=== PATIENT | female | born 1965 | race Caucasian/White ===

== ENCOUNTER 2025-05-01 23:33 | Inpatient (IN) | payer OTHER, SELFPAY ==
--- OUTSIDE RECORDS SUMMARY | 2025-04-30 14:27 | XMS_ITS | Encounter Summary ---
[facility] Organization [facility] Address [address] [place] [address] Care Team Providers Care Malthouse Laborer Name Role Phone Polo Kay NP Primary Care Provider [phone] Reason for Visit * Reason Comments Shortness of Breath X2 d. Hx asthma. Use d inhaler yest w/ no relief. Equal and symmetrical chest rise and fall. NAD. RR appropriate on arrival. Speaking in full sentences Encounter Details Date Type Department Care Team (Late st Contact Info) Description 04/30/2025 2:27 PM EST - 04/30/2025 6:46 PM EST Emergency [facility] Emergency [address] [place] [id number] Iggy Tse MD [address] [place] [address] Pneumonia of left lung due to infectious organism, unspecified part of lung (Primary Dx); Mild intermittent asthma with exacerbation Discharge Disposition: Home or Self Care Social History Tobacco Use Types Packs/Day Years Used Date Smoking Tobacco: Every Day Cigarettes Smokeless Tobacco: Never Comments:Reports cessation o ccurring 2023 after diagnosis of stroke Alcohol Use Standard Drinks/Week Comments Not Currently 0 (1 standard drink = 0.6 oz pur e alcohol) Housing Instability Answer Date Recorde d Are you worried that in the next 2 months you may not have stable housing? Patient declined 08/19/2024 Food Access & Nutrition Answer Date Rec orded Do you have access to a vari ety of food including fruits and vegetables? Patient declined 08/19/2024 Access to Healthcare Answer Date Record ed Within the last 3 months, ho w many times did you visit the emergency department for your medical care? 4 08/19/2024 Health Literacy Answer Date Recorded How often do you need to hav e someone help you when you read instructions, pamphlets, or other written material from your doctor or pharmacy? Patient declined 08/19/2024 Caregiver: How often do you need to have someone help you when you read instructions, pamphlets, or other written material from your doctor or pharmacy? Not on file 025 Financial Risk Answer Date Recorded How hard is it for you to pa y for the very basics like food, housing, medical care, and air conditioning / heating? Patient declined 08/19/2024 Transportation Answer Date Recorded Has the lack of transportati on kept you from meetings, work, or from getting things needed for daily living? Patient declined 08/19/2024 Has the lack of transportati on kept you from medical appointments or from getting medications? Patient declined 08/19/2024 Social Isolation Answer Date Recorded How often do you feel lonely or isolated from those around you? Patient declined 08/19/2024 Food Risk Answer Date Recorded Within the past 12 months we worried whether our food would run out before we got money to buy more. Patient declined 025 Within the past 12 months th e food we bought just didn't last and we didn't have money to get more. Patient declined 07/2024 Dependent Care Answer Date Recorded Do you need help finding or paying for care for your loved ones. For example, child care team lead or elderly care for an older adult? Patient declined 08/19/2024 Education Answer Date Recorded Do you think completing more education or training, like finishing a GED, going to college, or learning a trade, would be helpful for you? Patient declined 08/19/2024 Employment and Income Answer Date Recor ded During the last four weeks, have you been actively looking for work? Patient declined 08/19/2024 Living Situation Answer Date Recorded What is your living situation? Unrecognized valu e 08/19/2024 Interpersonal Safety Answer Date Record ed Physical Abuse Unrecognized value 01/29/2025 Verbal Abuse Unrecognized value 01/29/2025 Comments No Sex and Gender Information Value Date Recorded Sex Assigned at Female 09/02/2024 12:34 PM EDT Legal Sex Female 5:29 AM EST Gender Identity Female 09/02/2024 12:34 PM EDT Sexual Orientation Straight 09/02/2024 12 :34 PM EDT documented as of this encounter Last Filed Vital Signs Vital Sign Reading Time Taken Comments Blood Pressure 143/63 04/30/2025 4:50 PM EST Pulse 76 04/30/2025 4:50 PM EST Temperature 37.1 C (98.8 F) 04/30/2025 4:50 PM EST Respiratory Rate 16 04/30/2025 4:50 PM EST Oxygen Saturation 94% 04/30/2025 4:50 PM EST Inhaled Oxygen Concentration - - Weight - - Height - - Body Mass Index - - documented in this encounter Functional Status * Are you deaf or do you have serious difficulty hearing? Answer Date of Assessment Author No 02/21/2025 6:12 PM EDT Murphy RN * Are you blind or do you have serious difficulty seeing, even when wearing glasses? Answer Date of Assessment Author No 02/21/2025 6:12 PM EDT Murphy RN * Do you have serious difficulty walking or climbing stairs? Answer Date of Assessment Author Yes 02/21/2025 6:12 PM EDT Murphy RN * Do you have serious difficulty dressing or bathing? Answer Date of Assessment Author Yes 02/21/2025 6:12 PM EDT Murphy RN * Because of a physical, mental, or emotional condition, do you have serious difficulty doing errandsalone such as visiting the doctor? Answer Date of Assessment Author No 01/11/2025 8:01 PM EDT Allyson Chester RN * Calculated C-SSRS Risk Score (Lifetime/Recent) Answer Date of Assessment Author No Risk Indicated 04/30/2025 3:10 PM EST Bola Mccloud RN * [place] Suicide Severity Rating Scale (Screener/Recent Self-Report) Question Answer Date of Assessment Author 1. Wish to be (Past 1 Month) No 025 3:10 PM EST Evelyn Mccloud RN 2. Non-Specific Active Suici nolberto Thoughts (Past 1 Month) No 04/30/2025 3:10 PM EST Evelyn Mccloud RN 6. Suicidal Behavior (Lifetime) No 3:10 PM EST Evelyn Mccloud RN documented as of this encounter Mental Status * Because of a physical, mental, or emotional condition, do you have serious difficulty concentrating, remembering, or making decisions? (5 years old or older) Answer Entry Date Author No 02/21/2025 6:12 PM EDT Murphy RN documented in this encounter Discharge Instructions * Discharge Instructions* Iggy Tse MD - 04/30/2025 5:09 PM EST DIAGNOSIS / RESULTS / PROCEDURES (what was done): You came to the ED for cough and shortness of breath. You have pneumonia. INSTRUCTIONS (what you need to do): Call your primary care doctor tomorrow to discuss when you should be seen next. Your doctor may want to arrange follow up for your visit today, or may ask to see you at your next scheduled visit. If you have difficulty breathing which does not respond to your home medications, return to the ED immediately. MEDICATIONS (what you need to take): Budesonide/formoterol inhaler (brand name Symbicort 80-4.5),1 to 2 puffs twice daily for maintenance, 1 to 2 puffs every 2-4 hours as needed for asthma symptoms. Doxycycline twice daily for 5 days documented in this encounter Medications at Time of Discharge aspirin 81 mg chewable tablet Chew 1 tablet (81 mg total) 1 (one) time each day. 12/03/2023 atorvastatin (LIPITOR) 80 mg tablet Take 1 tablet (80 mg total) by mouth at bedtime. budesonide-formo teroL (SYMBICORT) 160-4.5 mcg/actuation inhaler Inhale 2 puffs by mouth 2 (two) times a day. Rinse mouth with water after use to reduce aftertaste and incidence of candidiasis. Do not swallow. budesonide-formo teroL (SYMBICORT) 80-4.5 mcg/actuation inhaler Inhale 2 puffs by mouth 2 (two) times a day. May take additional 1 to 2 puffs as needed every 4 hours for wheeze. Rinse mouth with water after use to reduce aftertaste and incidence of candidiasis. Do not swallow. 1 each 04/30/2025 doxycycline (MONODOX) 100 mg capsule Take 1 capsule (100 mg total) by mouth 2 (two) times a day for 7 days. Take with at least 8 ounces (large glass) of water, do not lie down for 30 minutes after 14 each 04/30/2025 5 insulin glargine (LANTUS) 100 unit/mL injection Inject 12 Units under the skin at bedtime. insulin lispro (HumaLOG KwikPen) 100 unit/mL injection pen Inject 2-14 Units under the skin 3 (three) times a day before meals. NIFEdipine XL (PROCARDIA XL) 60 mg 24 hr tablet Take 1 tablet (60 mg total) by mouth 1 (one) time each day before breakfast. Do not crush, chew, or split. 30 each 02/03/2025 6 documented as of this encounter Ordered Prescriptions Prescription Sig Dispense Quantity Refills Last Filled Start Date End Date budesonide-formote roL (SYMBICORT) 80-4.5 mcg/actuation inhaler Inhale 2 puffs by mouth 2 (two) times a day. May take additional 1 to 2 puffs as needed every 4 hours for wheeze. Rinse mouth with water after use to reduce aftertaste and incidence of candidiasis. Do not swallow. 1 each 04/30/2025 doxycycline (MONODOX) 100 mg capsule Take 1 capsule (100 mg total) by mouth 2 (two) times a day for 7 days. Take with at least 8 ounces (large glass) of water, do not lie down for 30 minutes after 14 each 04/30/2025 5 documented in this encounter Discharge Disposition Disposition Code Departure Means Destination Comment s Home or Self Care Report to ems. Pt out of ed with ems with all belongings documented in this encounter Progress Notes * Evelyn Mccloud RN - 04/30/2025 2:27 PM EST Pt presents to ed [facility] from home lives w/ daughter. W/ c/o of Cough sob. X2 days. Denies fevers Ems gave albuterol neb x1 en route Pt is a/ox 4 speech clear Airway clear and patent, free and equal respirations Baseline O2 : ra Baseline ambulation status : bed bound. On first lock plater Notable swelling to L arm and leg , pt states this is baseline and now worsening. Notable dry healing wounds to L ankle pt states she hit her leg against a leg rest a few wks ago. No redness, streaking or warmth noted. Pt does report they are tender to palpation. Pt reports hx of Cva x2 w/ L sided hemiplegia. Ashtma , dm, hypertn, seizures. Is med complaint VS obtained and charted. Pt changed into hospital gown, Bed locked and in lowest position call ziegler within reach. Bilat side rails up for safety. * Iggy Tse MD - 04/30/2025 2:20 PM EST Emergency Medicine Note Patient Name: Kisha Vickers Initial Evaluation: 04/30/2025 : 1965 Patient's PCP: Polo Kay NP Emergency Physician: Iggy Tse MD History of Present Illness Chief Complaint: Chief Complaint Patient presents with Shortness of Breath X2 d. Hx asthma. Used inhaler yest w/ no relief. Equal and symmetrical chest rise and fall. NAD. RR appropriate on arrival. Speaking in full sentences HPI: 60-year-old female presents for cough and shortness of breath since yesterday. Patient does have a history of asthma, states she feels like she is having an asthma flareup. No fevers chills abdominal pain nausea vomiting or myalgias. States she took albuterol MDI 3 pumps x 2 at home without significant effect. Previous History Medical History[1] Surgical History[2] Social History[3] Family History[4] has no known allergies. Medications Ordered Prior to Encounter[5] Physical Exam ED Triage Vitals [04/30/25 1438] Temp Heart Rate Resp BP 36.7 ??C (98.1 ??F) 77 16 (!) 148/66 SpO2 Temp Source Heart Rate Source Patient Position 98 % Oral Monitor Lying BP Location FiO2 (%) Right arm -- GENERAL: Well-Appearing SKIN: Warm, dry, normal for ethnicity. No rashes. HEENT: Normal sclera, noninjected nonicteric CHEST: Normal peripheral perfusion, no edema PULMONARY: Mild accessory muscle use, 3-5 word dyspnea ABDOMINAL: Nondistended NEURO: Alert and oriented, moving all extremities equally PSYCHIATRIC: Normal affect, fluid speech, good eye contact and appropriate demeanor. Results Labs Reviewed [id number], RSV, FLU A AND B QUALITATIVE RT-PCR, INTERNAL LAB - Normal Result Value Influenza A PCR Not Detected Influenza B PCR Not Detected RSV PCR Not Detected SARS COV-2 Not Detected Abnormal Labs Reviewed - No abnormal labs to display XR Chest 2 Views Final Result Marked interval worsening. Near complete opacification left hemithorax at least some of which is due to fluid. There is aeration of the trachea and left mainstem bronchus. There is no definite bronchogram within the left lower lobe bronchus. -------- FINAL REPORT -------- Dictated By: Shaq Luna Dictated Date: 04/30/2025 16:57 ET Assigned Physician: Shaq Luna Reviewed and Electronically Signed By: Shaq Luna Signed Date: 04/30/2025 17:01 ET Workstation ID: [id number] Transcribed By: Self Edit Transcribed Date: 04/30/2025 16:57 ET I have discussed the incidental/abnormal imaging and/or lab abnormalities with the patient and haveinstructed them the need for further evaluation and workup with their primary care doctor. Medical Decision Making Differential Diagnosis: Asthma exacerbation, viral syndrome, pneumonia MDM: 60-year-old female history of asthma presents on day 2 of cough shortness of breath. Likely asthma exacerbation, updraft steroids and fluids ordered. Possible viral syndrome, evaluate short viral panel. Possible pneumonia, evaluate chest x-ray. Clinical Impression: Asthma exacerbation SEPSIS Exemption: [ x ] It is unlikely this patient has sepsis at the time of my evaluation. Medications cefTRIAXone (ROCEPHIN) 2 g in sterile water 20 mL IV syringe (has no administration in time range) azithromycin (ZITHROMAX) 500 mg in sodium chloride 0.9 % 250 mL IVPB (has no administration in timerange) methylPREDNISolone sodium succ (SOLU-Medrol) injection 125 mg (125 mg intravenous Given 04/30/25 1519) ipratropium-albuteroL (DUONEB) 0.5-2.5 mg/3 mL nebulizer solution 3 mL (3 mL nebulization Given 04/30/25 1519) albuterol 2.5 mg /3 mL (0.083 %) nebulizer solution 5 mg (5 mg nebulization Given 04/30/25 1518) lactated Ringer's bolus 1,000 mL (1,000 mL intravenous New Bag 04/30/25 1529) ED Course as of 04/30/25 1711 Sat Apr 30, 2025 1553 Short viral panel is negative, chest x-ray pending. [MG] 1707 XR Chest 2 Views My independent review and interpretation of chest x-ray: Left-sided pneumonia [MG] 1707 Patient appears to have left-sided pneumonia leading to the patient's respiratory symptoms. Patient's symptoms have markedly improved after updraft. She continues to have no O2 requirement. Willdischarge with Symbicort and antibiotics. [MG] ED Course User Index [MG] Iggy Tse MD Clinical Impressions as of 04/30/25 171 Mild intermittent asthma with exacerbation Pneumonia of left lung due to infectious organism, unspecified part of lung Procedures Procedures Diagnosis 1. Pneumonia of left lung due to infectious organism, unspecified part of lung 2. Mild intermittent asthma with exacerbation Disposition Discharge ED Prescriptions Medication Sig Dispense Start Date End Date Auth. Provider doxycycline (MONODOX) 100 mg capsule Take 1 capsule (100 mg total) by mouth 2 (two) times a day for7 days. Take with at least 8 ounces (large glass) of water, do not lie down for 30 minutes after 14each 04/30/2025 05/07/2025 Iggy Tse MD budesonide-formoteroL (SYMBICORT) 80-4.5 mcg/actuation inhaler Inhale 2 puffs by mouth 2 (two) times a day. May take additional 1 to 2 puffs as needed every 4 hours for wheeze. Rinse mouth with waterafter use to reduce aftertaste and incidence of candidiasis. Do not swallow. 1 each 04/30/2025 -- MD Iggy Tovar MD 04/30/25 1503 [1] Past Medical History: Diagnosis Date Anemia in chronic renal disease Symptomatic of CKD (chronic kidney disease) CKD (chronic kidney disease), stage III ([facility] V24, [facility] V28) CVA (cerebral vascular accident) ([facility] V24, [facility] V28) L sided hemiparesis Depression Depression with anxiety Diabetes mellitus ([facility] V24, [facility] V28) Meade catheter in place HLD (hyperlipidemia) HTN (hypertension) Hyperlipidemia Hypertension Smoker Urinary retention [2] Past Surgical History: Procedure Laterality Date CHOLECYSTECTOMY [3] Social History Tobacco Use Smoking status: Every Day Types: Cigarettes Smokeless tobacco: Never Tobacco comments: Reports cessation occurring 2023 after diagnosis of stroke Substance Use Topics Alcohol use: Not Currently Drug use: Never [4] Family History Problem Relation Name Age of Onset Hypertension Other Hyperlipidemia Other Diabetes Other [5] No current facility-administered medications on file prior to encounter. Current Outpatient Medications on File Prior to Encounter Medication Sig Dispense Refill aspirin 81 mg chewable tablet Chew 1 tablet (81 mg total) 1 (one) time each day. atorvastatin (LIPITOR) 80 mg tablet Take 1 tablet (80 mg total) by mouth at bedtime. budesonide-formoteroL (SYMBICORT) 160-4.5 mcg/actuation inhaler Inhale 2 puffs by mouth 2 (two) times a day. Rinse mouth with water after use to reduce aftertaste and incidence of candidiasis. Do notswallow. bumetanide (BUMEX) 1 mg tablet Take 1 tablet (1 mg total) by mouth 2 (two) times a day. 60 each 0 cloNIDine (JUNPZPUS-MVR-1) 0.2 mg/[address] 1 patch on the skin 1 (one) time per week. 4 each 0 furosemide (LASIX) 20 mg tablet Take 1 tablet (20 mg total) by mouth 1 (one) time each day for 10 days. 10 each 0 hydrALAZINE (APRESOLINE) 100 mg tablet Take 1 tablet (100 mg total) by mouth 3 (three) times a day.90 each 0 insulin glargine (LANTUS) 100 unit/mL injection Inject 12 Units under the skin at bedtime. insulin lispro (HumaLOG KwikPen) 100 unit/mL injection pen Inject 2-14 Units under the skin 3 (three) times a day before meals. labetaloL (NORMODYNE) 200 mg tablet Take 1 tablet (200 mg total) by mouth 3 (three) times a day. 90each 0 lamoTRIgine (LaMICtal) 25 mg tablet Take 1 tablet (25 mg total) by mouth 1 (one) time each day for 2 days, THEN 1 tablet (25 mg total) 2 (two) times a day. 62 each 0 nicotine (NICODERM CQ) 14 mg/[address] 1 patch on the skin 1 (one) time each day at the same time. 30 each 0 NIFEdipine XL (PROCARDIA XL) 60 mg 24 hr tablet Take 1 tablet (60 mg total) by mouth 1 (one) time each day before breakfast. Do not crush, chew, or split. 30 each 0 Iggy Tse MD 04/30/25 1711 documented in this encounter Plan of Treatment Not on file documented as of this encounter Goals Goal Patient Goal Type Associated Problems Recent Progress Patient-Stated? Author family goal General No Elena Wick, OT Note: Help pt get better as much as possible ltg (8 visits) General On track( 025 2:03 PM EST) No Elena Wick, OT Note: PROM L shldr elevation at least 90' for ease bathing axilla, donning tshirt 05/28/24 MET Partic in neuromuscular re-ed/HEP instruction, to minimize pain in LUE 05/28/24 MET Pt will initiate LUE as dependent stablizer (FUEL level 2; , currently Fuel Level1/Non fcnl) at least 50% of ADL tasks 05/28/24 Not Met, remains primarily Level 1 d/t flaccidity/tone/neglect Demo ability to don/doff short sleeve tshirt w/ set-up and vc's 05/28/24: partial met; able to doff short sleeve indep STG _ PT General No Johana To, PT Note: Pt will be I with HEP to demonstrate compliance with POC Pt will demonstrate mod assist from SL to sitting Pt will demonstrate mod assist fro STS LTG - PT General No Johana To, PT Note: Pt will demonstrate gait with platform walker Pt will be min assist transfer SL to sitting Pt will demonstrate min assist STS ST LTG General No Ene Moffett, IN PROCESS INSPECTOR Note: Pt will improve cognitive linguistic function to participate and communicate in basic ADLs supervision ST STGs General No Ene Moffett, IN PROCESS INSPECTOR Note: Pt will participate with development of personalized HEP to perform 4-5xs/wk with min assist for modifications Pt will participate in ongoing training of internal/external memory strategies and ID pertinent techniques to use in daily life with cg assist Pt will complete auditory and visual working memory/mental flexibility tasks of 2-3 components with min cues to be 80%ac Pt will complete verbal and written concrete convergent and divergent organization tasks with min semantic cues documented as of this encounter Procedures Procedure Name Priority Date/Time Associated Diagnosis Comments XR CHEST 2 VIEWS STAT 04/30/2025 4:45 PM EST [id number], RSV, FLU A AND B QUALITATIVE RT-PCR, INTERNAL LAB STAT 04/30/2025 2:59 PM EST documented in this encounter Results * XR Chest 2 Views (04/30/2025 4:45 PM EST) Anatomical Region Laterality Modality Body Radiographic Susan ging 04/30/2025 4:57 PM EST Impressions 04/30/2025 5:01 PM EST Marked interval worsening. Near complete opacification left hemithorax at least some of which is due to fluid. There is aeration of the trachea and left mainstem bronchus. There is no definite bronchogram within the left lower lobe bronchus. -------- FINAL REPORT -------- Dictated By: Shaq Luna Dictated Date: 04/30/2025 16:57 ET Assigned Physician: Shaq Luna Reviewed and Electronically Signed By: Shaq Luna Signed Date: 04/30/2025 17:01 ET Workstation ID: [id number] Transcribed By: Self Edit Transcribed Date: 04/30/2025 16:57 ET Narrative 04/30/2025 5:01 PM EST EXAMINATION: CHEST CLINICAL INFORMATION: Cough. Shortness of breath COMPARISON: Frontal view 04/04/25 TECHNIQUE: 2 views of the chest FINDINGS: There is kyphosis and rotation. The lateral view is significantly limited. There is calcification of the aortic arch. The cardiac size daisha and vasculature to the left side are obscured. There is opacification of the lower three quarters of the left hemithorax tracking along the lateral chest wall. Some vascular prominence in the right lung. No pneumothorax. No definite focal bony lesion. The humeral head is inferiorly positioned relative to the glenoid on the left. Chronic subluxation or laxity are present. Procedure Note Shaq Luna MD - 04/30/2025 EXAMINATION: CHEST CLINICAL INFORMATION: Cough. Shortness of breath COMPARISON: Frontal view 04/04/25 TECHNIQUE: 2 views of the chest FINDINGS: There is kyphosis and rotation. The lateral view is significantlylimited. There is calcification of the aortic arch. The cardiac size daisha andvasculature to the left side are obscured. There is opacification of thelower three quarters of the left hemithorax tracking along the lateralchest wall. Some vascular prominence in the right lung. No pneumothorax. No definite focal bony lesion. The humeral head is inferiorly positioned relative to the glenoid on theleft. Chronic subluxation or laxity are present. IMPRESSION: Marked interval worsening. Near complete opacification left hemithorax atleast some of which is due to fluid. There is aeration of the trachea andleft mainstem bronchus. There is no definite bronchogram within the leftlower lobe bronchus. -------- FINAL REPORT -------- Dictated By: Shaq Luna Dictated Date: 04/30/2025 16:57 ET Assigned Physician: Shaq Luna Reviewed and Electronically Signed By: Shaq Luna Signed Date: 04/30/2025 17:01 ET Workstation ID: [id number] Transcribed By: Self Edit Transcribed Date: 04/30/2025 16:57 ET Iggy Tse MD IMG XR PROCEDURES Final Result * [id number], RSV, Influenza A and B qualitative RT-PCR (04/30/2025 2:59 PM EST) Influenza A PCR Not Detected Not Detected LAB MICROBIOLOGY METHOD 04/30/2025 3:53 PM EST [facility] Influenza B PCR Not Detected Not Detected LAB MICROBIOLOGY METHOD 04/30/2025 3:53 PM EST [facility] RSV PCR Not Detected Not Detected LAB MICROBIOLOGY METHOD 04/30/2025 3:53 PM EST [facility] SARS COV-2 Not Detected Not Detected LAB MICROBIOLOGY METHOD 04/30/2025 3:53 PM EST [facility] Swab Both anterior nares / Unknown Non-blood Collection / Unknown 04/30/2025 2:59 PM EST 04/30/2025 3:08 PM EST Iggy Tse MD LAB MICROBIOLOGY - [facility]AL [facility] Final Result [facility] [address] [place] [address], [place] [phone] documented in this encounter Visit Diagnoses Diagnosis Pneumonia of left lung due to infectious organism, unspecified part of lung- Primary Mild intermittent asthma with exacerbation Unspecified asthma, with exacerbation documented in this encounter Administered Medications Inactive Administered Medications - up to 3 most recent administrations Medication Order MAR Action Action Date Dose Rate Site albuterol 2.5 mg /3 mL (0.083 %) nebulizer solution 5 mg 5 mg, nebulization, Once, On 04/30/25 at 1455, For 1 dose Given 04/30/2025 3:18 PM EST 5 mg azithromycin (ZITHROMAX) 500 mg in sodium chloride 0.9 % 250 mL IVPB 500 mg, intravenous, at 250 mL/hr, Administer over 60 Minutes, Once, On 04/30/25 at 1709, For 1 dose, Indication: Sepsis, Pneumonia, Community Acquired, Suspected source: . New Bag 04/30/2025 5:41 PM EST 500 mg 250 mL/hr cefTRIAXone (ROCEPHIN) 2 g in sterile water 20 mL IV syringe 2 g, intravenous, Administer over 3 Minutes, Once, On 04/30/25 at 1709, For 1 dose, Do not administer simultaneously with any calcium containing solutions via a Y-site in any patient., Indication: Sepsis, Pneumonia, Community Acquired, Suspected source: . Given 04/30/2025 5:42 PM EST 2 g ipratropium-albuteroL (DUONEB) 0.5-2.5 mg/3 mL nebulizer solution 3 mL 3 mL, nebulization, Once, On 04/30/25 at 1455, For 1 dose Given 04/30/2025 3:19 PM EST 3 mL lactated Ringer's bolus 1,000 mL 1,000 mL, intravenous, Once, On 04/30/25 at 1455, For 1 dose New Bag 04/30/2025 3:29 PM EST 1,000 mL methylPREDNISolone sodium succ (SOLU-Medrol) injection 125 mg 125 mg, intravenous, Once, On 04/30/25 at 1455, For 1 dose, Reconstitute each 125 mg vial with 2 mL sterile water for injection to a concentration of 62.5 mg/mL. Given 04/30/2025 3:19 PM EST 125 mg documented in this encounter Active and Recently Administered Medications Times are shown in EST. Scheduled Medication Order 04/28/2025 04/29/2025 04/30/2025 albuterol 2.5 mg /3 mL (0.083 %) nebulizer solution 5 mg (COMPLETED) 5 mg, nebulization, Once, On 04/30/25 at 1455, For 1 dose 1518 (Given - Provid er: Evelyn Mccloud RN) azithromycin (ZITHROMAX) 500 mg in sodium chloride 0.9 % 250 mL IVPB (COMPLETED) 500 mg, intravenous, at 250 mL/hr, Administer over 60 Minutes, Once, On 04/30/25 at 1709, For 1 dose, Indication: Sepsis, Pneumonia, Community Acquired, Suspected source: . 1741 (New Bag - Prov ider: Evelyn Mccloud RN)1845 (Stopped - Provider: Evelyn Mccloud RN) cefTRIAXone (ROCEPHIN) 2 g in sterile water 20 mL IV syringe (COMPLETED) 2 g, intravenous, Administer over 3 Minutes, Once, On 04/30/25 at 1709, For 1 dose, Do not administer simultaneously with any calcium containing solutions via a Y-site in any patient., Indication: Sepsis, Pneumonia, Community Acquired, Suspected source: . 1742 (Given - Provid er: Evelyn Mccloud RN) ipratropium-albuteroL (DUONEB) 0.5-2.5 mg/3 mL nebulizer solution 3 mL (COMPLETED) 3 mL, nebulization, Once, On 04/30/25 at 1455, For 1 dose 1519 (Given - Provid er: Evelyn Mccloud RN) lactated Ringer's bolus 1,000 mL (COMPLETED) 1,000 mL, intravenous, Once, On 04/30/25 at 1455, For 1 dose 1529 (New Bag - Prov ider: Evelyn Mccloud RN)1845 (Stopped - Provider: Evelyn Mccloud RN) methylPREDNISolone sodium succ (SOLU-Medrol) injection 125 mg (COMPLETED) 125 mg, intravenous, Once, On 04/30/25 at 1455, For 1 dose, Reconstitute each 125 mg vial with 2 mL sterile water for injection to a concentration of 62.5 mg/mL. 1519 (Given - Provid er: Evelyn Mccloud RN) documented in this encounter Orders Medications Ordered That Ray ht Not Have Been Administered Count Last Ordered Date First Ordered Date sodium chloride 0.9 % infusi on - ADS Override Pull 1 04/30/2025 documented in this encounter Additional Health Concerns Infection Onset Date Last Indicated Resolved Time ESBL Comment:Escherichia coli (+)ESBL urine 12/29/2024 01/31/2025 Respiratory Rule-Out 04/30/2025 04/30/2025 025 3:53 PM EST COVID-19 Rule-Out 04/30/2025 04/30/2025 04/30/2025 3:53 PM EST documented as of this encounter Care Teams [employer] Relationship Specialty Start Date End Date Polo Kay NP [address] [place] [address] PCP - General Nurse Practitioner 12/28/24 documented as of this encounter
--- NOTE | ~2025-05-01 | XR_ITS ---
EXAMINATION: XR CHEST CLINICAL INFORMATION: s/p thoracentesis L side COMPARISON: Previous chest x-ray May 02, [address] May 02, 2025 TECHNIQUE: Frontal view of the chest was obtained. FINDINGS: The right lung is clear. There is atelectasis/consolidation at the left lung base. There is increased density projecting over the left upper lobe. It is uncertain whether this is related to superimposition of bone and vascular structures, could represent pneumonia or nodule. There is a small left pleural effusion postthoracentesis. No pneumothorax. No right pleural effusion. Cardiac silhouette is enlarged. Calcified aortic knob. Degenerative changes of the spine. The inferior dislocation or subluxation of the left humeral head with respect to the glenoid unchanged. XR/XR chest 1V IMPRESSION: No pneumothorax post left thoracentesis. Small residual left pleural effusion. Left lower lobe atelectasis/consolidation. Increased density over the left upper lobe, question representing superimposition of the left ribs and vessels versus nodule or infiltrate. Chest x-ray follow-up with apical lordotic view recommended. Electronically signed by: Lynette Kevin MD 05/02/2025 02:33 PM EST
--- NOTE | ~2025-05-01 | US_ITS ---
EXAMINATION: ULTRASOUND-GUIDED THORACENTESIS CLINICAL INFORMATION: Left pleural effusion COMPARISON: Previous chest x-ray and chest CT from earlier the same day TECHNIQUE: Procedure risks and benefits including bleeding, infection and pneumothorax were discussed with the patient and informed consent was obtained. The patient was positioned in the right decubitus position. The left posterior lateral chest was prepped and draped in usual fashion. Using guidance for Mongolian Yueh needle, access to the left pleural effusion was obtained. 900 mL of cloudy yellow fluid was removed. Diagnostic studies. Follow-up chest x-ray revealed no pneumothorax. FINDINGS: There is a large left pleural effusion. US/US thoracentesis IMPRESSION: Ultrasound-guided left thoracentesis. Electronically signed by: Lynette Kevin MD 05/02/2025 04:20 PM [facility]
--- NOTE | ~2025-05-01 | US_ITS ---
EXAMINATION: US TRIPLEX LOWER EXTREMITY, BILATERAL CLINICAL INFORMATION: Bilateral lower extremity edema COMPARISON: None available. TECHNIQUE: Color-flow triplex imaging with spectral analysis and compression Doppler were performed on the bilateral lower extremities. FINDINGS: Left small saphenous vein is partially imaged. Examination was limited due to patient's ability to change positions. The proximal vessel contains low level echogenic material and no flow on color Doppler and spectral interrogation. Respiratory variation, normal compression and augmented flow are noted throughout the bilateral lower extremities. The visualized common femoral vein, superficial femoral vein, profunda femoral vein, popliteal vein and midcalf peroneal and posterior tibial venous segments show no evidence of deep venous thrombosis bilaterally. US/US venous duplex LE BI IMPRESSION: Superficial venous thrombosis involving the small saphenous vein in the left lower extremity. The extent of thrombosis is not fully imaged due to patient immobility. No evidence of deep venous thrombosis involving the bilateral lower extremities. Electronically signed by: Ralph Anderson MD 05/03/2025 11:08 AM [facility]
--- NOTE | ~2025-05-01 | IR_ITS ---
PROCEDURE: IR INSERTION OF TUNNEL CATHETER CLINICAL INFORMATION: Renal failure COMPARISON: None available. TECHNIQUE: Procedure risks and benefits including bleeding, infection and pneumothorax were discussed with the patient and informed consent was obtained. The right neck and chest was prepped and draped in the usual sterile fashion. All elements of maximal sterile barrier technique followed including use of cap, mask, sterile gown, sterile gloves, a sterile full body drape and hand hygiene. Also followed skin preparation with 2% chlorhexidine for cutaneous antisepsis, and sterile ultrasound preparation with sterile gel and probe cover when applicable. The skin and soft tissues of the right lower neck were anesthetized with 1% lidocaine plain. A small incision was made. Using a 5 Taiwanese micropuncture system, right internal jugular vein access was obtained. Over an 018 wire, a 5 Taiwanese dilator was positioned in the SVC. The skin and soft tissues of the right upper anterior chest were anesthetized with 1% lidocaine plain. A small incision was made. A subcutaneous tunnel from the chest to the neck incision was anesthetized with 1% lidocaine plain. Using a tunneler, a 14.5 Taiwanese 23 cm in length glide catheter permacath was tunneled from the chest the neck incision. An 035 guidewire was advanced through the dilator into the IVC. Following serial dilatation through the peel-away sheath, permacath was advanced centrally. The neck incision was closed using a 3 0 absorbable subcuticular suture. The chest incision was closed using a 4 0 absorbable mattress suture. Both ports flushed well and good blood return and were instilled with appropriate volume of heparin 1000 units per mL solution, 1.8 mL in each port. Patient received Ancef 2 g IV during the procedure. Real-time ultrasound guidance was used to document vein patency and for needle entry. A formal ultrasound pressure was recorded. Fluoroscopy time 0.2 minutes. Patient dose 0.033 mg/sq m FINDINGS: There is a right internal jugular permacath with tip projecting over the cavoatrial junction. IR/IR cvc insert central tunnel IMPRESSION: Right internal jugular permacath placement. Electronically signed by: Lynette Kevin MD 05/05/2025 11:50 AM [facility]
--- NOTE | ~2025-05-01 | CT_ITS ---
CLINICAL HISTORY: large effusion on the left side CT chest without contrast Comparison: None provided Findings: Cardiomegaly. The visualized thyroid and mediastinum are unremarkable. Large left pleural effusion. Associated partial atelectasis left lung with relative sparing of the left upper lobe. There are patchy ground-glass opacities scattered through the aerated lungs bilaterally. Portions of the right and left chest wall have been excluded from view. Body wall edema. No acute fractures. IMPRESSION: 1. Large left pleural effusion with associated left lung atelectasis. 2. Scattered ground-glass opacities in both lungs are indeterminate. This could be superimposed infectious etiology. 3. Generalized body wall edema. Consider volume overload. This document has been electronically signed by: Lawrence Ulrich MD on 05/02/2025 04:15:09
--- NOTE | ~2025-05-01 | US_ITS ---
EXAMINATION: US RETROPERITONEAL LIMITED (RENAL ONLY) CLINICAL INFORMATION: Acute kidney insufficiency. Rule out hydronephrosis and PVR. COMPARISON: None available. TECHNIQUE: Real-time imaging of the kidneys. FINDINGS: RIGHT KIDNEY: 12.5 x 4.7 x 5.2 cm (SAG x AP x TRV). The kidney is normal in size, contour, and echogenicity. Renal cortical thickness is normal. No calculi or focal parenchymal lesions. No hydronephrosis. LEFT KIDNEY: 10.7 x 4.9 x 3.9 cm (SAG x AP x TRV). The kidney is normal in size, contour, and echogenicity. Renal cortical thickness is normal. No calculi or focal parenchymal lesions. No hydronephrosis. Bladder not imaged. US/US renal BI IMPRESSION: Normal renal ultrasound. Electronically signed by: Lynette Kevin MD 05/04/2025 04:23 PM [facility]
--- NOTE | ~2025-05-01 | XR_ITS ---
CLINICAL HISTORY: sob 1 view chest x-ray Comparison: None provided Findings: Large left pleural effusion. The right lung is clear. Cardiomegaly. Osteopenia. No acute fracture. IMPRESSION: 1. Inferior dislocation of the left humeral head. 2. Large left pleural effusion. This document has been electronically signed by: Lawrence Ulrich MD on 05/02/2025 02:01:21
--- NOTE | ~2025-05-01 | IR_ITS ---
PROCEDURE: IR INSERTION OF TUNNEL CATHETER CLINICAL INFORMATION: Renal failure COMPARISON: None available. TECHNIQUE: Procedure risks and benefits including bleeding, infection and pneumothorax were discussed with the patient and informed consent was obtained. The right neck and chest was prepped and draped in the usual sterile fashion. All elements of maximal sterile barrier technique followed including use of cap, mask, sterile gown, sterile gloves, a sterile full body drape and hand hygiene. Also followed skin preparation with 2% chlorhexidine for cutaneous antisepsis, and sterile ultrasound preparation with sterile gel and probe cover when applicable. The skin and soft tissues of the right lower neck were anesthetized with 1% lidocaine plain. A small incision was made. Using a 5 Niuean micropuncture system, right internal jugular vein access was obtained. Over an 018 wire, a 5 Niuean dilator was positioned in the SVC. The skin and soft tissues of the right upper anterior chest were anesthetized with 1% lidocaine plain. A small incision was made. A subcutaneous tunnel from the chest to the neck incision was anesthetized with 1% lidocaine plain. Using a tunneler, a 14.5 Niuean 23 cm in length glide catheter permacath was tunneled from the chest the neck incision. An 035 guidewire was advanced through the dilator into the IVC. Following serial dilatation through the peel-away sheath, permacath was advanced centrally. The neck incision was closed using a 3 0 absorbable subcuticular suture. The chest incision was closed using a 4 0 absorbable mattress suture. Both ports flushed well and good blood return and were instilled with appropriate volume of heparin 1000 units per mL solution, 1.8 mL in each port. Patient received Ancef 2 g IV during the procedure. Real-time ultrasound guidance was used to document vein patency and for needle entry. A formal ultrasound pressure was recorded. Fluoroscopy time 0.2 minutes. Patient dose 0.033 mg/sq m FINDINGS: There is a right internal jugular permacath with tip projecting over the cavoatrial junction. IR/IR us guide venous access IMPRESSION: Right internal jugular permacath placement. Electronically signed by: Lynette Kevin MD 05/05/2025 11:50 AM [facility]
--- NOTE | ~2025-05-01 | US_ITS ---
CLINICAL HISTORY: Swelling Venous duplex ultrasound left upper extremity Comparison: None provided Findings: Limited exam due to patient edema and inability to move arm. The left axillary and basilic veins are not visualized. Accessible deep venous segments are fully compressible with normal Doppler color flow and spectral tracings. Subcutaneous edema. IMPRESSION: Negative for left upper extremity deep vein thrombosis in the visualized veins. Limited exam. The left axillary and basilic veins are not visualized. This document has been electronically signed by: Bennie Poe MD on 05/03/2025 22:06:28
[2025-05-01 23:46] VITALS: BP 154/82; PULSE 70; O2SAT 100; BMI 24.2
[2025-05-01 23:54] VITALS: BP 157/75; PULSE 80; RESP 17; TEMP 36.9; O2SAT 94
--- NOTE | 2025-05-01 23:56 | ECG_ITS ---
Test Reason : SOB Blood Pressure : */* mmHG Vent. Rate : 81 BPM Atrial Rate : 81 BPM P-R Int : 142 ms QRS Dur : 82 ms QT Int : 392 ms P-R-T Axes : 62 19 59 degrees QTcB Int : 455 ms Sinus rhythm with marked sinus arrhythmia Anterior infarct , age undetermined Abnormal ECG When compared with ECG of 04-Dec-2011 09:16, No significant changes seen Referred By: Estela Rowe Electronically Signed By: Lenny Flores
[2025-05-02] VITALS (17 sets, daily range): BP systolic 135–179; BP diastolic 52–86; PULSE 71–91; RESP 16–24; TEMP 36.6–37.2; O2SAT 92–97; BMI 24.2
--- NOTE | 2025-05-02 | ED_ITS ---
HPI - SOB/Dyspnea General Chief Complaint: Dyspnea Stated Complaint: sob with cough Time Seen by Provider: 05/01/25 23:38 History of Present Illness HPI Narrative: patient is a 60-year-old female presents today with having increasing shortness of breath with the cough. There is no fever. Has a history of smoking for many years. Tried to use an asthma inhaler to no avail. Patient has a long history of diabetes. Long history of smoking. History of wheezing. History of coughing upper respiratory symptoms that is been ongoing but seems to be worse the last 2 days. No leg swelling. Previous history of stroke. No known history of congestive heart failure. No diaphoresis. No leg swelling. No travel history. Not on blood thinners. No fever at home. Related Data Allergies Allergy/AdvReac Type Severity Reaction Status Date / Time No Known Allergies Allergy Unverified 02/03/20 16:13 amy inhibitors Allergy Unknown cough Uncoded 05/01/25 23:51 Review of Systems 2 Review of Systems: Positive coughing positive shortness of breath Yes all other systems are reviewed and are negative PMFSH Past Medical History Attestation statement: The following information was validated with the patient. Social History Social History Smoked in Last 30 Days: Yes Use of substances other than those prescribed or required for medical reasons: No Advance Directives: No Advance Directives Information Provided: No Patient : No Physical Exam 2 Exam: Exam: Appearance: Alert. Oriented X3. No acute distress. Eyes: Pupils equal, round and reactive to light. ENT: Pharynx normal. Neck: Normal inspection. Neck supple. No lymph nodes noted. No crepitus CVS: Normal heart rate and rhythm. Pulses normal. Normal S1 and S2 Respiratory: diminished breath sounds bilaterally minimal wheezing noted at the bases. Abdomen: Soft and nontender. No rigidity. No distention. good BS x4 Skin: Skin warm and dry. Normal skin color. Normal skin turgor. Extremities: No lower extremity edema. Neurovascular intact to all extremities. No Lacerations. No Rash Neuro: Oriented X 3. No motor deficit. No sensory deficit. Moving all extermities. No slurred speech Vital Signs: Vital Signs: Last Vital Signs Temp 98.4 F 05/01/25 23:54 Pulse 78 05/02/25 00:26 Resp 24 H 12/15/25 00:26 BP 157/75 H 05/01/25 23:54 Pulse Ox 94 05/01/25 23:54 O2 Del Method Room Air 05/01/25 23:54 BMI result Body Mass Index 24.2 Medications Administered Discontinued Medications Generic Name Dose Route Start Last Admin Trade Name Rosa PRN Reason Stop Dose Admin Albuterol Sulfate 2.5 mg/ 0 mg 05/01/25 23:59 05/02/25 00:26 Albuterol/Ipratropium 3 ml INHALE 05/02/25 00:00 1 dose ONCE ONE Administration Methylprednisolone Sodium Succinate 125 mg 05/01/25 23:58 05/02/25 00:14 Methylprednisolone Sod Succ 125 Mg/2 Ml Vial IVPUSH 05/01/25 23:59 125 mg ONCE ONE Administration Medical Decision Making Medical Decision Making MDM Narrative: patient's O2 sat was approximately 93% on room air. Had increased shortness of breath was seen at [facility] yesterday. Patient is on Bumex. Patient has a history of pleural effusion. Had Pleurocentesis twice in the past. my interpretation patient's chest x-ray showed a large pleural effusion on the left side. Likely contributing to the shortness of breath. radiology's also read a inferiorly dislocated shoulder patient claims this is chronic not new. She had a stroke on that side and since then she has been having a dislocated shoulder her troponin is negative. VBG showed a normal pH. No significant CO2 retention. COVID flu RSV were all negative. My interpretation patient's EKG showed a sinus rhythm heart rate is 80 LA QRS QTC normal no acute ST segment elevation noted. Differential Diagnosis Differential Diagnoses: The differential diagnosis associated with the presentation includes Pleural effusion, COPD, pneumonia, electrolyte disturbance Admission/Observation Consideration of admission/observation: Escalation of care including admission/observation considered will require admission Lab Data [facility] Lab Attestation statement: I reviewed the patient's lab results. 05/02/25 00:34 05/02/25 00:34 Labs: Lab Results 05/02/25 05/02/25 05/02/25 Range/Units 00:16 00:34 00:53 WBC 14.0 H (4.8-10.8) X10*3/uL RBC 2.68 L (4.20-5.50) X10*6/uL Hgb 8.0 L (12.0-16.0) g/dl Hct 24.1 L (37.0-47.0) % MCV 89.9 (80.0-98.0) fL MCH 29.9 (27.0-33.0) pg MCHC 33.2 (31.0-35.0) g/dl RDW 14.6 (11.0-16.0) % Plt Count 255 (160-400) X10*3/uL MPV 9.5 (9.4-12.3) fL Immature Gran % (Auto) 0.5 H (0.0-0.4) % Neut % (Auto) 82.0 H (45-73) % Lymph % (Auto) 10.9 L (20-40) % Scott % (Auto) 6.3 (2-11) % Eos % (Auto) 0.1 (0-4) % Baso % (Auto) 0.2 (0-2) % Lymph # (Auto) 1.5 (1.2-4.9) X10*3/uL Scott # (Auto) 0.9 (0.1-1.2) X10*3/uL Eos # (Auto) 0.0 (0.0-0.4) X10*3/uL Baso # (Auto) 0.0 (0.0-0.2) X10*3/uL Abs Immat Gran (auto) 0.07 H (0.00-0.03) X10*3/uL Absolute Neuts (auto) 11.4 H (2.0-8.3) x10*3/uL Absolute Nucleated RBC 0.000 (0.0-0.012) X10*3/uL Nucleated RBC % (auto) 0.0 (0.0-0.2) /100WBC VBG pH 7.36 (7.32-7.43) VBG pCO2 29 mmHg VBG pO2 68 mmHg VBG HCO3 16 L (22-26) mmol/L VBG O2 Saturation 93.0 % VBG Base Excess -7.4 mmol/L Sodium 139 (135-145) mmol/L Potassium 4.8 (3.3-5.1) mmol/L Chloride 112 H (96-108) mmol/L Carbon Dioxide 16 L (22-29) mmol/L Anion Gap 16 (12-20) BUN 50 H (9-16) mg/dL Creatinine 3.92 H (0.5-1.4) mg/dL Estim Creat Clear Calc 15.7 Estimated GFR 12 Random Glucose 123 H (60-115) mg/dL Lactic Acid 1.5 (0.5-2.0) mmol/L Calcium 8.2 L D (8.4-10.2) mg/dL Troponin I High Sens 7.4 (<3.5-17.0) ng/L NT-Pro-B Natriuret Pep 94524.3 H (<300) pg/mL Influenza Type A (PCR) NEGATIVE (Negative) Influenza Type B (PCR) NEGATIVE (Negative) RSV RNA Qual (PCR) NEGATIVE (Negative) SARS-CoV-2 RNA (RT-PCR) NEGATIVE (Negative) Independent Interpretation I performed an independent interpretation of an: EKG ( sinus heart rate is 80 LA QRS QTC normal no acute ST segment elevation) and Plain X-Ray ( large pleural effusion on the left side) Radiology Impression Discussion of test interpretation with radiology: I have reviewed the radiologist's reading. Independent Historian additional history obtained through patient's family Social Determinants Patient?s care significantly limited by Social Determinants of Health including: Inadequate housing, Low income, Problems related to primary support group and Problems related to employment Critical Care Time Critical Care Time Critical Care Time: Yes Total Critical Care Time: 40 Attestation: I have personally provided 40 minutes of critical care time exclusive of time spent on separately billable procedures. Time includes review of lab data, radiology results, discussion with consultants, and monitoring for potential decompensation. Interventions were performed as documented above Discharge Plan Discharge Clinical Impression: Congestive heart failure, Pleural effusion, Renal failure Patient Disposition: Admitted As Inpatient Print Language: Malawian
[2025-05-02] MEDS: Albuterol Sulfate 2.5 MG, Albuterol/Iprat 2.5/0.5MG 3 ML 3 ML INHALE (00:26)
[2025-05-02 00:54] LABS: MANUAL DIFF FLAG NO
[2025-05-02 00:55] LABS: Venous Blood Gas Refer to POC result
[2025-05-02 00:55] LABS: Hematocrit 24.1 % (37.0-47.0); Hemoglobin 8.0 g/dl (12.0-16.0); Imm Gran Abs Auto 0.07 X10*3/uL (0.00-0.03); Imm Gran Pct Auto 0.5 % (0.0-0.4); Lymphocytes Absolute Auto 1.5 X10*3/uL (1.2-4.9); Mean Corpuscular HGB Conc 33.2 g/dl (31.0-35.0); Mean Corpuscular Hemoglobin 29.9 pg (27.0-33.0); Mean Corpuscular Volume 89.9 fL (80.0-98.0); NRBC Abs Auto 0.000 X10*3/uL (0.0-0.012); NRBC Pct Auto 0.0 /100WBC (0.0-0.2); Platelet Count 255 X10*3/uL (160-400); Red Blood Count 2.68 X10*6/uL (4.20-5.50); White Blood Count 14.0 X10*3/uL (4.8-10.8)
[2025-05-02 00:57] LABS: VBG HCO3 16 mmol/L (22-26); VBG O2 % Saturation 93.0 %
[2025-05-02 01:00] LABS: Resp Syncy Virus RNA Qual PCR NEGATIVE (Negative); SARS COV2 PCR INHOUSE NEGATIVE (Negative)
--- OUTSIDE RECORDS SUMMARY | 2025-05-02 01:07 | XMS_ITS | Encounter Summary ---
Author Organization [facility] Address [address] [place] [address] Care Team Providers Care It Teacher Name Role Phone Eliza Polo NIX Primary Care Provider +1- [phone] Encounter Details Date Type Department Care Team (Late st Contact Info) Description 08/09/2024 Lab Requisition [facility] - Main Lab 299 [facility] [place] [phone] Lazaro Santoyo MD [address] [place] [address] Essential (primary) hypertension Social History Tobacco Use Types Packs/Day Years Used Date Smoking Tobacco: Every Day Cigarettes 2 31 Started: 1994 Smokeless Tobacco: Never Alcohol Use Standard Drinks/Week Comments Never 0 (1 standard drink = 0.6 oz pur e alcohol) Comments Unknown Sex and Gender Information Value Date Recorded Sex Assigned at Female 09/02/2024 12:34 PM EDT Legal Sex Female 5:29 AM EST Gender Identity Female 09/02/2024 12:34 PM EDT Sexual Orientation Straight 09/02/2024 12 :34 PM EDT documented as of this encounter Plan of Treatment Not on [...] STS ST LTG General No Ene Moffett, BIOPHYSICS SCIENTIST Note: Pt will improve cognitive linguistic function to participate and communicate in basic ADLs supervision ST STGs General No Ene Moffett, BIOPHYSICS SCIENTIST Note: Pt will participate with development of [...] Procedure Name Priority Date/Time Associated Diagnosis Comments COMPLETE BLOOD COUNT Routine 08/09/2024 6:52 AM EDT Essential (primary) hypertension BASIC METABOLIC PANEL Routine 08/09/2024 6:52 AM EDT Essential (primary) hypertension documented in this encounter Results * (ABNORMAL) Basic metabolic panel (08/09/2024 6:52 AM EDT) Sodium 134 133 - 145 mmol/L LAB CHEMISTRY METHOD 08/09/2024 12:10 PM [facility] Potassium 3.4(L) 3.5 - 5.5 mmol/L LAB CHEMISTRY METHOD 08/09/2024 12:10 PM [facility] Chloride 103 96 - 110 mmol/L LAB CHEMISTRY METHOD 08/09/2024 12:10 PM [facility] CO2 23 21 - 32 mmol/L LAB CHEMISTRY METHOD 08/09/2024 12:10 PM [facility] Anion Gap 8 3 - 11 LAB CHEMISTRY METHOD 08/09/2024 12:10 PM [facility] Glucose 74 70 - 100 mg/dL LAB CHEMISTRY METHOD 08/09/2024 12:10 PM [facility] BUN 23 5 - 25 mg/dL LAB CHEMISTRY METHOD 08/09/2024 12:10 PM [facility] Creatinine 1.93(H) 0.50 - 1.10 mg/dL LAB CHEMISTRY METHOD 08/09/2024 12:10 PM [facility] eGFR 29(L) >=60 mL/min/1. 73m2 LAB CHEMISTRY METHOD 08/09/2024 12:10 PM [facility] Comment:Calculation based on the Chronic Kidney Disease Epidemiology Collaboration (CKD-EPI) equation refit without adjustment for race. BUN/Creatinine Ratio 11.9 LAB CHEMISTRY METHOD 08/09/2024 12:10 PM EDT [facility] Calcium 8.1(L) 8.5 - 10.5 mg/dL LAB CHEMISTRY METHOD 08/09/2024 12:10 PM EDT [facility] Blood Venous blood specimen / Unknown Venipuncture / Unknown 08/09/2024 6:52 AM EDT 08/09/2024 11:25 AM EDT us Lazaro Santoyo MD LAB BLOOD ORDERABLES Final Resul t [facility] [address] [place] [address], * (ABNORMAL) Complete blood count (08/09/2024 6:52 AM EDT) WBC 6.6 4.8 - 10.8 K/mcL LAB HEMETOLOGY METHOD 08/09/2024 12:20 PM EDT [facility] RBC 2.80(L) 3.80 - 4.80 M/mcL LAB HEMETOLOGY METHOD 08/09/2024 12:20 PM EDT [facility] Hemoglobin 7.8(L) 11.5 - 16.0 g/dL LAB HEMETOLOGY METHOD 08/09/2024 12:20 PM [facility] Hematocrit 23.6(L) 35.0 - 47.0 % LAB HEMETOLOGY METHOD 08/09/2024 12:20 PM EDT [facility] MCV 84.6 79.0 - 98.0 FL LAB HEMETOLOGY METHOD 08/09/2024 12:20 PM EDT [facility] MCH 28.0 27.0 - 32.0 pcg LAB HEMETOLOGY METHOD 08/09/2024 12:20 PM [facility] MCHC 33.1 32.0 - 37.0 g/dL LAB HEMETOLOGY METHOD 08/09/2024 12:20 PM EDT [facility] RDW 13.5 11.0 - 15.0 % LAB HEMETOLOGY METHOD 08/09/2024 12:20 PM EDT [facility] Platelets 277 130 - 400 K/mcL LAB HEMETOLOGY METHOD 08/09/2024 12:20 PM EDT [facility] MPV 9.9 7.0 - 11.0 FL LAB HEMETOLOGY METHOD 08/09/2024 12:20 PM EDT [facility] NRBC 0.0 <1.0 % LAB HEMETOLOGY METHOD 08/09/2024 12:20 PM EDT [facility] NRBC Absolute 0.00 <0.10 K/mcL LAB HEMETOLOGY METHOD 08/09/2024 12:20 PM EDT [facility] Blood Venous blood specimen / Unknown Venipuncture / Unknown 08/09/2024 6:52 AM EDT 08/09/2024 11:25 AM EDT us Lazaro Santoyo MD LAB BLOOD ORDERABLES Final Resul t [facility] [address] [place] [address], documented in this encounter Visit Diagnoses Diagnosis Essential (primary) hypertension Unspecified essential hypertension documented in this encounter Additional Health Concerns Infection Onset Date Last Indicated Resolved Time ESBL Comment:Escherichia coli (+)ESBL urine 12/29/2024 01/31/2025 Respiratory Rule-Out 01/28/2025 01/28/2025 025 12:32 AM EDT COVID-19 Rule-Out 01/28/2025 01/28/2025 01/29/2025 12:32 AM EDT Respiratory Rule-Out 01/29/2025 01/29/20252 025 1:50 PM EDT COVID-19 Rule-Out 01/29/2025 01/29/2025 01/29/2025 1:50 PM EDT Enterovirus 01/29/2025 01/29/2025 02/22/2025 7:04 PM EDT Rhinovirus 01/29/2025 01/29/2025 02/22/2025 7:04 PM EDT Respiratory Rule-Out 04/30/2025 04/30/2025 025 3:53 PM EST COVID-19 Rule-Out 04/30/2025 04/30/2025 04/30/2025 3:53 PM EST documented as of this encounter Care Teams It Teacher Relationship Specialty Start Date End Date Polo Kay NP [address] [place] [address] PCP - General Nurse Practitioner 12/28/24 documented as of this encounter
--- OUTSIDE RECORDS SUMMARY | 2025-05-02 01:07 | XMS_ITS | Encounter Summary ---
Author Organization [facility] Address [address] [place] [address] Care Team Providers Care Construction Trades Contractor Name Role Phone Polo Kay NP Primary Care Provider [phone]- [phone] Encounter Details Date Type Department Care Team (Late st Contact Info) Description 09/02/2024 Lab Requisition [facility] - Main Lab 299 [facility] [place] [phone] Lazaro Santoyo MD [address] [place] [address] Chronic kidney disease, unspecified Social History Tobacco Use Types Packs/Day Years Used Date Smoking Tobacco: Every Day Cigarettes Started: 1994 Smokeless Tobacco: Never Alcohol Use [...] for your loved ones. For example, child daycare worker or elderly care for an older adult? [...] Date Record ed Physical Abuse Unrecognized value 09/02/2024 Verbal Abuse Unrecognized value 09/02/2024 Comments Unknown Sex and Gender Information Value Date Recorded Sex Assigned at Female 09/02/2024 12:34 PM EDT Legal Sex Female 5:29 AM EST Gender Identity Female 09/02/2024 12:34 PM EDT Sexual Orientation Straight 09/02/2024 12 :34 PM EDT documented as of this encounter Functional Status * Are you deaf or do you have serious difficulty hearing? Answer Date of Assessment Author No 08/18/2024 9:12 PM EDT Allyson Chester RN * Are you blind or do you have serious difficulty seeing, even when wearing glasses? Answer Date of Assessment Author No 08/18/2024 9:12 PM EDT Allyson Chester RN * Do you have serious difficulty walking or climbing stairs? Answer Date of Assessment Author Yes 08/18/2024 9:12 PM NICHOT Allyson Chester RN * Do you have serious difficulty dressing or bathing? Answer Date of Assessment Author No 08/18/2024 9:12 PM NICHOT Allyson Chester RN * Because of a physical, mental, or emotional condition, do you have serious difficulty doing errandsalone such as visiting the doctor? Answer Date of Assessment Author No 08/18/2024 9:12 PM EDT Allyson Chester RN * Calculated C-SSRS Risk Score (Lifetime/Recent) Answer Date of Assessment Author No Risk Indicated 09/02/2024 6:26 PM EDT Carina Mohr RN * Norman Suicide Severity Rating Scale (Screener/Recent Self-Report) Question Answer Date of Assessment Author 1. Wish to be (Past 1 Month) No 025 6:26 PM NICHOT Carina Mohr RN 2. Non-Specific Active Suici nolberto Thoughts (Past 1 Month) No 09/02/2024 6:26 PM EDT Carina Mohr RN 6. Suicidal Behavior (Lifetime) No 6:26 PM NICHOT Carina Mohr RN documented as of this encounter Mental Status * Because of a physical, mental, or emotional condition, do you have serious difficulty concentrating, remembering, or making decisions? (5 years old or older) Answer Entry Date Author No 08/18/2024 9:12 PM Allyson Morales RN documented in this encounter Plan of Treatment [...] STS ST LTG General No Ene Moffett, QUALITY AND RELIABILITY ENGINEER Note: Pt will improve cognitive linguistic function to participate and communicate in basic ADLs supervision ST STGs General No Ene Moffett, QUALITY AND RELIABILITY ENGINEER Note: Pt will participate with development of [...] semantic cues documented as of this encounter Visit Diagnoses Diagnosis Chronic kidney disease, unspecified documented in this encounter Additional Health Concerns Infection Onset Date Last Indicated Resolved Time ESBL Comment:Escherichia coli (+)ESBL urine 12/29/2024 01/31/2025 Respiratory Rule-Out 01/28/2025 01/28/20252 025 12:32 AM EDT COVID-19 Rule-Out 01/28/2025 01/28/2025 01/29/2025 12:32 AM EDT Respiratory Rule-Out 01/29/2025 01/29/20252 025 1:50 PM EDT COVID-19 Rule-Out 01/29/2025 01/29/2025 01/29/2025 1:50 PM EDT Enterovirus 01/29/2025 01/29/2025 02/22/2025 7:04 PM EDT Rhinovirus 01/29/2025 01/29/2025 02/22/2025 7:04 PM EDT Respiratory Rule-Out 04/30/2025 04/30/20252 025 3:53 PM EST COVID-19 Rule-Out 04/30/2025 04/30/2025 04/30/2025 3:53 PM EST documented as of this encounter Care Teams Construction Trades Contractor Relationship Specialty Start Date End Date Polo Kay NP [address] [place] [address] PCP - General Nurse Practitioner 12/28/24 documented as of this encounter
--- OUTSIDE RECORDS SUMMARY | 2025-05-02 01:07 | XMS_ITS | Encounter Summary ---
Author Organization [facility] Address [address] [place] [address] Care Team Providers Care Flower Cutter Name Role Phone Polo Kay NP Primary Care Provider +1- [phone] Encounter Details Date Type Department Care Team (Late st Contact Info) Description 08/15/2024 Lab Requisition [facility] - Main Lab 299 [facility] [place] [phone] Lazaro Santoyo MD [address] [place] [address] Essential (primary) hypertension Social History Tobacco Use [...] for your loved ones. For example, child and family counselor or elderly care for an older adult? [...] your living situation? Unrecognized valu e 08/19/2024 Comments Unknown Sex and Gender Information Value [...] STS ST LTG General No Ene Moffett, DIANETIC COUNSELOR Note: Pt will improve cognitive linguistic function to participate and communicate in basic ADLs supervision ST STGs General No Ene Moffett, DIANETIC COUNSELOR Note: Pt will participate with development of [...] Associated Diagnosis Comments COMPLETE BLOOD COUNT Routine 08/16/2024 7:02 AM EDT Essential (primary) hypertension BASIC METABOLIC PANEL Routine 08/16/2024 7:02 AM EDT Essential (primary) hypertension documented in this encounter Results * (ABNORMAL) Basic metabolic panel (08/16/2024 7:02 AM EDT) Sodium 136 133 - 145 mmol/L LAB CHEMISTRY METHOD 08/16/2024 10:32 AM [facility] Potassium 4.8 3.5 - 5.5 mmol/L LAB CHEMISTRY METHOD 08/16/2024 10:32 AM [facility] Chloride 105 96 - 110 mmol/L LAB CHEMISTRY METHOD 08/16/2024 10:32 AM [facility] CO2 22 21 - 32 mmol/L LAB CHEMISTRY METHOD 08/16/2024 10:32 AM [facility] Anion Gap 9 3 - 11 LAB CHEMISTRY METHOD 08/16/2024 10:32 AM [facility] Glucose 169(H) 70 - 100 mg/dL LAB CHEMISTRY METHOD 08/16/2024 10:32 AM [facility] BUN 28(H) 5 - 25 mg/dL LAB CHEMISTRY METHOD 08/16/2024 10:32 AM [facility] Creatinine 2.05(H) 0.50 - 1.10 mg/dL LAB CHEMISTRY METHOD 08/16/2024 10:32 AM [facility] eGFR 27(L) >=60 mL/min/1. 73m2 LAB CHEMISTRY METHOD 08/16/2024 10:32 AM [facility] Comment:Calculation based on the Chronic Kidney Disease Epidemiology Collaboration (CKD-EPI) equation refit without adjustment for race. BUN/Creatinine Ratio 13.7 LAB CHEMISTRY METHOD 08/16/2024 10:[address] [facility] Calcium 8.3(L) 8.5 - 10.5 mg/dL LAB CHEMISTRY METHOD 08/16/2024 10:32 AM [facility] Blood Venous blood specimen / Unknown Venipuncture / Unknown 08/16/2024 7:02 AM EDT 08/16/2024 9:39 AM EDT us Lazaro Santoyo MD LAB BLOOD ORDERABLES Final Resul t [facility] [address] [place] [address], [place] [phone] * (ABNORMAL) Complete blood count (08/16/2024 7:02 AM EDT) WBC 6.4 4.8 - 10.8 K/mcL LAB HEMETOLOGY METHOD 08/16/2024 10:28 AM [facility] RBC 2.60(L) 3.80 - 4.80 M/mcL LAB HEMETOLOGY METHOD 08/16/2024 10:28 AM [facility] Hemoglobin 7.3(L) 11.5 - 16.0 g/dL LAB HEMETOLOGY METHOD 08/16/2024 10:28 AM [facility] Hematocrit 23.1(L) 35.0 - 47.0 % LAB HEMETOLOGY METHOD 08/16/2024 10:28 AM [facility] MCV 87.5 79.0 - 98.0 FL LAB HEMETOLOGY METHOD 08/16/2024 10:28 AM [facility] MCH 27.7 27.0 - 32.0 pcg LAB HEMETOLOGY METHOD 08/16/2024 10:28 AM [facility] MCHC 31.6(L) 32.0 - 37.0 g/dL LAB HEMETOLOGY METHOD 08/16/2024 10:[address] [facility] RDW 14.3 11.0 - 15.0 % LAB HEMETOLOGY METHOD 08/16/2024 10:[address] [facility] Platelets 301 130 - 400 K/mcL LAB HEMETOLOGY METHOD 08/16/2024 10:[address] [facility] MPV 9.9 7.0 - 11.0 FL LAB HEMETOLOGY METHOD 08/16/2024 10:[address] [facility] NRBC 0.0 <1.0 % LAB HEMETOLOGY METHOD 08/16/2024 10:[address] [facility] NRBC Absolute 0.00 <0.10 K/mcL LAB HEMETOLOGY METHOD 08/16/2024 10:[address] [facility] Blood Venous blood specimen / Unknown Venipuncture / Unknown 08/16/2024 7:02 AM EDT 08/16/2024 9:30 AM EDT us Lazaro Santoyo MD LAB BLOOD ORDERABLES Final Resul t [facility] [address] [place] [address], documented in this encounter Visit Diagnoses Diagnosis Essential (primary) hypertension Unspecified essential hypertension documented in this encounter Additional Health Concerns Infection Onset Date Last Indicated Resolved Time ESBL Comment:Escherichia coli (+)ESBL urine 12/29/2024 01/31/2025 Respiratory Rule-Out 01/28/2025 01/28/2025 025 12:32 AM EDT COVID-19 Rule-Out 01/28/2025 01/28/2025 01/29/2025 12:32 AM EDT Respiratory Rule-Out 01/29/2025 01/29/2025 025 1:50 PM EDT COVID-19 Rule-Out 01/29/2025 01/29/2025 01/29/2025 1:50 PM EDT Enterovirus 01/29/2025 01/29/2025 02/22/2025 7:04 PM EDT Rhinovirus 01/29/2025 01/29/2025 02/22/2025 7:04 PM EDT Respiratory Rule-Out 04/30/2025 04/30/2025 025 3:53 PM EST COVID-19 Rule-Out 04/30/2025 04/30/2025 04/30/2025 3:53 PM EST documented as of this encounter Care Teams Flower Cutter Relationship Specialty Start Date End Date Polo Kay NP [facility] [place] [address] PCP - General Nurse Practitioner 12/28/24 documented as of this encounter
--- OUTSIDE RECORDS SUMMARY | 2025-05-02 01:07 | XMS_ITS | Encounter Summary ---
Author Organization [facility] Address [address] [place] [address] Care Team Providers Care Medical Psychotherapist Name Role Phone Polo Kay NP Primary Care Provider +1- [phone] Encounter Details Date Type Department Care Team (Late st Contact Info) Description 09/08/2024 Lab Requisition [facility] - Main Lab 299 [facility] [place] [phone] Lazaro Santoyo MD [address] [place] [address] Anemia, unspecified Social History Tobacco Use Types Packs/Day [...] your loved ones. For example, child care assistant or elderly care for an older adult? [...] of Assessment Author Yes 08/18/2024 9:12 PM EDT Allyson Chester RN * Do you have serious difficulty dressing or bathing? Answer Date of Assessment Author No 08/18/2024 9:12 PM EDT Allyson Chester RN * Because of a physical, mental, or emotional condition, do you have serious difficulty doing errandsalone such as visiting the doctor? Answer Date of Assessment Author No 08/18/2024 9:12 PM EDT Allyson Chester RN documented as of this encounter Mental [...] STS ST LTG General No Ene Moffett, OCCUPATIONAL HEALTH NURSE Note: Pt will improve cognitive linguistic function to participate and communicate in basic ADLs supervision ST STGs General No Ene Moffett, OCCUPATIONAL HEALTH NURSE Note: Pt will participate with development of [...] Procedure Name Priority Date/Time Associated Diagnosis Comments CBC WITH AUTO DIFFERENTIAL Routine 09/08/2024 7:53 AM EDT Anemia, unspecified CBC AND DIFFERENTIAL Routine 09/08/2024 7:53 AM EDT Anemia, unspecified VALPROIC ACID LEVEL, TOTAL Routine 09/08/2024 7:53 AM EDT Anemia, unspecified COMPREHENSIVE METABOLIC PANEL Routine 09/08/2024 7:53 AM EDT Anemia, unspecified documented in this encounter Results * (ABNORMAL) CBC auto differential (09/08/2024 7:53 AM EDT) [facility] WBC 7.3 4.8 - 10.8 K/mcL LAB HEMETOLOGY METHOD 09/08/2024 10:54 AM [facility] RBC 2.90(L) 3.80 - 4.80 M/mcL LAB HEMETOLOGY METHOD 09/08/2024 10:54 AM [facility] Hemoglobin 8.3(L) 11.5 - 16.0 g/dL LAB HEMETOLOGY METHOD 09/08/2024 10:54 AM [facility] Hematocrit 26.2(L) 35.0 - 47.0 % LAB HEMETOLOGY METHOD 09/08/2024 10:54 AM [facility] MCV 90.3 79.0 - 98.0 FL LAB HEMETOLOGY METHOD 09/08/2024 10:54 AM [facility] MCH 28.6 27.0 - 32.0 pcg LAB HEMETOLOGY METHOD 09/08/2024 10:54 AM [facility] MCHC 31.7(L) 32.0 - 37.0 g/dL LAB HEMETOLOGY METHOD 09/08/2024 10:54 AM [facility] RDW 14.9 11.0 - 15.0 % LAB HEMETOLOGY METHOD 09/08/2024 10:54 AM [facility] Platelets 185 130 - 400 K/mcL LAB HEMETOLOGY METHOD 09/08/2024 10:54 AM [facility] MPV 9.9 7.0 - 11.0 FL LAB HEMETOLOGY METHOD 09/08/2024 10:54 AM [facility] NRBC 0.0 <1.0 % LAB HEMETOLOGY METHOD 09/08/2024 10:54 AM [facility] NRBC Absolute 0.00 <0.10 K/mcL LAB HEMETOLOGY METHOD 09/08/2024 10:54 AM [facility] Neutrophils Relative 61.3 % LAB HEMETOLOGY METHOD 09/08/2024 10:54 AM [facility] Lymphocytes Relative 20.9 % LAB HEMETOLOGY METHOD 09/08/2024 10:54 AM [facility] Monocytes Relative 11.2 % LAB HEMETOLOGY METHOD 09/08/2024 10:54 AM [facility] Eosinophils Relative 5.0 % LAB HEMETOLOGY METHOD 09/08/2024 10:54 AM [facility] Basophils Relative 0.4 % LAB HEMETOLOGY METHOD 09/08/2024 10:54 AM [facility] Immature Granulocytes Relative 1.2 % LAB HEMETOLOGY METHOD 09/08/2024 10:54 AM [facility] Neutrophils Absolute 4.49 1.50 - 7.00 K/mcL LAB HEMETOLOGY METHOD 09/08/2024 10:54 AM [facility] Lymphocytes Absolute 1.53 1.00 - 5.00 K/mcL LAB HEMETOLOGY METHOD 09/08/2024 10:54 AM [facility] Monocytes Absolute 0.82 0.20 - 1.00 K/mcL LAB HEMETOLOGY METHOD 09/08/2024 10:54 AM [facility] Eosinophils Absolute 0.37 0.00 - 0.50 K/mcL LAB HEMETOLOGY METHOD 09/08/2024 10:54 AM [facility] Basophils Absolute 0.03 0.00 - 0.20 K/mcL LAB HEMETOLOGY METHOD 09/08/2024 10:54 AM [facility] Immature Granulocytes Absolute 0.09(H) 0.00 - 0.03 K/mcL LAB HEMETOLOGY METHOD 09/08/2024 10:54 AM [facility] Blood Venous blood specimen / Unknown Venipuncture / Unknown 09/08/2024 7:53 AM EDT 09/08/2024 10:07 AM EDT us Lazaro Santoyo MD LAB BLOOD ORDERABLES Final Resul t Performing Organization Address [facility]/ZIP Co de Phone Number [facility] [address] [place] [address], [place] [phone] * Valproic acid level, total (09/08/2024 7:53 AM EDT) Pathologist [facility] Valproic Acid, Total 66 50 - 100 mcg/mL LAB CHEMISTRY METHOD 09/08/2024 12:[address] [facility] Blood Venous blood specimen / Unknown Venipuncture / Unknown 09/08/2024 7:53 AM EDT 09/08/2024 10:07 AM EDT us Lazaro Santoyo MD LAB BLOOD ORDERABLES Final Resul t Performing Organization Address [facility]/ZIP Co de Phone Number [facility] [address] [place] [address], [place] [phone] * (ABNORMAL) Comprehensive metabolic panel (09/08/2024 7:53 AM EDT) Sodium 133 133 - 145 mmol/L LAB CHEMISTRY METHOD 09/08/2024 12:[address] [facility] Potassium 5.0 3.5 - 5.5 mmol/L LAB CHEMISTRY METHOD 09/08/2024 12:[address] [facility] Chloride 105 96 - 110 mmol/L LAB CHEMISTRY METHOD 09/08/2024 12:[address] [facility] CO2 21 21 - 32 mmol/L LAB CHEMISTRY METHOD 09/08/2024 12:[address] [facility] Anion Gap 7 3 - 11 LAB CHEMISTRY METHOD 09/08/2024 12:00 PM [facility] Glucose 97 70 - 100 mg/dL LAB CHEMISTRY METHOD 09/08/2024 12:00 PM [facility] BUN 56(H) 5 - 25 mg/dL LAB CHEMISTRY METHOD 09/08/2024 12:00 PM [facility] Creatinine 3.27(H) 0.50 - 1.10 mg/dL LAB CHEMISTRY METHOD 09/08/2024 12:00 PM [facility] eGFR 16(L) >=60 mL/min/1. 73m2 LAB CHEMISTRY METHOD 09/08/2024 12:00 PM [facility] Comment:Calculation based on the Chronic Kidney Disease Epidemiology Collaboration (CKD-EPI) equation refit without adjustment for race. BUN/Creatinine Ratio 17.1 LAB CHEMISTRY METHOD 09/08/2024 12:00 PM [facility] Calcium 8.4(L) 8.5 - 10.5 mg/dL LAB CHEMISTRY METHOD 09/08/2024 12:00 PM [facility] AST (SGOT) 12 10 - 42 unit/L LAB CHEMISTRY METHOD 09/08/2024 12:00 [facility] ALT (SGPT) 14 10 - 60 unit/L LAB CHEMISTRY METHOD 09/08/2024 12:00 PM [facility] Alkaline Phosphatase 86 42 - 121 unit/L LAB CHEMISTRY METHOD 09/08/2024 12:00 PM [facility] Total Protein 5.3(L) 6.0 - 8.0 g/dL LAB CHEMISTRY METHOD 09/08/2024 12:00 PM [facility] Albumin 2.4(L) 3.2 - 5.0 g/dL LAB CHEMISTRY METHOD 09/08/2024 12:00 PM [facility] Total Bilirubin 0.3 0.0 - 1.4 mg/dL LAB CHEMISTRY METHOD 09/08/2024 12:[address] [facility] Blood Venous blood specimen / Unknown Venipuncture / Unknown 09/08/2024 7:53 AM EDT 09/08/2024 10:07 AM EDT us Lazaro Santoyo MD LAB BLOOD ORDERABLES Final Resul t [facility] [address] [place] [address], documented in this encounter Visit Diagnoses Diagnosis Anemia, unspecified documented in this encounter Additional Health [...] 02/22/2025 7:04 PM EDT Respiratory Rule-Out 04/30/2025 04/30/202504/30/2 025 3:53 PM EST COVID-19 Rule-Out 04/30/2025 04/30/2025 04/30/2025 3:53 PM EST documented as of this encounter Care Teams Medical Psychotherapist Relationship Specialty Start Date End Date Polo Kay NP [address] [place] [address] PCP - General Nurse Practitioner 12/28/24 documented as of this encounter
--- OUTSIDE RECORDS SUMMARY | 2025-05-02 01:07 | XMS_ITS | Encounter Summary ---
Author Organization [facility] Address [address] [place] [address] Care Team Providers Care Bottom Scrubber Name Role Phone Eliza Polo NIX Primary Care Provider +1- [phone] Encounter Details Date Type Department Care Team (Late st Contact Info) Description 09/01/2024 Lab Requisition [facility] - Main Lab [address] [place] [phone] Lazaro Santoyo MD [address] [place] [address] Chronic kidney disease, unspecified; Essential (primary) hypertension; Type 2 diabetes mellitus without complications (CMS/HCC V24, CMS/HCC V28) Social History Tobacco Use Types Packs/Day Years [...] care for your loved ones. For example, childcare center director or elderly care for an older adult? [...] of Assessment Author Yes 08/18/2024 9:12 PM Allyson Morales RN * Do you have serious difficulty dressing or bathing? Answer Date of Assessment Author No 08/18/2024 9:12 PM Allyson Morales RN * Because of a physical, mental, or emotional condition, do you have serious difficulty doing errandsalone such as visiting the doctor? Answer Date of Assessment Author No 08/18/2024 9:12 PM Allyson Morales RN * Calculated C-SSRS Risk Score (Lifetime/Recent) Answer Date of Assessment Author No Risk Indicated 09/02/2024 6:26 PM EDT Carina Mohr RN * [place] Suicide Severity Rating Scale (Screener/Recent Self-Report) Question Answer Date of Assessment Author 1. Wish to be (Past 1 Month) No 025 6:26 PM EDT Carina Mohr RN 2. Non-Specific Active Suici nolberto Thoughts (Past 1 Month) No 09/02/2024 6:26 PM NICHOT Carina Mohr RN 6. Suicidal Behavior (Lifetime) No 6:26 PM EDT Carina Mohr RN documented as of this [...] STS ST LTG General No Ene Moffett, DIESEL TECHNOLOGY INSTRUCTOR Note: Pt will improve cognitive linguistic function to participate and communicate in basic ADLs supervision ST STGs General No Ene Moffett, DIESEL TECHNOLOGY INSTRUCTOR Note: Pt will participate with development of [...] Associated Diagnosis Comments COMPLETE BLOOD COUNT Routine 09/02/2024 5:41 AM EDT Chronic kidney disease, unspecified Essential (primary) hypertension Type 2 diabetes mellitus without complications ([facility]/HCC V24, [facility]/HCC V28) HEPATIC FUNCTION PANEL Routine 09/02/2024 5:41 AM EDT Chronic kidney disease, unspecified Essential (primary) hypertension Type 2 diabetes mellitus without complications ([facility]/HCC V24, [facility]/HCC V28) BASIC METABOLIC PANEL Routine 09/02/2024 5:41 AM EDT Chronic kidney disease, unspecified Essential (primary) hypertension Type 2 diabetes mellitus without complications ([facility]/HCC V24, [facility] V28) documented in this encounter Results * (ABNORMAL) Hepatic function panel (09/02/2024 5:41 AM EDT) Total Protein 5.0(L) 6.0 - 8.0 g/dL LAB CHEMISTRY METHOD 09/02/2024 9:08 AM [facility] Albumin 2.3(L) 3.2 - 5.0 g/dL LAB CHEMISTRY METHOD 09/02/2024 9:08 AM [facility] Total Bilirubin 0.3 0.0 - 1.4 mg/dL LAB CHEMISTRY METHOD 09/02/2024 9:08 AM [facility] Bilirubin, Direct <0.1 0.0 - 0.3 mg/dL LAB CHEMISTRY METHOD 09/02/2024 9:08 AM [facility] Bilirubin, Indirect LAB CHEMISTRY METHOD 09/02/2024 9:08 AM [facility] Comment:Unable to calculate Indirect Bilirubin. ALT (SGPT) 9(L) 10 - 60 unit/L LAB CHEMISTRY METHOD 09/02/2024 9:08 AM [facility] AST (SGOT) 8(L) 10 - 42 unit/L LAB CHEMISTRY METHOD 09/02/2024 9:08 AM [facility] Alkaline Phosphatase 76 42 - 121 unit/L LAB CHEMISTRY METHOD 09/02/2024 9:08 AM [facility] Blood Venous blood specimen / Unknown Venipuncture / Unknown 09/02/2024 5:41 AM EDT 09/02/2024 8:15 AM EDT us Lazaro Santoyo MD LAB BLOOD ORDERABLES Final Resul t [facility] [address] [place] [address], [place] [phone] * (ABNORMAL) Basic metabolic panel (09/02/2024 5:41 AM EDT) Sodium 134 133 - 145 mmol/L LAB CHEMISTRY METHOD 09/02/2024 9:08 AM [facility] Potassium 5.4 3.5 - 5.5 mmol/L LAB CHEMISTRY METHOD 09/02/2024 9:08 AM [facility] Chloride 105 96 - 110 mmol/L LAB CHEMISTRY METHOD 09/02/2024 9:08 AM [facility] CO2 20(L) 21 - 32 mmol/L LAB CHEMISTRY METHOD 09/02/2024 9:08 AM [facility] Anion Gap 9 3 - 11 LAB CHEMISTRY METHOD 09/02/2024 9:08 AM [facility] Glucose 144(H) 70 - 100 mg/dL LAB CHEMISTRY METHOD 09/02/2024 9:08 AM [facility] BUN 55(H) 5 - 25 mg/dL LAB CHEMISTRY METHOD 09/02/2024 9:08 AM [facility] Creatinine 3.44(H) 0.50 - 1.10 mg/dL LAB CHEMISTRY METHOD [facility]/02[facility] eGFR 15(L) >=60 mL/min/1. 73m2 LAB CHEMISTRY METHOD 09/02/2024 9:08 AM T [facility] Comment:Calculation based on the Chronic Kidney Disease Epidemiology Collaboration (CKD-EPI) equation refit without adjustment for race. BUN/Creatinine Ratio 16.0 LAB CHEMISTRY METHOD 09/02/2024 9:08 AM [facility] Calcium 7.8(L) 8.5 - 10.5 mg/dL LAB CHEMISTRY METHOD 09/02/2024 9:08 AM [facility] Blood Venous blood specimen / Unknown Venipuncture / Unknown 09/02/2024 5:41 AM EDT 09/02/2024 8:15 AM EDT us Lazaro Santoyo MD LAB BLOOD ORDERABLES Final Resul t [facility] [address] [place] [address], [place] [phone] * (ABNORMAL) Complete blood count (09/02/2024 5:41 AM EDT) WBC 5.5 4.8 - 10.8 K/mcL LAB HEMETOLOGY METHOD 09/02/2024 8:41 AM [facility] RBC 2.30(L) 3.80 - 4.80 M/mcL LAB HEMETOLOGY METHOD 09/02/2024 8:41 AM [facility] Hemoglobin 6.6(L) 11.5 - 16.0 g/dL LAB HEMETOLOGY METHOD 09/02/2024 8:41 AM [facility] Hematocrit 20.9(L) 35.0 - 47.0 % LAB HEMETOLOGY METHOD 09/02/2024 8:41 AM [facility] MCV 89.3 79.0 - 98.0 FL LAB HEMETOLOGY METHOD 09/02/2024 8:41 AM EDT [facility] MCH 28.2 27.0 - 32.0 pcg LAB HEMETOLOGY METHOD 09/02/2024 8:41 AM EDT [facility] MCHC 31.6(L) 32.0 - 37.0 g/dL LAB HEMETOLOGY METHOD 09/02/2024 8:41 AM EDT [facility] RDW 15.6(H) 11.0 - 15.0 % LAB HEMETOLOGY METHOD 09/02/2024 8:41 AM EDT [facility] Platelets 192 130 - 400 K/mcL LAB HEMETOLOGY METHOD 09/02/2024 8:41 AM EDT [facility] MPV 10.5 7.0 - 11.0 FL LAB HEMETOLOGY METHOD 09/02/2024 8:41 AM EDT [facility] NRBC 0.0 <1.0 % LAB HEMETOLOGY METHOD 09/02/2024 8:41 AM EDT [facility] NRBC Absolute 0.00 <0.10 K/mcL LAB HEMETOLOGY METHOD 09/02/2024 8:41 AM T [facility] Blood Venous blood specimen / Unknown Venipuncture / Unknown 09/02/2024 5:41 AM EDT 09/02/2024 8:13 AM EDT us Lazaro Santoyo MD LAB BLOOD ORDERABLES Final Resul t [facility] [address] [place] [address], documented in this encounter Visit Diagnoses Diagnosis Chronic kidney disease, unspecified Essential (primary) hypertension Unspecified essential hypertension Type 2 diabetes mellitus without complications (CMS/HCC V24, CMS/HCC V28) documented in this encounter Additional Health Concerns [...] documented as of this encounter Care Teams Bottom Scrubber Relationship Specialty Start Date End Date Polo Kay NP [address] [place] [id number] PCP - General Nurse Practitioner 12/28/24 documented as of this encounter
--- OUTSIDE RECORDS SUMMARY | 2025-05-02 01:07 | XMS_ITS | Encounter Summary ---
Author Organization [facility] Address [address] [place] [address] Care Team Providers Care Bolt Cutter Name Role Phone Polo Kay NP Primary Care Provider +1- [phone] Encounter Details Date Type Department Care Team (Late st Contact Info) Description 08/27/2024 Lab Requisition [facility] - Main Lab [address] [place] [phone] Lazaro Santoyo MD [address] [place] [address] Essential (primary) hypertension; Weakness Social History Tobacco Use Types Packs/Day Years [...] care for your loved ones. For example, children's attendant or elderly care for an older adult? [...] 08/18/2024 9:12 PM Allyson Morales RN documented as of this encounter Mental [...] Recent Progress Patient-Stated? Author family goal General Elena Ward OT Note: Help pt get better as [...] STS ST LTG General No Ene Moffett, MANAGER BENCH Note: Pt will improve cognitive linguistic function to participate and communicate in basic ADLs supervision ST STGs General No Ene Moffett, MANAGER BENCH Note: Pt will participate with development of [...] Associated Diagnosis Comments COMPLETE BLOOD COUNT Routine 08/30/2024 7:03 AM EDT Essential (primary) hypertension Weakness BASIC METABOLIC PANEL Routine 08/30/2024 7:03 AM EDT Essential (primary) hypertension Weakness documented in this encounter Results * (ABNORMAL) Complete blood count (08/30/2024 7:03 AM EDT) WBC 6.7 4.8 - 10.8 K/[facility] LAB HEMETOLOGY METHOD 08/30/2024 11:08 AM EDT [facility] RBC 2.40(L) 3.80 - 4.80 M/[facility] LAB HEMETOLOGY METHOD 08/30/2024 11:08 AM [facility] Hemoglobin 6.8(L) 11.5 - 16.0 g/dL LAB HEMETOLOGY METHOD 08/30/2024 11:08 AM [facility] Hematocrit 21.7(L) 35.0 - 47.0 % LAB HEMETOLOGY METHOD 08/30/2024 11:08 AM [facility] MCV 90.0 79.0 - 98.0 FL LAB HEMETOLOGY METHOD 08/30/2024 11:08 AM [facility] MCH 28.2 27.0 - 32.0 pcg LAB HEMETOLOGY METHOD 08/30/2024 11:08 AM [facility] MCHC 31.3(L) 32.0 - 37.0 g/dL LAB HEMETOLOGY METHOD 08/30/2024 11:08 AM [facility] RDW 15.5(H) 11.0 - 15.0 % LAB HEMETOLOGY METHOD 08/30/2024 11:08 AM [facility] Platelets 198 130 - 400 K/mcL LAB HEMETOLOGY METHOD 08/30/2024 11:08 AM [facility] MPV 10.4 7.0 - 11.0 FL LAB HEMETOLOGY METHOD 08/30/2024 11:08 AM [facility] NRBC 0.0 <1.0 % LAB HEMETOLOGY METHOD 08/30/2024 11:08 AM [facility] NRBC Absolute 0.00 <0.10 K/mcL LAB HEMETOLOGY METHOD 08/30/2024 11:08 AM [facility] Blood Venous blood specimen / Unknown Venipuncture / Unknown 08/30/2024 7:03 AM EDT 08/30/2024 9:42 AM EDT us Fahim A Yarelis MD LAB BLOOD ORDERABLES Final Resul t [facility] [address] [place] [address], * (ABNORMAL) Basic metabolic panel (08/30/2024 7:03 AM EDT) Sodium 136 133 - 145 mmol/L LAB CHEMISTRY METHOD 08/30/2024 11:26 AM [facility] Potassium 5.2 3.5 - 5.5 mmol/L LAB CHEMISTRY METHOD 08/30/2024 11:26 AM [facility] Chloride 107 96 - 110 mmol/L LAB CHEMISTRY METHOD 08/30/2024 11:26 AM [facility] CO2 21 21 - 32 mmol/L LAB CHEMISTRY METHOD 08/30/2024 11:26 AM [facility] Anion Gap 8 3 - 11 LAB CHEMISTRY METHOD 08/30/2024 11:26 AM [facility] Glucose 83 70 - 100 mg/dL LAB CHEMISTRY METHOD 08/30/2024 11:26 AM [facility] BUN 41(H) 5 - 25 mg/dL LAB CHEMISTRY METHOD 08/30/2024 11:26 AM [facility] Creatinine 2.93(H) 0.50 - 1.10 mg/dL LAB CHEMISTRY METHOD 08/30/2024 11:26 AM [facility] eGFR 18(L) >=60 mL/min/1. 73m2 LAB CHEMISTRY METHOD 08/30/2024 11:26 AM [facility] Comment:Calculation based on the Chronic Kidney Disease Epidemiology Collaboration (CKD-EPI) equation refit without adjustment for race. BUN/Creatinine Ratio 14.0 LAB CHEMISTRY METHOD 08/30/2024 11:26 AM [facility] Calcium 7.8(L) 8.5 - 10.5 mg/dL LAB CHEMISTRY METHOD 08/30/2024 11:26 AM EDT [facility] Blood Venous blood specimen / Unknown Venipuncture / Unknown 08/30/2024 7:03 AM EDT 08/30/2024 9:44 AM EDT us Lazaro Santoyo MD LAB BLOOD ORDERABLES Final Resul t [facility] [address] [place] [address], documented in this encounter Visit Diagnoses Diagnosis Essential (primary) hypertension Unspecified essential hypertension Weakness Other malaise and fatigue documented in this encounter Additional Health Concerns Infection Onset Date Last Indicated Resolved Time ESBL Comment:Escherichia coli (+)ESBL urine 12/29/2024 01/31/2025 Respiratory Rule-Out 01/28/2025 01/28/20252 025 12:32 AM EDT COVID-19 Rule-Out 01/28/2025 01/28/2025 01/29/2025 12:32 AM EDT Respiratory Rule-Out 01/29/2025 01/29/202501/29/2 025 1:50 PM EDT COVID-19 Rule-Out 01/29/2025 01/29/2025 01/29/2025 1:50 PM EDT Enterovirus 01/29/2025 01/29/2025 02/22/2025 7:04 PM EDT Rhinovirus 01/29/2025 01/29/2025 02/22/2025 7:04 PM EDT Respiratory Rule-Out 04/30/2025 04/30/202504/30/2 025 3:53 PM EST COVID-19 Rule-Out 04/30/2025 04/30/2025 04/30/2025 3:53 PM EST documented as of this encounter Care Teams Bolt Cutter Relationship Specialty Start Date End Date Polo Kay NP [address] [place] [address] PCP - General Nurse Practitioner 12/28/24 documented as of this encounter
--- OUTSIDE RECORDS SUMMARY | 2025-05-02 01:07 | XMS_ITS | Encounter Summary ---
Author Organization [facility] Address [address] [place] [address] Care Team Providers Care Promotor Group Ticket Sales Name Role Phone Polo Kay NP Primary Care Provider +1- [phone] Encounter Details Date Type Department Care Team (Late st Contact Info) Description 09/20/2024 Lab Requisition [facility] - Main Lab [address] [place] [phone] Lazaro Santoyo MD [address] [place] [address] Chronic kidney disease, stage 3 unspecified (CMS/HCC V24, CMS/HCC V28) Social History Tobacco Use Types Packs/Day Years Used Date Smoking Tobacco: Former Cigarettes Smokeless Tobacco: Never Comments:Reports cessation o [...] care for your loved ones. For example, summer child caregiver or elderly care for an older adult? [...] 09/02/2024 Verbal Abuse Unrecognized value 09/02/2024 Comments No Sex and Gender Information Value [...] 08/18/2024 9:12 PM NICHOT Allyson Chester RN documented as of this [...] STS ST LTG General No Ene Moffett, RENEWABLE ENERGY PROJECT MANAGER Note: Pt will improve cognitive linguistic function to participate and communicate in basic ADLs supervision ST STGs General No Ene Moffett, RENEWABLE ENERGY PROJECT MANAGER Note: Pt will participate with development of [...] Associated Diagnosis Comments COMPLETE BLOOD COUNT Routine 09/20/2024 7:21 AM EDT Chronic kidney disease, stage 3 unspecified (CMS/HCC V24, CMS/HCC V28) BASIC METABOLIC PANEL Routine 09/20/2024 7:21 AM EDT Chronic kidney disease, stage 3 unspecified (CMS/HCC V24, CMS/HCC V28) documented in this encounter Results * (ABNORMAL) Basic metabolic panel (09/20/2024 7:21 AM EDT) Sodium 138 133 - 145 mmol/L LAB CHEMISTRY METHOD 09/20/2024 12:42 PM [facility] Potassium 4.6 3.5 - 5.5 mmol/L LAB CHEMISTRY METHOD 09/20/2024 12:42 PM [facility] Chloride 108 96 - 110 mmol/L LAB CHEMISTRY METHOD 09/20/2024 12:42 PM [facility] CO2 20(L) 21 - 32 mmol/L LAB CHEMISTRY METHOD 09/20/2024 12:42 PM [facility] Anion Gap 10 3 - 11 LAB CHEMISTRY METHOD 09/20/2024 12:42 PM [facility] Glucose 93 70 - 100 mg/dL LAB CHEMISTRY METHOD 09/20/2024 12:42 PM [facility] BUN 63(H) 5 - 25 mg/dL LAB CHEMISTRY METHOD 09/20/2024 12:42 PM [facility] Creatinine 3.19(H) 0.50 - 1.10 mg/dL LAB CHEMISTRY METHOD 09/20/2024 12:42 PM [facility] eGFR 16(L) >=60 mL/min/1. 73m2 LAB CHEMISTRY METHOD 09/20/2024 12:42 PM [facility] Comment:Calculation based on the Chronic Kidney Disease Epidemiology Collaboration (CKD-EPI) equation refit without adjustment for race. BUN/Creatinine Ratio 19.7 LAB CHEMISTRY METHOD 09/20/2024 12:42 PM [facility] Calcium 8.4(L) 8.5 - 10.5 mg/dL LAB CHEMISTRY METHOD 09/20/2024 12:42 PM [facility] Blood Venous blood specimen / Unknown Venipuncture / Unknown 09/20/2024 7:21 AM EDT 09/20/2024 11:00 AM EDT Lazaro Santoyo MD LAB BLOOD ORDERABLES Final Resul t [facility] [address] [place] [address], * (ABNORMAL) Complete blood count (09/20/2024 7:21 AM EDT) WBC 10.0 4.8 - 10.8 K/mcL LAB HEMETOLOGY METHOD 09/20/2024 11:29 AM EDT [facility] RBC 2.60(L) 3.80 - 4.80 M/mcL LAB HEMETOLOGY METHOD 09/20/2024 11:29 AM EDT [facility] Hemoglobin 7.5(L) 11.5 - 16.0 g/dL LAB HEMETOLOGY METHOD 09/20/2024 11:29 AM [facility] Hematocrit 23.8(L) 35.0 - 47.0 % LAB HEMETOLOGY METHOD 09/20/2024 11[facility] MCV 91.5 79.0 - 98.0 FL LAB HEMETOLOGY METHOD 09/20/2024 11:29 [facility] MCH 28.8 27.0 - 32.0 pcg LAB HEMETOLOGY METHOD 09/20/2024 11:29 AM [facility] MCHC 31.5(L) 32.0 - 37.0 g/dL LAB HEMETOLOGY METHOD 09/20/2024 11:29 AM [facility] RDW 15.9(H) 11.0 - 15.0 % LAB HEMETOLOGY METHOD 09/20/2024 11:29 [facility] Platelets 167 130 - 400 K/mcL LAB HEMETOLOGY METHOD 09/20/2024 11:29 AM [facility] MPV 10.1 7.0 - 11.0 FL LAB HEMETOLOGY METHOD 09/20/2024 11:29 AM EDT [facility] NRBC 0.0 <1.0 % LAB HEMETOLOGY METHOD 09/20/2024 11:29 AM EDT [facility] NRBC Absolute 0.00 <0.10 K/mcL LAB HEMETOLOGY METHOD 09/20/2024 11:29 AM EDT [facility] Blood Venous blood specimen / Unknown Venipuncture / Unknown 09/20/2024 7:21 AM EDT 09/20/2024 11:00 AM EDT us Lazaro Santoyo MD LAB BLOOD ORDERABLES Final Resul t [facility] [address] [place] [address], documented in this encounter Visit Diagnoses Diagnosis Chronic kidney disease, stage 3 unspecified (CMS/[facility] V24, CMS/[facility] V28) documented in this encounter Additional Health [...] documented as of this encounter Care Teams [employer] Ticket Sales Relationship Specialty Start Date End Date Polo Kay NP [address] [place] [address] PCP - General Nurse Practitioner 12/28/24 documented as of this encounter
--- OUTSIDE RECORDS SUMMARY | 2025-05-02 01:07 | XMS_ITS | Encounter Summary ---
Author Organization [facility] Address [address] [place] [address] Care Team Providers Care Manager Planning Name Role Phone Polo Kay NP Primary Care Provider [phone]- [phone] Encounter Details Date Type Department Care Team (Late st Contact Info) Description 09/13/2024 Lab Requisition [facility] - Main Lab [address] [facility] [place] [phone] Lazaro Santoyo MD [address] [place] [address] Other malaise Social History Tobacco Use Types Packs/Day Years [...] care for your loved ones. For example, maternal child nurse or elderly care for an older adult? [...] STS [facility] General No Ene Moffett, GEARCASE ASSEMBLER Note: Pt will improve cognitive linguistic function to participate and communicate in basic ADLs supervision ST STGs General No Ene Moffett, GEARCASE ASSEMBLER Note: Pt will participate with development of [...] Diagnosis Comments CBC WITH AUTO DIFFERENTIAL Routine 09/13/2024 7:13 AM EDT Other malaise CBC AND DIFFERENTIAL Routine 09/13/2024 7:13 AM EDT Other malaise BASIC METABOLIC PANEL Routine 09/13/2024 7:13 AM EDT Other malaise documented in this encounter Results * (ABNORMAL) CBC auto differential (09/13/2024 7:13 AM EDT) WBC 6.0 4.8 - 10.8 K/[facility] 09/13/2024 11:07 AM [facility] RBC 3.10(L) 3.80 - 4.80 M/mcL LAB HEMETOLOGY METHOD 09/13/2024 11:07 AM [facility] LAB Hemoglobin 9.0(L) 11.5 - 16.0 g/dL LAB HEMETOLOGY METHOD 09/13/2024 11:07 AM [facility] LAB Hematocrit 28.2(L) 35.0 - 47.0 % LAB HEMETOLOGY METHOD 09/13/2024 11:07 AM [facility] LAB MCV 91.0 79.0 - 98.0 FL LAB HEMETOLOGY METHOD 09/13/2024 11:07 AM [facility] LAB MCH 29.0 27.0 - 32.0 pcg LAB HEMETOLOGY METHOD 09/13/2024 11:07 AM [facility] LAB MCHC 31.9(L) 32.0 - 37.0 g/dL LAB HEMETOLOGY METHOD 09/13/2024 11:07 AM [facility] LAB RDW 15.7(H) 11.0 - 15.0 % LAB HEMETOLOGY METHOD 09/13/2024 11:07 AM [facility] LAB Platelets 192 130 - 400 K/mcL LAB HEMETOLOGY METHOD 09/13/2024 11:07 AM [facility] LAB MPV 9.6 7.0 - 11.0 FL LAB HEMETOLOGY METHOD 09/13/2024 11:07 AM [facility] LAB NRBC 0.0 <1.0 % LAB HEMETOLOGY METHOD 09/13/2024 11:07 AM [facility] LAB NRBC Absolute 0.00 <0.10 K/mcL LAB HEMETOLOGY METHOD 09/13/2024 11:07 AM [facility] LAB Neutrophils Relative 64.4 % LAB HEMETOLOGY METHOD 09/13/2024 11:07 AM [facility] LAB Lymphocytes Relative 19.0 % LAB HEMETOLOGY METHOD 09/13/2024 11:07 AM [facility] LAB Monocytes Relative 11.8 % LAB HEMETOLOGY METHOD 09/13/2024 11:07 AM [facility] LAB Eosinophils Relative 3.3 % LAB HEMETOLOGY METHOD 09/13/2024 11:07 AM [facility] LAB Basophils Relative 0.7 % LAB HEMETOLOGY METHOD 09/13/2024 11:07 AM [facility] LAB Immature Granulocytes Relative 0.8 % LAB HEMETOLOGY METHOD 09/13/2024 11:07 AM [facility] LAB Neutrophils Absolute 3.87 1.50 - 7.00 K/mcL LAB HEMETOLOGY METHOD 09/13/2024 11:07 AM [facility] LAB Lymphocytes Absolute 1.14 1.00 - 5.00 K/mcL LAB HEMETOLOGY METHOD 09/13/2024 11:07 AM [facility] Monocytes Absolute 0.71 0.20 - 1.00 K/mcL LAB HEMETOLOGY METHOD 09/13/2024 11:07 AM [facility] LAB Eosinophils Absolute 0.20 0.00 - 0.50 K/mcL LAB HEMETOLOGY METHOD 09/13/2024 11:07 AM [facility] LAB Basophils Absolute 0.04 0.00 - 0.20 K/mcL LAB HEMETOLOGY METHOD 09/13/2024 11:07 AM [facility] LAB Immature Granulocytes Absolute 0.05(H) 0.00 - 0.03 K/mcL LAB HEMETOLOGY METHOD 09/13/2024 11:07 AM [facility] Blood Venous blood specimen / Unknown Venipuncture / Unknown 09/13/2024 7:13 AM EDT 09/13/2024 10:18 AM EDT us Lazaro Santoyo MD LAB BLOOD ORDERABLES Final Resul t [facility] [address] [place] [address], [place] [phone] * (ABNORMAL) Basic metabolic panel (09/13/2024 7:13 AM EDT) Sodium 140 133 - 145 mmol/L LAB CHEMISTRY METHOD 09/13/2024 2:31 PM EDT [facility] LAB Potassium 4.5 3.5 - 5.5 mmol/L LAB CHEMISTRY METHOD 09/13/2024 2:31 PM [facility] Chloride 107 96 - 110 mmol/L LAB CHEMISTRY METHOD 09/13/2024 2:31 PM [facility] CO2 24 21 - 32 mmol/L LAB CHEMISTRY METHOD 09/13/2024 2:31 PM [facility] Anion Gap 9 3 - 11 LAB CHEMISTRY METHOD 09/13/2024 2:31 PM [facility] Glucose 147(H) 70 - 100 mg/dL LAB CHEMISTRY METHOD 09/13/2024 2:31 PM [facility] BUN 53(H) 5 - 25 mg/dL LAB CHEMISTRY METHOD 09/13/2024 2:31 PM [facility] Creatinine 3.62(H) 0.50 - 1.10 mg/dL LAB CHEMISTRY METHOD 09/13/2024 2:31 PM [facility] LAB eGFR 14(L) >=60 mL/min/1. 73m2 LAB CHEMISTRY METHOD 09/13/2024 2:31 PM [facility] LAB Comment:Calculation based on the Chronic Kidney Disease Epidemiology Collaboration (CKD-EPI) equation refit without adjustment for race. BUN/Creatinine Ratio 14.6 LAB CHEMISTRY METHOD 09/13/2024 2:31 PM EDT [facility] LAB Calcium 8.1(L) 8.5 - 10.5 mg/dL LAB CHEMISTRY METHOD 09/13/2024 2:31 PM EDT [facility] LAB Blood Venous blood specimen / Unknown Venipuncture / Unknown 09/13/2024 7:13 AM EDT 09/13/2024 10:18 AM EDT us Lazaro Santoyo MD LAB BLOOD ORDERABLES Final Resul t [facility] [address] [place] [address], documented in this encounter Visit Diagnoses Diagnosis Other malaise documented in this encounter Additional Health Concerns [...] documented as of this encounter Care Teams Manager Planning Relationship Specialty Start Date End Date Polo Kay NP [address] [place] [address] PCP - General Nurse Practitioner 12/28/24 documented as of this encounter
--- OUTSIDE RECORDS SUMMARY | 2025-05-02 01:07 | XMS_ITS | Encounter Summary ---
Author Organization [facility] Address [address] [place] [address] Care Team Providers Care Cattle Shipper Name Role Phone Polo Kay NP Primary Care Provider [phone]- [phone] Encounter Details Date Type Department Care Team (Late st Contact Info) Description 08/21/2024 Lab Requisition [facility] - Main Lab [address] [facility] [place] [phone] Lazaro Santoyo MD [address] [place] [address] Essential (primary) hypertension Social History Tobacco Use [...] care for your loved ones. For example, attendant child activity or elderly care for an older adult? [...] Progress Patient-Stated? Author family goal General Elena Ward, OT Note: Help pt get better as [...] STS ST [facility] General No Ene Moffett, RESOURCE PROTECTION SPECIALIST Note: Pt will improve cognitive linguistic function to participate and communicate in basic ADLs supervision ST STGs General No Ene Moffett, RESOURCE PROTECTION SPECIALIST Note: Pt will participate with development of [...] as of this encounter Visit Diagnoses Diagnosis Essential (primary) [...] documented as of this encounter Care Teams Cattle Shipper Relationship Specialty Start Date End Date Polo Kay NP [address] [place] [address] PCP - General Nurse Practitioner 12/28/24 documented as of this encounter
--- OUTSIDE RECORDS SUMMARY | 2025-05-02 01:07 | XMS_ITS | Data Portability ---
Author Organization [facility], [facility] Address [address] [place] [address] Care Team Providers Care Digital Strategist Senior Manager Name Role Phone RIZWANA BARRERA Primary Care Provider Assessment Encounter Date Assessment Date Assessment LastModified by Organization Details LastModified Time 10/16/2023 10/16/2023 Patient seen under general supervision of Dr. Aceves who was available but who did not see the patient. Preoperative diagnosis: Right thumb flexor tenosynovitis Surgery: Right thumb flexor tenosynovectomy Surgeon: Dr. Dante Aceves HPI: 58-year-old diabetic female with history of trigger thumb on the right. Patient had received an injection in the past which was helpful, but blood sugar went up to 600 therefore unable to receive any further injections. Has had recurrence of trigger thumb on the right knee is currently locked in extension. This is bothering her over the past 3 weeks. Denies any falls or trauma. Patient is right-hand dominant. Patient this time offered possibility of surgical intervention for correction of her difficulty which she would like to proceed with. Past medical history: Diabetes, hyperlipidemia lipidemia, chronic kidney disease, hypertension, anxiety, history of CVA. Past surgical history: Cholecystectomy, no difficulty with anesthesia reported Medications: Buspirone, Calcitrol, duloxetine, vitamin D,farxiga, Lasix, insulin, labetalol, losartan, nifedipine, Seroquel, Symbicort Allergies: No known drug allergies Social history: 58-year-old female with children denies use of alcohol tobacco or drugs Review of systems: Negative for loss of consciousness, shortness of breath Physical examination: 58-year-old female no acute distress alert and oriented. Temperature 97.8 pulse 72 respirations 18 blood pressure 136/84 HEENT: Atraumatic normocephalic, pupils equal round reactive to light, extraocular movements intact, throat has no exudate or erythema, neck is supple with no lymphadenopathy Cardiac: Regular rate and rhythm Pulmonary: Clear to auscultation bilaterally Abdomen: Soft nontender, nondistended with normal active bowel sounds Examination the right hand reveals no ecchymosis or erythema or warmth. Tenderness at the A1 vladimir region appreciated. Patient is in full extension she is unable to flex such. Tenderness about course the flexor tendon appreciated. No erythema or warmth noted. Full motion remainder of digits. Patient sensate to light touch with good capillary refill. X-ray: No evidence of acute fracture or dislocation noted. No significant arthritic change about the thumb appreciated. Impression: Recurrent flexor tenosynovitis right thumb Plan: Treatment options are reviewed, role of surgical intervention reviewed. Patient wishes to proceed with such, risk, benefits and alternatives discussed; including but not limited to risk of infection, injuries to nerves or vascular structures, incomplete relief of symptoms. They wish to proceed, consent will be signed at the surgery center. Preoperative instructions provided. Follow-up scheduled after surgery. Patient wished to have the procedure performed under straight local. [facility] speech recognition gel coat sprayer software was used to create portions of this document. An attempt at proofreading has been made to minimize errors. Please call for corrections. [email or web address] Not available 10/16/2023 10:02:30 12/16/2024 12/16/2024 Nature of diagnosis discussed with patient today. At this time I do believe her biggest complaint is coming from underlying contractures of the muscle. Does have slight joint effusion and may get some benefit from an aspiration injection but in slightly guarded results. Patient accepts these risks and wishes to go forward with the injection. Did say that patient would likely benefit from a course of physical therapy. Prescription provided. Discussed role of as needed injections every 3 to 6 months call for for such at her convenience. Not available 12/16/2024 16:10:18 Plan of Treatment Reminders Order Date Submit Date Provider Last Modified By Organization Details Last Modified Time Details Appointments RECHECK 15 2024 01:00P Cyndi morejon PA-C Not available Not available Not available Lab None recorded . Referral physical therapis t referral - Left knee contract ure non-weri ght bearing ROM stretchi ng s/p stroke november 20232024 025 Not available 12/23/2024 11:20:54 physical therapis t referral - S/P Left sided CVA, LUE weakness Stretch shoulder , elbow, wrist, hand, HEP, modaliti es as appropri ate 2-3 per week, 4-6 week 2024 025 [email or web address] Not available 12/15/2024 15:58:44 Procedures None recorded . Surgeries None recorded . Imaging XR, knee, 4 or more view - room 317, L knee 4v (non-wb --left side paralyze d) 2024 025 [email or web address] [facility] Office, [address], [place], [address], 12/23/2024 11:20:54 XR, shoulder , 2 or more view - new left shoulder , room [email or web address] [facility] Office, [address], [address], [place], [address], 10/29/2024 13:04:11 XR, hand, 3 or more view - rm 119 3V of R hand [email or web address] [facility] Office, [address], [address], [place], [address], 11/03/2023 10:20:44 Medication Orders None recorded . Patient TargetsNo targets recorded. Patient InstructionsNo instructions recorded. Reason for Referral Physical Therapist Referral for Shoulder girdle weakness S/P Left sided CVA, LUE weaknessStretch shoulder, elbow, wrist, hand, HEP, modalities as appropriate2-3 per week, 4-6 week Referring Physician: Kimberly Sidhu, Orthopedic Surgery, Encounter Date: 12/15/2024 Physical Therapist Referral for Contracture of left knee joint Left knee contracturenon-weright bearing ROMstretchings/p stroke november 2023 Referring Physician: Mati Laguerre, Orthopedic Surgery, Encounter Date: 12/16/2024 Results Created Date Observation Date Name Description Value Unit Range Abnormal Flag Note LastModifiedBy Organization Detail LastModifiedTime 10/28/19 25 10/27/2024 XR, shoul jason, 2 or more view http:/ [email or web address] ?Encry pted=s hAaTro YD8dLq bEUv6g %2BXZw aYqtaq 0bqfl% 2Fg9IQ a4ajBk vP9nXo QUaueC m3YtLR Fv[address] Streettai[address] [address] AC0Kla H6EV6C kKiQtr MwF INTERFACE [facility] [address] [facility] [address], [place], [address], 10/27/2024 15:37:49 10/28/19 25 10/27/2024 XR, shoul jason, 2 or more view [email or web address] ?Encry pted=s hAaTro YD8dLq bEUv6g %2BXZw aYqtaq 0bqfl% 2Fg9IQ a4ajBk vP9nXo QUaueC m3YtLR [address]ta[address] [address] AC0Kla H6EV6C kKiQtr MwF INTERFACE [facility] [address] [facility] [facility] [address], [place], [address], 10/27/2024 15:37:51 10/28/19 25 10/27/2024 XR, shoul jason, 2 or more view [email or web address] ?Encry pted=s hAaTro YD8dLq bEUv6g %2BXZw aYqtaq 0bqfl% 2Fg9IQ a4ajBk vP9nXo QUaueC m3YtLR [address] [address] AC0Kla H6EV6C kKiQtr MwF INTERFACE [facility] [address] [facility] [address], [place], [address], 10/27/2024 15:59:26 10/28/19 25 10/27/2024 XR, shoul jason, 2 or more view [email or web address] ?Encry pted=s hAaTro YD8dLq bEUv6g %2BXZw aYqtaq 0bqfl% 2Fg9IQ a4ajBk vP9nXo QUaueC m3YtLR FvZl [facility] HZ[facility] 4m6624 AC0Kla H6EV6C kKiQtr MwF INTERFACE [facility] [address] [facility] [address], [place], [address], 10/27/2024 15:59:28 12/17/19 25 12/16/2024 XR, knee, 4 or more view [email or web address] ?Encry pted=s hAaTro YD8dLq bEUv6g %2BXZw aYqtaq 0bqfl% 2Fg9IQ a4ajBk vP9nXo QUaueC m3YtLR FvZl [facility] HZtai[facility] 0g2417 AC0Klb nmNUKq vKiQtr MwF INTERFACE [facility] [address] [place] [address], [place], [address], 12/16/2024 15:38:38 12/17/19 25 12/16/2024 XR, knee, 4 or more view http:/ [email or web address] ?Encry pted=s hAaTro YD8dLq bEUv6g %2BXZw aYqtaq 0bqfl% 2Fg9IQ a4ajBk vP9nXo QUaueC m3YtLR FvZlgJ JJ8mAn HZtai3 5r8996 AC0Klb nmNUKq vKiQtr MwF INTERFACE [facility] [address] [place] [address], [place], [address], 12/16/2024 15:38:40 Result Notes Documentation Provider Name and Address Organization Details Recorded Time Xr, Shoulder, 2 Or More View : [email or web address] Encrypted=ibBhYpcMW8pHdmC Uv6g%7YYUbmLtqxn6wbbg%2Fg 8HVx5raIbdV6kWaCLcozBh2Cq VHXhQblXDM4aCzAGemq54i186 9GM4VoaK8PE7NiZyMbrJhA Not Available [facility] 10/27/2024 15:37: 50 Xr, Shoulder, 2 Or More View : [email or web address]? Encrypted=ceBbOzyJB5pVqmD Uv6g%8DEHluIxszr6vjor%2Fg 7BCf2kyEdrM5gEkYCaknKx4Ss JREdAdxOUI9uFmRQqnm10k424 8YC0EzdQ1PE9HvXdWqrFnR Not Available [facility] 10/27/2024 15:37: 51 Xr, Shoulder, 2 Or More View : [email or web address]? Encrypted=gsPwBktBN8cKlcX Uv6g%3VNFilDpfjq0kxoa%2Fg 0LEk5pgClfC5eIzLRduzSw7Kj VTWdJhnBMC2xYtJVwqe16t838 2YZ8KpxP2YV6UdMcZhlUpJ Not Available [facility] 10/27/2024 15:59: 27 Xr, Shoulder, 2 Or More View : [email or web address]? Encrypted=ifXyOjfRL3aBrfW Uv6g%6LKWawKdcaq6vdjo%2Fg 0UYb3xnBskP6jMtMVihvVo0Qj BMMyUkvVBK5bHgCPhsy10k860 0JU0RlsC2AK3YeDcZgjEcF Not Available [facility] 10/27/2024 15:59: 28 Xr, Knee, 4 Or More View : [email or web address] Encrypted=kkXqWyrPC6bWwrR Uv6g%6UROqbNcjfy5yjcz%2Fg 9BMj2vcFotL3rDtCLomqJm2Nr VGYvYiaABH2oTrNBjzp98f880 4VR8MbfvqLVPjrEqVjhFqL Not Available [facility] 12/16/2024 15:38: 39 Xr, Knee, 4 Or More View : [email or web address] Encrypted=ulTjHcpYK3eVxlB Uv6g%1ZSKiuAscvs2upnd%2Fg 4POe4nbMtqK2iHgVZcseZe1Ra SNUdZewJBJ2rKdHNqce58i059 3BU9WoteeGDOqsXwLdaIfN Not Available [facility] 12/16/2024 15:38: 40 Problems Name Problem SNOMED Code Status Onset Date Resolution Date Notes Provider Name and Address Organization Details Recorded Time No complaints 262615527 Active Status : 'A'; Not Available [facility] 4 09:20:21 Pain of left shoulder joint 6214563486499 9109 Active 2024 MILLICENT freed [facility] 5 15:21:27 Muscle weakness of upper limb 188317908 Active 2024 MILLICENT freed [place] [facility] 5 16:17:57 Shoulder girdle weakness 026735591 Active 2024 MILLICENT freed [facility] 5 13:58:04 Problem Notes None recorded. Procedures Surgical History Date Name Laterality Status Provider Name and Address Organization Details Recorded Time 5 Sports Knee Asp & Inj completed Mati Laguerre PA-C [address] [facility] [address], [place], [address], [facility] 12/16/2024 16:09:05 5 Sports Shoulder 4&1 completed Kimberly Sidhu PA-C [address], [place], [address], [facility] 12/20/2024 15:19:19 Imaging Results None recorded. Procedure Notes None recorded. Medical Equipment None Reported. Allergies Allergen ID Allergen Name Allergen Category Reaction Reaction Severity Criticality Documentation Date Start Date Code Code System Note Provider Name and Address Organization Details Recorded Time 533531 latex environme nt,medica tion Not available Not available Not available 10/27/2024 18562 91 RxNorm MILLICENT freed, [facility] 14:47:00 Medications Name Sig Start Date Stop Date Status Note LastModified by Organization Details LastModified Time nifedipine ER 30 mg tablet,exte nded release 24 hr TAKE ONE TABLET BY MOUTH one time EACH DAY BEFORE BREAKFAST , DO not CRUSHED CHEW OR SPLIT active Not Available Not Available No t Available quetiapine 25 mg tablet TAKE ONE-HALF TABLET - ONE tablet daily NEEDED FOR ANXIETY active Not Available Not Available No t Available atorvastati n 80 mg tablet TAKE ONE TABLET BY MOUTH NIGHTLY AT BEDTIME FOR CHOLESTER OL active Not Available Not Available No t Available clonidine HCl 0.1 mg tablet TAKE ONE TABLET BY MOUTH IN THE MORNING AND ONE TABLET IN THE EVENING active Not Available Not Available No t Available nicotine 14 mg/[address] ONE PATCH ON THE SKIN ONE TIME DAILY AT THE SAME TIME active Not Available Not Available No t Available labetalol 200 mg tablet TAKE ONE TABLET BY MOUTH THREE TIMES DAILY active Not Available Not Available No t Available tizanidine 2 mg tablet TAKE ONE TABLET BY MOUTH EVERY 8 HOURS 10/27 completed Not Available Not Available Not Available clonidine 0.2 mg/[address] patch [address] ONE PATCH onto THE SKIN ONCE a WEEK FOR FOR BLOOD PRESSURE active Not Available Not Available No t Available fluconazole 150 mg tablet TAKE ONE TABLET BY MOUTH ONCE active Not Available Not Available No t Available metoprolol succinate ER 50 mg tablet,exte nded release 24 hr 10/15 completed Not Available Not Available Not Available hydralazine 25 mg tablet TAKE ONE TABLET BY MOUTH THREE TIMES DAILY FOR BLOOD PRESSURE 10/27 completed Not Available Not Available Not Available metronidazo le 500 mg tablet TAKE ONE TABLET BY MOUTH TWICE DAILY 10/27 completed Not Available Not Available Not Available amlodipine 5 mg tablet TAKE ONE TABLET BY MOUTH ONCE daily 10/27 completed Not Available Not Available Not Available acetaminoph en 500 mg tablet TAKE ONE TABLET BY MOUTH EVERY 6 HOURS NEEDED FOR PAIN active Not Available Not Available No t Available spironolact one 25 mg tablet TAKE ONE TABLET BY MOUTH ONE TIME EACH DAY active Not Available Not Available No t Available lamotrigine 25 mg tablet TAKE ONE TABLET BY MOUTH TWICE DAILY active Not Available Not Available No t Available nifedipine ER 60 mg tablet,exte nded release 24 hr TAKE ONE TABLET BY MOUTH EVERY MORNING FOR FOR BLOOD PRESSURE active Not Available Not Available No t Available linezolid 600 mg tablet TAKE ONE TABLET BY MOUTH TWICE DAILY FOR TWO DAYS active Not Available Not Available No t Available ropinirole 0.25 mg tablet TAKE ONE TABLET BY MOUTH EVERY NIGHT AT BEDTIME 10/27 completed Not Available Not Available Not Available sodium bicarbonate 650 mg tablet TAKE TWO TABLETS BY MOUTH TWICE DAILY active Not Available Not Available No t Available baclofen 10 mg tablet TAKE 0.5 TABLET BY MOUTH THREE TIMES DAILY active Not Available Not Available No t Available amlodipine 10 mg tablet TAKE ONE TABLET BY MOUTH ONE time each DAY active Not Available Not Available No t Available cephalexin 500 mg capsule TAKE ONE CAPSULE BY MOUTH FOUR TIMES DAILY FOR SEVEN DAYS 10/27 completed Not Available Not Available Not Available hydralazine 100 mg tablet TAKE ONE TABLET BY MOUTH THREE TIMES DAILY active Not Available Not Available No t Available pantoprazol e 40 mg tablet,ryan yed release TAKE ONE TABLET BY MOUTH ONCE daily active Not Available Not Available No t Available oxycodone 5 mg capsule TAKE 1 CAPSULE BY MOUTH EVERY 6 HOURS IF NEEDED FOR SEVERE PAIN. MAX DAILY AMOUNT: 20 MG active Not Available Not Available No t Available nicotine 21 mg/24 hr daily transdermal patch APPLY ONE PATCH TO UPPER TO THE ARM. USE FOR SIX WEEKS THEN START 14 MG PATCHES active Not Available Not Available No t Available gabapentin 300 mg capsule TAKE ONE CAPSULE BY MOUTH THREE TIMES DAILY 10/27 completed Not Available Not Available Not Available bumetanide 1 mg tablet TAKE ONE TABLET BY MOUTH TWICE DAILY active Not Available Not Available No t Available hydralazine 50 mg tablet TAKE ONE TABLET BY MOUTH EVERY MORNING AND ONE TABLET EVERY EVENING AND ONE TABLET AT BEDTIME active Not Available Not Available No t Available furosemide 20 mg tablet TAKE ONE TABLET BY MOUTH EVERY DAY active Not Available Not Available No t Available ergocalcife rol (vitamin D2) 1,250 mcg (50,000 unit) capsule 10/27 completed Not Available Not Available Not Available insulin lispro (U-100) 100 unit/mL subcutaneou s solution active Not Available Not Available N ot Available cefuroxime axetil 500 mg tablet TAKE ONE TABLET BY MOUTH TWICE DAILY FOR 10 DAYS 12/12 completed Not Available Not Available Not Available levofloxaci n 500 mg tablet TAKE ONE TABLET BY MOUTH ONCE DAILY FOR SIX DAYS active Not Available Not Available No t Available labetalol 100 mg tablet TAKE ONE TABLET BY MOUTH THREE TIMES DAILY FOR BLOOD PRESSURE active Not Available Not Available No t Available sodium polystyrene sulfonate 15 gram oral powder 10/15 completed Not Available Not Available Not Available losartan 100 mg tablet TAKE ONE TABLET BY MOUTH EVERY MORNING FOR blood pressure active Not Available Not Available No t Available doxycycline hyclate 100 mg tablet 10/15 completed Not Available Not Available Not Available calcitriol 0.25 mcg capsule Take 1 capsule (0.25 mcg total) by mouth 1 (one) time each day active Not Available Not Available No t Available amoxicillin 500 mg-potassiu m clavulanate 125 mg tablet TAKE ONE TABLET BY MOUTH EVERY TWELVE HOURS FOR 10 DAYS 04/25 completed Not Available Not Available Not Available nicotine 7 mg/24 hr daily transdermal patch 10/15 completed Not Available Not Available Not Available buspirone 15 mg tablet TAKE ONE TABLET BY MOUTH THREE TIMES DAILY 10/27 completed Not Available Not Available Not Available insulin lispro (U-100) 100 unit/mL subcutaneou s pen INJECT 2-14 UNITS INTO THE SKIN THREE TIMES DAILY BEFORE MEALS according TO sliding scale (max 42u/day) active Not Available Not Available No t Available nicotine (polacrilex ) 4 mg buccal lozenge DISSOLVE ONE LOZENGE BY MOUTH EVERY 1-2 HOURS NEEDED FOR TOBACCO CESSATION (MAX 12 PIECES/DA Y) active Not Available Not Available No t Available nicotine (polacrilex ) 2 mg buccal lozenge 10/15 completed Not Available Not Available Not Available nitrofurant oin monohydrate /macrocryst als 100 mg capsule take ONE CAPSULES BY MOUTH TWICE DAILY FOR SEVEN DAYS active Not Available Not Available No t Available duloxetine 30 mg capsule,del ayed release 10/15 completed Not Available Not Available Not Available duloxetine 60 mg capsule,del ayed release TAKE ONE CAPSULE BY MOUTH ONCE daily 10/27 completed Not Available Not Available Not Available BD Ultra-Fine Short Pen Needle 31 gauge x 10/01 USE TO INJECT FOUR TIMES DAILY active Not Available Not Available No t Available quetiapine 50 mg tablet TAKE ONE TABLET BY MOUTH nightly AT BEDTIME 10/27 completed Not Available Not Available Not Available Symbicort 160 mcg-4.5 mcg/actuati on HFA aerosol inhaler INHALE 1-2 PUFFS EVERY 4-6 HOURS NEEDED SHORTNESS OF BREATH active Not Available Not Available No t Available FeroSul 325 mg (65 mg iron) tablet 10/27 completed Not Available Not Available Not Available Lantus Solostar U-100 Insulin 100 unit/mL (3 mL) subcutaneou s pen INJECT 34-40 UNITS into THE SKIN NIGHTLY AT BEDTIME active Not Available Not Available No t Available OneTouch Verio test strips USE TO test BLOOD GLUCOSE FOUR TIMES DAILY active Not Available Not Available No t Available Easy Touch Alcohol Prep Pads USE TO test BLOOD GLUCOSE FOUR TIMES DAILY active Not Available Not Available No t Available Linzess 145 mcg capsule 10/15 completed Not Available Not Available Not Available Sure Comfort Pen Needle 32 gauge x 5/32 10/15 completed Not Available Not Available Not Available Farxiga 10 mg tablet TAKE ONE TABLET BY MOUTH EVERY MORNING 10/27 completed Not Available Not Available Not Available OneTouch Verio Flex Meter USE TO test blood glucose EVERY DAY active Not Available Not Available No t Available Dexcom G6 Brewery Worker 10/15 completed Not Available Not Available Not Available Dexcom G6 Transmitter device APPLY with sensor TO abdomen OR FOR BACK of TO THE ARM replace EVERY THREE MONTHS active Not Available Not Available No t Available Lokelma 10 gram oral powder packet 10/27 completed Not Available Not Available Not Available Omnipod Dash Pods (Gen 4) subcutaneou s cartridge 10/15 completed Not Available Not Available Not Available OneTouch Delica Plus Lancet 33 gauge USE TO test blood glucose EVERY DAY active Not Available Not Available No t Available Baqsimi 3 mg/actuatio n nasal spray SPRAY ONE device into one nostril NEEDED FOR SEVERE hypoglyce petra active Not Available Not Available No t Available Omnipod 5 G6 Pods (Gen 5) subcutaneou s cartridge active Not Available Not Available Not Available Omnipod 5 G6-G7 Pods (Gen 5) subcutaneou s cartridge USE TO administe r insulin continuou sly CHANGE pod EVERY TWO DAYS active Not Available Not Available No t Available Omnipod 5 (G6/Aime 2 Plus) subcutaneou s cartridge USE kit TO inject insulin into THE SKIN continuou sly, CHANGE pod EVERY THREE DAYS active Not Available Not Available No t Available FreeStyle Aime [address] ONE sensor ON BACK OF UPPER ARM EVERY 15 DAYS active Not Available Not Available No t Available Vitals Date Recorded Body height Body mass index (BMI) Body weight Heart rate Body temperature Systolic And Diastolic Provider Name and Address Organization Details Last Updated DateTime 4 175.26 cm 24.1 kg/m2 51556.5 6 g 72 /min 97.8 [degF] 136/84 mm[Hg] DONALD TAPIA [facility] 4 09:35:00 Date Recorded Body height Body mass index (BMI) Body weight Provider Name and Address Organization Details Last Updated DateTime 10/27/2024 175.26 cm 23.6 kg/m2 56003.78 g MILLICENT CALVILLO [facility] 10/27/2024 14:46:37 Date Recorded Body height Body mass index (BMI) Body weight Provider Name and Address Organization Details Last Updated DateTime 12/15/2024 175.26 cm 23.6 kg/m2 81752.78 g MILLICENT CALVILLO [facility] 12/15/2024 13:17:22 Date Recorded Body height Body mass index (BMI) Body weight Provider Name and Address Organization Details Last Updated DateTime 12/16/2024 175.26 cm 23.6 kg/m2 17611.78 g Gema Williamson [facility] 12/16/2024 15:08:30 Social History None recorded. Functional Status None recorded. Mental Status None recorded. Family History Nothing Reported. Medical History Condition Response Diabetes Y Inflammatory Joint disease Y Anemia Y Kidney/Bladder Problems Y Arthritis Y Nerve Disorders Y Headaches Y Stroke Y Hypertension Y Cholesterol Y Gynecological HistoryNo gynecological history recorded. Obstetrics History GPAL:G 0 P 0 0 0 0 Past Encounters Encounter ID Performer Location Encounter Start Date Encounter Closed Date Diagnosis/Indication Diagnosis SNOMED-CT Code Diagnosis ICD10 Code Diagnosis IMO Codes Diagnosis Note [id number] M[facility] [address] [place] [address] 10/16/2023 09:01:26 11/03/2023 10:20:44 Pain of right hand 7192873020 96462 M79.641 Trigger th umb of right hand 2773289281 80226 M65.931 [id number] Kimberly Sidhu PA-C [facility] [address] [place] [address] 10/27/2024 14:06:24 11/03/2024 11:59:49 Pain of left shoulder joint 3737649465 5170783 M25.512 653960 Muscle wea kness of upper limb 156427818 M62.81 884874 [id number] [facility] [address] [place] [address] 12/15/2024 13:10:10 12/23/2024 14:52:41 Pain of left shoulder joint 2386371662 9496919 M25.512 916427 Shoulder g irdle weakness 822354065 R29.898 [id number] Mati Laguerre PA-C [facility] [address] [place] [address] 12/16/2024 14:43:29 12/28/2024 13:43:48 Pain of left knee joint 6461551821 90620 M25.562 030819 Contractur e of left knee joint 3708944142 11014 M24.328 [id number] Health Concerns Section Related Observation LastModified by Organization Detai ls LastModified Time None Recorded Concern Status LastModified by Organization Details LastModified Time None Recorded Advance Directives Directive None Recorded Payers Insurance Date Sequence Insurance Name Policy Number Policy Ceja Covered Member ID Ceja Member ID Guarantor Name 04/28/2025 1 [facility] - DOS ON OR AFTER 2022 - MEDICARE [place]VANTAGE [place] (MEDICARE REPLACEMENT/AD VANTAGE - PPO) Kisha Alvarez [id number] Kisha Alvarez 12/16/2024 2 [place]: [facility] Kisha Alvarez [id number] Kisha Alvarez Notes Date Note Type Note Provider Name and Address Organization Details Recorded Time 10/27/2024 text/html I am seeing the patient today under the supervision of Dr. Crockett who was available but who did not see the patient. History is taken from the patient HPI: Patient here today 59-year-old female concerning left shoulder pain. She had a stroke November 2019. This left her with no use of her left upper extremity. She has had severe swelling off-and-on of her left upper extremity. Has had 2 negative ultrasounds of her left upper extremity the last being about 6 weeks ago. Seen in the ER at [facility] July 27 found to have a subluxed shoulder which is chronic on CAT scan. Presents today to our office with her family for further evaluation. Patient had numerous repetitive falls in the past year injuring herself. She is also injured her shoulder several times during that time as well. She is a diabetic. Patient has a history of a left anterior shoulder dislocation June 07 and was seen in the [facility] ED where it was reportedly reduced. Past family, medical, social history and review of systems has been reviewed, updated and is located in the patient s chart. EXAMINATION: On physical exam today she appears to have a subluxed shoulder still. She has some subtle's fullness palpable anteriorly. She has absolutely no use of her left upper extremity. Passively I can flex and extend her elbow wrist and hand. She has 2+ edema throughout her left upper extremity. Her family tells me this is her baseline. She did not tolerate forward elevation of her shoulder. She is alert oriented and otherwise appropriate. X-RAYS: Were ordered, obtained and independently reviewed today in our office. There were 4 views of the left shoulderperformed in the findings are as follows: Shows her shoulder to remain in a subluxed position however the head still does remain within the glenoid. This is best seen on axillary view. DIAGNOSIS: Chronically subluxed left shoulder #2.left stroke shoulder MEDICAL DECISION MAKING: Family inquires regarding surgical intervention today this is not shingles. We discussed also that she will remain chronically subluxed. They requested a sling for when she is being transferred and out in public places which I agreed to however she should not have the sling on at home and she needs to work chronically on her elbow wrist and hand range of motion. Many questions were answered on their behalf. She may follow-up with us as needed. Today's visit involved examining the patient, reviewing the history, reviewing the radiographic studies, counseling the patient regarding treatment options, and the administrative tasks including placing orders, preparing patient information and home handouts and preparing the visit note. This note was generated with [facility] speech recognition gel coat sprayer dictation software. Please excuse any errors that may have been overlooked during review of this note. Sometimes, these errors may affect the content or meaning of a given sentence. Please call for corrections. Kimberly Sidhu PA-C [address], [place], [address], [facility] 10/27/2024 16:22:22 12/15/2024 text/html I am seeing the patient today under the supervision of Dr. Rodriguez patient here today concerning left shoulder who was available but who did not see the patient. History is taken from the patient HPI: Pain. Complains of swelling in the region. She tells me it started 2 months ago. Patient lives with her daughter now. Hurts to elevate her arm. Patient has a history of a stroke November 26, 2023. She has a no use of her left upper extremity. She complains of increasing stiffness and pain. She is attended physical therapy but currently does not have any active therapy. She is really hoping to have her shoulder injected. Past family, medical, social history and review of systems has been reviewed, updated and is located in the patient s chart. EXAMINATION:. Patient has no use of her left upper extremity. She cannot use her hand her wrist her elbow She cannot elevate her shoulder. She cannot perform any resistive maneuvers. She has a soft brace on for her hand and wrist. She is seated comfortably in a wheelchair is alert and oriented. I can assist her shoulder to about 90 degrees of forward elevation then she starts to have substantial stiffness. 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 These x-rays were previously taken in our office at last visit. DIAGNOSIS: Stroke shoulder MEDICAL DECISION MAKING: Protracted discussion with the patient and family today regarding stroke shoulder its pathology and problem. She is adamant about having an injection and as described to her I do not think this is going to do much for her symptoms however if she really wants to try it once. Risks and benefits of this were discussed with her at length. Today's visit involved examining the patient, reviewing the history, reviewing the radiographic studies, counseling the patient regarding treatment options, and the administrative tasks including placing orders, preparing patient information and home handouts and preparing the visit note. This note was generated with [facility] speech recognition gel coat sprayer dictation software. Please excuse any errors that may have been overlooked during review of this note. Sometimes, these errors may affect the content or meaning of a given sentence. Please call for corrections. Kimberly Sidhu PA-C [address], [place], [address], [facility] 12/20/2024 15:19:23 12/16/2024 text/html I am seeing the patient today under the supervision of who was available but who did not see the patient. Patient comes in for evaluation of her left knee. Patient states that she suffered a stroke back in October and since that time has had progressing stiffness pain discomfort about the knee. The stroke did affect the entire left upper and lower extremity. Has lost a significant mount of range of motion pain diffusely about the knee. No previous injury or surgery to the knee. Mati Laguerre PA-C [address], [place], [address], [facility] 12/16/2024 16:10:22 OBGyn Episode No OBEpisode recorded.
--- OUTSIDE RECORDS SUMMARY | 2025-05-02 01:07 | XMS_ITS | Encounter Summary ---
Author Organization [facility] Address [address] [place] [address] Care Team Providers Care Yarn Rewinder Name Role Phone Polo Kay NP Primary Care Provider +1- [phone] Encounter Details Date Type Department Care Team (Late st Contact Info) Description 09/01/2024 Lab Requisition [facility] - Main Lab [address] [facility] [place] [phone] Lazaro Santoyo MD [address] [place] [address] Chronic kidney disease, unspecified Social History Tobacco [...] for your loved ones. For example, child development associate teacher or elderly care for an older adult? [...] 6:26 PM EDT Carina Mohr RN * [place] Suicide Severity Rating Scale (Screener/Recent Self-Report) Question [...] STS ST LTG General No Ene Moffett, MAIN LINE ASSEMBLER Note: Pt will improve cognitive linguistic function to participate and communicate in basic ADLs supervision ST STGs General No Ene Moffett, MAIN LINE ASSEMBLER Note: Pt will participate with development [...] Procedure Name Priority Date/Time Associated Diagnosis Comments BASIC METABOLIC PANEL Routine 09/01/2024 8:16 AM EDT Chronic kidney disease, unspecified documented in this encounter Results * (ABNORMAL) Basic metabolic panel (09/01/2024 8:16 AM EDT) Sodium 134 133 - 145 mmol/L LAB CHEMISTRY METHOD 09/01/2024 11:49 AM [facility] Potassium 5.0 3.5 - 5.5 mmol/L LAB CHEMISTRY METHOD 09/01/2024 11:49 AM [facility] Chloride 105 96 - 110 mmol/L LAB CHEMISTRY METHOD 09/01/2024 11:49 AM [facility] CO2 20(L) 21 - 32 mmol/L LAB CHEMISTRY METHOD 09/01/2024 11:49 AM [facility] Anion Gap 9 3 - 11 LAB CHEMISTRY METHOD 09/01/2024 11:49 AM [facility] Glucose 45(L) 70 - 100 mg/dL LAB CHEMISTRY METHOD 09/01/2024 11:49 AM [facility] BUN 49(H) 5 - 25 mg/dL LAB CHEMISTRY METHOD 09/01/2024 11:49 AM [facility] Creatinine 3.12(H) 0.50 - 1.10 mg/dL LAB CHEMISTRY METHOD 09/01/2024 11:49 AM [facility] eGFR 16(L) >=60 mL/min/1. 73m2 LAB CHEMISTRY METHOD 09/01/2024 11:49 AM [facility] Comment:Calculation based on the Chronic Kidney Disease Epidemiology Collaboration (CKD-EPI) equation refit without adjustment for race. BUN/Creatinine Ratio 15.7 LAB CHEMISTRY METHOD 09/01/2024 11:49 AM [facility] Calcium 8.1(L) 8.5 - 10.5 mg/dL LAB CHEMISTRY METHOD 09/01/2024 11:49 AM EDT [facility] Blood Venous blood specimen / Unknown Venipuncture / Unknown 09/01/2024 8:16 AM EDT 09/01/2024 10:38 AM EDT us Lazaro Santoyo MD LAB BLOOD ORDERABLES Final Resul t [facility] [address] [place] [address], documented in this encounter Visit Diagnoses Diagnosis [...] documented as of this encounter Care Teams Yarn Rewinder Relationship Specialty Start Date End Date Polo aKy NP [address] [place] [address] PCP - General Nurse Practitioner 12/28/24 documented as of this encounter
--- OUTSIDE RECORDS SUMMARY | 2025-05-02 01:07 | XMS_ITS | Encounter Summary ---
Author Organization [facility] Address [address] [place] [address] Care Team Providers Care Inspector Insulation Name Role Phone Polo Kay NP Primary Care Provider +1- [phone] Encounter Details Date Type Department Care Team (Late st Contact Info) Description 09/14/2024 Lab Requisition [facility] - Main Lab [address] [facility] [place] [phone] Lazaro Santoyo MD [address] [place] [address] Other malaise Social History Tobacco Use Types [...] for your loved ones. For example, children's tutor nursery or elderly care for an older adult? [...] STS ST LTG General No Ene Moffett, UI ARCHITECT Note: Pt will improve cognitive linguistic function to participate and communicate in basic ADLs supervision ST STGs General No Ene Moffett, UI ARCHITECT Note: Pt will participate with development of [...] Diagnosis Comments CBC WITH AUTO DIFFERENTIAL Routine 09/15/2024 6:34 AM EDT Other malaise CBC AND DIFFERENTIAL Routine 09/15/2024 6:34 AM EDT Other malaise BASIC METABOLIC PANEL Routine 09/15/2024 6:34 AM EDT Other malaise documented in this encounter Results * (ABNORMAL) CBC auto differential (09/15/2024 6:34 AM EDT) WBC 10.0 4.8 - 10.8 K/[facility] 09/15/2024 10:09 AM [facility] RBC 2.60(L) 3.80 - 4.80 M/mcL LAB HEMETOLOGY METHOD 09/15/2024 10:09 AM [facility] Hemoglobin 7.4(L) 11.5 - 16.0 g/dL LAB HEMETOLOGY METHOD 09/15/2024 10:09 AM [facility] Hematocrit 23.3(L) 35.0 - 47.0 % LAB HEMETOLOGY METHOD 09/15/2024 10:09 AM [facility] MCV 90.0 79.0 - 98.0 FL LAB HEMETOLOGY METHOD 09/15/2024 10:09 AM [facility] MCH 28.6 27.0 - 32.0 pcg LAB HEMETOLOGY METHOD 09/15/2024 10:09 AM [facility] MCHC 31.8(L) 32.0 - 37.0 g/dL LAB HEMETOLOGY METHOD 09/15/2024 10:09 AM [facility] RDW 15.7(H) 11.0 - 15.0 % LAB HEMETOLOGY METHOD 09/15/2024 10:09 AM [facility] Platelets 164 130 - 400 K/mcL LAB HEMETOLOGY METHOD 09/15/2024 10:09 AM [facility] MPV 9.5 7.0 - 11.0 FL LAB HEMETOLOGY METHOD 09/15/2024 10:09 AM [facility] NRBC 0.0 <1.0 % LAB HEMETOLOGY METHOD 09/15/2024 10:09 AM [facility] NRBC Absolute 0.00 <0.10 K/mcL LAB HEMETOLOGY METHOD 09/15/2024 10:09 AM [facility] Neutrophils Relative 70.2 % LAB HEMETOLOGY METHOD 09/15/2024 10:09 AM [facility] Lymphocytes Relative 15.6 % LAB HEMETOLOGY METHOD 09/15/2024 10:09 AM [facility] Monocytes Relative 10.5 % LAB HEMETOLOGY METHOD 09/15/2024 10:09 AM [facility] Eosinophils Relative 2.4 % LAB HEMETOLOGY METHOD 09/15/2024 10:09 AM [facility] Basophils Relative 0.4 % LAB HEMETOLOGY METHOD 09/15/2024 10:09 AM [facility] Immature Granulocytes Relative 0.9 % LAB HEMETOLOGY METHOD 09/15/2024 10:09 AM [facility] Neutrophils Absolute 7.01(H) 1.50 - 7.00 K/mcL LAB HEMETOLOGY METHOD 09/15/2024 10:09 AM [facility] Lymphocytes Absolute 1.56 1.00 - 5.00 K/mcL LAB HEMETOLOGY METHOD 09/15/2024 10:09 AM [facility] Monocytes Absolute 1.05(H) 0.20 - 1.00 K/mcL LAB HEMETOLOGY METHOD 09/15/2024 10:09 AM [facility] Eosinophils Absolute 0.24 0.00 - 0.50 K/mcL LAB HEMETOLOGY METHOD 09/15/2024 10:09 AM [facility] Basophils Absolute 0.04 0.00 - 0.20 K/mcL LAB HEMETOLOGY METHOD 09/15/2024 10:09 AM [facility] Immature Granulocytes Absolute 0.09(H) 0.00 - 0.03 K/mcL LAB HEMETOLOGY METHOD 09/15/2024 10:09 AM [facility] Blood Venous blood specimen / Unknown Venipuncture / Unknown 09/15/2024 6:34 AM EDT 09/15/2024 9:31 AM EDT us Lazaro Santoyo MD LAB BLOOD ORDERABLES Final Resul t [facility] [address] [place] [address], * (ABNORMAL) Basic metabolic panel (09/15/2024 6:34 AM EDT) [facility] Sodium 139 133 - 145 mmol/L LAB CHEMISTRY METHOD 09/15/2024 10:36 AM [facility] Potassium 4.3 3.5 - 5.5 mmol/L LAB CHEMISTRY METHOD 09/15/2024 10:36 AM [facility] Chloride 107 96 - 110 mmol/L LAB CHEMISTRY METHOD 09/15/2024 10:36 AM [facility] CO2 20(L) 21 - 32 mmol/L LAB CHEMISTRY METHOD 09/15/2024 10:36 AM [facility] Anion Gap 12(H) 3 - 11 LAB CHEMISTRY METHOD 09/15/2024 10:36 AM [facility] Glucose 161(H) 70 - 100 mg/dL LAB CHEMISTRY METHOD 09/15/2024 10:36 AM [facility] BUN 51(H) 5 - 25 mg/dL LAB CHEMISTRY METHOD 09/15/2024 10:36 AM [facility] Creatinine 3.34(H) 0.50 - 1.10 mg/dL LAB CHEMISTRY METHOD 09/15/2024 10:36 AM [facility] eGFR 15(L) >=60 mL/min/1. 73m2 LAB CHEMISTRY METHOD 09/15/2024 10:36 AM [facility] Comment:Calculation based on the Chronic Kidney Disease Epidemiology Collaboration (CKD-EPI) equation refit without adjustment for race. BUN/Creatinine Ratio 15.3 LAB CHEMISTRY METHOD 09/15/2024 10:36 AM EDT [facility] Calcium 8.1(L) 8.5 - 10.5 mg/dL LAB CHEMISTRY METHOD 09/15/2024 10:36 AM EDT [facility] Blood Venous blood specimen / Unknown Venipuncture / Unknown 09/15/2024 6:34 AM EDT 09/15/2024 9:31 AM EDT us Lazaro Santoyo MD LAB BLOOD ORDERABLES Final Resul t [facility] [address] [place] [address], documented in this encounter Visit Diagnoses Diagnosis [...] documented as of this encounter Care Teams Inspector Insulation Relationship Specialty Start Date End Date Polo Kay NP [address] [place] [address] PCP - General Nurse Practitioner 12/28/24 documented as of this encounter
--- OUTSIDE RECORDS SUMMARY | 2025-05-02 01:07 | XMS_ITS | Encounter Summary ---
Author Organization [facility] Address [address] [place] [address] Care Team Providers Care Supervisor Channel Process Name Role Phone Polo Kay NP Primary Care Provider +1- [phone] Encounter Details Date Type Department Care Team (Late st Contact Info) Description 09/17/[address] [facility] - Main Lab [address] [facility] [place] [phone] Lazaro Santoyo MD [address] [place] [address] Chronic kidney disease, unspecified Social History Tobacco [...] for your loved ones. For example, child protective services social worker or elderly care for an older [...] ST LTG General No Ene Moffett, MANAGER TERMINAL Note: Pt will improve cognitive linguistic function to participate and communicate in basic ADLs supervision ST STGs General No Ene Moffett, MANAGER TERMINAL Note: Pt will participate with development of [...] Associated Diagnosis Comments COMPLETE BLOOD COUNT Routine 09/17/2024 6:10 AM EDT Chronic kidney disease, unspecified BASIC METABOLIC PANEL Routine 09/17/2024 6:10 AM EDT Chronic kidney disease, unspecified documented in this encounter Results * (ABNORMAL) Basic metabolic panel (09/17/2024 6:10 AM EDT) Sodium 136 133 - 145 mmol/L LAB CHEMISTRY METHOD 09/17/2024 10:09 AM EDT [facility] Potassium 5.1 3.5 - 5.5 mmol/L LAB CHEMISTRY METHOD 09/17/2024 10:09 AM [facility] Chloride 104 96 - 110 mmol/L LAB CHEMISTRY METHOD 09/17/2024 10:09 AM [facility] CO2 23 21 - 32 mmol/L LAB CHEMISTRY METHOD 09/17/2024 10:09 AM [facility] Anion Gap 9 3 - 11 LAB CHEMISTRY METHOD 09/17/2024 10:09 AM [facility] Glucose 124(H) 70 - 100 mg/dL LAB CHEMISTRY METHOD 09/17/2024 10:09 AM [facility] BUN 57(H) 5 - 25 mg/dL LAB CHEMISTRY METHOD 09/17/2024 10:09 AM [facility] Creatinine 3.47(H) 0.50 - 1.10 mg/dL LAB CHEMISTRY METHOD 09/17/2024 10:09 AM [facility] eGFR 15(L) >=60 mL/min/1. 73m2 LAB CHEMISTRY METHOD 09/17/2024 10:09 AM [facility] Comment:Calculation based on the Chronic Kidney Disease Epidemiology Collaboration (CKD-EPI) equation refit without adjustment for race. BUN/Creatinine Ratio 16.4 LAB CHEMISTRY METHOD 09/17/2024 10:09 AM [facility] Calcium 8.1(L) 8.5 - 10.5 mg/dL LAB CHEMISTRY METHOD 09/17/2024 10:09 AM [facility] Blood Venous blood specimen / Unknown Venipuncture / Unknown 09/17/2024 6:10 AM EDT 09/17/2024 8:40 AM EDT us Lazaro Santoyo MD LAB BLOOD ORDERABLES Final Resul t [facility] [address] [place] [address], [place] [phone] * (ABNORMAL) Complete blood count (09/17/2024 6:10 AM EDT) [facility] Signature WBC 7.5 4.8 - 10.8 K/mcL LAB HEMETOLOGY METHOD 09/17/2024 9:00 AM [facility] RBC 2.80(L) 3.80 - 4.80 M/mcL LAB HEMETOLOGY METHOD 09/17/2024 9:00 AM [facility] Hemoglobin 8.0(L) 11.5 - 16.0 g/dL LAB HEMETOLOGY METHOD 09/17/2024 9:00 AM [facility] Hematocrit 25.1(L) 35.0 - 47.0 % LAB HEMETOLOGY METHOD 09/17/2024 9:00 AM [facility] MCV 90.3 79.0 - 98.0 FL LAB HEMETOLOGY METHOD 09/17/2024 9:00 AM [facility] MCH 28.8 27.0 - 32.0 pcg LAB HEMETOLOGY METHOD 09/17/2024 9:00 AM [facility] MCHC 31.9(L) 32.0 - 37.0 g/dL LAB HEMETOLOGY METHOD 09/17/2024 9:00 AM [facility] RDW 15.9(H) 11.0 - 15.0 % LAB HEMETOLOGY METHOD 09/17/2024 9:00 AM [facility] Platelets 167 130 - 400 K/mcL LAB HEMETOLOGY METHOD 09/17/2024 9:00 AM [facility] MPV 9.8 7.0 - 11.0 FL LAB HEMETOLOGY METHOD 09/17/2024 9:00 AM [facility] NRBC 0.0 <1.0 % LAB HEMETOLOGY METHOD 09/17/2024 9:00 AM EDT [facility] NRBC Absolute 0.00 <0.10 K/mcL LAB HEMETOLOGY METHOD 09/17/2024 9:00 AM EDT [facility] Blood Venous blood specimen / Unknown Venipuncture / Unknown 09/17/2024 6:10 AM EDT 09/17/2024 8:40 AM EDT us Lazaro Santoyo MD LAB BLOOD ORDERABLES Final Resul t [facility] [address] [place] [address], documented in this encounter Visit Diagnoses Diagnosis [...] documented as of this encounter Care Teams Supervisor Channel Process Relationship Specialty Start Date End Date Polo Kay NP [address] [place] [address] PCP - General Nurse Practitioner 12/28/24 documented as of this encounter
--- OUTSIDE RECORDS SUMMARY | 2025-05-02 01:07 | XMS_ITS | Encounter Summary ---
Author Organization [facility] Address [address] [place] [address] Care Team Providers Care Senior Account Manager Name Role Phone Polo Kay NP Primary Care Provider +1- [phone] Encounter Details Date Type Department Care Team (Late st Contact Info) Description 09/21/[address] [facility] - Main Lab [address] [facility] [place] [phone] Lazaro Santoyo MD [address] [place] [address] Chronic kidney disease, unspecified Social History Tobacco [...] your loved ones. For example, child care associate teacher or elderly care for an [...] STS ST LTG General No Ene Moffett, POULTRY DRESSER Note: Pt will improve cognitive linguistic function to participate and communicate in basic ADLs supervision ST STGs General No Ene Moffett, POULTRY DRESSER Note: Pt will participate with development of [...] Associated Diagnosis Comments BASIC METABOLIC PANEL Routine 09/21/2024 8:38 AM EDT Chronic kidney disease, unspecified documented in this encounter Results * (ABNORMAL) Basic metabolic panel (09/21/2024 8:38 AM EDT) Sodium 136 133 - 145 mmol/L LAB CHEMISTRY METHOD 09/21/2024 11:[address] [facility] Potassium 4.9 3.5 - 5.5 mmol/L LAB CHEMISTRY METHOD 09/21/2024 11:[address] [facility] Chloride 107 96 - 110 mmol/L LAB CHEMISTRY METHOD 09/21/2024 11:23 AM [facility] CO2 21 21 - 32 mmol/L LAB CHEMISTRY METHOD 09/21/2024 11:23 AM [facility] Anion Gap 8 3 - 11 LAB CHEMISTRY METHOD 09/21/2024 11:23 AM [facility] Glucose 122(H) 70 - 100 mg/dL LAB CHEMISTRY METHOD 09/21/2024 11:23 AM [facility] BUN 60(H) 5 - 25 mg/dL LAB CHEMISTRY METHOD 09/21/2024 11:23 AM [facility] Creatinine 3.26(H) 0.50 - 1.10 mg/dL LAB CHEMISTRY METHOD 09/21/2024 11:23 AM [facility] eGFR 16(L) >=60 mL/min/1. 73m2 LAB CHEMISTRY METHOD 09/21/2024 11:23 AM [facility] Comment:Calculation based on the Chronic Kidney Disease Epidemiology Collaboration (CKD-EPI) equation refit without adjustment for race. BUN/Creatinine Ratio 18.4 LAB CHEMISTRY METHOD 09/21/2024 11:23 AM [facility] Calcium 8.2(L) 8.5 - 10.5 mg/dL LAB CHEMISTRY METHOD 09/21/2024 11:23 AM [facility] Blood Venous blood specimen / Unknown Venipuncture / Unknown 09/21/2024 8:38 AM EDT 09/21/2024 10:10 AM EDT us Lazaro Santoyo MD LAB BLOOD ORDERABLES Final Resul t [facility] [address] [place] [address], documented in this encounter Visit Diagnoses Diagnosis [...] documented as of this encounter Care Teams Senior Account Manager Relationship Specialty Start Date End Date Polo Kay NP [facility] [place] [address] PCP - General Nurse Practitioner 12/28/24 documented as of this encounter
--- OUTSIDE RECORDS SUMMARY | 2025-05-02 01:07 | XMS_ITS | Encounter Summary ---
Author Organization [facility] Address [address] [place] [address] Care Team Providers Care Workforce Development Specialist Name Role Phone Polo Kay NP Primary Care Provider +1- [phone] Encounter Details Date Type Department Care Team (Late st Contact Info) Description 09/05/2024 Lab Requisition [facility] - Main Lab [address] [place] [phone] Lazaro Santoyo MD [address] [place] [address] Essential (primary) hypertension; Weakness Social History Tobacco [...] for your loved ones. For example, child support specialist or elderly care for an older adult? [...] [facility] General No Ene Moffett, DIRECTOR OF PHOTOGRAPHY Note: Pt will improve cognitive linguistic function to participate and communicate in basic ADLs supervision ST [facility] General No Ene Moffett, DIRECTOR OF PHOTOGRAPHY Note: Pt will participate with development of [...] documented as of this encounter Care Teams Workforce Development Specialist Relationship Specialty Start Date End Date Polo Kay NP [address] [place] [address] PCP - General Nurse Practitioner 12/28/24 documented as of this encounter
--- OUTSIDE RECORDS SUMMARY | 2025-05-02 01:08 | XMS_ITS | Encounter Summary ---
Author Organization [facility] Address [address] [place] [address] Care Team Providers Care Aerographer Name Role Phone Polo Kay NP Primary Care Provider +1- [phone] Encounter Details Date Type Department Care Team (Late st Contact Info) Description 06/24/2024 Lab Requisition [facility] - Main Lab [address] [place] [phone] Lazaro Santoyo MD [address] [place] [address] Dehydration Social History Tobacco Use Types Packs/Day Years [...] track( 025 2:03 PM EST) No Elena Wcik, OT Note: PROM L shldr elevation at [...] min assist [facility] General No Een Moffett, BOND CLERK Note: Pt will improve cognitive linguistic function to participate and communicate in basic ADLs supervision ST ST[facility] General No Ene Moffett, BOND CLERK Note: Pt will participate with development of [...] Associated Diagnosis Comments BASIC METABOLIC PANEL Routine 06/25/2024 7:50 AM EST Dehydration documented in this encounter Results * (ABNORMAL) Basic metabolic panel (06/25/2024 7:50 AM EST) Sodium 135 133 - 145 mmol/L LAB CHEMISTRY METHOD 06/25/2024 9:[address] [facility] Potassium 4.5 3.5 - 5.5 mmol/L LAB CHEMISTRY METHOD 06/25/2024 9:[address] [facility] Chloride 104 96 - 110 mmol/L LAB CHEMISTRY METHOD 06/25/2024 9:[address] [facility] CO2 24 21 - 32 mmol/L LAB CHEMISTRY METHOD 06/25/2024 9:[address] [facility] Anion Gap 7 3 - 11 LAB CHEMISTRY METHOD 06/25/2024 9:[address] [facility] Glucose 96 70 - 100 mg/dL LAB CHEMISTRY METHOD 06/25/2024 9:[address] [facility] BUN 53(H) 5 - 25 mg/dL LAB CHEMISTRY METHOD 06/25/2024 9:[address] [facility] Creatinine 2.00(H) 0.50 - 1.10 mg/dL LAB CHEMISTRY METHOD 06/25/2024 9:[address] [facility] eGFR 28(L) >=60 mL/min/1. 73m2 LAB CHEMISTRY METHOD 06/25/2024 9:[address] [facility] Comment:Calculation based on the Chronic Kidney Disease Epidemiology Collaboration (CKD-EPI) equation refit without adjustment for race. BUN/Creatinine Ratio 26.5 LAB CHEMISTRY METHOD 06/25/2024 9:[address] [facility] Calcium 8.5 8.5 - 10.5 mg/dL LAB CHEMISTRY METHOD 06/25/2024 9:[address] [facility] Blood Venous blood specimen / Unknown Venipuncture / Unknown 06/25/2024 7:50 AM EST 06/25/2024 9:05 AM EST Lazaro Santoyo MD LAB BLOOD ORDERABLES Final Resul t [facility] [address] [place] [address], documented in this encounter Visit Diagnoses Diagnosis Dehydration documented in this encounter Additional Health Concerns [...] documented as of this encounter Care Teams Aerographer Relationship Specialty Start Date End Date Polo Kay NP [address] [place] [address] PCP - General Nurse Practitioner 12/28/24 documented as of this encounter
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
--- OUTSIDE RECORDS SUMMARY | 2025-05-02 01:08 | XMS_ITS | Data Portability ---
Author Organization [facility] Address [address] [place] [address] Care Team Providers Care Field Assistant Name Role Phone HIM CCA OTHER Assessment Encounter Date Assessment Date Assessment LastModified by Organization Details LastModified Time 04/20/2024 04/20/2024 I provided real -time medical direction via phone for this encounter and was available for additional phone-based assistance as needed. I have reviewed and agree with the Assessment and Plan as documented by the Chief Of Internal Medicine. Patient given the opportunity to ask questions. Our service contacted for an assessment of: chronic left should pain As per above, patient with chronic left shoulder pain. Fell at rehab approx 6 months ago and states that her pain is worse since then. Denies loss of function but does have some debility associated with the pain. Per ripsawyer on the scene, VSS, NAD. No obvious trauma or deformity Impression: Left shoulder pain Plan: Continue conservative care. Take Tylenol for pain. F/u with PCP. Allergies: Reviewed PCP f/u: maybenefit from an ortho consult We discussed the diagnostic uncertainty of home visits and the risk associated with this. In this case, the patient and I felt this to be an acceptable and reasonable amount of risk given the benefit of avoiding an ED visit. We discussed the need to seek care urgently/emergent ly in the setting of any new or worsening serious symptoms, particularly fever chills [email or web address] Not available 04/20/2024 12:22:08 04/17/2025 04/17/2025 Evaluation in [facility] field was performed by my ripsawyer colleague, as noted above, I provided real-time [...] Orders cephalexin 500 mg capsule 2024 [facility]25 [facility], [address], [place], [id number], 17:32:43 cefuroxime axetil 500 mg tablet 2024 025 [id number], [address], [place], [address], 05:00:59 Patient TargetsNo targets recorded. Patient InstructionsNo instructions recorded. Reason for Referral None Reported. Medical Equipment None Reported. Allergies Allergen ID Allergen Name Allergen Category Reaction Reaction Severity Criticality Documentation Date Start Date Code Code System Note Provider Name and Address Organization Details Recorded Time amlodipin e medicatio n Not available Not available Not available 04/17/2025 18777 RxNorm Not Available [employer] - prod 17:28:34 83138 amlodipin e / olmesarta n medicatio n Not available Not available Not available 04/17/20252021 65936 15 RxNorm Not Available [employer] - iCAD 17:28:38 43526 latex environme nt,medica tion Not available Not available Not available 04/17/2025 63359 91 RxNorm Not Available [employer] - iCAD 17:28:39 Medications Name Sig Start Date Stop [...] Not Available [facility] - production 5 17:28:05 Date Recorded Respiratory rate Oxygen saturation Heart rate Body temperature Systolic And Diastolic Provider Name and Address Organization Details Last Updated DateTime 4 16 /min 98 % 69 /min 96.9 [degF] 163/74 mm[Hg] Not Available [facility] - production 4 11:35:49 Social History None recorded. Functional Status None recorded. Mental Status None recorded. Family History Nothing Reported. Medical History No medical history recorded. Gynecological HistoryNo gynecological history recorded. Obstetrics History GPAL:G 0 P 0 0 0 0 Past Encounters Encounter ID Performer Location Encounter Start Date Encounter Closed Date Diagnosis/Indication Diagnosis SNOMED-CT Code Diagnosis ICD10 Code Diagnosis IMO Codes Diagnosis Note [id number] Jeanei Paige MD Main - [facility] [address] [place] [phone] 04/20/2024 11:35:47 04/20/2024 20:50:45 Pain of left shoulder joint 1220212837 [id number] M25.512 [id number] Elena Pabon MD Main[facility] [address] [id number] 04/17/2025 17:27:57 04/17/2025 18:46:50 Cellulitis of lower leg 350145030 L03.116 [id number] Open wound of left lower leg [id number] 3006450 S81.802A [id number] Health Concerns Section Related Observation LastModified by Organization Detai ls LastModified Time None Recorded Concern Status LastModified by Organization Details LastModified Time None Recorded Advance Directives Directive None Recorded Payers Insurance Date Sequence Insurance Name Policy Number Policy Ceja Covered Member ID Ceja Member ID Guarantor Name 04/30/2025 1 [facility] - DOS ON OR AFTER 2022 - DUAL ELIGIBLE - LONGTERM OPTIONS AND ONE CARE (MEDICARE REPLACEMENT/ADV ANTAGE - HMO) Kisha Saez [id number] Kisha Alvarez Notes Date Note Type Note Provider Name and Address Organization Details Recorded Time 04/20/2024 text/html [facility] Nurse Triage Notes (Ofelia Faye): Reason For Request: Daughter called Josee called mom is having pain in left shoulder Chief Complaints: Joint pain/swelling PMH: Diabetes Mellitus Type 2, Hypertension, Stroke, Transient Ischemic Attack (TIA), Chronic Kidney Disease, Hyperlipidemia Pain Assessment: Level 7 out of 10 Comments: Pt woke up with left shoulder pain. 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 No deformity, swelling, or discoloration noted. Difficult ROM. Took Motrin last night. rates pain 7/10 now. No falls or acute injuries. ..................... ..................... ..................... ..................... ..................... ..................... ............... Chief Of Internal Medicine Note From Cassius Rg: This 59-year-old female with a history including but not limited to DM type II, HTN, stroke, TIA, CKD, HLD requested a visit to address ongoing pain in her left shoulder. Patient states she fell at rehab approximately six months ago injuring her left shoulder and has since been told she has osteoarthritis. Patient has been taking ibuprofen with moderate relief. Patient also using heat, ice, lidocaine patch, OTC creams. Patient is scheduled to begin physical therapy on 04/27/24. Patient has not tried using Tylenol. Patient denies any new injuries or severe pain.Patient presents awake and alert, and no acute distress. Her vital signs are reasonably stable and she is afebrile. She has full range of motion of her left arm and normal distal pulses and sensation.I recommend that she doesn't take anymore ibuprofen until she speaks with her primary care physician and/or nephrology regarding her kidney function. I recommend she continue using ice, heat, OTC creams and lidocaine patches. I also recommend she begin taking Tylenol 1 g every eight hours. The patient and her family were given the opportunity to ask questions and are agreeable to this plan. ..................... ..................... ..................... ..................... ..................... ..................... ............... [facility] Consulted: Jeanie Paige ..................... ..................... ..................... ..................... ..................... ..................... ............... Disposition: Indu Paige MD [address] [facility],[address], [place], [address], [place] [facility] 04/20/2024 12:22:32 04/17/2025 text/html ROS as noted in the HPI [facility] Nurse Triage Notes (Celso Solorio - FABIOLA): Reason For Request: wound care Denies: Delaney [...] 14:32 (ET) Allergies Reviewed at 04/17/2025 - :32 (ET) Comments: 60 y.o female complains of [...] ..................... ..................... ..................... ..................... ..................... ..................... ............... Chief Of Internal Medicine Note From Macho Logan: Encountered patient seated upright and conscious, [...] to the touch. Peripheral pulses present throughout. [facility] contacted: wound care performed, patients wound was cleansed with sterile water, then fortified with non-adhesive dressing and wrapped with gauze. 500mg of PO Keflex administered after medication r ights were reconciled with patient and family. [facility] states they will send a prescription [...] states she is comfortable remaining home today. [facility] Medication Orders: cephalexin 500 mg capsule: Administered ..................... ..................... ..................... ..................... ..................... ..................... ............... [facility] Consulted: Elena Pabon ..................... ..................... ..................... ..................... ..................... ..................... ............... Disposition: Fulfilled Elena Pbaon MD [address] [place] [address],[address], [place], [address], [email or web address] [facility] 04/17/2025 18:18:04 OBGyn Episode No OBEpisode recorded.
--- OUTSIDE RECORDS SUMMARY | 2025-05-02 01:08 | XMS_ITS | Encounter Summary ---
Author Organization [facility] Address [address] [place] [address] Care Team Providers Care Auditor Supervisor Name Role Phone Polo Kay NP Primary Care Provider +1- [phone] Encounter Details Date Type Department Care Team (Late st Contact Info) Description 06/16/2024 Lab Requisition [facility] - Main Lab [address] [facility] [place] [phone] Lazaro Santoyo MD [address] [place] [address] Essential (primary) hypertension; Hypertensive crisis, unspecified Social History Tobacco Use Types Packs/Day [...] STS ST LTG General No Ene Moffett, FLAVORER Note: Pt will improve cognitive linguistic function to participate and communicate in basic ADLs supervision ST STGs General No Ene Moffett, FLAVORER Note: Pt will participate with development of [...] Associated Diagnosis Comments BASIC METABOLIC PANEL Routine 06/17/2024 5:19 AM EST Essential (primary) hypertension Hypertensive crisis, unspecified documented in this encounter Results * (ABNORMAL) Basic metabolic panel (06/17/2024 5:19 AM EST) Sodium 134 133 - 145 mmol/L LAB CHEMISTRY METHOD 06/17/2024 11:20 AM [facility] Potassium 4.7 3.5 - 5.5 mmol/L LAB CHEMISTRY METHOD 06/17/2024 11:20 AM [facility] Chloride 103 96 - 110 mmol/L LAB CHEMISTRY METHOD 06/17/2024 11:20 AM [facility] CO2 22 21 - 32 mmol/L LAB CHEMISTRY METHOD 06/17/2024 11:20 AM [facility] Anion Gap 9 3 - 11 LAB CHEMISTRY METHOD 06/17/2024 11:20 AM [facility] Glucose 172(H) 70 - 100 mg/dL LAB CHEMISTRY METHOD 06/17/2024 11:20 AM [facility] BUN 37(H) 5 - 25 mg/dL LAB CHEMISTRY METHOD 06/17/2024 11:20 AM [facility] Creatinine 1.79(H) 0.50 - 1.10 mg/dL LAB CHEMISTRY METHOD 06/17/2024 11:20 AM [facility] eGFR 32(L) >=60 mL/min/1. 73m2 LAB CHEMISTRY METHOD 06/17/2024 11:20 AM [facility] Comment:Calculation based on the Chronic Kidney Disease Epidemiology Collaboration (CKD-EPI) equation refit without adjustment for race. BUN/Creatinine Ratio 20.7 LAB CHEMISTRY METHOD 06/17/2024 11:20 AM [facility] Calcium 8.2(L) 8.5 - 10.5 mg/dL LAB CHEMISTRY METHOD 06/17/2024 11:20 AM EST [facility] Blood Venous blood specimen / Unknown Venipuncture / Unknown 06/17/2024 5:19 AM EST 06/17/2024 10:17 AM EST us Lazaro Santoyo MD LAB BLOOD ORDERABLES Final Resul t [facility] [address] [place] [address], documented in this encounter Visit Diagnoses Diagnosis Essential (primary) hypertension Unspecified essential hypertension Hypertensive crisis, unspecified documented in this encounter Additional Health [...] documented as of this encounter Care Teams Auditor Supervisor Relationship Specialty Start Date End Date Polo Kay NP [address] [place] [address] PCP - General Nurse Practitioner 12/28/24 documented as of this encounter
--- OUTSIDE RECORDS SUMMARY | 2025-05-02 01:08 | XMS_ITS | Encounter Summary ---
Author Organization [facility] Address [address] [place] [address] Care Team Providers Care Superintendent Of Schools Name Role Phone Eliza Polo NIX Primary Care Provider +1- [phone] Encounter Details Date Type Department Care Team (Late st Contact Info) Description 07/15/2024 Lab Requisition [facility] - Main Lab [address] [facility] [place] [phone] Lazaro Santoyo MD [address] [place] [address] Essential (primary) hypertension Social History Tobacco Use [...] STS ST LTG General No Ene Moffett, LOCKS TENDER Note: Pt will improve cognitive linguistic function to participate and communicate in basic ADLs supervision ST STGs General No Ene Moffett, LOCKS TENDER Note: Pt will participate with development of [...] Associated Diagnosis Comments COMPLETE BLOOD COUNT Routine 07/15/2024 8:05 AM EST Essential (primary) hypertension documented in this encounter Results * (ABNORMAL) Complete blood count (07/15/2024 8:05 AM EST) WBC 8.1 4.8 - 10.8 K/mcL LAB HEMETOLOGY METHOD 07/15/2024 12:[address] [facility] RBC 2.40(L) 3.80 - 4.80 M/mcL LAB HEMETOLOGY METHOD 07/15/2024 12:[address] [facility] Hemoglobin 6.9(L) 11.5 - 16.0 g/dL LAB HEMETOLOGY METHOD 07/15/2024 12:[address] [facility] Hematocrit 21.6(L) 35.0 - 47.0 % LAB HEMETOLOGY METHOD 07/15/2024 12:[address] [facility] MCV 90.0 79.0 - 98.0 FL LAB HEMETOLOGY METHOD 07/15/2024 12:[address] [facility] MCH 28.8 27.0 - 32.0 pcg LAB HEMETOLOGY METHOD 07/15/2024 12:[address] [facility] MCHC 31.9(L) 32.0 - 37.0 g/dL LAB HEMETOLOGY METHOD 07/15/2024 12:[address] [facility] RDW 13.1 11.0 - 15.0 % LAB HEMETOLOGY METHOD 07/15/2024 12:[address] [facility] Platelets 396 130 - 400 K/mcL LAB HEMETOLOGY METHOD 07/15/2024 12:[address] [facility] MPV 9.9 7.0 - 11.0 FL LAB HEMETOLOGY METHOD 07/15/2024 12:[address] [facility] NRBC 0.0 <1.0 % LAB HEMETOLOGY METHOD 07/15/2024 12:[address] [facility] NRBC Absolute 0.00 <0.10 K/mcL LAB HEMETOLOGY METHOD 07/15/2024 12:[address] [facility] Blood Venous blood specimen / Unknown Venipuncture / Unknown 07/15/2024 8:05 AM EST 07/15/2024 11:36 AM EST us Lazaro Santoyo MD LAB BLOOD ORDERABLES Final Resul t [facility] [address] [place] [address], [place] [phone] documented in this encounter Visit Diagnoses Diagnosis [...] documented as of this encounter Care Teams Superintendent Of Schools Relationship Specialty Start Date End Date Polo Kay NP [address] [place] [address] PCP - General Nurse Practitioner 12/28/24 documented as of this encounter
--- OUTSIDE RECORDS SUMMARY | 2025-05-02 01:08 | XMS_ITS | Encounter Summary ---
Author Organization [facility] Address [address] [place] [address] Care Team Providers Care Projects Manager Name Role Phone Polo Kay NP Primary Care Provider +1- [phone] Encounter Details Date Type Department Care Team (Late st Contact Info) Description 07/05/2024 Lab Requisition [facility] - Main Lab [address] [facility] [place] [phone] Lazaro Santoyo MD [address] [place] [address] Chronic kidney disease, unspecified; Anemia, unspecified Social History Tobacco Use Types [...] as of this encounter Functional Status * Calculated C-SSRS Risk Score (Lifetime/Recent) Answer Date of Assessment Author No Risk Indicated 07/08/2024 6:00 PM EST Chitra Connell RN * [place] Suicide Severity Rating Scale (Screener/Recent Self-Report) Question Answer Date of Assessment Author 1. Wish to be (Past 1 Month) No 07/08/2024 6:00 PM EST Wilmar Brothers RN 2. Non-Specific Active Suici nolberto Thoughts (Past 1 Month) No 07/08/2024 6:00 PM EST Malika Brothers RN 6. Suicidal Behavior (Lifetime) No 6:00 PM EST Chitra Brothers RN documented as of this encounter Plan of [...] STS ST LTG General No Ene Moffett, ENGAGEMENT SPECIALIST Note: Pt will improve cognitive linguistic function to participate and communicate in basic ADLs supervision ST STGs General No Ene Moffett, ENGAGEMENT SPECIALIST Note: Pt will participate with development [...] Procedure Name Priority Date/Time Associated Diagnosis Comments VITAMIN B12 AND FOLATE Routine 07/05/2024 9:24 AM EST Chronic kidney disease, unspecified Anemia, unspecified IRON AND TIBC Routine 07/05/2024 9:24 AM EST Chronic kidney disease, unspecified Anemia, unspecified COMPLETE BLOOD COUNT Routine 07/05/2024 9:24 AM EST Chronic kidney disease, unspecified Anemia, unspecified FERRITIN Routine 07/05/2024 9:24 AM EST Chronic kidney disease, unspecified Anemia, unspecified BASIC METABOLIC PANEL Routine 07/05/2024 9:24 AM EST Chronic kidney disease, unspecified Anemia, unspecified documented in this encounter Results * Vitamin B12 and folate (07/05/2024 9:24 AM EST) Vitamin B-12 414 250 - 900 pcg/mL LAB CHEMISTRY METHOD 07/05/2024 2:27 PM EST [facility] Folate 10.7 2.8 - 17.0 ng/ml LAB CHEMISTRY METHOD 07/05/2024 2:27 PM EST [facility] Blood Venous blood specimen / Unknown Venipuncture / Unknown 07/05/2024 9:24 AM EST 07/05/2024 1:18 PM EST us Lazaro Santoyo MD LAB BLOOD ORDERABLES Final Resul t Performing Organization Address [facility]/ZIP Co de Phone Number [facility] [address] [place] [address], [place] [phone] * Ferritin (07/05/2024 9:24 AM EST) Ferritin 99 8 - 252 ng/mL LAB CHEMISTRY METHOD 07/05/2024 2:27 PM EST [facility] Blood Venous blood specimen / Unknown Venipuncture / Unknown 07/05/2024 9:24 AM EST 07/05/2024 1:18 PM EST us Lazaro Santoyo MD LAB BLOOD ORDERABLES Final Resul t Performing Organization Address [facility] de Phone Number [facility] [address] [place] [address], [place] [phone] * (ABNORMAL) Iron and TIBC (07/05/2024 9:24 AM EST) Iron 15(L) 40 - 150 mcg/dL LAB CHEMISTRY METHOD 07/05/2024 2:04 PM EST [facility] TIBC 216(L) 250 - 450 mcg/dL LAB CHEMISTRY METHOD 07/05/2024 2:04 PM EST [facility] Iron Saturation 7(L) 15 - 50 % LAB CHEMISTRY METHOD 07/05/2024 2:04 PM EST [facility] Blood Venous blood specimen / Unknown Venipuncture / Unknown 07/05/2024 9:24 AM EST 07/05/2024 1:18 PM EST us Lazaro Santoyo MD LAB BLOOD ORDERABLES Final Resul t [facility] [address] [place] [address], * (ABNORMAL) Basic metabolic panel (07/05/2024 9:24 AM EST) Sodium 135 133 - 145 mmol/L LAB CHEMISTRY METHOD 07/05/2024 2:27 PM [facility] Potassium 4.8 3.5 - 5.5 mmol/L LAB CHEMISTRY METHOD 07/05/2024 2:27 PM [facility] Chloride 105 96 - 110 mmol/L LAB CHEMISTRY METHOD 07/05/2024 2:27 PM [facility] CO2 19(L) 21 - 32 mmol/L LAB CHEMISTRY METHOD 07/05/2024 2:27 PM [facility] Anion Gap 11 3 - 11 LAB CHEMISTRY METHOD 07/05/2024 2:27 PM [facility] Glucose 187(H) 70 - 100 mg/dL LAB CHEMISTRY METHOD 07/05/2024 2:27 PM [facility] BUN 47(H) 5 - 25 mg/dL LAB CHEMISTRY METHOD 07/05/2024 2:27 PM [facility] Creatinine 2.21(H) 0.50 - 1.10 mg/dL LAB CHEMISTRY METHOD 07/05/2024 2:27 PM [facility] eGFR 25(L) >=60 mL/min/1. 73m2 LAB CHEMISTRY METHOD 07/05/2024 2:27 PM [facility] Comment:Calculation based on the Chronic Kidney Disease Epidemiology Collaboration (CKD-EPI) equation refit without adjustment for race. BUN/Creatinine Ratio 21.3 LAB CHEMISTRY METHOD 07/05/2024 2:27 PM [facility] Calcium 8.6 8.5 - 10.5 mg/dL LAB CHEMISTRY METHOD 07/05/2024 2:27 PM EST [facility] Blood Venous blood specimen / Unknown Venipuncture / Unknown 07/05/2024 9:24 AM EST 07/05/2024 1:18 PM EST us Lazaro Santoyo MD LAB BLOOD ORDERABLES Final Resul t [facility] [address] [place] [address], * (ABNORMAL) Complete blood count (07/05/2024 9:24 AM EST) WBC 8.1 4.8 - 10.8 K/mcL LAB HEMETOLOGY METHOD 07/05/2024 2:00 PM [facility] RBC 2.60(L) 3.80 - 4.80 M/mcL LAB HEMETOLOGY METHOD 07/05/2024 2:00 PM [facility] Hemoglobin 7.5(L) 11.5 - 16.0 g/dL LAB HEMETOLOGY METHOD 07/05/2024 2:00 PM [facility] Hematocrit 23.0(L) 35.0 - 47.0 % LAB HEMETOLOGY METHOD 07/05/2024 2:00 PM [facility] MCV 89.5 79.0 - 98.0 FL LAB HEMETOLOGY METHOD 07/05/2024 2:00 PM [facility] MCH 29.2 27.0 - 32.0 pcg LAB HEMETOLOGY METHOD 07/05/2024 2:00 PM [facility] MCHC 32.6 32.0 - 37.0 g/dL LAB HEMETOLOGY METHOD 07/05/2024 2:00 PM [facility] RDW 13.3 11.0 - 15.0 % LAB HEMETOLOGY METHOD 07/05/2024 2:00 PM [facility] Platelets 241 130 - 400 K/mcL LAB HEMETOLOGY METHOD 07/05/2024 2:00 PM EST [facility] MPV 10.5 7.0 - 11.0 FL LAB HEMETOLOGY METHOD 07/05/2024 2:00 PM EST [facility] NRBC 0.0 <1.0 % LAB HEMETOLOGY METHOD 07/05/2024 2:00 PM EST [facility] NRBC Absolute 0.00 <0.10 K/mcL LAB HEMETOLOGY METHOD 07/05/2024 2:00 PM EST [facility] Blood Venous blood specimen / Unknown Venipuncture / Unknown 07/05/2024 9:24 AM EST 07/05/2024 1:18 PM EST us Lazaro Santoyo MD LAB BLOOD ORDERABLES Final Resul t [facility] [address] [place] [address], documented in this encounter Visit Diagnoses Diagnosis Chronic kidney disease, unspecified Anemia, unspecified documented in this encounter Additional [...] documented as of this encounter Care Teams Projects Manager Relationship Specialty Start Date End Date Polo Kay NP [address] [place] [address] PCP - General Nurse Practitioner 12/28/24 documented as of this encounter
--- OUTSIDE RECORDS SUMMARY | 2025-05-02 01:08 | XMS_ITS | Continuity of Care Document ---
Author Name Seth Tavera Address [address] [place] [id number] Organization Unknown Address [address] [place] [address] Medications No known medications Problems No known problems
--- OUTSIDE RECORDS SUMMARY | 2025-05-02 01:08 | XMS_ITS | Encounter Summary ---
Author Organization [facility] Address [address] [place] [address] Care Team Providers Care Tube Carrier Name Role Phone Eliza, Tylor DINAH Primary Care Provider [phone]- [phone] Encounter Details Date Type Department Care Team (Latest Contact Info) Description 08/02/2024 Lab Requisition [facility] - Main Lab [address] [facility] [place] [phone] Rayo Stoner MD [address], [place] [id number] Essential (primary) hypertension; Type 2 diabetes mellitus without complications (CMS/HCC V24, CMS/HCC V28); Acute kidney failure, unspecified (CMS/HCC V24) Social History Tobacco Use Types Packs/Day Years Used Date Smoking Tobacco: Every Day Cigarettes 2 Started: 1994 Smokeless Tobacco: Never Alcohol Use [...] STS ST LTG General No Ene Moffett, LYMPHEDEMA THERAPIST Note: Pt will improve cognitive linguistic function to participate and communicate in basic ADLs supervision ST STGs General No Ene Moffett, LYMPHEDEMA THERAPIST Note: Pt will participate with development of [...] Associated Diagnosis Comments COMPLETE BLOOD COUNT Routine 08/02/2024 10:39 AM EDT Essential (primary) hypertension Type 2 diabetes mellitus without complications (CMS/HCC) Acute kidney failure, unspecified (CMS/HCC) HEMOGLOBIN A1C Routine 08/02/2024 10:39 AM EDT Essential (primary) hypertension Type 2 diabetes mellitus without complications (CMS/HCC) Acute kidney failure, unspecified (CMS/HCC) COMPREHENSIVE METABOLIC PANEL Routine 08/02/2024 10:39 AM EDT Essential (primary) hypertension Type 2 diabetes mellitus without complications (CMS/HCC) Acute kidney failure, unspecified (CMS/HCC) documented in this encounter Results * (ABNORMAL) Hemoglobin A1c (08/02/2024 10:39 AM EDT) Hemoglobin A1C 8.0(H) <6.5 % LAB CHEMISTRY METHOD 08/02/2024 6:56 PM EDT [facility] Mean Bld Glu Estim. 183 mg/dL LAB CHEMISTRY METHOD 08/02/2024 6:56 PM EDT [facility] Blood Venous blood specimen / Unknown Venipuncture / Unknown 08/02/2024 10:39 AM EDT 08/02/2024 12:19 PM EDT us Rayo Stoner MD LAB BLOOD ORDERABLES Final R esult [facility]) [facility] [address] [place] [address], * (ABNORMAL) Comprehensive metabolic panel (08/02/2024 10:39 AM EDT) Sodium 139 133 - 145 mmol/L LAB CHEMISTRY METHOD 08/02/2024 2:08 PM [facility] Potassium 4.4 3.5 - 5.5 mmol/L LAB CHEMISTRY METHOD 08/02/2024 2:08 PM [facility] Chloride 106 96 - 110 mmol/L LAB CHEMISTRY METHOD 08/02/2024 2:08 PM [facility] CO2 22 21 - 32 mmol/L LAB CHEMISTRY METHOD 08/02/2024 2:08 PM [facility] Anion Gap 11 3 - 11 LAB CHEMISTRY METHOD 08/02/2024 2:08 PM [facility] Glucose 147(H) 70 - 100 mg/dL LAB CHEMISTRY METHOD 08/02/2024 2:08 PM [facility] BUN 21 5 - 25 mg/dL LAB CHEMISTRY METHOD 08/02/2024 2:08 PM [facility] Creatinine 1.82(H) 0.50 - 1.10 mg/dL LAB CHEMISTRY METHOD 08/02/2024 2:08 PM [facility] eGFR 32(L) >=60 mL/min/1. 73m2 LAB CHEMISTRY METHOD 08/02/2024 2:08 PM [facility] Comment:Calculation based on the Chronic Kidney Disease Epidemiology Collaboration (CKD-EPI) equation refit without adjustment for race. BUN/Creatinine Ratio 11.5 LAB CHEMISTRY METHOD 08/02/2024 2:08 PM [facility] Calcium 8.4(L) 8.5 - 10.5 mg/dL LAB CHEMISTRY METHOD 08/02/2024 2:08 PM [facility] AST (SGOT) 12 10 - 42 unit/L LAB CHEMISTRY METHOD 08/02/2024 2:08 PM [facility] ALT (SGPT) 16 10 - 60 unit/L LAB CHEMISTRY METHOD 08/02/2024 2:08 PM [facility] Alkaline Phosphatase 120 42 - 121 unit/L LAB CHEMISTRY METHOD 08/02/2024 2:08 PM EDT [facility] Total Protein 5.7(L) 6.0 - 8.0 g/dL LAB CHEMISTRY METHOD 08/02/2024 2:08 PM EDT [facility] Albumin 2.5(L) 3.2 - 5.0 g/dL LAB CHEMISTRY METHOD 08/02/2024 2:08 PM EDT [facility] Total Bilirubin 0.4 0.0 - 1.4 mg/dL LAB CHEMISTRY METHOD 08/02/2024 2:08 PM EDT [facility] Blood Venous blood specimen / Unknown Venipuncture / Unknown 08/02/2024 10:39 AM EDT 08/02/2024 12:19 PM EDT us Rayo Stoner MD LAB BLOOD ORDERABLES Final R esult [facility] [address] [place] [address], * (ABNORMAL) Complete blood count (08/02/2024 10:39 AM EDT) WBC 8.4 4.8 - 10.8 K/mcL LAB HEMETOLOGY METHOD 08/02/2024 1:26 PM EDT [facility] RBC 3.00(L) 3.80 - 4.80 M/mcL LAB HEMETOLOGY METHOD 08/02/2024 1:26 PM EDT [facility] Hemoglobin 8.2(L) 11.5 - 16.0 g/dL LAB HEMETOLOGY METHOD 08/02/2024 1:26 PM EDT [facility] Hematocrit 25.7(L) 35.0 - 47.0 % LAB HEMETOLOGY METHOD 08/02/2024 1:26 PM EDT [facility] MCV 87.1 79.0 - 98.0 FL LAB HEMETOLOGY METHOD 08/02/2024 1:26 PM EDT [facility] MCH 27.8 27.0 - 32.0 pcg LAB HEMETOLOGY METHOD 08/02/2024 1:26 PM EDT [facility] MCHC 31.9(L) 32.0 - 37.0 g/dL LAB HEMETOLOGY METHOD 08/02/2024 1:26 PM EDT [facility] RDW 13.3 11.0 - 15.0 % LAB HEMETOLOGY METHOD 08/02/2024 1:26 PM EDT [facility] Platelets 241 130 - 400 K/mcL LAB HEMETOLOGY METHOD 08/02/2024 1:26 PM EDT [facility] MPV 10.1 7.0 - 11.0 FL LAB HEMETOLOGY METHOD 08/02/2024 1:26 PM EDT [facility] NRBC 0.0 <1.0 % LAB HEMETOLOGY METHOD 08/02/2024 1:26 PM EDT [facility] NRBC Absolute 0.00 <0.10 K/mcL LAB HEMETOLOGY METHOD 08/02/2024 1:26 PM EDT [facility] Blood Venous blood specimen / Unknown Venipuncture / Unknown 08/02/2024 10:39 AM EDT 08/02/2024 12:19 PM EDT us Rayo Stoner MD LAB BLOOD ORDERABLES Final R esult [facility] [address] [place] [address], documented in this encounter Visit Diagnoses Diagnosis Essential (primary) hypertension Unspecified essential hypertension Type 2 diabetes mellitus without complications (CMS/HCC V24, CMS/HCC V28) Acute kidney failure, unspecified ([facility] V24) Acute kidney failure, unspecified documented in this encounter Additional Health [...] documented as of this encounter Care Teams Tube Carrier Relationship Specialty Start Date End Date Polo Kay NP [address] [place] [id number] PCP - General Nurse Practitioner 12/28/24 documented as of this encounter
--- OUTSIDE RECORDS SUMMARY | 2025-05-02 01:08 | XMS_ITS | Encounter Summary ---
Author Organization [facility] Address [address] [place] [address] Care Team Providers Care Sand Wheeler Name Role Phone Polo Kay NP Primary Care Provider [phone]- [phone] Encounter Details Date Type Department Care Team (Late st Contact Info) Description 06/18/2024 Lab Requisition [facility] - Main Lab [address] [place] [phone] Lazaro Santoyo MD [address] [place] [address] Hemiplegia and hemiparesis following cerebral infarction affecting left dominant side (CMS/HCC V24, CMS/HCC V28); Type 2 diabetes mellitus without complications (CMS/HCC V24, CMS/HCC V28); Hypertensive crisis, unspecified Social History Tobacco Use [...] STS ST LTG General No Ene Moffett, KINDERGARTEN ASSISTANT Note: Pt will improve cognitive linguistic function to participate and communicate in basic ADLs supervision ST STGs General No Ene Moffett, KINDERGARTEN ASSISTANT Note: Pt will participate with development of [...] Associated Diagnosis Comments COMPLETE BLOOD COUNT Routine 06/21/2024 6:17 AM EST Hemiplegia and hemiparesis following cerebral infarction affecting left dominant side (CMS/HCC) Type 2 diabetes mellitus without complications (CMS/HCC) Hypertensive crisis, unspecified BASIC METABOLIC PANEL Routine 06/21/2024 6:17 AM EST Hemiplegia and hemiparesis following cerebral infarction affecting left dominant side (CMS/HCC) Type 2 diabetes mellitus without complications (CMS/HCC) Hypertensive crisis, unspecified documented in this encounter Results * (ABNORMAL) Basic metabolic panel (06/21/2024 6:17 AM EST) Sodium 135 133 - 145 mmol/L LAB CHEMISTRY METHOD 06/21/2024 1:00 PM [facility] Potassium 4.6 3.5 - 5.5 mmol/L LAB CHEMISTRY METHOD 06/21/2024 1:00 PM [facility] Chloride 103 96 - 110 mmol/L LAB CHEMISTRY METHOD 06/21/2024 1:00 PM [facility] CO2 23 21 - 32 mmol/L LAB CHEMISTRY METHOD 06/21/2024 1:00 PM [facility] Anion Gap 9 3 - 11 LAB CHEMISTRY METHOD 06/21/2024 1:00 PM [facility] Glucose 126(H) 70 - 100 mg/dL LAB CHEMISTRY METHOD 06/21/2024 1:00 PM [facility] BUN 44(H) 5 - 25 mg/dL LAB CHEMISTRY METHOD 06/21/2024 1:00 PM [facility] Creatinine 2.40(H) 0.50 - 1.10 mg/dL LAB CHEMISTRY METHOD 06/21/2024 1:00 PM EST [facility] eGFR 23(L) >=60 mL/min/1. 73m2 LAB CHEMISTRY METHOD 06/21/2024 1:00 PM [facility] Comment:Calculation based on the Chronic Kidney Disease Epidemiology Collaboration (CKD-EPI) equation refit without adjustment for race. BUN/Creatinine Ratio 18.3 LAB CHEMISTRY METHOD 06/21/2024 1:00 PM [facility] Calcium 8.2(L) 8.5 - 10.5 mg/dL LAB CHEMISTRY METHOD 06/21/2024 1:00 PM [facility] Blood Venous blood specimen / Unknown Venipuncture / Unknown 06/21/2024 6:17 AM EST 06/21/2024 10:42 AM EST us Lazaro Santoyo MD LAB BLOOD ORDERABLES Final Resul t [facility] [address] [place] [address], [place] [phone] * (ABNORMAL) Complete blood count (06/21/2024 6:17 AM EST) WBC 8.8 4.8 - 10.8 K/mcL LAB HEMETOLOGY METHOD 06/21/2024 11:08 AM [facility] RBC 2.90(L) 3.80 - 4.80 M/mcL LAB HEMETOLOGY METHOD 06/21/2024 11:08 AM [facility] Hemoglobin 8.3(L) 11.5 - 16.0 g/dL LAB HEMETOLOGY METHOD 06/21/2024 11:08 AM [facility] Hematocrit 25.4(L) 35.0 - 47.0 % LAB HEMETOLOGY METHOD 06/21/2024 11:08 AM [facility] MCV 87.3 79.0 - 98.0 FL LAB HEMETOLOGY METHOD 06/21/2024 11:08 AM [facility] MCH 28.5 27.0 - 32.0 pcg LAB HEMETOLOGY METHOD 06/21/2024 11:08 AM [facility] MCHC 32.7 32.0 - 37.0 g/dL LAB HEMETOLOGY METHOD 06/21/2024 11:08 AM [facility] RDW 13.3 11.0 - 15.0 % LAB HEMETOLOGY METHOD 06/21/2024 11:08 AM [facility] Platelets 310 130 - 400 K/mcL LAB HEMETOLOGY METHOD 06/21/2024 11:08 AM [facility] MPV 10.6 7.0 - 11.0 FL LAB HEMETOLOGY METHOD 06/21/2024 11:08 AM [facility] NRBC 0.0 <1.0 % LAB HEMETOLOGY METHOD 06/21/2024 11:08 AM [facility] NRBC Absolute 0.00 <0.10 K/mcL LAB HEMETOLOGY METHOD 06/21/2024 11:08 AM [facility] Blood Venous blood specimen / Unknown Venipuncture / Unknown 06/21/2024 6:17 AM EST 06/21/2024 10:44 AM EST us Lazaro Santoyo MD LAB BLOOD ORDERABLES Final Resul t [facility] [address] [place] [address], documented in this encounter Visit Diagnoses Diagnosis Hemiplegia and hemiparesis following cerebral infarction affecting left dominant side (CMS/HCC V24, CMS/HCC V28) Type 2 diabetes mellitus without complications (CMS/HCC V24, CMS/HCC V28) Hypertensive crisis, unspecified documented in this encounter [...] documented as of this encounter Care Teams Sand Wheeler Relationship Specialty Start Date End Date Polo Kay NP [address] [place] [address] PCP - General Nurse Practitioner 12/28/24 documented as of this encounter
--- OUTSIDE RECORDS SUMMARY | 2025-05-02 01:08 | XMS_ITS | Clinical Summary ---
Author Organization [facility][1] Address [address] [place] [address] Phone Care Team Providers Care Assistant Women'S Basketball Coach Name Role Phone Polo Kay DAVINA Primary Care Provider +1 -[phone] Allergies Active Allergy Reactions Criticality Noted Date Comments Amlodipine-Olmesartan 04/23/2022 Medications albuterol HFA (PROVENTIL HFA;VENTOLIN HFA) 108 (90 Base) MCG/ACT inhaler Inhale 2 puffs 020 Active busPIRone (BUSPAR) 15 MG tablet Take 15 mg by mouth 021 Active acetaminophen (TYLENOL) 500 MG tablet Take 500 mg by mouth 021 Active nitroglycerin (NITROSTAT) 0.[address] under the tongue 011 Active insulin lispro (HumaLOG) 100 UNIT/ML patient supplied pumpIndications:Type 2 Diabetes Mellitus Inject under the skin continuously Active aspirin 81 MG chewable tablet Chew 81 mg 1 (one) time each day 024 Active atorvastatin (LIPITOR) 80 MG tablet Take 1 tablet by mouth every night 024 Active labetalol (NORMODYNE) 200 MG tabletIndications:Acut e nontraumatic kidney injury, not otherwise specified (HCC),Stage 3b chronic kidney disease (HCC),Anemia in chronic kidney disease,Microalbuminur ia,Hypertension,Second hector hyperparathyroidism of renal origin (HCC),Cloudy urine,Vitamin D deficiency, not otherwise specified Take 200 mg by mouth in the morning and 200 mg at noon and 200 mg in the evening. Active cloNIDine (CATAPRES) 0.2 MG tabletIndications:Acut e nontraumatic kidney injury, not otherwise specified (HCC),Stage 3b chronic kidney disease (HCC),Anemia in chronic kidney disease,Microalbuminur ia,Hypertension,Second hector hyperparathyroidism of renal origin (HCC),Cloudy urine,Vitamin D deficiency, not otherwise specified Take 0.2 mg by mouth in the morning and 0.2 mg in the evening. Active divalproex (DEPAKOTE) 500 MG 24 hr tabletIndications:Acut e nontraumatic kidney injury, not otherwise specified (HCC),Stage 3b chronic kidney disease (HCC),Anemia in chronic kidney disease,Microalbuminur ia,Hypertension,Second hector hyperparathyroidism of renal origin (HCC),Cloudy urine,Vitamin D deficiency, not otherwise specified Take 500 mg by mouth in the morning and 500 mg in the evening. Do not crush, chew, or split. Active amLODIPine (NORVASC) 10 MG tabletIndications:Stag e 3b chronic kidney disease (HCC),Microalbuminuria ,Hypertension TAKE ONE TABLET BY MOUTH ONE time each DAY 30 tablet 025 Active calcitriol (ROCALTROL) 0.25 MCG capsule Take 1 capsule (0.25 mcg total) by mouth 1 (one) time each day 30 capsule 025 Active hydrALAZINE 50 MG tabletIndications:Acut e nontraumatic kidney injury, not otherwise specified (HCC),Stage 3b chronic kidney disease (HCC),Anemia in chronic kidney disease,Microalbuminur ia,Hypertension,Second hector hyperparathyroidism of renal origin (HCC),Cloudy urine,Vitamin D deficiency, not otherwise specified TAKE ONE TABLET BY MOUTH EVERY MORNING AND ONE TABLET EVERY EVENING AND ONE TABLET AT BEDTIME 90 tablet 2 025 Active baclofen (LIORESAL) 10 MG tablet Take 10 mg by mouth 024 Active carvedilol (COREG) 6.25 MG tablet Activ e Active Problems Problem Noted Date Diagnosed Date Other acute kidney failure 11/01/2024 Chronic kidney disease, stage 4 (severe) 025 Hypertensive chronic kidney disease 11/01/2024 Retention of urine 11/01/2024 Other iron deficiency anemia 09/27/2024 Acute nontraumatic kidney injury, not otherwise specified 09/27/2024 Cloudy urine 09/27/2024 Dysuria 07/26/2024 Secondary hyperparathyroidism of renal origin Anemia in chronic kidney disease 02/03/2024 Vitamin D deficiency due to chronic kidney disea se 02/03/2024 Mixed anxiety and depressive disorder 05/21/2021 Type 2 diabetes mellitus wit h diabetic chronic kidney disease 12/06/2020 Persistent proteinuria 12/06/2020 Chronic kidney disease, stage 2 (mild) Mass of parotid gland 10/25/2020 Overview (12/05/2020): Negative biopsy August 2020 [facility] ([facility] on [address]) 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 06/01/2019 Overview (12/05/2020): Followed by Neurologist Dr Bossman Rivas Neuropathy due to diabetes mellitus 01/12/2019 Disorder of eye due to type 2 diabetes mellitus 01/12/2019 Microalbuminuria 01/12/2019 Type 2 diabetes mellitus 01/12/2019 Venous varices 08/16/2018 Bilateral myopia 02/01/2016 Overview (12/05/2020): As per Dr.Britt Muse - [facility] visit date 01/10/16 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 10/26/2014 Overview (12/05/2020): per Nelia Ruiz OD - at [facility] 10/04/14 Other visual distortions and entoptic phenomena 10/26/2014 Overview (12/05/2020): per Nelia Ruiz OD - at [facility] 10/04/14 Presbyopia 10/26/2014 Overview (12/05/2020): per Nelia Ruiz OD - at [facility] 10/04/14 Type 2 diabetes mellitus 10/26/2014 Overview (12/05/2020): per Nelia Ruiz OD - at [facility] 10/04/[address]Britt Muse - [facility] visit date 01/10/16 Type 2 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 edema 10/26/2014 Overview (12/05/2020): per Nelia Ruiz OD - at [facility] 10/04/14 Hypertension 10/16/2014 H/O: menorrhagia 10/16/2014 Overview (12/05/2020): As per past Medical Records History of cardiac catheterization 10/16/2014 Overview (12/05/2020): As per past Medical Records- done 09/2010 [facility] Hyperlipidemia 10/16/2014 Resolved Problems Problem Noted Date Diagnosed Date Resolved Date Stage 3b chronic kidney disease 02/03/2024 11/01/2024 Encounters Date Type Department Care Team Description 04/07/2025 1:00 PM EST Office Visit [facility] [address] [place] [address] Claude Martinez MD Stage 5 chronic kidney disease (HCC) (Primary Dx) 03/15/2025 Refill [facility] [address] [place] [address] Cherie Jaime ARNP Acute nontraumatic kidney injury, not otherwise specified (HCC); Stage 3b chronic kidney disease (HCC); Anemia in chronic kidney disease; Microalbuminuria; Hypertension; Secondary hyperparathyroidism of renal origin (HCC); Cloudy urine; Vitamin D deficiency, not otherwise specified from Last 3 Months Immunizations Immunization Administration Dates Next Due Hepatitis B 10/17/2011,07/31/2010 Influenza Split 05/29/2012 Influenza TIV (IM) 04/29/2011 Pfizer SARS-COV-2 06/13/2020,05/23/2020 Pneumococcal Polysaccharide 12/22/2015, 1 Shingrix 08/24/2020,06/24/2019 Tdap 12/22/2015,05/15/2011 Family History Medical History Relation Comments Hypertension Father Hypertension Mother Relation Status Comments Father Mother Social History Tobacco Use Types Packs/Day Years Used Date Smoking Tobacco: Every Day Smokeless Tobacco: Current Tobacco Cessation:Ready to Q uit: Not Asked; Counseling Given: Not Answered Alcohol Use Standard Drinks/Week Comments Never 0 (1 standard drink = 0.6 oz pur e alcohol) Comments Unknown Sex and Gender Information Value Date Recorded Sex Assigned at Not on file Legal Sex Female 1:48 PM EDT Gender Identity Not on file Sexual Orientation Not on file Last Filed Vital Signs Vital Sign Reading Time Taken Comments Blood Pressure 140/82 04/07/2025 1:04 PM EST Pulse 80 04/07/2025 1:04 PM EST Temperature - - Respiratory Rate - - Oxygen Saturation 97% 04/07/2025 1:04 PM EST Inhaled Oxygen Concentration - - Weight 72.6 kg (160 lb) 11/01/2024 3:40 PM EDT Height 170.2 cm (5' 7 ) 04/23/2022 2:36 PM EST Body Mass Index 25.06 04/23/2022 2:36 PM EST Plan of Treatment Upcoming Encounters Date Type Department Care Team (Late st Contact Info) Description 06/09/2025 1:00 PM EST Office Visit [facility] [address] [place] [address] Claude Martinez MD [address] [place] [address] Health Maintenance Due Date Last Done Comments Breast Cancer Screening 1965 Colorectal Cancer Screening: Annual FOBT 01/22/2013 Colorectal Cancer Screening: Colonoscopy 01/22/2013 Colorectal Cancer Screening: Sigmoidoscopy 01/22/2013 Pneumococcal Vaccine: 50+ Years (3 of 3 - PCV) 12/21/2016 12/22/2015, 04/29/2011 Diabetes: Ophthalmology Exam 11/16/2020 Diabetes: Pedal Pulse Checked 11/16/2020 Diabetes: Sensory Foot Exam 11/16/2020 Diabetes: Visual Foot Exam 11/16/2020 Influenza Vaccine (#1) 2025 05/29/2012, 2010 Diabetes: Hemoglobin A1C 04/02/2025 025, 12/31/2024, 12/30/2024, Additional history exists Hepatitis B Vaccine Aged Out 10/17/2011, 10/17/2011, 07/31/2010, Additional history exists No longer eligible based on patient's age to complete this topic Pneumococcal Vaccine: Peds (0 to 5 Years) and At-Risk Patients (6 to 49 Years) Discontinued 12/22/2015, 04/29/2011 Procedures Procedure Name Priority Date/Time Associated Diagnosis Comments US GUIDED RENAL BIOPSY Routine 02/11/2025 10:47 AM EDT Other proteinuria Other acute kidney failure (HCC) HEMOGLOBIN A1C Routine 01/29/2023 9:25 AM EDT Type 2 diabetes mellitus with diabetic chronic kidney disease (HCC) Chronic kidney disease, stage 2 (mild) from Last 3 Months or Most Recently Relevant to Health Maintenance Results * US Guided Renal Biopsy (02/11/2025 10:47 AM EDT) Anatomical Region Laterality Modality Ultrasound us Claude Martinez MD IMG US PROCEDURES Fin al Result * (ABNORMAL) Hemoglobin A1c (01/29/2023 9:25 AM EDT) Hemoglobin A1C 8.0(H) (4.0-5.6) % [facility] Comment: MONITORING: In known diabetic patients, hemoglobin A1c targets should be discussed with health care provider. DIAGNOSTIC USE: The [place] Diabetes Association (ADA) and the World Health Organization (WHO) recommend the use of HbA1c to diagnose diabetes using a threshold of 6.5%. Patients who have an HbA1c between 5.7% and 6.4% are considered at increased risk for developing diabetes in the future. CAUTION: Falsely low HbA1c results may be observed in patients with hemolytic anemia, homozygous forms of abnormal hemoglobin (e.g. SS, CC, SC), , recent blood loss or hemoglobin F greater than 7%. Fructosamine may be used as an alternate test in these cases. REFERENCE: ADA: Standards of Medical Care in Diabetes 2020, The Journal of Clinical and Applied Research and Education Volume 43, Supplement 1 Testing performed or reported by [facility] Reference [employer], a Service of [facility], [address] [place] [address] Servando Shipley MD, Regulator Assembler [facility]# [id number] Blood specimen (specimen) Venous blood / Unknown 01/29/2023 9:25 AM EDT 01/29/2023 9:27 AM EDT Zeke Villatoro MD LAB BLOOD ORDERABLES Final Re sult [facility] from Last 3 Months or Most Recently Relevant to Health Maintenance Insurance [facility] Care Teams Assistant Women'S Basketball Coach Relationship Specialty Start Date End Date Polo Kay FNP [address] [place] [address] PCP - General Nurse Practitioner 11/07/20
--- OUTSIDE RECORDS SUMMARY | 2025-05-02 01:08 | XMS_ITS | Encounter Summary ---
Author Organization [facility] Address [address] [place] [address] Encounters * CPT with Medical [facility] at [facility] on 2025-04-17 { reasonForRequest : wound care , patientReports : , denies :[ Delaney Flash, circumferential delaney , Delaney reported with black tissue to the area , Open skin area after a fall with uncontrolled bleeding , Absces s/infection with streaking noted, presence of fever or without ], chiefComplaints :"Wound Care , pmh : Diabetes Mellitus Type 2, Hypertension, Stroke, Transient Ischemic Attack (TIA), Chronic Kidney Disease, Hyperlipidemia , allergies : NoKnown Drug Allergies , otherAllergies : , painAssessment : , visitOutcome : , additionalComments : 60 y.o female complains of Wound Care\nPatient's daughter calling requesting a visit to assess [...] to seek emergency care -Sathya Solorio RN } Encountered patient seated upright and conscious, seated in wheelchair, with family present. 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 Patient reports she has baseline left sided deficits secondary to a stroke suffered two years ago, but still experiences pain. Patientdenies chest pain, shortness of breath and fevers. Skin warm dry and of appropriate color for ethnicity. Head and neck, free of trauma and edema. -JVD. Breath sounds present, clear and equal bilaterally. Abdomen is soft, non-tender and non-distended.Right upper and lower extremities are free of trauma and edema, patient suffers from baseline edemain both left upper and lower extremities following the stroke, family expresses the lower left extremity is more swollen than patient???s baseline. Lower left extremity is also tender and warm to thetouch, posterior calf is non-tender, non-swollen and not hot to the touch. Peripheral pulses present throughout. [facility] [place]: wound care performed, patients wound was cleansed with sterile water, then fortifiedwith non-adhesive dressing and wrapped with gauze. 500mg of PO Keflex administered after medication???rights?? were reconciled with patient and family. [facility] [place] they will send a prescription for further treatment to a pharmacy of patient???s choice. Patient was encouraged to monitor herself for worsening swelling or pain of the lower left extremity, chest pain, shortness of breath or fevers and was encouraged to seek further medical attention, including 911 if said symptoms were to develop.Patient verbalizes understanding of the plan and states she is comfortable remaining home today. ORAL_MEDICATION, WOUND_CARE Written by Medical [facility] on 2025-04-17
--- OUTSIDE RECORDS SUMMARY | 2025-05-02 01:08 | XMS_ITS | Encounter Summary ---
Author Organization [facility] Address [address] [place] [address] Care Team Providers Care Gis Analyst Developer Name Role Phone Eliza Polo NIX Primary Care Provider +1- [phone] Encounter Details Date Type Department Care Team (Late st Contact Info) Description 07/08/[address] [facility] - Main Lab [address] [facility] [place] [phone] Lazaro Santoyo MD [address] [place] [address] Essential (primary) hypertension Social History Tobacco Use [...] 6:00 PM EST Chitra Connell RN * [place] Suicide Severity Rating Scale (Screener/Recent Self-Report) Question [...] STS ST LTG General No Ene Moffett, COUNSELOR MANAGER Note: Pt will improve cognitive linguistic function to participate and communicate in basic ADLs supervision ST STGs General No Ene Moffett, COUNSELOR MANAGER Note: Pt will participate with development [...] Associated Diagnosis Comments COMPLETE BLOOD COUNT Routine 07/08/2024 9:01 AM EST Essential (primary) hypertension documented in this encounter Results * (ABNORMAL) Complete blood count (07/08/2024 9:01 AM EST) WBC 7.2 4.8 - 10.8 K/mcL LAB HEMETOLOGY METHOD 07/08/2024 1:16 PM [facility] RBC 2.60(L) 3.80 - 4.80 M/mcL LAB HEMETOLOGY METHOD 07/08/2024 1:16 PM [facility] Hemoglobin 7.2(L) 11.5 - 16.0 g/dL LAB HEMETOLOGY METHOD 07/08/2024 1:16 PM [facility] Hematocrit 22.7(L) 35.0 - 47.0 % LAB HEMETOLOGY METHOD 07/08/2024 1:16 PM [facility] MCV 88.0 79.0 - 98.0 FL LAB HEMETOLOGY METHOD 07/08/2024 1:16 PM [facility] MCH 27.9 27.0 - 32.0 pcg LAB HEMETOLOGY METHOD 07/08/2024 1:16 PM EST [facility] MCHC 31.7(L) 32.0 - 37.0 g/dL LAB HEMETOLOGY METHOD 07/08/2024 1:16 PM [facility] RDW 13.2 11.0 - 15.0 % LAB HEMETOLOGY METHOD 07/08/2024 1:16 PM [facility] Platelets 304 130 - 400 K/mcL LAB HEMETOLOGY METHOD 07/08/2024 1:16 PM EST [facility] MPV 10.0 7.0 - 11.0 FL LAB HEMETOLOGY METHOD 07/08/2024 1:16 PM [facility] NRBC 0.0 <1.0 % LAB HEMETOLOGY METHOD 07/08/2024 1:16 PM [facility] NRBC Absolute 0.00 <0.10 K/mcL LAB HEMETOLOGY METHOD 07/08/2024 1:16 PM [facility] Blood Venous blood specimen / Unknown Venipuncture / Unknown 07/08/2024 9:01 AM EST 07/08/2024 12:12 PM EST us Lazaro Santoyo MD LAB BLOOD ORDERABLES Final Resul t [facility] [address] [place] [address], documented in this encounter Visit Diagnoses Diagnosis [...] documented as of this encounter Care Teams Gis Analyst Developer Relationship Specialty Start Date End Date Polo Kay NP [address] [place] [address] PCP - General Nurse Practitioner 12/28/24 documented as of this encounter
--- OUTSIDE RECORDS SUMMARY | 2025-05-02 01:08 | XMS_ITS | Encounter Summary ---
Author Organization [facility] Address [address] [place] [address] Care Team Providers Care Pillowcase Cutter Name Role Phone Polo Kay NP Primary Care Provider +1- [phone] Encounter Details Date Type Department Care Team (Late st Contact Info) Description 06/14/2024 Lab Requisition [facility] - Main Lab [address] [place] [phone] Lazaro Santoyo MD [address] [place] [address] Hemiplegia and hemiparesis following cerebral infarction affecting [...] STS ST LTG General No Ene Moffett, GROUNDMAN/LINEMAN Note: Pt will improve cognitive linguistic function to participate and communicate in basic ADLs supervision ST STGs General No Ene Moffett, GROUNDMAN/LINEMAN Note: Pt will participate with development of [...] Associated Diagnosis Comments COMPLETE BLOOD COUNT Routine 06/14/2024 5:47 AM EST Hemiplegia and hemiparesis following cerebral infarction affecting left dominant side (CMS/HCC) Type 2 diabetes mellitus without complications (CMS/HCC) Hypertensive crisis, unspecified BASIC METABOLIC PANEL Routine 06/14/2024 5:47 AM EST Hemiplegia and hemiparesis following cerebral infarction affecting left dominant side (CMS/HCC) Type 2 diabetes mellitus without complications (CMS/HCC) Hypertensive crisis, unspecified documented in this encounter Results * (ABNORMAL) Basic metabolic panel (06/14/2024 5:47 AM EST) Sodium 135 133 - 145 mmol/L LAB CHEMISTRY METHOD 06/14/2024 3:48 PM [facility] Potassium 4.4 3.5 - 5.5 mmol/L LAB CHEMISTRY METHOD 06/14/2024 3:48 PM [facility] Chloride 102 96 - 110 mmol/L LAB CHEMISTRY METHOD 06/14/2024 3:48 PM [facility] CO2 25 21 - 32 mmol/L LAB CHEMISTRY METHOD 06/14/2024 3:48 PM [facility] Anion Gap 8 3 - 11 LAB CHEMISTRY METHOD 06/14/2024 3:48 PM [facility] Glucose 333(H) 70 - 100 mg/dL LAB CHEMISTRY METHOD 06/14/2024 3:48 PM [facility] BUN 42(H) 5 - 25 mg/dL LAB CHEMISTRY METHOD 06/14/2024 3:48 PM [facility] Creatinine 2.31(H) 0.50 - 1.10 mg/dL LAB CHEMISTRY METHOD 06/14/2024 3:48 PM EST [facility] eGFR 24(L) >=60 mL/min/1. 73m2 LAB CHEMISTRY METHOD 06/14/2024 3:48 PM EST [facility] Comment:Calculation based on the Chronic Kidney Disease Epidemiology Collaboration (CKD-EPI) equation refit without adjustment for race. BUN/Creatinine Ratio 18.2 LAB CHEMISTRY METHOD 06/14/2024 3:48 PM [facility] Calcium 8.3(L) 8.5 - 10.5 mg/dL LAB CHEMISTRY METHOD 06/14/2024 3:48 PM [facility] Blood Venous blood specimen / Unknown Venipuncture / Unknown 06/14/2024 5:47 AM EST 06/14/2024 12:27 PM EST us Lazaro Santoyo MD LAB BLOOD ORDERABLES Final Resul t [facility] [address] [place] [address], [place] [phone] * (ABNORMAL) Complete blood count (06/14/2024 5:47 AM EST) WBC 11.9(H) 4.8 - 10.8 K/mcL LAB HEMETOLOGY METHOD 06/14/2024 2:46 PM [facility] RBC 3.20(L) 3.80 - 4.80 M/mcL LAB HEMETOLOGY METHOD 06/14/2024 2:46 PM [facility] Hemoglobin 9.2(L) 11.5 - 16.0 g/dL LAB HEMETOLOGY METHOD 06/14/2024 2:46 PM [facility] Hematocrit 28.3(L) 35.0 - 47.0 % LAB HEMETOLOGY METHOD 06/14/2024 2:46 PM [facility] MCV 89.3 79.0 - 98.0 FL LAB HEMETOLOGY METHOD 06/14/2024 2:46 PM EST [facility] MCH 29.0 27.0 - 32.0 pcg LAB HEMETOLOGY METHOD 06/14/2024 2:46 PM EST [facility] MCHC 32.5 32.0 - 37.0 g/dL LAB HEMETOLOGY METHOD 06/14/2024 2:46 PM EST [facility] RDW 13.4 11.0 - 15.0 % LAB HEMETOLOGY METHOD 06/14/2024 2:46 PM EST [facility] Platelets 274 130 - 400 K/mcL LAB HEMETOLOGY METHOD 06/14/2024 2:46 PM EST [facility] MPV 11.1(H) 7.0 - 11.0 FL LAB HEMETOLOGY METHOD 06/14/2024 2:46 PM EST [facility] NRBC 0.0 <1.0 % LAB HEMETOLOGY METHOD 06/14/2024 2:46 PM EST [facility] NRBC Absolute 0.00 <0.10 K/mcL LAB HEMETOLOGY METHOD 06/14/2024 2:46 PM [facility] Blood Venous blood specimen / Unknown Venipuncture / Unknown 06/14/2024 5:47 AM EST 06/14/2024 12:27 PM EST us Lazaro Santoyo MD LAB BLOOD ORDERABLES Final Resul t [facility] [address] [place] [address], documented in this encounter Visit Diagnoses Diagnosis [...] documented as of this encounter Care Teams Pillowcase Cutter Relationship Specialty Start Date End Date Polo Kay NP [facility] [place] [address] PCP - General Nurse Practitioner 12/28/24 documented as of this encounter
--- OUTSIDE RECORDS SUMMARY | 2025-05-02 01:08 | XMS_ITS | Encounter Summary ---
Author Organization [facility] Address [address] [place] [address] Care Team Providers Care Labor Crew Supervisor Name Role Phone Polo Kay NP Primary Care Provider +1- [phone] Encounter Details Date Type Department Care Team (Late st Contact Info) Description 06/25/2024 Lab Requisition [facility] - Main Lab [address] [place] [phone] Lazaro Santoyo MD [address] [place] [address] Hemiplegia and hemiparesis following cerebral infarction affecting [...] STS ST LTG General No Ene Moffett, COLOR SHOP HELPER Note: Pt will improve cognitive linguistic function to participate and communicate in basic ADLs supervision ST STGs General No Ene Moffett, COLOR SHOP HELPER Note: Pt will participate with development of [...] Associated Diagnosis Comments COMPLETE BLOOD COUNT Routine 06/28/2024 5:44 AM EST Hemiplegia and hemiparesis following cerebral infarction affecting left dominant side (CMS/HCC) Type 2 diabetes mellitus without complications (CMS/HCC) Hypertensive crisis, unspecified BASIC METABOLIC PANEL Routine 06/28/2024 5:44 AM EST Hemiplegia and hemiparesis following cerebral infarction affecting left dominant side (CMS/HCC) Type 2 diabetes mellitus without complications (CMS/HCC) Hypertensive crisis, unspecified documented in this encounter Results * (ABNORMAL) Basic metabolic panel (06/28/2024 5:44 AM EST) Sodium 137 133 - 145 mmol/L LAB CHEMISTRY METHOD 06/28/2024 12:23 PM [facility] Potassium 4.0 3.5 - 5.5 mmol/L LAB CHEMISTRY METHOD 06/28/2024 12:23 PM [facility] Chloride 108 96 - 110 mmol/L LAB CHEMISTRY METHOD 06/28/2024 12:23 PM [facility] CO2 19(L) 21 - 32 mmol/L LAB CHEMISTRY METHOD 06/28/2024 12:23 PM [facility] Anion Gap 10 3 - 11 LAB CHEMISTRY METHOD 06/28/2024 12:23 PM [facility] Glucose 152(H) 70 - 100 mg/dL LAB CHEMISTRY METHOD 06/28/2024 12:23 PM [facility] BUN 45(H) 5 - 25 mg/dL LAB CHEMISTRY METHOD 06/28/2024 12:23 PM [facility] Creatinine 2.21(H) 0.50 - 1.10 mg/dL LAB CHEMISTRY METHOD 06/28/2024 12:23 PM [facility] eGFR 25(L) >=60 mL/min/1. 73m2 LAB CHEMISTRY METHOD 06/28/2024 12:23 PM [facility] Comment:Calculation based on the Chronic Kidney Disease Epidemiology Collaboration (CKD-EPI) equation refit without adjustment for race. BUN/Creatinine Ratio 20.4 LAB CHEMISTRY METHOD 06/28/2024 12:23 PM [facility] Calcium 8.6 8.5 - 10.5 mg/dL LAB CHEMISTRY METHOD 06/28/2024 12:23 PM [facility] Blood Venous blood specimen / Unknown Venipuncture / Unknown 06/28/2024 5:44 AM EST 06/28/2024 11:23 AM EST us Lazaro Santoyo MD LAB BLOOD ORDERABLES Final Resul t [facility] [address] [place] [address], [place] [phone] * (ABNORMAL) Complete blood count (06/28/2024 5:44 AM EST) WBC 8.4 4.8 - 10.8 K/mcL LAB HEMETOLOGY METHOD 06/28/2024 11:40 AM [facility] RBC 2.80(L) 3.80 - 4.80 M/mcL LAB HEMETOLOGY METHOD 06/28/2024 11:40 AM [facility] Hemoglobin 8.0(L) 11.5 - 16.0 g/dL LAB HEMETOLOGY METHOD 06/28/2024 11:40 AM [facility] Hematocrit 25.1(L) 35.0 - 47.0 % LAB HEMETOLOGY METHOD 06/28/2024 11:40 AM [facility] MCV 90.9 79.0 - 98.0 FL LAB HEMETOLOGY METHOD 06/28/2024 11:40 AM EST [facility] MCH 29.0 27.0 - 32.0 pcg LAB HEMETOLOGY METHOD 06/28/2024 11:40 AM [facility] MCHC 31.9(L) 32.0 - 37.0 g/dL LAB HEMETOLOGY METHOD 06/28/2024 11:40 AM [facility] RDW 13.5 11.0 - 15.0 % LAB HEMETOLOGY METHOD 06/28/2024 11:40 AM [facility] Platelets 284 130 - 400 K/mcL LAB HEMETOLOGY METHOD 06/28/2024 11:40 AM [facility] MPV 10.1 7.0 - 11.0 FL LAB HEMETOLOGY METHOD 06/28/2024 11:40 AM [facility] NRBC 0.0 <1.0 % LAB HEMETOLOGY METHOD 06/28/2024 11:40 AM [facility] NRBC Absolute 0.00 <0.10 K/mcL LAB HEMETOLOGY METHOD 06/28/2024 11:40 AM [facility] Blood Venous blood specimen / Unknown Venipuncture / Unknown 06/28/2024 5:44 AM EST 06/28/2024 11:23 AM EST us Lazaro Santoyo MD LAB BLOOD ORDERABLES Final Resul t [facility] [address] [place] [address], documented in this encounter Visit Diagnoses Diagnosis [...] documented as of this encounter Care Teams Labor Crew Supervisor Relationship Specialty Start Date End Date Polo Kay NP [address] [place] [address] PCP - General Nurse Practitioner 12/28/24 documented as of this encounter
--- OUTSIDE RECORDS SUMMARY | 2025-05-02 01:08 | XMS_ITS | Encounter Summary ---
Author Organization [facility] Address [address] [place] [address] Care Team Providers Care Psychiatric Lpn Name Role Phone Eliza Polo DINAH Primary Care Provider +1- [phone] Encounter Details Date Type Department Care Team (Late st Contact Info) Description 06/11/2024 Lab Requisition [facility] - Main Lab [address] [place] [phone] Lazaro Santoyo MD [address] [place] [address] Type 2 diabetes mellitus without complications (CMS/HCC V24, CMS/HCC V28); Essential (primary) hypertension; Weakness Social History Tobacco [...] STS ST LTG General No Ene Moffett, BRIM ROUNDER Note: Pt will improve cognitive linguistic function to participate and communicate in basic ADLs supervision ST STGs General No Ene Moffett, BRIM ROUNDER Note: Pt will participate with development of [...] Diagnosis Comments CBC WITH AUTO DIFFERENTIAL Routine 06/11/2024 8:25 AM EST Type 2 diabetes mellitus without complications (CMS/HCC) Essential (primary) hypertension Weakness CBC AND DIFFERENTIAL Routine 06/11/2024 8:25 AM EST Type 2 diabetes mellitus without complications (CMS/HCC) Essential (primary) hypertension Weakness HEMOGLOBIN A1C Routine 06/11/2024 8:25 AM EST Type 2 diabetes mellitus without complications (CMS/HCC) Essential (primary) hypertension Weakness COMPREHENSIVE METABOLIC PANEL Routine 06/11/2024 8:25 AM EST Type 2 diabetes mellitus without complications (CMS/HCC) Essential (primary) hypertension Weakness documented in this encounter Results * (ABNORMAL) CBC auto differential (06/11/2024 8:25 AM EST) WBC 8.9 4.8 - 10.8 K/mcL LAB HEMETOLOGY METHOD 06/11/2024 12:31 PM [facility] RBC 3.60(L) 3.80 - 4.80 M/mcL LAB HEMETOLOGY METHOD 06/11/2024 12:31 PM [facility] Hemoglobin 10.2(L) 11.5 - 16.0 g/dL LAB HEMETOLOGY METHOD 06/11/2024 12:31 PM [facility] Hematocrit 31.0(L) 35.0 - 47.0 % LAB HEMETOLOGY METHOD 06/11/2024 12:31 PM [facility] MCV 87.3 79.0 - 98.0 FL LAB HEMETOLOGY METHOD 06/11/2024 12:31 PM [facility] MCH 28.7 27.0 - 32.0 pcg LAB HEMETOLOGY METHOD 06/11/2024 12:31 PM [facility] MCHC 32.9 32.0 - 37.0 g/dL LAB HEMETOLOGY METHOD 06/11/2024 12:31 PM [facility] RDW 13.2 11.0 - 15.0 % LAB HEMETOLOGY METHOD 06/11/2024 12:31 PM [facility] Platelets 269 130 - 400 K/mcL LAB HEMETOLOGY METHOD 06/11/2024 12:31 PM [facility] MPV 10.7 7.0 - 11.0 FL LAB HEMETOLOGY METHOD 06/11/2024 12:31 PM [facility] NRBC 0.0 <1.0 % LAB HEMETOLOGY METHOD 06/11/2024 12:31 PM [facility] NRBC Absolute 0.00 <0.10 K/mcL LAB HEMETOLOGY METHOD 06/11/2024 12:31 PM [facility] Neutrophils Relative 75.9 % LAB HEMETOLOGY METHOD 06/11/2024 12:31 PM [facility] Lymphocytes Relative 14.9 % LAB HEMETOLOGY METHOD 06/11/2024 12:31 PM [facility] Monocytes Relative 5.8 % LAB HEMETOLOGY METHOD 06/11/2024 12:31 PM [facility] Eosinophils Relative 2.9 % LAB HEMETOLOGY METHOD 06/11/2024 12:31 PM [facility] Basophils Relative 0.2 % LAB HEMETOLOGY METHOD 06/11/2024 12:31 PM [facility] Immature Granulocytes Relative 0.3 % LAB HEMETOLOGY METHOD 06/11/2024 12:31 PM [facility] Neutrophils Absolute 6.74 1.50 - 7.00 K/mcL LAB HEMETOLOGY METHOD 06/11/2024 12:31 PM [facility] Lymphocytes Absolute 1.33 1.00 - 5.00 K/[facility] LAB HEMETOLOGY METHOD 06/11/2024 12:31 PM EST [facility] Monocytes Absolute 0.52 0.20 - 1.00 K/[facility] LAB HEMETOLOGY METHOD 06/11/2024 12:31 PM EST [facility] Eosinophils Absolute 0.26 0.00 - 0.50 K/[facility] LAB HEMETOLOGY METHOD 06/11/2024 12:31 PM EST [facility] Basophils Absolute 0.02 0.00 - 0.20 K/[facility] LAB HEMETOLOGY METHOD 06/11/2024 12:31 PM EST [facility] Immature Granulocytes Absolute 0.03 0.00 - 0.03 K/[facility] LAB HEMETOLOGY METHOD 06/11/2024 12:31 PM EST [facility] Blood Venous blood specimen / Unknown Venipuncture / Unknown 06/11/2024 8:25 AM EST 06/11/2024 11:45 AM EST us Lazaro Santoyo MD LAB BLOOD ORDERABLES Final Resul t [facility] [address] [place] [address], * (ABNORMAL) Hemoglobin A1c (06/11/2024 8:25 AM EST) Hemoglobin A1C 10.0(H) <6.5 % LAB CHEMISTRY METHOD 06/11/2024 9:43 PM EST [facility] Mean Bld Glu Estim. 240 mg/dL LAB CHEMISTRY METHOD 06/11/2024 9:43 PM EST [facility] Blood Venous blood specimen / Unknown Venipuncture / Unknown 06/11/2024 8:25 AM EST 06/11/2024 11:45 AM EST us Lazaro Santoyo MD LAB BLOOD ORDERABLES Final Resul t [facility] [address] [place] [address], * (ABNORMAL) Comprehensive metabolic panel (06/11/2024 8:25 AM EST) Sodium 135 133 - 145 mmol/L LAB CHEMISTRY METHOD 06/11/2024 3:49 PM EST [facility] Potassium 3.9 3.5 - 5.5 mmol/L LAB CHEMISTRY METHOD 06/11/2024 3:49 PM [facility] Chloride 101 96 - 110 mmol/L LAB CHEMISTRY METHOD 06/11/2024 3:49 PM [facility] CO2 26 21 - 32 mmol/L LAB CHEMISTRY METHOD 06/11/2024 3:49 PM [facility] Anion Gap 8 3 - 11 LAB CHEMISTRY METHOD 06/11/2024 3:49 PM [facility] Glucose 90 70 - 100 mg/dL LAB CHEMISTRY METHOD 06/11/2024 3:49 PM [facility] BUN 32(H) 5 - 25 mg/dL LAB CHEMISTRY METHOD 06/11/2024 3:49 PM [facility] Creatinine 1.79(H) 0.50 - 1.10 mg/dL LAB CHEMISTRY METHOD 06/11/2024 3:49 PM [facility] eGFR 32(L) >=60 mL/min/1. 73m2 LAB CHEMISTRY METHOD 06/11/2024 3:49 PM [facility] Comment:Calculation based on the Chronic Kidney Disease Epidemiology Collaboration (CKD-EPI) equation refit without adjustment for race. BUN/Creatinine Ratio 17.9 LAB CHEMISTRY METHOD 06/11/2024 3:49 PM [facility] Calcium 8.5 8.5 - 10.5 mg/dL LAB CHEMISTRY METHOD 06/11/2024 3:49 PM [facility] AST (SGOT) 23 10 - 42 unit/L LAB CHEMISTRY METHOD 06/11/2024 3:49 PM [facility] ALT (SGPT) 22 10 - 60 unit/L LAB CHEMISTRY METHOD 06/11/2024 3:49 PM [facility] Alkaline Phosphatase 93 42 - 121 unit/L LAB CHEMISTRY METHOD 06/11/2024 3:49 PM [facility] Total Protein 5.8(L) 6.0 - 8.0 g/dL LAB CHEMISTRY METHOD 06/11/2024 3:49 PM [facility] Albumin 2.8(L) 3.2 - 5.0 g/dL LAB CHEMISTRY METHOD 06/11/2024 3:49 PM [facility] Total Bilirubin 0.3 0.0 - 1.4 mg/dL LAB CHEMISTRY METHOD 06/11/2024 3:49 PM [facility] Blood Venous blood specimen / Unknown Venipuncture / Unknown 06/11/2024 8:25 AM EST 06/11/2024 11:45 AM EST us Lazaro Santoyo MD LAB BLOOD ORDERABLES Final Resul t [facility] [address] [place] [address], documented in this encounter Visit Diagnoses Diagnosis Type 2 diabetes mellitus without complications (CMS/HCC V24, CMS/HCC V28) Essential (primary) hypertension Unspecified essential hypertension Weakness [...] documented as of this encounter Care Teams Psychiatric Lpn Relationship Specialty Start Date End Date Polo Kya NP [address] [place] [address] PCP - General Nurse Practitioner 12/28/24 documented as of this encounter
--- OUTSIDE RECORDS SUMMARY | 2025-05-02 01:08 | XMS_ITS | Data Portability ---
Author Organization [place] - [facility], Allergy Address [address] [place] [phone] Care Team Providers Care Speech Correction Consultant Name Role Phone [facility] Primary Care Provider Assessment Encounter Date Assessment Date Assessment LastModified by Organization Details LastModified Time 2024 2024 Patient has a right neck mass that I recommend we obtain tissue sampling. Given its location I would like to have ultrasound-guid ed needle aspiration biopsy performed at a nearby radiology center. My office will assist in arranging for this procedure. We reviewed the potential risks not limited to bleeding, numbness, swelling and facial weakness. We discussed the potential diagnoses including malignancy, benign process, insufficient specimen or non-diagnostic. Typically pathology results will become available within the next week. We may review results and develop a treatment plan with an in person visit. [email or web address] Not available 2024 13:56:48 Plan of Treatment Reminders Order Date Submit Date Provider Last Modified By Organization Details Last Modified Time Details Appointments None recorded. Lab None recorded. Referral None recorded. Procedures fine needle aspiration ; with imaging guidance (PROC) - US Guided FNA, r/o malignancy , Radiology center 2023 024 [facility], [address] [facility], [place], [address], 16:48:47 Surgeries None recorded. Imaging None recorded. Medication Orders None recorded. Patient TargetsNo targets recorded. Patient InstructionsNo instructions recorded. Reason for Referral None Reported. Results Created Date Observation Date Name Description Value Unit Range Abnormal Flag Note LastModifiedBy Organization Detail LastModifiedTime 01/07/20 24 07/09/2020 imagi ng/di agnos tic resul t No observ ation record ed. [email or web address] Available 01:04:41 01/07/2007/12/2019 imagi ng/di agnos tic resul t No observ ation record ed. [email or web address] Available 01:04:43 01/07/2008/28/2020 imagi ng/di agnos tic resul t No observ ation record ed. [email or web address] Available 01:05:38 01/07/2004/21/2019 imagi ng/di agnos tic resul t No observ ation record ed. [email or web address] Available 01:05:42 01/07/2004/21/2019 imagi ng/di agnos tic resul t No observ ation record ed. [email or web address] Available 01:05:45 Result Notes None recorded. 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 Medical Equipment None Reported. Allergies No known drug allergies Medications Name Sig Start Date Stop Date Status Note LastModified by Organization Details LastModified Time nifedipine ER 30 mg tablet,exte nded release 24 hr active Not Available Not Available Not Available quetiapine 25 mg tablet TAKE ONE-HALF - ONE tablet daily NEEDED FOR ANXIETY active Not Available Not Available No t Available atorvastati n 80 mg tablet TAKE ONE TABLET BY MOUTH nightly AT BEDTIME active Not Available Not Available No t Available carvedilol 6.25 mg tablet active Not Available Not Available Not Available tizanidine 2 mg tablet active Not Available Not Available Not Available hydralazine 25 mg tablet active Not Available Not Available Not Available metronidazo le 500 mg tablet active Not Available Not Available Not Available amlodipine 5 mg tablet TAKE ONE TABLET BY MOUTH ONCE daily active Not Available Not Available No t Available ciprofloxac in 500 mg tablet active Not Available Not Available Not Available ropinirole 0.25 mg tablet active Not Available Not Available Not Available baclofen 10 mg tablet TAKE 0.5 TABLET BY MOUTH THREE TIMES DAILY active Not Available Not Available No t Available pantoprazol e 40 mg tablet,ryan yed release TAKE ONE TABLET BY MOUTH ONCE daily active Not Available Not Available No t Available dexamethaso ne 4 mg tablet 01/22 completed Not Available Not Available Not Available gabapentin 300 mg capsule TAKE ONE CAPSULE BY MOUTH THREE TIMES DAILY active Not Available Not Available No t Available furosemide 20 mg tablet active Not Available Not Available Not Available ergocalcife rol (vitamin D2) 1,250 mcg (50,000 unit) capsule 01/22 completed Not Available Not Available Not Available insulin lispro (U-100) 100 unit/mL subcutaneou s solution active Not Available Not Available N ot Available labetalol 100 mg tablet TAKE ONE TABLET BY MOUTH TWICE DAILY active Not Available Not Available No t Available losartan 100 mg tablet TAKE ONE TABLET BY MOUTH EVERY MORNING FOR blood pressure active Not Available Not Available No t Available doxycycline hyclate 100 mg tablet 01/22 completed Not Available Not Available Not Available calcitriol 0.25 mcg capsule 01/22 completed Not Available Not Available Not Available buspirone 15 mg tablet TAKE ONE TABLET BY MOUTH THREE TIMES DAILY active Not Available Not Available No t Available duloxetine 30 mg capsule,del ayed release 01/22 completed Not Available Not Available Not Available [...] Easy Touch Alcohol Prep Pads USE TO clean INTO THE SKIN UP TO FOUR TIMES DAILY active Not Available Not Available No t Available dapaglifloz in propanediol 10 mg tablet TAKE ONE TABLET BY MOUTH daily active Not Available Not Available No t Available Accu-Chek Guide test strips 01/22 completed Not Available Not Available Not Available Dexcom G6 Sensor device active Not Available Not Available Not Available Dexcom G6 Transmitter device active Not Available Not Available Not Available Lokelma 10 gram oral powder packet active Not Available Not Available Not Available Baqsimi 3 mg/actuatio n nasal spray SPRAY ONE device into one nostril NEEDED FOR SEVERE hypoglyce petra active Not Available Not Available No t Available Omnipod 5 G6 Pods (Gen 5) subcutaneou s cartridge 01/22 completed Not Available Not Available Not Available Vitals None Recorded Social History None recorded. Functional Status None recorded. Mental Status None recorded. Family History Nothing Reported. Medical History Condition Response Diabetes Y Hyperlipidemia Y Stroke Y Hypertension Y Anxiety Y Depression Y Kidney Disease Y Gynecological HistoryNo gynecological history recorded. Obstetrics History GPAL:G 0 P 0 0 0 0 Past Encounters Encounter ID Performer Location Encounter Start Date Encounter Closed Date Diagnosis/Indication Diagnosis SNOMED-CT Code Diagnosis ICD10 Code Diagnosis IMO Codes Diagnosis Note [id number] LAN WEST MD [facility] [address] [phone] 2024 13:24:37 2024 13:57:25 Neoplasm of parotid gland 382821754 D49.0 R59.0 Right parotid tail. Health Concerns Section Related Observation LastModified by Organization Detai ls LastModified Time None Recorded Concern Status LastModified by Organization Details LastModified Time None Recorded Advance Directives Directive None Recorded Payers Insurance Date Sequence Insurance Name Policy Number Policy Ceja Covered Member ID Ceja Member ID Guarantor Name 02/16/2024 2 [place] [facility] Kisha Alvarez [id number] Kisha Vickers 02/16/2024 1 MEDICARE B[place] [employer] Kisha Vickers [id number] KCecy Vickers Notes Date Note Type Note Provider Name and Address Organization Details Recorded Time 2024 text/html ROS as noted in the HPI Right parotid mass04/21/[address] [facility] - incidental finding of right parotid tail with 2cm mass, changes of a CVA 08/25/20 right parotid FNA non diagnostic - advised US FNA09/19/2020 Pt no showed her U/S fna at [facility] 11/21/2023 CT neck noncontrast at [facility] shows right parotid gland mass measuring 21 x 15 x 24 mm. 12/01/23 CVA, just got out of rehab earlier today with home PT LAN WEST MD [address] [place] [address], [place], [phone], [place] [facility] 2024 13:57:27 OBGyn Episode No OBEpisode recorded.
--- OUTSIDE RECORDS SUMMARY | 2025-05-02 01:08 | XMS_ITS | Encounter Summary ---
Author Organization [facility] Address [address] [place] [address] Care Team Providers Care Rolloff Truck Driver Name Role Phone Polo Kay NP Primary Care Provider [phone]- [phone] Encounter Details Date Type Department Care Team (Late st Contact Info) Description 09/14/2024 Lab Requisition [facility] - Main Lab [address] [facility] [place] [phone] Lazaro Santoyo MD [address] [place] [address] Chronic kidney disease, stage 3 unspecified (CMS/HCC [...] care for your loved ones. For example, early childhood director or elderly care for an older [...] [facility] No Ene Moffett, SOLID WASTE LANDFILL TECHNICIAN Note: Pt will improve cognitive linguistic function to participate and communicate in basic ADLs supervision ST [facility] General No Ene Moffett, SOLID WASTE LANDFILL TECHNICIAN Note: Pt will participate with development of [...] Associated Diagnosis Comments BASIC METABOLIC PANEL Routine 09/14/2024 8:09 AM EDT Chronic kidney disease, stage 3 unspecified (CMS/HCC V24, CMS/HCC V28) documented in this encounter Results * (ABNORMAL) Basic metabolic panel (09/14/2024 8:09 AM EDT) Sodium 140 133 - 145 mmol/L LAB CHEMISTRY METHOD 09/14/2024 12:35 PM EDT [facility] Potassium 4.1 3.5 - 5.5 mmol/L LAB CHEMISTRY METHOD 09/14/2024 12:35 PM [facility] Chloride 106 96 - 110 mmol/L LAB CHEMISTRY METHOD 09/14/2024 12:35 PM [facility] CO2 22 21 - 32 mmol/L LAB CHEMISTRY METHOD 09/14/2024 12:35 PM [facility] Anion Gap 12(H) 3 - 11 LAB CHEMISTRY METHOD 09/14/2024 12:35 PM [facility] Glucose 156(H) 70 - 100 mg/dL LAB CHEMISTRY METHOD 09/14/2024 12:35 PM [facility] BUN 48(H) 5 - 25 mg/dL LAB CHEMISTRY METHOD 09/14/2024 12:35 PM [facility] Creatinine 3.50(H) 0.50 - 1.10 mg/dL LAB CHEMISTRY METHOD 09/14/2024 12:35 PM [facility] eGFR 14(L) >=60 mL/min/1. 73m2 LAB CHEMISTRY METHOD 09/14/2024 12:35 PM [facility] Comment:Calculation based on the Chronic Kidney Disease Epidemiology Collaboration (CKD-EPI) equation refit without adjustment for race. BUN/Creatinine Ratio 13.7 LAB CHEMISTRY METHOD 09/14/2024 12:35 PM [facility] Calcium 8.3(L) 8.5 - 10.5 mg/dL LAB CHEMISTRY METHOD 09/14/2024 12:35 PM [facility] Blood Venous blood specimen / Unknown Venipuncture / Unknown 09/14/2024 8:09 AM EDT 09/14/2024 9:36 AM EDT us Lazaro Santoyo MD LAB BLOOD ORDERABLES Final Resul t [facility] [address] [place], [place] [address] [phone] documented in this encounter Visit Diagnoses Diagnosis Chronic kidney disease, stage 3 unspecified ([facility] V24, [facility] V28) documented in this encounter Additional Health [...] documented as of this encounter Care Teams Rolloff Truck Driver Relationship Specialty Start Date End Date oPlo Kay NP [address] [place] [address] PCP - General Nurse Practitioner 12/28/24 documented as of this encounter
--- OUTSIDE RECORDS SUMMARY | 2025-05-02 01:08 | XMS_ITS | Encounter Summary ---
Author Organization [facility] Address [address] [place] [address] Care Team Providers Care Opera Singer Name Role Phone Eliza Polo DINAH Primary Care Provider +1- [phone] Encounter Details Date Type Department Care Team (Late st Contact Info) Description 07/14/2024 Lab Requisition [facility] - Main Lab [address] [facility] [place] [phone] Lazaro Santoyo MD [address] [place] [address] Pemphigoid, unspecified (CMS/HCC V28) Social History Tobacco Use Types Packs/Day [...] [facility] General No Ene Moffett, PHY THERAPIST Note: Pt will improve cognitive linguistic function to participate and communicate in basic ADLs supervision ST [facility] General No Ene Moffett, PHY THERAPIST Note: Pt will participate with development [...] Associated Diagnosis Comments COMPLETE BLOOD COUNT Routine 07/14/2024 7:17 AM EST Pemphigoid, unspecified BASIC METABOLIC PANEL Routine 07/14/2024 7:17 AM EST Pemphigoid, unspecified documented in this encounter Results * (ABNORMAL) Basic metabolic panel (07/14/2024 7:17 AM EST) Sodium 137 133 - 145 mmol/L LAB CHEMISTRY METHOD 07/14/2024 11:55 AM [facility] Potassium 4.0 3.5 - 5.5 mmol/L LAB CHEMISTRY METHOD 07/14/2024 11:55 AM [facility] Chloride 106 96 - 110 mmol/L LAB CHEMISTRY METHOD 07/14/2024 11:55 AM [facility] CO2 18(L) 21 - 32 mmol/L LAB CHEMISTRY METHOD 07/14/2024 11:55 AM [facility] Anion Gap 13(H) 3 - 11 LAB CHEMISTRY METHOD 07/14/2024 11:55 AM [facility] Glucose 48(L) 70 - 100 mg/dL LAB CHEMISTRY METHOD 07/14/2024 11:55 AM [facility] Comment:Results verified by repeat testing BUN 48(H) 5 - 25 mg/dL LAB CHEMISTRY METHOD 07/14/2024 11:55 AM [facility] Creatinine 1.98(H) 0.50 - 1.10 mg/dL LAB CHEMISTRY METHOD 07/14/2024 11:55 AM [facility] eGFR 28(L) >=60 mL/min/1. 73m2 LAB CHEMISTRY METHOD 07/14/2024 11:55 AM [facility] Comment:Calculation based on the Chronic Kidney Disease Epidemiology Collaboration (CKD-EPI) equation refit without adjustment for race. BUN/Creatinine Ratio 24.2 LAB CHEMISTRY METHOD 07/14/2024 11:55 AM [facility] Calcium 8.2(L) 8.5 - 10.5 mg/dL LAB CHEMISTRY METHOD 07/14/2024 11:55 AM [facility] Blood Venous blood specimen / Unknown Venipuncture / Unknown 07/14/2024 7:17 AM EST 07/14/2024 9:07 AM EST us Lazaro Santoyo MD LAB BLOOD ORDERABLES Final Resul t [facility] [address] [place] [address], [place] [phone] * (ABNORMAL) Complete blood count (07/14/2024 7:17 AM EST) WBC 10.0 4.8 - 10.8 K/mcL LAB HEMETOLOGY METHOD 07/14/2024 11:09 AM [facility] RBC 2.40(L) 3.80 - 4.80 M/mcL LAB HEMETOLOGY METHOD 07/14/2024 11:09 AM [facility] Hemoglobin 6.7(L) 11.5 - 16.0 g/dL LAB HEMETOLOGY METHOD 07/14/2024 11:09 AM [facility] Hematocrit 21.3(L) 35.0 - 47.0 % LAB HEMETOLOGY METHOD 07/14/2024 11:09 AM [facility] MCV 89.5 79.0 - 98.0 FL LAB HEMETOLOGY METHOD 07/14/2024 11:09 AM [facility] MCH 28.2 27.0 - 32.0 pcg LAB HEMETOLOGY METHOD 07/14/2024 11:09 AM [facility] MCHC 31.5(L) 32.0 - 37.0 g/dL LAB HEMETOLOGY METHOD 07/14/2024 11:09 AM EST [facility] RDW 13.2 11.0 - 15.0 % LAB HEMETOLOGY METHOD 07/14/2024 11:09 AM EST [facility] Platelets 369 130 - 400 K/mcL LAB HEMETOLOGY METHOD 07/14/2024 11:09 AM EST [facility] MPV 10.0 7.0 - 11.0 FL LAB HEMETOLOGY METHOD 07/14/2024 11:09 AM EST [facility] NRBC 0.0 <1.0 % LAB HEMETOLOGY METHOD 07/14/2024 11:09 AM [facility] NRBC Absolute 0.00 <0.10 K/mcL LAB HEMETOLOGY METHOD 07/14/2024 11:09 AM [facility] Blood Venous blood specimen / Unknown Venipuncture / Unknown 07/14/2024 7:17 AM EST 07/14/2024 9:07 AM EST us Lazaro Santoyo MD LAB BLOOD ORDERABLES Final Resul t [facility] [address] [place] [address], documented in this encounter Visit Diagnoses Diagnosis Pemphigoid, unspecified (CMS/[facility] V28) documented in this encounter [...] documented as of this encounter Care Teams Opera Singer Relationship Specialty Start Date End Date Polo Kay NP [facility] [place] [address] PCP - General Nurse Practitioner 12/28/24 documented as of this encounter
--- OUTSIDE RECORDS SUMMARY | 2025-05-02 01:08 | XMS_ITS | Encounter Summary ---
Author Organization [facility] Address [address] [place] [address] Care Team Providers Care Client Engagement Specialist Name Role Phone Polo Kay NP Primary Care Provider +1- [phone] Encounter Details Date Type Department Care Team (Late st Contact Info) Description 07/01/2024 Lab Requisition [facility] - Main Lab [address] [facility] [place] [phone] Lazaro Santoyo MD [address] [place] [address] Dysuria Social History Tobacco Use Types Packs/Day Years [...] [facility] General No Ene Moffett, MODERN DANCER Note: Pt will improve cognitive linguistic function to participate and communicate in basic ADLs supervision ST [facility] General No Ene Moffett, MODERN DANCER Note: Pt will participate with development of [...] Procedure Name Priority Date/Time Associated Diagnosis Comments URINALYSIS WITH REFLEX MICROSCOPIC Routine 07/01/2024 6:00 AM EST Dysuria URINALYSIS WITH REFLEX MICROSCOPIC Routine 07/01/2024 6:00 AM EST Dysuria CULTURE URINE Routine 07/01/2024 6:00 AM EST Dysuria documented in this encounter Results * (ABNORMAL) Urinalysis with reflex microscopic (07/01/2024 6:00 AM EST) Specific [place] Urine 1.010 1.003 - 1.030 LAB URINALYSIS - AUTOMATED METHOD 07/01/2024 11:15 AM [facility] pH, Urine 5.5 5.0 - 8.0 pH LAB URINALYSIS - AUTOMATED METHOD 07/01/2024 11:15 AM [facility] Leukocytes, Urine Moderate(A) Negative LAB URINALYSIS - AUTOMATED METHOD 07/01/2024 11:15 AM [facility] Nitrite, Urine Negative Negative LAB URINALYSIS - AUTOMATED METHOD 07/01/2024 11:15 AM [facility] Protein, Urine 300(A) <=Trace mg/dL LAB URINALYSIS - AUTOMATED METHOD 07/01/2024 11:15 AM [facility] Glucose, Urine Negative Negative mg/dL LAB URINALYSIS - AUTOMATED METHOD 07/01/2024 11:15 AM [facility] Ketones, Urine Negative Negative mg/dL LAB URINALYSIS - AUTOMATED METHOD 07/01/2024 11:15 AM [facility] Urobilinogen , Urine 0.2 0.2 - 1.0 mg/dL LAB URINALYSIS - AUTOMATED METHOD 07/01/2024 11:15 AM [facility] Bilirubin, Urine Negative Negative LAB URINALYSIS - AUTOMATED METHOD 07/01/2024 11:15 AM [facility] Blood, Urine Negative Negative LAB URINALYSIS - AUTOMATED METHOD 07/01/2024 11:15 AM [facility] RBC, Urine 2.6 0 - 4 /HPF LAB URINALYSIS - AUTOMATED METHOD 07/01/2024 11:15 AM [facility] WBC, Urine 73.6(H) 0 - 4 /HPF LAB URINALYSIS - AUTOMATED METHOD 07/01/2024 11:15 AM [facility] Squamous Epithelial, Urine 27 0 - 60 /LPF LAB URINALYSIS - AUTOMATED METHOD 07/01/2024 11:15 AM [facility] Bacteria, Urine Many(A) Negative /HPF LAB URINALYSIS - AUTOMATED METHOD 07/01/2024 11:15 AM [facility] Hyaline Casts, Urine 0.8 0 - 3 /LPF LAB URINALYSIS - AUTOMATED METHOD 07/01/2024 11:15 AM [facility] Urine Urine specimen obtained by clean catch procedure / Unknown 07/01/2024 6:00 AM EST 07/01/2024 10:53 AM EST Lazaro Santoyo MD LAB URINE ORDERABLES Final Resul t [facility] [address] [place] [address], * (ABNORMAL) Culture urine (07/01/2024 6:00 AM EST) Culture, Urine 50,000-100,000 CFU/mL Escherichia coli(A) TOVA 07/03/2024 10:30 AM [facility] Urine Urine specimen obtained by clean catch procedure / Unknown 07/01/2024 6:00 AM EST 07/01/2024 10:53 AM EST Narrative Organism Antibiotic Method Susceptibility Escherichia coli Amoxicillin/Clavulanate TOVA 8 ug/ml: Susceptible Escherichia coli Ampicillin/Sulbactam TOVA 16 ug/ml: Intermediate Escherichia coli Piperacillin/Tazobactam TOVA <=4 ug/ml: Susceptible Escherichia coli Cefazolin (Urine) TOVA 8 ug/ml: Susceptible Escherichia coli Cefoxitin TOVA 8 ug/ml: Susceptible Escherichia coli Ceftazidime TOVA <=0.5 ug/ml: Susceptible Escherichia coli Ceftriaxone TOVA <=0.25 ug/ml: Susceptible Escherichia coli Cefepime TOVA <=0.12 ug/ml: Susceptible Escherichia coli Meropenem TOVA <=0.25 ug/ml: Susceptible Escherichia coli Amikacin TOVA 2 ug/ml: Susceptible Escherichia coli Gentamicin TOVA <=1 ug/ml: Susceptible Escherichia coli Ciprofloxacin TOVA <=0.06 ug/ml: Susceptible Escherichia coli Levofloxacin TOVA <=0.12 ug/ml: Susceptible Escherichia coli Nitrofurantoin TOVA <=16 ug/ml: Susceptible Escherichia coli Trimethoprim/Sulfamethoxazole TOVA <=20 ug/ml: Susceptible us Lazaro Santoyo MD LAB MICROBIOLOGY - GENERAL ORDER CHRISTINE Final Result Performing Organization Address City/State/RUST Co de Phone Number [facility] [address] [place] [address], documented in this encounter Visit Diagnoses Diagnosis Dysuria documented in this encounter Additional Health Concerns [...] documented as of this encounter Care Teams Client Engagement Specialist Relationship Specialty Start Date End Date Polo Kay NP [address] [place] [address] PCP - General Nurse Practitioner 12/28/24 documented as of this encounter
--- OUTSIDE RECORDS SUMMARY | 2025-05-02 01:08 | XMS_ITS | Encounter Summary ---
Author Organization [facility] Address [address] [place] [address] Care Team Providers Care Propagator Name Role Phone Polo Kay NP Primary Care Provider +1- [phone] Encounter Details Date Type Department Care Team (Late st Contact Info) Description 06/23/2024 Lab Requisition [facility] - Main Lab [address] [facility] [place] [phone] Lazaro Santoyo MD [address] [place] [address] Dehydration Social History Tobacco Use Types Packs/Day [...] STS ST LTG General No Ene Moffett, HEAD INSULATION BOARD SAW OPERATOR Note: Pt will improve cognitive linguistic function to participate and communicate in basic ADLs supervision ST STGs General No Ene Moffett, HEAD INSULATION BOARD SAW OPERATOR Note: Pt will participate with development of [...] Associated Diagnosis Comments BASIC METABOLIC PANEL Routine 06/24/2024 5:18 AM EST Dehydration documented in this encounter Results * (ABNORMAL) Basic metabolic panel (06/24/2024 5:18 AM EST) Sodium 133 133 - 145 mmol/L LAB CHEMISTRY METHOD 06/24/2024 9:43 AM [facility] Potassium 4.5 3.5 - 5.5 mmol/L LAB CHEMISTRY METHOD 06/24/2024 9:43 AM [facility] Chloride 104 96 - 110 mmol/L LAB CHEMISTRY METHOD 06/24/2024 9:43 AM [facility] CO2 23 21 - 32 mmol/L LAB CHEMISTRY METHOD 06/24/2024 9:43 AM [facility] Anion Gap 6 3 - 11 LAB CHEMISTRY METHOD 06/24/2024 9:43 AM [facility] Glucose 86 70 - 100 mg/dL LAB CHEMISTRY METHOD 06/24/2024 9:43 AM [facility] BUN 49(H) 5 - 25 mg/dL LAB CHEMISTRY METHOD 06/24/2024 9:43 AM [facility] Creatinine 2.05(H) 0.50 - 1.10 mg/dL LAB CHEMISTRY METHOD 06/24/2024 9:43 AM [facility] eGFR 27(L) >=60 mL/min/1. 73m2 LAB CHEMISTRY METHOD 06/24/2024 9:43 AM [facility] Comment:Calculation based on the Chronic Kidney Disease Epidemiology Collaboration (CKD-EPI) equation refit without adjustment for race. BUN/Creatinine Ratio 23.9 LAB CHEMISTRY METHOD 06/24/2024 9:43 AM [facility] Calcium 8.3(L) 8.5 - 10.5 mg/dL LAB CHEMISTRY METHOD 06/24/2024 9:43 AM [facility] Blood Venous blood specimen / Unknown Venipuncture / Unknown 06/24/2024 5:18 AM EST 06/24/2024 7:57 AM EST Lazaro Santoyo MD LAB BLOOD ORDERABLES Final Resul t [facility] [address] [place] [address], documented in this encounter Visit Diagnoses Diagnosis [...] documented as of this encounter Care Teams Propagator Relationship Specialty Start Date End Date Polo Kay NP [address] [place] [address] PCP - General Nurse Practitioner 12/28/24 documented as of this encounter
--- OUTSIDE RECORDS SUMMARY | 2025-05-02 01:08 | XMS_ITS | Encounter Summary ---
Author Organization [facility] Address [address] [place] [address] Care Team Providers Care Chief Engineer Waterworks Name Role Phone Polo Kay NP Primary Care Provider +1- [phone] Encounter Details Date Type Department Care Team (Late st Contact Info) Description 06/16/2024 Lab Requisition [facility] - Main Lab 299 [facility] [place] [phone] Lazaro Santoyo MD [address] [place] [address] Essential (primary) hypertension; Hypertensive crisis, unspecified Social [...] STS ST LTG General No Ene Moffett, PRACTICING MD ANESTHESIOLOGIST Note: Pt will improve cognitive linguistic function to participate and communicate in basic ADLs supervision ST STGs General No Ene Moffett, PRACTICING MD ANESTHESIOLOGIST Note: Pt will participate with development of [...] Associated Diagnosis Comments BASIC METABOLIC PANEL Routine 06/16/2024 8:25 AM EST Essential (primary) hypertension Hypertensive crisis, unspecified documented in this encounter Results * (ABNORMAL) Basic metabolic panel (06/16/2024 8:25 AM EST) Sodium 133 133 - 145 mmol/L LAB CHEMISTRY METHOD 06/16/2024 11:44 AM [facility] Potassium 4.7 3.5 - 5.5 mmol/L LAB CHEMISTRY METHOD 06/16/2024 11:44 AM [facility] Chloride 102 96 - 110 mmol/L LAB CHEMISTRY METHOD 06/16/2024 11:44 AM [facility] CO2 23 21 - 32 mmol/L LAB CHEMISTRY METHOD 06/16/2024 11:44 AM [facility] Anion Gap 8 3 - 11 LAB CHEMISTRY METHOD 06/16/2024 11:44 AM [facility] Glucose 227(H) 70 - 100 mg/dL LAB CHEMISTRY METHOD 06/16/2024 11:44 AM [facility] BUN 42(H) 5 - 25 mg/dL LAB CHEMISTRY METHOD 06/16/2024 11:44 AM [facility] Creatinine 2.01(H) 0.50 - 1.10 mg/dL LAB CHEMISTRY METHOD 06/16/2024 11:44 AM [facility] eGFR 28(L) >=60 mL/min/1. 73m2 LAB CHEMISTRY METHOD 06/16/2024 11:44 AM [facility] Comment:Calculation based on the Chronic Kidney Disease Epidemiology Collaboration (CKD-EPI) equation refit without adjustment for race. BUN/Creatinine Ratio 20.9 LAB CHEMISTRY METHOD 06/16/2024 11:44 AM [facility] Calcium 8.5 8.5 - 10.5 mg/dL LAB CHEMISTRY METHOD 06/16/2024 11:[address] [facility] Blood Venous blood specimen / Unknown Venipuncture / Unknown 06/16/2024 8:25 AM EST 06/16/2024 10:18 AM EST us Lazaro Santoyo MD LAB BLOOD ORDERABLES Final Resul t [facility] [address] [place] [address], documented in this encounter Visit Diagnoses Diagnosis [...] documented as of this encounter Care Teams Chief Engineer Waterworks Relationship Specialty Start Date End Date Polo Kay NP [address] [place] [address] PCP - General Nurse Practitioner 12/28/24 documented as of this encounter
--- OUTSIDE RECORDS SUMMARY | 2025-05-02 01:08 | XMS_ITS | Encounter Summary ---
Author Organization [facility] Address [address] [place] [address] Care Team Providers Care Day Treatment Clinician/Art Therapist Name Role Phone Eliza Polo DINAH Primary Care Provider +1- [phone] Encounter Details Date Type Department Care Team (Late st Contact Info) Description 06/22/2024 Lab Requisition [facility] - Main Lab 299 [facility] [place] [phone] Lazaro Santoyo MD [address] [place] [address] Type 2 diabetes mellitus without complications (CMS/HCC [...] STS ST LTG General No Ene Moffett, ACCOUNTING PROFESSIONAL Note: Pt will improve cognitive linguistic function to participate and communicate in basic ADLs supervision ST STGs General No Ene Moffett, ACCOUNTING PROFESSIONAL Note: Pt will participate with development of [...] Associated Diagnosis Comments BASIC METABOLIC PANEL Routine 06/22/2024 5:24 AM EST Type 2 diabetes mellitus without complications (CMS/HCC) documented in this encounter Results * (ABNORMAL) Basic metabolic panel (06/22/2024 5:24 AM EST) Sodium 133 133 - 145 mmol/L LAB CHEMISTRY METHOD 06/22/2024 11:24 AM [facility] Potassium 4.7 3.5 - 5.5 mmol/L LAB CHEMISTRY METHOD 06/22/2024 11:24 AM [facility] Chloride 103 96 - 110 mmol/L LAB CHEMISTRY METHOD 06/22/2024 11:24 AM [facility] CO2 20(L) 21 - 32 mmol/L LAB CHEMISTRY METHOD 06/22/2024 11:24 AM [facility] Anion Gap 10 3 - 11 LAB CHEMISTRY METHOD 06/22/2024 11:24 AM [facility] Glucose 97 70 - 100 mg/dL LAB CHEMISTRY METHOD 06/22/2024 11:24 AM [facility] BUN 41(H) 5 - 25 mg/dL LAB CHEMISTRY METHOD 06/22/2024 11:24 AM [facility] Creatinine 2.09(H) 0.50 - 1.10 mg/dL LAB CHEMISTRY METHOD 06/22/2024 11:24 AM [facility] eGFR 27(L) >=60 mL/min/1. 73m2 LAB CHEMISTRY METHOD 06/22/2024 11:24 AM [facility] Comment:Calculation based on the Chronic Kidney Disease Epidemiology Collaboration (CKD-EPI) equation refit without adjustment for race. BUN/Creatinine Ratio 19.6 LAB CHEMISTRY METHOD 06/22/2024 11:24 AM [facility] Calcium 8.6 8.5 - 10.5 mg/dL LAB CHEMISTRY METHOD 06/22/2024 11:24 AM EST [facility] Blood Venous blood specimen / Unknown Venipuncture / Unknown 06/22/2024 5:24 AM EST 06/22/2024 10:05 AM EST us Lazaro Santoyo MD LAB BLOOD ORDERABLES Final Resul t [facility] [address] [place] [address], documented in this encounter Visit Diagnoses Diagnosis [...] documented as of this encounter Care Teams Day Treatment Clinician/Art Therapist Relationship Specialty Start Date End Date Polo Kay NP [address] [place] [address] PCP - General Nurse Practitioner 12/28/24 documented as of this encounter
--- OUTSIDE RECORDS SUMMARY | 2025-05-02 01:08 | XMS_ITS | Encounter Summary ---
Author Organization [facility] Address [address] [place] [address] Care Team Providers Care Recruiting Manager Name Role Phone Polo Kay NP Primary Care Provider +1- [phone] Encounter Details Date Type Department Care Team (Late st Contact Info) Description 06/30/[address] [facility] - Main Lab [address] [facility] [place] [phone] Lazaro Santoyo MD [address] [place] [address] Essential (primary) hypertension; Urinary tract infection, site not specified Social History Tobacco Use Types Packs/Day Years [...] STS ST LTG General No Ene Moffett, CHIEF CARDIOPULMONARY TECHNOLOGIST Note: Pt will improve cognitive linguistic function to participate and communicate in basic ADLs supervision ST STGs General No Ene Moffett, CHIEF CARDIOPULMONARY TECHNOLOGIST Note: Pt will participate with development of [...] Associated Diagnosis Comments COMPLETE BLOOD COUNT Routine 07/01/2024 7:34 AM EST Essential (primary) hypertension Urinary tract infection, site not specified BASIC METABOLIC PANEL Routine 07/01/2024 7:34 AM EST Essential (primary) hypertension Urinary tract infection, site not specified documented in this encounter Results * (ABNORMAL) Complete blood count (07/01/2024 7:34 AM EST) WBC 6.9 4.8 - 10.8 K/mcL LAB HEMETOLOGY METHOD 07/01/2024 10:42 AM [facility] RBC 2.70(L) 3.80 - 4.80 M/mcL LAB HEMETOLOGY METHOD 07/01/2024 10:42 AM [facility] Hemoglobin 7.6(L) 11.5 - 16.0 g/dL LAB HEMETOLOGY METHOD 07/01/2024 10:42 AM [facility] Hematocrit 23.3(L) 35.0 - 47.0 % LAB HEMETOLOGY METHOD 07/01/2024 10:42 AM [facility] MCV 87.9 79.0 - 98.0 FL LAB HEMETOLOGY METHOD 07/01/2024 10:42 AM [facility] MCH 28.7 27.0 - 32.0 pcg LAB HEMETOLOGY METHOD 07/01/2024 10:42 AM [facility] MCHC 32.6 32.0 - 37.0 g/dL LAB HEMETOLOGY METHOD 07/01/2024 10:42 AM [facility] RDW 13.6 11.0 - 15.0 % LAB HEMETOLOGY METHOD 07/01/2024 10:42 AM [facility] Platelets 276 130 - 400 K/mcL LAB HEMETOLOGY METHOD 07/01/2024 10:42 AM EST [facility] MPV 10.0 7.0 - 11.0 FL LAB HEMETOLOGY METHOD 07/01/2024 10:42 AM [facility] NRBC 0.0 <1.0 % LAB HEMETOLOGY METHOD 07/01/2024 10:42 AM EST [facility] NRBC Absolute 0.00 <0.10 K/mcL LAB HEMETOLOGY METHOD 07/01/2024 10:42 AM EST [facility] Blood Venous blood specimen / Unknown 07/01/2024 7:34 AM EST 07/01/2024 9:20 AM EST us Lazaro Santoyo MD LAB BLOOD ORDERABLES Final Resul t [facility] [address] [place] [address], * (ABNORMAL) Basic metabolic panel (07/01/2024 7:34 AM EST) Sodium 137 133 - 145 mmol/L LAB CHEMISTRY METHOD 07/01/2024 11:04 AM [facility] Potassium 4.3 3.5 - 5.5 mmol/L LAB CHEMISTRY METHOD 07/01/2024 11:04 AM [facility] Chloride 107 96 - 110 mmol/L LAB CHEMISTRY METHOD 07/01/2024 11:04 AM [facility] CO2 24 21 - 32 mmol/L LAB CHEMISTRY METHOD 07/01/2024 11:04 AM [facility] Anion Gap 6 3 - 11 LAB CHEMISTRY METHOD 07/01/2024 11:04 AM [facility] Glucose 117(H) 70 - 100 mg/dL LAB CHEMISTRY METHOD 07/01/2024 11:04 AM [facility] BUN 42(H) 5 - 25 mg/dL LAB CHEMISTRY METHOD 07/01/2024 11:04 AM [facility] Creatinine 2.14(H) 0.50 - 1.10 mg/dL LAB CHEMISTRY METHOD 07/01/2024 11:04 AM [facility] eGFR 26(L) >=60 mL/min/1. 73m2 LAB CHEMISTRY METHOD 07/01/2024 11:04 AM [facility] Comment:Calculation based on the Chronic Kidney Disease Epidemiology Collaboration (CKD-EPI) equation refit without adjustment for race. BUN/Creatinine Ratio 19.6 LAB CHEMISTRY METHOD 07/01/2024 11:04 AM [facility] Calcium 8.5 8.5 - 10.5 mg/dL LAB CHEMISTRY METHOD 07/01/2024 11:04 AM [facility] Blood Venous blood specimen / Unknown Venipuncture / Unknown 07/01/2024 7:34 AM EST 07/01/2024 9:18 AM EST us Lazaro Santoyo MD LAB BLOOD ORDERABLES Final Resul t [facility] [address] [place] [address], documented in this encounter Visit Diagnoses Diagnosis Essential (primary) hypertension Unspecified essential hypertension Urinary tract infection, site not specified documented in this encounter Additional Health Concerns [...] documented as of this encounter Care Teams Recruiting Manager Relationship Specialty Start Date End Date Polo Kay NP [address] [place] [address] PCP - General Nurse Practitioner 12/28/24 documented as of this encounter
--- OUTSIDE RECORDS SUMMARY | 2025-05-02 01:08 | XMS_ITS | Encounter Summary ---
Author Organization [facility] Address [address] [place] [address] Care Team Providers Care Public Health Advisor Name Role Phone Eliza Polo DINAH Primary Care Provider +1- [phone] Encounter Details Date Type Department Care Team (Late st Contact Info) Description 06/15/2024 Lab Requisition [facility] - Main Lab [address] [place] [phone] Lazaro Santoyo MD [address] [place] [address] Type 2 diabetes mellitus without complications (CMS/HCC V24, CMS/HCC V28); Essential (primary) hypertension Social History Tobacco Use [...] STS ST LTG General No Ene Moffett, COIL SPRING ASSEMBLER Note: Pt will improve cognitive linguistic function to participate and communicate in basic ADLs supervision ST STGs General No Ene Moffett, COIL SPRING ASSEMBLER Note: Pt will participate with development [...] Diagnosis Comments CBC WITH AUTO DIFFERENTIAL Routine 06/15/2024 5:37 AM EST Type 2 diabetes mellitus without complications (CMS/HCC) Essential (primary) hypertension CBC AND DIFFERENTIAL Routine 06/15/2024 5:37 AM EST Type 2 diabetes mellitus without complications (CMS/HCC) Essential (primary) hypertension BASIC METABOLIC PANEL Routine 06/15/2024 5:37 AM EST Type 2 diabetes mellitus without complications (CMS/HCC) Essential (primary) hypertension documented in this encounter Results * (ABNORMAL) CBC auto differential (06/15/2024 5:37 AM EST) WBC 9.9 4.8 - 10.8 K/mcL LAB HEMETOLOGY METHOD 06/15/2024 9:36 AM [facility] RBC 3.00(L) 3.80 - 4.80 M/mcL LAB HEMETOLOGY METHOD 06/15/2024 9:36 AM [facility] Hemoglobin 8.8(L) 11.5 - 16.0 g/dL LAB HEMETOLOGY METHOD 06/15/2024 9:36 AM [facility] Hematocrit 26.7(L) 35.0 - 47.0 % LAB HEMETOLOGY METHOD 06/15/2024 9:36 AM [facility] MCV 88.7 79.0 - 98.0 FL LAB HEMETOLOGY METHOD 06/15/2024 9:36 AM [facility] MCH 29.2 27.0 - 32.0 pcg LAB HEMETOLOGY METHOD 06/15/2024 9:36 AM [facility] MCHC 33.0 32.0 - 37.0 g/dL LAB HEMETOLOGY METHOD 06/15/2024 9:36 AM [facility] RDW 13.3 11.0 - 15.0 % LAB HEMETOLOGY METHOD 06/15/2024 9:36 AM [facility] Platelets 280 130 - 400 K/mcL LAB HEMETOLOGY METHOD 06/15/2024 9:36 AM [facility] MPV 11.1(H) 7.0 - 11.0 FL LAB HEMETOLOGY METHOD 06/15/2024 9:36 AM [facility] NRBC 0.0 <1.0 % LAB HEMETOLOGY METHOD 06/15/2024 9:36 AM [facility] NRBC Absolute 0.00 <0.10 K/mcL LAB HEMETOLOGY METHOD 06/15/2024 9:36 AM [facility] Neutrophils Relative 75.2 % LAB HEMETOLOGY METHOD 06/15/2024 9:36 AM [facility] Lymphocytes Relative 14.3 % LAB HEMETOLOGY METHOD 06/15/2024 9:36 AM [facility] Monocytes Relative 7.2 % LAB HEMETOLOGY METHOD 06/15/2024 9:36 AM [facility] Eosinophils Relative 2.5 % LAB HEMETOLOGY METHOD 06/15/2024 9:36 AM [facility] Basophils Relative 0.5 % LAB HEMETOLOGY METHOD 06/15/2024 9:36 AM [facility] Immature Granulocytes Relative 0.3 % LAB HEMETOLOGY METHOD 06/15/2024 9:36 AM [facility] Neutrophils Absolute 7.44(H) 1.50 - 7.00 K/mcL LAB HEMETOLOGY METHOD 06/15/2024 9:36 AM [facility] Lymphocytes Absolute 1.41 1.00 - 5.00 K/mcL LAB HEMETOLOGY METHOD 06/15/2024 9:36 AM [facility] Monocytes Absolute 0.71 0.20 - 1.00 K/[facility] LAB HEMETOLOGY METHOD 06/15/2024 9:36 AM EST [facility] Eosinophils Absolute 0.25 0.00 - 0.50 K/[facility] LAB HEMETOLOGY METHOD 06/15/2024 9:36 AM EST [facility] Basophils Absolute 0.05 0.00 - 0.20 K/[facility] LAB HEMETOLOGY METHOD 06/15/2024 9:36 AM EST [facility] Immature Granulocytes Absolute 0.03 0.00 - 0.03 K/[facility] LAB HEMETOLOGY METHOD 06/15/2024 9:36 AM [facility] Blood Venous blood specimen / Unknown Venipuncture / Unknown 06/15/2024 5:37 AM EST 06/15/2024 8:57 AM EST us Lazaro Santoyo MD LAB BLOOD ORDERABLES Final Resul t [facility] [address] [place] [address], * (ABNORMAL) Basic metabolic panel (06/15/2024 5:37 AM EST) Sodium 133 133 - 145 mmol/L LAB CHEMISTRY METHOD 06/15/2024 10:00 AM [facility] Potassium 4.8 3.5 - 5.5 mmol/L LAB CHEMISTRY METHOD 06/15/2024 10:00 AM [facility] Chloride 101 96 - 110 mmol/L LAB CHEMISTRY METHOD 06/15/2024 10:00 AM [facility] CO2 26 21 - 32 mmol/L LAB CHEMISTRY METHOD 06/15/2024 10:00 AM [facility] Anion Gap 6 3 - 11 LAB CHEMISTRY METHOD 06/15/2024 10:00 AM [facility] Glucose 231(H) 70 - 100 mg/dL LAB CHEMISTRY METHOD 06/15/2024 10:00 AM [facility] BUN 48(H) 5 - 25 mg/dL LAB CHEMISTRY METHOD 06/15/2024 10:00 AM [facility] Creatinine 2.43(H) 0.50 - 1.10 mg/dL LAB CHEMISTRY METHOD 06/15/2024 10:00 AM [facility] eGFR 22(L) >=60 mL/min/1. 73m2 LAB CHEMISTRY METHOD 06/15/2024 10:00 AM EST [facility] Comment:Calculation based on the Chronic Kidney Disease Epidemiology Collaboration (CKD-EPI) equation refit without adjustment for race. BUN/Creatinine Ratio 19.8 LAB CHEMISTRY METHOD 06/15/2024 10:00 AM [facility] Calcium 8.4(L) 8.5 - 10.5 mg/dL LAB CHEMISTRY METHOD 06/15/2024 10:00 AM [facility] Blood Venous blood specimen / Unknown Venipuncture / Unknown 06/15/2024 5:37 AM EST 06/15/2024 8:57 AM EST us Lazaro Santoyo MD LAB BLOOD ORDERABLES Final Resul t [facility] [address] [place] [address], documented in this encounter Visit Diagnoses Diagnosis Type 2 diabetes mellitus without complications (CMS/HCC V24, CMS/HCC V28) Essential (primary) hypertension Unspecified essential hypertension documented in this encounter Additional Health Concerns Infection Onset Date Last Indicated Resolved Time ESBL Comment:Escherichia coli (+)ESBL urine 12/29/2024 01/31/2025 Respiratory Rule-Out 01/28/2025 01/28/2025 025 12:32 AM EDT COVID-19 Rule-Out 01/28/2025 01/28/2025 01/29/2025 12:32 AM EDT Respiratory Rule-Out 01/29/2025 01/29/2025/13/2 025 1:50 PM EDT COVID-19 Rule-Out 01/29/2025 01/29/2025 01/29/2025 1:50 PM EDT Enterovirus 01/29/2025 01/29/2025 02/22/2025 7:04 PM EDT Rhinovirus 01/29/2025 01/29/2025 02/22/2025 7:0 4 PM EDT Respiratory Rule-Out 04/30/2025 04/30/2025 025 3:53 PM EST COVID-19 Rule-Out 04/30/2025 04/30/2025 04/30/2025 3:53 PM EST documented as of this encounter Care Teams Public Health Advisor Relationship Specialty Start Date End Date Polo Kay NP [address] [place] [address] PCP - General Nurse Practitioner 12/28/24 documented as of this encounter
--- OUTSIDE RECORDS SUMMARY | 2025-05-02 01:08 | XMS_ITS | Encounter Summary ---
Author Organization [facility] Address [address] [place] [address] Care Team Providers Care Tank Setter Helper Name Role Phone Polo Kay NP Primary Care Provider +1- [phone] Encounter Details Date Type Department Care Team (Late st Contact Info) Description 06/23/[address] [facility] - Main Lab [address] [facility] [place] [phone] Lazaro Santoyo MD [address] [place] [address] Dehydration Social History Tobacco Use Types Packs/Day [...] ST LTG General No Ene Moffett, DIRECTOR AGENCY & STRATEGIC PARTNERSHIPS Note: Pt will improve cognitive linguistic function to participate and communicate in basic ADLs supervision ST STGs General No Ene Moffett, DIRECTOR AGENCY & STRATEGIC PARTNERSHIPS Note: Pt will participate with development of [...] Associated Diagnosis Comments BASIC METABOLIC PANEL Routine 06/23/2024 8:18 AM EST Dehydration documented in this encounter Results * (ABNORMAL) Basic metabolic panel (06/23/2024 8:18 AM EST) Sodium 134 133 - 145 mmol/L LAB CHEMISTRY METHOD 06/23/2024 4:46 PM [facility] Potassium 4.4 3.5 - 5.5 mmol/L LAB CHEMISTRY METHOD 06/23/2024 4:46 PM [facility] Chloride 103 96 - 110 mmol/L LAB CHEMISTRY METHOD 06/23/2024 4:46 PM [facility] CO2 22 21 - 32 mmol/L LAB CHEMISTRY METHOD 06/23/2024 4:46 PM [facility] Anion Gap 9 3 - 11 LAB CHEMISTRY METHOD 06/23/2024 4:46 PM [facility] Glucose 57(L) 70 - 100 mg/dL LAB CHEMISTRY METHOD 06/23/2024 4:46 PM [facility] BUN 43(H) 5 - 25 mg/dL LAB CHEMISTRY METHOD 06/23/2024 4:46 PM [facility] Creatinine 2.02(H) 0.50 - 1.10 mg/dL LAB CHEMISTRY METHOD 06/23/2024 4:46 PM [facility] eGFR 28(L) >=60 mL/min/1. 73m2 LAB CHEMISTRY METHOD 06/23/2024 4:46 PM [facility] Comment:Calculation based on the Chronic Kidney Disease Epidemiology Collaboration (CKD-EPI) equation refit without adjustment for race. BUN/Creatinine Ratio 21.3 LAB CHEMISTRY METHOD 06/23/2024 4:46 PM [facility] Calcium 8.3(L) 8.5 - 10.5 mg/dL LAB CHEMISTRY METHOD 06/23/2024 4:46 PM [facility] Blood Venous blood specimen / Unknown Venipuncture / Unknown 06/23/2024 8:18 AM EST 06/23/2024 11:46 AM EST us Lazaro Santoyo MD LAB BLOOD ORDERABLES [facility] [address] [place] [address], documented in this encounter Visit Diagnoses Diagnosis [...] documented as of this encounter Care Teams Tank Setter Helper Relationship Specialty Start Date End Date Polo Kay NP [address] [place] [address] PCP - General Nurse Practitioner 12/28/24 documented as of this encounter
--- OUTSIDE RECORDS SUMMARY | 2025-05-02 01:08 | XMS_ITS | Encounter Summary ---
Author Organization [facility] Address [address] [place] [address] Care Team Providers Care Histologic Technician Name Role Phone Eliza Polo NIX Primary Care Provider [phone]- [phone] Encounter Details Date Type Department Care Team (Late st Contact Info) Description 06/18/2024 Lab Requisition [facility] - Main Lab [address] [facility] [place] [id number] Lazaro Santoyo MD [address] [place] [address] Essential (primary) hypertension Social History Tobacco Use [...] STS ST LTG General No Ene Moffett, GROUND CONTROL APPROACH TECHNICIAN Note: Pt will improve cognitive linguistic function to participate and communicate in basic ADLs supervision ST STGs General No Ene Moffett, GROUND CONTROL APPROACH TECHNICIAN Note: Pt will participate with development [...] Associated Diagnosis Comments BASIC METABOLIC PANEL Routine 06/18/2024 6:17 AM EST Essential (primary) hypertension documented in this encounter Results * (ABNORMAL) Basic metabolic panel (06/18/2024 6:17 AM EST) Sodium 133 133 - 145 mmol/L LAB CHEMISTRY METHOD 06/18/2024 10:[address] [facility] Potassium 4.4 3.5 - 5.5 mmol/L LAB CHEMISTRY METHOD 06/18/2024 10:[address] [facility] Chloride 102 96 - 110 mmol/L LAB CHEMISTRY METHOD 06/18/2024 10:[address] [facility] CO2 22 21 - 32 mmol/L LAB CHEMISTRY METHOD 06/18/2024 10:[address] [facility] Anion Gap 9 3 - 11 LAB CHEMISTRY METHOD 06/18/2024 10:[address] [facility] Glucose 232(H) 70 - 100 mg/dL LAB CHEMISTRY METHOD 06/18/2024 10:[address] [facility] BUN 35(H) 5 - 25 mg/dL LAB CHEMISTRY METHOD 06/18/2024 10:[address] [facility] Creatinine 1.76(H) 0.50 - 1.10 mg/dL LAB CHEMISTRY METHOD 06/18/2024 10:[address] [facility] eGFR 33(L) >=60 mL/min/1. 73m2 LAB CHEMISTRY METHOD 06/18/2024 10:[address] [facility] Comment:Calculation based on the Chronic Kidney Disease Epidemiology Collaboration (CKD-EPI) equation refit without adjustment for race. BUN/Creatinine Ratio 19.9 LAB CHEMISTRY METHOD 06/18/2024 10:[address] [facility] Calcium 8.4(L) 8.5 - 10.5 mg/dL LAB CHEMISTRY METHOD 06/18/2024 10:02 AM EST [facility] Blood Venous blood specimen / Unknown Venipuncture / Unknown 06/18/2024 6:17 AM EST 06/18/2024 9:15 AM EST us Lazaro Santoyo MD LAB BLOOD ORDERABLES Final Resul t [facility] [address] [place] [address], documented in this encounter Visit Diagnoses Diagnosis [...] documented as of this encounter Care Teams Histologic Technician Relationship Specialty Start Date End Date Polo Kay NP [address] [place] [address] PCP - General Nurse Practitioner 12/28/24 documented as of this encounter
--- OUTSIDE RECORDS SUMMARY | 2025-05-02 01:08 | XMS_ITS | Encounter Summary ---
Author Organization [facility] Address [address] [place] [address] Care Team Providers Care [employer] Teacher Name Role Phone Polo Kya NP Primary Care Provider +1- [phone] Encounter Details Date Type Department Care Team (Late st Contact Info) Description 09/07/2024 Lab Requisition [facility] - Main Lab [address] [facility] [place] [id number] Lazaro Santoyo MD [address] [place] [address] Chronic kidney disease, unspecified Social History Tobacco [...] for your loved ones. For example, child nurse or elderly care for an [...] STS ST LTG General No Ene Moffett, SOCIAL MEDIA MARKETING MANAGER Note: Pt will improve cognitive linguistic function to participate and communicate in basic ADLs supervision ST STGs General No Ene Moffett, SOCIAL MEDIA MARKETING MANAGER Note: Pt will participate with development [...] Associated Diagnosis Comments COMPLETE BLOOD COUNT Routine 09/07/2024 7:08 AM EDT Chronic kidney disease, unspecified COMPREHENSIVE METABOLIC PANEL Routine 09/07/2024 7:08 AM EDT Chronic kidney disease, unspecified documented in this encounter Results * (ABNORMAL) Comprehensive metabolic panel (09/07/2024 7:08 AM EDT) Sodium 136 133 - 145 mmol/L LAB CHEMISTRY METHOD 09/07/2024 10:22 AM EDT [facility] Potassium 4.4 3.5 - 5.5 mmol/L LAB CHEMISTRY METHOD 09/07/2024 10:22 AM [facility] Chloride 107 96 - 110 mmol/L LAB CHEMISTRY METHOD 09/07/2024 10:22 AM [facility] CO2 20(L) 21 - 32 mmol/L LAB CHEMISTRY METHOD 09/07/2024 10:22 AM [facility] Anion Gap 9 3 - 11 LAB CHEMISTRY METHOD 09/07/2024 10:22 AM [facility] Glucose 180(H) 70 - 100 mg/dL LAB CHEMISTRY METHOD 09/07/2024 10:22 AM [facility] BUN 54(H) 5 - 25 mg/dL LAB CHEMISTRY METHOD 09/07/2024 10:22 AM [facility] Creatinine 3.17(H) 0.50 - 1.10 mg/dL LAB CHEMISTRY METHOD 09/07/2024 10:22 AM [facility] eGFR 16(L) >=60 mL/min/1. 73m2 LAB CHEMISTRY METHOD 09/07/2024 10:22 AM [facility] Comment:Calculation based on the Chronic Kidney Disease Epidemiology Collaboration (CKD-EPI) equation refit without adjustment for race. BUN/Creatinine Ratio 17.0 LAB CHEMISTRY METHOD 09/07/2024 10:22 AM [facility] Calcium 7.9(L) 8.5 - 10.5 mg/dL LAB CHEMISTRY METHOD 09/07/2024 10:22 AM [facility] AST (SGOT) 7(L) 10 - 42 unit/L LAB CHEMISTRY METHOD 09/07/2024 10:22 AM [facility] ALT (SGPT) 10 10 - 60 unit/L LAB CHEMISTRY METHOD 09/07/2024 10:22 AM [facility] Alkaline Phosphatase 93 42 - 121 unit/L LAB CHEMISTRY METHOD 09/07/2024 10:22 AM [facility] Total Protein 4.8(L) 6.0 - 8.0 g/dL LAB CHEMISTRY METHOD 09/07/2024 10:22 AM T [facility] Albumin 2.1(L) 3.2 - 5.0 g/dL LAB CHEMISTRY METHOD 09/07/2024 10:22 AM [facility] Total Bilirubin 0.2 0.0 - 1.4 mg/dL LAB CHEMISTRY METHOD 09/07/2024 10:22 AM T [facility] Blood Venous blood specimen / Unknown Venipuncture / Unknown 09/07/2024 7:08 AM EDT 09/07/2024 9:06 AM EDT Lazaro Santoyo MD LAB BLOOD ORDERABLES Final Resul t [facility] [address] [place] [address], * (ABNORMAL) Complete blood count (09/07/2024 7:08 AM EDT) WBC 6.2 4.8 - 10.8 K/mcL LAB HEMETOLOGY METHOD 09/07/2024 10:23 AM [facility] RBC 2.60(L) 3.80 - 4.80 M/mcL LAB HEMETOLOGY METHOD 09/07/2024 10:23 AM [facility] Hemoglobin 7.6(L) 11.5 - 16.0 g/dL LAB HEMETOLOGY METHOD 09/07/2024 10:23 AM [facility] Hematocrit 23.3(L) 35.0 - 47.0 % LAB HEMETOLOGY METHOD 09/07/2024 10:23 AM [facility] MCV 88.3 79.0 - 98.0 FL LAB HEMETOLOGY METHOD 09/07/2024 10:23 AM [facility] MCH 28.8 27.0 - 32.0 pcg LAB HEMETOLOGY METHOD 09/07/2024 10:23 AM EDT [facility] MCHC 32.6 32.0 - 37.0 g/dL LAB HEMETOLOGY METHOD 09/07/2024 10:23 AM EDT [facility] RDW 15.0 11.0 - 15.0 % LAB HEMETOLOGY METHOD 09/07/2024 10:23 AM EDT [facility] Platelets 167 130 - 400 K/mcL LAB HEMETOLOGY METHOD 09/07/2024 10:23 AM EDT [facility] MPV 10.1 7.0 - 11.0 FL LAB HEMETOLOGY METHOD 09/07/2024 10:23 AM EDT [facility] NRBC 0.0 <1.0 % LAB HEMETOLOGY METHOD 09/07/2024 10:23 AM EDT [facility] NRBC Absolute 0.00 <0.10 K/mcL LAB HEMETOLOGY METHOD 09/07/2024 10:23 AM EDT [facility] Blood Venous blood specimen / Unknown Venipuncture / Unknown 09/07/2024 7:08 AM EDT 09/07/2024 9:06 AM EDT us Lazaro Santoyo MD LAB BLOOD ORDERABLES Final Resul t [facility] [address] [place] [address], documented in this encounter Visit Diagnoses Diagnosis Chronic kidney disease, unspecified documented in this encounter Additional Health Concerns Infection Onset Date Last Indicated Resolved Time ESBL Comment:Escherichia coli (+)ESBL urine 12/29/2024 01/31/2025 Respiratory Rule-Out 01/28/2025 01/28/2025 025 12:32 AM EDT COVID-19 Rule-Out 01/28/2025 01/28/202501/29/2025 12:32 AM EDT Respiratory Rule-Out 01/29/2025 01/29/20252 025 1:50 PM EDT COVID-19 Rule-Out 01/29/2025 01/29/2025 01/29/2025 1:50 PM EDT Enterovirus 01/29/2025 01/29/2025 02/22/2025 7:04 PM EDT Rhinovirus 01/29/2025 01/29/2025 02/22/2025 7:04 PM EDT Respiratory Rule-Out 04/30/2025 04/30/2025 025 3:53 PM EST COVID-19 Rule-Out 04/30/2025 04/30/2025 04/30/2025 3:53 PM EST documented as of this encounter Care Teams [employer] Teacher Relationship Specialty Start Date End Date Polo Kay NP [address] [place] [address] PCP - General Nurse Practitioner 12/28/24 documented as of this encounter
--- OUTSIDE RECORDS SUMMARY | 2025-05-02 01:09 | XMS_ITS | Clinical Summary ---
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 Active aspirin 81 mg chewable tablet Chew 1 tablet (81 mg total) 1 (one) time each day. 4 Active budesonide-form oteroL (SYMBICORT) 160-4.5 mcg/actuation inhaler Inhale 2 puffs by mouth 2 (two) times a day. Rinse mouth with water after use to reduce aftertaste and incidence of candidiasis. Do not swallow. Active insulin lispro (HumaLOG KwikPen) 100 unit/mL injection pen Inject 2-14 Units under the skin 3 (three) times a day before meals. Active atorvastatin (LIPITOR) 80 mg tablet Take 1 tablet (80 mg total) by mouth at bedtime. Active hydrALAZINE (APRESOLINE) 100 mg tablet Take 1 tablet (100 mg total) by mouth 3 (three) times a day. 90 each 5 Active labetaloL (NORMODYNE) 200 mg tablet Take 1 tablet (200 mg total) by mouth 3 (three) times a day. 90 each 5 Active cloNIDine (KBYYLEWL-INZ-9 ) 0.2 mg/[address] 1 patch on the skin 1 (one) time per week. 4 each 5 Active nicotine (NICODERM CQ) 14 mg/[address] 1 patch on the skin 1 (one) time each day at the same time. 30 each 5 Active NIFEdipine XL (PROCARDIA XL) 60 mg 24 hr tablet Take 1 tablet (60 mg total) by mouth 1 (one) time each day before breakfast. Do not crush, chew, or split. 30 each 5 02/04/20 26 Active bumetanide (BUMEX) 1 mg tablet Take 1 tablet (1 mg total) by mouth 2 (two) times a day. 60 each 5 Active lamoTRIgine (LaMICtal) 25 mg tablet Take 1 tablet (25 mg total) by mouth 1 (one) time each day for 2 days, THEN 1 tablet (25 mg total) 2 (two) times a day. 62 each 5 Active furosemide (LASIX) 20 mg tablet Take 1 tablet (20 mg total) by mouth 1 (one) time each day for 10 days. 10 each 5 Active doxycycline (MONODOX) 100 mg capsule Take 1 capsule (100 mg total) by mouth 2 (two) times a day for 7 days. Take with at least 8 ounces (large glass) of water, do not lie down for 30 minutes after 14 each 5 05/07/20 25 Active budesonide-form oteroL (SYMBICORT) 80-4.5 mcg/actuation inhaler Inhale 2 puffs by mouth 2 (two) times a day. May take additional 1 to 2 puffs as needed every 4 hours for wheeze. Rinse mouth with water after use to reduce aftertaste and incidence of candidiasis. Do not swallow. 1 each 5 Active Active Problems Problem Noted Date Diagnosed Date Anemia 01/29/2025 Anemia, unspecified type 09/03/2024 Symptomatic anemia 09/02/2024 JOE (acute kidney injury) 08/23/2024 Bacteriuria, asymptomatic 08/23/2024 Seizure 08/19/2024 Acute stroke due to ischemia 08/03/2024 Aphasia 08/03/2024 UTI (urinary tract infection) 08/03/2024 Hemiparesis of left dominant side as late effect of cerebral infarction 03/31/2024 History of stroke with residual effects 03/29/20 Cerebral infarction, unspecified 03/29/2024 Diabetes mellitus type 2 with neurological manif estations 01/12/2019 Diabetic neuropathy 01/12/2019 Diabetic retinopathy 01/12/2019 Overview (05/28/2024): With macular edema DM (diabetes mellitus), type 2 with renal compli cations 01/12/2019 Type 2 diabetes mellitus with eye manifestations 01/12/2019 Microalbuminuria 01/12/2019 Uncontrolled hypertension 01/12/2019 Varicose veins with pain 08/16/2018 Anxiety and depression 10/16/2014 Overview (05/28/2024): Taking Zoloft and Vistaril - As per past Medical Records Hyperlipidemia 10/16/2014 Resolved Problems Problem Noted Date Diagnosed Date Resolved Date Pleural effusion on left 01/11/2025 Hypertensive emergency 06/07/202401/04 Encounters Date Type Department Care Team Description 04/30/2025 2:27 PM EST - 04/30/2025 6:46 PM [facility] Emergency [address] [place] [address] Iggy Tse MD Pneumonia of left lung due to infectious organism, unspecified part of lung (Primary Dx); Mild intermittent asthma with exacerbation Discharge Disposition: Home or Self Care 04/04/2025 8:23 PM EST - 04/05/2025 10:24 AM [facility] Emergency [address] [place] [address] Zoila Steele MD Leg edema, left (Primary Dx) Discharge Disposition: Home or Self Care 03/22/2025 Telephone [facility] [address] [place] [address] [address] [place] [phone] Jesus Quiroz MD 02/21/2025 5:59 PM EDT - 02/22/2025 1:42 AM EDT Emergency [facility] Emergency [address] [place] [address] Josh Huynh MD Seizure ([facility] [place], [facility] [place] (Primary Dx) Discharge Disposition: Home or Self Care 01/28/2025 10:42 PM EDT - 02/02/2025 5:00 PM EDT Hospital Encounter [facility] Intermediate Care Unit [address] [place] [address] Marcelino Guthrie MD Jones, MD Roxanna Miles, MD Natalia [place], MD Alam, MD Thais Pleural effusion on left (Primary Dx); Anemia, unspecified type; Hyperkalemia; JOE (acute kidney injury) ([facility] V24); Symptomatic anemia; History of stroke with residual effects Discharge Disposition: Home-Health Care Svc from Last 3 Months Immunizations Immunization Administration Dates Next Due Pfizer SARS-CoV-2 COVID-19, mRNA, LNP-S, preservative free 06/19/2021,06/13/2020,05/23/2020 Pneumococcal polysaccharide 23 valent (Pneumovax 23) 2yo and older 12/22/2015,04/29/2011 Tdap Tetanus diptheria acell ular pertussis (Boostrix; Adacel) 7yo and older 12/22/2015,05/15/2011 Surgical History Surgery Date Site/Laterality Comments CHOLECYSTECTOMY Medical History Medical History Date Comments HTN (hypertension) HLD (hyperlipidemia) Depression CKD (chronic kidney disease) CVA (cerebral vascular accident) ([facility] V24, [facility] V28) L sided hemiparesis Smoker Hypertension Hyperlipidemia Diabetes mellitus ([facility] V24, [facility] V28) CKD (chronic kidney disease) , stage III ([facility] V24, [facility] V28) Depression with anxiety Meade catheter in place Urinary retention Anemia in chronic renal disease Symptomatic of Family History Medical History Relation Name Comments Diabetes Other Hyperlipidemia Other Hypertension Other Relation Name Status Comments Other Social History Tobacco Use Types Packs/Day Years Used Date Smoking Tobacco: Every Day Cigarettes Smokeless Tobacco: Never Tobacco Cessation:Ready to Q uit: Not Asked; Counseling Given: Not Answered Comments:Reports cessation occurring 2023 after diagnosis of stroke Alcohol Use [...] care for your loved ones. For example, children teacher or elderly care for an older [...] Orientation Straight 09/02/2024 12 :34 PM EDT Last Filed Vital Signs Vital Sign Reading Time Taken Comments Blood Pressure 143/63 04/30/2025 4:50 PM EST Pulse 76 04/30/2025 4:50 PM EST Temperature 37.1 C (98.8 F) 04/30/2025 4:50 PM EST Respiratory Rate 16 04/30/2025 4:50 PM EST Oxygen Saturation 94% 04/30/2025 4:50 PM EST Inhaled Oxygen Concentration - - Weight 74.4 kg (164 lb) 04/05/2025 12:46 AM EST Height 175.3 cm (5' 9 ) 04/05/2025 12:46 AM EST Body Mass Index 24.22 04/05/2025 12:46 AM EST Plan of Treatment Health Maintenance Due Date Last Done Comments Diabetes: Annual Foot Exam 01/22/1974 Diabetes: Annual Retina Eye Exam 01/22/1974 Cervical Cancer Screening: Pap Smear 01/22/1985 Hepatitis B Vaccines (3 of 3 - 19+ 3-dose series) 12/12/2011 10/17/2011, 07/31/2010 RSV Immunization Adult Patients (1 - Risk 50-74 years 1-dose series) 01/22/2014 Breast Cancer Screening 10/24/2022 10/24/2020, 06/29 Depression Screening 05/19/2024 Medicare Annual Wellness Visit 08/20/2024 COVID-19 Vaccine ( season) 2025 06/19/2021, 06/13/2020, 05/23/2020 Influenza Vaccine (#1) 2025 05/29/2012, 2010 Diabetes: Blood Sugar Control Test (HGBA1C) 07/03/2025 12/31/2024, 12/30/2024, 11/18/2024, Additional history exists Social Influencers of Health Screening 08/19/2025 08/19/2024 DTaP,Tdap,and Td Vaccines (3 - Td or Tdap) 12/21/2025 12/22/2015, 05/15/2011 Diabetes: Annual Urine Albumin-Creatinine Ratio (uACR) 01/12/2026 01/12/2025, 09/27/2024, 05/05/2024, Additional history exists Colorectal Cancer Screening: Stool Based Tests (FOBT/FIT) 01/29/2026 01/29/2025, 09/08/2023 Diabetes: Annual GFR (Glomerular Filtration Rate) 04/05/2026 04/05/2025, 04/04/2025, 02/21/2025, Additional history exists Hypertension/CHF/CAD Annual BMP Blood Test 04/05/2026 04/05/2025, 04/04/2025, 02/21/2025, Additional history exists Cholesterol Screening (Lipid Panel) 12/31/2029 12/31/2024, 11/18/2024, 11/18/2024, Additional history exists Zoster Vaccines Completed 08/24/2020, 06/24/2019 Pneumococcal Vaccine: 50+ Years Completed 11/27/2022, 12/22/2015, 04/29/2011 HIV Screening Completed 01/13/2025, 12/22/2018 Hepatitis C Screening Completed 01/13/2025 HIB Vaccines Aged Out No longer eligi ble based on patient's age to complete this topic HPV Vaccines Aged Out No longer eligi ble based on patient's age to complete this topic Hepatitis A Vaccines Aged Out No long er eligible based on patient's age to complete this topic IPV Vaccines Aged Out No longer eligi ble based on patient's age to complete this topic MMR Vaccines Aged Out No longer eligi ble based on patient's age to complete this topic Meningococcal ACWY Vaccine Aged Out N o longer eligible based on patient's age to complete this topic Meningococcal B Vaccine Aged Out No l onger eligible based on patient's age to complete this topic RSV Immunization Patients Under 20 months Aged Out No longer eligible based on patient's age to complete this topic Varicella Vaccines Aged Out No longer eligible based on patient's age to complete this topic Goals Goal Patient Goal Type Associated Problems [...] STS ST [facility] General No Ene Moffett, TAX ASSOCIATE ATTORNEY Note: Pt will improve cognitive linguistic function to participate and communicate in basic ADLs supervision ST STGs General No Ene Moffett, TAX ASSOCIATE ATTORNEY Note: Pt will participate with development of [...] divergent organization tasks with min semantic cues Medical Devices Implanted Type Area Yard Coupler Device Identifier Shelf Expiration Date Model / Serial / Lot Sponge Surgifoam Gel 12 X 7mm - [id number] Implanted:Qty: 1 on 02/01/2025 by Tamica Alvarado PA at [facility] Hemostasis Right: Flank [employer] [id number] 04/13/20281971 / / [id number] Device Clsur Angio-Seal 8f Vip Teru-Intv [id number] Implanted:Qty: 1 on 11/28/2023 by Dilip Fay MD TERUMO - INTERVENTIONAL SYSTEM 07/10/2024 [id number] / / [id number] Procedures Procedure Name Priority Date/Time Associated Diagnosis Comments XR CHEST 2 VIEWS STAT 04/30/2025 4:45 PM EST [id number], RSV, FLU A AND B QUALITATIVE RT-PCR, INTERNAL LAB STAT 04/30/2025 2:59 PM EST ECG ANNOTATED 04/06/2025 BASIC METABOLIC PANEL STAT 04/05/2025 5:59 AM EST ECG 12-LEAD STAT 04/05/2025 12:11 AM EST TROPONIN I HIGH SENSITIVITY Timed 04/05/2025 12:00 AM EST XR CHEST 1 VIEW STAT 04/04/2025 10:40 PM EST CBC WITH AUTO DIFFERENTIAL STAT 04/04/2025 9:50 PM EST B-TYPE NATRIURETIC PEPTIDE STAT 04/04/2025 9:50 PM EST MAGNESIUM STAT 04/04/2025 9:50 PM EST LIPASE STAT 04/04/2025 9:50 PM EST COMPREHENSIVE METABOLIC PANEL STAT 04/04/2025 9:50 PM EST CBC AND DIFFERENTIAL STAT 04/04/2025 9:50 PM EST TROPONIN I HIGH SENSITIVITY Timed 04/04/2025 9:50 PM EST ECG 12-LEAD STAT 04/04/2025 9:03 PM EST CBC WITH AUTO DIFFERENTIAL STAT 02/21/2025 6:53 PM EDT PROLACTIN STAT 02/21/2025 6:53 PM EDT MAGNESIUM STAT 02/21/2025 6:53 PM EDT BASIC METABOLIC PANEL STAT 02/21/2025 6:53 PM EDT CBC AND DIFFERENTIAL STAT 02/21/2025 6:53 PM EDT POCT GLUCOSE BLOOD Routine 02/02/2025 12 :14 PM EDT POCT GLUCOSE BLOOD Routine 02/02/2025 7: 32 AM EDT CBC WITH AUTO DIFFERENTIAL Routine 02/02/2025 6:42 AM EDT CBC AND DIFFERENTIAL Routine 02/02/2025 6:42 AM EDT BASIC METABOLIC PANEL Routine 02/02/2025 6:42 AM EDT MAGNESIUM Timed 02/02/2025 6:42 AM EDT POCT GLUCOSE BLOOD Routine 02/01/2025 7: 33 PM EDT HEMOGLOBIN AND HEMATOCRIT Routine 02/01/2025 5:41 PM EDT POCT GLUCOSE BLOOD Routine 02/01/2025 3: 51 PM EDT IR BX NDL RENAL PERC BILAT Routine 02/01/2025 3:30 PM EDT AP KIDNEY BIOPSY Routine 02/01/2025 3:17 PM EDT Pleural effusion on left Hyperkalemia Anemia, unspecified type TISSUE EXAM Routine 02/01/2025 3:17 PM EDT Pleural effusion on left Hyperkalemia Anemia, unspecified type POCT GLUCOSE BLOOD Routine 02/01/2025 12 :48 PM EDT POCT GLUCOSE BLOOD Routine 02/01/2025 11 :16 AM EDT TRANSFUSE RED BLOOD CELLS Routine 02/01/2025 10:15 AM EDT PREPARE RBC Routine 02/01/2025 9:01 AM EDT POCT GLUCOSE BLOOD Routine 02/01/2025 8: 28 AM EDT POCT GLUCOSE BLOOD Routine 02/01/2025 7: 43 AM EDT CBC WITH AUTO DIFFERENTIAL Routine 02/01/2025 6:18 AM EDT MAGNESIUM Timed 02/01/2025 6:18 AM EDT CBC AND DIFFERENTIAL Routine 02/01/2025 6:18 AM EDT COMPREHENSIVE METABOLIC PANEL Timed 02/01/2025 6:18 AM EDT POCT GLUCOSE BLOOD Routine 01/31/2025 9: 43 PM EDT TRANSFUSE RED BLOOD CELLS Routine 01/31/2025 7:16 PM EDT BURTON URINE CULTURE TUBE Routine 02/01/20 6:45 PM EDT URINALYSIS WITH REFLEX MICROSCOPIC AND CULTURE Routine 01/31/2025 6:45 PM EDT URINALYSIS WITH REFLEX MICROSCOPIC AND CULTURE Routine 01/31/2025 6:45 PM EDT CULTURE URINE Routine 01/31/2025 6:45 PM EDT PREPARE RBC STAT 01/31/2025 4:55 PM EDT POCT GLUCOSE BLOOD Routine 01/31/2025 4: 43 PM EDT POCT GLUCOSE BLOOD Routine 01/31/2025 12 :22 PM EDT US THORACENTESIS W IMAGE GUIDANCE LEFT Routine 01/31/2025 11:53 AM EDT NON-GYNECOLOGIC CYTOLOGY Routine 01/31/2025 11:53 AM EDT PH, BODY FLUID Routine 01/31/2025 11:53 AM EDT PROTEIN, BODY FLUID Routine 01/31/2025 1 1:53 AM EDT GLUCOSE, BODY FLUID Routine 01/31/2025 1 1:53 AM EDT CELL COUNT WITH REFLEX DIFFERENTIAL, BODY FLUID Routine 01/31/2025 11:53 AM EDT CULTURE BODY FLUID WITH GRAM STAIN Routine 01/31/2025 11:53 AM EDT POCT GLUCOSE BLOOD Routine 01/31/2025 11 :03 AM EDT POCT GLUCOSE BLOOD Routine 01/31/2025 7: 21 AM EDT CBC WITH AUTO DIFFERENTIAL Routine 01/31/2025 6:35 AM EDT PHOSPHORUS Routine 01/31/2025 6:35 AM EDT BASIC METABOLIC PANEL Routine 01/31/2025 6:35 AM EDT CBC AND DIFFERENTIAL Routine 01/31/2025 6:35 AM EDT OCCULT BLOOD STOOL, GUAIAC STAT 01/29/2025 4:00 AM EDT TRANSFUSE RED BLOOD CELLS STAT 01/29/2025 2:33 AM EDT HEPATITIS C ANTIBODY Add-On 01/13/2025 5:55 AM EDT HIV 1, 2 ANTIBODY, P24 ANTIGEN WITH REFLEX TO DIFFERENTIATION Add-On 01/13/2025 5:55 AM EDT MICROALBUMIN CREATININE URINE RATIO Routine 01/12/2025 11:26 AM EDT LIPID PANEL WITH REFLEX TO DIRECT LDL Add-On 12/31/2024 6:11 AM EDT HEMOGLOBIN A1C Routine 12/31/2024 6:10 AM EDT GRETA SCREENING DIGITAL Routine 10/24/2020 3:42 PM EDT Encounter for screening mammogram for malignant neoplasm of breast from Last 3 Months or Most Recently Relevant to Health Maintenance Results * XR Chest 2 Views (04/30/2025 [...] Signed Date: 04/30/2025 17:01 ET Workstation ID: [id number] Transcribed By: Self Edit Transcribed Date: 04/30/2025 [...] Signed Date: 04/30/2025 17:01 ET Workstation ID: [id number] Transcribed By: Self Edit Transcribed Date: 04/30/2025 16:57 ET Iggy Tse MD IMG XR PROCEDURES Final Result * [id number], RSV, Influenza A and B qualitative RT-PCR (04/30/2025 2:59 PM EST) [facility] Influenza A PCR Not Detected Not Detected [...] Iggy Tse MD LAB [facility] Final Result [facility] [address] [place] [address], [place] [phone] * ECG-Annotated (04/06/2025) us Provider Onbase MD ECG ORDERABLES Final Result * (ABNORMAL) Basic metabolic panel (04/05/2025 5:59 AM EST) Only the most recent of4 resultswithin the time period is included. [facility] Sodium 127(L) 133 - 145 mmol/L LAB CHEMISTRY METHOD 04/05/2025 6:48 AM EST [facility] Potassium 4.7 3.5 - 5.5 mmol/L LAB CHEMISTRY METHOD 04/05/2025 6:48 AM EST [facility] Comment:Hemolysis present Chloride 97 96 - 110 mmol/L LAB CHEMISTRY METHOD 04/05/2025 6:48 AM [facility] CO2 19(L) 21 - 32 mmol/L LAB CHEMISTRY METHOD 04/05/2025 6:48 AM [facility] Anion Gap 11 3 - 11 LAB CHEMISTRY METHOD 04/05/2025 6:48 AM [facility] Glucose 170(H) 70 - 100 mg/dL LAB CHEMISTRY METHOD 04/05/2025 6:48 AM [facility] BUN 39(H) 5 - 25 mg/dL LAB CHEMISTRY METHOD 04/05/2025 6:48 AM [facility] Creatinine 3.62(H) 0.50 - 1.10 mg/dL LAB CHEMISTRY METHOD 04/05/2025 6:48 AM [facility] eGFR 14(L) >=60 mL/min/1. 73m2 LAB CHEMISTRY METHOD 04/05/2025 6:48 AM [facility] Comment:Calculation based on the Chronic Kidney Disease Epidemiology Collaboration (CKD-EPI) equation refit without adjustment for race. BUN/Creatinine Ratio 10.8 LAB CHEMISTRY METHOD 04/05/2025 6:48 AM [facility] Calcium 8.8 8.5 - 10.5 mg/dL LAB CHEMISTRY METHOD 04/05/2025 6:48 AM [facility] Blood Venous blood specimen / Unknown Venipuncture / Unknown 04/05/2025 5:59 AM EST 04/05/2025 6:06 AM EST us Jd Lugo MD LAB BLOOD ORDERABLES Final Result [facility] [address] [place] [address], * ECG 12 lead (04/05/2025 12:11 AM EST) Only the most recent of2 resultswithin the time period is included. Ventricular Rate ECG 87 BPM GEMUSE Atrial Rate 87 BPM GEMUSE P-R Interval 194 ms GEMUSE QRS Duration 74 ms GEMUSE Q-T Interval 366 ms GEMUSE QTc 440 ms GEMUSE P Wave Turner 64 degrees GEMUSE R Turner 24 degrees GEMUSE T Turner 20 degrees GEMUSE ECG Interpretation Normal sinus rhythm Anterior infarct (cited on or before 29-DEC-2024) Abnormal ECG When compared with ECG of 04-APR-2025 21:03, No significant change was found Confirmed by MD Gill Christopher ([id number]) on 04/05/2025 5:17:36 PM GEMUSE 04/05/2025 12:1 1 AM EST 04/05/2025 5:17 PM EST us Zoila Steele MD ECG ORDERABLES Final Result Performing Organization Address [facility] Co de Phone Number GEMUSE * Troponin I high sensitivity (04/05/2025 12:00 AM EST) Only the most recent of2 resultswithin the time period is included. Pathologist [facility] High Sensitivity Troponin I 9 <=54 ng/L LAB CHEMISTRY METHOD 04/05/2025 1:12 AM EST [facility] Blood Venous blood specimen / Unknown Venipuncture / Unknown 04/05/2025 12:00 AM EST 04/05/2025 12:48 AM EST Narrative [facility] - 04/05/2025 1:12 AM EST High levels of biotin in samples may falsely decrease hsTroponin values. Use caution when interpreting hsTroponin results in patients taking biotin who exhibit renal impairment (eGFR <60) or in patients taking more than 20 mg/day of biotin. us Zoila Steele MD LAB BLOOD ORDERABLES Final Res ult [facility] [address] [place] [address], [place] [phone] * XR Chest 1 View (04/04/2025 10:40 PM EST) Anatomical Region Laterality Modality Body Radiographic Susan ging 04/05/2025 8:14 AM EST Impressions 04/05/2025 8:17 AM EST Impression: Improved pleural parenchymal process at the left base since 01/29/25. Telerad JACEK ([id number]) -------- FINAL REPORT -------- Dictated By: Aleena Souza Dictated Date: 04/05/2025 08:14 ET Assigned Physician: Aleena Souza Reviewed and Electronically Signed By: Aleena Souza Signed Date: 04/05/2025 08:17 ET Workstation ID: [id number] Transcribed By: Self Edit Transcribed Date: 04/05/2025 08:14 ET Narrative 04/05/2025 8:17 AM EST History: Chest pain. Left arm swelling and numbness. Comparison: 01/29/25, thoracic CT 01/29/25 Findings: AP upright chest at 9:34 PM. The cardiac silhouette remains borderline enlarged. There is dense, confluent opacity within the left retrocardiac area, partially silhouetting the diaphragm and descending thoracic aortic contour and blunting the costophrenic angle, consistent with a known pleural effusion and underlying atelectasis, with CT correlation. This has improved since the previous study. Minimal bandlike opacities seen at the right base, consistent with subsegmental atelectasis, unchanged. The pulmonary vascularity is within normal limits. Atherosclerotic calcification of the aortic arch is seen. Chronic inferior subluxation of the left glenohumeral joint is again noted. Procedure Note Aleena Souza MD - 04/05/2025 History: Chest pain. Left arm swelling and numbness. Comparison: 01/29/25, thoracic CT 01/29/25 Findings: AP upright chest at 9:34 PM. The cardiac silhouette remains borderlineenlarged. There is dense, confluent opacity within the left retrocardiacarea, partially silhouetting the diaphragm and descending thoracic aorticcontour and blunting the costophrenic angle, consistent with a knownpleural effusion and underlying atelectasis, with CT correlation. This hasimproved since the previous study. Minimal bandlike opacities seen at theright base, consistent with subsegmental atelectasis, unchanged. The pulmonary vascularity is within normal limits. Atheroscleroticcalcification of the aortic arch is seen. Chronic inferior subluxation of the left glenohumeral joint is againnoted. IMPRESSION: Impression: Improved pleural parenchymal process at the left base since 01/29/25. Telerad JACEK ([id number]) -------- FINAL REPORT -------- Dictated By: Aleena Souza Dictated Date: 04/05/2025 08:14 ET Assigned Physician: Aleena Souza Reviewed and Electronically Signed By: Aleena Souza Signed Date: 04/05/2025 08:17 ET Workstation ID: [id number] Transcribed By: Self Edit Transcribed Date: 04/05/2025 08:14 ET Zoila Steele MD IMG XR PROCEDURES Final Result * (ABNORMAL) CBC auto differential (04/04/2025 9:50 PM EST) Only the most recent of5 resultswithin the time period is included. WBC 8.9 4.8 - 10.8 K/mcL LAB HEMETOLOGY METHOD 04/04/2025 11:06 PM [facility] RBC 3.00(L) 3.80 - 4.80 M/mcL LAB HEMETOLOGY METHOD 04/04/2025 11:06 PM [facility] Hemoglobin 9.0(L) 11.5 - 16.0 g/dL LAB HEMETOLOGY METHOD 04/04/2025 11:06 PM [facility] Hematocrit 27.6(L) 35.0 - 47.0 % LAB HEMETOLOGY METHOD 04/04/2025 11:06 PM [facility] MCV 90.8 79.0 - 98.0 FL LAB HEMETOLOGY METHOD 04/04/2025 11:06 PM [facility] MCH 29.6 27.0 - 32.0 pcg LAB HEMETOLOGY METHOD 04/04/2025 11:06 PM [facility] MCHC 32.6 32.0 - 37.0 g/dL LAB HEMETOLOGY METHOD 04/04/2025 11:06 PM [facility] RDW 14.4 11.0 - 15.0 % LAB HEMETOLOGY METHOD 04/04/2025 11:06 PM [facility] Platelets 276 130 - 400 K/mcL LAB HEMETOLOGY METHOD 04/04/2025 11:06 PM [facility] Comment:reviewed by slide MPV 10.7 7.0 - 11.0 FL LAB HEMETOLOGY METHOD 04/04/2025 11:06 PM [facility] NRBC 0.0 <1.0 % LAB HEMETOLOGY METHOD 04/04/2025 11:06 PM [facility] NRBC Absolute 0.00 <0.10 K/mcL LAB HEMETOLOGY METHOD 04/04/2025 11:06 PM [facility] Neutrophils Relative 76.7 % LAB HEMETOLOGY METHOD 04/04/2025 11:06 PM [facility] Lymphocytes Relative 13.1 % LAB HEMETOLOGY METHOD 04/04/2025 11:06 PM [facility] Monocytes Relative 6.5 % LAB HEMETOLOGY METHOD 04/04/2025 11:06 PM [facility] Eosinophils Relative 2.4 % LAB HEMETOLOGY METHOD 04/04/2025 11:06 PM [facility] Basophils Relative 0.3 % LAB HEMETOLOGY METHOD 04/04/2025 11:06 PM [facility] Immature Granulocytes Relative 1.0 % LAB HEMETOLOGY METHOD 04/04/2025 11:06 PM [facility] Neutrophils Absolute 6.80 1.50 - 7.00 K/mcL LAB HEMETOLOGY METHOD 04/04/2025 11:06 PM [facility] Lymphocytes Absolute 1.16 1.00 - 5.00 K/mcL LAB HEMETOLOGY METHOD 04/04/2025 11:06 PM EST [facility] Monocytes Absolute 0.58 0.20 - 1.00 K/[facility] LAB HEMETOLOGY METHOD 04/04/2025 11:06 PM EST [facility] Eosinophils Absolute 0.21 0.00 - 0.50 [facility] LAB HEMETOLOGY METHOD 04/04/2025 11:06 PM EST [facility] Basophils Absolute 0.03 0.00 - 0.20 [facility] LAB HEMETOLOGY METHOD 04/04/2025 11:06 PM EST [facility] Immature Granulocytes Absolute 0.09(H) 0.00 - 0.03 [facility] LAB HEMETOLOGY METHOD 04/04/2025 11:06 PM EST [facility] Blood Venous blood specimen / Unknown Venipuncture / Unknown 04/04/2025 9:50 PM EST 04/04/2025 10:28 PM EST Zoila Setele MD LAB BLOOD ORDERABLES Final Res ult Performing Organization Address City/[facility]/ZIP Co de Phone Number [facility] [address] [place] [address], * (ABNORMAL) B-type natriuretic peptide (04/04/2025 9:50 PM EST) BNP 526(H) <=100 pcg/mL LAB CHEMISTRY METHOD 04/04/2025 11:07 PM EST [facility] Blood Venous blood specimen / Unknown Venipuncture / Unknown 04/04/2025 9:50 PM EST 04/04/2025 10:28 PM EST us Zoila Steele MD LAB BLOOD ORDERABLES Final Res ult [facility] [address] [place] [address], [place] [phone] * (ABNORMAL) Magnesium (04/04/2025 9:50 PM EST) Only the most recent of4 resultswithin the time period is included. Magnesium 1.8(L) 1.9 - 2.6 mg/dL LAB CHEMISTRY METHOD 04/04/2025 11:03 PM EST [facility] Blood Venous blood specimen / Unknown Venipuncture / Unknown 04/04/2025 9:50 PM EST 04/04/2025 10:28 PM EST us Zoila Steele MD LAB BLOOD ORDERABLES Final Res ult Performing Organization Address City/[facility]/ZIP Co de Phone Number [facility] [address] [place] [address], [place] [phone] * Lipase (04/04/2025 9:50 PM EST) [facility] Lipase 30 13 - 75 unit/L LAB CHEMISTRY METHOD 04/04/2025 11:03 PM EST [facility] Blood Venous blood specimen / Unknown Venipuncture / Unknown 04/04/2025 9:50 PM EST 04/04/2025 10:28 PM EST us Zoila Steele MD LAB BLOOD ORDERABLES Final Res ult [facility] [address] [place] [address], [place] [phone] * (ABNORMAL) Comprehensive metabolic panel (04/04/2025 9:50 PM EST) Only the most recent of2 resultswithin the time period is included. Sodium 135 133 - 145 mmol/L LAB CHEMISTRY METHOD 04/04/2025 11:03 PM EST [facility] Potassium 6.0(H) 3.5 - 5.5 mmol/L LAB CHEMISTRY METHOD 04/04/2025 11:03 PM [facility] Comment:Hemolysis present Chloride 110 96 - 110 mmol/L LAB CHEMISTRY METHOD 04/04/2025 11:03 PM [facility] CO2 20(L) 21 - 32 mmol/L LAB CHEMISTRY METHOD 04/04/2025 11:03 PM [facility] Anion Gap 5 3 - 11 LAB CHEMISTRY METHOD 04/04/2025 11:03 PM [facility] Glucose 217(H) 70 - 100 mg/dL LAB CHEMISTRY METHOD 04/04/2025 11:03 PM [facility] BUN 44(H) 5 - 25 mg/dL LAB CHEMISTRY METHOD 04/04/2025 11:03 PM [facility] Creatinine 3.71(H) 0.50 - 1.10 mg/dL LAB CHEMISTRY METHOD 04/04/2025 11:03 PM [facility] eGFR 13(L) >=60 mL/min/1. 73m2 LAB CHEMISTRY METHOD 04/04/2025 11:03 PM [facility] Comment:Calculation based on the Chronic Kidney Disease Epidemiology Collaboration (CKD-EPI) equation refit without adjustment for race. BUN/Creatinine Ratio 11.9 LAB CHEMISTRY METHOD 04/04/2025 11:03 PM [facility] Calcium 7.8(L) 8.5 - 10.5 mg/dL LAB CHEMISTRY METHOD 04/04/2025 11:03 PM [facility] AST (SGOT) 39 10 - 42 unit/L LAB CHEMISTRY METHOD 04/04/2025 11:03 PM [facility] ALT (SGPT) 33 10 - 60 unit/L LAB CHEMISTRY METHOD 04/04/2025 11:03 PM [facility] Alkaline Phosphatase 146(H) 42 - 121 unit/L LAB CHEMISTRY METHOD 04/04/2025 11:03 PM [facility] Total Protein 5.1(L) 6.0 - 8.0 g/dL LAB CHEMISTRY METHOD 04/04/2025 11:03 PM EST [facility] Albumin 2.1(L) 3.2 - 5.0 g/dL LAB CHEMISTRY METHOD 04/04/2025 11:03 PM EST [facility] Total Bilirubin 0.4 0.0 - 1.4 mg/dL LAB CHEMISTRY METHOD 04/04/2025 11:03 PM EST [facility] Blood Venous blood specimen / Unknown Venipuncture / Unknown 04/04/2025 9:50 PM EST 04/04/2025 10:28 PM EST Zoila Steele MD LAB BLOOD ORDERABLES Final Res ult Performing Organization Address City/[facility]/ZIP Co de Phone Number [facility] [address] [place] [address], * Prolactin (02/21/2025 6:53 PM EDT) Prolactin 62.00 See Comment ng/mL LAB CHEMISTRY METHOD 02/21/2025 7:35 PM EDT [facility] Comment: Prolactin Reference Ranges (ng/mL) Non 2.2 - 30.3 8.1 - 347.6 Postmenopausal 0.7 - 31.5 Blood Venous blood specimen / Unknown Venipuncture / Unknown 02/21/2025 6:53 PM EDT 02/21/2025 6:57 PM EDT Jerry READ LAB BLOOD ORDERABLES Final Result Performing Organization Address City/[facility]/ZIP Co de Phone Number [facility] [address] [place] [address], [place] [phone] * (ABNORMAL) POCT Glucose, blood (02/02/2025 12:14 PM EDT) Only the most recent of13 resultswithin the time period is included. Glucose POCT 204(H) 70 - 100 mg/dL 02/02/2025 12:15 PM EDT [facility] Blood Capillary blood specimen / Unknown 02/02/2025 12:14 PM EDT 02/02/2025 12:16 PM EDT Thais Joya MD LAB POINT OF CARE TE ST DOCKED DEVICE UNSOLICITED RESULTS Final Result [facility] [address] [place] [address], [place] [phone] * Transfuse RBC (02/01/2025 6:08 PM EDT) Only the most recent of2 resultswithin the time period is included. us Jd Lugo MD BLOOD TRANSFUSION ORDERABLE S Final Result * (ABNORMAL) Hemoglobin and hematocrit (02/01/2025 5:41 PM EDT) Hemoglobin 10.4(L) 11.5 - 16.0 g/dL LAB HEMETOLOGY METHOD 02/01/2025 5:54 PM EDT [facility] Hematocrit 31.0(L) 35.0 - 47.0 % LAB HEMETOLOGY METHOD 02/01/2025 5:54 PM EDT [facility] Blood Venous blood specimen / Unknown Venipuncture / Unknown 02/01/2025 5:41 PM EDT 02/01/2025 5:42 PM EDT us Tamica READ LAB BLOOD ORDERABLES Final Resul t [facility] [address] [place] [address], [place] [phone] * IR Bx Ndl Renal Perc bilat (02/01/2025 3:30 PM EDT) Anatomical Region Laterality Modality Kidney Bilateral Interventional R adiology 02/01/2025 3:46 PM EDT Narrative 02/01/2025 5:36 PM EDT INDICATION: Random renal biopsy Technique: Written informed consent was obtained after the risks, benefits and alternatives were discussed. Prior imaging was reviewed. Patient was placed prone on the CT table and multiple images were obtained through the kidneys. The appropriate area of the skin was draped and prepped in the usual sterile fashion. 2% buffered lidocaine was used as a local anesthetic. Moderate intravenous sedation was initiated and maintained for approximately 25 minutes utilizing 1mg Versed and 50mcg Fentanyl while the patient was independently monitored by the radiology nurse under the supervision of the interventional radiologist. Under CT fluoroscopic guidance a 17-gauge coaxial needle was advanced into lower pole of the right kidney. A total of 3 23mm samples were obtained and placed into normal saline. Gel foam was utilized along the tract. Final pathology pending. The patient tolerated the procedure well and left the department in stable condition without immediate complications. A 2 hour and 4 hour hemoglobin/hematocrit ordered in this patient with history low HH needing transfusion. FINDINGS: Images obtained during biopsy demonstrate needle tip within the lower pole of the right kidney. Images obtained after biopsy demonstrate small surrounding right renal hematoma, no acute complication. DLP: 764.51 mGy-cm CONCLUSION: CT-guided core random right renal biopsy as described above. -------- FINAL REPORT -------- Dictated By: Tamica Alvarado Dictated Date: 02/01/2025 15:46 ET Assigned Physician: Keesha Conrad Reviewed and Electronically Signed By: Keesha Conrad Signed Date: 02/01/2025 17:36 ET Workstation ID: [id number] Transcribed By: Self Edit Transcribed Date: 02/01/2025 15:57 ET Resident/PA/APPLICATION PERFORMANCE ENGINEER: Tamica Alvarado Procedure Note Keesha Conrad MD - 02/01/2025 INDICATION: Random renal biopsy Technique: Written informed consent was obtained after the risks, benefitsand alternatives were discussed. Prior imaging was reviewed. Patient was placed prone on the CT table and multiple images were obtainedthrough the kidneys. The appropriate area of the skin was draped andprepped in the usual sterile fashion. 2% buffered lidocaine was used as alocal anesthetic. Moderate intravenous sedation was initiated andmaintained for approximately 25 minutes utilizing 1mg Versed and 50mcgFentanyl while the patient was independently monitored by the radiologynurse under the supervision of the interventional radiologist. Under CT fluoroscopic guidance a 17-gauge coaxial needle was advanced intolower pole of the right kidney. A total of 3 23mm samples were obtainedand placed into normal saline. Gel foam was utilized along the tract.Final pathology pending. The patient tolerated the procedure well and leftthe department in stable condition without immediate complications. A 2hour and 4 hour hemoglobin/hematocrit ordered in this patient with historylow HH needing transfusion. FINDINGS: Images obtained during biopsy demonstrate needle tip within the lower poleof the right kidney. Images obtained after biopsy demonstrate small surrounding right renalhematoma, no acute complication. DLP: 764.51 mGy-cm CONCLUSION: CT-guided core random right renal biopsy as described above. -------- FINAL REPORT -------- Dictated By: Tamica Alvarado Dictated Date: 02/01/2025 15:46 ET Assigned Physician: Keesha Conrad Reviewed and Electronically Signed By: Keesha Conrad Signed Date: 02/01/2025 17:36 ET Workstation ID: [id number] Transcribed By: Self Edit Transcribed Date: 02/01/2025 15:57 ET Resident/PA/APPLICATION PERFORMANCE ENGINEER: Tamica Alvarado Catie READ IMG IR PROCEDURES Final Re sult * AP Kidney biopsy (02/01/2025 3:17 PM EDT) Scan Result See Scanned Result 02/09/2025 9:57 PM EDT EXTERNAL LAB (NON-INTERFAC ED) Tissue Right kidney structure / Unknown 02/01/2025 3:17 PM EDT 02/01/2025 3:47 PM EDT Tamica READ LAB PATHOLOGY ORDERABLES Final R esult EXTERNAL LAB (NON-INTERFACED) * Tissue exam (02/01/2025 3:17 PM EDT) Addendum 2 [facility], Pathology Department issued an addendum to add electron microscopy findings. The diagnosis remains unchanged. (See scanned report for full copy including addendum) 02/24/2025 3:28 PM EDT [facility] Addendum electronically signed by Perry Giles MD on 02/24/2025 at 1528 EDT Addendum This case was sent to [facility], Department of Pathology, [place], [place] (CLIA: [id number]). Their diagnosis is summarized as follows: Pathologic Diagnosis: Kidney Biopsy (Needle) Diffuse and nodular diabetic glomerulosclerosis, advanced with severe vascular disease and advanced focal global and segmental glomerulosclerosis - The changes are most likely adaptive and secondary to hemodynamic changes related to the diabetic process Acute tubular injury with focal tubular necrosis and few pus casts - The possibility of pyelonephritis should be ruled out Scattered mesangial C3 deposits by immunofluorescence raising the possibility of a mild C3 dominant glomerulopathy - Can represent a mild/resolving post-infectious glomerulonephritis by immunofluorescence - No evidence of acute or proliferative glomerulonephritis by immunofluorescence - Electron microscopy is pending and results will be reported in an addendum Advanced chronic changes of the parenchyma, including: - Global glomerulosclerosis (37% of glomeruli) - Tubular atrophy and interstitial fibrosis (50-60% of the cortex) - Severe arterial and arteriolar sclerosis The case was discussed with Dr. Sweeney on 02/02/2025 at 12:00 PM. Final Diagnosis by Mag Ingram MD, Electronically signed on Saturday February 08, 2025 at 05:14:47PM (See scanned report for full kidney biopsy diagnosis from [facility], [place], [place]) 02/24/2025 3:28 PM EDT [facility] Addendum electronically signed by Perry Giles MD on 02/09/2025 at 1512 EDT Final Diagnosis Right kidney biopsies for light, immunofluorescence and electron microscopy: -Submitted in toto to [facility], [facility]. See addendum report 02/24/2025 3:28 PM EDT [facility] ([facility]) [facility] at 1040 EDT Gross Description A. Kidney, Right, : Labeled kidney R . Received fresh in saline are 4 kern-pink soft tissue cores, ranging from 0.6 x 0.1 cm to 1.8 x 0.1 cm, which are transferred to formalin for light microscopy, Manish fixative for Immunofluorescence, and Glutaraldehyde for electron microscopy. The specimen is entirely submitted to [facility] for analysis. MAX 02/24/2025 3:28 PM EDT [facility] Disclaimer Unless otherwise specified, all tissue is 10% NB formalin fixed and paraffin embedded. 02/24/2025 3:28 PM EDT [facility] Tissue Right kidney structure / Unknown 02/01/2025 3:17 PM EDT 02/01/2025 3:45 PM EDT Tamica READ LAB PATHOLOGY ORDERABLES Edited Result - Final [facility] [address] [place] [address], * Prepare RBC: 1 Units (02/01/2025 9:01 AM EDT) Only the most recent of2 resultswithin the time period is included. Product Code [id number] 02/01/2025 10:16 AM EDT [facility] Unit Number [id number] 02/02/20 25 10:16 AM EDT [facility] Crossmatch Compatible 02/01/2025 9:42 AM EDT [facility] Dispense Status Transfused 02/01/2025 10:16 AM [facility] Unit ABO Rh ONEG [facility] Expiration Date Time [id number] 02/01/2025 10:16 AM [facility] Unit Blood Type 9500 02/01/2025 10:16 AM EDT [facility] Blood Venous blood specimen / Unknown 02/01/2025 9:01 AM EDT 01/29/2025 1:01 AM EDT us Catie READ BLOOD BANK PRODUCT ORDERAB LES Final Result [facility] [address] [place] [address], [place] [phone] * (ABNORMAL) Urinalysis with reflex microscopic and culture (01/31/2025 6:45 PM EDT) Specific [place] Urine 1.012 1.003 - 1.030 LAB URINALYSIS - AUTOMATED METHOD 01/31/2025 8:37 PM EDT [facility] pH, Urine 6.0 5.0 - 8.0 pH LAB URINALYSIS - AUTOMATED METHOD 01/31/2025 8:[facility] Leukocytes, Urine Negative Negative LAB URINALYSIS - AUTOMATED METHOD 01/31/2025 8:37 PM [facility] Nitrite, Urine Negative Negative LAB URINALYSIS - AUTOMATED METHOD 01/31/2025 8:37 PM [facility] Protein, Urine >=1000(A) <=Trace mg/dL LAB URINALYSIS - AUTOMATED METHOD 01/31/2025 8:37 PM EDT [facility] Glucose, Urine Negative Negative mg/dL LAB URINALYSIS - AUTOMATED METHOD 01/31/2025 8:37 PM EDT [facility] Ketones, Urine Negative Negative mg/dL LAB URINALYSIS - AUTOMATED METHOD 01/31/2025 8:[facility] Urobilinogen , Urine 0.2 0.2 - 1.0 mg/dL LAB URINALYSIS - AUTOMATED METHOD 01/31/2025 8:37 PM EDT [facility] Bilirubin, Urine Negative Negative LAB URINALYSIS - AUTOMATED METHOD 01/31/2025 8:37 PM EDT [facility] Blood, Urine Negative Negative LAB URINALYSIS - AUTOMATED METHOD 01/31/2025 8:37 PM EDT [facility] RBC, Urine 1.2 0 - 4 /HPF LAB URINALYSIS - AUTOMATED METHOD 01/31/2025 8:37 PM EDT [facility] WBC, Urine 12.4(H) 0 - 4 /HPF LAB URINALYSIS - AUTOMATED METHOD 01/31/2025 8:37 PM EDT [facility] Squamous Epithelial, Urine 39 0 - 60 /LPF LAB URINALYSIS - AUTOMATED METHOD 01/31/2025 8:37 PM [facility] Bacteria, Urine Many(A) Negative /HPF LAB URINALYSIS - AUTOMATED METHOD 01/31/2025 8:37 PM [facility] Hyaline Casts, Urine 0.0 0 - 3 /LPF LAB URINALYSIS - AUTOMATED METHOD 01/31/2025 8:37 PM [facility] Urine Urine specimen obtained by clean catch procedure / Unknown Non-blood Collection / Unknown 01/31/2025 6:45 PM EDT 01/31/2025 8:29 PM EDT Catie READ LAB URINE ORDERABLES Final Result [facility] [address] [place] [address], * Burton urine culture tube (01/31/2025 6:45 PM EDT) Extra Tube Hold for add-ons. 01/31/2025 10:03 PM EDT [facility] Comment:Auto resulted. Urine Urine specimen obtained by clean catch procedure / Unknown Non-blood Collection / Unknown 01/31/2025 6:45 PM EDT 01/31/2025 8:29 PM EDT Catie READ LAB URINE ORDERABLES Final Result [facility] [address] [place] [address], [place] [phone] * (ABNORMAL) Culture urine (01/31/2025 6:45 PM EDT) [facility] Signature Culture, Urine >=100,000 CFU/mL Escherichia coli ESBL(A) TOVA 02/02/2025 10:37 AM EDT [facility] Comment: THIS ORGANISM IS POSITIVE FOR EXTENDED SPECTRUM BETA-LACTAMASE (ESBL). EXTENDED SPECTRUM BETA-LACTAMASE PRODUCING ORGANISMS DEMONSTRATE DECREASED ACTIVITY WITH PENICILLINS, CEPHALOSPORINS AND AZTREONAM. This is an edited result. Previous organism was Gram negative bacilli on 02/01/2025 at 1312 EDT. Urine Urine specimen obtained by clean catch procedure / Unknown Non-blood Collection / Unknown 01/31/2025 6:45 PM EDT 01/31/2025 8:37 PM EDT Narrative Organism Antibiotic Method Susceptibility Escherichia coli ESBL Amoxicillin/Clavulanate TOVA 8 ug/ml: Susceptible Escherichia coli ESBL Ampicillin/Sulbactam TOVA 8 ug/ml: Susceptible Escherichia coli ESBL Piperacillin/Tazobactam TOVA <=4 ug/ml: Susceptible Escherichia coli ESBL Cefazolin (Urine) TOVA >=32 ug/ml: Resistant Escherichia coli ESBL Cefoxitin TOVA <=4 ug/ml: Susceptible Escherichia coli ESBL Ceftazidime TOVA 8 ug/ml: Intermediate Escherichia coli ESBL Ceftriaxone TOVA >=64 ug/ml: Resistant Escherichia coli ESBL Cefepime TOVA 16 ug/ml: Resistant Escherichia coli ESBL Meropenem TOVA <=0.25 ug/ml: Susceptible Escherichia coli ESBL Amikacin TOVA 2 ug/ml: Susceptible Escherichia coli ESBL Gentamicin TOVA <=1 ug/ml: Susceptible Escherichia coli ESBL Ciprofloxacin TOVA >=4 ug/ml: Resistant Escherichia coli ESBL Levofloxacin TOVA >=8 ug/ml: Resistant Escherichia coli ESBL Nitrofurantoin TOVA <=16 ug/ml: Susceptible Escherichia coli ESBL Trimethoprim/Sulfa methoxazol e TOVA >=320 ug/ml: Resistant Catie READ LAB MICROBIOLOGY - GENERAL ORDERABLES Final Result [facility] [address] [place] [address], [place] [phone] * US Thoracentesis w Image Guidance Left (01/31/2025 11:53 AM EDT) Anatomical Region Laterality Modality Body Left Ultrasound 01/31/2025 2:58 PM EDT Impressions 01/31/2025 4:24 PM EDT Ultrasound guided left-sided thoracentesis performed with removal of 650 cc of clear yellow fluid. -------- FINAL REPORT -------- Dictated By: Tamica Alvarado Dictated Date: 01/31/2025 14:58 ET Assigned Physician: Keesha Conrad Reviewed and Electronically Signed By: Keesha Conrad Signed Date: 01/31/2025 16:24 ET Workstation ID: [id number] Transcribed By: Self Edit Transcribed Date: 01/31/2025 15:00 ET Resident/PA/APPLICATION PERFORMANCE ENGINEER: Tamica Alvarado Narrative 01/31/2025 4:24 PM EDT HISTORY: Left-sided pleural effusion, shortness of breath PROCEDURE/FINDINGS: Preliminary ultrasound performed documenting moderate left- sided pleural effusion. Skin at the left lung base marked and prepped and draped sterilely. Buffered lidocaine anesthetic placed superficially and deeply. Effusion accessed with a 5 [place] One Step catheter. Catheter connected to suction tubing and 650 cc of fluid drained. Catheter removed during suspended inspiration and a sterile gauze dressing was applied. Completion ultrasound performed showing small remaining left-sided pleural effusion. Thoracentesis well-tolerated. No immediate complication. Fluid sent for requested studies. Procedure Note Keesha Conrad MD - 01/31/2025 HISTORY: Left-sided pleural effusion, shortness of breath PROCEDURE/FINDINGS: Preliminary ultrasound performed documenting moderateleft- sided pleural effusion. Skin at the left lung base marked and prepped and draped sterilely.Buffered lidocaine anesthetic placed superficially and deeply. Effusionaccessed with a 5 [place] One Step catheter. Catheter connected to suctiontubing and 650 cc of fluid drained. Catheter removed during suspendedinspiration and a sterile gauze dressing was applied. Completionultrasound performed showing small remaining left-sided pleural effusion.Thoracentesis well-tolerated. No immediate complication. Fluid sent forrequested studies. IMPRESSION: Ultrasound guided left-sided thoracentesis performed with removal of 650cc of clear yellow fluid. -------- FINAL REPORT -------- Dictated By: Tamica Alvarado Dictated Date: 01/31/2025 14:58 ET Assigned Physician: Keesha Conrad Reviewed and Electronically Signed By: Keesha Conrad Signed Date: 01/31/2025 16:24 ET Workstation ID: [id number] Transcribed By: Self Edit Transcribed Date: 01/31/2025 15:00 ET Resident/PA/APPLICATION PERFORMANCE ENGINEER: Tamica Alvarado us Catie READ IMG US PROCEDURES Final Re sult * Cell count with reflex differential, body fluid (01/31/2025 11:53 AM EDT) Body Fluid Total Nucleated Cells 7 /mm3 LAB HEMETOLOGY METHOD 01/31/2025 2:25 PM EDT [facility] Body Fluid RBC <1,000 /mm3 LAB HEMETOLOGY METHOD 01/31/2025 2:25 PM EDT [facility] Body Fluid Color Straw 01/31/2025 2:25 PM EDT [facility] Body Fluid Clarity Hazy 01/31/2025 2:25 PM EDT [facility] Body Fluid Source Pleural 01/31/2025 2:25 PM T [facility] Pleural Fluid Non-blood Collection / Unknown 01/31/2025 11:53 AM EDT 01/31/2025 12:03 PM EDT Narrative [facility] - 01/31/2025 2:25 PM EDT No reference ranges have been established for body fluids. Clinical correlation recommended. Large clot was present in fluid, interpret Cell Count results accordingly. us Catie READ LAB BODY FLUIDS AND STOOLS ORDERABLES Final Result Performing Organization Address [facility] de Phone Number [facility] [address] [place] [address], [place] [phone] * Culture body fluid with gram stain (01/31/2025 11:53 AM EDT) Fluid Culture No growth at 3 days LAB MICROBIOLOGY METHOD 02/03/2025 10:46 AM EDT [facility] Gram Stain Result No polymorphonuclear leukocytes, No epithelial cells, and No organisms noted 02/03/2025 10:46 AM EDT [facility] Pleural Fluid Structure of left pleural cavity / Unknown Non-blood Collection / Unknown 01/31/2025 11:53 AM EDT 01/31/2025 12:03 PM EDT us Catie READ LAB MICROBIOLOGY - GENERAL ORDERABLES Final Result Performing Organization Address [facility] de Phone Number [facility] [address] [place] [address], [place] [phone] * Protein, body fluid (01/31/2025 11:53 AM EDT) Protein, Fluid 1.1 See Comment g/dL LAB CHEMISTRY METHOD 01/31/2025 2:03 PM EDT [facility] Pleural Fluid Structure of left pleural cavity / Unknown Non-blood Collection / Unknown 01/31/2025 11:53 AM EDT 01/31/2025 12:03 PM EDT Narrative [facility] - 01/31/2025 2:03 PM EDT No reference ranges have been established for body fluids. Clinical correlation recommended. Consignd [place] LAB BODY FLUIDS AND STOOLS ORDERABLES Final Result Performing Organization Address [facility] Co de Phone Number [facility] [address] [place] [address], [place] [phone] * Glucose, body fluid (01/31/2025 11:53 AM EDT) Glucose, Fluid 82 See Comment mg/dL LAB CHEMISTRY METHOD 01/31/2025 2:03 PM EDT [facility] Pleural Fluid Structure of left pleural cavity / Unknown Non-blood Collection / Unknown 01/31/2025 11:53 AM EDT 01/31/2025 12:03 PM EDT [facility] - 01/31/2025 2:03 PM EDT No reference ranges have been established for body fluids. Clinical correlation recommended. [facility] LAB BODY FLUIDS AND STOOLS ORDERABLES Final Result Performing Organization Address [facility] Co de Phone Number [facility] [address] [place] [address], [place] [phone] * pH, body fluid (01/31/2025 11:53 AM EDT) pH, Fluid 9.0 See Comment pH 01/31/2025 1:33 PM EDT [facility] Pleural Fluid Structure of left pleural cavity / Unknown Non-blood Collection / Unknown 01/31/2025 11:53 AM EDT 01/31/2025 12:03 PM EDT [facility] - 01/31/2025 1:33 PM EDT No reference ranges have been established for body fluids. Clinical correlation recommended. Catie A Nano[employer] PA LAB BODY FLUIDS AND STOOLS ORDERABLES Final Result Performing Organization Address [facility]/ZIP Co de Phone Number [facility] [address] [place] [address], [place] [phone] * Non-gynecologic cytology (01/31/2025 11:53 AM EDT) Final Diagnosis A. Pleural Cavity, Pleural fluid right-thoracente sis (ThinPrep, cell block): Negative for malignant cells. 02/02/2025 8:44 AM EDT [facility] at 0844 EDT Specimen A Adequacy Satisfactory for evaluation 02/02/2025 8:44 AM EDT [facility] Gross Description A. Pleural Cavity, Right, Pleural Cavity, Right: Received is 400 ml of cloudy chunky orange fluid. One ThinPrep and one cell block are made Cell block placed in formalin at 1330, total formalin fixation time is 7.5 hours. rp 02/02/2025 8:44 AM EDT [facility] Disclaimer Unless otherwise specified, all tissue is 10% NB formalin fixed and paraffin embedded. Technical cytopathology services provided by [facility], at [address] [place] [address] (CLIA # [id number]/Nu Giles MD, Pillowcase Sewer.) 02/02/2025 8:44 AM EDT [facility] Pleural Fluid Structure of right pleural cavity / Unknown Non-blood Collection / Unknown 01/31/2025 11:53 AM EDT 02/01/2025 1:02 PM EDT us Catie READ LAB CYTOLOGY ORDERABLES Fi nal Result [facility] [address] [place] [address], * (ABNORMAL) Phosphorus (01/31/2025 6:35 AM EDT) Phosphorus 5.2(H) 2.5 - 4.5 mg/dL LAB CHEMISTRY METHOD 01/31/2025 8:03 AM EDT [facility] Blood Venous blood specimen / Unknown Venipuncture / Unknown 01/31/2025 6:35 AM EDT 01/31/2025 7:26 AM EDT Alisa READ LAB BLOOD ORDERABLES Nancy l Result Performing Organization Address City/[facility]/ZIP Co de Phone Number [facility] [address] [place] [address], [place] [phone] * (ABNORMAL) Occult blood stool, guaiac (01/29/2025 4:00 AM EDT) [facility] Occult Blood, Stool #1 Positive( A) Negative 01/29/2025 8:06 AM EDT [facility] Stool Non-blood Collection / Unknown 01/29/2025 4:00 AM EDT 01/29/2025 4:42 AM EDT Jd Lugo MD LAB BODY FLUIDS AND STOOLS ORDERABLES Final Result Performing Organization Address [facility] Co de Phone Number [facility] [address] [place] [address], [place] [phone] * Hepatitis C antibody (01/13/2025 5:55 AM EDT) [facility] Hepatitis C Antibody Negative Negative LAB CHEMISTRY METHOD 01/14/2025 1:01 AM EDT [facility] Blood Venous blood specimen / Unknown Venipuncture / Unknown 01/13/2025 5:55 AM EDT 01/13/2025 6:11 AM EDT Claude Martinez MD LAB BLOOD ORDERABLES Final Result [facility] [address] [place] [address], [place] [phone] * HIV 1,2 antibody, p24 antigen with reflex to differentiation (01/13/2025 5:55 AM EDT) Pathologist [facility] HIV Combo AB/AG Negative Negative LAB CHEMISTRY METHOD 01/14/2025 2:44 AM EDT [facility] Blood Venous blood specimen / Unknown Venipuncture / Unknown 01/13/2025 5:55 AM EDT 01/13/2025 6:11 AM EDT Narrative [facility] - 01/14/2025 2:44 AM EDT This assay is a 4th generation assay allowing for earlier detection of HIV infection by detecting the presence of the HIV-1 p24 antigen as well as the traditional antibodies to HIV type 1 (including group O) and type 2. Use of a 4th generation assay is the current CDC recommendation for HIV screening. Claude Martinez MD LAB BLOOD ORDERABLES Final Result [facility] [address] [place] [address], [place] [phone] * (ABNORMAL) Microalbumin creatinine urine ratio (01/12/2025 11:26 AM EDT) [facility] Creatinine, Urine 36.0 mg/dL LAB CHEMISTRY METHOD 01/12/2025 2:31 PM EDT [facility] Microalb, Ur 5,170.0(H ) 0.0 - 29.0 mg/L LAB CHEMISTRY METHOD 01/12/2025 2:31 PM EDT [facility] Microalb/Crea t Ratio 14,361(H) <30 mg/g creat LAB CHEMISTRY METHOD 01/12/2025 2:31 PM EDT [facility] Urine Urine specimen obtained by clean catch procedure / Unknown Non-blood Collection / Unknown 01/12/2025 11:26 AM EDT 01/12/2025 1:21 PM EDT Alisa READ LAB URINE ORDERABLES Nancy l Result [facility] [address] [place] [address], [place] [phone] * (ABNORMAL) Lipid panel with reflex to direct LDL (12/31/2024 6:11 AM EDT) Cholesterol 209(H) 0 - 200 mg/dL LAB CHEMISTRY METHOD 12/31/2024 5:16 PM EDT [facility] Triglycerides 191(H) 0 - 150 mg/dL LAB CHEMISTRY METHOD 12/31/2024 5:16 PM EDT [facility] HDL 71 >=40 mg/dL LAB CHEMISTRY METHOD 12/31/2024 5:16 PM EDT [facility] LDL Calculated 100 0 - 100 mg/dL LAB CHEMISTRY METHOD 12/31/2024 5:16 PM EDT [facility] Comment:Estimated LDL Calcul ated using equation: Total cholesterol - HDL cholesterol - (Triglycerides/5) VLDL Cholesterol Silvio 38.2 mg/dL LAB CHEMISTRY METHOD 12/31/2024 5:16 PM EDT [facility] Non HDL Chol. (LDL+VLDL) 138 <145 mg/dL LAB CHEMISTRY METHOD 12/31/2024 5:16 PM EDT [facility] Chol/HDL Ratio 2.9 0.0 - 4.4 LAB CHEMISTRY METHOD 12/31/2024 5:16 PM T [facility] Blood Venous blood specimen / Unknown Venipuncture / Unknown 12/31/2024 6:11 AM EDT 12/31/2024 6:49 AM EDT Luis A Griffin MD LAB BLOOD ORDERABLES Final Resu lt [facility] [address] [place] [address], [place] [phone] * (ABNORMAL) Hemoglobin A1c (12/31/2024 6:10 AM EDT) Hemoglobin A1C 6.8(H) <6.5 % LAB CHEMISTRY METHOD 12/31/2024 10:29 AM EDT [facility] Mean Bld Glu Estim. 148 mg/dL LAB CHEMISTRY METHOD 12/31/2024 10:29 AM EDT [facility] Blood Venous blood specimen / Unknown Venipuncture / Unknown 12/31/2024 6:10 AM EDT 12/31/2024 6:49 AM EDT us Luis A Griffin MD LAB BLOOD ORDERABLES Final Resu lt [facility] [address] [place] [address], * GRETA SCREENING DIGITAL (10/24/2020 3:42 PM EDT) Anatomical Region Laterality Modality Mammography 10/24/2020 2:52 PM EDT Narrative 10/24/2020 3:[address] [facility] Diagnostic Imaging Department [address] [place] [address] Patient: KISHA ALVAREZ D.O.B./Age/Sex: 1965 - 55 - F Unit#: [id number] Location/Status: SPDIMAM/REG CLI Mnemonic/Ordering Site: DIGSC/SPMAM Ordering Physician: POLO KAY APPLICATION PERFORMANCE ENGINEER Greta Screening Digital - 10/24/20 - 1519 INDICATION: SCREENING COMPARISON: [facility] and outside mammograms dating back to 05/01/2011 TECHNIQUE: CC and MLO views of the breasts were obtained, using full field digital mammography with 3D tomosynthesis views in the MLO projection. Computer aided detection with the [employer].2-H was employed. FINDINGS: The breasts contain scattered fibroglandular tissues. No suspicious masses, suspicious microcalcifications, or areas of architectural distortion are identified. There are no secondary signs of breast malignancy. Coarse benign-appearing breast calcifications are present bilaterally. IMPRESSION: No specific mammographic evidence of breast malignancy. Lack of an imaging correlate should not deter or delay biopsy of a clinically significant palpable finding. BI-RADS - Category 2 - Benign finding 3342F, 7025F Annual screening mammography is recommended. Patient entered into a reminder system with a target date for the next mammogram. [id number] / [id number] , [id number] Dictating Physician: PETRONA SAHA MD Electronically Signed by: PETRONA SAHA MD Dic Date/Time: 10/24/20 1536 Sign date/Time: 10/24/20 1542 Procedure Note Petrona Saha MD - 05/07/[address] [facility] Diagnostic Imaging Department [address] [place] [address] [id number] Patient: KISHA ALVAREZ/Age/Sex: 1965 - 55 - F Unit#: [id number] Location/Status: [facility] SSDIMA/REG CLI Mnemonic/Ordering Site: [facility] Ordering Physician: POLO KAY APPLICATION PERFORMANCE ENGINEER Greta Screening Digital - 10/24/20 - 1519 INDICATION: SCREENING COMPARISON: [facility] and outside mammograms dating back to 05/01/2011 TECHNIQUE: CC and MLO views of the breasts were obtained, using full field digital mammography with 3D tomosynthesis views in the MLO projection. Computer aided detection with the [employer].2-H was employed. FINDINGS: The breasts contain scattered fibroglandular tissues. No suspicious masses, suspicious microcalcifications, or areas ofarchitectural distortion are identified. There are no secondary signs of breastmalignancy. Coarse benign-appearing breast calcifications are present bilaterally. IMPRESSION: No specific mammographic evidence of breast malignancy. Lack of an imaging correlate should not deter or delay biopsy of aclinically significant palpable finding. BI-RADS - Category 2 - Benign finding 3342F, 7025F Annual screening mammography is recommended. Patient entered into a reminder system with a target date for the next mammogram. [id number] / [id number]) , [id number] Dictating Physician: PETRONA SAHA MD Electronically Signed by: PETRONA SAHA MD Dic Date/Time: 10/24/20 1536 Sign date/Time: 10/24/20 1542 Polo Kay NP IMG BI PROCEDURES Final Re sult from Last 3 Months or Most Recently Relevant to Health Maintenance Additional Health Concerns Infection Onset Date Last Indicated ESBL Comment:Escherichia coli (+)ESBL urine 12/29/2024 01/31/2025 Insurance [employer] MEDICARE Member Subscriber Plan / Payer (Ef fective 2024-Present) Name:KISHA ALVAREZ Relation to Subscriber:Self Name:Kisha Mo Payer ID:[id number] Group ID:[id number] Type:Not on file Address: [address] [place] [id number] [facility] MEDICARE Member Subscriber Plan / Payer (Ef fective 2024-Present) Name:KISHA ALVAREZ Relation to Subscriber:Self Name:Kisha Mo Payer ID:[id number] Group ID:[id number] Type:Not on file Address: [address] [place] [address] Advance Directives Documents on File Type Date Recorded Patient 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 Expl anation Power of Hamper Maker 10/04/2024 8:26 PM Advance Directives and Living Will 08/24/2024 11:30 AM [facility] Advance Directives and Living Will 08/03/2024 2:52 PM Rosetta Alvarez [place] [facility] Advance Directives and Living Will 08/02/2024 10:37 AM Health Care Proxy Advance Directives and Living Will 06/11/2024 1:23 PM PROXY Advance Directives and Living Will 06/11/2024 11:06 AM Advance Directives and Living Will 06/11/2024 9:42 AM Health Care Proxy Advance Directives and Living Will 06/10/2024 8:23 AM Health Care Decision (hx) 12/09/2023 HEALTH CARE PROXY Health Care Decision (hx) 12/09/2023 HEALTH CARE PROXY Health Care Decision (hx) 12/09/2023 HEALTH CARE PROXY * Full Code - Default (Latest Code Status on File) Date Activated Date Inactivated Comments 01/29/2025 1:19 AM 02/02/2025 7:43 PM This is orde r is used when code status has not been discussed with the patient, or code status is otherwise unknown/unconfirmed To update the patient's code status, place a code status order. Do not modify or discontinue any currently active code status orders. * Full Code - Confirmed Date Activated Date Inactivated Comments 01/11/2025 8:27 PM 01/14/2025 9:[address] atus was ascertained in the following way: Code status discussion: discussion with patient To update the patient's code status, place a code status order. Do not modify or discontinue any currently active code status orders. * Full Code - Default Date Activated Date Inactivated Comments 01/11/2025 7:40 PM 01/11/2025 8:27 PM This is orde r is used when code status has not been discussed with the patient, or code status is otherwise unknown/unconfirmed To update the patient's code status, place a code status order. Do not modify or discontinue any currently active code status orders. * Full Code - Default Date Activated Date Inactivated Comments 12/29/2024 9:35 PM 01/04/2025 5:12 PM This is orde r is used when code status has not been discussed with the patient, or code status is otherwise unknown/unconfirmed To update the patient's code status, place a code status order. Do not modify or discontinue any currently active code status orders. * Full Code - Default Date Activated Date Inactivated Comments 09/02/2024 3:57 PM 09/06/2024 3:12 PM This is orde r is used when code status has not been discussed with the patient, or code status is otherwise unknown/unconfirmed To update the patient's code status, place a code status order. Do not modify or discontinue any currently active code status orders. Healthcare Agents on File Name Relationship Healthcare Agent Relationshi p Communication Rosetta Alvarez [facility] Care Agent Yuridia Kim [facility] Care Agent Care Teams Cash Grain Farmer Relationship Specialty [place] [address] [place] [id number] PCP - General Nurse Practitioner 12/28/24
--- OUTSIDE RECORDS SUMMARY | 2025-05-02 01:09 | XMS_ITS | Data Portability ---
Author Organization [facility], Main Office Address [address] [facility], [address] [place] [address] Care Team Providers Care Dental Technician Instructor Name Role Phone JO SILVERMAN - 2ND FLOOR OTHER [facility] Primary Care Provider [phone] Assessment Encounter Date Assessment Date Assessment LastModified by Organization Details LastModified Time 12/30/2023 12/30/2023 I have seen and examined the patient independently and confirmed the findings above with the COCOA MILLING MACHINE OPERATOR student note. Management plan discussed with the COCOA MILLING MACHINE OPERATOR student personally. [email or web address] Not available 12/30/2023 16:22:11 Plan of Treatment Reminders Order Date Submit Date Provider Last Modified By Organization Details Last Modified Time Details Appointments None record ed. Lab None record ed. Referral None record ed. Procedures None record ed. Surgeries None record ed. Imaging None record ed. Medication Orders None record ed. Patient TargetsNo targets recorded. Patient InstructionsNo instructions recorded. Reason for Referral None Reported. Problems Name Problem SNOMED Code Status Onset Date Resolution Date Notes Provider Name and Address Organization Details Recorded Time Hypertensi ve disorder 73920299 Active 2023 MONIE SEWELL NP [address] [facility], [facility] [address], [place], [address], [facility] 4 11:37:27 Insulin treated type 2 diabetes mellitus 147240858 Active 2023 MONIE SEWELL NP [address] [facility], [address], [place], [address], [facility] 4 11:38:13 Hyperlipid emia 33990648 Active 2023 MONIE SEWELL NP [address] [facility], [address], [place], [address], [facility] 4 11:38:21 History of cerebrovas cular accident 955882867 Active 2023 MONIE SEWELL NP [address], [place], [address], [facility] 4 11:38:32 Tobacco user 051331708 Active 2023 MONIE SEWELL NP [address], [address], [place], [address], [facility] 4 11:38:43 Ischemic stroke 643549683 Active 2023 Right sided distal M1 MCA ischemic stroke 11/28/23, failed thrombecto my at [facility]. MONIE SEWELL NP [address] [facility], [address], [place], [address], [facility] 4 11:52:39 Left hemiparesi s 824639075 Active 2023 spastic post R ischemic CVA 11/28/23 MONIE SEWELL NP [address] [facility], [address], [place], [address], [facility] 4 11:54:16 Dysphagia 83476065 Active 2023 due to R ischemic CVA 11/28/23 MONIE SEWELL NP [address] [facility], [address], [place], [address], [facility] 4 11:54:02 Mass of salivary gland 674459999 Active 2023 right sided, seen by ENT Dr. Carver back in 2020 but did not follow up. Recent CT of neck done in ER on 11/21/23 showed right parotid gland mass, 2.4 cm, sent home with ENT referral. MONIE SEWELL NP [address], [address], [place], [address], [facility] 4 11:57:34 Hyperkalem ia 85153027 Active 2023 MONIE SEWELL NP [address], [place], [address], [facility] 4 12:03:01 Liver function tests outside reference range 456392391 Active 2023 MONIE SEWELL NP [address], [place], [address], [facility] 4 12:03:27 Chronic kidney disease 183379997 Active 2023 MONIE SEWELL NP [address], [place], [address], [facility] 4 12:03:52 Diabetic peripheral neuropathy 417730110 Active 2023 Elena Cazares MD [address], [address], [place], [address], [facility] 4 18:46:24 Restless legs syndrome 85026154 Active 2023 Elena Cazares MD [address], [place], [address], [facility] 4 18:53:16 Anemia 666712562 Active 2023 MONIE SEWELL NP [address] [facility], [address], [place], [address], [facility] 4 14:37:35 Problem Notes None recorded. Medical Equipment None Reported. Allergies No known drug allergies Vitals Date Recorded Body height Heart rate Respiratory rate Body temperature Oxygen saturation Systolic And Diastolic Provider Name and Address Organization Details Last Updated DateTime 4 175.26 cm 66 /min 16 /min 98.2 [degF] 98 % 140/87 mm[Hg] MONIE SEWELL NP [address] [facility], [address], [place], [address], [facility] 4 14:24:13 Date Recorded Body height Heart rate Respiratory rate Body temperature Oxygen saturation Systolic And Diastolic Provider Name and Address Organization Details Last Updated DateTime 4 175.26 cm 88 /min 18 /min 98.2 [degF] 97 % 134/58 mm[Hg] MONIE SEWELL NP [address], [address], [place], [address], [facility] 4 10:51:13 Date Recorded Body height Body weight Heart rate Respiratory rate Body temperature Oxygen saturation Systolic And Diastolic Provider Name and Address Organization Details Last Updated DateTime 4 175.26 cm 97820.3 3 g 91 /min 18 /min 97.1 [degF] 97 % 160/60 mm[Hg] Vicenta Lundberg NP [address] [facility] [address], [place], [address], [facility] 4 15:03:59 Date Recorded Body height Body mass index (BMI) Body weight Heart rate Respiratory rate Body temperature Oxygen saturation Systolic And Diastolic Provider Name and Address Organization Details Last Updated DateTime 4 175.26 cm 24.5 kg/m2 49089.3 3 g 81 /min 18 /min 98.2 [degF] 98 % 154/69 mm[Hg] Charline condon [facility] 4 15:20:00 Date Recorded Body height Heart rate Respiratory rate Body temperature Oxygen saturation Systolic And Diastolic Provider Name and Address Organization Details Last Updated DateTime 4 175.26 cm 72 /min 18 /min 98.2 [degF] 99 % 150/68 mm[Hg] MONIE SEWELL NP [address] [facility] [address], [place], [address], [facility] 4 14:12:19 Social History Question Answer Notes LastModified by Organizat ion Details LastModified Time Tobacco Smoking Status Former Smoker hasn't smoked since 11/28/23 when she had stroke Elena Cazares MD [address] [facility] [address], [place], [address], [facility] 12/22/2023 18:36:46 Do You Have An Advance Directive? Yes Information not available 12/22/2023 What Is Your Code Status? Full Code [email or web address] Information not available 12/18/2023 Where Do You Live? Apartment Lives With , [address] Daughter Lives On 1st Fl. [email or web address] Information not available 12/18/2023 Legal Guardian? No Informati on not available 12/22/2023 Do You Have A Medical Power Of Ciso? Yes Has HCP, Not Invoked Information not available 12/22/2023 What Was The Date Of Your Most Recent Tobacco Screening? 12/22/2023 Information not available 12/22/2023 Do You Have An Out Of Hospital DNR? Yes [email or web address] Information not available 12/18/2023 What Is Your Relationship Status? Information not available 12/22/2023 How Much Tobacco Do You Smoke? 1 PPD [email or web address] Information not available 12/18/2023 Has Tobacco Cessation Counseling Been Provided? Yes Information not available 12/18/2023 On What Date Was Tobacco Cessation Counseling Provided? 12/22/2023 Says She No Longer Smokes, Stroke Was Her Answer From God On The Way To Quit Smoking, Does Need Patch, Because She Is Getting Cravings. Information not available 12/22/2023 How Many Years Have You Smoked Tobacco? 40 [email or web address] Information not available 12/18/2023 Sex: Unknown Functional Status Question Answer Note LastModified by Organizat ion Details LastModified Time Do you use any illicit or recreational drugs? No [email or web address] Information not available 12/18/2023 Do you or have you ever used any other forms of tobacco or nicotine? No [email or web address] Information not available 12/18/2023 What is your level of alcohol consumption? None [email or web address] Information not available 12/18/2023 Mental Status None recorded. Family History Relationship Description Onset Age of this Age Resolved Age Notes LastModified by Organization Details LastModified Time Paternal Grandmother Cerebrovascu lar accident [email or web address] Not available 05/2023 12:43:21 Medical History No medical history recorded. Gynecological HistoryNo gynecological history recorded. Obstetrics History GPAL:G 0 P 0 0 0 0 Immunizations Vaccine Type Date Status Note Provider Nam e and Address Organization Details Recorded Time Hep B, unspecified formulation 1 completed Lacey Peña [facility] 12/25/2023 12:29:35 Hep B, unspecified formulation 2 completed Lacey Peña [facility] 12/25/2023 12:29:46 Tdap 1 sada Peña [facility] 12/25/2023 12:30:00 Tdap 6 completed Lacey Peña [facility] 12/25/2023 12:30:09 Pneumococcal Conjugate, unspecified formulation 3 completed Lacey Peña [facility] 12/25/2023 12:31:07 pneumococcal polysaccharide PPV23 1 completed Lacey Peña [facility] 12/25/2023 12:31:25 pneumococcal polysaccharide PPV23 6 completed Laceyelena Peña [facility] 12/25/2023 12:31:33 SARS-COV-2 (COVID-19) vaccine, UNSPECIFIED 1 completed Lacey Peña [facility] 12/25/2023 12:31:56 SARS-COV-2 (COVID-19) vaccine, UNSPECIFIED 1 completed Lacey Peña [facility] 12/25/2023 12:32:07 SARS-COV-2 (COVID-19) vaccine, UNSPECIFIED 2 completed Lacey Peña [facility] 12/25/2023 12:32:13 zoster, unspecified formulation 0 completed Lacey Peña [facility] 12/25/2023 12:32:29 zoster, unspecified formulation 1 completed Laceyelena Peña [facility] 12/25/2023 12:32:36 Past Encounters Encounter ID Performer Location Encounter Start Date Encounter Closed Date Diagnosis/Indication Diagnosis SNOMED-CT Code Diagnosis ICD10 Code Diagnosis IMO Codes Diagnosis Note [id number] MONIE SEWELL NP [address] [address] 12/18/2023 11:32:44 12/19/2023 15:30:47 Ischemic stroke 533077869 I63.9 Presented to [facility] 11/27 with left sided weakness, CTA head and neck significan t for distal right M1 occlusion. Transferre d to [facility], underwent a thrombecto my, M1 thrombus found to be impenetrab le. Started ASA and statin.Tra nsferred to [place] 12/02 - 12/16 for acute rehab, now here for continued care. Residual left sided weakness, dysphagia, aphasia. Plan -PT, OT [facility] and tx.Modifie d diet, advance as tony. (minced moist with nectar thick liquids)Go al BP <140/90ASA 81 mg qdatorvast atin 80 mg qdbaclofen 5 mg tid for left hemiparesi s/tonehepa rin 5000 u bid for DVTp until more active.Fol low up with Neuro, Dr. Kaufman, 01/13. [address] [place] [address]. [phone] 1130 day Holter rec. as oupt.Monit or VS, labs, pain, CSMRefer to Dr. Schwartz, PMRAdjust tx. as needed Goal is to return home. Addendum - BP high with headache - see HTN for POC Left hemiparesis 3083823 00 G81.90 See above, s/p R ischemic CVA 7/12/24PMR consultCon tinue baclofen for tone, adjust as needed Dysphagia 17577013 R13.1 0 See above, s/p R ischemic CVAContinu e modified diet, [facility] Hypertensive disorder 38 038890 I10 Meds adjusted at [place].Cur rently on:coreg 3.125 mg bidamlodip ine 10 mg qdMonitor VS, labs, adjust tx. prn Addendum - BP staying elevated today, goal < 140/80. Also with H/A. Increase coreg to 6.25 mg bid, start tonight, hydralazin e 25 mg x 1 dose this afternoon, and hydralazin e 25 mg q 8 hr, hold for SBP<140. Monitor closely Hyperlipidemia 80603778 E78.5 Atorvastat in 80 mg qd added post CVA - continue.M onitor LFTs q mond. x 3 (current levels with mild elevation) and lipid panel prn Insulin tr eated type 2 diabetes mellitus 425521845 Z79.4 A1C 8.4% todayCurre ntly on:Glipizi de 5 mg bidlantus 24 U q HSlispro SSI - not on JUL, will re-order Addendum BS currently in 300s, will give 6 units of lispro to coverCar b Control dietMonito r intake, BS, adjust meds as needed. Tobacco user 646681616 Z 72.0 >1 ppdContinu e nicoderm patch 14 mg/d - titrate down with goal of discontinu ing. Mass of sa livary gland 046018754 K11.8 Apparently has had since 2020, did not follow up with ENT at thst time.Refer red to ENT Judith MORALES - to notify us of appt. date and time. Hyperkalemia 15265144 E8 7.5 K 5.8, 5.5 at [facility] ars losartan and hydralazin e stoppedK 4.9 todayMonit or CMP q mon. x 3 Chronic ki dney disease 225528050 N18.9 ??Get old records from PCP to verifyGFR 30 at [facility] stoppedMai ntain fluidsMoni tor output.CMP q mon. x 3Avoid nephrotoxi c meds. Liver func tion tests outside reference range 866258114 R94.5 Mild elevation of SGOT SGPT on labs today.On high dose statin - follow q wk. x 3Avoid other hepatotoxi cs Diabetic p eripheral neuropathy 175439043 E11.40 ??VS. RLSRLEHas used meds in past, but unsure of nameAs above, will get records from PCPIn the mean time, add gabapentin 100 mg q HSMonitor [id number] Elena Cazares MD [address] [address] 12/22/2023 17:11:22 12/23/2023 14:45:01 Ischemic stroke 276107152 I63.311 With some recovery post CVA.Good rehab potential. Needs PT/OT for strengthen ing, balance, gait training, safety and function.N eeds [facility] for swallowing , cognition and speech.Con tinue fall precaution s.Monitor for safety. For spasticity , baclofen helping a little, but not enough, will try tizanidine 2 mg q 8 hrs and increase as tolerated. Continue ASA 81 mg qd, atorvastat in 80 mg qd, and heparin 5000 U BID for DVT prophylaxi s until more active.Fol low up with Neuro, Dr. Kaufman, 01/13. [address] [place] [address]. [phone] [facility] arrange 30 day Holter rec. as outpt.Dr. Schwartz, PMR, to follow.Adj ust tx. as needed Left hemiparesis 6950258 00 G81.14 As above. Dysphagia 46290931 R13.1 0 As above.Cont inue modified diet and [facility] tx.Monitor for aspiration . Hypertensive disorder 38 861653 I10 SBP continues to be borderline most of the time. DBP is good.Goal is <140 SBPContinu e carvedilol 6.25 mg BID (increased on 12/18), amlodipine 10 mg qd and hydralazin e 25 mg q 8 hrs-will change parameters to hold if SBP<135.Mo nitor BP and labs Hyperlipidemia 45187407 E78.49 Continue atorvastat in 80 mg qd.Conside r decrease in dose if LFTs remain elevated.M onitor LFTs q week x 3 (not drawn today, ordered for tomorrow) Insulin tr eated type 2 diabetes mellitus 607023054 E11.65 HgA1C 8.4, sugars since here on the high side. Likely due to food brought in by family.Con tinue glipizide 5 mg BID, lantus 24 U qhs and SSI.Encour age keeping to diet parameters .Consider increasing lantus or adding 3rd agent.Tracie tor fingerstic ks TID and HgA1C q 3 months. Tobacco user 513820097 F 17.210 Committed to quitting.C ontinue nicoderm patch 14 mg/d x 1 month, then down to 7 mg x 1-2 months then d/cContinu e to support her in abstinence . Mass of sa livary gland 196833089 K11.8 Apparently has had since 2020, did not follow up with ENT at thst time.Refer red to ENT W. [place] - to notify us of appt. date and time. Hyperkalemia 28279987 E8 7.5 K+ was WNL last wk.No labs done today.Tracie tor CMP q wk. x 3, ordered for tomorrow. Chronic ki dney disease 399393997 N18.32 Appears at this baseline since 2021.Sergo nue to avoid nephrotoxi c meds as able.Monit or labs.Renal consult prn. Liver func tion tests outside reference range 249887161 R94.5 Mild elevation las twk.Rechec k tomorrow.C onsider lowering dose of statin if remains elevated. Abrasion 587581405 S90.4 15A With superficia l abrasion.W ill use abx ointment qAM with gauze covering and then leave open to air at night.Tracie tor for healing. Restless l egs syndrome 42449889 G25.81 Could be neuropathy , but seems to me to be more like RLS.Contin ue gabapentin 100 mg qhsMonitor sxs [id number] MONIE SEWELL NP [facility] [address] [place] [address] 12/23/2023 10:34:11 12/24/2023 19:11:10 Ischemic stroke 647769468 I63.311 With some recovery post CVA.Good rehab potential. Needs PT/OT for strengthen ing, balance, gait training, safety and function.N eeds [facility] for swallowing , cognition and speech.Con tinue fall precaution s.Monitor for safety. For spasticity , baclofen helping a little, but not enough, so now trialing tizanidine 2 mg q 8 hrs with plans to increase as tolerated. Continue ASA 81 mg qd, atorvastat in 80 mg qd, and heparin 5000 U BID for DVT prophylaxi s until more active.Fol low up with Neuro, Dr. Kaufman, 01/13. [address] [place] [address]. [phone] [facility] arrange 30 day Holter rec. as outpt.Dr. Schwartz, PMR, to follow.Adj ust tx. as neededWatc derrick LFTs closely due to high dose statin use and familys note of Nephrologi st recommendi ng to stop. Left hemiparesis 7724891 00 G81.14 As above. Dysphagia 24008806 R13.1 0 As above.Cont inue modified diet and [facility] tx.Monitor for aspiration . Hypertensive disorder 38 194939 I10 SBP continues to be borderline most of the time. DBP is good.Goal is <140 SBPContinu e carvedilol 6.25 mg BID (increased on 12/18), amlodipine 10 mg qd and hydralazin e 25 mg q 8 hrs-will change parameters to hold if SBP<135.Mo nitor BP and labs, continue to adjust as needed. Hyperlipidemia 87111041 E78.49 Continue atorvastat in 80 mg qd.Conside r decrease in dose if LFTs remain elevated.M onitor LFTs q week x 3 (not drawn today, ordered for tomorrow) Insulin tr eated type 2 diabetes mellitus 361514839 E11.65 HgA1C 8.4, sugars since here on the high side. Likely due to food brought in by family.Con tinue glipizide 5 mg BID, lantus 24 U qhs and SSI.Encour age keeping to diet parameters .Consider increasing lantus or adding 3rd agent.Tracie tor fingerstic ks TID and HgA1C q 3 months. Tobacco user [id number] F 17.210 Committed to quitting.C ontinue nicoderm patch 14 mg/d x 1 month, then down to 7 mg x 1-2 months then d/cContinu e to support her in abstinence . Mass of sa livary gland 388336362 K11.8 Apparently has had since 2020, did not follow up with ENT at thst time.Refer red to JALEEL W. [place] - to notify us of appt. date and time. Hyperkalemia 47567555 E8 7.5 K+ 4.9 Monitor CMP q wk. x 3 Chronic ki dney disease 417940232 N18.32 Appears at this baseline since 2021.Sergo nue to avoid nephrotoxi c meds as able.Will stop gabapentin as requested by family, even though it is a very low dose.Monit or labs.Renal consult prn. Liver func tion tests outside reference range 911932685 R94.5 Mild elevation last twk., a little better this weekRechec k friday.Con training representative lowering dose or stopping statin if remains elevated. Restless l egs syndrome 50364870 G25.81 Could be neuropathy , but seems to me to be more like RLS.gabape ntin 100 mg qhs added, but will stop now at request of family.Mon itor sxs closely, may consider an alternate agent if problemati c. Abrasion 593280640 S90.4 15A With superficia l abrasion.W ill use abx ointment qAM with gauze covering and then leave open to air at night.Tracie tor for healing. Anemia 620951664 D64.9 Hgb. dropping, now 8.9Normocy tic.Alicia tly on heparin - hemetest stools x 3Check Fe profile, B12, folate x 1Repeat CBC 12/28Monito r for s/s acive bleed. [id number] MONIE SEWELL NP [facility] [address] [address] 12/25/2023 10:50:07 12/30/2023 15:42:18 Ischemic stroke 426030319 I63.311 With some recovery post CVA.Good rehab potential. Needs PT/OT for strengthen ing, balance, gait training, safety and function.N eeds [facility] for swallowing , cognition and speech.Con tinue fall precaution s.Monitor for safety. For spasticity , baclofen helping a little, but not enough, so now trialing tizanidine 2 mg q 8 hrsper recs. from PMR with plans to increase as tolerated. Reported as not helpful at [place], but will monitor and increase dose as tolerated. Continue ASA 81 mg qd, atorvastat in 80 mg qd, and heparin 5000 U BID for DVT prophylaxi s until more active.Fol low up with Neuro, Dr. Kaufman, 01/13. [address] [place] [address]. [phone] [facility] arrange 30 day Holter rec. as outpt.Dr. Schwartz, PMR now following. Adjust tx. as neededWatc derrick LFTs closely due to high dose statin use and familys note of Nephrologi st recommendi ng to stop. CMP q friday Left hemiparesis 5754449 00 G81.14 As above. Dysphagia 08146218 R13.1 0 As above.Cont inue modified diet and [facility] tx.Monitor for aspiration . Hypertensive disorder 38 556747 I10 SBP continues to be borderline most of the time. DBP is good.Goal is <140 SBPContinu e carvedilol 6.25 mg BID (increased on 12/18), amlodipine 10 mg qd and hydralazin e 25 mg q 8 hrs-change d parameters to hold if SBP<135.Ti zanidine just added, may bring BP down furtherMon itor BP and labs, continue to adjust as needed. Hyperlipidemia 83905865 E78.49 Continue atorvastat in 80 mg qd.Conside r decrease in dose if LFTs remain elevated.M onitor LFTs q week x 3 (not drawn today, ordered for tomorrow) Insulin tr eated type 2 diabetes mellitus 360213475 E11.65 HgA1C 8.4,BS readings all over.Serog nue glipizide 5 mg BID, lantus 24 U qhs and SSI.Encour age keeping to diet parameters .Consider increasing lantus or adding 3rd agent.Tracie tor fingerstic ks TID and HgA1C q 3 months. Tobacco user [id number] F 17.210 Committed to quitting.C ontinue nicoderm patch 14 mg/d x 1 month, then down to 7 mg x 1-2 months then d/cContinu e to support her in abstinence . Mass of sa livary gland 521009076 K11.8 Apparently has had since 2020, did not follow up with ENT at thst time.Refer red to ENT [facility]. [facility] - to notify us of appt. date and time. Hyperkalemia 49256278 E8 7.5 K+ 5.3 Monitor CMP q wk. x 3 Chronic ki dney disease 431905601 N18.32 Appears at this baseline since 2021.Sergo nue to avoid nephrotoxi c meds as able.Will stop gabapentin as requested by family, even though it is a very low dose.Monit or labs.Renal consult prn. Liver func tion tests outside reference range 191723215 R94.5 Mild elevation last twk., a little better this weekRechec k friday.Con training representative lowering dose or stopping statin if remains elevated. Restless l egs syndrome 33514903 G25.81 Could be neuropathy , but seems to me to be more like RLS.gabape ntin 100 mg qhs added, but stopped per request of family.Pt. reporting sx. todayAdd requip 0.25 mg q HS, titrate up as needed/tony eratedMoni tor sxs closely Abrasion 031776192 S90.4 15A With superficia l abrasion.W ill use abx ointment qAM with gauze covering and then leave open to air at night.Tracie tor for healing. Anemia 606116821 D64.9 Hgb. dropping as low as 8.9, recheck 9.2Normocy tic.Alicia tly on heparin - hemetest stools x 3Check Fe profile, B12, folate x 1 - all NLRepeat CBC 12/28Monito r for s/s active bleed. [id number] Vicenta Lundberg NP [facility] [address] [place] [address] 12/26/2023 15:00:46 12/30/2023 15:52:03 Ischemic stroke 312117464 I63.311 With some recovery post CVA.Good rehab potential. Needs PT/OT for strengthen ing, balance, gait training, safety and function.N eeds [facility] for swallowing , cognition and speech.Con tinue fall precaution s.Monitor for safety. cont-tizan idine 2 mg q 8 hrs per recs. from PMR with plans to increase as tolerated. (baclofen dc'd as not helpful)-A SA 81 mg qdatorvast atin 80 mg qdheparin 5000 U BID for DVT prophylaxi s until more active.Fol low up with Neuro, Dr. Kaufman, 01/13. [address] [place] [address]. [phone] 11[facility] arrange 30 day Holter rec. as outpt.Dr. Schwartz, PMR now following. Adjust tx. as neededcont watching LFTs closely due to high dose statin use and familys note of Nephrologi st recommendi ng to stop. CMP q friday Left hemiparesis 7105045 00 G81.14 As above. Dysphagia 21769876 R13.1 0 As above.Cont inue modified diet and [facility] tx.Monitor for aspiration . Hypertensive disorder 38 462492 I10 SBP continues to be borderline high most of the time. DBP is good.Goal is <140 SBPContinu ecarvedilo l 6.25 mg BID (increased on 12/18)amlodi pine 10 mg qdhydralaz ine 25 mg q 8 hrs-change d parameters to hold if SBP<135.Ti zanidine just added, may bring BP down furtherMon itor BP and labs, continue to adjust as neededlabs on friday. Hyperlipidemia [id number] E78.49 Continueat orvastatin 80 mg qdConsider decrease in dose if LFTs remain elevated.M onitor LFTs q week x 3 (not drawn today, ordered for tomorrow) Insulin tr eated type 2 diabetes mellitus [id number] E11.65 HgA1C 8.4,BS 100-300sCo ntinueglip izide 5 mg BID12/25 increase lantus 24 to 28 U qhs and SSI.Encour age keeping to diet parameters .adjust and titrate as neededMoni tor fingerstic ks TID and HgA1C q 3 months. Tobacco user [id number] F 17.210 Committed to quitting.C ontinuenic oderm patch 14 mg/d x 1 month, then down to 7 mg x 1-2 months then d/cContinu e to support her in abstinence . Mass of sa livary gland 230540859 K11.8 Apparently has had since 2020, did not follow up with ENT at that time.Refer red to ENT [facility]. [place] - to notify us of appt. date and time. Hyperkalemia [id number] E8 7.5 K+ 5.3 on 12/23Monitor CMP q wk. x 3 Chronic ki dney disease 459014736 N18.32 Appears at this baseline since 2021.Sergo nue to avoid nephrotoxi c meds as able.gabap entin stopped as requested by family, even though it is a very low dose.Monit or labs.Renal consult prn. Liver func tion tests outside reference range 925829577 R94.5 Mild elevation last twk., a little better this weekRechec k friday.Con training representative lowering dose or stopping statin if remains elevated. Restless l egs syndrome 36390263 G25.81 ? RLS.12/25 pt/family thought she received a dose overnight and was off in the am. When explained she did not receive today she agreed to trial tonight.ga bapentin 100 mg qhs added, but stopped per request of family.pt reports not wanting to be on meds in general Pt . reporting sx. todaycontr equip 0.25 mg q HS, titrate up as needed/tony eratedMoni tor sxs closely Abrasion [id number] S90.4 15A With superficia l abrasion.W ill use abx ointment qAM with gauze covering and then leave open to air at night.Tracie tor for healing. Anemia 463906713 D64.9 Hgb. dropping as low as 8.9, recheck 9.2 on 12/23Normocy tic.Alicia tly on heparin - hemetest stools x 3Check Fe profile, B12, folate x 1 - all NLRepeat CBC 12/28Monito r for s/s active bleed. [id number] MONIE SEWELL, DINAH [facility] [address] [place] [address] 12/30/2023 12:37:56 12/31/2023 13:33:40 Restless legs syndrome 85930049 G25.81 possible RLS.12/25 initiated Requip 0.25mg at bedtimeRem ains off gabapentin Pt. reporting no sx. todaycontr equip 0.25 mg q HS, titrate up as needed/tony eratedMoni tor sxs closely Ischemic stroke [id number] 2 I63.311 With some recovery post CVA.Contin ues to work with PT/OT- making progressCo ntinues to need PT/OT for strengthen ing, balance, gait training, safety and function.C ontinues to need [employer] for swallowing , cognition and speech.Con tinue fall precaution s.Monitor for safety. continue:t izanidine 2 mg q 8 hrs per recs. from PMR- monitor for need to increaseAS A 81 mg qdatorvast atin 80 mg qdheparin 5000 U BID for DVT prophylaxi s until more active.Fol low up with Neuro, Dr. Kaufman, 01/13. [address] [place] [address]. [phone] [facility] arrange 30 day Holter rec. as outpt.Dr. Schwartz, PMR now following. Adjust tx. as neededcont watching LFTs closely due to high dose statin use and family's note of Nephrologi st recommendi ng to stop.Sergo nue with CMP q friday Insulin tr eated type 2 diabetes mellitus 488978522 E11.65 HgA1C 8.4 (12/23/23),B S 100-300sLa ntus increased on 12/26/23, may need to consider another increase or add another agentConti nue:glipiz jared 5 mg BIDLantus 28 U qhs and SSI.Encour age to follow dietadjust and titrate as neededSeemai tor fingerstic ks TID and HgA1C q 3 months. Left hemiparesis [id number] [id number] G81.14 As above. Dysphagia 68595398 R13.1 0 Continues to work with [employer] for swallowing , cognition and speech.Con anant modified diet and [employer] tx.Monitor for aspiration . Hypertensive disorder 38 745496 I10 SBP continues to be borderline high most of the time. DBP is good.Goal remains <140 SBPContinu ecarvedilo l 6.25 mg BID (increased 12/19/23)aml odipine 10 mg qdhydralaz ine 25 mg q 8 hrs-change d parameters to hold if SBP<135.Ti zanidine added on 12/22/23, may bring BP down further but no changes yet. 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 [facility] - to notify us of appt. date and time.Monit or for sx Hyperkalemia 29157329 E8 7.5 K+ 4.6 on 12/29Monito r CMP q wk. Chronic ki dney disease 329175860 N18.32 Baseline since 2021.Sergo nue to avoid nephrotoxi c meds as able.Remai ns off gabapentin as requested by familySeemai tor labs.Renal consult prn. Liver func tion tests outside reference range 650668973 R94.5 Labs improved.L abs- SGPT 45, SGOT 17.Conside r lowering dose or stopping statin if remains elevated. Abrasion 843651893 S90.4 15A With superficia l abrasion, left 4th and 5th toesContin ue to use abx ointment qAM with gauze covering and then leave open to air at night.Tracie tor for healing. Anemia 552857592 D64.9 Hgb. dropping as low as 8.9, recheck 9.2 on 12/23, recheck today 8.1Normocy tic.Jessen tly on heparin 5000U BIDFe profile, B12, folate x 1 - all NLhemetest stools x 3 - discussed with nsg.CBC 01/05Monito r for s/s active bleed. [id number] MONIE SEWELL NP [facility] [address] [address] 01/01/2024 14:10:57 01/05/2024 16:05:44 Restless legs syndrome 10685772 G25.81 possible RLS.12/25 initiated Requip 0.25mg at bedtimeRem ains off gabapentin Pt. reporting no sx. todaycontr equip 0.25 mg q HS, titrate up as needed/tony eratedMoni tor sxs closely Ischemic stroke 44266116 2 I63.311 With some recovery post CVA.Contin ues to work with PT/OT- making progressCo ntinues to need PT/OT for strengthen ing, balance, gait training, safety and function.C ontinues to need [employer] for swallowing , cognition and speech.Con tinue fall precaution s.Monitor for safety. continue:t izanidine 2 mg q 8 hrs per recs. from PMR- monitor for need to increaseAS A 81 mg qdatorvast atin 80 mg qdheparin 5000 U BID for DVT prophylaxi s until more active.Fol low up with Neuro, Dr. Kaufman, 01/13. [address] [place] [address]. [phone] arrange 30 day Holter rec. as outpt.Dr. Schwartz, PMR now following. Adjust tx. as neededcont watching LFTs closely due to high dose statin use and family's note of Nephrologi st recommendi ng to stop.Sergo nue with CMP q friday Left hemiparesis 9585066 00 G81.14 As above. Anemia 903912545 D64.9 Hgb. dropping as low as 8.9, recheck 9.2 on 12/23, recheck this week 8.1Normocy tic.Alicia tly on heparin 5000U BIDFe profile, B12, folate x 1 - all NLhemetest stools x 3 - discussed with nsg. as not done yet.CBC 01/05Monito r for s/s active bleed. Insulin tr eated type 2 diabetes mellitus 305133855 E11.65 HgA1C 8.4 (12/23/23),B S 100-300sLa ntus increased on 12/26/23, may need to consider another increase or add another agentConti nue:glipiz jared 5 mg BIDLantus 28 U qhs and SSI.Encour age to follow dietadjust and titrate as neededMoni tor fingerstic ks TID and HgA1C q 3 months. Dysphagia 57423724 R13.1 0 Continues to work with [employer] for swallowing , cognition and speech.Con anant modified diet and [employer] tx.Monitor for aspiration . Hypertensive disorder 38 093045 I10 SBP continues to be borderline high most of the time. DBP is good.Goal remains <140 SBPContinu ecarvedilo l 6.25 mg BID (increased 12/19/23)aml odipine 10 mg qdhydralaz ine 25 mg q 8 hrs-change d parameters to hold if SBP<135.Ti zanidine added on 12/22/23, may bring BP down further but no changes yet. Will see if tizanidine dose increases before adjusting BP meds furtherMon itor BP and labs, continue to adjust as needed Hyperlipidemia 14424448 E78.49 Continue atorvastat in 80 mg qd12/30/23 Labs improved- SGPT 45, SGOT 17Monitor labs periodical ly Tobacco user [id number] F 17.210 Remains committed to quitting.C ontinue nicoderm patch 14 mg/d x 1 month, then down to 7 mg x 1-2 months then d/cContinu e to provide supports Mass of sa livary gland 783446116 K11.8 Hx of had since 2020, did not follow up with ENT at that time.Refer red to ENT [facility]. [facility] - to notify us of appt. date and time.Monit or for sx Hyperkalemia 93692081 E8 7.5 K+ 4.6 on 12/29Monito r CMP q wk. Chronic ki dney disease 504104058 N18.32 Baseline since 2021.Sergo nue to avoid nephrotoxi c meds as able.Remai ns off gabapentin as requested by [facility] labs.Renal consult prn. Liver func tion tests outside reference range 842199062 R94.5 Labs improved.L abs- SGPT 45, SGOT 17.Conside r lowering dose or stopping statin if remains elevated. Abrasion 007129960 S90.4 15A With superficia l abrasion, left 4th and 5th toesContin ue to use abx ointment qAM with gauze covering and then leave open to air at night.Tracie tor for healing. Health Concerns Section Related Observation LastModified by Organization Detai ls LastModified Time None Recorded Concern Status LastModified by Organization Details LastModified Time None Recorded Advance Directives Directive Y: Payers Insurance Date Sequence Insurance Name Policy Number Policy Ceja Covered Member ID Ceja Member ID Guarantor Name 12/18/2023 2 [place] [facility] Kisha Vickers [id number] Kisha Vickers (Kim) 12/18/2023 1 [place] B[place] [employer] Kisha Vickers [id number] Kisha Vickers (Kim) Notes Date Note Type Note Provider Name and Address Organization Details Recorded Time 12/23/2023 text/html Kisha is seen today for an acute visit. She is a 58 yo woman who is here for subacute rehab after acute rehab at [place], and previous hospitalization at [place] for a right MCA stroke, s/p thrombectomy. She initially presented to the [facility] ED on 11/27 with c/o left facial droop and left sided numbness.Briefly, per Miguel d/c summary: 58-year-old female with past medical history including hypertension, insulin-dependent type 2 diabetes, hyperlipidemia, prior CVA with no residual deficits, tobacco user. Patient presented to [facility] emergency room on 11/27 for chief complaint of left-sided facial droop and weakness. Patient's last known well time was 9:30 PM the night prior. Upon presentation patient was noted to have persistent left-sided deficits. CT head unremarkable for acute intracranial pathology. CTA head and neck significant for distal right M1 occlusion with patency of distal branches. Patient was transferred to [facility] for nonintervention and evaluation for endovascular thrombectomy. Neurology was consulted. A repeat head CT perfusion showed a small ischemic stone in the right lateral MCA territory with no core infarct. Patient subsequently underwent a thrombectomy. during the thrombectomy 3 thrombectomy passes were trailed however the M1 thrombus was nearly impenetrable with a TICI scale of 0 indicating no reperfusion. Subsequently patient was admitted to the ICU for a right distal M1 MCA ischemic stroke with failed thrombectomy. Patient was initiated on aspirin and statin. Speech evaluated and recommended pur ed diet with moderately thick liquids. Upon discharge it is recommended that patient wear a Holter monitor for 30 days and follow-up with [facility]. She was transferred to [place] on 12/02. She participated with intensive rehab and made good progress.She was started on baclofen for spastic hemiplegia, had oversedation and was changed to cyclobenzaprine, which didn't help and she was changed back to baclofen, but at a lower dose.BP was difficult to manage and she required hydralazine prn, but this improved and hydralazine was not continued on d/c.She had incidental finding of a right salivary gland mass Patient was previously followed by ENT (Dr Carver) for right parotid mass, last seen in office on 09/01/2020 after completing needle aspiration biopsy on 08/25/2020 which was nondiagnostic, it was recommended that patient complete ultrasound-guided needle aspiration biopsy at that time yet patient then no showed her appointment on 09/28/2020 and 10/11/2020 as per report by office-CT Neck 11/21/23 showed 1. Right parotid gland mass measuring up to 2.4 cm. Recommend MR of the neck with contrast for further characterization. 2. Multiple normal-sized jugular chain lymph nodes present bilaterally. -Patient was seen in ER on 11/21/23 and at time of discharge referred to ENT-Patient will need to follow-up with PCP for new referral to ENT after discharge She was transferred here on 12/16.Since here she has been working with rehab. She continues to be mod-max assist for mobility, transfers and ADLs. Still with dense left sided weakness. Her BP was quite elevated right ater admission and carvedilol was increased and hydralazine was restarted. BP since med adjustment better but most still above goal BP < 140/90.Her BS had also been quite high and SSI was restarted on 12/18. Review of BS - most 200s-300s.Labs monitored, sl. drop in H/H, Bun/Cr. stable, LFTs with slight improvement. Note left from family stating gabapentin and statin should be stopped per [facility] due to her kidney function. Gabapentin was added shortly after admission to help with RLS/neuropathy. Upon exam, Kisha is sitting on the side of her bed, working with PT. Family at bedside, supportive. Kisha's main complaint is pain - bilat knees, R>L, and left sided back/flank pain. She states she is eating well, no GI concerns. No SOB, CP, dizziness. 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 MONIE SEWELL, DINAH [address], [address], [place], [address], [facility] - [facility] 12/23/2023 14:48:42 12/25/2023 text/html Kisha is seen today for an acute visit. She is a 58 yo woman who is here for subacute rehab after acute rehab at [place], and previous hospitalization at [facility] [place] for a right MCA stroke, s/p thrombectomy. She initially presented to the [facility] ED on 11/27 with c/o left facial droop and left sided numbness.Briefly, per Miguel d/c summary: 58-year-old female with past medical history including hypertension, insulin-dependent type 2 diabetes, hyperlipidemia, prior CVA with no residual deficits, tobacco user. Patient presented to [facility] emergency room on 11/27 for chief complaint of left-sided facial droop and weakness. Patient's last known well time was 9:30 PM the night prior. Upon presentation patient was noted to have persistent left-sided deficits. CT head unremarkable for acute intracranial pathology. CTA head and neck significant for distal right M1 occlusion with patency of distal branches. Patient was transferred to [facility] for nonintervention and evaluation for endovascular thrombectomy. Neurology was consulted. A repeat head CT perfusion showed a small ischemic stone in the right lateral MCA territory with no core infarct. Patient subsequently underwent a thrombectomy. during the thrombectomy 3 thrombectomy passes were trailed however the M1 thrombus was nearly impenetrable with a TICI scale of 0 indicating no reperfusion. Subsequently patient was admitted to the ICU for a right distal M1 MCA ischemic stroke with failed thrombectomy. Patient was initiated on aspirin and statin. Speech evaluated and recommended pur ed diet with moderately thick liquids. Upon discharge it is recommended that patient wear a Holter monitor for 30 days and follow-up with [facility]. She was transferred to [place] on 12/02. She participated with intensive rehab and made good progress.She was started on baclofen for spastic hemiplegia, had oversedation and was changed to cyclobenzaprine, which didn't help and she was changed back to baclofen, but at a lower dose.BP was difficult to manage and she required hydralazine prn, but this improved and hydralazine was not continued on d/c.She had incidental finding of a right salivary gland mass Patient was previously followed by ENT (Dr Carver) for right parotid mass, last seen in office on 09/01/2020 after completing needle aspiration biopsy on 08/25/2020 which was nondiagnostic, it was recommended that patient complete ultrasound-guided needle aspiration biopsy at that time yet patient then no showed her appointment on 09/28/2020 and 10/11/2020 as per report by office-CT Neck 11/21/23 showed 1. Right parotid gland mass measuring up to 2.4 cm. Recommend MR of the neck with contrast for further characterization. 2. Multiple normal-sized jugular chain lymph nodes present bilaterally. -Patient was seen in ER on 11/21/23 and at time of discharge referred to ENT-Patient will need to follow-up with PCP for new referral to ENT after discharge She was transferred here on 12/16. So far while here she continues to work with rehab, slow progress due to dense left sided weakness. PMR now involved with care, muscle relaxer just changed to tizanidine 2 mg tid. Monitoring VS - BP better but still above goal at times.Monitoring BS - running all over the place, unsure if true fasting and pre meal readings.Monitoring labs - stable. Gabapentin added for RLS, but stopped per family request stating her [facility] doesn't want her taking gabapentin or atorvastatin. Upon exam, Kisha is laying in bed, still with pain, anel. left side. She is also complaining of jumping legs again, not sleeping well because of this. 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 MONIE SEWELL NP [address] [place] [address], [address], [place], [address], [facility] 12/25/2023 11:22:55 12/26/2023 text/html Pt is seen today for an acute visit. Kisha is a 58 yo woman who is here for subacute rehab after acute rehab at [place], and previous hospitalization at [facility] for a right MCA stroke, s/p thrombectomy. She initially presented to the [facility] ED on 11/27 with c/o left facial droop and left sided numbness.She was transferred here on 12/16 for rehab. While here she was started on requip for restless legs on 12/24 with [employer], however states she does not want to have this medication anymore due to having hallucination last night that she was at home when she woke up this am. After review in JUL and conversation with nursing she never received this medication as it was not in from pharmacy. She is made aware of this and she states she still wants to trial this med still. She also states she would like to go home and was prescribed sertraline for depression from outside psych and refuses to take this also. She currently states she does not want to see the psych provider here. NOTE: So far while here she continues to work with rehab, slow progress due to dense left sided weakness. She was started on a muscle relaxer tizanidine 2 mg tid which is a little better. NOTE: Gabapentin added for RLS, but stopped per family request stating her [facility] doesn't want her taking gabapentin or atorvastatin and stopped. On review of her BS, they are labile and will increase lantus today. On exam,she is laying in bed, leans toward her left side.She denies other concerns today and would like to continue current plan. She feels she must have had a weird dream and wants to trial the med. of note; Briefly, per Miguel d/artemio summary: 58-year-old female with past medical history including hypertension, insulin-dependent type 2 diabetes, hyperlipidemia, prior CVA with no residual deficits, tobacco user. Patient presented to [facility] emergency room on 11/27 for chief complaint of left-sided facial droop and weakness. Patient's last known well time was 9:30 PM the night prior. Upon presentation patient was noted to have persistent left-sided deficits. CT head unremarkable for acute intracranial pathology. CTA head and neck significant for distal right M1 occlusion with patency of distal branches. Patient was transferred to [facility] for nonintervention and evaluation for endovascular thrombectomy. Neurology was consulted. A repeat head CT perfusion showed a small ischemic stone in the right lateral MCA territory with no core infarct. Patient subsequently underwent a thrombectomy. during the thrombectomy 3 thrombectomy passes were trailed however the M1 thrombus was nearly impenetrable with a TICI scale of 0 indicating no reperfusion. Subsequently patient was admitted to the ICU for a right distal M1 MCA ischemic stroke with failed thrombectomy. Patient was initiated on aspirin and statin. Speech evaluated and recommended pur ed diet with moderately thick liquids. Upon discharge it is recommended that patient wear a Holter monitor for 30 days and follow-up with [facility]. She was transferred to [place] on 12/02. She participated with intensive rehab and made good progress. She was started on baclofen for spastic hemiplegia, had oversedation and was changed to cyclobenzaprine, which didn't help and she was changed back to baclofen, but at a lower dose. BP was difficult to manage and she required hydralazine prn, but this improved and hydralazine was not continued on d/c. She had incidental finding of a right salivary gland mass Patient was previously followed by ENT (Dr Carver) for right parotid mass, last seen in office on 09/01/2020 after completing needle aspiration biopsy on 08/25/2020 which was nondiagnostic, it was recommended that patient complete ultrasound-guided needle aspiration biopsy at that time yet patient then no showed her appointment on 09/28/2020 and 10/11/2020 as per report by office-CT Neck 11/21/23 showed 1. Right parotid gland mass measuring up to 2.4 cm. Recommend MR of the neck with contrast for further characterization. 2. Multiple normal-sized jugular chain lymph nodes present bilaterally. -Patient was seen in ER on 11/21/23 and at time of discharge referred to ENT-Patient will need to follow-up with PCP for new referral to ENT after discharge Vicenta Lundberg NP [address], [address], [place], [address], [place] - [facility] 12/26/2023 15:31:39 12/30/2023 text/html ROS as noted in the HPI Kisha is seen today for an acute visit. Kisha is a 58 yo female who is here for SNF rehab services after acute rehab at [place], and previous hospitalization at [facility] for a right MCA stroke and s/p thrombectomy. Kisha presented to the [facility] ED on 11/27 with left facial droop and left sided numbness. According to dc summary from [place]: she presented to [facility] ER on 11/27 for CC left-sided facial droop and weakness. Patient's last known well time was 9:30 PM the night prior. Patient was noted to have persistent left-sided deficits. CT head unremarkable for acute intracranial pathology. CTA head and neck significant for distal right M1 occlusion with patency of distal branches. Patient was transferred to [facility] – [place] for nonintervention and evaluation for endovascular thrombectomy. Neurology was consulted. repeat head CT perfusion showed a small ischemic stone in the right lateral MCA territory with no core infarct. Patient underwent a thrombectomy. during the thrombectomy procedure, 3 thrombectomy passes were trailed however the M1 thrombus was nearly impenetrable with a TICI scale of 0 indicating no reperfusion. Subsequently patient was admitted to the ICU for a right distal M1 MCA ischemic stroke with failed thrombectomy. Patient was initiated on aspirin and statin. [facility] consulted and recommended pur ed diet with moderately thick liquids. Upon discharge it is recommended that patient wear a Holter monitor for 30 days and follow-up with [facility]. She was transferred to [place] on 12/02. She participated with intensive rehab and made good progress.She was started on baclofen for spastic hemiplegia, had oversedation and trialed cyclobenzaprine but was not effective and was changed back to baclofen, but at a lower dose. BP was difficult to manage and she required hydralazine prn, but this improved and hydralazine was not continued on d/c. She had incidental finding of a right salivary gland mass Patient was previously followed by ENT (Dr Carver) for right parotid mass, last seen in office on 09/01/2020 after completing needle aspiration biopsy on 08/25/2020 which was nondiagnostic, it was recommended that patient complete ultrasound-guided needle aspiration biopsy at that time yet patient then no showed her appointment on 09/28/2020 and 10/11/2020 as per report by office-CT Neck 11/21/23 showed 1. Right parotid gland mass measuring up to 2.4 cm. Recommend MR of the neck with contrast for further characterization. 2. Multiple normal-sized jugular chain lymph nodes present bilaterally. -Patient was seen in ER on 11/21/23 and at time of discharge referred to ENT-Patient will need to follow-up with PCP for new referral to ENT after discharge She was transferred here on 12/16. Since here she continues to work with rehab with slow progress due to dense left sided weakness. PMR involved with care, meds being adjusted, recently changed baclofen to tizanidine 2 mg tid, seems to be tolerating ok so far.Concern of some hallucinations the end of last week, ? related to requip but did not start the med until the day after this issue. So far, she has been tolerating the med without further reports of hallucinations. Monitoring VS - BP remains 140'-160's, above goal.Monitoring BS - running all over the place, unsure if true fasting and pre meal readings. FBS on JUL range from 100's-300's, she is asymptomatic, Lantus was increased last visit (12/26/23) to 28 Units without significant drop in BS so far.Monitoring labs - stable today except for another drop in Hgb - now 8.1. No s/s active bleed reported. No stools hemetested yet despite order. LFTs now WNR. Upon exam, Kisha is laying in bed, quiet, alert, NAD. States she feels fine no c/o MOSQUERA, no c/o pain/disc, no SOB, No CP or pressure, no c/o GI/ issues. 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 MONIE SEWELL, DINAH [address], [address], [place], [id number], [facility] [employer] [facility] 12/30/2023 20:17:57 01/01/2024 text/html ROS as noted in the HPI Kisha is seen today for discharge. Per pt./family request, she is transferring to [facility] today for continued care. She is a 58 yo female who is here for SNF rehab services after acute rehab at [place], and previous hospitalization at [place] for a right MCA stroke and s/p thrombectomy. Kisha presented to the [facility] ED on 11/27 with left facial droop and left sided numbness. According to dc summary from [place]: she presented to [facility] ER on 11/27 for CC left-sided facial droop and weakness. Patient's last known well time was 9:30 PM the night prior. Patient was noted to have persistent left-sided deficits. CT head unremarkable for acute intracranial pathology. CTA head and neck significant for distal right M1 occlusion with patency of distal branches. Patient was transferred to [facility] [place] for nonintervention and evaluation for endovascular thrombectomy. Neurology was consulted. repeat head CT perfusion showed a small ischemic stone in the right lateral MCA territory with no core infarct. Patient underwent a thrombectomy. during the thrombectomy procedure, 3 thrombectomy passes were trailed however the M1 thrombus was nearly impenetrable with a TICI scale of 0 indicating no reperfusion. Subsequently patient was admitted to the ICU for a right distal M1 MCA ischemic stroke with failed thrombectomy. Patient was initiated on aspirin and statin. [facility] consulted and recommended pur ed diet with moderately thick liquids. Upon discharge it is recommended that patient wear a Holter monitor for 30 days and follow-up with [facility]. She was transferred to [place] on 12/02. She participated with intensive rehab and made good progress.She was started on baclofen for spastic hemiplegia, had oversedation and trialed cyclobenzaprine but was not effective and was changed back to baclofen, but at a lower dose. BP was difficult to manage and she required hydralazine prn, but this improved and hydralazine was not continued on d/c. She had incidental finding of a right salivary gland mass - Patient was previously followed by ENT (Dr Carver) for right parotid mass, last seen in office on 09/01/2020 after completing needle aspiration biopsy on 08/25/2020 which was nondiagnostic, it was recommended that patient complete ultrasound-guided needle aspiration biopsy at that time yet patient then no showed her appointment on 09/28/2020 and 10/11/2020 as per report by office-CT Neck 11/21/23 showed 1. Right parotid gland mass measuring up to 2.4 cm. Recommend MR of the neck with contrast for further characterization. 2. Multiple normal-sized jugular chain lymph nodes present bilaterally. -Patient was seen in ER on 11/21/23 and at time of discharge referred to ENT-Patient will need to follow-up with PCP for new referral to ENT after discharge She was transferred here on 12/16. Since here she continues to work with rehab with slow progress due to dense left sided weakness. PMR (Dr. Schwartz) involved with care, meds being adjusted, recently changed baclofen to tizanidine 2 mg tid, seems to be tolerating ok so far.C/O RLS - added requip 0.25 mg q HS, tolerating and working well so far.Concern of some hallucinations the end of last week, ? related to requip but did not start the med until the day after this issue. So far, she has been tolerating the med without further reports of hallucinations.Monito ring VS - BP remains 140'-160's, above goal.Monitoring BS - running all over the place, unsure if true fasting and pre meal readings. FBS on JUL range from 100's-300's, she is asymptomatic, Lantus was increased last visit (12/26/23) to 28 Units without significant drop in BS so far.Monitoring labs - stable today except for another drop in Hgb - now 8.1. No s/s active bleed reported. No stools hemetested yet despite order. LFTs now WNR. Upon exam, Kisha is up in her w/c, alert, in good spirits. She offers no complaints this afternoon prior to transfer. 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 MONIE SEWELL NP [address], [address], [place], [id number], [facility] 01/01/2024 14:19:57 OBGyn Episode No OBEpisode recorded.
--- OUTSIDE RECORDS SUMMARY | 2025-05-02 01:09 | XMS_ITS | Clinical Summary ---
Author Organization [facility] Address [address] [place] [phone] Phone Care Team Providers Care Marketing Recruiter Name Role Phone Pcp, Not Required Primary Care Provider Unavaila ble Encounters Date Type Department Care Team Description 02/02/2025 10:46 AM EDT - 02/02/2025 11:59 PM EDT Hospital Encounter [facility] Anatomic Pathology [address] [place] [id number] Discharge Disposition: Home or Self Care from Last 3 Months Social History Tobacco Use Types Packs/Day Years Used Date Smoking Tobacco: Never Assessed Education Answer Date Recorded Are you interested in more education? Not on armando e 02/02/2025 Are you concerned about learning? Not on file 02/02/2025 No 02/02/2025 No 02/02/2025 Digital Access Answer Date Recorded No 02/02/2025 No 02/02/2025 Reliable internet access at home? Not on file 02/02/2025 Device with a working camera? Not on file Comments Unknown Sex and Gender Information Value Date Recorded Sex Assigned at Not on file Legal Sex Female 10:42 AM EDT Gender Identity Not on file Sexual Orientation Not on file Plan of Treatment Not on file Medical Devices Not on file Procedures Procedure Name Priority Date/Time Associated Diagnosis Comments ANATOMIC PATHOLOGY Routine 02/01/2025 12 :00 AM EDT from Last 3 Months Results * Anatomic Pathology (02/01/2025 12:00 AM EDT) Disclaimer (Conversion) THIS IS AN ADDENDUM REPORT [facility] PATHOLOGY Final Diagnosis KIDNEY BIOPSY (NEEDLE) DIFFUSE AND NODULAR DIABETIC GLOMERULOSCLEROSIS, ADVANCED WITH SEVERE VASCULAR DISEASE AND ADVANCED FOCAL GLOBAL AND SEGMENTAL GLOMERULOSCLEROSIS - THE CHANGES ARE MOST LIKELY ADAPTIVE AND SECONDARY TO HEMODYNAMIC CHANGES RELATED TO THE DIABETIC PROCESS ACUTE TUBULAR INJURY WITH FOCAL TUBULAR NECROSIS AND FEW PUS CASTS - THE POSSIBILITY OF PYELONEPHRITIS SHOULD BE RULED OUT SCATTERED MESANGIAL C3 DEPOSITS BY IMMUNOFLUORESCENCE RAISING THE POSSIBILITY OF A MILD C3 DOMINANT GLOMERULOPATHY - CAN REPRESENT A MILD/RESOLVING POST-INFECTIOUS GLOMERULONEPHRITIS OR A MILD C3 GLOMERULONEPHRITIS - NO EVIDENCE OF ACUTE OR PROLIFERATIVE GLOMERULONEPHRITIS BY IMMUNOFLUORESCENCE - ELECTRON MICROSCOPY IS PENDING AND RESULTS WILL BE REPORTED IN AN ADDENDUM ADVANCED CHRONIC CHANGES OF THE PARENCHYMA, INCLUDING: - GLOBAL GLOMERULOSCLEROSIS (37% OF GLOMERULI) - TUBULAR ATROPHY AND INTERSTITIAL FIBROSIS (50-60% OF THE CORTEX) - SEVERE ARTERIAL AND ARTERIOLAR SCLEROSIS The case was discussed with Dr. Bassett on 02/02/2025 at 12:00 PM. MICROSCOPIC DESCRIPTION: Sections of formalin-fixed, paraffin embedded tissue were evaluated using H&E, PAS, JMS, and trichrome stains. An H&E-stained frozen section taken from the tissue allocated for immunofluorescence microscopy was also evaluated using light microscopy. The sample consists of cortex and medulla containing 40 glomeruli (LM-14; IF-26), of which 15 are globally sclerosed and some non-sclerotic glomeruli are hypoperfused. The glomeruli are enlarged. No basement membrane spikes and craters are seen, but occasional double contours are identified. Significant endocapillary proliferation or cellular crescents are not seen in the glomeruli. The mesangium is extensively expanded by extracellular matrix. Few PAS+ Kimmelstiel-Vic nodules are seen in the mesangial areas. Occasional capillary loop microaneurysm are filled with hyaline material. Approximately 50-60% of the renal cortex shows tubular atrophy and interstitial fibrosis. Non atrophic tubules show widespeard luminal dilation with loss of the brush border and microvesicular degeneration. Many tubules contain protein reabsorption granules in the epithelial cells. Several tubules contain necrotic cellular debris, granular casts, PAS-positive hyaline casts, and red blood cell casts. Tubular basement membrane is thickened. Calcium phosphate or oxalate crystals are not seen. The interstitium contains moderate interstitial inflammation. The infiltrates are composed of mononuclear cells. Arteries show severe sclerosis. Arterioles show severe sclerosis. Arterioles also show severe hyaline degeneration. There is no arteritis seen. IMMUNOFLUORESCENCE MICROSCOPY: KIDNEY BIOPSY #: [id number] The sections of the sample submitted for immunofluorescence studies were incubated with antibodies specific for the heavy chains of IgG, IgA, and IgM, for kappa and lambda light chains, fibrin, albumin, and complement components C3 and C1q. The sample contains 26 glomeruli. There are 7 globally sclerosed glomeruli. There is fine granular reactivity for IgM (trace), C3 (trace to 1+) both along the capillaries and in the mesangium. There is no significant reactivity for IgG, IgA, C1q, kappa LC, lambda LC and fibrinogen in the glomeruli. Areas of sclerosis shows broad irregular staining for C3 and IgM. There are no crescents identified on fibrin stain. Tubules contain many intraluminal casts reactive for polyclonal IgA. Arterioles reveal diffuse and weak reactivity for C3. There is no difference in reactivity between kappa and lambda light chains in the glomeruli, tubular casts and background of the tissue. The immunofluorescence microscopy tests performed at [facility] were developed and their performance characteristics determined by the [facility] in the Department of Pathology at [facility]. They have not been cleared or approved by the U.S. Food and Drug Administration (FDA). The FDA has determined that such clearance or approval is not necessary. ELECTRON MICROSCOPY: KIDNEY BIOPSY #: [id number] Blocks: Blocks examined: thick sections; thin sections. Electron microscopy is pending and results will be reported in an addendum. [facility] Clinical History 60yo female with anemia, left pleural effusion, and JOE/CKD. [facility] Tissue Submitted A/1. Right kidney core biopsy - formalin B/2. Right kidney core biopsy - IF C/3. Right kidney core biopsy - EM [facility] Gross Description The specimen is received in 3 parts, each labeled with the patient's name and medical record number. Part A received in formalin and consists of 1 kern, cylindrical, soft tissue core(s) (1.9 cm in length x 0.1 cm in diameter). The specimen is submitted in toto for light microscopy. A1: 1 fragment. Part B received in Manish media and consists of 1 kern, cylindrical, soft tissue core(s) (1.0 cm in length x 0.1 cm in diameter). The specimen is submitted in toto for light microscopy. Part C received in glutaraldehyde and consists of multiple kern, cylindrical, soft tissue core(s) (ranging from 0.1-0.3 cm in length x 0.1 cm in diameter). The specimen is submitted in toto for electron microscopy. Dictated by: Coby العلي By his/her signature below, the senior physician certifies that he/she personally conducted a microscopic examination ( gross only exam if so stated) of the described specimen(s) and rendered or confirmed the diagnosis(es) related thereto. [facility] Addendum THERE ARE NO DEFINIT E ELECTRON DENSE DEPOSITS OR SUBEPITHELIAL HUMPS BY ELECTRON MICROSCOPY Addendum issued to report electron microscopy findings. The diagnosis remains unchanged. ELECTRON MICROSCOPY: KIDNEY BIOPSY #: [id number] Blocks: 2 Blocks examined: 1 thick section; 1 thin section. The sample submitted for electron microscopy examination contains 3 glomeruli; 1 glomerulus is examined ultrastructurally. The glomerular visceral epithelial cells reveal moderate effacement of their foot processes. And show focal microvillous degeneration of their apical surface. The glomerular basement membranes are diffusely thickened without definite electron dense deposition or duplication. The endothelial cells show focal swelling and a loss of fenestrations. The mesangium reveals normal cellular elements and a mildly increased amount of matrix, vaguely nodular, with irregular electron dense deposition and cellular debris. Arterioles contain hyalinosis. [facility] Procedure Comments ProcThick plastic section for EM - [facility] Thin plastic section for EM - [facility] Electron microscopy - [facility] (order for accession only, not for recut) H&E Stain - [facility] (order for accession only, not for recut) H&E Stain - [facility] Create a paraffin block - [facility] (order for accession only, not for recut) Lugo silver stain - [facility] (order for accession only, not for recut) Trichrome stain - [facility] PAS (Periodic acid-Radha stain) - [facility] PAS (Periodic acid-Radha stain) - [facility] Alpha heavy chain (immunofluorescence) - [facility] Gamma heavy chain (immunofluorescence) - [facility] Mu heavy chain (immunofluorescence) - [facility] H&E for kidney biopsy at [facility] - [facility] Neoga light chain (immunofluorescence) - [facility] Lambda light chain (immunofluorescence) - [facility] C3 complement factor (immunofluorescence) - [facility] C1q complement fragment (immunofluorescence) - [facility] Albumin (immunofluorescence) - [facility] Fibrin-related (immunofluorescence) - [facility] Unstained slides - [facility] (for accession only, not for recut) No bake, 37 degrees for [facility] (for accession only, not for recut) No bake, 37 degrees for [facility] Make plastic block for - [facility] Report Accession No: [id number] Date: 1965 Sex: Female [facility] Department of Pathology [address] [place], [place] [address]IA License No.: [id number] Life Skills Coach: Dr. Aman Cid M.D., Ph.D. Physician: DOUG BASSETT MD Procedure Date: 02/01/2025 Addended Report Resident: Socrates Joens MD Pathologist: Mag Ingram MD PATHOLOGIC DIAGNOSIS: KIDNEY BIOPSY (NEEDLE) DIFFUSE AND NODULAR DIABETIC GLOMERULOSCLEROSIS, ADVANCED WITH SEVERE VASCULAR DISEASE AND ADVANCED FOCAL GLOBAL AND SEGMENTAL GLOMERULOSCLEROSIS - THE CHANGES ARE MOST LIKELY ADAPTIVE AND SECONDARY TO HEMODYNAMIC CHANGES RELATED TO THE DIABETIC PROCESS ACUTE TUBULAR INJURY WITH FOCAL TUBULAR NECROSIS AND FEW PUS CASTS - THE POSSIBILITY OF PYELONEPHRITIS SHOULD BE RULED OUT SCATTERED MESANGIAL C3 DEPOSITS BY IMMUNOFLUORESCENCE RAISING THE POSSIBILITY OF A MILD C3 DOMINANT GLOMERULOPATHY - CAN REPRESENT A MILD/RESOLVING POST-INFECTIOUS GLOMERULONEPHRITIS OR A MILD C3 GLOMERULONEPHRITIS - NO EVIDENCE OF ACUTE OR PROLIFERATIVE GLOMERULONEPHRITIS BY IMMUNOFLUORESCENCE - ELECTRON MICROSCOPY IS PENDING AND RESULTS WILL BE REPORTED IN AN ADDENDUM ADVANCED CHRONIC CHANGES OF THE PARENCHYMA, INCLUDING: - GLOBAL GLOMERULOSCLEROSIS (37% OF GLOMERULI) - TUBULAR ATROPHY AND INTERSTITIAL FIBROSIS (50-60% OF THE CORTEX) - SEVERE ARTERIAL AND ARTERIOLAR SCLEROSIS The case was discussed with Dr. Bassett on 02/02/2025 at 12:00 PM. MICROSCOPIC DESCRIPTION: Sections of formalin-fixed, paraffin embedded tissue were evaluated using H&E, PAS, JMS, and trichrome stains. An H&E-stained frozen section taken from the tissue allocated for immunofluorescence microscopy was also evaluated using light microscopy. The sample consists of cortex and medulla containing 40 glomeruli (LM-14; IF-26), of which 15 are globally sclerosed and some non-sclerotic glomeruli are hypoperfused. The glomeruli are enlarged. No basement membrane spikes and craters are seen, but occasional double contours are identified. Significant endocapillary proliferation or cellular crescents are not seen in the glomeruli. The mesangium is extensively expanded by extracellular matrix. Few PAS+ Kimmelstiel-Vic nodules are seen in the mesangial areas. Occasional capillary loop microaneurysm are filled with hyaline material. Approximately 50-60% of the renal cortex shows tubular atrophy and interstitial fibrosis. Non atrophic tubules show widespeard luminal dilation with loss of the brush border and microvesicular degeneration. Many tubules contain protein reabsorption granules in the epithelial cells. Several tubules contain necrotic cellular debris, granular casts, PAS-positive hyaline casts, and red blood cell casts. Tubular basement membrane is thickened. Calcium phosphate or oxalate crystals are not seen. The interstitium contains moderate interstitial inflammation. The infiltrates are composed of mononuclear cells. Arteries show severe sclerosis. Arterioles show severe sclerosis. Arterioles also show severe hyaline degeneration. There is no arteritis seen. IMMUNOFLUORESCENCE MICROSCOPY: KIDNEY BIOPSY #: [id number] The sections of the sample submitted for immunofluorescence studies were incubated with antibodies specific for the heavy chains of IgG, IgA, and IgM, for kappa and lambda light chains, fibrin, albumin, and complement components C3 and C1q. The sample contains 26 glomeruli. There are 7 globally sclerosed glomeruli. There is fine granular reactivity for IgM (trace), C3 (trace to 1+) both along the capillaries and in the mesangium. There is no significant reactivity for IgG, IgA, C1q, kappa LC, lambda LC and fibrinogen in the glomeruli. Areas of sclerosis shows broad irregular staining for C3 and IgM. There are no crescents identified on fibrin stain. Tubules contain many intraluminal casts reactive for polyclonal IgA. Arterioles reveal diffuse and weak reactivity for C3. There is no difference in reactivity between kappa and lambda light chains in the glomeruli, tubular casts and background of the tissue. The immunofluorescence microscopy tests performed at [facility] were developed and their performance characteristics determined by the [facility] in the Department of Pathology at [facility]. They have not been cleared or approved by the U.S. Food and Drug Administration (FDA). The FDA has determined that such clearance or approval is not necessary. ELECTRON MICROSCOPY: KIDNEY BIOPSY #: [id number] Blocks: Blocks examined: thick sections; thin sections. Electron microscopy is pending and results will be reported in an addendum. CLINICAL DATA: 60yo female with anemia, left pleural effusion, and JOE/CKD. TISSUE SUBMITTED: A/1. Right kidney core biopsy - formalin B/2. Right kidney core biopsy - IF C/3. Right kidney core biopsy - EM GROSS DESCRIPTION: The specimen is received in 3 parts, each labeled with the patient's name and medical record number. Part A received in formalin and consists of 1 kern, cylindrical, soft tissue core(s) (1.9 cm in length x 0.1 cm in diameter). The specimen is submitted in toto for light microscopy. A1: 1 fragment. Part B received in Manish media and consists of 1 kern, cylindrical, soft tissue core(s) (1.0 cm in length x 0.1 cm in diameter). The specimen is submitted in toto for light microscopy. Part C received in glutaraldehyde and consists of multiple kern, cylindrical, soft tissue core(s) (ranging from 0.1-0.3 cm in length x 0.1 cm in diameter). The specimen is submitted in toto for electron microscopy. Dictated by: Coby العلي By his/her signature below, the senior physician certifies that he/she personally conducted a microscopic examination ( gross only exam if so stated) of the described specimen(s) and rendered or confirmed the diagnosis(es) related thereto. Final Diagnosis by Mag Ingram MD, Electronically signed on Saturday February 08, 2025 at 05:14:47PM ADDENDUM: THERE ARE NO DEFINITE ELECTRON DENSE DEPOSITS OR SUBEPITHELIAL HUMPS BY ELECTRON MICROSCOPY Addendum issued to report electron microscopy findings. The diagnosis remains unchanged. ELECTRON MICROSCOPY: KIDNEY BIOPSY #: [id number] Blocks: 2 Blocks examined: 1 thick section; 1 thin section. The sample submitted for electron microscopy examination contains 3 glomeruli; 1 glomerulus is examined ultrastructurally. The glomerular visceral epithelial cells reveal moderate effacement of their foot processes. And show focal microvillous degeneration of their apical surface. The glomerular basement membranes are diffusely thickened without definite electron dense deposition or duplication. The endothelial cells show focal swelling and a loss of fenestrations. The mesangium reveals normal cellular elements and a mildly increased amount of matrix, vaguely nodular, with irregular electron dense deposition and cellular debris. Arterioles contain hyalinosis. Addendum #1 by Mag Ingram MD, Electronically signed on Sunday February 23, 2025 at 01:49:56PM [facility] Conversion Type (Conversion Source) 02/01/2025 02/02/2025 Conversion Type (Kidney, Unknown) 02/01/2025 02/02/2025 Conversion Type (Conversion Source) 02/01/2025 02/02/2025 Doug Bassett MD LAB PATHOLOGY ORDERA BLES Edited Result - Final [facility] from Last 3 Months Insurance MEDICARE REPLACEMENT MEDICARE REPLACEMENT CARE MEDICARE REPLACEMENT CARE MEDICARE REPLACEMENT CARE MEDICARE REPLACEMENT [facility] ONE CARE MEDICARE REPLACEMENT Care Teams Marketing Recruiter Relationship Specialty Start Date End Date Pcp, Not Required PCP - General 02/02/25 Additional Source Comments The information contained in this document represents components of the legal health record. It is not the complete legal health record.[facility]
--- OUTSIDE RECORDS SUMMARY | 2025-05-02 01:09 | XMS_ITS | Continuity of Care Document ---
Author Name [facility], Medical Address [address] [place] [id number] Organization Unknown Address [address] [place] [id number] Medications No known medications Problems No known problems
[2025-05-02 01:12] LABS: Anion Gap 16 (12-20); Blood Urea Nitrogen 50 mg/dL (9-16); Calcium 8.2 mg/dL (8.4-10.2); Carbon Dioxide 16 mmol/L (22-29); Chloride 112 mmol/L (96-108); Creatinine Clr Calc Pharmacy 15.7; Estimated Glomerular Filt Rate 12; Potassium 4.8 mmol/L (3.3-5.1); Sodium 139 mmol/L (135-145)
[2025-05-02 01:29] LABS: Troponin-I High Sensitivity 7.4 ng/L (<3.5-17.0)
--- NOTE | 2025-05-02 02:45 | PC.NURSE ---
20 g IV in right AC
--- NOTE | 2025-05-02 03:41 | PC.NURSE ---
Attempted to bladder scan pt with structured cabling technician, unable to view bladder. Scanner was not able to find any urine. Pt reports she makes very little urine at baseline.
--- NOTE | 2025-05-02 03:49 | PM.IMHP ---
History of Present Illness Date of Service: 05/02/25 Chief Complaint: Dyspnea, left shoulder pain The patient is a 60-year-old female, new to this facility, with PMH of CVA w Left hemiparesis, Seizure disorder, smoking, CKD4, HTN, HLD, DMII, who presents with worsening shortness of breath and cough. She describes several days of cough and upper respiratory?type symptoms, with a noticeable worsening of dyspnea over the past two days. She denies fever, chills, chest pain, diaphoresis, or hemoptysis. She attempted to use her asthma inhaler without relief. She reports chronic wheezing and a long history of tobacco use, as well as longstanding diabetes mellitus. She denies lower-extremity swelling, recent travel, or use of anticoagulation. She has a prior history of stroke and denies a known history of congestive heart failure. A CXR in ED showed large left sided pleural effusion with almost total collapse or left lung. She reports that most of her prior medical care has been at [facility], and outside records are currently pending. She states that she previously underwent a left side thoracentesis and was told this was related to renal failure, though no official documentation is available at this time. She reports her awarness of deteriorating KFT and discussions about starting Dialysis with her test driller. She is willing to start dialysis if needed as she is not making much of urine in spite of being on Bumex at baseline. In the emergency department, she was found to have acute on chronic renal insufficiency. Given concern for possible volume overload and contributory cardiac physiology, with a markedly elevated pro-BNP (~10,500), no additional intravenous fluids were administered. Further clarification of her baseline renal and cardiopulmonary status is pending receipt of outside records from [facility]. Review of Systems Review of Systems: Yes all other systems are reviewed and are negative COUNTS INCLUDE 234 BEDS AT THE [facility] Medical History (Updated 05/02/25 @ 04:01 by Miles Barbosa MD) Smoking greater than 40 pack years Seizure disorder Social History Smoked in Last 30 Days: Yes Use of substances other than those prescribed or required for medical reasons: No Advance Directives: No Advance Directives Information Provided: No Patient : No Meds Allergies Allergy/AdvReac Type Severity Reaction Status Date / Time No Known Allergies Allergy Unverified 02/03/20 16:13 amy inhibitors Allergy Unknown cough Uncoded 05/01/25 23:51 Active Medications: Current Medications Acetaminophen (Acetaminophen 325 Mg Tablet) 650 mg PO Q6H PRN PRN Reason: Pain, Mild 1-3,fever,headache Calcium Carbonate (Calcium Carbonate 750 Mg Tab.Chew) 750 mg PO Q4H PRN PRN Reason: Heartburn Divalproex Sodium (Divalproex Sodium 500 Mg Tablet.Dr) 500 mg PO BID JAIR Heparin Sodium (Porcine) (Heparin Sodium,Porcine 5,000 Unit/Ml Vial) 5,000 unit SUBCUT Q12H JAIR Lamotrigine (Lamotrigine 25 Mg Tablet) 25 mg PO BID JARI Magnesium Hydroxide (Milk Of Magnesia 30 Ml Oral.Susp) 30 ml PO DAILY PRN PRN Reason: Constipation Melatonin (Melatonin 3 Mg Tablet) 6 mg PO BEDTIME PRN PRN Reason: Insomnia Ondansetron HCl (Ondansetron Hcl 4 Mg/2 Ml Vial) 4 mg IVPUSH Q8H PRN PRN Reason: Nausea and Vomiting Sodium Chloride (0.9 % Sodium Chloride Flush 3 Ml Syringe) 3 ml IVFLUSH QSHIFT JAIR Physical Exam Vital Signs and Narrative: Vital Signs: Last Vital Signs Temp 98.7 F 05/02/25 03:38 Pulse 85 05/02/25 03:38 Resp 18 05/02/25 03:38 BP 141/64 H 05/02/25 03:38 Pulse Ox 92 05/02/25 03:38 O2 Del Method Room Air 05/02/25 03:38 BMI result Body Mass Index 24.2 Const: Other: Constitutional : Awake, interactive, not in distress Neck : Normal inspection, Supple Cardiovascular : RRR, no JVP, no lower extremity edema Respiratory : good air entry right side, decrease air enrty to left lung , no air movement at the base, no crackles, wheezes or rhonchi Gastrointestinal: soft, lax, Normal bowel sounds, Non tender Skin : Warm, Dry Neurological : Alert & oriented x3, Left sided hemiparesis Results Labs 05/02/25 00:34 05/02/25 00:34 Labs: Laboratory Results - last 24 hr 05/02/25 05/02/25 05/02/25 00:16 00:34 00:53 MCV 89.9 MCH 29.9 MCHC 33.2 RDW 14.6 Plt Count 255 MPV 9.5 Immature Gran % (Auto) 0.5 H Neut % (Auto) 82.0 H Lymph % (Auto) 10.9 L [place] % (Auto) 6.3 Eos % (Auto) 0.1 Baso % (Auto) 0.2 Lymph # (Auto) 1.5 [place] # (Auto) 0.9 Eos # (Auto) 0.0 Baso # (Auto) 0.0 Abs Immat Gran (auto) 0.07 H Absolute Neuts (auto) 11.4 H Absolute Nucleated RBC 0.000 Nucleated RBC % (auto) 0.0 VBG pH 7.36 VBG pCO2 29 VBG pO2 68 VBG HCO3 16 L VBG O2 Saturation 93.0 VBG Base Excess -7.4 Anion Gap 16 Estim Creat Clear Calc 15.7 Estimated GFR 12 Random Glucose 123 H Lactic Acid 1.5 Calcium 8.2 L D Troponin I High Sens 7.4 NT-Pro-B Natriuret Pep 59879.3 H Influenza Type A (PCR) NEGATIVE Influenza Type B (PCR) NEGATIVE RSV RNA Qual (PCR) NEGATIVE SARS-CoV-2 RNA (RT-PCR) NEGATIVE Assessment and Plan (1) Seizure disorder: Status: Acute (2) Pleural effusion: Status: Acute (3) Acute kidney injury superimposed on CKD: Status: Acute (4) CKD (chronic kidney disease) stage 5, GFR less than 15 ml/min: Status: Acute (5) Smoking greater than 40 pack years: Status: Acute (6) Metabolic acidosis with normal anion gap and failure of bicarbonate regeneration: Status: Acute Plan The patient is a 60-year-old female, new to this facility, with PMH of CVA w Left hemiparesis, Seizure disorder, smoking, CKD4, HTN, HLD, DMII, who presents with worsening shortness of breath and cough. JOE on CKD4-5 with compensate metabolic acidosis Reported discussions about starting dialysis at [facility] with Cr baseline around 2 (not sure, waiting records from [facility]) Cr 3.9 with metaoblic acidosis (compensated) hold on nephrotoxic meds I\O and Cr get nephrology evaluation Patient agreeable to start dialysis if needed Large left sided pleural effusion Large, no clear signs of loculation check CT scan perform Thoracentsis (order placed) ; pending [facility] records if any pathology was done Consider aggressive Diuresis\Dialysis after discussing with nephro Nicotic dependence NRT while inpatient Seizure disorder restart Depakote and Lamotrigine Type 2 DM Decrease home LAntus dose; will hold and monitor for now SSI Diabetic diet HTN,HLD Continue home medications : Labetalol and Hydralazine at lower doses Hold Statin MED REC PENDING DVT PPx Heparin bid The patient will need 2 overnight hospital stay for treatment of JOE and pleural effusion pending Thoracentesis and Nephrology recommendations Quality Stroke Does the patient have a stroke diagnosis?: No VTE Prior VTE?: No VTE Risk Level:: Medical - moderate - high VTE Device Contraindication: Treatment Not Indicated VTE Drug Contraindication: N/A - Med Ordered
[2025-05-02 04:42] LABS: Hematocrit 23.1 % (37.0-47.0); Hemoglobin 7.4 g/dl (12.0-16.0); Imm Gran Abs Auto 0.06 X10*3/uL (0.00-0.03); Imm Gran Pct Auto 0.5 % (0.0-0.4); Lymphocytes Absolute Auto 0.5 X10*3/uL (1.2-4.9); MANUAL DIFF FLAG SCAN; Mean Corpuscular HGB Conc 32.0 g/dl (31.0-35.0); Mean Corpuscular Hemoglobin 29.4 pg (27.0-33.0); Mean Corpuscular Volume 91.7 fL (80.0-98.0); NRBC Abs Auto 0.000 X10*3/uL (0.0-0.012); NRBC Pct Auto 0.0 /100WBC (0.0-0.2); Platelet Count 228 X10*3/uL (160-400); Red Blood Count 2.52 X10*6/uL (4.20-5.50); SCAN SMEAR FLAG 1; White Blood Count 12.6 X10*3/uL (4.8-10.8)
[2025-05-02 05:09] LABS: Alanine Aminotransferase 18 U/L (0-31); Albumin Level 3.0 g/dL (3.5-5.0); Alkaline Phosphatase 132 U/L (39-117); Anion Gap 16 (12-20); Aspartate Amino Transferase 25 U/L (5-31); Blood Urea Nitrogen 50 mg/dL (9-16); Calcium 7.9 mg/dL (8.4-10.2); Carbon Dioxide 15 mmol/L (22-29); Chloride 112 mmol/L (96-108); Creatinine Clr Calc Pharmacy 15.3; Estimated Glomerular Filt Rate 11; Potassium 5.0 mmol/L (3.3-5.1); Sodium 138 mmol/L (135-145); Total Protein 5.3 g/dL (6.5-8.0)
[2025-05-02 07:12] LABS: Glucose, Whole Blood 204 mg/dL (60-115)
[2025-05-02] MEDS: 0.9 % Sodium Chloride Flush 3 ML SYRINGE IVFLUSH ×2 (07:22→17:11)
--- NOTE | 2025-05-02 07:27 | HO.NURTONUR ---
Addendum entered by Mary Jane Moreno RN 05/02/25 14:45: Pt had Thora completed, 900ml taken off, cloudy pleural fluid, specimens sent. Pt tolerated well. Occasional cough. Oxy this AM for left sided chronic body pain. VSS 95% on room air Pt is alert and oriented. Original Note: Pt is a 60 y.o. female coming in with increased shortness of breath with associated cough. PMH CVA w Left hemiparesis, Seizure disorder, smoking, CKD4, HTN, HLD, DMII. Pt received IV Solumedrol and neb tx in the ED. CXR shows 1. Inferior dislocation of the left humeral head. 2. Large left pleural effusion. Chest CT shows 1. Large left pleural effusion with associated left lung atelectasis. 2. Scattered ground-glass opacities in both lungs are indeterminate. This could be superimposed infectious etiology. 3. Generalized body wall edema. Consider volume overload. Labs remarkable for elevated WBC (IV abx administered), low H&H 7.4/23.1, BUN/creatinine 50/4.02, BNP 93709. Covid/flu/RSV neg. Still awaiting urine sample, pt reports she makes very little urine at baseline. 20 g IV right AC, VSS, a&ox4. Pt reports she is wheelchair bound at baseline. Purewick in place.
[2025-05-02] MEDS: Nicotine 14 MG PATCH.TD24 TRANSDERMA (08:07)
--- NOTE | 2025-05-02 09:59 | PC.NURSE ---
Pt reports left sided body pain 6/10, unable to give Tylenol per pain scale. Dr Sarabia aware
[2025-05-02] MEDS: oxyCODONE HCl Immed Release 5 MG TABLET 10 MG PO ×2 (10:48→20:24)
[2025-05-02 12:26] LABS: Glucose, Whole Blood 187 mg/dL (60-115)
--- NOTE | 2025-05-02 12:38 | MHC.CM.PN ---
IMM was addressed with Patient.Patient lives in an apartment with her Daughter and she uses a w/c. 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 PCP is and Patient will require BLS transport at dc.
[2025-05-02 12:47] LABS: Glucose, Whole Blood 168 mg/dL (60-115)
--- NOTE | 2025-05-02 13:30 | PC.NURSE ---
Pt off unit to Thoracentesis
--- NOTE | 2025-05-02 14:03 | PC.NURSE ---
L thoracentesis performed by Dr Kevin; pt tolerated well; + non-productive cough following procedure; 900ml cloudy, yellow fluid out; samples sent to lab
[2025-05-02] MEDS: Lidocaine HCl 1 % MPF 5 ML VIAL SUBCUT (14:10)
[2025-05-02 14:40] LABS: MN% 85.0 %; PMN% 15.0 %; WBC Pleural Fluid 0.135 X10*3/uL
--- NOTE | 2025-05-02 14:40 | PHA.MEDREC ---
Pharmacy Consult ? Medication Reconciliation Pharmacy has completed the medication reconciliation. Spoke with pt and she had on hand a list from her [employer] she utilized to confirm her med rec with me. Pt confirmed she still taking Baclofen 10mg 1/2 tabs TID PRN; LF 07/2024, Bumetadine 1mg 1 BID; LF 01/2025 for 30 days, Divalproex 500mg 1 BID; no claims in pharmacy claims; Called [facility] and [facility] pharmacy has no claims, [facility] pharmacy confirmed when pt was in a group home care facility they were filling her meds and she last got Divalproex 500mg 1 BID 09/24/2024, pt taking Duloxetine 60mg; LF 01/30/2024 for 90 days from [facility], Hydralazine 50mg 1 TID: 03/18 for 30 days, Pt confirmed her Lantus injecting 24 units at bedtime, Insulin Lispro testing 3 times a day and injecting per a sliding scale; pt suppose to get an insulin pump to use but has gotten that yet, pt has Nictone 14mg patches as needed for nicotine cravings and Quetiapine 50mg tabs 1 tab at bedtime. I spoke with pt daughter (Sade [phone]) and she was not able to confirm any medications names with me at this time and states she is taking HBP meds, Diabetes meds and others but was able to confirm pt Lantus; 24 units at bedtime and Insulin Lispro per a sliding scale TIDAC. I utilized claims and the [employer] packet to confirm pt medications.
--- NOTE | 2025-05-02 14:59 | PHA.MEDREC ---
Addendum entered by Ramakrishna Lopez [facility] 05/02/25 15:27: MED REC REVIEWED BY [facility] Original Note: Pharmacy Consult ? Medication Reconciliation Pharmacy has completed the medication reconciliation. Spoke with pt and she had on hand a list from her [employer] she utilized to confirm her med rec with me. Pt confirmed she still taking Baclofen 10mg 1/2 tabs TID PRN; LF 07/2024, Bumetadine 1mg 1 BID; LF 01/2025 for 30 days, Divalproex 500mg 1 BID; no claims in pharmacy claims; Called [facility] and [facility] pharmacy has no claims, [facility] pharmacy confirmed when pt was in a intermediate card tender care facility they were filling her meds and she last got Divalproex 500mg 1 BID 09/24/2024, pt taking Duloxetine 60mg; LF 01/30/2024 for 90 days from [facility], Hydralazine 50mg 1 TID: 03/18 for 30 days, Pt confirmed her Lantus injecting 24 units at bedtime, Insulin Lispro testing 3 times a day and injecting per a sliding scale; pt suppose to get an insulin pump to use but has gotten that yet, pt has Nictone 14mg patches as needed for nicotine cravings and Quetiapine 50mg tabs 1 tab at bedtime. I spoke with pt daughter (Sade [phone]) and she was not able to confirm any medications names with me at this time and states she is taking HBP meds, Diabetes meds and others but was able to confirm pt Lantus; 24 units at bedtime and Insulin Lispro per a sliding scale TIDAC. I utilized claims and the [employer] packet to confirm pt medications. Pt taking Clonidine 0.2mg patches once a week and confirmed she switched them on Wednesdays and last changed it 04/27.
[2025-05-02 16:00] LABS: Glucose, Whole Blood 160 mg/dL (60-115)
--- NOTE | 2025-05-02 16:15 | PM.EVENT ---
Event Note Date of Service: 05/02/25 Event Note: Chart reviewed patient examined. Agree with H&P and plan as outlined by obdulio. Further changes based on clinical course and forthcoming data Time Spent With Patient Time: Total time managing care of this patient today ____ minutes.
[2025-05-02 16:17] LABS: Lymphocytes Pleural Fluid 8 %; Monocytes Pleural Fluid 57 %; Neutrophils Pleural Fluid 4 %
[2025-05-02 16:18] LABS: BF Shift QC OK YES; Other Cells Plerual Fl 31 %
[2025-05-02 16:35] LABS: Glucose, Whole Blood 157 mg/dL (60-115)
[2025-05-02] MEDS: guaiFEN/Codeine SF 200/20/10ML 10 ML LIQUID PO ×2 (18:47→22:30)
[2025-05-02 20:17] LABS: Glucose, Whole Blood 132 mg/dL (60-115)
[2025-05-02] MEDS: Throat Lozenge, Medicated LOZENGE 1 LOZENGE MUCOUS MEM (22:30)
--- NOTE | 2025-05-02 23:21 | P.PNNP_ITS ---
Subjective Subjective Date of Service: 05/02/25 Interval history: pt seen by me in office, recent BL cr of ~ 3.5, now admitted with JOE, she also has left side CVA with left arm swelling will need lue duplex to rule out dvt. Physical Exam 2 Vital Signs: Vital Signs: Last Vital Signs Temp 98.7 F 05/02/25 19:53 Pulse 82 05/02/25 19:53 Resp 16 05/02/25 19:53 BP 177/79 H 05/02/25 19:53 Pulse Ox 92 05/02/25 19:53 O2 Del Method Room Air 05/02/25 19:53 BMI result Body Mass Index 24.2 Objective Data Labs 05/02/25 04:34 05/02/25 04:34 Labs: Laboratory Results - last 24 hr 05/02/25 05/02/25 05/02/25 00:16 00:34 00:53 WBC 14.0 H RBC 2.68 L Hgb 8.0 L Hct 24.1 L MCV 89.9 MCH 29.9 MCHC 33.2 RDW 14.6 Plt Count 255 MPV 9.5 Immature Gran % (Auto) 0.5 H Neut % (Auto) 82.0 H Lymph % (Auto) 10.9 L [place] % (Auto) 6.3 Eos % (Auto) 0.1 Baso % (Auto) 0.2 Lymph # (Auto) 1.5 [place] # (Auto) 0.9 Eos # (Auto) 0.0 Baso # (Auto) 0.0 Abs Immat Gran (auto) 0.07 H Absolute Neuts (auto) 11.4 H Absolute Nucleated RBC 0.000 Nucleated RBC % (auto) 0.0 Smear Tech's Comments Hold Purple Top VBG pH 7.36 VBG pCO2 29 VBG pO2 68 VBG HCO3 16 L VBG O2 Saturation 93.0 VBG Base Excess -7.4 Sodium 139 Potassium 4.8 Chloride 112 H Carbon Dioxide 16 L Anion Gap 16 BUN 50 H Creatinine 3.92 H Estim Creat Clear Calc 15.7 Estimated GFR 12 POC Glucose Random Glucose 123 H Lactic Acid 1.5 Calcium 8.2 L D Total Bilirubin AST ALT Alkaline Phosphatase Lactate Dehydrogenase Troponin I High Sens 7.4 NT-Pro-B Natriuret Pep 50857.3 H Total Protein Albumin Pleural WBC Pleural RBC Pleural Neutrophils Pleural Lymphocytes Pleural Monocytes Pleural Other Cells Influenza Type A (PCR) NEGATIVE Influenza Type B (PCR) NEGATIVE RSV RNA Qual (PCR) NEGATIVE SARS-CoV-2 RNA (RT-PCR) NEGATIVE 05/02/25 05/02/25 05/02/25 04:34 07:09 07:33 WBC 12.6 H RBC 2.52 L Hgb 7.4 L Hct 23.1 L MCV 91.7 MCH 29.4 MCHC 32.0 RDW 14.6 Plt Count 228 MPV 9.9 Immature Gran % (Auto) 0.5 H Neut % (Auto) 93.8 H Lymph % (Auto) 3.8 L [place] % (Auto) 1.7 L Eos % (Auto) 0.0 Baso % (Auto) 0.2 Lymph # (Auto) 0.5 L [place] # (Auto) 0.2 Eos # (Auto) 0.0 Baso # (Auto) 0.0 Abs Immat Gran (auto) 0.06 H Absolute Neuts (auto) 11.8 H Absolute Nucleated RBC 0.000 Nucleated RBC % (auto) 0.0 Smear Tech's Comments VERIFIED Hold Purple Top VBG pH VBG pCO2 VBG pO2 VBG HCO3 VBG O2 Saturation VBG Base Excess Sodium 138 Potassium 5.0 Chloride 112 H Carbon Dioxide 15 L Anion Gap 16 BUN 50 H Creatinine 4.02 H* Estim Creat Clear Calc 15.3 Estimated GFR 11 POC Glucose 204 H Random Glucose 169 H Lactic Acid Calcium 7.9 L Total Bilirubin 0.1 AST 25 ALT 18 Alkaline Phosphatase 132 H Lactate Dehydrogenase 273 H Troponin I High Sens NT-Pro-B Natriuret Pep Total Protein 5.3 L Albumin 3.0 L Pleural WBC Pleural RBC Pleural Neutrophils Pleural Lymphocytes Pleural Monocytes Pleural Other Cells Influenza Type A (PCR) Influenza Type B (PCR) RSV RNA Qual (PCR) SARS-CoV-2 RNA (RT-PCR) 05/02/25 05/02/25 05/02/25 07:37 11:34 12:43 WBC RBC Hgb Hct MCV MCH MCHC RDW Plt Count MPV Immature Gran % (Auto) Neut % (Auto) Lymph % (Auto) [place] % (Auto) Eos % (Auto) Baso % (Auto) Lymph # (Auto) [place] # (Auto) Eos # (Auto) Baso # (Auto) Abs Immat Gran (auto) Absolute Neuts (auto) Absolute Nucleated RBC Nucleated RBC % (auto) Smear Tech's Comments Hold Purple Top SEE NOTE VBG pH VBG pCO2 VBG pO2 VBG HCO3 VBG O2 Saturation VBG Base Excess Sodium Potassium Chloride Carbon Dioxide Anion Gap BUN Creatinine Estim Creat Clear Calc Estimated GFR POC Glucose 187 H 168 H Random Glucose Lactic Acid Calcium Total Bilirubin AST ALT Alkaline Phosphatase Lactate Dehydrogenase Troponin I High Sens NT-Pro-B Natriuret Pep Total Protein Albumin Pleural WBC Pleural RBC Pleural Neutrophils Pleural Lymphocytes Pleural Monocytes Pleural Other Cells Influenza Type A (PCR) Influenza Type B (PCR) RSV RNA Qual (PCR) SARS-CoV-2 RNA (RT-PCR) 05/02/25 05/02/25 05/02/25 13:41 15:12 16:31 WBC RBC Hgb Hct MCV MCH MCHC RDW Plt Count MPV Immature Gran % (Auto) Neut % (Auto) Lymph % (Auto) [place] % (Auto) Eos % (Auto) Baso % (Auto) Lymph # (Auto) [place] # (Auto) Eos # (Auto) Baso # (Auto) Abs Immat Gran (auto) Absolute Neuts (auto) Absolute Nucleated RBC Nucleated RBC % (auto) Smear Tech's Comments Hold Purple Top VBG pH VBG pCO2 VBG pO2 VBG HCO3 VBG O2 Saturation VBG Base Excess Sodium Potassium Chloride Carbon Dioxide Anion Gap BUN Creatinine Estim Creat Clear Calc Estimated GFR POC Glucose 160 H 157 H Random Glucose Lactic Acid Calcium Total Bilirubin AST ALT Alkaline Phosphatase Lactate Dehydrogenase Troponin I High Sens NT-Pro-B Natriuret Pep Total Protein Albumin Pleural WBC 0.135 Pleural RBC < 0.002 Pleural Neutrophils 4 Pleural Lymphocytes 8 Pleural Monocytes 57 Pleural Other Cells 31 Influenza Type A (PCR) Influenza Type B (PCR) RSV RNA Qual (PCR) SARS-CoV-2 RNA (RT-PCR) 05/02/25 20:05 WBC RBC Hgb Hct MCV MCH MCHC RDW Plt Count MPV Immature Gran % (Auto) Neut % (Auto) Lymph % (Auto) [place] % (Auto) Eos % (Auto) Baso % (Auto) Lymph # (Auto) [place] # (Auto) Eos # (Auto) Baso # (Auto) Abs Immat Gran (auto) Absolute Neuts (auto) Absolute Nucleated RBC Nucleated RBC % (auto) Smear Tech's Comments Hold Purple Top VBG pH VBG pCO2 VBG pO2 VBG HCO3 VBG O2 Saturation VBG Base Excess Sodium Potassium Chloride Carbon Dioxide Anion Gap BUN Creatinine Estim Creat Clear Calc Estimated GFR POC Glucose 132 H Random Glucose Lactic Acid Calcium Total Bilirubin AST ALT Alkaline Phosphatase Lactate Dehydrogenase Troponin I High Sens NT-Pro-B Natriuret Pep Total Protein Albumin Pleural WBC Pleural RBC Pleural Neutrophils Pleural Lymphocytes Pleural Monocytes Pleural Other Cells Influenza Type A (PCR) Influenza Type B (PCR) RSV RNA Qual (PCR) SARS-CoV-2 RNA (RT-PCR) Microbiology Microbiology Results: Microbiology 05/02/25 13:41 Pleura Gram Stain - Final Procedures Date of Service Date of Service: 05/02/25 Assessment & Plan Time Spent With Patient Time: Total time managing care of this patient today ____ minutes. Progress Note: Quality Stroke Does the patient have a stroke diagnosis?: No
[2025-05-03] VITALS (8 sets, daily range): BP systolic 154–179; BP diastolic 62–78; PULSE 68–86; RESP 14–19; TEMP 36.4–37.1; O2SAT 90–96
[2025-05-03] MEDS: 0.9 % Sodium Chloride Flush 3 ML SYRINGE IVFLUSH ×4 (00:31→20:31)
[2025-05-03] MEDS: guaiFEN/Codeine SF 200/20/10ML 10 ML LIQUID PO ×4 (05:54→20:28)
[2025-05-03] MEDS: Throat Lozenge, Medicated LOZENGE 1 LOZENGE MUCOUS MEM ×4 (05:54→20:28)
[2025-05-03 07:06] LABS: Glucose, Whole Blood 117 mg/dL (60-115)
[2025-05-03] MEDS: Nicotine 14 MG PATCH.TD24 TRANSDERMA (07:57)
--- NOTE | 2025-05-03 08:25 | P.PNIM_ITS ---
Subjective Subjective Date of Service: 05/03/25 Interval History: F/u on JOE hydrothorax Physical Exam 2 Vital Signs: Vital Signs: Last Vital Signs Temp 98.1 F 05/03/25 07:28 Pulse 72 05/03/25 07:36 Resp 18 05/03/25 07:36 BP 166/69 H 05/03/25 07:28 Pulse Ox 92 05/03/25 07:28 O2 Del Method Room Air 05/03/25 07:28 BMI result Body Mass Index 24.2 Const: Other: Constitutional : Awake, interactive, not in distress Neck : Normal inspection, Supple Cardiovascular : RRR, no JVP, Respiratory : good air entry right side, decrease air enrty to left lung , no air movement at the base, no crackles, wheezes or rhonchi Gastrointestinal: soft, lax, Normal bowel sounds, Non tender Skin : Warm, Dry Neurological : Alert & oriented x3, Left sided hemiparesis Objective Data Active Medications Acetaminophen (Acetaminophen 325 Mg Tablet) 650 mg PO Q6H PRN PRN Reason: Pain, Mild 1-3,fever,headache Benzocaine (Throat Lozenge, Medicated Lozenge) 1 lozenge MUCOUS MEM Q2H PRN PRN Reason: Sore Throat Last Admin: 05/03/25 05:54 Dose: 1 lozenge Documented By: BRO Budesonide (Budesonide 180 Mcg Aer.Pow.Ba) 2 puff INHALE RBID [facility] Last Admin: 05/03/25 07:35 Dose: 2 puff Documented By: ABELCARSara Calcium Carbonate (Calcium Carbonate 750 Mg Tab.Chew) 750 mg PO Q4H PRN PRN Reason: Heartburn Divalproex Sodium (Divalproex Sodium 500 Mg Tablet.Dr) 500 mg PO BID [facility] Last Admin: 05/03/25 07:59 Dose: 500 mg Documented By: PHANLKAYLA Guaifenesin/Codeine Phosphate (Guaifen/Codeine Sf 200/20/10ml 10 Ml Liquid) 10 ml PO Q4H PRN PRN Reason: Cough Last Admin: 05/03/25 05:54 Dose: 10 ml Documented By: BRO Heparin Sodium (Porcine) (Heparin Sodium,Porcine 5,000 Unit/Ml Vial) 5,000 unit SUBCUT Q12H [facility] Last Admin: 05/03/25 08:01 Dose: 5,000 unit Documented By: CHONG Hydralazine HCl (Hydralazine Hcl 25 Mg Tablet) 25 mg PO TID [facility]; Protocol Last Admin: 05/03/25 07:59 Dose: 25 mg Documented By: CHONG Insulin Human Lispro (Insulin Lispro 100 Unit/Ml 3 Ml Vial) 0 unit SUBCUT QIDACHS [facility]; Protocol Last Admin: 05/03/25 07:34 Dose: Not Given Documented By: CHONG Non-Admin Reason: No Insulin Coverage Labetalol HCl (Labetalol Hcl 100 Mg Tablet) 100 mg PO BID [facility]; Protocol Last Admin: 05/03/25 07:59 Dose: 100 mg Documented By: CHONG Lamotrigine (Lamotrigine 25 Mg Tablet) 25 mg PO BID [facility] Last Admin: 05/03/25 07:59 Dose: 25 mg Documented By: CHONG Magnesium Hydroxide (Milk Of Magnesia 30 Ml Oral.Susp) 30 ml PO DAILY PRN PRN Reason: Constipation Melatonin (Melatonin 3 Mg Tablet) 6 mg PO BEDTIME PRN PRN Reason: Insomnia Nicotine (Nicotine 14 Mg Patch.Td24) 14 mg TRANSDERMA DAILY [facility] Last Admin: 05/03/25 07:57 Dose: 14 mg Documented By: CHONG Ondansetron HCl (Ondansetron Hcl 4 Mg/2 Ml Vial) 4 mg IVPUSH Q8H PRN PRN Reason: Nausea and Vomiting Oxycodone HCl (Oxycodone Hcl Immed Release 5 Mg Tablet) 10 mg PO Q4H PRN PRN Reason: Pain, Moderate(Pain Scale 4-6) Last Admin: 05/02/25 20:24 Dose: 10 mg Documented By: ESTHER Sodium Chloride (0.9 % Sodium Chloride Flush 3 Ml Syringe) 3 ml IVFLUSH QSHIFT [facility] Last Admin: 05/03/25 08:00 Dose: 3 ml Documented By: CHONG Labs 05/02/25 04:34 05/03/25 08:34 Labs: Laboratory Results - last 24 hr 05/02/25 05/02/25 05/02/25 11:34 12:43 13:41 POC Glucose 187 H 168 H Pleural WBC 0.135 Pleural RBC < 0.002 Pleural Neutrophils 4 Pleural Lymphocytes 8 Pleural Monocytes 57 Pleural Other Cells 31 05/02/25 05/02/25 05/02/25 15:12 16:31 20:05 POC Glucose 160 H 157 H 132 H Pleural WBC Pleural RBC Pleural Neutrophils Pleural Lymphocytes Pleural Monocytes Pleural Other Cells 05/03/25 06:59 POC Glucose 117 H Pleural WBC Pleural RBC Pleural Neutrophils Pleural Lymphocytes Pleural Monocytes Pleural Other Cells Microbiology Microbiology Results: Microbiology 05/02/25 13:41 Gram Stain - Final Pleura Routine Culture - Preliminary No growth to date. Anaerobic Culture - Preliminary No growth to date. 05/02/25 00:46 Blood Culture - Preliminary Blood - Venous No growth after 24 hours. 05/02/25 00:36 Blood Culture - Preliminary Blood - Venous No growth after 24 hours. Assessment and Plan (1) CKD (chronic kidney disease) stage 5, GFR less than 15 ml/min: Status: Acute (2) Acute kidney injury superimposed on CKD: Status: Acute (3) Metabolic acidosis with normal anion gap and failure of bicarbonate regeneration: Status: Acute (4) Renal failure: Status: Acute Plan The patient is a 60-year-old female, new to this facility, with PMH of CVA w Left hemiparesis, Seizure disorder, smoking, CKD4, HTN, HLD, DMII, who presents with worsening shortness of breath and cough. JOE on CKD4-5 with metabolic acidosis Reported discussions about starting dialysis at [facility] with Cr baseline around 2 (not sure, waiting records from [facility]) Cr 3.9 with metaoblic acidosis (compensated) hold on nephrotoxic meds I\O and Cr nephrology following, getting close to dialysis Patient agreeable to start dialysis if needed Large left sided pleural effusion Large, no clear signs of loculation check CT scan Thoracentesis, 900 removed 05/02 Consider aggressive Diuresis\Dialysis after discussing with nephro Swelling in left arm and left leg, patient says has been like that for months US Nicotic dependence NRT while inpatient Seizure disorder restart Depakote and Lamotrigine Type 2 DM Decrease home LAntus dose; will hold and monitor for now SSI Diabetic diet HTN,HLD Continue home medications : Labetalol and Hydralazine at lower doses Hold Statin DVT PPx Heparin bid The patient will need 2 overnight hospital stay for treatment of JOE and pleural effusion pending Thoracentesis and Nephrology recommendations Quality Stroke Does the patient have a stroke diagnosis?: No VTE Prior VTE?: No VTE Risk Level:: Medical - moderate - high VTE Device Contraindication: Treatment Not Indicated VTE Drug Contraindication: N/A - Med Ordered
[2025-05-03 08:31] LABS: Creatinine Pleural Fluid 3.9
[2025-05-03 08:57] LABS: Anion Gap 11 (12-20); Blood Urea Nitrogen 58 mg/dL (9-16); Calcium 7.4 mg/dL (8.4-10.2); Carbon Dioxide 17 mmol/L (22-29); Chloride 112 mmol/L (96-108); Creatinine Clr Calc Pharmacy 15.0; Estimated Glomerular Filt Rate 11; Potassium 4.8 mmol/L (3.3-5.1); Sodium 135 mmol/L (135-145)
[2025-05-03 11:06] LABS: Appearance Urine Clear; Glucose Urine UA 250 mg/dL (Negative); PH 6.5 (5.0-9.0); Specific Gravity - Urine 1.015 (1.005-1.025); UMIC TRIGGER UACC YES
[2025-05-03 11:21] LABS: Glucose, Whole Blood 135 mg/dL (60-115)
[2025-05-03] MEDS: Albuterol/Iprat 2.5/0.5MG 3 ML AMPUL.NEB INHALE (12:43)
--- NOTE | 2025-05-03 16:04 | MHC.CM.PN ---
Patient/family are requesting STR; CM explained that the MD will need to order a a PT Eval for their recommendations. CM will follow.
[2025-05-03 16:54] LABS: Glucose, Whole Blood 137 mg/dL (60-115)
[2025-05-03] MEDS: Insulin Glargine,Hum.rec.anlog 100 UNIT/ML 10 ML VIAL 12 UNIT SUBCUT (20:29)
[2025-05-03 20:33] LABS: Glucose, Whole Blood 126 mg/dL (60-115)
[2025-05-04] VITALS (8 sets, daily range): BP systolic 132–180; BP diastolic 62–81; PULSE 71–90; RESP 18–22; TEMP 36.5–37.2; O2SAT 90–95
[2025-05-04] MEDS: guaiFEN/Codeine SF 200/20/10ML 10 ML LIQUID PO ×3 (03:25→17:46)
[2025-05-04 07:17] LABS: Anion Gap 14 (12-20); Blood Urea Nitrogen 55 mg/dL (9-16); Calcium 7.3 mg/dL (8.4-10.2); Carbon Dioxide 17 mmol/L (22-29); Chloride 110 mmol/L (96-108); Creatinine Clr Calc Pharmacy 15.5; Estimated Glomerular Filt Rate 11; Potassium 4.1 mmol/L (3.3-5.1); Sodium 137 mmol/L (135-145)
[2025-05-04] MEDS: Fluticasone/Vilanterol 200/25 BLST.W.DEV 1 PUFF INHALE (08:12)
[2025-05-04] MEDS: NIFEdipine ER 60 MG TAB.ER.24 PO (08:37)
[2025-05-04] MEDS: Ferrous Sulfate 324 MG TABLET.DR PO (08:38)
[2025-05-04] MEDS: Nicotine 14 MG PATCH.TD24 TRANSDERMA (08:38)
[2025-05-04 08:52] LABS: Glucose, Whole Blood 31 mg/dL (60-115)
[2025-05-04 08:52] LABS: Glucose, Whole Blood 112 mg/dL (60-115)
[2025-05-04] MEDS: 0.9 % Sodium Chloride Flush 3 ML SYRINGE IVFLUSH ×3 (09:52→20:15)
--- NOTE | 2025-05-04 10:36 | MHC.CM.PN ---
Patient is not yet medically cleared for dc (Hypoglycemic).
[2025-05-04] MEDS: cloNIDine 0.2 MG PATCH.TDWK TRANSDERMA (10:46)
--- NOTE | 2025-05-04 11:13 | PM.CNNEP ---
History of Present Illness Reason for Consult Consult date: 05/04/25 Reason for consult: JOE on adv CKD Chief Complaint Chief complaint: Dyspnea, Pain History of Present Illness Narrative: [facility] xconsulted for JOE on ADV CKD stage 4/5 adm with uincr SOB and Pleyral Effusssion s/p tap. Followed by Dr Martinez ( [facility]) for adv CKD Records from [facility] notees SCr 3.5 to 4.o going back 6 months and prelim d/w PT and sister katiana starting HD. S/P kidney Bx in past c/w DNeproapthy. PMH signif as noted belw with adv CKD 4/5, T2DM, HTN, H/ O CVA with L hemiparesis and LUE swelling and rec note episode of urinary retention in past req gorman and Urol eval. Today feeling better with improved breathing buut gen fatigued. Review of Systems Review of Systems Positive coughing positive shortness of breath Yes all other systems are reviewed and are negative PMFSH Past Medical History Medical History Smoking greater than 40 pack years Seizure disorder Social History Social History Housing: House Do you presently have visiting nurse or other home services: Yes Patient Tobacco Use Status: Current everyday Tobacco user Tobacco use type: Cigarette service: No Meds Allergies Allergy/AdvReac Type Severity Reaction Status Date / Time No Known Allergies Allergy Unverified 02/03/20 16:13 amy inhibitors Allergy Unknown cough Uncoded 05/01/25 23:51 Active Medications: Current Medications Acetaminophen (Acetaminophen 325 Mg Tablet) 650 mg PO Q6H PRN PRN Reason: Pain, Mild 1-3,fever,headache Albuterol/Ipratropium (Albuterol/Iprat 2.5/0.5mg 3 Ml Ampul.Neb) 3 ml INHALE RQ4H WHILE AWAKE PRN PRN Reason: Shortness of Breath/Wheezing Last Admin: 05/03/25 12:43 Dose: 3 ml Amlodipine Besylate (Amlodipine Besylate 10 Mg Tablet) 10 mg PO DAILY [facility]; Protocol Last Admin: 05/04/25 08:37 Dose: 10 mg Atorvastatin Calcium (Atorvastatin Calcium 80 Mg Tablet) 80 mg PO BEDTIME [facility] Last Admin: 05/03/25 20:28 Dose: 80 mg Baclofen (Baclofen 10 Mg Tablet) 5 mg PO TID PRN PRN Reason: Muscle Spasm Benzocaine (Throat Lozenge, Medicated Lozenge) 1 lozenge MUCOUS MEM Q2H PRN PRN Reason: Sore Throat Last Admin: 05/03/25 20:28 Dose: 1 lozenge Budesonide (Budesonide 180 Mcg Aer.Pow.Ba) 2 puff INHALE RBID [facility] Last Admin: 05/04/25 08:12 Dose: 2 puff Bumetanide (Bumetanide 1 Mg Tablet) 1 mg PO BIDWM [facility]; Protocol Last Admin: 05/04/25 08:37 Dose: 1 mg Calcitriol (Calcitriol 0.25 Mcg Capsule) 0.25 mcg PO DAILY [facility] Last Admin: 05/04/25 08:38 Dose: 0.25 mcg Calcium Carbonate (Calcium Carbonate 750 Mg Tab.Chew) 750 mg PO Q4H PRN PRN Reason: Heartburn Clonidine (Clonidine 0.2 Mg Patch.Tdwk) 0.2 mg TRANSDERMA WE [facility]; Protocol Last Admin: 05/04/25 10:46 Dose: 0.2 mg Dextrose (Dextrose 50 % 25 Gm/50 Ml Syringe) 25 gm IVPUSH Q15M PRN; Protocol PRN Reason: per Hypoglycemia Standing Ord. Divalproex Sodium (Divalproex Sodium 500 Mg Tablet.) 500 mg PO BID [facility] Last Admin: 05/04/25 08:37 Dose: 500 mg Duloxetine HCl (Duloxetine Hcl 60 Mg Capsule.) 60 mg PO DAILY [facility] Last Admin: 05/04/25 08:37 Dose: 60 mg Ferrous Sulfate (Ferrous Sulfate 324 Mg Tablet.) 324 mg PO DAILY [facility] Last Admin: 05/04/25 08:38 Dose: 324 mg Fluticasone/Vilanterol (Fluticasone/Vilanterol 200/25 Blst.W.Dev) 1 puff INHALE RDAILY [facility] Last Admin: 05/04/25 08:12 Dose: 1 puff Glucose (Glucose Gel 15 Gm Gel..Gram.) 15 gm PO Q15M PRN; Protocol PRN Reason: per Hypoglycemia Standing Ord. Guaifenesin/Codeine Phosphate (Guaifen/Codeine Sf 200/20/10ml 10 Ml Liquid) 10 ml PO Q4H PRN PRN Reason: Cough Last Admin: 05/04/25 08:51 Dose: 10 ml Heparin Sodium (Porcine) (Heparin Sodium,Porcine 5,000 Unit/Ml Vial) 5,000 unit SUBCUT Q12H [facility] Last Admin: 05/04/25 08:38 Dose: 5,000 unit Hydralazine HCl (Hydralazine Hcl 25 Mg Tablet) 25 mg PO TID [facility]; Protocol Last Admin: 05/04/25 08:37 Dose: 25 mg Insulin Glargine (Insulin Glargine,Hum.Rec.Anlog 100 Unit/Ml 10 Ml Vial) 12 unit SUBCUT BEDTIME [facility] Last Admin: 05/03/25 20:29 Dose: 12 unit Insulin Human Lispro (Insulin Lispro 100 Unit/Ml 3 Ml Vial) 0 unit SUBCUT QIDACHS [facility]; Protocol Last Admin: 05/04/25 08:47 Dose: Not Given Labetalol HCl (Labetalol Hcl 100 Mg Tablet) 100 mg PO BID [facility]; Protocol Last Admin: 05/04/25 08:37 Dose: 100 mg Lamotrigine (Lamotrigine 25 Mg Tablet) 25 mg PO BID [facility] Last Admin: 05/04/25 08:37 Dose: 25 mg Magnesium Hydroxide (Milk Of Magnesia 30 Ml Oral.Susp) 30 ml PO DAILY PRN PRN Reason: Constipation Melatonin (Melatonin 3 Mg Tablet) 6 mg PO BEDTIME PRN PRN Reason: Insomnia Nicotine (Nicotine 14 Mg Patch.Td24) 14 mg TRANSDERMA DAILY [facility] Last Admin: 05/04/25 08:38 Dose: 14 mg Nicotine (Nicotine 14 Mg Patch.Td24) 14 mg TRANSDERMA DAILY PRN PRN Reason: Nicotine Cravings Nifedipine (Nifedipine Er 60 Mg Tab.Er.24) 60 mg PO DAILY [facility]; Protocol Last Admin: 05/04/25 08:37 Dose: 60 mg Nitroglycerin (Nitroglycerin 0.4 Mg Tab.Subl) 0.4 mg SUBLINGUAL Q5M PRN PRN Reason: Chest Pain Omeprazole (Omeprazole 20 Mg Capsule.Dr) 20 mg PO DAILY@0630 [facility] Last Admin: 05/04/25 05:41 Dose: 20 mg Ondansetron HCl (Ondansetron Hcl 4 Mg/2 Ml Vial) 4 mg IVPUSH Q8H PRN PRN Reason: Nausea and Vomiting Oxycodone HCl (Oxycodone Hcl Immed Release 5 Mg Tablet) 10 mg PO Q4H PRN PRN Reason: Pain, Moderate(Pain Scale 4-6) Last Admin: 05/02/25 20:24 Dose: 10 mg Quetiapine Fumarate (Quetiapine Fumarate 50 Mg Tablet) 50 mg PO BEDTIME [facility] Last Admin: 05/03/25 20:28 Dose: 50 mg Sodium Chloride (0.9 % Sodium Chloride Flush 3 Ml Syringe) 3 ml IVFLUSH QSHIFT [facility] Last Admin: 05/04/25 09:52 Dose: 3 ml Home Medications ?Medication ?Instructions ?Recorded ?Confirmed ?Last Taken ?Type acetaminophen 500 mg tablet 500 mg PO Q6H PRN Pain 05/02/25 05/02/25 Unknown History amlodipine 10 mg tablet 10 mg PO DAILY 05/02/25 05/02/25 Unknown History atorvastatin 80 mg tablet 80 mg PO BEDTIME cholesterol 05/02/25 05/02/25 05/01/25 History baclofen 10 mg tablet 5 mg PO TID PRN Muscle Spasm 05/02/25 05/02/25 Unknown History budesonide-formoterol HFA 160 1 - 2 puff inhalation Q4-6H PRN 05/02/25 05/02/25 Unknown History mcg-4.5 mcg/actuation aerosol dyspnea inhaler (Symbicort) bumetanide 1 mg tablet 1 mg PO BID 05/02/25 05/02/25 05/01/25 History calcitriol 0.25 mcg capsule 0.25 mcg PO DAILY 05/02/25 05/02/25 05/01/25 History clonidine 0.2 mg/24 hr weekly 0.2 mg topical WE 05/02/25 05/02/25 04/27/25 History transdermal patch divalproex 500 mg tablet,delayed 500 mg PO BID 05/02/25 05/02/25 05/01/25 History release duloxetine 60 mg capsule,delayed 60 mg PO DAILY 05/02/25 05/02/25 05/01/25 History release ferrous sulfate 325 mg (65 mg 325 mg PO DAILY 05/02/25 05/02/25 05/01/25 History iron) tablet hydralazine 50 mg tablet 50 mg PO TID 05/02/25 05/02/2505/01/25 History insulin glargine 100 unit/mL (3 24 unit subcut BEDTIME 05/02/25 05/02/25 05/01/25 History mL) subcutaneous pen (Lantus Solostar U-100 Insulin) insulin lispro 100 unit/mL See Protocol subcut TIDAC 05/02/25 05/02/25 05/01/25 History subcutaneous pen labetalol 100 mg tablet 100 mg PO TID blood pressure 05/02/25 05/02/25 05/01/25 History lamotrigine 25 mg tablet 25 mg PO BID 05/02/25 05/02/25 05/01/25 History nicotine 14 mg/24 hr daily 1 patch transdermal DAILY PRN 05/02/25 05/02/25 Unknown History transdermal patch Nicotine Cravings nifedipine 60 mg tablet,extended 60 mg PO DAILY blood pressure 05/02/25 05/02/25 05/01/25 History release 24 hr nitroglycerin 0.3 mg sublingual 0.3 mg sublingual Q5M PRN Chest 05/02/25 05/02/25 Unknown History tablet Pain pantoprazole 40 mg tablet,delayed 40 mg PO DAILY@0630 05/02/25 05/02/25 05/01/25 History release quetiapine 50 mg tablet 50 mg PO BEDTIME 05/02/25 05/02/25 05/01/25 History Physical Exam Vital Signs: Last Vital Signs Temp 98.9 F 05/04/25 08:00 Pulse 81 05/04/25 08:19 Resp 18 05/04/25 08:19 BP 180/81 H 05/04/25 08:00 Pulse Ox 95 05/04/25 08:00 O2 Del Method Room Air 05/04/25 08:00 BMI result Body Mass Index 24.2 Const Other: Constitutional : Awake, interactive, not in distress Neck : Normal inspection, Supple Cardiovascular : RRR, no JVP, Respiratory : good air entry right side, decrease air enrty to left lung , no air movement at the base, no crackles, wheezes or rhonchi Gastrointestinal: soft, lax, Normal bowel sounds, Non tender Skin : Warm, Dry Neurological : Alert & oriented x3, Left sided hemiparesis Results Lab Results 05/02/25 04:34 05/04/25 06:25 Lab results: Chemistry 05/02/25 05/02/25 05/03/25 00:34 04:34 08:34 Sodium 139 138 135 Potassium 4.8 5.0 4.8 Carbon Dioxide 16 L 15 L 17 L BUN 50 H 50 H 58 H Creatinine 3.92 H 4.02 H* 4.12 H* Calcium 8.2 L D 7.9 L 7.4 L D 05/04/25 06:25 Sodium 137 Potassium 4.1 Carbon Dioxide 17 L BUN 55 H Creatinine 3.98 H Calcium 7.3 L Hematology 05/02/25 05/02/25 00:34 04:34 WBC 14.0 H 12.6 H Hgb 8.0 L 7.4 L Plt Count 255 228 Urinalysis 05/03/25 10:55 Urine Color Yellow Urine Appearance Clear Urine pH 6.5 Ur Specific [place] 1.015 Urine Protein >=1000 (4+) H Urine Glucose (UA) 250 H Urine Ketones Negative Urine Blood Negative Urine Nitrite Negative Ur Leukocyte Esterase Negative Urine RBC 0-2 Urine WBC 0-5 Ur Squamous Epith Cells 3-5 Hyaline Casts 0-2 Assessment and Plan (1) CKD (chronic kidney disease) stage 5, GFR less than 15 ml/min: Status: Acute (2) Acute kidney injury superimposed on CKD: Status: Acute (3) Metabolic acidosis with normal anion gap and failure of bicarbonate regeneration: Status: Acute (4) Renal failure: Status: Acute Plan 1. CKD 5 c/w prog DN/HTN renal dis, need to r/o Obs uropathy playing a role given h/o Ur retention 2. Hypervol: needs to incr diuretics 3. HTN: subotimal; incr BP meds and diuresis 4. Nephrogenic anemia: r/o Fe def and look to start EPO 5. MBD of CKD: tray PTH/vit D Will d/w sister and hospitalist about starting HD as she seeems to be failing med Tx, get U/ renal to r/o hydro/urinatry retention WIll follow w team Procedures Date of Service Date of Service: 05/04/25
[2025-05-04 12:14] LABS: Glucose, Whole Blood 79 mg/dL (60-115)
--- NOTE | 2025-05-04 12:42 | P.PNIM_ITS ---
Subjective Subjective Date of Service: 05/04/25 Interval History: F/u on JOE, advancing renal failure, nearing dialysis s/p thoracentesis, breathing is better, pretty anemia chronic swollen left arm and left leg Physical Exam 2 Vital Signs: Vital Signs: Last Vital Signs Temp 98.9 F 05/04/25 08:00 Pulse 79 05/04/25 12:00 Resp 22 H 05/04/25 12:00 BP 140/78 H 05/04/25 12:00 Pulse Ox 90 L 05/04/25 12:00 O2 Del Method Room Air 05/04/25 12:00 BMI result Body Mass Index 24.2 Const: Other: Constitutional : Awake, interactive, not in distress Neck : Normal inspection, Supple Cardiovascular : RRR, no JVP, swelling of both left and right arm Respiratory : good air entry right side, decrease air enrty to left lung , no air movement at the base, no crackles, wheezes or rhonchi Gastrointestinal: soft, lax, Normal bowel sounds, Non tender Skin : Warm, Dry Neurological : Alert & oriented x3, Left sided hemiparesis Objective Data Active Medications Acetaminophen (Acetaminophen 325 Mg Tablet) 650 mg PO Q6H PRN PRN Reason: Pain, Mild 1-3,fever,headache Albuterol/Ipratropium (Albuterol/Iprat 2.5/0.5mg 3 Ml Ampul.Neb) 3 ml INHALE RQ4H WHILE AWAKE PRN PRN Reason: Shortness of Breath/Wheezing Last Admin: 05/03/25 12:43 Dose: 3 ml Documented By: CHONG Amlodipine Besylate (Amlodipine Besylate 10 Mg Tablet) 10 mg PO DAILY [facility]; Protocol Last Admin: 05/04/25 08:37 Dose: 10 mg Documented By: LUCILA Atorvastatin Calcium (Atorvastatin Calcium 80 Mg Tablet) 80 mg PO BEDTIME [facility] Last Admin: 05/03/25 20:28 Dose: 80 mg Documented By: SHASHI Baclofen (Baclofen 10 Mg Tablet) 5 mg PO TID PRN PRN Reason: Muscle Spasm Benzocaine (Throat Lozenge, Medicated Lozenge) 1 lozenge MUCOUS MEM Q2H PRN PRN Reason: Sore Throat Last Admin: 05/03/25 20:28 Dose: 1 lozenge Documented By: SHASHI Budesonide (Budesonide 180 Mcg Aer.Pow.Raul) 2 puff INHALE RBID [facility] Last Admin: 05/04/25 08:12 Dose: 2 puff Documented By: ELAYNE Bumetanide (Bumetanide 1 Mg Tablet) 1 mg PO BIDWM [facility]; Protocol Last Admin: 05/04/25 08:37 Dose: 1 mg Documented By: LUCILA Calcitriol (Calcitriol 0.25 Mcg Capsule) 0.25 mcg PO DAILY [facility] Last Admin: 05/04/25 08:38 Dose: 0.25 mcg Documented By: LUCILA Calcium Carbonate (Calcium Carbonate 750 Mg Tab.Chew) 750 mg PO Q4H PRN PRN Reason: Heartburn Clonidine (Clonidine 0.2 Mg Patch.Tdwk) 0.2 mg TRANSDERMA WE [facility]; Protocol Last Admin: 05/04/25 10:46 Dose: 0.2 mg Documented By: LUCILA Dextrose (Dextrose 50 % 25 Gm/50 Ml Syringe) 25 gm IVPUSH Q15M PRN; Protocol PRN Reason: per Hypoglycemia Standing Ord. Divalproex Sodium (Divalproex Sodium 500 Mg Tablet.) 500 mg PO BID [facility] Last Admin: 05/04/25 08:37 Dose: 500 mg Documented By: LUCILA Duloxetine HCl (Duloxetine Hcl 60 Mg Capsule.) 60 mg PO DAILY [facility] Last Admin: 05/04/25 08:37 Dose: 60 mg Documented By: LUCILA Ferrous Sulfate (Ferrous Sulfate 324 Mg Tablet.) 324 mg PO DAILY [facility] Last Admin: 05/04/25 08:38 Dose: 324 mg Documented By: LUCILA Fluticasone/Vilanterol (Fluticasone/Vilanterol 200/25 Blst.W.Dev) 1 puff INHALE RDAILY [facility] Last Admin: 05/04/25 08:12 Dose: 1 puff Documented By: ELAYNE Glucose (Glucose Gel 15 Gm Gel..Gram.) 15 gm PO Q15M PRN; Protocol PRN Reason: per Hypoglycemia Standing Ord. Guaifenesin/Codeine Phosphate (Guaifen/Codeine Sf 200/20/10ml 10 Ml Liquid) 10 ml PO Q4H PRN PRN Reason: Cough Last Admin: 05/04/25 08:51 Dose: 10 ml Documented By: LUCILA Heparin Sodium (Porcine) (Heparin Sodium,Porcine 5,000 Unit/Ml Vial) 5,000 unit SUBCUT Q12H [facility] Last Admin: 05/04/25 08:38 Dose: 5,000 unit Documented By: LUCILA Hydralazine HCl (Hydralazine Hcl 25 Mg Tablet) 25 mg PO TID [facility]; Protocol Last Admin: 05/04/25 08:37 Dose: 25 mg Documented By: LUCILA Insulin Glargine (Insulin Glargine,Hum.Rec.Anlog 100 Unit/Ml 10 Ml Vial) 12 unit SUBCUT BEDTIME [facility] Last Admin: 05/03/25 20:29 Dose: 12 unit Documented By: SHASHI Insulin Human Lispro (Insulin Lispro 100 Unit/Ml 3 Ml Vial) 0 unit SUBCUT QIDACHS [facility]; Protocol Last Admin: 05/04/25 12:17 Dose: Not Given Documented By: LUCILA Non-Admin Reason: No Insulin Coverage Labetalol HCl (Labetalol Hcl 100 Mg Tablet) 100 mg PO BID [facility]; Protocol Last Admin: 05/04/25 08:37 Dose: 100 mg Documented By: LUCILA Lamotrigine (Lamotrigine 25 Mg Tablet) 25 mg PO BID [facility] Last Admin: 05/04/25 08:37 Dose: 25 mg Documented By: LUCILA Magnesium Hydroxide (Milk Of Magnesia 30 Ml Oral.Susp) 30 ml PO DAILY PRN PRN Reason: Constipation Melatonin (Melatonin 3 Mg Tablet) 6 mg PO BEDTIME PRN PRN Reason: Insomnia Nicotine (Nicotine 14 Mg Patch.Td24) 14 mg TRANSDERMA DAILY [facility] Last Admin: 05/04/25 08:38 Dose: 14 mg Documented By: LUCILA Nicotine (Nicotine 14 Mg Patch.Td24) 14 mg TRANSDERMA DAILY PRN PRN Reason: Nicotine Cravings Nifedipine (Nifedipine Er 60 Mg Tab.Er.24) 60 mg PO DAILY [facility]; Protocol Last Admin: 05/04/25 08:37 Dose: 60 mg Documented By: LUCILA Nitroglycerin (Nitroglycerin 0.4 Mg Tab.Subl) 0.4 mg SUBLINGUAL Q5M PRN PRN Reason: Chest Pain Omeprazole (Omeprazole 20 Mg Capsule.Dr) 20 mg PO DAILY@0630 [facility] Last Admin: 05/04/25 05:41 Dose: 20 mg Documented By: GIOVANI Ondansetron HCl (Ondansetron Hcl 4 Mg/2 Ml Vial) 4 mg IVPUSH Q8H PRN PRN Reason: Nausea and Vomiting Oxycodone HCl (Oxycodone Hcl Immed Release 5 Mg Tablet) 10 mg PO Q4H PRN PRN Reason: Pain, Moderate(Pain Scale 4-6) Last Admin: 05/02/25 20:24 Dose: 10 mg Documented By: ESTHER Quetiapine Fumarate (Quetiapine Fumarate 50 Mg Tablet) 50 mg PO BEDTIME [facility] Last Admin: 05/03/25 20:28 Dose: 50 mg Documented By: SHASHI Sodium Chloride (0.9 % Sodium Chloride Flush 3 Ml Syringe) 3 ml IVFLUSH QSHIFT [facility] Last Admin: 05/04/25 09:52 Dose: 3 ml Documented By: SANTOL Labs 05/02/25 04:34 05/04/25 06:25 Labs: Laboratory Results - last 24 hr 05/03/25 05/03/25 05/04/25 16:50 20:15 06:25 Anion Gap 14 Estim Creat Clear Calc 15.5 Estimated GFR 11 POC Glucose 137 H 126 H Random Glucose 35 L* Calcium 7.3 L 05/04/25 05/04/25 05/04/25 07:24 07:48 11:30 Anion Gap Estim Creat Clear Calc Estimated GFR POC Glucose 31 L* 112 79 Random Glucose Calcium Microbiology Microbiology Results: Microbiology 05/02/25 13:41 Gram Stain - Final Pleura Routine Culture - Final No growth after 2 days Anaerobic Culture - Preliminary No growth to date. 05/02/25 00:46 Blood Culture - Preliminary Blood - Venous No growth after 48 hours. 05/02/25 00:36 Blood Culture - Preliminary Blood - Venous No growth after 48 hours. Assessment and Plan (1) CKD (chronic kidney disease) stage 5, GFR less than 15 ml/min: Status: Acute (2) Acute kidney injury superimposed on CKD: Status: Acute (3) Metabolic acidosis with normal anion gap and failure of bicarbonate regeneration: Status: Acute (4) Renal failure: Status: Acute Plan The patient is a 60-year-old female, new to this facility, with PMH of CVA w Left hemiparesis, Seizure disorder, smoking, CKD4, HTN, HLD, DMII, who presents with worsening shortness of breath and cough. JOE on CKD4-5 with metabolic acidosis Reported discussions about starting dialysis at [facility] with Cr baseline around 2 (not sure, waiting records from [facility]) Cr 3.9 with metaoblic acidosis (compensated) Nephrology thinking about starting dialysis, will discuss with family, some level of confusion and weakness, possible early urremic symptoms I\O and Cr Patient agreeable to start dialysis if needed Anemia of chronic disease will need IV Iron and likely IV iron Large left sided pleural effusion Large, no clear signs of loculation check CT scan Thoracentesis, 900 removed 05/02 Consider aggressive Diuresis\Dialysis after discussing with nephro Swelling in left arm and left leg, patient says has been like that for months US--no dvt Nicotic dependence NRT while inpatient Seizure disorder restart Depakote and Lamotrigine Type 2 DM with hypoglycemia this morning Decrease home Lntus dose; will hold and monitor for now SSI Diabetic diet HTN,HLD Continue home medications : Labetalol and Hydralazine at lower doses Hold Statin DVT PPx Heparin bid The patient will need 2 overnight hospital stay for treatment of JOE and pleural effusion pending Thoracentesis and Nephrology recommendations Quality Stroke Does the patient have a stroke diagnosis?: No VTE Prior VTE?: No VTE Risk Level:: Medical - moderate - high VTE Device Contraindication: Treatment Not Indicated VTE Drug Contraindication: N/A - Med Ordered
[2025-05-04 12:55] LABS: Iron 14 mcg/dL (30-160); Percent Iron Saturation 11 % (15-50); Total Iron Binding Capacity 125 mcg/dL (228-428); Unsaturated Iron Binding 111 ug/dL
[2025-05-04 13:10] LABS: Ferritin 353 ng/mL (10-250)
[2025-05-04 13:16] LABS: HBc Num1 0.13 S/CO (0.00-0.79); ~Hepatitis B Surface Antibody REACTIVE (Nonreactive)
[2025-05-04 17:00] LABS: Glucose, Whole Blood 82 mg/dL (60-115)
--- NOTE | 2025-05-04 17:29 | PM.EVENT ---
Event Note Date of Service: 05/04/25 Event Note: spoke to Sister (HCP) over the phone, agree to dialysis. Temp Cath for dialysis tomorrow Time Spent With Patient Time: Total time managing care of this patient today ____ minutes.
[2025-05-04 20:02] LABS: Glucose, Whole Blood 129 mg/dL (60-115)
[2025-05-05] VITALS (14 sets, daily range): BP systolic 119–162; BP diastolic 57–71; PULSE 68–84; RESP 13–20; TEMP 36.2–37; O2SAT 91–97
[2025-05-05] MEDS: guaiFEN/Codeine SF 200/20/10ML 10 ML LIQUID PO (05:58)
[2025-05-05 07:12] LABS: Glucose, Whole Blood 111 mg/dL (60-115)
[2025-05-05 07:40] LABS: INTERNATIONAL NORM RATIO 1.0 (0.9-1.1); Prothrombin Time 11.8 SEC (11.2-13.5)
[2025-05-05] MEDS: Ferrous Sulfate 324 MG TABLET.DR PO (07:42)
[2025-05-05] MEDS: NIFEdipine ER 60 MG TAB.ER.24 PO (07:42)
[2025-05-05] MEDS: Nicotine 14 MG PATCH.TD24 TRANSDERMA (07:47)
[2025-05-05 07:59] LABS: Anion Gap 11 (12-20); Blood Urea Nitrogen 57 mg/dL (9-16); Calcium 7.2 mg/dL (8.4-10.2); Carbon Dioxide 18 mmol/L (22-29); Chloride 108 mmol/L (96-108); Creatinine Clr Calc Pharmacy 15.0; Estimated Glomerular Filt Rate 11; Potassium 4.4 mmol/L (3.3-5.1); Sodium 133 mmol/L (135-145)
[2025-05-05] MEDS: Fluticasone/Vilanterol 200/25 BLST.W.DEV 1 PUFF INHALE (08:15)
--- NOTE | 2025-05-05 08:51 | PC.RT ---
pt is receiving 2 steroid inhalers. Pulmicort and Breo. Pt needs to only be on 1.
--- NOTE | 2025-05-05 09:30 | PC.NURSE ---
Pt oriented x3, very lethargic; vss; pt has audible upper airway wheezes and scattered rhonchi on auscultation; SAO2 96% 2 ltr NC; Dr Kevin aware; pt too fragile at this time per Dr Kevin for moderate sedation; will keep pt as comfortable as possible and MD will use local anesthetic
[2025-05-05 11:17] LABS: Glucose, Whole Blood 122 mg/dL (60-115)
--- NOTE | 2025-05-05 11:32 | P.PNIM_ITS ---
Subjective Subjective Date of Service: 05/05/25 Interval History: F/u on JOE, advancing renal failure, nearing dialysis s/p thoracentesis, breathing is better, pretty anemia chronic swollen left arm and left leg some sob, no confusion Physical Exam 2 Vital Signs: Vital Signs: Last Vital Signs Temp 97.2 F 05/05/25 11:27 Pulse 68 05/05/25 11:27 Resp 16 05/05/25 11:27 BP 119/57 L 05/05/25 11:27 Pulse Ox 91 L 05/05/25 11:27 O2 Del Method Room Air 05/05/25 11:27 O2 Flow Rate 2 05/05/25 09:50 BMI result Body Mass Index 24.2 Const: Other: Constitutional : Awake, interactive, not in distress Neck : Normal inspection, Supple Cardiovascular : RRR, no JVP, swelling of both left and right arm Respiratory : good air entry right side, decrease air enrty to left lung , no air movement at the base, no crackles, wheezes or rhonchi Gastrointestinal: soft, lax, Normal bowel sounds, Non tender Skin : Warm, Dry Neurological : Alert & oriented x3, Left sided hemiparesis Objective Data Active Medications Acetaminophen (Acetaminophen 325 Mg Tablet) 650 mg PO Q6H PRN PRN Reason: Pain, Mild 1-3,fever,headache Albuterol/Ipratropium (Albuterol/Iprat 2.5/0.5mg 3 Ml Ampul.Neb) 3 ml INHALE RQ4H WHILE AWAKE PRN PRN Reason: Shortness of Breath/Wheezing Last Admin: 05/03/25 12:43 Dose: 3 ml Documented By: CHONG Amlodipine Besylate (Amlodipine Besylate 10 Mg Tablet) 10 mg PO DAILY [facility]; Protocol Last Admin: 05/05/25 07:42 Dose: 10 mg Documented By: CHONG Atorvastatin Calcium (Atorvastatin Calcium 80 Mg Tablet) 80 mg PO BEDTIME [facility] Last Admin: 05/04/25 20:14 Dose: 80 mg Documented By: GILBERTO Baclofen (Baclofen 10 Mg Tablet) 5 mg PO TID PRN PRN Reason: Muscle Spasm Benzocaine (Throat Lozenge, Medicated Lozenge) 1 lozenge MUCOUS MEM Q2H PRN PRN Reason: Sore Throat Last Admin: 05/03/25 20:28 Dose: 1 lozenge Documented By: SHASHI Budesonide (Budesonide 180 Mcg Aer.Pow.Ba) 2 puff INHALE RBID [facility] Last Admin: 05/05/25 08:15 Dose: 2 puff Documented By: JOSEPH Bumetanide (Bumetanide 1 Mg Tablet) 1 mg PO BIDWM [facility]; Protocol Last Admin: 05/05/25 07:42 Dose: 1 mg Documented By: CHONG Calcitriol (Calcitriol 0.25 Mcg Capsule) 0.25 mcg PO DAILY [facility] Last Admin: 05/05/25 07:42 Dose: 0.25 mcg Documented By: CHONG Calcium Carbonate (Calcium Carbonate 750 Mg Tab.Chew) 750 mg PO Q4H PRN PRN Reason: Heartburn Clonidine (Clonidine 0.2 Mg Patch.Tdwk) 0.2 mg TRANSDERMA WE [facility]; Protocol Last Admin: 05/04/25 10:46 Dose: 0.2 mg Documented By: LUCILA Dextrose (Dextrose 50 % 25 Gm/50 Ml Syringe) 25 gm IVPUSH Q15M PRN; Protocol PRN Reason: per Hypoglycemia Standing Ord. Divalproex Sodium (Divalproex Sodium 500 Mg Tablet.) 500 mg PO BID [facility] Last Admin: 05/05/25 07:42 Dose: 500 mg Documented By: CHONG Duloxetine HCl (Duloxetine Hcl 60 Mg Capsule.) 60 mg PO DAILY [facility] Last Admin: 05/05/25 07:46 Dose: 60 mg Documented By: CHONG Ferrous Sulfate (Ferrous Sulfate 324 Mg Tablet.) 324 mg PO DAILY [facility] Last Admin: 05/05/25 07:42 Dose: 324 mg Documented By: CHONG Fluticasone/Vilanterol (Fluticasone/Vilanterol 200/25 Blst.W.Dev) 1 puff INHALE RDAILY [facility] Last Admin: 05/05/25 08:15 Dose: 1 puff Documented By: JOSEPH Glucose (Glucose Gel 15 Gm Gel..Gram.) 15 gm PO Q15M PRN; Protocol PRN Reason: per Hypoglycemia Standing Ord. Guaifenesin/Codeine Phosphate (Guaifen/Codeine Sf 200/20/10ml 10 Ml Liquid) 10 ml PO Q4H PRN PRN Reason: Cough Last Admin: 05/05/25 05:58 Dose: 10 ml Documented By: GILBERTO Heparin Sodium (Porcine) (Heparin Sodium,Porcine 5,000 Unit/Ml Vial) 5,000 unit SUBCUT Q12H [facility] Last Admin: 05/05/25 09:01 Dose: Not Given Documented By: CHONG Non-Admin Reason: Physician Held Med Hydralazine HCl (Hydralazine Hcl 25 Mg Tablet) 25 mg PO TID [facility]; Protocol Last Admin: 05/05/25 07:42 Dose: 25 mg Documented By: CHONG Insulin Human Lispro (Insulin Lispro 100 Unit/Ml 3 Ml Vial) 0 unit SUBCUT QIDACHS [facility]; Protocol Last Admin: 05/05/25 07:51 Dose: Not Given Documented By: CHONG Non-Admin Reason: No Insulin Coverage Labetalol HCl (Labetalol Hcl 100 Mg Tablet) 100 mg PO BID [facility]; Protocol Last Admin: 05/05/25 07:41 Dose: 100 mg Documented By: CHONG Lamotrigine (Lamotrigine 25 Mg Tablet) 25 mg PO BID [facility] Last Admin: 05/05/25 07:41 Dose: 25 mg Documented By: CHONG Magnesium Hydroxide (Milk Of Magnesia 30 Ml Oral.Susp) 30 ml PO DAILY PRN PRN Reason: Constipation Melatonin (Melatonin 3 Mg Tablet) 6 mg PO BEDTIME PRN PRN Reason: Insomnia Nicotine (Nicotine 14 Mg Patch.Td24) 14 mg TRANSDERMA DAILY [facility] Last Admin: 05/05/25 07:47 Dose: 14 mg Documented By: CHONG Nicotine (Nicotine 14 Mg Patch.Td24) 14 mg TRANSDERMA DAILY PRN PRN Reason: Nicotine Cravings Nifedipine (Nifedipine Er 60 Mg Tab.Er.24) 60 mg PO DAILY [facility]; Protocol Last Admin: 05/05/25 07:42 Dose: 60 mg Documented By: CHONG Nitroglycerin (Nitroglycerin 0.4 Mg Tab.Subl) 0.4 mg SUBLINGUAL Q5M PRN PRN Reason: Chest Pain Omeprazole (Omeprazole 20 Mg Capsule.Dr) 20 mg PO DAILY@0630 [facility] Last Admin: 05/05/25 05:58 Dose: 20 mg Documented By: GILBERTO Ondansetron HCl (Ondansetron Hcl 4 Mg/2 Ml Vial) 4 mg IVPUSH Q8H PRN PRN Reason: Nausea and Vomiting Last Admin: 05/04/25 17:46 Dose: 4 mg Documented By: LUCILA Oxycodone HCl (Oxycodone Hcl Immed Release 5 Mg Tablet) 10 mg PO Q4H PRN PRN Reason: Pain, Moderate(Pain Scale 4-6) Last Admin: 05/02/25 20:24 Dose: 10 mg Documented By: ESTHER Quetiapine Fumarate (Quetiapine Fumarate 50 Mg Tablet) 50 mg PO BEDTIME [facility] Last Admin: 05/04/25 20:14 Dose: 50 mg Documented By: GILBERTO Sodium Chloride (0.9 % Sodium Chloride Flush 3 Ml Syringe) 3 ml IVFLUSH QSHIFT [facility] Last Admin: 05/05/25 07:54 Dose: Not Given Documented By: CHONG Non-Admin Reason: Previously Administered Labs 05/02/25 04:34 05/05/25 07:02 Labs: Laboratory Results - last 24 hr 05/04/25 05/04/25 05/04/25 11:30 12:15 16:55 Hold Purple Top PT INR Anion Gap Estim Creat Clear Calc Estimated GFR POC Glucose 79 82 Random Glucose Calcium Iron 14 L TIBC 125 L % Saturation 11 L Unsat Iron Binding 111 Ferritin 353 H Hep Bs Antibody REACTIVE Hep B Core Total Ab Nonreactive 05/04/25 05/05/25 05/05/25 19:57 07:02 07:08 Hold Purple Top SEE NOTE PT 11.8 INR 1.0 Anion Gap 11 L Estim Creat Clear Calc 15.0 Estimated GFR 11 POC Glucose 129 H 111 Random Glucose 110 Calcium 7.2 L Iron TIBC % Saturation Unsat Iron Binding Ferritin Hep Bs Antibody Hep B Core Total Ab 05/05/25 11:08 Hold Purple Top PT INR Anion Gap Estim Creat Clear Calc Estimated GFR POC Glucose 122 H Random Glucose Calcium Iron TIBC % Saturation Unsat Iron Binding Ferritin Hep Bs Antibody Hep B Core Total Ab Microbiology Microbiology Results: Microbiology 05/02/25 13:41 Gram Stain - Final Pleura Routine Culture - Final No growth after 2 days Anaerobic Culture - Preliminary No growth to date. Assessment and Plan (1) CKD (chronic kidney disease) stage 5, GFR less than 15 ml/min: Status: Acute (2) Acute kidney injury superimposed on CKD: Status: Acute (3) Metabolic acidosis with normal anion gap and failure of bicarbonate regeneration: Status: Acute (4) Renal failure: Status: Acute Plan The patient is a 60-year-old female, new to this facility, with PMH of CVA w Left hemiparesis, Seizure disorder, smoking, CKD4, HTN, HLD, DMII, who presents with worsening shortness of breath and cough. JOE on CKD4-5 with metabolic acidosis, some confusion, concern for early uremic syndrome Reported discussions about starting dialysis at [facility] with Cr baseline around 2 (not sure, waiting records from [facility]) Cr 3.9 with metaoblic acidosis (compensated) Nephrology recommending starting dialysis permcath today 05/05 Will start dialysis sofia Anemia of chronic disease will need IV Iron and likely IV iron Large left sided pleural effusion Large, no clear signs of loculation check CT scan Thoracentesis, 900 removed 05/02 Consider aggressive Diuresis\Dialysis after discussing with nephro Swelling in left arm and left leg, patient says has been like that for months US--no dvt Nicotine dependence NRT while inpatient Seizure disorder restart Depakote and Lamotrigine Type 2 DM with hypoglycemia, hold lanatus SSI Diabetic diet HTN,HLD Continue home medications : Labetalol and Hydralazine at lower doses Hold Statin DVT PPx Heparin bid The patient will need 2 overnight hospital stay for treatment of JOE and pleural effusion pending Thoracentesis and Nephrology recommendations Quality Stroke Does the patient have a stroke diagnosis?: No VTE Prior VTE?: No VTE Risk Level:: Medical - moderate - high VTE Device Contraindication: Treatment Not Indicated VTE Drug Contraindication: N/A - Med Ordered
[2025-05-05 12:10] LABS: MANUAL DIFF FLAG NO
[2025-05-05 12:15] LABS: Hematocrit 21.4 % (37.0-47.0); Imm Gran Abs Auto 0.03 X10*3/uL (0.00-0.03); Imm Gran Pct Auto 0.5 % (0.0-0.4); Lymphocytes Absolute Auto 0.9 X10*3/uL (1.2-4.9); Mean Corpuscular HGB Conc 32.7 g/dl (31.0-35.0); Mean Corpuscular Hemoglobin 30.3 pg (27.0-33.0); Mean Corpuscular Volume 92.6 fL (80.0-98.0); NRBC Abs Auto 0.000 X10*3/uL (0.0-0.012); NRBC Pct Auto 0.0 /100WBC (0.0-0.2); Platelet Count 157 X10*3/uL (160-400); Red Blood Count 2.31 X10*6/uL (4.20-5.50); White Blood Count 5.6 X10*3/uL (4.8-10.8)
[2025-05-05 12:25] LABS: Hemoglobin 7.0 g/dl (12.0-16.0)
--- NOTE | 2025-05-05 12:59 | PM.PNNEP ---
Subjective Subjective Date of Service: 05/05/25 Interval history: Seen and examied, events noted s/p permcath this am [facility] procedure Physical Exam Vital Signs: Vital Signs: Last Vital Signs Temp 97.2 F 05/05/25 11:27 Pulse 68 05/05/25 11:27 Resp 16 05/05/25 11:27 BP 119/57 L 05/05/25 11:27 Pulse Ox 91 L 05/05/25 11:27 O2 Del Method Room Air 05/05/25 11:27 O2 Flow Rate 2 05/05/25 09:50 BMI result Body Mass Index 24.2 Const: Other: Constitutional : Awake, interactive, not in distress Neck : Normal inspection, Supple Cardiovascular : RRR, no JVP, Respiratory : good air entry right side, decrease air enrty to left lung , no air movement at the base, no crackles, wheezes or rhonchi Gastrointestinal: soft, lax, Normal bowel sounds, Non tender Skin : Warm, Dry Neurological : Alert & oriented x3, Left sided hemiparesis Objective Data Labs 05/05/25 07:02 05/05/25 07:02 Labs: Laboratory Results - last 24 hr 05/04/25 05/04/25 05/04/25 12:15 16:55 19:57 WBC RBC Hgb Hct MCV MCH MCHC RDW Plt Count MPV Immature Gran % (Auto) Neut % (Auto) Lymph % (Auto) [place] % (Auto) Eos % (Auto) Baso % (Auto) Lymph # (Auto) [place] # (Auto) Eos # (Auto) Baso # (Auto) Abs Immat Gran (auto) Absolute Neuts (auto) Absolute Nucleated RBC Nucleated RBC % (auto) Hold Purple Top PT INR Sodium Potassium Chloride Carbon Dioxide Anion Gap BUN Creatinine Estim Creat Clear Calc Estimated GFR POC Glucose 82 129 H Random Glucose Calcium Ferritin 353 H Hep Bs Antibody REACTIVE Hep B Core Total Ab Nonreactive 05/05/25 05/05/25 05/05/25 07:02 07:08 11:08 WBC 5.6 RBC 2.31 L Hgb 7.0 L* Hct 21.4 L MCV 92.6 MCH 30.3 MCHC 32.7 RDW 14.5 Plt Count 157 L D MPV 10.6 Immature Gran % (Auto) 0.5 H Neut % (Auto) 76.1 H Lymph % (Auto) 15.6 L [place] % (Auto) 7.2 Eos % (Auto) 0.2 Baso % (Auto) 0.4 Lymph # (Auto) 0.9 L [place] # (Auto) 0.4 Eos # (Auto) 0.0 Baso # (Auto) 0.0 Abs Immat Gran (auto) 0.03 Absolute Neuts (auto) 4.3 Absolute Nucleated RBC 0.000 Nucleated RBC % (auto) 0.0 Hold Purple Top SEE NOTE PT 11.8 INR 1.0 Sodium 133 L Potassium 4.4 Chloride 108 Carbon Dioxide 18 L Anion Gap 11 L BUN 57 H Creatinine 4.10 H* Estim Creat Clear Calc 15.0 Estimated GFR 11 POC Glucose 111 122 H Random Glucose 110 Calcium 7.2 L Ferritin Hep Bs Antibody Hep B Core Total Ab Microbiology Microbiology Results: Microbiology 05/02/25 13:41 Pleura Gram Stain - Final 05/02/25 13:41 Pleura Routine Culture - Final No growth after 2 days 05/02/25 13:41 Pleura Anaerobic Culture - Preliminary No growth to date. 05/02/25 00:46 Blood - Venous Blood Culture - Preliminary No growth after 48 hours. 05/02/25 00:36 Blood - Venous Blood Culture - Preliminary No growth after 48 hours. Procedures Date of Service Date of Service: 05/05/25 Assessment & Plan Assessment and plan (1) CKD (chronic kidney disease) stage 5, GFR less than 15 ml/min: Status: Acute (2) Acute kidney injury superimposed on CKD: Status: Acute (3) Metabolic acidosis with normal anion gap and failure of bicarbonate regeneration: Status: Acute (4) Renal failure: Status: Acute Plan 1. CKD 5 c/w prog DN/HTN renal dis 2. Hypervol: needs to incr diuretics, and now will pull fluid w HD today 3. HTN: subotimal; incr BP meds and diuresis 4. Nephrogenic anemia: r/o Fe def and look to start EPO 5. MBD of CKD: tray PTH/vit D PLNA: starti HD today as she seeems to be failing med Tx: epo as ordered getting oupt HD spot ( [facility] [id number]) and will ask CM to help coordiante WIll follow w team Time Spent With Patient Time: Total time managing care of this patient today ____ minutes. Progress Note: Quality Stroke Does the patient have a stroke diagnosis?: No
[2025-05-05 13:28] LABS: HBsAGNum1 0.24 S/CO (0.00-0.99); Hepatitis B Surface Antigen Negative (Negative)
[2025-05-05] MEDS: 0.9 % Sodium Chloride Flush 3 ML SYRINGE IVFLUSH ×2 (16:04→19:53)
[2025-05-05 16:30] LABS: Glucose, Whole Blood 127 mg/dL (60-115)
[2025-05-05] MEDS: Milk of Magnesia 30 ML ORAL.SUSP PO (17:11)
--- NOTE | 2025-05-05 18:02 | PC.NURSE ---
pt arrived from [facility] , pt alert , drowsy , sister at bedside , no complaints of pain . pt aware of plan of care
[2025-05-05 20:37] LABS: Glucose, Whole Blood 129 mg/dL (60-115)
[2025-05-06] VITALS (10 sets, daily range): BP systolic 130–165; BP diastolic 60–71; PULSE 70–80; RESP 16–18; TEMP 36.1–36.6; O2SAT 93–96
[2025-05-06 06:45] LABS: Hematocrit 21.7 % (37.0-47.0); Hemoglobin 7.2 g/dl (12.0-16.0); Mean Corpuscular HGB Conc 33.2 g/dl (31.0-35.0); Mean Corpuscular Hemoglobin 30.1 pg (27.0-33.0); Mean Corpuscular Volume 90.8 fL (80.0-98.0); NRBC Abs Auto 0.000 X10*3/uL (0.0-0.012); NRBC Pct Auto 0.0 /100WBC (0.0-0.2); Platelet Count 154 X10*3/uL (160-400); Red Blood Count 2.39 X10*6/uL (4.20-5.50); White Blood Count 5.0 X10*3/uL (4.8-10.8)
[2025-05-06] MEDS: oxyCODONE HCl Immed Release 5 MG TABLET 10 MG PO ×3 (07:04→14:53)
[2025-05-06] MEDS: 0.9 % Sodium Chloride Flush 3 ML SYRINGE IVFLUSH ×3 (07:06→20:31)
[2025-05-06 07:12] LABS: Anion Gap 14 (12-20); Blood Urea Nitrogen 43 mg/dL (9-16); Calcium 7.3 mg/dL (8.4-10.2); Carbon Dioxide 20 mmol/L (22-29); Chloride 105 mmol/L (96-108); Creatinine Clr Calc Pharmacy 17.7; Estimated Glomerular Filt Rate 13; Potassium 4.3 mmol/L (3.3-5.1); Sodium 135 mmol/L (135-145)
[2025-05-06 07:27] LABS: Glucose, Whole Blood 112 mg/dL (60-115)
[2025-05-06] MEDS: Fluticasone/Vilanterol 200/25 BLST.W.DEV 1 PUFF INHALE (08:27)
--- NOTE | 2025-05-06 11:03 | HO.PM.IMPN ---
Subjective Subjective Date of Service: 05/06/25 Interval History: Now ESRD, started dialysis yestederday for 2 hours and having 3 hours today, tolerating well Physical Exam Vital Signs: Vital Signs: Last Vital Signs Temp 97.2 F 05/06/25 03:03 Pulse 78 05/06/25 08:28 Resp 16 05/06/25 08:28 BP 140/64 H 05/06/25 03:03 Pulse Ox 94 05/06/25 03:03 O2 Del Method Room Air 05/06/25 03:03 O2 Flow Rate 2 05/05/25 23:33 BMI result Body Mass Index 24.2 Const: Other: General: AO X 3, no acute distress Resp: CTA bilateral CVS: S1,S2,RRR GI: +BS, NT, no distention Skin: No rash Neuro: motor grossly intact Psych: appropriate affect Objective Data Active Medications Acetaminophen (Acetaminophen 325 Mg Tablet) 650 mg PO Q6H PRN PRN Reason: Pain, Mild 1-3,fever,headache Last Admin: 05/05/25 21:00 Dose: 650 mg Documented By: ROSY Albuterol/Ipratropium (Albuterol/Iprat 2.5/0.5mg 3 Ml Ampul.Neb) 3 ml INHALE RQ4H WHILE AWAKE PRN PRN Reason: Shortness of Breath/Wheezing Last Admin: 05/03/25 12:43 Dose: 3 ml Documented By: HCONG Amlodipine Besylate (Amlodipine Besylate 10 Mg Tablet) 10 mg PO DAILY REPLACED BY [facility]; Protocol Last Admin: 05/05/25 07:42 Dose: 10 mg Documented By: CHONG Atorvastatin Calcium (Atorvastatin Calcium 80 Mg Tablet) 80 mg PO BEDTIME REPLACED BY [facility] Last Admin: 05/05/25 19:51 Dose: 80 mg Documented By: ROSY Baclofen (Baclofen 10 Mg Tablet) 5 mg PO TID PRN PRN Reason: Muscle Spasm Benzocaine (Throat Lozenge, Medicated Lozenge) 1 lozenge MUCOUS MEM Q2H PRN PRN Reason: Sore Throat Last Admin: 05/03/25 20:28 Dose: 1 lozenge Documented By: SHASHI Budesonide (Budesonide 180 Mcg Aer.Pow.Ba) 2 puff INHALE RBID REPLACED BY [facility] Last Admin: 05/06/25 08:27 Dose: 2 puff Documented By: JOSEPH Bumetanide (Bumetanide 1 Mg Tablet) 1 mg PO BIDWM REPLACED BY [facility]; Protocol Last Admin: 05/05/25 16:03 Dose: 1 mg Documented By: CHONG Calcitriol (Calcitriol 0.25 Mcg Capsule) 0.25 mcg PO DAILY REPLACED BY [facility] Last Admin: 05/06/25 07:34 Dose: Not Given Documented By: KYLER Non-Admin Reason: Off unit: Dialysis Calcium Carbonate (Calcium Carbonate 750 Mg Tab.Chew) 750 mg PO Q4H PRN PRN Reason: Heartburn Clonidine (Clonidine 0.2 Mg Patch.Tdwk) 0.2 mg TRANSDERMA WE REPLACED BY [facility]; Protocol Last Admin: 05/04/25 10:46 Dose: 0.2 mg Documented By: LUCILA Dextrose (Dextrose 50 % 25 Gm/50 Ml Syringe) 25 gm IVPUSH Q15M PRN; Protocol PRN Reason: per Hypoglycemia Standing Ord. Divalproex Sodium (Divalproex Sodium 500 Mg Tablet.) 500 mg PO BID REPLACED BY [facility] Last Admin: 05/06/25 07:04 Dose: 500 mg Documented By: KYLER Duloxetine HCl (Duloxetine Hcl 60 Mg Capsule.) 60 mg PO DAILY REPLACED BY [facility] Last Admin: 05/06/25 07:04 Dose: 60 mg Documented By: KYLER Ferrous Sulfate (Ferrous Sulfate 324 Mg Tablet.) 324 mg PO DAILY REPLACED BY [facility] Last Admin: 05/05/25 07:42 Dose: 324 mg Documented By: CHONG Fluticasone/Vilanterol (Fluticasone/Vilanterol 200/25 Blst.W.Dev) 1 puff INHALE RDAILY REPLACED BY [facility] Last Admin: 05/06/25 08:27 Dose: 1 puff Documented By: JOSEPH Glucose (Glucose Gel 15 Gm Gel..Gram.) 15 gm PO Q15M PRN; Protocol PRN Reason: per Hypoglycemia Standing Ord. Guaifenesin/Codeine Phosphate (Guaifen/Codeine Sf 200/20/10ml 10 Ml Liquid) 10 ml PO Q4H PRN PRN Reason: Cough Last Admin: 05/05/25 05:58 Dose: 10 ml Documented By: GILBERTO Heparin Sodium (Porcine) (Heparin Sodium,Porcine 5,000 Unit/Ml Vial) 5,000 unit SUBCUT Q12H REPLACED BY [facility] Last Admin: 05/06/25 07:34 Dose: Not Given Documented By: KYLER Non-Admin Reason: Off unit: Dialysis Hydralazine HCl (Hydralazine Hcl 25 Mg Tablet) 25 mg PO TID REPLACED BY [facility]; Protocol Last Admin: 05/05/25 19:51 Dose: 25 mg Documented By: ROSY Insulin Human Lispro (Insulin Lispro 100 Unit/Ml 3 Ml Vial) 0 unit SUBCUT QIDACHS REPLACED BY [facility]; Protocol Last Admin: 05/06/25 07:23 Dose: Not Given Documented By: KYLER Non-Admin Reason: No Insulin Coverage Labetalol HCl (Labetalol Hcl 100 Mg Tablet) 100 mg PO BID REPLACED BY [facility]; Protocol Last Admin: 05/05/25 19:52 Dose: 100 mg Documented By: ROSY Lamotrigine (Lamotrigine 25 Mg Tablet) 25 mg PO BID REPLACED BY [facility] Last Admin: 05/05/25 19:52 Dose: 25 mg Documented By: ROSY Magnesium Hydroxide (Milk Of Magnesia 30 Ml Oral.Susp) 30 ml PO DAILY PRN PRN Reason: Constipation Last Admin: 05/05/25 17:11 Dose: 30 ml Documented By: CHONG Melatonin (Melatonin 3 Mg Tablet) 6 mg PO BEDTIME PRN PRN Reason: Insomnia Nicotine (Nicotine 14 Mg Patch.Td24) 14 mg TRANSDERMA DAILY REPLACED BY [facility] Last Admin: 05/06/25 07:35 Dose: Not Given Documented By: KYLER Non-Admin Reason: Off unit: Dialysis Nicotine (Nicotine 14 Mg Patch.Td24) 14 mg TRANSDERMA DAILY PRN PRN Reason: Nicotine Cravings Nifedipine (Nifedipine Er 60 Mg Tab.Er.24) 60 mg PO DAILY REPLACED BY [facility]; Protocol Last Admin: 05/05/25 07:42 Dose: 60 mg Documented By: CHONG Nitroglycerin (Nitroglycerin 0.4 Mg Tab.Subl) 0.4 mg SUBLINGUAL Q5M PRN PRN Reason: Chest Pain Omeprazole (Omeprazole 20 Mg Capsule.Dr) 20 mg PO DAILY@0630 REPLACED BY [facility] Last Admin: 05/06/25 05:49 Dose: Not Given Documented By: ROSY Non-Admin Reason: NPO Ondansetron HCl (Ondansetron Hcl 4 Mg/2 Ml Vial) 4 mg IVPUSH Q8H PRN PRN Reason: Nausea and Vomiting Last Admin: 05/04/25 17:46 Dose: 4 mg Documented By: LUCILA Oxycodone HCl (Oxycodone Hcl Immed Release 5 Mg Tablet) 10 mg PO Q4H PRN PRN Reason: Pain, Moderate(Pain Scale 4-6) Last Admin: 05/06/25 07:04 Dose: 10 mg Documented By: KYLER Quetiapine Fumarate (Quetiapine Fumarate 50 Mg Tablet) 50 mg PO BEDTIME REPLACED BY [facility] Last Admin: 05/05/25 19:52 Dose: 50 mg Documented By: ROSY Sodium Chloride (0.9 % Sodium Chloride Flush 3 Ml Syringe) 3 ml IVFLUSH QSHIFT REPLACED BY [facility] Last Admin: 05/06/25 07:06 Dose: 3 ml Documented By: KYLER Labs 05/06/25 06:19 05/06/25 06:19 Labs: Laboratory Results - last 24 hr 05/04/25 05/05/25 05/05/25 12:15 07:02 11:08 MCV 92.6 MCH 30.3 MCHC 32.7 RDW 14.5 Plt Count 157 L D MPV 10.6 Immature Gran % (Auto) 0.5 H Neut % (Auto) 76.1 H Lymph % (Auto) 15.6 L Hart % (Auto) 7.2 Eos % (Auto) 0.2 Baso % (Auto) 0.4 Lymph # (Auto) 0.9 L Hart # (Auto) 0.4 Eos # (Auto) 0.0 Baso # (Auto) 0.0 Abs Immat Gran (auto) 0.03 Absolute Neuts (auto) 4.3 Absolute Nucleated RBC 0.000 Nucleated RBC % (auto) 0.0 Smear Path Review SEE NOTE Anion Gap Estim Creat Clear Calc Estimated GFR POC Glucose 122 H Random Glucose Calcium Hep Bs Antigen Negative Blood Type Antibody Screen 05/05/25 05/05/25 05/06/25 16:24 20:29 06:19 MCV 90.8 MCH 30.1 MCHC 33.2 RDW 14.2 Plt Count 154 L MPV 10.0 Immature Gran % (Auto) Neut % (Auto) Lymph % (Auto) Hart % (Auto) Eos % (Auto) Baso % (Auto) Lymph # (Auto) Hart # (Auto) Eos # (Auto) Baso # (Auto) Abs Immat Gran (auto) Absolute Neuts (auto) Absolute Nucleated RBC 0.000 Nucleated RBC % (auto) 0.0 Smear Path Review Anion Gap 14 Estim Creat Clear Calc Estimated GFR POC Glucose 127 H 129 H Random Glucose Calcium Hep Bs Antigen Blood Type Antibody Screen 05/06/25 05/06/25 05/06/25 06:19 06:19 06:19 MCV MCH MCHC RDW Plt Count MPV Immature Gran % (Auto) Neut % (Auto) Lymph % (Auto) Hart % (Auto) Eos % (Auto) Baso % (Auto) Lymph # (Auto) Hart # (Auto) Eos # (Auto) Baso # (Auto) Abs Immat Gran (auto) Absolute Neuts (auto) Absolute Nucleated RBC Nucleated RBC % (auto) Smear Path Review Anion Gap Cancelled Estim Creat Clear Calc 17.7 Cancelled Estimated GFR 13 Cancelled POC Glucose Random Glucose 102 Calcium Hep Bs Antigen Blood Type Antibody Screen 05/06/25 05/06/25 05/06/25 06:19 06:19 07:22 MCV MCH MCHC RDW Plt Count MPV Immature Gran % (Auto) Neut % (Auto) Lymph % (Auto) Hart % (Auto) Eos % (Auto) Baso % (Auto) Lymph # (Auto) Hart # (Auto) Eos # (Auto) Baso # (Auto) Abs Immat Gran (auto) Absolute Neuts (auto) Absolute Nucleated RBC Nucleated RBC % (auto) Smear Path Review Anion Gap Estim Creat Clear Calc Estimated GFR POC Glucose 112 Random Glucose Cancelled Calcium 7.3 L Cancelled Hep Bs Antigen Blood Type O Negative Antibody Screen NEGATIVE Microbiology Microbiology Results: Microbiology 05/02/25 13:41 Gram Stain - Final Pleura Routine Culture - Final No growth after 2 days Anaerobic Culture - Preliminary No growth to date. Assessment and Plan (1) CKD (chronic kidney disease) stage 5, GFR less than 15 ml/min: Status: Acute (2) Acute kidney injury superimposed on CKD: Status: Acute (3) Metabolic acidosis with normal anion gap and failure of bicarbonate regeneration: Status: Acute (4) Renal failure: Status: Acute Plan The patient is a 60-year-old female, new to this facility, with PMH of CVA w Left hemiparesis, Seizure disorder, smoking, CKD4, HTN, HLD, DMII, who presents with worsening shortness of breath and cough. JOE on CKD4-5 with metabolic acidosis, some confusion, concern for early uremic syndrome Reported discussions about starting dialysis at [facility] with Cr baseline around 2 (not sure, waiting records from [facility]) Cr 3.9 with metaoblic acidosis (compensated) Nephrology recommending starting dialysis permcath today 05/05, started dialysis, second time 05/06 Anemia of chronic disease will need IV Iron and likely IV iron transfuse for hgb < 7 Large left sided pleural effusion Large, no clear signs of loculation Thoracentesis, 900 removed 05/02 Swelling in left arm and left leg, patient says has been like that for months US--no dvt Nicotine dependence NRT while inpatient Seizure disorder restart Depakote and Lamotrigine Type 2 DM with hypoglycemia, hold lanatus SSI Diabetic diet HTN,HLD Continue home medications : Labetalol and Hydralazine at lower doses Hold Statin DVT PPx Heparin bid The patient will need 2 overnight hospital stay for treatment of JOE and pleural effusion pending Thoracentesis and Nephrology recommendations Quality Stroke Does the patient have a stroke diagnosis?: No VTE Prior VTE?: No VTE Risk Level:: Medical - moderate - high VTE Device Contraindication: Treatment Not Indicated VTE Drug Contraindication: N/A - Med Ordered
[2025-05-06] MEDS: Ferrous Sulfate 324 MG TABLET.DR PO (11:21)
[2025-05-06] MEDS: NIFEdipine ER 60 MG TAB.ER.24 PO (11:21)
[2025-05-06 11:52] LABS: Glucose, Whole Blood 104 mg/dL (60-115)
[2025-05-06 16:02] LABS: Glucose, Whole Blood 112 mg/dL (60-115)
--- NOTE | 2025-05-06 16:19 | MHC.CM.PN ---
PT NOT YET MEDICALLY CLEARED MAY NEED SNF PER FAMILY PT EVAL REQUESTED
[2025-05-06 19:57] LABS: Glucose, Whole Blood 127 mg/dL (60-115)
[2025-05-07 03:37] VITALS: BP 143/65; PULSE 77; RESP 16; TEMP 36.6; O2SAT 95
[2025-05-07 07:53] VITALS: PULSE 76; RESP 16; O2SAT 93
[2025-05-07] MEDS: Fluticasone/Vilanterol 200/25 BLST.W.DEV 1 PUFF INHALE (07:53)
[2025-05-07 09:54] LABS: Glucose, Whole Blood 103 mg/dL (60-115)
[2025-05-07] MEDS: NIFEdipine ER 60 MG TAB.ER.24 PO (10:14)
[2025-05-07] MEDS: Ferrous Sulfate 324 MG TABLET.DR PO (10:14)
[2025-05-07] MEDS: 0.9 % Sodium Chloride Flush 3 ML SYRINGE IVFLUSH ×3 (10:23→20:25)
[2025-05-07 10:51] VITALS: BP 170/82; PULSE 88; RESP 18; TEMP 36.2; O2SAT 99
[2025-05-07 11:23] LABS: Hematocrit 23.1 % (37.0-47.0); Hemoglobin 7.6 g/dl (12.0-16.0); Mean Corpuscular HGB Conc 32.9 g/dl (31.0-35.0); Mean Corpuscular Hemoglobin 29.3 pg (27.0-33.0); Mean Corpuscular Volume 89.2 fL (80.0-98.0); NRBC Abs Auto 0.000 X10*3/uL (0.0-0.012); NRBC Pct Auto 0.0 /100WBC (0.0-0.2); Platelet Count 155 X10*3/uL (160-400); Red Blood Count 2.59 X10*6/uL (4.20-5.50); White Blood Count 7.0 X10*3/uL (4.8-10.8)
[2025-05-07 11:28] LABS: Glucose, Whole Blood 115 mg/dL (60-115)
--- NOTE | 2025-05-07 11:55 | P.PNIM_ITS ---
Subjective Subjective Date of Service: 05/07/25 Interval History: Tolerating dialysis thus far, this is her 3rd session Physical Exam 2 Vital Signs: Vital Signs: Last Vital Signs Temp 97.2 F 05/07/25 10:51 Pulse 88 05/07/25 10:51 Resp 18 05/07/25 10:51 BP 170/82 H 05/07/25 10:51 Pulse Ox 99 05/07/25 10:51 O2 Del Method Nasal Cannula 05/07/25 10:51 O2 Flow Rate 2 05/07/25 10:51 BMI result Body Mass Index 24.2 Const: Other: General: AO X 3, no acute distress Resp: CTA bilateral CVS: S1,S2,RRR GI: +BS, NT, no distention Skin: No rash Neuro: motor grossly intact Psych: appropriate affect Objective Data Active Medications Acetaminophen (Acetaminophen 325 Mg Tablet) 650 mg PO Q6H PRN PRN Reason: Pain, Mild 1-3,fever,headache Last Admin: 05/05/25 21:00 Dose: 650 mg Documented By: ROSY Albuterol/Ipratropium (Albuterol/Iprat 2.5/0.5mg 3 Ml Ampul.Neb) 3 ml INHALE RQ4H WHILE AWAKE PRN PRN Reason: Shortness of Breath/Wheezing Last Admin: 05/03/25 12:43 Dose: 3 ml Documented By: CHONG Amlodipine Besylate (Amlodipine Besylate 10 Mg Tablet) 10 mg PO DAILY [facility]; Protocol Last Admin: 05/07/25 10:14 Dose: 10 mg Documented By: JARRETT Atorvastatin Calcium (Atorvastatin Calcium 80 Mg Tablet) 80 mg PO BEDTIME [facility] Last Admin: 05/06/25 20:31 Dose: 80 mg Documented By: ROSY Baclofen (Baclofen 10 Mg Tablet) 5 mg PO TID PRN PRN Reason: Muscle Spasm Benzocaine (Throat Lozenge, Medicated Lozenge) 1 lozenge MUCOUS MEM Q2H PRN PRN Reason: Sore Throat Last Admin: 05/03/25 20:28 Dose: 1 lozenge Documented By: SHASHI Budesonide (Budesonide 180 Mcg Aer.Pow.Ba) 2 puff INHALE RBID [facility] Last Admin: 05/07/25 07:53 Dose: 2 puff Documented By: GLENYS Bumetanide (Bumetanide 1 Mg Tablet) 1 mg PO BIDWM [facility]; Protocol Last Admin: 05/07/25 10:14 Dose: 1 mg Documented By: JARRETT Calcitriol (Calcitriol 0.25 Mcg Capsule) 0.25 mcg PO DAILY [facility] Last Admin: 05/07/25 10:14 Dose: 0.25 mcg Documented By: JARRETT Calcium Carbonate (Calcium Carbonate 750 Mg Tab.Chew) 750 mg PO Q4H PRN PRN Reason: Heartburn Clonidine (Clonidine 0.2 Mg Patch.Tdwk) 0.2 mg TRANSDERMA WE [facility]; Protocol Last Admin: 05/04/25 10:46 Dose: 0.2 mg Documented By: LUCILA Dextrose (Dextrose 50 % 25 Gm/50 Ml Syringe) 25 gm IVPUSH Q15M PRN; Protocol PRN Reason: per Hypoglycemia Standing Ord. Divalproex Sodium (Divalproex Sodium 500 Mg Tablet.) 500 mg PO BID [facility] Last Admin: 05/07/25 10:14 Dose: 500 mg Documented By: JARRETT Duloxetine HCl (Duloxetine Hcl 60 Mg Capsule.) 60 mg PO DAILY [facility] Last Admin: 05/07/25 10:14 Dose: 60 mg Documented By: JARRETT Ferrous Sulfate (Ferrous Sulfate 324 Mg Tablet.) 324 mg PO DAILY [facility] Last Admin: 05/07/25 10:14 Dose: 324 mg Documented By: JARRETT Fluticasone/Vilanterol (Fluticasone/Vilanterol 200/25 Blst.W.Dev) 1 puff INHALE RDAILY [facility] Last Admin: 05/07/25 07:53 Dose: 1 puff Documented By: GLENYS Glucose (Glucose Gel 15 Gm Gel..Gram.) 15 gm PO Q15M PRN; Protocol PRN Reason: per Hypoglycemia Standing Ord. Guaifenesin/Codeine Phosphate (Guaifen/Codeine Sf 200/20/10ml 10 Ml Liquid) 10 ml PO Q4H PRN PRN Reason: Cough Last Admin: 05/05/25 05:58 Dose: 10 ml Documented By: GILBERTO Heparin Sodium (Porcine) (Heparin Sodium,Porcine 5,000 Unit/Ml Vial) 5,000 unit SUBCUT Q12H [facility] Last Admin: 05/07/25 10:13 Dose: 5,000 unit Documented By: JARRETT Hydralazine HCl (Hydralazine Hcl 25 Mg Tablet) 25 mg PO TID [facility]; Protocol Last Admin: 05/07/25 10:15 Dose: 25 mg Documented By: JARRETT Insulin Human Lispro (Insulin Lispro 100 Unit/Ml 3 Ml Vial) 0 unit SUBCUT QIDACHS [facility]; Protocol Last Admin: 05/07/25 11:30 Dose: Not Given Documented By: JARRETT Non-Admin Reason: No Insulin Coverage Labetalol HCl (Labetalol Hcl 100 Mg Tablet) 100 mg PO BID [facility]; Protocol Last Admin: 05/07/25 10:14 Dose: 100 mg Documented By: JARRETT Lamotrigine (Lamotrigine 25 Mg Tablet) 25 mg PO BID [facility] Last Admin: 05/07/25 10:14 Dose: 25 mg Documented By: JARRETT Magnesium Hydroxide (Milk Of Magnesia 30 Ml Oral.Susp) 30 ml PO DAILY PRN PRN Reason: Constipation Last Admin: 05/05/25 17:11 Dose: 30 ml Documented By: CHONG Melatonin (Melatonin 3 Mg Tablet) 6 mg PO BEDTIME PRN PRN Reason: Insomnia Nicotine (Nicotine 14 Mg Patch.Td24) 14 mg TRANSDERMA DAILY [facility] Last Admin: 05/07/25 10:24 Dose: Not Given Documented By: JARRETT Non-Admin Reason: Off unit: Dialysis Nicotine (Nicotine 14 Mg Patch.Td24) 14 mg TRANSDERMA DAILY PRN PRN Reason: Nicotine Cravings Nifedipine (Nifedipine Er 60 Mg Tab.Er.24) 60 mg PO DAILY [facility]; Protocol Last Admin: 05/07/25 10:14 Dose: 60 mg Documented By: JARRETT Nitroglycerin (Nitroglycerin 0.4 Mg Tab.Subl) 0.4 mg SUBLINGUAL Q5M PRN PRN Reason: Chest Pain Omeprazole (Omeprazole 20 Mg Capsule.Dr) 20 mg PO DAILY@0630 [facility] Last Admin: 05/07/25 05:07 Dose: 20 mg Documented By: ROSY Ondansetron HCl (Ondansetron Hcl 4 Mg/2 Ml Vial) 4 mg IVPUSH Q8H PRN PRN Reason: Nausea and Vomiting Last Admin: 05/04/25 17:46 Dose: 4 mg Documented By: LUCILA Quetiapine Fumarate (Quetiapine Fumarate 50 Mg Tablet) 50 mg PO BEDTIME [facility] Last Admin: 05/06/25 20:31 Dose: 50 mg Documented By: ROSY Sodium Chloride (0.9 % Sodium Chloride Flush 3 Ml Syringe) 3 ml IVFLUSH QSHIFT [facility] Last Admin: 05/07/25 10:23 Dose: 3 ml Documented By: JARRETT Labs 05/07/25 11:08 05/06/25 06:19 Labs: Laboratory Results - last 24 hr 05/06/25 05/06/25 05/07/25 15:49 19:53 09:49 MCV MCH MCHC RDW Plt Count MPV Absolute Nucleated RBC Nucleated RBC % (auto) POC Glucose 112 127 H 103 05/07/25 05/07/25 11:08 11:22 MCV 89.2 MCH 29.3 MCHC 32.9 RDW 14.0 Plt Count 155 L MPV 9.8 Absolute Nucleated RBC 0.000 Nucleated RBC % (auto) 0.0 POC Glucose 115 Microbiology Microbiology Results: Microbiology 05/02/25 13:41 Gram Stain - Final Pleura Routine Culture - Final No growth after 2 days Anaerobic Culture - Final NO GROWTH AFTER 5 DAYS 05/02/25 00:46 Blood Culture - Final Blood - Venous No growth after 5 days. 05/02/25 00:36 Blood Culture - Final Blood - Venous No growth after 5 days. Assessment and Plan (1) CKD (chronic kidney disease) stage 5, GFR less than 15 ml/min: Status: Acute (2) Acute kidney injury superimposed on CKD: Status: Acute (3) Metabolic acidosis with normal anion gap and failure of bicarbonate regeneration: Status: Acute (4) Renal failure: Status: Acute Plan The patient is a 60-year-old female, new to this facility, with PMH of CVA w Left hemiparesis, Seizure disorder, smoking, CKD4, HTN, HLD, DMII, who presents with worsening shortness of breath and cough. JOE on CKD4-5 with metabolic acidosis, now progressed to ESRD permcath today 05/05, started dialysis, second time 05/06, 3rd time 05/07 Anemia of chronic disease will need IV Iron and likely IV iron transfuse for hgb < 7, hgb is 7.6 Large left sided pleural effusion Large, no clear signs of loculation Thoracentesis, 900 removed 05/02 Swelling in left arm and left leg, patient says has been like that for months US--no dvt Nicotine dependence NRT while inpatient Seizure disorder restart Depakote and Lamotrigine Type 2 DM with hypoglycemia, hold lanatus SSI Diabetic diet HTN,HLD Continue home medications : Labetalol and Hydralazine at lower doses Hold Statin DVT PPx Heparin bid The patient will need 2 overnight hospital stay for treatment of JOE and pleural effusion pending Thoracentesis and Nephrology recommendations Quality Stroke Does the patient have a stroke diagnosis?: No VTE Prior VTE?: No VTE Risk Level:: Medical - moderate - high VTE Device Contraindication: Treatment Not Indicated VTE Drug Contraindication: N/A - Med Ordered
[2025-05-07 15:14] VITALS: BP 135/71; PULSE 72; RESP 18; TEMP 36.2; O2SAT 93
[2025-05-07 16:11] LABS: Glucose, Whole Blood 149 mg/dL (60-115)
--- NOTE | 2025-05-07 16:23 | P.CDIM_ITS ---
PROVIDER RESPONSE TEXT: To clarify, the appropriate diagnosis supported by the clinical indicators: CKD, stage 4 QUERY TEXT: PHYSICIAN'S DOCUMENTATION REQUEST Date of Query: 05/03/2025 12:46 PM EST Patient Name: Kisha Bryant Admit Date: 05/02/2025 Dear Phuc Estes MD, A review of the medical record indicates additional documentation may be needed. Please review below and update the documentation accordingly. Clinical Indicators: patient has CKD stage 4-5 documented creatinine 3.9 eGFR 11.0 hold nephrotoxic meds JOE superimposed on CKD Please clarify which of the following accurately represents the patient's renal status: CKD, stage 4 CKD, stage 5 Other (explain) Clinically unable to determine (explain) Thank you, Cristina Ulloa RN Use of terms such as suspected, likely, concern for, or probable (associated with a specific diagnosis that is being evaluated, monitored, or treated as if it exists) are acceptable and can be coded in the inpatient setting, when documented at the time of discharge. Please use your independent medical judgment in providing your response. THIS QUERY IS PART OF THE PERMANENT MEDICAL RECORD
--- NOTE | 2025-05-07 17:42 | P.PNNP_ITS ---
Subjective Subjective Date of Service: 05/09/25 Interval history: Now ESRD, started dialysis for 2 hours and 3 hours , tolerating well Physical Exam 2 Exam: Exam: cvs: s1s2 Rs; cta Abd; soft Vital Signs: Vital Signs: Last Vital Signs Temp 97.2 F 05/07/25 15:14 Pulse 72 05/07/25 15:14 Resp 18 05/07/25 15:14 BP 135/71 05/07/25 15:14 Pulse Ox 93 05/07/25 15:14 O2 Del Method Room Air 05/07/25 15:14 O2 Flow Rate 2 05/07/25 10:51 BMI result Body Mass Index 24.2 Objective Data Labs 05/08/25 13:11 05/06/25 06:19 Labs: Laboratory Results - last 24 hr 05/06/25 05/07/25 05/07/25 19:53 09:49 11:08 WBC 7.0 RBC 2.59 L Hgb 7.6 L Hct 23.1 L MCV 89.2 MCH 29.3 MCHC 32.9 RDW 14.0 Plt Count 155 L MPV 9.8 Absolute Nucleated RBC 0.000 Nucleated RBC % (auto) 0.0 POC Glucose 127 H 103 05/07/25 05/07/25 11:22 16:06 WBC RBC Hgb Hct MCV MCH MCHC RDW Plt Count MPV Absolute Nucleated RBC Nucleated RBC % (auto) POC Glucose 115 149 H Microbiology Microbiology Results: Microbiology 05/02/25 13:41 Pleura Gram Stain - Final 05/02/25 13:41 Pleura Routine Culture - Final No growth after 2 days 05/02/25 13:41 Pleura Anaerobic Culture - Final NO GROWTH AFTER 5 DAYS 05/02/25 00:46 Blood - Venous Blood Culture - Final No growth after 5 days. 05/02/25 00:36 Blood - Venous Blood Culture - Final No growth after 5 days. Procedures Date of Service Date of Service: 05/09/25 Assessment & Plan Assessment and plan (1) CKD (chronic kidney disease) stage 5, GFR less than 15 ml/min: Status: Acute Plan 1. CKD 5 c/w prog DN/HTN renal dis 2. Hypervol: needs to incr diuretics, and now will pull fluid w HD today 3. HTN: subotimal; incr BP meds and diuresis 4. Nephrogenic anemia: r/o Fe def and look to start EPO 5. MBD of CKD: tray PTH/vit D PLNA: starti HD as she seeems to be failing med Tx: epo as ordered getting oupt HD spot ( [facility] HDU [id number]) and will ask CM to help coordiante WIll follow w team Time Spent With Patient Time: Total time managing care of this patient today ____ minutes. Progress Note: Quality Stroke Does the patient have a stroke diagnosis?: No
[2025-05-07 18:57] VITALS: PULSE 72; RESP 18; O2SAT 94
[2025-05-07 19:40] VITALS: BP 168/69; PULSE 80; RESP 18; TEMP 36.4; O2SAT 93
[2025-05-07 20:29] LABS: Glucose, Whole Blood 180 mg/dL (60-115)
[2025-05-08] VITALS (10 sets, daily range): BP systolic 135–153; BP diastolic 63–74; PULSE 63–79; RESP 16–18; TEMP 36.3–36.9; O2SAT 93–97
[2025-05-08 07:03] LABS: Glucose, Whole Blood 109 mg/dL (60-115)
[2025-05-08] MEDS: Fluticasone/Vilanterol 200/25 BLST.W.DEV 1 PUFF INHALE (07:40)
[2025-05-08] MEDS: NIFEdipine ER 60 MG TAB.ER.24 PO (07:54)
[2025-05-08] MEDS: Ferrous Sulfate 324 MG TABLET.DR PO (07:54)
[2025-05-08] MEDS: Nicotine 14 MG PATCH.TD24 TRANSDERMA (07:55)
[2025-05-08] MEDS: 0.9 % Sodium Chloride Flush 3 ML SYRINGE IVFLUSH ×3 (07:57→20:58)
--- NOTE | 2025-05-08 09:05 | HO.PM.IMPN ---
Subjective Subjective Date of Service: 05/08/25 Interval History: Tolerating dialysis thus far, has been dialysed last 3 days with no issues Physical Exam Vital Signs: Vital Signs: Last Vital Signs Temp 98.1 F 05/08/25 06:46 Pulse 73 05/08/25 07:43 Resp 16 05/08/25 07:43 BP 152/74 H 05/08/25 06:46 Pulse Ox 95 05/08/25 06:46 O2 Del Method Room Air 05/08/25 06:46 O2 Flow Rate 2 05/07/25 10:51 BMI result Body Mass Index 24.2 Const: Other: General: AO X 3, no acute distress Resp: CTA bilateral CVS: S1,S2,RRR GI: +BS, NT, no distention Skin: No rash Neuro: motor grossly intact Psych: appropriate affect Objective Data Active Medications Acetaminophen (Acetaminophen 325 Mg Tablet) 650 mg PO Q6H PRN PRN Reason: Pain, Mild 1-3,fever,headache Last Admin: 05/05/25 21:00 Dose: 650 mg Documented By: ROSY Albuterol/Ipratropium (Albuterol/Iprat 2.5/0.5mg 3 Ml Ampul.Neb) 3 ml INHALE RQ4H WHILE AWAKE PRN PRN Reason: Shortness of Breath/Wheezing Last Admin: 05/03/25 12:43 Dose: 3 ml Documented By: CHONG Amlodipine Besylate (Amlodipine Besylate 10 Mg Tablet) 10 mg PO DAILY [facility]; Protocol Last Admin: 05/08/25 07:54 Dose: 10 mg Documented By: JARRETT Atorvastatin Calcium (Atorvastatin Calcium 80 Mg Tablet) 80 mg PO BEDTIME [facility] Last Admin: 05/07/25 20:24 Dose: 80 mg Documented By: SHANAN Baclofen (Baclofen 10 Mg Tablet) 5 mg PO TID PRN PRN Reason: Muscle Spasm Benzocaine (Throat Lozenge, Medicated Lozenge) 1 lozenge MUCOUS MEM Q2H PRN PRN Reason: Sore Throat Last Admin: 05/03/25 20:28 Dose: 1 lozenge Documented By: SHASHI Budesonide (Budesonide 180 Mcg Aer.Pow.Ba) 2 puff INHALE RBID [facility] Last Admin: 05/08/25 07:40 Dose: 2 puff Documented By: GLENYS Bumetanide (Bumetanide 1 Mg Tablet) 1 mg PO BIDWM [facility]; Protocol Last Admin: 05/08/25 07:55 Dose: 1 mg Documented By: JARRETT Calcitriol (Calcitriol 0.25 Mcg Capsule) 0.25 mcg PO DAILY [facility] Last Admin: 05/08/25 07:54 Dose: 0.25 mcg Documented By: JARRETT Calcium Carbonate (Calcium Carbonate 750 Mg Tab.Chew) 750 mg PO Q4H PRN PRN Reason: Heartburn Clonidine (Clonidine 0.2 Mg Patch.Tdwk) 0.2 mg TRANSDERMA WE [facility]; Protocol Last Admin: 05/04/25 10:46 Dose: 0.2 mg Documented By: LUCILA Dextrose (Dextrose 50 % 25 Gm/50 Ml Syringe) 25 gm IVPUSH Q15M PRN; Protocol PRN Reason: per Hypoglycemia Standing Ord. Divalproex Sodium (Divalproex Sodium 500 Mg Tablet.) 500 mg PO BID [facility] Last Admin: 05/08/25 07:54 Dose: 500 mg Documented By: JARRETT Duloxetine HCl (Duloxetine Hcl 60 Mg Capsule.) 60 mg PO DAILY [facility] Last Admin: 05/08/25 07:54 Dose: 60 mg Documented By: JARRETT Ferrous Sulfate (Ferrous Sulfate 324 Mg Tablet.) 324 mg PO DAILY [facility] Last Admin: 05/08/25 07:54 Dose: 324 mg Documented By: JARRETT Fluticasone/Vilanterol (Fluticasone/Vilanterol 200/25 Blst.W.Dev) 1 puff INHALE RDAILY [facility] Last Admin: 05/08/25 07:40 Dose: 1 puff Documented By: GLENYS Glucose (Glucose Gel 15 Gm Gel..Gram.) 15 gm PO Q15M PRN; Protocol PRN Reason: per Hypoglycemia Standing Ord. Heparin Sodium (Porcine) (Heparin Sodium,Porcine 5,000 Unit/Ml Vial) 5,000 unit SUBCUT Q12H [facility] Last Admin: 05/08/25 07:53 Dose: 5,000 unit Documented By: JARRETT Hydralazine HCl (Hydralazine Hcl 25 Mg Tablet) 25 mg PO TID [facility]; Protocol Last Admin: 05/08/25 07:53 Dose: 25 mg Documented By: JARRETT Insulin Human Lispro (Insulin Lispro 100 Unit/Ml 3 Ml Vial) 0 unit SUBCUT QIDACHS [facility]; Protocol Last Admin: 05/08/25 07:09 Dose: Not Given Documented By: JARRETT Non-Admin Reason: No Insulin Coverage Labetalol HCl (Labetalol Hcl 100 Mg Tablet) 100 mg PO BID [facility]; Protocol Last Admin: 05/08/25 07:54 Dose: 100 mg Documented By: JARRETT Lamotrigine (Lamotrigine 25 Mg Tablet) 25 mg PO BID [facility] Last Admin: 05/08/25 07:54 Dose: 25 mg Documented By: JARRETT Magnesium Hydroxide (Milk Of Magnesia 30 Ml Oral.Susp) 30 ml PO DAILY PRN PRN Reason: Constipation Last Admin: 05/05/25 17:11 Dose: 30 ml Documented By: CHONG Melatonin (Melatonin 3 Mg Tablet) 6 mg PO BEDTIME PRN PRN Reason: Insomnia Nicotine (Nicotine 14 Mg Patch.Td24) 14 mg TRANSDERMA DAILY [facility] Last Admin: 05/08/25 07:55 Dose: 14 mg Documented By: JARRETT Nicotine (Nicotine 14 Mg Patch.Td24) 14 mg TRANSDERMA DAILY PRN PRN Reason: Nicotine Cravings Nifedipine (Nifedipine Er 60 Mg Tab.Er.24) 60 mg PO DAILY [facility]; Protocol Last Admin: 05/08/25 07:54 Dose: 60 mg Documented By: JARRETT Nitroglycerin (Nitroglycerin 0.4 Mg Tab.Subl) 0.4 mg SUBLINGUAL Q5M PRN PRN Reason: Chest Pain Omeprazole (Omeprazole 20 Mg Capsule.Dr) 20 mg PO DAILY@0630 [facility] Last Admin: 05/08/25 06:08 Dose: 20 mg Documented By: SHANNA Ondansetron HCl (Ondansetron Hcl 4 Mg/2 Ml Vial) 4 mg IVPUSH Q8H PRN PRN Reason: Nausea and Vomiting Last Admin: 05/04/25 17:46 Dose: 4 mg Documented By: LUCILA Quetiapine Fumarate (Quetiapine Fumarate 50 Mg Tablet) 50 mg PO BEDTIME [facility] Last Admin: 05/07/25 20:25 Dose: 50 mg Documented By: SHANNA Sodium Chloride (0.9 % Sodium Chloride Flush 3 Ml Syringe) 3 ml IVFLUSH QSHIFT [facility] Last Admin: 05/08/25 07:57 Dose: 3 ml Documented By: JARRETT Labs 05/07/25 11:08 05/06/25 06:19 Labs: Laboratory Results - last 24 hr 05/07/25 05/07/25 05/07/25 09:49 11:08 11:22 MCV 89.2 MCH 29.3 MCHC 32.9 RDW 14.0 Plt Count 155 L MPV 9.8 Absolute Nucleated RBC 0.000 Nucleated RBC % (auto) 0.0 POC Glucose 103 115 05/07/25 05/07/25 05/08/25 16:06 20:20 06:57 MCV MCH MCHC RDW Plt Count MPV Absolute Nucleated RBC Nucleated RBC % (auto) POC Glucose 149 H 180 H 109 Microbiology Microbiology Results: Microbiology 05/02/25 13:41 Gram Stain - Final Pleura Routine Culture - Final No growth after 2 days Anaerobic Culture - Final NO GROWTH AFTER 5 DAYS Assessment and Plan (1) CKD (chronic kidney disease) stage 5, GFR less than 15 ml/min: Status: Acute (2) Acute kidney injury superimposed on CKD: Status: Acute (3) Metabolic acidosis with normal anion gap and failure of bicarbonate regeneration: Status: Acute (4) Renal failure: Status: Acute Plan The patient is a 60-year-old female, new to this facility, with PMH of CVA w Left hemiparesis, Seizure disorder, smoking, CKD4, HTN, HLD, DMII, who presents with worsening shortness of breath and cough. JOE on CKD4-5 with metabolic acidosis, now progressed to ESRD permcath today 05/05, started dialysis, second time 05/06, 3rd time 05/07 Nephrology making arrangment for outpatient dialysis spot Anemia of chronic disease will need IV Iron and likely IV iron transfuse for hgb < 7, hgb is 7.6 Large left sided pleural effusion Large, no clear signs of loculation Thoracentesis, 900 removed 05/02 Swelling in left arm and left leg, patient says has been like that for months US--no dvt Nicotine dependence NRT while inpatient Seizure disorder restart Depakote and Lamotrigine Type 2 DM with hypoglycemia, hold lanatus SSI Diabetic diet HTN,HLD Continue home medications : Labetalol and Hydralazine at lower doses Hold Statin DVT PPx Heparin bid The patient will need 2 overnight hospital stay for treatment of JOE and pleural effusion pending Thoracentesis and Nephrology recommendations Quality Stroke Does the patient have a stroke diagnosis?: No VTE Prior VTE?: No VTE Risk Level:: Medical - moderate - high VTE Device Contraindication: Treatment Not Indicated VTE Drug Contraindication: N/A - Med Ordered
[2025-05-08 11:13] LABS: Glucose, Whole Blood 145 mg/dL (60-115)
[2025-05-08 13:17] LABS: Hematocrit 24.7 % (37.0-47.0); Hemoglobin 8.2 g/dl (12.0-16.0); Mean Corpuscular HGB Conc 33.2 g/dl (31.0-35.0); Mean Corpuscular Hemoglobin 30.1 pg (27.0-33.0); Mean Corpuscular Volume 90.8 fL (80.0-98.0); NRBC Abs Auto 0.000 X10*3/uL (0.0-0.012); NRBC Pct Auto 0.0 /100WBC (0.0-0.2); Platelet Count 165 X10*3/uL (160-400); Red Blood Count 2.72 X10*6/uL (4.20-5.50); White Blood Count 6.6 X10*3/uL (4.8-10.8)
[2025-05-08 15:57] LABS: Glucose, Whole Blood 178 mg/dL (60-115)
[2025-05-08 20:05] LABS: Glucose, Whole Blood 153 mg/dL (60-115)
[2025-05-08] MEDS: Albuterol/Iprat 2.5/0.5MG 3 ML AMPUL.NEB INHALE (21:12)
[2025-05-09] VITALS (9 sets, daily range): BP systolic 131–190; BP diastolic 61–86; PULSE 68–90; RESP 16–18; TEMP 36.2–37.3; O2SAT 94–97
[2025-05-09 07:29] LABS: Glucose, Whole Blood 132 mg/dL (60-115)
[2025-05-09] MEDS: diazePAM 10 MG/2 ML CARTRIDGE 2.5 MG IVPUSH (07:55)
[2025-05-09 08:22] LABS: Hematocrit 26.8 % (37.0-47.0); Hemoglobin 8.8 g/dl (12.0-16.0); Mean Corpuscular HGB Conc 32.8 g/dl (31.0-35.0); Mean Corpuscular Hemoglobin 29.4 pg (27.0-33.0); Mean Corpuscular Volume 89.6 fL (80.0-98.0); NRBC Abs Auto 0.000 X10*3/uL (0.0-0.012); NRBC Pct Auto 0.0 /100WBC (0.0-0.2); Platelet Count 197 X10*3/uL (160-400); Red Blood Count 2.99 X10*6/uL (4.20-5.50); White Blood Count 6.9 X10*3/uL (4.8-10.8)
[2025-05-09 08:37] LABS: Anion Gap 18 (12-20); Blood Urea Nitrogen 21 mg/dL (9-16); Calcium 7.9 mg/dL (8.4-10.2); Carbon Dioxide 24 mmol/L (22-29); Chloride 100 mmol/L (96-108); Creatinine Clr Calc Pharmacy 19.8; Estimated Glomerular Filt Rate 15; Magnesium 2.0 mg/dL (1.6-2.6); Potassium 3.5 mmol/L (3.3-5.1); Sodium 138 mmol/L (135-145)
--- NOTE | 2025-05-09 08:54 | PC.NURSE ---
Rapid response initiated by dialysis nurse. Pt having seizure activity. 0755 BP: 139/100, HR 99, 92% on room air, RR 16. MD at bedside, 2.5mg IV valium administered. 0803 BP:190/80, HR 90, 02 96% on room air. Pt becoming more responsive, responding to tactile and verbal stimuli. Transferred to [facility], continuous [address]
--- NOTE | 2025-05-09 09:21 | HO.PM.IMPN ---
Subjective Subjective Date of Service: 05/09/25 Interval History: Had a seizure while waiting for dialysis to start ad give IV valium 2.5 mg She is now more awake, alert and talking..Valpropic acid level is within normam Physical Exam Vital Signs: Vital Signs: Last Vital Signs Temp 98.4 F 05/09/25 07:55 Pulse 90 05/09/25 07:55 Resp 16 05/09/25 07:55 BP 190/80 H 05/09/25 07:55 Pulse Ox 96 05/09/25 07:55 O2 Del Method Room Air 05/09/25 07:55 O2 Flow Rate 2 05/07/25 10:51 BMI result Body Mass Index 24.2 Const: Other: General: AO X 2, no acute distress Resp: CTA bilateral CVS: S1,S2,RRR GI: +BS, NT, no distention Skin: No rash Neuro: motor grossly intact Psych: appropriate affect Objective Data Active Medications Acetaminophen (Acetaminophen 325 Mg Tablet) 650 mg PO Q6H PRN PRN Reason: Pain, Mild 1-3,fever,headache Last Admin: 05/05/25 21:00 Dose: 650 mg Documented By: ROSY Albuterol/Ipratropium (Albuterol/Iprat 2.5/0.5mg 3 Ml Ampul.Neb) 3 ml INHALE RQ4H WHILE AWAKE PRN PRN Reason: Shortness of Breath/Wheezing Last Admin: 05/08/25 21:12 Dose: 3 ml Documented By: MUNIR Amlodipine Besylate (Amlodipine Besylate 10 Mg Tablet) 10 mg PO DAILY [facility]; Protocol Last Admin: 05/08/25 07:54 Dose: 10 mg Documented By: JARRETT Atorvastatin Calcium (Atorvastatin Calcium 80 Mg Tablet) 80 mg PO BEDTIME [facility] Last Admin: 05/08/25 20:57 Dose: 80 mg Documented By: SHANNA Baclofen (Baclofen 10 Mg Tablet) 5 mg PO TID PRN PRN Reason: Muscle Spasm Benzocaine (Throat Lozenge, Medicated Lozenge) 1 lozenge MUCOUS MEM Q2H PRN PRN Reason: Sore Throat Last Admin: 05/03/25 20:28 Dose: 1 lozenge Documented By: SHASHI Budesonide (Budesonide 180 Mcg Aer.Pow.Ba) 2 puff INHALE RBID [facility] Last Admin: 05/09/25 07:58 Dose: Not Given Documented By: RENATO Non-Admin Reason: Patient Condition Contraindication Bumetanide (Bumetanide 1 Mg Tablet) 1 mg PO BIDWM [facility]; Protocol Last Admin: 05/08/25 16:25 Dose: 1 mg Documented By: JARRETT Calcitriol (Calcitriol 0.25 Mcg Capsule) 0.25 mcg PO DAILY [facility] Last Admin: 05/08/25 07:54 Dose: 0.25 mcg Documented By: JARRETT Calcium Carbonate (Calcium Carbonate 750 Mg Tab.Chew) 750 mg PO Q4H PRN PRN Reason: Heartburn Clonidine (Clonidine 0.2 Mg Patch.Tdwk) 0.2 mg TRANSDERMA WE [facility]; Protocol Last Admin: 05/04/25 10:46 Dose: 0.2 mg Documented By: LUCILA Dextrose (Dextrose 50 % 25 Gm/50 Ml Syringe) 25 gm IVPUSH Q15M PRN; Protocol PRN Reason: per Hypoglycemia Standing Ord. Divalproex Sodium (Divalproex Sodium 500 Mg Tablet.) 500 mg PO BID [facility] Last Admin: 05/08/25 20:57 Dose: 500 mg Documented By: SHANNA Duloxetine HCl (Duloxetine Hcl 60 Mg Capsule.) 60 mg PO DAILY [facility] Last Admin: 05/08/25 07:54 Dose: 60 mg Documented By: JARRETT Ferrous Sulfate (Ferrous Sulfate 324 Mg Tablet.) 324 mg PO DAILY [facility] Last Admin: 05/08/25 07:54 Dose: 324 mg Documented By: JARRETT Fluticasone/Vilanterol (Fluticasone/Vilanterol 200/25 Blst.W.Dev) 1 puff INHALE RDAILY [facility] Last Admin: 05/09/25 07:58 Dose: Not Given Documented By: RENATO Non-Admin Reason: Patient Condition Contraindication Glucose (Glucose Gel 15 Gm Gel..Gram.) 15 gm PO Q15M PRN; Protocol PRN Reason: per Hypoglycemia Standing Ord. Heparin Sodium (Porcine) (Heparin Sodium,Porcine 5,000 Unit/Ml Vial) 5,000 unit SUBCUT Q12H [facility] Last Admin: 05/08/25 21:02 Dose: 5,000 unit Documented By: SHANNA Hydralazine HCl (Hydralazine Hcl 25 Mg Tablet) 25 mg PO TID [facility]; Protocol Last Admin: 05/08/25 20:57 Dose: 25 mg Documented By: SHANNA Insulin Human Lispro (Insulin Lispro 100 Unit/Ml 3 Ml Vial) 0 unit SUBCUT QIDACHS [facility]; Protocol Last Admin: 05/09/25 07:30 Dose: Not Given Documented By: LUIS A Non-Admin Reason: No Insulin Coverage Labetalol HCl (Labetalol Hcl 100 Mg Tablet) 100 mg PO BID [facility]; Protocol Last Admin: 05/08/25 20:57 Dose: 100 mg Documented By: SHANNA Lamotrigine (Lamotrigine 25 Mg Tablet) 25 mg PO BID [facility] Last Admin: 05/08/25 20:57 Dose: 25 mg Documented By: SHANNA Magnesium Hydroxide (Milk Of Magnesia 30 Ml Oral.Susp) 30 ml PO DAILY PRN PRN Reason: Constipation Last Admin: 05/05/25 17:11 Dose: 30 ml Documented By: CHONG Melatonin (Melatonin 3 Mg Tablet) 6 mg PO BEDTIME PRN PRN Reason: Insomnia Nicotine (Nicotine 14 Mg Patch.Td24) 14 mg TRANSDERMA DAILY [facility] Last Admin: 05/08/25 07:55 Dose: 14 mg Documented By: JARRETT Nicotine (Nicotine 14 Mg Patch.Td24) 14 mg TRANSDERMA DAILY PRN PRN Reason: Nicotine Cravings Nifedipine (Nifedipine Er 60 Mg Tab.Er.24) 60 mg PO DAILY [facility]; Protocol Last Admin: 05/08/25 07:54 Dose: 60 mg Documented By: JARRETT Nitroglycerin (Nitroglycerin 0.4 Mg Tab.Subl) 0.4 mg SUBLINGUAL Q5M PRN PRN Reason: Chest Pain Omeprazole (Omeprazole 20 Mg Capsule.Dr) 20 mg PO DAILY@0630 [facility] Last Admin: 05/09/25 06:05 Dose: 20 mg Documented By: SHANNA Ondansetron HCl (Ondansetron Hcl 4 Mg/2 Ml Vial) 4 mg IVPUSH Q8H PRN PRN Reason: Nausea and Vomiting Last Admin: 05/04/25 17:46 Dose: 4 mg Documented By: LUCILA Quetiapine Fumarate (Quetiapine Fumarate 50 Mg Tablet) 50 mg PO BEDTIME [facility] Last Admin: 05/08/25 20:57 Dose: 50 mg Documented By: SHANNA Sodium Chloride (0.9 % Sodium Chloride Flush 3 Ml Syringe) 3 ml IVFLUSH QSHIFT [facility] Last Admin: 05/08/25 20:58 Dose: 3 ml Documented By: SHANNA Labs 05/09/25 08:11 05/09/25 08:11 Labs: Laboratory Results - last 24 hr 05/08/25 05/08/25 05/08/25 11:09 13:11 15:53 MCV 90.8 MCH 30.1 MCHC 33.2 RDW 14.1 Plt Count 165 MPV 9.3 L Absolute Nucleated RBC 0.000 Nucleated RBC % (auto) 0.0 Anion Gap Estim Creat Clear Calc Estimated GFR POC Glucose 145 H 178 H Random Glucose Calcium Magnesium Valproic Acid 05/08/25 05/09/25 05/09/25 19:53 07:26 08:11 MCV 89.6 MCH 29.4 MCHC 32.8 RDW 13.9 Plt Count 197 MPV 9.5 Absolute Nucleated RBC 0.000 Nucleated RBC % (auto) 0.0 Anion Gap 18 Estim Creat Clear Calc 19.8 Estimated GFR 15 POC Glucose 153 H 132 H Random Glucose 157 H Calcium 7.9 L D Magnesium 2.0 Valproic Acid 55.2 Microbiology Microbiology Results: Microbiology 05/02/25 13:41 Gram Stain - Final Pleura Routine Culture - Final No growth after 2 days Anaerobic Culture - Final NO GROWTH AFTER 5 DAYS Assessment and Plan (1) CKD (chronic kidney disease) stage 5, GFR less than 15 ml/min: Status: Acute (2) Acute kidney injury superimposed on CKD: Status: Acute (3) Metabolic acidosis with normal anion gap and failure of bicarbonate regeneration: Status: Acute (4) Renal failure: Status: Acute Plan The patient is a 60-year-old female, new to this facility, with PMH of CVA w Left hemiparesis, Seizure disorder, smoking, CKD4, HTN, HLD, DMII, who presents with worsening shortness of breath and cough. JOE on CKD4-5 with metabolic acidosis, now progressed to ESRD permcath inserted on 05/05, started dialysis 05/05, second time 05/06, 3rd time 05/07 Nephrology making arrangment for outpatient dialysis spot Anemia of chronic disease will need IV Iron and likely IV iron transfuse for hgb < 7, hgb is 8.8 now Large left sided pleural effusion Large, no clear signs of loculation Thoracentesis, 900 removed 05/02 Swelling in left arm and left leg, patient says has been like that for months US--no dvt Nicotine dependence NRT while inpatient Seizure disorder , had breakthrough seizure this morning (05/09) continue Depakote and Lamotrigine, Depakote level within range Neuro consult to see if needs additional med EEG Type 2 DM with hypoglycemia hold lanatus SSI Diabetic diet HTN Continue home medications : Labetalol and Hydralazine HLD Statin DVT PPx Heparin bid The patient will need 2 overnight hospital stay for treatment of JOE and pleural effusion pending Thoracentesis and Nephrology recommendations Quality Stroke Does the patient have a stroke diagnosis?: No VTE Prior VTE?: No VTE Risk Level:: Medical - moderate - high VTE Device Contraindication: Treatment Not Indicated VTE Drug Contraindication: N/A - Med Ordered
[2025-05-09 09:48] LABS: Alanine Aminotransferase 11 U/L (0-31); Albumin Level 2.9 g/dL (3.5-5.0); Alkaline Phosphatase 105 U/L (39-117); Aspartate Amino Transferase 34 U/L (5-31); Total Protein 5.4 g/dL (6.5-8.0)
--- NOTE | 2025-05-09 10:19 | MHC.CM.PN ---
Per [facility]OUNDS, Patient is not yet medically cleared for dc (Seizure this morning, new HD, will need pt Eval to assist with disposition/Patient and family want STR).
[2025-05-09] MEDS: Nicotine 14 MG PATCH.TD24 TRANSDERMA (10:27)
[2025-05-09] MEDS: Ferrous Sulfate 324 MG TABLET.DR PO (10:27)
[2025-05-09] MEDS: 0.9 % Sodium Chloride Flush 3 ML SYRINGE IVFLUSH ×3 (10:27→21:25)
[2025-05-09] MEDS: NIFEdipine ER 60 MG TAB.ER.24 PO (10:33)
[2025-05-09 11:17] LABS: Glucose, Whole Blood 164 mg/dL (60-115)
[2025-05-09 16:18] LABS: Glucose, Whole Blood 127 mg/dL (60-115)
[2025-05-09 20:43] LABS: Glucose, Whole Blood 169 mg/dL (60-115)
[2025-05-10] VITALS (9 sets, daily range): BP systolic 134–167; BP diastolic 62–80; PULSE 68–89; RESP 16–20; TEMP 36.2–37; O2SAT 93–98
[2025-05-10 07:29] LABS: Glucose, Whole Blood 121 mg/dL (60-115)
[2025-05-10] MEDS: 0.9 % Sodium Chloride Flush 3 ML SYRINGE IVFLUSH ×3 (09:09→21:03)
--- NOTE | 2025-05-10 10:13 | PM.NEUROCN ---
History of Present Illness Data of Consult Service Date: 05/10/25 Primary Care Provider: Candice Rodriguez MD [facility] Reason for consult: Break through Seizure This is a 60-year-old female, with PMH of CVA w Left hemiparesis, Seizure disorder, smoking, CKD4, HTN, HLD, DMII, who presents with worsening shortness of breath and cough. JOE on CKD4-5 with metabolic acidosis, now progressed to ESRD permcath inserted on 05/05, started dialysis 05/05, second time 05/06, 3rd time 05/07. On she had a break through seizure with therapeutic Valprote levels. Has Anemia of chronic disease hgb < 7, hgb is 8.8 now. Large left sided pleural effusion. Thoracentesis, 900ml removed 05/02 [facility] Past Medical History Medical History (Updated 05/10/25 @ 13:28 by Marylu Ji CNP) Smoking greater than 40 pack years Seizure disorder Social History Social History Housing: House Do you presently have visiting nurse or other home services: Yes Patient Tobacco Use Status: Current everyday Tobacco user Tobacco use type: Cigarette service: No Meds Allergies Allergy/AdvReac Type Severity Reaction Status Date / Time No Known Allergies Allergy Unverified 02/03/20 16:13 amy inhibitors Allergy Unknown cough Uncoded 05/01/25 23:51 Active Medications: Current Medications Acetaminophen (Acetaminophen 325 Mg Tablet) 650 mg PO Q6H PRN PRN Reason: Pain, Mild 1-3,fever,headache Last Admin: 05/05/25 21:00 Dose: 650 mg Albuterol/Ipratropium (Albuterol/Iprat 2.5/0.5mg 3 Ml Ampul.Neb) 3 ml INHALE RQ4H WHILE AWAKE PRN PRN Reason: Shortness of Breath/Wheezing Last Admin: 05/08/25 21:12 Dose: 3 ml Amlodipine Besylate (Amlodipine Besylate 10 Mg Tablet) 10 mg PO DAILY JAIR; Protocol Last Admin: 05/09/25 10:27 Dose: 10 mg Atorvastatin Calcium (Atorvastatin Calcium 80 Mg Tablet) 80 mg PO BEDTIME JAIR Last Admin: 05/09/25 21:25 Dose: 80 mg Baclofen (Baclofen 10 Mg Tablet) 5 mg PO TID PRN PRN Reason: Muscle Spasm Benzocaine (Throat Lozenge, Medicated Lozenge) 1 lozenge MUCOUS MEM Q2H PRN PRN Reason: Sore Throat Last Admin: 05/03/25 20:28 Dose: 1 lozenge Budesonide (Budesonide 180 Mcg Aer.Pow.Ba) 2 puff INHALE RBID [facility] Last Admin: 05/10/25 08:15 Dose: 2 puff Bumetanide (Bumetanide 1 Mg Tablet) 1 mg PO BIDWM [facility]; Protocol Last Admin: 05/09/25 17:56 Dose: 1 mg Calcitriol (Calcitriol 0.25 Mcg Capsule) 0.25 mcg PO DAILY [facility] Last Admin: 05/09/25 10:33 Dose: 0.25 mcg Calcium Carbonate (Calcium Carbonate 750 Mg Tab.Chew) 750 mg PO Q4H PRN PRN Reason: Heartburn Clonidine (Clonidine 0.2 Mg Patch.Tdwk) 0.2 mg TRANSDERMA WE [facility]; Protocol Last Admin: 05/04/25 10:46 Dose: 0.2 mg Dextrose (Dextrose 50 % 25 Gm/50 Ml Syringe) 25 gm IVPUSH Q15M PRN; Protocol PRN Reason: per Hypoglycemia Standing Ord. Divalproex Sodium (Divalproex Sodium 500 Mg Tablet.) 500 mg PO BID [facility] Last Admin: 05/09/25 21:24 Dose: 500 mg Duloxetine HCl (Duloxetine Hcl 60 Mg Capsule.) 60 mg PO DAILY [facility] Last Admin: 05/09/25 10:27 Dose: 60 mg Ferrous Sulfate (Ferrous Sulfate 324 Mg Tablet.) 324 mg PO DAILY [facility] Last Admin: 05/09/25 10:27 Dose: 324 mg Glucose (Glucose Gel 15 Gm Gel..Gram.) 15 gm PO Q15M PRN; Protocol PRN Reason: per Hypoglycemia Standing Ord. Heparin Sodium (Porcine) (Heparin Sodium,Porcine 5,000 Unit/Ml Vial) 5,000 unit SUBCUT Q12H [facility] Last Admin: 05/09/25 21:25 Dose: 5,000 unit Hydralazine HCl (Hydralazine Hcl 25 Mg Tablet) 25 mg PO TID [facility]; Protocol Last Admin: 05/09/25 21:24 Dose: 25 mg Insulin Human Lispro (Insulin Lispro 100 Unit/Ml 3 Ml Vial) 0 unit SUBCUT QIDACHS [facility]; Protocol Last Admin: 05/10/25 07:54 Dose: Not Given Labetalol HCl (Labetalol Hcl 100 Mg Tablet) 100 mg PO BID [facility]; Protocol Last Admin: 05/09/25 21:24 Dose: 100 mg Lamotrigine (Lamotrigine 25 Mg Tablet) 25 mg PO BID [facility] Last Admin: 05/09/25 21:24 Dose: 25 mg Magnesium Hydroxide (Milk Of Magnesia 30 Ml Oral.Susp) 30 ml PO DAILY PRN PRN Reason: Constipation Last Admin: 05/05/25 17:11 Dose: 30 ml Melatonin (Melatonin 3 Mg Tablet) 6 mg PO BEDTIME PRN PRN Reason: Insomnia Nicotine (Nicotine 14 Mg Patch.Td24) 14 mg TRANSDERMA DAILY [facility] Last Admin: 05/09/25 10:27 Dose: 14 mg Nicotine (Nicotine 14 Mg Patch.Td24) 14 mg TRANSDERMA DAILY PRN PRN Reason: Nicotine Cravings Nifedipine (Nifedipine Er 60 Mg Tab.Er.24) 60 mg PO DAILY [facility]; Protocol Last Admin: 05/09/25 10:33 Dose: 60 mg Nitroglycerin (Nitroglycerin 0.4 Mg Tab.Subl) 0.4 mg SUBLINGUAL Q5M PRN PRN Reason: Chest Pain Omeprazole (Omeprazole 20 Mg Capsule.Dr) 20 mg PO DAILY@0630 [facility] Last Admin: 05/10/25 05:42 Dose: 20 mg Ondansetron HCl (Ondansetron Hcl 4 Mg/2 Ml Vial) 4 mg IVPUSH Q8H PRN PRN Reason: Nausea and Vomiting Last Admin: 05/04/25 17:46 Dose: 4 mg Quetiapine Fumarate (Quetiapine Fumarate 50 Mg Tablet) 50 mg PO BEDTIME [facility] Last Admin: 05/09/25 21:25 Dose: 50 mg Sodium Chloride (0.9 % Sodium Chloride Flush 3 Ml Syringe) [facility] Last Admin: 05/10/25 09:09 Dose: 3 ml Home Medications ?Medication ?Instructions ?Recorded ?Confirmed ?Last Taken ?Type acetaminophen 500 mg tablet 500 mg PO Q6H PRN Pain 05/02/25 05/02/25 Unknown History amlodipine 10 mg tablet 10 mg PO DAILY 05/02/25 05/02/25 Unknown History atorvastatin 80 mg tablet 80 mg PO BEDTIME cholesterol 05/02/25 05/02/25 05/01/25 History baclofen 10 mg tablet 5 mg PO TID PRN Muscle Spasm 05/02/25 05/02/25 Unknown History budesonide-formoterol HFA 160 1 - 2 puff inhalation Q4-6H PRN 05/02/25 05/02/25 Unknown History mcg-4.5 mcg/actuation aerosol dyspnea inhaler (Symbicort) bumetanide 1 mg tablet 1 mg PO BID 05/02/25 05/02/25 05/01/25 History calcitriol 0.25 mcg capsule 0.25 mcg PO DAILY 05/02/25 05/02/25 05/01/25 History clonidine 0.2 mg/24 hr weekly 0.2 mg topical WE 05/02/25 05/02/25 04/27/25 History transdermal patch divalproex 500 mg tablet,delayed 500 mg PO BID 05/02/25 05/02/25 05/01/25 History release duloxetine 60 mg capsule,delayed 60 mg PO DAILY 05/02/25 05/02/25 05/01/25 History release ferrous sulfate 325 mg (65 mg 325 mg PO DAILY 05/02/25 05/02/25 05/01/25 History iron) tablet hydralazine 50 mg tablet 50 mg PO TID 05/02/25 05/02/25 05/01/25 History insulin glargine 100 unit/mL (3 24 unit subcut BEDTIME 05/02/25 05/02/25 05/01/25 History mL) subcutaneous pen (Lantus Solostar U-100 Insulin) insulin lispro 100 unit/mL See Protocol subcut TIDAC 05/02/25 05/02/25 05/01/25 History subcutaneous pen labetalol 100 mg tablet 100 mg PO TID blood pressure 05/02/25 05/02/25 05/01/25 History lamotrigine 25 mg tablet 25 mg PO BID 05/02/25 05/02/25 05/01/25 History nicotine 14 mg/24 hr daily 1 patch transdermal DAILY PRN 05/02/25 05/02/25 Unknown History transdermal patch Nicotine Cravings nifedipine 60 mg tablet,extended 60 mg PO DAILY blood pressure 05/02/25 05/02/25 05/01/25 History release 24 hr nitroglycerin 0.3 mg sublingual 0.3 mg sublingual Q5M PRN Chest 05/02/25 05/02/25 Unknown History tablet Pain pantoprazole 40 mg tablet,delayed 40 mg PO DAILY@0630 05/02/25 05/02/25 05/01/25 History release quetiapine 50 mg tablet 50 mg PO BEDTIME 05/02/25 05/02/25 05/01/25 History Physical Exam Vital Signs: Vital Signs: Last Vital Signs Temp 97.4 F 05/10/25 07:05 Pulse 75 05/10/25 08:16 Resp 16 05/10/25 08:16 BP 149/73 H 05/10/25 07:05 Pulse Ox 98 05/10/25 07:05 O2 Del Method Room Air 05/10/25 07:05 O2 Flow Rate 2 05/07/25 10:51 BMI result Body Mass Index 24.2 Results Labs 05/09/25 08:11 05/09/25 08:11 Microbiology Microbiology Results: Microbiology 05/02/25 13:41 Pleura Gram Stain - Final 05/02/25 13:41 Pleura Routine Culture - Final No growth after 2 days 05/02/25 13:41 Pleura Anaerobic Culture - Final NO GROWTH AFTER 5 DAYS 05/02/25 00:46 Blood - Venous Blood Culture - Final No growth after 5 days. 05/02/25 00:36 Blood - Venous Blood Culture - Final No growth after 5 days. Assessment and Plan (1) Seizure disorder: Status: Acute (2) Breakthrough seizure: Status: Acute Increase lamotrigine to 50 mg b.i.d.. Continue current dose of Depakote Procedures Date of Service Date of Service: 05/10/25
[2025-05-10] MEDS: NIFEdipine ER 60 MG TAB.ER.24 PO (11:16)
[2025-05-10] MEDS: Ferrous Sulfate 324 MG TABLET.DR PO (11:16)
[2025-05-10] MEDS: Nicotine 14 MG PATCH.TD24 TRANSDERMA (11:18)
[2025-05-10 12:14] LABS: Glucose, Whole Blood 146 mg/dL (60-115)
--- NOTE | 2025-05-10 13:04 | HO.PM.IMPN ---
Subjective Subjective Date of Service: 05/10/25 Interval History: Received hemodialysis today, completed without issue The patient does report suffering with diarrhea multiple times yesterday She reports she has poor appetite, and is having difficulty adapting to diet Encourage the patient to intake or food Denies hematochezia, melena, foul-smelling stool; has had 4 episodes of diarrhea so far. Neurology was consulted as well regarding the patient's seizure that occurred on the 09 of May Review of Systems Review of Systems: Yes all other systems are reviewed and are negative Physical Exam Exam: Exam: General: A&O x3, oriented to time place person and situation, comfortable, no pain Cardiac: S1, S2 auscultated with no S3/4, no MRG. Well perfused. Respiratory: Normal breath sounds auscultated throughout all lung zones, without wheezing, rales. Normal rate. GI/ : No abdominal pain on palpation, no masses or distentions. MSK: Right subclavian PermCath in place. Normal ambulation without pain at bony prominences or musculature Neurological: Normal neurological examination on overview, without obvious CN II-XII abnormalities. Vital Signs: Vital Signs: Last Vital Signs Temp 97.3 F 05/10/25 12:04 Pulse 72 05/10/25 12:04 Resp 20 05/10/25 12:04 BP 140/64 H 05/10/25 12:04 Pulse Ox 96 05/10/25 12:04 O2 Del Method Room Air 05/10/25 12:04 O2 Flow Rate 2 05/07/25 10:51 BMI result Body Mass Index 24.2 Objective Data Active Medications Acetaminophen (Acetaminophen 325 Mg Tablet) 650 mg PO Q6H PRN PRN Reason: Pain, Mild 1-3,fever,headache Last Admin: 05/05/25 21:00 Dose: 650 mg Documented By: ROSY Albuterol/Ipratropium (Albuterol/Iprat 2.5/0.5mg 3 Ml Ampul.Neb) 3 ml INHALE RQ4H WHILE AWAKE PRN PRN Reason: Shortness of Breath/Wheezing Last Admin: 05/08/25 21:12 Dose: 3 ml Documented By: MUNIR Amlodipine Besylate (Amlodipine Besylate 10 Mg Tablet) 10 mg PO DAILY JAIR; Protocol Last Admin: 05/10/25 11:16 Dose: 10 mg Documented By: LUIS A Atorvastatin Calcium (Atorvastatin Calcium 80 Mg Tablet) 80 mg PO BEDTIME [facility] Last Admin: 05/09/25 21:25 Dose: 80 mg Documented By: MANOHAR Baclofen (Baclofen 10 Mg Tablet) 5 mg PO TID PRN PRN Reason: Muscle Spasm Benzocaine (Throat Lozenge, Medicated Lozenge) 1 lozenge MUCOUS MEM Q2H PRN PRN Reason: Sore Throat Last Admin: 05/03/25 20:28 Dose: 1 lozenge Documented By: SHASHI Budesonide (Budesonide 180 Mcg Aer.Pow.Ba) 2 puff INHALE RBID [facility] Last Admin: 05/10/25 08:15 Dose: 2 puff Documented By: JOSEPH Bumetanide (Bumetanide 1 Mg Tablet) 1 mg PO BIDWM [facility]; Protocol Last Admin: 05/10/25 11:17 Dose: 1 mg Documented By: LUIS A Calcitriol (Calcitriol 0.25 Mcg Capsule) 0.25 mcg PO DAILY [facility] Last Admin: 05/10/25 11:17 Dose: 0.25 mcg Documented By: LUIS A Calcium Carbonate (Calcium Carbonate 750 Mg Tab.Chew) 750 mg PO Q4H PRN PRN Reason: Heartburn Clonidine (Clonidine 0.2 Mg Patch.Tdwk) 0.2 mg TRANSDERMA WE [facility]; Protocol Last Admin: 05/04/25 10:46 Dose: 0.2 mg Documented By: LUCILA Dextrose (Dextrose 50 % 25 Gm/50 Ml Syringe) 25 gm IVPUSH Q15M PRN; Protocol PRN Reason: per Hypoglycemia Standing Ord. Divalproex Sodium (Divalproex Sodium 500 Mg Tablet.) 500 mg PO BID [facility] Last Admin: 05/10/25 11:16 Dose: 500 mg Documented By: LUIS A Duloxetine HCl (Duloxetine Hcl 60 Mg Capsule.) 60 mg PO DAILY [facility] Last Admin: 05/10/25 11:17 Dose: 60 mg Documented By: LUIS A Ferrous Sulfate (Ferrous Sulfate 324 Mg Tablet.) 324 mg PO DAILY [facility] Last Admin: 05/10/25 11:16 Dose: 324 mg Documented By: LUIS A Glucose (Glucose Gel 15 Gm Gel..Gram.) 15 gm PO Q15M PRN; Protocol PRN Reason: per Hypoglycemia Standing Ord. Heparin Sodium (Porcine) (Heparin Sodium,Porcine 5,000 Unit/Ml Vial) 5,000 unit SUBCUT Q12H [facility] Last Admin: 05/10/25 11:17 Dose: 5,000 unit Documented By: LUIS A Hydralazine HCl (Hydralazine Hcl 25 Mg Tablet) 25 mg PO TID [facility]; Protocol Last Admin: 05/10/25 11:16 Dose: 25 mg Documented By: LUIS A Insulin Human Lispro (Insulin Lispro 100 Unit/Ml 3 Ml Vial) 0 unit SUBCUT QIDACHS [facility]; Protocol Last Admin: 05/10/25 12:15 Dose: Not Given Documented By: LUIS A Non-Admin Reason: No Insulin Coverage Labetalol HCl (Labetalol Hcl 100 Mg Tablet) 100 mg PO BID [facility]; Protocol Last Admin: 05/10/25 11:17 Dose: 100 mg Documented By: LUIS A Lamotrigine (Lamotrigine 25 Mg Tablet) 25 mg PO BID [facility] Last Admin: 05/10/25 11:17 Dose: 25 mg Documented By: LUIS A Magnesium Hydroxide (Milk Of Magnesia 30 Ml Oral.Susp) 30 ml PO DAILY PRN PRN Reason: Constipation Last Admin: 05/05/25 17:11 Dose: 30 ml Documented By: CHONG Melatonin (Melatonin 3 Mg Tablet) 6 mg PO BEDTIME PRN PRN Reason: Insomnia Nicotine (Nicotine 14 Mg Patch.Td24) 14 mg TRANSDERMA DAILY [facility] Last Admin: 05/10/25 11:18 Dose: 14 mg Documented By: LUIS A Nicotine (Nicotine 14 Mg Patch.Td24) 14 mg TRANSDERMA DAILY PRN PRN Reason: Nicotine Cravings Nifedipine (Nifedipine Er 60 Mg Tab.Er.24) 60 mg PO DAILY [facility]; Protocol Last Admin: 05/10/25 11:16 Dose: 60 mg Documented By: LUIS A Nitroglycerin (Nitroglycerin 0.4 Mg Tab.Subl) 0.4 mg SUBLINGUAL Q5M PRN PRN Reason: Chest Pain Omeprazole (Omeprazole 20 Mg Capsule.Dr) 20 mg PO DAILY@0630 [facility] Last Admin: 05/10/25 05:42 Dose: 20 mg Documented By: MANOHAR Ondansetron HCl (Ondansetron Hcl 4 Mg/2 Ml Vial) 4 mg IVPUSH Q8H PRN PRN Reason: Nausea and Vomiting Last Admin: 05/10/25 10:46 Dose: 4 mg Documented By: LUIS A Quetiapine Fumarate (Quetiapine Fumarate 50 Mg Tablet) 50 mg PO BEDTIME [facility] Last Admin: 05/09/25 21:25 Dose: 50 mg Documented By: MANOHAR Sodium Chloride (0.9 % Sodium Chloride Flush 3 Ml Syringe) 3 ml IVFLUSH QSHIFT [facility] Last Admin: 05/10/25 09:09 Dose: 3 ml Documented By: LUIS A Labs 05/09/25 08:11 05/09/25 08:11 Labs: Laboratory Results - last 24 hr 05/09/25 05/09/25 05/10/25 16:12 20:36 07:06 POC Glucose 127 H 169 H 121 H 05/10/25 12:03 POC Glucose 146 H Assessment and Plan (1) Congestive heart failure: Status: Acute (2) Renal failure: Status: Acute (3) CKD (chronic kidney disease) stage 5, GFR less than 15 ml/min: Status: Acute (4) Acute kidney injury superimposed on CKD: Status: Acute (5) Metabolic acidosis with normal anion gap and failure of bicarbonate regeneration: Status: Acute (6) Seizure disorder: Status: Acute (7) Pleural effusion: Status: Acute (8) Smoking greater than 40 pack years: Status: Acute Plan 60-year-old female, new to this facility, with PMH of CVA w Left hemiparesis, Seizure disorder, smoking, CKD4, HTN, HLD, DMII, who presents with worsening shortness of breath and cough. JOE on CKD4-5 with metabolic acidosis, now progressed to ESRD permcath inserted on 05/05, started dialysis 05/05, second time 05/06, 3rd time 05/07 Nephrology making arrangment for outpatient dialysis spot Anemia of chronic disease will need IV Iron and likely IV iron transfuse for hgb < 7, hgb is 8.8 now Large left sided pleural effusion Large, no clear signs of loculation Thoracentesis, 900 removed 05/02 Diarrhea Stool PCR ordered Encouraged increased dietary intake Swelling in left arm and left leg, patient says has been like that for months US--no dvt Nicotine dependence NRT while inpatient Seizure disorder , had breakthrough seizure 05/09 morning continue Depakote and Lamotrigine, Depakote level within range EEG Neurology consulted for further recommendations Type 2 DM with hypoglycemia hold lanatus SSI Diabetic diet HTN Continue home medications : Labetalol and Hydralazine HLD Statin [employer] - VTE: Heparin - CODE STATUS: Full code - DIET: Renal Total time managing care of this patient today: 35 minutes. Quality Stroke Does the patient have a stroke diagnosis?: No VTE Prior VTE?: No VTE Risk Level:: Medical - moderate - high VTE Device Contraindication: Treatment Not Indicated VTE Drug Contraindication: N/A - Med Ordered
--- NOTE | 2025-05-10 13:15 | P.CNNE_ITS ---
History of Present Illness Data of Consult Service Date: 05/10/25 Primary Care Provider: Candice Rodriguez MD [facility] Reason for consult: Breakthrough seizure This is a 60-year-old female, with PMH of CVA w Left hemiparesis, Seizure disorder, smoking, CKD4, HTN, HLD, DMII, who presents with worsening shortness of breath and cough. JOE on CKD4-5 with metabolic acidosis, now progressed to ESRD permcath inserted on 05/05, started dialysis 05/05, second time 05/06, 3rd time 05/07. On she had a break through seizure with therapeutic Valprote levels. Has Anemia of chronic disease hgb < 7, hgb is 8.8 now. Large left sided pleural effusion. Thoracentesis, 900ml removed 05/02. The patient is very somnolent today and there was difficulty obtaining history however the patient reports that her last known breakthrough seizure event prior to this was in December of 2024. She can not recall if this was a provoked event. At home she has been compliant with her Depakote 500 mg twice daily and lamotrigine 25 mg twice daily. Review of Systems 2 Review of Systems: Yes all other systems are reviewed and are negative PMFSH Past Medical History Medical History (Updated 05/10/25 @ 13:28 by Marylu Ji CNP) Smoking greater than 40 pack years Seizure disorder Social History Social History Housing: House Do you presently have visiting nurse or other home services: Yes Patient Tobacco Use Status: Current everyday Tobacco user Tobacco use type: Cigarette service: No Meds Allergies Allergy/AdvReac Type Severity Reaction Status Date / Time No Known Allergies Allergy Unverified 02/03/20 16:13 amy inhibitors Allergy Unknown cough Uncoded 05/01/25 23:51 Active Medications: Current Medications Acetaminophen (Acetaminophen 325 Mg Tablet) 650 mg PO Q6H PRN PRN Reason: Pain, Mild 1-3,fever,headache Last Admin: 05/05/25 21:00 Dose: 650 mg Albuterol/Ipratropium (Albuterol/Iprat 2.5/0.5mg 3 Ml Ampul.Neb) 3 ml INHALE RQ4H WHILE AWAKE PRN PRN Reason: Shortness of Breath/Wheezing Last Admin: 05/08/25 21:12 Dose: 3 ml Amlodipine Besylate (Amlodipine Besylate 10 Mg Tablet) 10 mg PO DAILY [facility]; Protocol Last Admin: 05/10/25 11:16 Dose: 10 mg Atorvastatin Calcium (Atorvastatin Calcium 80 Mg Tablet) 80 mg PO BEDTIME [facility] Last Admin: 05/09/25 21:25 Dose: 80 mg Baclofen (Baclofen 10 Mg Tablet) 5 mg PO TID PRN PRN Reason: Muscle Spasm Benzocaine (Throat Lozenge, Medicated Lozenge) 1 lozenge MUCOUS MEM Q2H PRN PRN Reason: Sore Throat Last Admin: 05/03/25 20:28 Dose: 1 lozenge Budesonide (Budesonide 180 Mcg Aer.Pow.Ba) 2 puff INHALE RBID [facility] Last Admin: 05/10/25 08:15 Dose: 2 puff Bumetanide (Bumetanide 1 Mg Tablet) 1 mg PO BIDWM [facility]; Protocol Last Admin: 05/10/25 11:17 Dose: 1 mg Calcitriol (Calcitriol 0.25 Mcg Capsule) 0.25 mcg PO DAILY [facility] Last Admin: 05/10/25 11:17 Dose: 0.25 mcg Calcium Carbonate (Calcium Carbonate 750 Mg Tab.Chew) 750 mg PO Q4H PRN PRN Reason: Heartburn Clonidine (Clonidine 0.2 Mg Patch.Tdwk) 0.2 mg TRANSDERMA WE [facility]; Protocol Last Admin: 05/04/25 10:46 Dose: 0.2 mg Dextrose (Dextrose 50 % 25 Gm/50 Ml Syringe) 25 gm IVPUSH Q15M PRN; Protocol PRN Reason: per Hypoglycemia Standing Ord. Divalproex Sodium (Divalproex Sodium 500 Mg Tablet.) 500 mg PO BID [facility] Last Admin: 05/10/25 11:16 Dose: 500 mg Duloxetine HCl (Duloxetine Hcl 60 Mg Capsule.) 60 mg PO DAILY [facility] Last Admin: 05/10/25 11:17 Dose: 60 mg Ferrous Sulfate (Ferrous Sulfate 324 Mg Tablet.) 324 mg PO DAILY [facility] Last Admin: 05/10/25 11:16 Dose: 324 mg Glucose (Glucose Gel 15 Gm Gel..Gram.) 15 gm PO Q15M PRN; Protocol PRN Reason: per Hypoglycemia Standing Ord. Heparin Sodium (Porcine) (Heparin Sodium,Porcine 5,000 Unit/Ml Vial) 5,000 unit SUBCUT Q12H [facility] Last Admin: 05/10/25 11:17 Dose: 5,000 unit Hydralazine HCl (Hydralazine Hcl 25 Mg Tablet) 25 mg PO TID [facility]; Protocol Last Admin: 05/10/25 11:16 Dose: 25 mg Insulin Human Lispro (Insulin Lispro 100 Unit/Ml 3 Ml Vial) 0 unit SUBCUT QIDACHS [facility]; Protocol Last Admin: 05/10/25 12:15 Dose: Not Given Labetalol HCl (Labetalol Hcl 100 Mg Tablet) 100 mg PO BID [facility]; Protocol Last Admin: 05/10/25 11:17 Dose: 100 mg Lamotrigine (Lamotrigine 25 Mg Tablet) 25 mg PO BID [facility] Last Admin: 05/10/25 11:17 Dose: 25 mg Magnesium Hydroxide (Milk Of Magnesia 30 Ml Oral.Susp) 30 ml PO DAILY PRN PRN Reason: Constipation Last Admin: 05/05/25 17:11 Dose: 30 ml Melatonin (Melatonin 3 Mg Tablet) 6 mg PO BEDTIME PRN PRN Reason: Insomnia Nicotine (Nicotine 14 Mg Patch.Td24) 14 mg TRANSDERMA DAILY [facility] Last Admin: 05/10/25 11:18 Dose: 14 mg Nicotine (Nicotine 14 Mg Patch.Td24) 14 mg TRANSDERMA DAILY PRN PRN Reason: Nicotine Cravings Nifedipine (Nifedipine Er 60 Mg Tab.Er.24) 60 mg PO DAILY [facility]; Protocol Last Admin: 05/10/25 11:16 Dose: 60 mg Nitroglycerin (Nitroglycerin 0.4 Mg Tab.Subl) 0.4 mg SUBLINGUAL Q5M PRN PRN Reason: Chest Pain Omeprazole (Omeprazole 20 Mg Capsule.Dr) 20 mg PO DAILY@0630 [facility] Last Admin: 05/10/25 05:42 Dose: 20 mg Ondansetron HCl (Ondansetron Hcl 4 Mg/2 Ml Vial) 4 mg IVPUSH Q8H PRN PRN Reason: Nausea and Vomiting Last Admin: 05/10/25 10:46 Dose: 4 mg Quetiapine Fumarate (Quetiapine Fumarate 50 Mg Tablet) 50 mg PO BEDTIME [facility] Last Admin: 05/09/25 21:25 Dose: 50 mg Sodium Chloride (0.9 % Sodium Chloride Flush 3 Ml Syringe) 3 ml IVFLUSH QSHIFT [facility] Last Admin: 05/10/25 09:09 Dose: 3 ml Home Medications ?Medication ?Instructions ?Recorded ?Confirmed ?Last Taken ?Type acetaminophen 500 mg tablet 500 mg PO Q6H PRN Pain 05/02/25 Unknown History amlodipine 10 mg tablet 10 mg PO DAILY 05/02/2504/18 Unknown History atorvastatin 80 mg tablet 80 mg PO BEDTIME cholesterol 05/02/25 05/02/25 05/01/25 History baclofen 10 mg tablet 5 mg PO TID PRN Muscle Spasm 05/02/25 05/02/25 Unknown History budesonide-formoterol HFA 160 1 - 2 puff inhalation Q4 -6H PRN 05/02/25 05/02/25 Unknown History mcg-4.5 mcg/actuation aerosol dyspnea inhaler (Symbicort) bumetanide 1 mg tablet 1 mg PO BID 05/02/25 5 05/01/25 History calcitriol 0.25 mcg capsule 0.25 mcg PO DAILY 05/02/25 05/02/25 05/01/25 History clonidine 0.2 mg/24 hr weekly 0.2 mg topical WE 05/02/25 04/27/25 History transdermal patch divalproex 500 mg tablet,delayed 500 mg PO BID 5 05/02/25 05/01/25 History release duloxetine 60 mg capsule,delayed 60 mg PO DAILY 05/02/25 05/01/25 History release ferrous sulfate 325 mg (65 mg 325 mg PO DAILY 05/02/25 05/02/25 05/01/25 History iron) tablet hydralazine 50 mg tablet 50 mg PO TID 05/02/2505/01/25 History insulin glargine 100 unit/mL (3 24 unit subcut BEDTIME 05/02/25 05/02/25 05/01/25 History mL) subcutaneous pen (Lantus Solostar U-100 Insulin) insulin lispro 100 unit/mL See Protocol subcut TIDAC 1 07/03/24 05/02/25 05/01/25 History subcutaneous pen labetalol 100 mg tablet 100 mg PO TID blood pressure 12/05/02/25 05/01/25 History lamotrigine 25 mg tablet 25 mg PO BID 05/02/2505/01/25 History nicotine 14 mg/24 hr daily 1 patch transdermal DAILY P RN 05/02/25 05/02/25 Unknown History transdermal patch Nicotine Cravings nifedipine 60 mg tablet,extended 60 mg PO DAILY blood pressure 05/02/25 05/02/25 05/01/25 History release 24 hr nitroglycerin 0.3 mg sublingual 0.3 mg sublingual Q5M PRN Chest 05/02/25 05/02/25 Unknown History tablet Pain pantoprazole 40 mg tablet,delayed 40 mg PO DAILY@0630 05/02/25 05/02/25 05/01/25 History release quetiapine 50 mg tablet 50 mg PO BEDTIME 05/02/2505/01/25 History Physical Exam 2 Vital Signs: Vital Signs: Last Vital Signs Temp 97.3 F 05/10/25 12:04 Pulse 72 05/10/25 12:04 Resp 20 05/10/25 12:04 BP 140/64 H 05/10/25 12:04 Pulse Ox 96 05/10/25 12:04 O2 Del Method Room Air 05/10/25 12:04 O2 Flow Rate 2 05/07/25 10:51 BMI result Body Mass Index 24.2 Const: General: no acute distress, lethargic and tired appearing O rientation/consciousness: patient oriented x3 and lethargic Limitations: p hysical limitations Neuro: General: patient oriented x3 and Unable to assess gait Gait exam (Neuro): Unable to assess gait Results Labs 05/09/25 08:11 05/09/25 08:11 Microbiology Microbiology Results: Microbiology 05/02/25 13:41 Pleura Gram Stain - Final 05/02/25 13:41 Pleura Routine Culture - Final No growth after 2 days 05/02/25 13:41 Pleura Anaerobic Culture - Final NO GROWTH AFTER 5 DAYS 05/02/25 00:46 Blood - Venous Blood Culture - Final No growth after 5 days. 05/02/25 00:36 Blood - Venous Blood Culture - Final No growth after 5 days. Assessment and Plan (1) Breakthrough seizure: Status: Acute Plan This is a 60-year-old female, with PMH of CVA w Left hemiparesis, Seizure disorder, smoking, CKD4, HTN, HLD, DMII, who presents with worsening shortness of breath and cough. JOE on CKD4-5 with metabolic acidosis, now progressed to ESRD. She experienced a breakthrough seizure event today just prior to her dialysis treatment this morning. She received IV Valium with good response. Depakote levels were within therapeutic range. An EEG has been ordered. It may be reasonable to increase lamotrigine/optimize dosing especially the nighttime dose taking into consideration dialysis scheduling. I would recommend for now increasing the lamotrigine from 25mg BID to 25mg am and 50mg pm and then follow-up with neurology outpatient for further dosing adjustments with close laboratory monitoring. Procedures Date of Service Date of Service: 05/10/25
--- NOTE | 2025-05-10 13:20 | MHC.CM.PN ---
Addendum entered by Elena Salmon 05/11/25 11:05: Patient has accepted a bed offer from [facility], who is initiating CCA auth today. Addendum entered by Elena Salmon 05/11/25 10:40: CM has asked [facility] if they are able to accept Patient for STR & new HD and to initiate CCA today. CM will follow. Original Note: Patient has a T/TH/Sat HD slot at [facility].
[2025-05-10 15:52] LABS: Glucose, Whole Blood 174 mg/dL (60-115)
[2025-05-10 20:29] LABS: Glucose, Whole Blood 93 mg/dL (60-115)
--- NOTE | 2025-05-10 22:42 | PM.PNNEP ---
Subjective Subjective Date of Service: 05/10/25 Interval history: seen and examined,e vents noted Physical Exam Vital Signs: Vital Signs: Last Vital Signs Temp 98.2 F 05/10/25 20:55 Pulse 89 05/10/25 20:55 Resp 18 05/10/25 20:55 BP 149/67 H 05/10/25 20:55 Pulse Ox 93 05/10/25 20:55 O2 Del Method Room Air 05/10/25 20:55 O2 Flow Rate 2 05/07/25 10:51 BMI result Body Mass Index 24.2 Const: Other: Constitutional : Awake, interactive, not in distress Neck : Normal inspection, Supple Cardiovascular : RRR, no JVP, Respiratory : good air entry right side, decrease air enrty to left lung , no air movement at the base, no crackles, wheezes or rhonchi Gastrointestinal: soft, lax, Normal bowel sounds, Non tender Skin : Warm, Dry Neurological : Alert & oriented x3, Left sided hemiparesis Objective Data Labs 05/09/25 08:11 05/09/25 08:11 Labs: Laboratory Results - last 24 hr 05/10/25 05/10/25 05/10/25 07:06 12:03 15:36 POC Glucose 121 H 146 H 174 H 05/10/25 20:25 POC Glucose 93 Microbiology Microbiology Results: Microbiology 05/02/25 13:41 Pleura Gram Stain - Final 05/02/25 13:41 Pleura Routine Culture - Final No growth after 2 days 05/02/25 13:41 Pleura Anaerobic Culture - Final NO GROWTH AFTER 5 DAYS 05/02/25 00:46 Blood - Venous Blood Culture - Final No growth after 5 days. 05/02/25 00:36 Blood - Venous Blood Culture - Final No growth after 5 days. Procedures Date of Service Date of Service: 05/10/25 Assessment & Plan Assessment and plan (1) CKD (chronic kidney disease) stage 5, GFR less than 15 ml/min: Status: Acute Plan 1. CKD 5 c/w prog DN/HTN renal dis now ESRD and on HD 2. Hypervol: needs to incr diuretics, and now will pull fluid w HD today 3. HTN: cont tot rack and adj meds 4. Nephrogenic anemia: r/o Fe def and look to start EPO 5. MBD of CKD: chececk PTH/vit D 6. SZ disorder: meds adj and neuro eval PLNA:cont HD: [id number] WIll follow w team Time Spent With Patient Time: Total time managing care of this patient today ____ minutes. Progress Note: Quality Stroke Does the patient have a stroke diagnosis?: No
[2025-05-11] VITALS: BP 144/66; PULSE 75; RESP 18; TEMP 36.8; O2SAT 93
[2025-05-11 03:47] VITALS: BP 142/61; PULSE 74; RESP 18; TEMP 36.7; O2SAT 93
[2025-05-11 07:11] VITALS: BP 142/81; PULSE 75; RESP 16; TEMP 36.8; O2SAT 97
[2025-05-11 07:21] LABS: Glucose, Whole Blood 144 mg/dL (60-115)
[2025-05-11 09:21] LABS: E. coli EAEC Not Detected (Not Detect.); E. coli EPEC Not Detected (Not Detect.); E. coli ETEC Not Detected (Not Detect.); E. coli STEC Not Detected (Not Detect.); Shigella sp./EIEC Not Detected (Not Detect.)
[2025-05-11] MEDS: Ferrous Sulfate 324 MG TABLET.DR PO (09:23)
[2025-05-11] MEDS: 0.9 % Sodium Chloride Flush 3 ML SYRINGE IVFLUSH (09:24)
[2025-05-11] MEDS: NIFEdipine ER 60 MG TAB.ER.24 PO (09:24)
[2025-05-11] MEDS: cloNIDine 0.2 MG PATCH.TDWK TRANSDERMA (09:51)
[2025-05-11] MEDS: Nicotine 14 MG PATCH.TD24 TRANSDERMA (09:51)
--- NOTE | 2025-05-11 10:52 | P.PNIM_ITS ---
Subjective Subjective Date of Service: 05/11/25 Interval History: no new issues today reports feeling sleepy and tired overall reccs from neurology to increase lamotrigene to 25mg am and 50mg pm - changes made today Pending Nephro reccs regarding HD Placement achieved outpatient TTS HD Review of Systems Review of Systems: Yes all other systems are reviewed and are negative Physical Exam 2 Exam: Exam: General: A&O x3, oriented to time place person and situation, comfortable, no pain Cardiac: S1, S2 auscultated with no S3/4, no MRG. Well perfused. Respiratory: Normal breath sounds auscultated throughout all lung zones, without wheezing, rales. Normal rate. GI/ : No abdominal pain on palpation, no masses or distentions. MSK: Right subclavian PermCath in place. Normal ambulation without pain at bony prominences or musculature Neurological: Normal neurological examination on overview, without obvious CN II-XII abnormalities. Vital Signs: Vital Signs: Last Vital Signs Temp 98.2 F 05/11/25 07:11 Pulse 75 05/11/25 07:11 Resp 16 05/11/25 07:11 BP 142/81 H 05/11/25 07:11 Pulse Ox 97 05/11/25 07:11 O2 Del Method Room Air 05/11/25 07:11 O2 Flow Rate 2 05/07/25 10:51 BMI result Body Mass Index 24.2 Objective Data Active Medications Acetaminophen (Acetaminophen 325 Mg Tablet) 650 mg PO Q6H PRN PRN Reason: Pain, Mild 1-3,fever,headache Last Admin: 05/05/25 21:00 Dose: 650 mg Documented By: ROSY Albuterol/Ipratropium (Albuterol/Iprat 2.5/0.5mg 3 Ml Ampul.Neb) 3 ml INHALE RQ4H WHILE AWAKE PRN PRN Reason: Shortness of Breath/Wheezing Last Admin: 05/08/25 21:12 Dose: 3 ml Documented By: MUNIR Amlodipine Besylate (Amlodipine Besylate 10 Mg Tablet) 10 mg PO DAILY [facility]; Protocol Last Admin: 05/11/25 09:23 Dose: 10 mg Documented By: MARCO A Atorvastatin Calcium (Atorvastatin Calcium 80 Mg Tablet) 80 mg PO BEDTIME [facility] Last Admin: 05/10/25 21:03 Dose: 80 mg Documented By: YTRELL Baclofen (Baclofen 10 Mg Tablet) 5 mg PO TID PRN PRN Reason: Muscle Spasm Benzocaine (Throat Lozenge, Medicated Lozenge) 1 lozenge MUCOUS MEM Q2H PRN PRN Reason: Sore Throat Last Admin: 05/03/25 20:28 Dose: 1 lozenge Documented By: SHASHI Budesonide (Budesonide 180 Mcg Aer.Pow.Ba) 2 puff INHALE RBID [facility] Last Admin: 05/11/25 07:38 Dose: Not Given Documented By: RHIANNA Non-Admin Reason: See Note Bumetanide (Bumetanide 1 Mg Tablet) 1 mg PO BIDWM [facility]; Protocol Last Admin: 05/11/25 09:24 Dose: 1 mg Documented By: MARCO A Calcitriol (Calcitriol 0.25 Mcg Capsule) 0.25 mcg PO DAILY [facility] Last Admin: 05/11/25 09:24 Dose: 0.25 mcg Documented By: MARCO A Calcium Carbonate (Calcium Carbonate 750 Mg Tab.Chew) 750 mg PO Q4H PRN PRN Reason: Heartburn Clonidine (Clonidine 0.2 Mg Patch.Tdwk) 0.2 mg TRANSDERMA WE [facility]; Protocol Last Admin: 05/11/25 09:51 Dose: 0.2 mg Documented By: MARCO A Dextrose (Dextrose 50 % 25 Gm/50 Ml Syringe) 25 gm IVPUSH Q15M PRN; Protocol PRN Reason: per Hypoglycemia Standing Ord. Divalproex Sodium (Divalproex Sodium 500 Mg Tablet.) 500 mg PO BID [facility] Last Admin: 05/11/25 09:23 Dose: 500 mg Documented By: MARCO A Duloxetine HCl (Duloxetine Hcl 60 Mg Capsule.) 60 mg PO DAILY [facility] Last Admin: 05/11/25 09:23 Dose: 60 mg Documented By: MARCO A Ferrous Sulfate (Ferrous Sulfate 324 Mg Tablet.) 324 mg PO DAILY [facility] Last Admin: 05/11/25 09:23 Dose: 324 mg Documented By: MARCO A Glucose (Glucose Gel 15 Gm Gel..Gram.) 15 gm PO Q15M PRN; Protocol PRN Reason: per Hypoglycemia Standing Ord. Heparin Sodium (Porcine) (Heparin Sodium,Porcine 5,000 Unit/Ml Vial) 5,000 unit SUBCUT Q12H [facility] Last Admin: 05/11/25 09:32 Dose: 5,000 unit Documented By: MARCO A Hydralazine HCl (Hydralazine Hcl 25 Mg Tablet) 25 mg PO TID [facility]; Protocol Last Admin: 05/11/25 09:23 Dose: 25 mg Documented By: MARCO A Insulin Human Lispro (Insulin Lispro 100 Unit/Ml 3 Ml Vial) 0 unit SUBCUT QIDACHS [facility]; Protocol Last Admin: 05/11/25 09:16 Dose: Not Given Documented By: MARCO A Non-Admin Reason: No Insulin Coverage Labetalol HCl (Labetalol Hcl 100 Mg Tablet) 100 mg PO BID [facility]; Protocol Last Admin: 05/11/25 09:24 Dose: 100 mg Documented By: MARCO A Lamotrigine (Lamotrigine 25 Mg Tablet) 25 mg PO DAILY [facility] Last Admin: 05/11/25 09:24 Dose: 25 mg Documented By: MARCO A Lamotrigine (Lamotrigine 25 Mg Tablet) 50 mg PO BEDTIME [facility] Magnesium Hydroxide (Milk Of Magnesia 30 Ml Oral.Susp) 30 ml PO DAILY PRN PRN Reason: Constipation Last Admin: 05/05/25 17:11 Dose: 30 ml Documented By: CHONG Melatonin (Melatonin 3 Mg Tablet) 6 mg PO BEDTIME PRN PRN Reason: Insomnia Nicotine (Nicotine 14 Mg Patch.Td24) 14 mg TRANSDERMA DAILY [facility] Last Admin: 05/11/25 09:51 Dose: 14 mg Documented By: MARCO A Nicotine (Nicotine 14 Mg Patch.Td24) 14 mg TRANSDERMA DAILY PRN PRN Reason: Nicotine Cravings Nifedipine (Nifedipine Er 60 Mg Tab.Er.24) 60 mg PO DAILY [facility]; Protocol Last Admin: 05/11/25 09:24 Dose: 60 mg Documented By: MARCO A Nitroglycerin (Nitroglycerin 0.4 Mg Tab.Subl) 0.4 mg SUBLINGUAL Q5M PRN PRN Reason: Chest Pain Omeprazole (Omeprazole 20 Mg Capsule.Dr) 20 mg PO DAILY@0630 [facility] Last Admin: 05/11/25 05:41 Dose: 20 mg Documented By: TYRELL Ondansetron HCl (Ondansetron Hcl 4 Mg/2 Ml Vial) 4 mg IVPUSH Q8H PRN PRN Reason: Nausea and Vomiting Last Admin: 05/10/25 10:46 Dose: 4 mg Documented By: LUIS A Quetiapine Fumarate (Quetiapine Fumarate 50 Mg Tablet) 50 mg PO BEDTIME [facility] Last Admin: 05/10/25 21:03 Dose: 50 mg Documented By: TYRELL Sodium Chloride (0.9 % Sodium Chloride Flush 3 Ml Syringe) 3 ml IVFLUSH QSHIFT [facility] Last Admin: 05/11/25 09:24 Dose: 3 ml Documented By: MARCO A Labs 05/09/25 08:11 05/09/25 08:11 Labs: Laboratory Results - last 24 hr 05/10/25 05/10/25 05/10/25 12:03 15:10 15:36 POC Glucose 146 H 174 H Stl C. cayetanensis PCR Not Detected Stool Rotavirus A PCR Not Detected Stl Adenov F 40/41 PCR Not Detected Stool Astrovirus (PCR) Not Detected Stool Campylobacter PCR Not Detected Stool Cryptosporidium PCR Not Detected Stl Sh Tox Pr E STEC PCR Not Detected Stool E coli O157 PCR Not applicable Stl Enterotoxigenic E PCR Not Detected Stool EPEC (PCR) Not Detected Stool EAEC (PCR) Not Detected Stl E. histolytica PCR Not Detected Stool Giardia Lamblia PCR Not Detected Stl P. shigelloides PCR Not Detected Stool Salmonella PCR Not Detected Stool Sapovirus (PCR) Not Detected Stl Shigella/EIEC PCR Not Detected St Y.enterocolitica PCR Not Detected Stool Vibrio (PCR) Not Detected Stl Vibrio cholerae PCR Not Detected Stl Norovirus GI/GII PCR Not Detected 05/10/25 05/11/25 20:25 07:18 POC Glucose 93 144 H Stl C. cayetanensis PCR Stool Rotavirus A PCR Stl Adenov F 40/41 PCR Stool Astrovirus (PCR) Stool Campylobacter PCR Stool Cryptosporidium PCR Stl Sh Tox Pr E STEC PCR Stool E coli O157 PCR Stl Enterotoxigenic E PCR Stool EPEC (PCR) Stool EAEC (PCR) Stl E. histolytica PCR Stool Giardia Lamblia PCR Stl P. shigelloides PCR Stool Salmonella PCR Stool Sapovirus (PCR) Stl Shigella/EIEC PCR St Y.enterocolitica PCR Stool Vibrio (PCR) Stl Vibrio cholerae PCR Stl Norovirus GI/GII PCR Assessment and Plan (1) Congestive heart failure: Status: Acute (2) Renal failure: Status: Acute (3) CKD (chronic kidney disease) stage 5, GFR less than 15 ml/min: Status: Acute (4) Acute kidney injury superimposed on CKD: Status: Acute (5) Metabolic acidosis with normal anion gap and failure of bicarbonate regeneration: Status: Acute (6) Breakthrough seizure: Status: Acute (7) Seizure disorder: Status: Acute (8) Pleural effusion: Status: Acute (9) Smoking greater than 40 pack years: Status: Acute Plan 60-year-old female, new to this facility, with PMH of CVA w Left hemiparesis, Seizure disorder, smoking, CKD4, HTN, HLD, DMII, who presents with worsening shortness of breath and cough. JOE on CKD4-5 with metabolic acidosis, now progressed to ESRD permcath inserted on 05/05, started dialysis 05/05, second time 05/06, 3rd time 05/07 Nephrology making arrangment for outpatient dialysis spot; TTS Anemia of chronic disease will need IV Iron and likely IV iron transfuse for hgb < 7, hgb is 8.8 now Large left sided pleural effusion Large, no clear signs of loculation Thoracentesis, 900 removed 05/02 Diarrhea Stool PCR ordered Encouraged increased dietary intake Swelling in left arm and left leg, patient says has been like that for months US--no dvt Nicotine dependence NRT while inpatient Seizure disorder , had breakthrough seizure 05/09 morning continue Depakote and Lamotrigine, Depakote level within range EEG Neurology consulted for further recommendations Type 2 DM with hypoglycemia hold lanatus SSI Diabetic diet HTN Continue home medications : Labetalol and Hydralazine HLD Statin - [employer] - VTE: Heparin - CODE STATUS: Full code - DIET: Renal - DISPOSITION: STR placement; pending auth Total time managing care of this patient today: 35 minutes. Quality Stroke Does the patient have a stroke diagnosis?: No VTE Prior VTE?: No VTE Risk Level:: Medical - moderate - high VTE Device Contraindication: Treatment Not Indicated VTE Drug Contraindication: N/A - Med Ordered
[2025-05-11 11:04] LABS: Glucose, Whole Blood 162 mg/dL (60-115)
[2025-05-11 11:21] VITALS: BP 152/70; PULSE 68; RESP 16; TEMP 36.6; O2SAT 95
[2025-05-11 11:42] LABS: MANUAL DIFF FLAG NO
[2025-05-11 11:51] LABS: Hematocrit 24.6 % (37.0-47.0); Hemoglobin 8.0 g/dl (12.0-16.0); Imm Gran Abs Auto 0.23 X10*3/uL (0.00-0.03); Imm Gran Pct Auto 2.9 % (0.0-0.4); Lymphocytes Absolute Auto 1.4 X10*3/uL (1.2-4.9); Mean Corpuscular HGB Conc 32.5 g/dl (31.0-35.0); Mean Corpuscular Hemoglobin 29.9 pg (27.0-33.0); Mean Corpuscular Volume 91.8 fL (80.0-98.0); NRBC Abs Auto 0.000 X10*3/uL (0.0-0.012); NRBC Pct Auto 0.0 /100WBC (0.0-0.2); Platelet Count 182 X10*3/uL (160-400); Red Blood Count 2.68 X10*6/uL (4.20-5.50); White Blood Count 8.0 X10*3/uL (4.8-10.8)
[2025-05-11 12:02] LABS: Anion Gap 13 (12-20); Blood Urea Nitrogen 16 mg/dL (9-16); Calcium 7.7 mg/dL (8.4-10.2); Carbon Dioxide 27 mmol/L (22-29); Chloride 101 mmol/L (96-108); Creatinine Clr Calc Pharmacy 20.7; Estimated Glomerular Filt Rate 16; Potassium 3.5 mmol/L (3.3-5.1); Sodium 137 mmol/L (135-145)
--- NOTE | 2025-05-11 14:01 | PM.DS ---
DS: Providers Provider Date of admission: 05/02/25 03:44 Date of discharge: 05/11/25 Primary care physician: Candice Rodriguez MD Consults: 05/02/25 03:54 Consult to Nephrology Routine Consulting Provider: [facility] Reason for consultation: oligouric renal failure 05/10/25 07:57 Consult to Neurology Routine Consulting Provider: [facility] Reason for consultation: breakthrough seizure 05/09 DS: Diagnosis Discharge Diagnosis (1) Congestive heart failure: Status: Acute (2) Renal failure: Status: Acute (3) CKD (chronic kidney disease) stage 5, GFR less than 15 ml/min: Status: Acute (4) Acute kidney injury superimposed on CKD: Status: Acute (5) Metabolic acidosis with normal anion gap and failure of bicarbonate regeneration: Status: Acute (6) Breakthrough seizure: Status: Acute (7) Seizure disorder: Status: Acute (8) Pleural effusion: Status: Acute (9) Smoking greater than 40 pack years: Status: Acute DS: Summary Hospital Course Hospital Course: 60-year-old female?with PMH of?CVA with left hemiparesis, seizure disorder, CKD4 progressing to ESRD, HTN, HLD, type 2 diabetes mellitus, and active tobacco use, admitted with?acute hypoxic dyspnea due to a large left-sided pleural effusion and acute on chronic kidney failure with metabolic acidosis, now?status post thoracentesis and initiation of hemodialysis via permcath, hospital course complicated by?breakthrough seizure, currently?medically stable for discharge to [facility] with outpatient hemodialysis arranged. 1. End-Stage Renal Disease (progression from JOE on CKD4?5) Presented with worsening renal function, metabolic acidosis, uremic symptoms, and volume overload. Underwent right subclavian permcath placement on?05/05?and initiated hemodialysis (sessions on?05/05, 05/06, 05/07). Renal function stabilized on dialysis. Outpatient dialysis chair confirmed. Plan: Continue?intermittent hemodialysis TTS?at assigned outpatient unit Maintain permcath care; monitor for signs of infection Renal diet Continue nephrology follow-up outpatient 2. Volume Overload with Large Left-Sided Pleural Effusion Large effusion causing near-complete left lung collapse on admission. Underwent?thoracentesis on 05/02 with 900 mL removed; fluid cultures negative. Respiratory status improved post-procedure and with dialysis-assisted volume removal. Plan: No further inpatient intervention required Monitor for recurrent dyspnea Volume management via dialysis Outpatient follow-up as needed 3. Seizure Disorder with Breakthrough Seizure History of seizure disorder on valproate and lamotrigine. Had?breakthrough seizure on 05/09?with therapeutic valproate level. Evaluated by Neurology; EEG obtained. Lamotrigine dose adjusted. Plan: Continue?divalproex 500 mg BID Lamotrigine 25 mg AM / 50 mg PM Seizure precautions Outpatient neurology follow-up 4. Anemia of Chronic Kidney Disease Chronic normocytic anemia related to ESRD. Hemoglobin stabilized without transfusion during hospitalization. Plan: Continue iron supplementation EPO per nephrology at dialysis center Transfuse only if Hgb < 7 5. Hypertension Long-standing hypertension; blood pressures controlled on current regimen during hospitalization. Plan: Continue?labetalol, hydralazine, nifedipine, clonidine patch Monitor BP with dialysis and outpatient care 6. Type 2 Diabetes Mellitus Hypoglycemia noted early in admission; basal insulin held. Glucose controlled with sliding scale. Plan: Continue?sliding-scale insulin Hold long-acting insulin for now Diabetic/renal diet 7. Hyperlipidemia Previously on high-dose statin. Plan: Continue?atorvastatin 8. Tobacco Use Disorder Active smoker during admission. Plan: Continue?nicotine replacement therapy Smoking cessation counseling Status at Discharge Cognitive/behavioral status at discharge: A&O x3 Functional status at discharge: uses cane/walker Overall status at discharge: patient is back to baseline Time Attestation Total time managing care of this patient today: 45 mintues. Discharge Coordination Time (in mins): 45 Quality: Safe Use of Opioids Does Pt have an Active Cancer Diagnosis on the Problem List?: No Quality: Stroke Does the patient have a stroke diagnosis?: No Physical Exam Exam: Exam: General:?Chronically ill-appearing female, resting comfortably in bed, in no acute distress. Vital Signs:?Stable; afebrile. HEENT:?Normocephalic, atraumatic. Mucous membranes moist. Neck:?Supple. No JVD. Cardiovascular:?Regular rate and rhythm. No murmurs, rubs, or gallops. Respiratory:?Decreased breath sounds at left base. No wheezes or crackles. No respiratory distress. Abdomen:?Soft, non-tender, non-distended. Bowel sounds present. Extremities:?Trace bilateral lower extremity edema. No cyanosis or clubbing. Neurologic:?Alert and oriented ?3. Chronic left-sided hemiparesis. No acute focal deficits. Skin:?Warm, dry, intact. Lines/Access:?Right subclavian permcath clean, dry, intact. Vital Signs: Vital Signs: Last Vital Signs Temp 97.9 F 05/11/25 11:21 Pulse 68 05/11/25 11:21 Resp 16 05/11/25 11:21 BP 152/70 H 05/11/25 11:21 Pulse Ox 95 05/11/25 11:21 O2 Del Method Room Air 05/11/25 11:21 O2 Flow Rate 2 05/07/25 10:51 BMI result Body Mass Index 24.2 DS: Data Data Completed and Pending Labs on day of discharge: Laboratory Results - last 24 hr 05/10/25 05/10/25 05/10/25 15:10 15:36 20:25 WBC RBC Hgb Hct MCV MCH MCHC RDW Plt Count MPV Immature Gran % (Auto) Neut % (Auto) Lymph % (Auto) [place] % (Auto) Eos % (Auto) Baso % (Auto) Lymph # (Auto) [place] # (Auto) Eos # (Auto) Baso # (Auto) Abs Immat Gran (auto) Absolute Neuts (auto) Absolute Nucleated RBC Nucleated RBC % (auto) Sodium Potassium Chloride Carbon Dioxide Anion Gap BUN Creatinine Estim Creat Clear Calc Estimated GFR POC Glucose 174 H 93 Random Glucose Calcium Stl C. cayetanensis PCR Not Detected Stool Rotavirus A PCR Not Detected Stl Adenov F 40/41 PCR Not Detected Stool Astrovirus (PCR) Not Detected Stool Campylobacter PCR Not Detected Stool Cryptosporidium PCR Not Detected Stl Sh Tox Pr E STEC PCR Not Detected Stool E coli O157 PCR Not applicable Stl Enterotoxigenic E PCR Not Detected Stool EPEC (PCR) Not Detected Stool EAEC (PCR) Not Detected Stl E. histolytica PCR Not Detected Stool Giardia Lamblia PCR Not Detected Stl P. shigelloides PCR Not Detected Stool Salmonella PCR Not Detected Stool Sapovirus (PCR) Not Detected Stl Shigella/EIEC PCR Not Detected St Y.enterocolitica PCR Not Detected Stool Vibrio (PCR) Not Detected Stl Vibrio cholerae PCR Not Detected Stl Norovirus GI/GII PCR Not Detected 05/11/25 05/11/25 05/11/25 07:18 11:01 11:31 WBC 8.0 RBC 2.68 L Hgb 8.0 L Hct 24.6 L MCV 91.8 MCH 29.9 MCHC 32.5 RDW 13.8 Plt Count 182 MPV 9.6 Immature Gran % (Auto) 2.9 H Neut % (Auto) 69.7 Lymph % (Auto) 16.8 L [place] % (Auto) 8.2 Eos % (Auto) 2.2 Baso % (Auto) 0.2 Lymph # (Auto) 1.4 [place] # (Auto) 0.7 Eos # (Auto) 0.2 Baso # (Auto) 0.0 Abs Immat Gran (auto) 0.23 H Absolute Neuts (auto) 5.6 Absolute Nucleated RBC 0.000 Nucleated RBC % (auto) 0.0 Sodium 137 Potassium 3.5 Chloride 101 Carbon Dioxide 27 Anion Gap 13 BUN 16 Creatinine 2.98 H Estim Creat Clear Calc 20.7 Estimated GFR 16 POC Glucose 144 H 162 H Random Glucose 166 H Calcium 7.7 L Stl C. cayetanensis PCR Stool Rotavirus A PCR Stl Adenov F 40/41 PCR Stool Astrovirus (PCR) Stool Campylobacter PCR Stool Cryptosporidium PCR Stl Sh Tox Pr E STEC PCR Stool E coli O157 PCR Stl Enterotoxigenic E PCR Stool EPEC (PCR) Stool EAEC (PCR) Stl E. histolytica PCR Stool Giardia Lamblia PCR Stl P. shigelloides PCR Stool Salmonella PCR Stool Sapovirus (PCR) Stl Shigella/EIEC PCR St Y.enterocolitica PCR Stool Vibrio (PCR) Stl Vibrio cholerae PCR Stl Norovirus GI/GII PCR Discharge Plan Discharge Anticipated Discharge Date/Time: 05/11/25 14:03 Patient Disposition: Xfer Inpatient Rehab Fac Discharge Diagnosis: acute hypoxic dyspnea due to a large left-sided pleural effusion and acute on chronic kidney failure with metabolic acidosis, status post thoracentesis and initiation of hemodialysis via permcat Referrals: Candice Rodriguez MD [Primary Care Provider, Urology] - 1 Week Discharge Medications: New lamotrigine 25 mg Tablet 50 mg PO BEDTIME 30 Days Qty: 60 0RF Continued atorvastatin 80 mg tablet 80 mg PO BEDTIME clonidine 0.2 mg/24 hr patch weekly 0.2 mg topical WE nifedipine 60 mg tablet extended release 24hr 60 mg PO DAILY amlodipine 10 mg tablet 10 mg PO DAILY pantoprazole 40 mg tablet,delayed release (DR/EC) 40 mg PO DAILY@0630 labetalol 100 mg tablet 100 mg PO TID calcitriol 0.25 mcg capsule 0.25 mcg PO DAILY insulin lispro 100 unit/mL insulin pen See Protocol subcut TIDAC Protocol: Insulin Correction Scale Less than or equal to 110 ---- Give (units): 0 111 to 150 Give (units): 0 151 to 200 Give (units): 2 201 to 250 Give (units): 4 251 to 300 Give (units): 6 301 to 350 Give (units): 8 Greater than 350 Give (units): 10 Call MD if Blood Glucose > : 350 budesonide-formoterol [Symbicort] 160-4.5 mcg/actuation HFA aerosol inhaler 1 - 2 puff inhalation Q4-6H PRN (Reason: dyspnea) insulin glargine [Lantus Solostar U-100 Insulin] 100 unit/mL (3 mL) insulin pen 24 unit subcut BEDTIME hydralazine 50 mg tablet 50 mg PO TID nicotine 14 mg/24 hr Patch 24 Hour 1 patch TRANSDERMAL DAILY PRN (Reason: Nicotine Cravings) nitroglycerin 0.3 mg Tablet, Sublingual 0.3 mg SUBLINGUAL Q5M PRN (Reason: Chest Pain) Rx Instructions: do not exceed 3 doses per episode divalproex 500 mg Tablet,Delayed Release (Dr/Ec) 500 mg PO BID acetaminophen 500 mg Tablet 500 mg PO Q6H PRN (Reason: Pain) baclofen 10 mg tablet 5 mg PO TID PRN (Reason: Muscle Spasm) bumetanide 1 mg tablet 1 mg PO BID quetiapine 50 mg tablet 50 mg PO BEDTIME duloxetine 60 mg Capsule,Delayed Release(Dr/Ec) 60 mg PO DAILY ferrous sulfate 325 mg (65 mg iron) Tablet 325 mg PO DAILY Changed lamotrigine 25 mg tablet 25 mg PO DAILY 30 Days Qty: 30 0RF Discharge Orders: Discharge Order (Routine); Ordered 05/11/25 Ordered By: Mayra Hoyos Diet: Advance to usual diet Activity on Discharge: As tolerated Stand Alone Forms: Patient Portal Discharge page Print Language: Maori Care Plan Goals: as above Health Concerns: as above Plan of Treatment: as per discharge document above Assessment: haemodynamcially stable to be discharged to [facility] with close follow up outpatient with nephrology, neurology, PCP
--- NOTE | 2025-05-11 14:25 | MHC.CM.PN ---
Patient has been medically cleared for dc to STR/SNF today. Patient will dc to [facility], with onsite HD, today at 4 PM, via [facility] trip # is [phone]). IMM was addressed with Patient and per Patient's request, CM left a detailed message for Daughter/HCP/Angelic at [phone], informing her of the dc plan.
== END 2025-05-11 17:02 | disposition skilled nursing facility (03) | DRG 674 ==
LOC: HO.ED 05-02 02:21 → HO.EDOVER 05-02 04:21 → HO.IMC 05-02 14:31 → HO.S3 05-05 17:10 → HO.IMC 05-09 08:08
PROVIDERS: Hospitalist; Internal Medicine; Internal Medicine Nephrology; Radiology Diagnostic Radiology; Admitting Provider Student in an Organized Health Care Education/Training Program; Emergency Provider Emergency Medicine Emergency Medical Services; PCP Urology; Visit Provider Hospitalist
PROC: 0W9B3ZZ Drainage of Left Pleural Cavity, Percutaneous Approach (ICD-10-PCS; principal; 2025-05-02 13:30)
PROC: 0JH63XZ Insertion of Tunneled Vascular Access Device into Chest Subcutaneous Tissue and Fascia, Percutaneous Approach (ICD-10-PCS; principal; 2025-05-05 09:00)
DX: I12.0 Hypertensive chronic kidney disease with stage 5 chronic kidney disease or end stage renal disease (principal); I69.354 Hemiplegia and hemiparesis following cerebral infarction affecting left non-dominant side; J91.8 Pleural effusion in other conditions classified elsewhere; J98.19 Other pulmonary collapse; G40.909 Epilepsy, unspecified, not intractable, without status epilepticus; N18.6 End stage renal disease; E11.22 Type 2 diabetes mellitus with diabetic chronic kidney disease; E78.5 Hyperlipidemia, unspecified; D63.1 Anemia in chronic kidney disease; N25.0 Renal osteodystrophy; R19.7 Diarrhea, unspecified; R22.32 Localized swelling, mass and lump, left upper limb; Z99.2 Dependence on renal dialysis; E11.649 Type 2 diabetes mellitus with hypoglycemia without coma; F17.210 Nicotine dependence, cigarettes, uncomplicated; Z20.822 Contact with and (suspected) exposure to COVID-19; Z71.6 Tobacco abuse counseling; Z79.4 Long term (current) use of insulin; Z79.899 Other long term (current) drug therapy
CPT/HCPCS: 32555; 36415; 36558; 71045; 71250; 76775; 76937; 80048; 80053; 80076; 80164; 81001; 82570; 82728; 82803; 82947; 83540; 83605; 83615; 83735; 83880; 83986; 84157; 84484; 85025; 85027; 85610; 86704; 86706; 86850; 86900; 86901; 87040; 87070; 87073; 87205; 87340; 87507; 87637; 89051; 90999; 93005; 93970; 93971; 94640; 97161; 97530; 99285; C1750; C1769; J0690; J0692; J1644; J2003; J2250; J2405; J2919; J3010; J3360; Q5106

== ENCOUNTER → 2025-05-01 23:56 | Outpatient (BNV) | payer OTHER, SELFPAY | PROVIDERS: Admitting Provider Student in an Organized Health Care Education/Training Program; Emergency Provider Emergency Medicine Emergency Medical Services; PCP Urology; Visit Provider Internal Medicine Cardiovascular Disease | DX: I49.9 Cardiac arrhythmia, unspecified (principal) | CPT/HCPCS: 93010 ==

== ENCOUNTER 2025-05-02 03:44 | Outpatient (BNV) | payer OTHER, SELFPAY | END 2025-05-05 09:04 | PROVIDERS: Admitting Provider Student in an Organized Health Care Education/Training Program; Emergency Provider Emergency Medicine Emergency Medical Services; PCP Urology; Visit Provider Radiology Diagnostic Radiology | DX: N18.6 End stage renal disease (principal); Z49.01 Encounter for fitting and adjustment of extracorporeal dialysis catheter | CPT/HCPCS: 36558; 76937 ==

== ENCOUNTER 2025-05-02 03:44 | Outpatient (BNV) | payer OTHER, SELFPAY | END 2025-05-04 15:53 | PROVIDERS: Admitting Provider Student in an Organized Health Care Education/Training Program; Emergency Provider Emergency Medicine Emergency Medical Services; PCP Urology; Visit Provider Radiology Diagnostic Radiology | DX: N17.9 Acute kidney failure, unspecified (principal) | CPT/HCPCS: 76775 ==

== ENCOUNTER 2025-05-02 03:44 | Outpatient (BNV) | payer OTHER, SELFPAY | END 2025-05-03 09:40 | PROVIDERS: Admitting Provider Student in an Organized Health Care Education/Training Program; Emergency Provider Emergency Medicine Emergency Medical Services; PCP Urology; Visit Provider Radiology Diagnostic Radiology | DX: R22.42 Localized swelling, mass and lump, left lower limb (principal) | CPT/HCPCS: 93970; 93971 ==

== ENCOUNTER → 2025-05-02 03:44 | Outpatient (BNV) | payer OTHER, SELFPAY | PROVIDERS: Admitting Provider Student in an Organized Health Care Education/Training Program; Emergency Provider Emergency Medicine Emergency Medical Services; PCP Urology; Visit Provider Student in an Organized Health Care Education/Training Program | DX: N18.5 Chronic kidney disease, stage 5 (principal); N17.9 Acute kidney failure, unspecified; E87.21 Acute metabolic acidosis | CPT/HCPCS: 99222; 99232; 99233; 99499 ==

== ENCOUNTER → 2025-05-02 03:44 | Outpatient (BNV) | payer OTHER, SELFPAY | PROVIDERS: Admitting Provider Student in an Organized Health Care Education/Training Program; Emergency Provider Emergency Medicine Emergency Medical Services; PCP Urology; Visit Provider Nurse Practitioner | DX: G40.909 Epilepsy, unspecified, not intractable, without status epilepticus (principal); G40.919 Epilepsy, unspecified, intractable, without status epilepticus | CPT/HCPCS: 99222 ==

== ENCOUNTER → 2025-05-02 | Outpatient (BNV) | payer OTHER, SELFPAY | PROVIDERS: Emergency Provider Emergency Medicine Emergency Medical Services; PCP Urology; Visit Provider Radiology Diagnostic Radiology | DX: J90 Pleural effusion, not elsewhere classified (principal); R06.02 Shortness of breath; R05.9 Cough, unspecified | CPT/HCPCS: 32555; 71045; 71250 ==

== ENCOUNTER 2025-05-18 06:53 | Outpatient (REF) | payer OTHER, SELFPAY ==
--- OUTSIDE RECORDS SUMMARY | 2025-05-18 06:55 | XMS_ITS | Encounter Summary ---
Author Organization [facility] Address [address] [place] [address] Care Team Providers Care Child Welfare Assistant Name Role Phone Polo Kay NP Primary Care Provider [phone]- [phone] Encounter Details Date Type Department Care Team (Late st Contact Info) Description 08/15/2024 Lab Requisition [facility] - Main Lab [address] [facility] [place] [id number] Lazaro Santoyo MD [address] [place] [address] Essential (primary) hypertension Social History Tobacco Use [...] STS ST LTG General No Ene Moffett, MUSICAL STRING MAKER Note: Pt will improve cognitive linguistic function to participate and communicate in basic ADLs supervision ST STGs General No Ene Moffett, MUSICAL STRING MAKER Note: Pt will participate with development of [...] mmol/L LAB CHEMISTRY METHOD 08/16/2024 10:32 AM [facility] Potassium 4.8 3.5 - 5.5 mmol/L LAB CHEMISTRY METHOD 08/16/2024 10:32 AM [facility] Chloride 105 96 - 110 mmol/L LAB CHEMISTRY METHOD 08/16/2024 10:32 AM [facility] CO2 22 21 - 32 mmol/L LAB CHEMISTRY METHOD 08/16/2024 10:32 AM [facility] Anion Gap 9 3 - 11 LAB CHEMISTRY METHOD 08/16/2024 10:32 AM [facility] Glucose 169(H) 70 - 100 mg/dL LAB CHEMISTRY METHOD 08/16/2024 10:32 AM [facility] BUN 28(H) 5 - 25 mg/dL LAB CHEMISTRY METHOD 08/16/2024 10:32 AM [facility] Creatinine 2.05(H) 0.50 - 1.10 mg/dL LAB CHEMISTRY METHOD 08/16/2024 10:32 AM [facility] eGFR 27(L) >=60 mL/min/1. 73m2 LAB CHEMISTRY METHOD 08/16/2024 10:32 AM [facility] Comment:Calculation based on the Chronic Kidney Disease Epidemiology Collaboration (CKD-EPI) equation refit without adjustment for race. BUN/Creatinine Ratio 13.7 LAB CHEMISTRY METHOD 08/16/2024 10:32 AM T [facility] Calcium 8.3(L) 8.5 - 10.5 mg/dL LAB CHEMISTRY METHOD 08/16/2024 10:32 AM [facility] Blood Venous blood specimen / Unknown Venipuncture / Unknown 08/16/2024 7:02 AM EDT 08/16/2024 9:39 AM EDT us Lazaro Santoyo MD LAB BLOOD ORDERABLES Final Resul t [facility] [address] [place] [address], * (ABNORMAL) Complete blood count (08/16/2024 7:02 AM EDT) WBC 6.4 4.8 - 10.8 K/mcL LAB HEMETOLOGY METHOD 08/16/2024 10:28 AM [facility] RBC 2.60(L) 3.80 - 4.80 M/mcL LAB HEMETOLOGY METHOD 08/16/2024 10:28 AM [facility] Hemoglobin 7.3(L) 11.5 - 16.0 g/dL LAB HEMETOLOGY METHOD 08/16/2024 10:28 AM [facility] Hematocrit 23.1(L) 35.0 - 47.0 % LAB HEMETOLOGY METHOD 08/16/2024 10:28 AM [facility] MCV 87.5 79.0 - 98.0 FL LAB HEMETOLOGY METHOD 08/16/2024 10:28 AM [facility] MCH 27.7 27.0 - 32.0 pcg LAB HEMETOLOGY METHOD 08/16/2024 10:28 AM [facility] MCHC 31.6(L) 32.0 - 37.0 g/dL LAB HEMETOLOGY METHOD 08/16/2024 10:28 AM EDT [facility] RDW 14.3 11.0 - 15.0 % LAB HEMETOLOGY METHOD 08/16/2024 10:28 AM EDT [facility] Platelets 301 130 - 400 K/mcL LAB HEMETOLOGY METHOD 08/16/2024 10:28 AM EDT [facility] MPV 9.9 7.0 - 11.0 FL LAB HEMETOLOGY METHOD 08/16/2024 10:28 AM EDT [facility] NRBC 0.0 <1.0 % LAB HEMETOLOGY METHOD 08/16/2024 10:28 AM EDT [facility] NRBC Absolute 0.00 <0.10 K/mcL LAB HEMETOLOGY METHOD 08/16/2024 10:28 AM EDT [facility] Blood Venous blood specimen / Unknown Venipuncture / Unknown 08/16/2024 7:02 AM EDT 08/16/2024 9:30 AM EDT us Lazaro Santoyo MD LAB BLOOD ORDERABLES Final Resul t [facility] [address] [place] [address], documented in this encounter Visit Diagnoses Diagnosis [...] documented as of this encounter Care Teams Child Welfare Assistant Relationship Specialty Start Date End Date Polo Kay NP [address] [place] [id number] PCP - General Nurse Practitioner 12/28/24 documented as of this encounter
--- OUTSIDE RECORDS SUMMARY | 2025-05-18 06:55 | XMS_ITS | Encounter Summary ---
Author Organization [facility] Address [address] [place] [address] Care Team Providers Care Lathe Operator Contact Lens Name Role Phone Polo Kay NP Primary Care Provider +1- [phone] Encounter Details Date Type Department Care Team (Late st Contact Info) Description 09/20/2024 Lab Requisition [facility] - Main Lab [address] [facility] [place] [phone] Lazaro Santoyo MD [address] [place] [address] Chronic kidney disease, stage 3 unspecified (CMS/HCC [...] care for your loved ones. For example, exceptional children teacher or elderly care for an [...] track( 025 2:03 PM EST) No Elena Wick OT Note: PROM L shldr elevation at [...] STS ST LTG General No Ene Moffett, TECHNICAL ARTIST Note: Pt will improve cognitive linguistic function to participate and communicate in basic ADLs supervision ST STGs General No Ene Moffett, TECHNICAL ARTIST Note: Pt will participate with development of [...] mmol/L LAB CHEMISTRY METHOD 09/20/2024 12:42 PM [facility] Potassium 4.6 3.5 - 5.5 mmol/L LAB CHEMISTRY METHOD 09/20/2024 12:42 PM [facility] Chloride 108 96 - 110 mmol/L LAB CHEMISTRY METHOD 09/20/2024 12:42 PM [facility] CO2 20(L) 21 - 32 mmol/L LAB CHEMISTRY METHOD 09/20/2024 12:42 PM [facility] Anion Gap 10 3 - 11 LAB CHEMISTRY METHOD 09/20/2024 12:42 PM [facility] Glucose 93 70 - 100 mg/dL LAB CHEMISTRY METHOD 09/20/2024 12:42 PM [facility] BUN 63(H) 5 - 25 mg/dL LAB CHEMISTRY METHOD 09/20/2024 12:42 PM [facility] Creatinine 3.19(H) 0.50 - 1.10 mg/dL LAB CHEMISTRY METHOD 09/20/2024 12:42 PM [facility] eGFR 16(L) >=60 mL/min/1. 73m2 LAB CHEMISTRY METHOD 09/20/2024 12:42 PM [facility] Comment:Calculation based on the Chronic Kidney Disease Epidemiology Collaboration (CKD-EPI) equation refit without adjustment for race. BUN/Creatinine Ratio 19.7 LAB CHEMISTRY METHOD 09/20/2024 12:42 PM [facility] Calcium 8.4(L) 8.5 - 10.5 mg/dL LAB CHEMISTRY METHOD 09/20/2024 12:42 PM [facility] Blood Venous blood specimen / Unknown Venipuncture / Unknown 09/20/2024 7:21 AM EDT 09/20/2024 11:00 AM EDT Lazaro Santoyo MD LAB BLOOD ORDERABLES Final Resul t [facility] [address] [place] [address], * (ABNORMAL) Complete blood count (09/20/2024 7:21 AM EDT) WBC 10.0 4.8 - 10.8 K/mcL LAB HEMETOLOGY METHOD 09/20/2024 11:29 AM EDT [facility] RBC 2.60(L) 3.80 - 4.80 M/mcL LAB HEMETOLOGY METHOD 09/20/2024 11:29 AM EDT [facility] Hemoglobin 7.5(L) 11.5 - 16.0 g/dL LAB HEMETOLOGY METHOD 09/20/2024 11:29 AM [facility] Hematocrit 23.8(L) 35.0 - 47.0 % LAB HEMETOLOGY METHOD [facility]24 [facility] MCV 91.5 79.0 - 98.0 FL LAB HEMETOLOGY METHOD 09/20[facility]2024 [facility] MCH 28.8 27.0 - 32.0 pcg LAB HEMETOLOGY METHOD 09/20/2024 11:29 AM [facility] MCHC 31.5(L) 32.0 - 37.0 g/dL LAB HEMETOLOGY METHOD 09/20[facility]2024 11[facility] RDW 15.9(H) 11.0 - 15.0 % LAB HEMETOLOGY METHOD 09/20/2024 11:29 [facility] Platelets 167 130 - 400 K/mcL LAB HEMETOLOGY METHOD 09/20/2024 11:29 AM [facility] MPV 10.1 7.0 - 11.0 FL LAB HEMETOLOGY METHOD 09/20/2024 11:29 AM EDT [facility] NRBC 0.0 <1.0 % LAB HEMETOLOGY METHOD 09/20/2024 11:29 AM EDT [facility] NRBC Absolute 0.00 <0.10 K/mcL LAB HEMETOLOGY METHOD 09/20/2024 11:29 AM EDT [facility] Blood Venous blood specimen / Unknown Venipuncture / Unknown 09/20/2024 7:21 AM EDT 09/20/2024 11:00 AM EDT us Lazaro Santoyo MD LAB BLOOD ORDERABLES Final Resul t [facility] [address] [place] [address], documented in this encounter Visit Diagnoses Diagnosis Chronic kidney disease, stage 3 unspecified (CMS/[facility] V24, CMS/[facility] V28) documented in this encounter Additional [...] documented as of this encounter Care Teams Lathe Operator Contact Lens Relationship Specialty Start Date End Date Polo Kay NP [facility] [place] [address] PCP - General Nurse Practitioner 12/28/24 documented as of this encounter
--- OUTSIDE RECORDS SUMMARY | 2025-05-18 06:55 | XMS_ITS | Encounter Summary ---
Author Organization [facility] Address [address] [place] [address] Care Team Providers Care Channeling Machine Operator Name Role Phone Polo Kay NP Primary Care Provider +1- [phone] Encounter Details Date Type Department Care Team (Late st Contact Info) Description 09/01/2024 Lab Requisition [facility] - Main Lab [address] [place] [phone] Lazaro Santoyo MD [address] [place] [address] Chronic kidney disease, unspecified; Essential (primary) hypertension; [...] for your loved ones. For example, child welfare director or elderly care for an older [...] of Assessment Author Yes 08/18/2024 9:12 PM EDAllyson Rodrigez RN * Do you have serious difficulty [...] STS ST LTG General No Ene Moffett, FRONT LINE SUPERVISOR Note: Pt will improve cognitive linguistic function to participate and communicate in basic ADLs supervision ST STGs General No Ene Moffett, FRONT LINE SUPERVISOR Note: Pt will participate with development of [...] mellitus without complications (CMS/HCC V24, CMS/HCC V28) HEPATIC FUNCTION PANEL Routine 09/02/2024 5:41 AM EDT Chronic kidney disease, unspecified Essential (primary) hypertension Type 2 diabetes mellitus without complications (CMS/HCC V24, CMS/HCC V28) BASIC METABOLIC PANEL Routine 09/02/2024 5:41 AM EDT Chronic kidney disease, unspecified Essential (primary) hypertension Type 2 diabetes mellitus without complications ([facility]/HCC V24, [facility]/HCC V28) documented in this encounter Results * (ABNORMAL) Hepatic function panel (09/02/2024 5:41 AM EDT) Total Protein 5.0(L) 6.0 - 8.0 g/dL LAB CHEMISTRY METHOD 09/02/2024 9:08 AM T [facility] Albumin 2.3(L) 3.2 - 5.0 g/dL LAB CHEMISTRY METHOD 09/02/2024 9:08 AM [facility] Total Bilirubin 0.3 0.0 - 1.4 mg/dL LAB CHEMISTRY METHOD 09/02/2024 9:08 AM [facility] LAB Bilirubin, Direct <0.1 0.0 - 0.3 mg/dL LAB CHEMISTRY METHOD 09/02/2024 9:08 AM [facility] Bilirubin, Indirect LAB CHEMISTRY METHOD 09/02/2024 9:08 AM [facility] LAB Comment:Unable to calculate Indirect Bilirubin. ALT (SGPT) 9(L) 10 - 60 unit/L LAB CHEMISTRY METHOD 09/02/2024 9:08 AM [facility] AST (SGOT) 8(L) 10 - 42 unit/L LAB CHEMISTRY METHOD 09/02/2024 9:08 AM [facility] Alkaline Phosphatase 76 42 - 121 unit/L LAB CHEMISTRY METHOD 09/02/2024 9:08 AM [facility] LAB Blood Venous blood specimen / Unknown Venipuncture / Unknown 09/02/2024 5:41 AM EDT 09/02/2024 8:15 AM EDT us Lazaro Santoyo MD LAB BLOOD ORDERABLES Final Resul t [facility] LAB [address] [place] [address], * (ABNORMAL) Basic metabolic panel (09/02/2024 5:41 AM EDT) Sodium 134 133 - 145 mmol/L LAB CHEMISTRY METHOD 09/02/2024 9:08 AM [facility] Potassium 5.4 3.5 - 5.5 mmol/L LAB CHEMISTRY METHOD 09/02/2024 9:08 AM [facility] Chloride 105 96 - 110 mmol/L LAB CHEMISTRY METHOD 09/02/2024 9:08 AM [facility] CO2 20(L) 21 - 32 mmol/L LAB CHEMISTRY METHOD 09/02/2024 9:08 AM [facility] Anion Gap 9 3 - 11 LAB CHEMISTRY METHOD 09/02/2024 9:08 AM [facility] Glucose 144(H) 70 - 100 mg/dL LAB CHEMISTRY METHOD 09/02/2024 9:08 AM [facility] BUN 55(H) 5 - 25 mg/dL LAB CHEMISTRY METHOD 09/02/2024 9:08 AM [facility] Creatinine 3.44(H) 0.50 - 1.10 mg/dL LAB CHEMISTRY METHOD 09/02/2024 9:08 AM [facility] LAB eGFR 15(L) >=60 mL/min/1. 73m2 LAB CHEMISTRY METHOD 09/02/2024 9:08 AM [facility] LAB Comment:Calculation based on the Chronic Kidney Disease Epidemiology Collaboration (CKD-EPI) equation refit without adjustment for race. BUN/Creatinine Ratio 16.0 LAB CHEMISTRY METHOD 09/02/2024 9:08 AM [facility] Calcium 7.8(L) 8.5 - 10.5 mg/dL LAB CHEMISTRY METHOD 09/02/2024 9:08 AM [facility] Blood Venous blood specimen / Unknown Venipuncture / Unknown 09/02/2024 5:41 AM EDT 09/02/2024 8:15 AM EDT us Lazrao Santoyo MD LAB BLOOD ORDERABLES Final Resul t [facility] [address] [place] [address], * (ABNORMAL) Complete blood count (09/02/2024 5:41 AM EDT) WBC 5.5 4.8 - 10.8 K/mcL LAB HEMETOLOGY METHOD 09/02/2024 8:41 AM [facility] RBC 2.30(L) 3.80 - 4.80 M/mcL LAB HEMETOLOGY METHOD 09/02/2024 8:41 AM [facility] Hemoglobin 6.6(L) 11.5 - 16.0 g/dL LAB HEMETOLOGY METHOD 09/02/2024 8:41 AM [facility] Hematocrit 20.9(L) 35.0 - 47.0 % LAB HEMETOLOGY METHOD 09/02/2024 8:41 AM [facility] LAB MCV 89.3 79.0 - 98.0 FL LAB HEMETOLOGY METHOD 09/02/2024 8:41 AM [facility] LAB MCH 28.2 27.0 - 32.0 pcg LAB HEMETOLOGY METHOD 09/02/2024 8:41 AM [facility] LAB MCHC 31.6(L) 32.0 - 37.0 g/dL LAB HEMETOLOGY METHOD 09/02/2024 8:41 AM [facility] LAB RDW 15.6(H) 11.0 - 15.0 % LAB HEMETOLOGY METHOD 09/02/2024 8:41 AM [facility] LAB Platelets 192 130 - 400 K/mcL LAB HEMETOLOGY METHOD 09/02/2024 8:41 AM EDT [facility] LAB MPV 10.5 7.0 - 11.0 FL LAB HEMETOLOGY METHOD 09/02/2024 8:41 AM EDT [facility] LAB NRBC 0.0 <1.0 % LAB HEMETOLOGY METHOD 09/02/2024 8:41 AM EDT [facility] LAB NRBC Absolute 0.00 <0.10 K/mcL LAB HEMETOLOGY METHOD 09/02/2024 8:41 AM EDT [facility] LAB Blood Venous blood specimen / Unknown Venipuncture / Unknown 09/02/2024 5:41 AM EDT 09/02/2024 8:13 AM EDT us Lazaro Santoyo MD LAB BLOOD ORDERABLES Final Resul t [facility] LAB [address] [place] [address], documented in this encounter Visit Diagnoses Diagnosis Chronic kidney disease, unspecified Essential (primary) hypertension Unspecified essential hypertension Type 2 diabetes mellitus without complications (CMS/[facility] V24, CMS/[facility] V28) documented in this encounter Additional Health [...] documented as of this encounter Care Teams Channeling Machine Operator Relationship Specialty Start Date End Date Polo Kay NP [address] [place] [address] PCP - General Nurse Practitioner 12/28/24 documented as of this encounter
--- OUTSIDE RECORDS SUMMARY | 2025-05-18 06:55 | XMS_ITS | Encounter Summary ---
Author Organization [facility] Address [address] [place] [address] Care Team Providers Care Alberene Stone Setter Name Role Phone Polo Kay NP Primary Care Provider +1- [phone] Encounter Details Date Type Department Care Team (Late st Contact Info) Description 09/14/2024 Lab Requisition [facility] - Main Lab [address] [place] [phone] Lazaro Santoyo MD [address] [place] [address] Other malaise Social History Tobacco Use Types [...] STS ST LTG General No Ene Moffett, MACHINE WOODWORKING SANDER Note: Pt will improve cognitive linguistic function to participate and communicate in basic ADLs supervision ST STGs General No Ene Moffett, MACHINE WOODWORKING SANDER Note: Pt will participate with development of [...] AM EDT) WBC 10.0 4.8 - 10.8 K/[facility] LAB HEMETOLOGY METHOD 09/15/2024 10:09 AM [facility] LAB RBC 2.60(L) 3.80 - 4.80 M/mcL LAB HEMETOLOGY METHOD 09/15/2024 10:09 AM [facility] LAB Hemoglobin 7.4(L) 11.5 - 16.0 g/dL LAB HEMETOLOGY METHOD 09/15/2024 10:09 AM [facility] LAB Hematocrit 23.3(L) 35.0 - 47.0 % LAB HEMETOLOGY METHOD 09/15/2024 10:09 AM [facility] LAB MCV 90.0 79.0 - 98.0 FL LAB HEMETOLOGY METHOD 09/15/2024 10:09 AM [facility] LAB MCH 28.6 27.0 - 32.0 pcg LAB HEMETOLOGY METHOD 09/15/2024 10:09 AM [facility] LAB MCHC 31.8(L) 32.0 - 37.0 g/dL LAB HEMETOLOGY METHOD 09/15/2024 10:09 AM [facility] LAB RDW 15.7(H) 11.0 - 15.0 % LAB HEMETOLOGY METHOD 09/15/2024 10:09 AM [facility] LAB Platelets 164 130 - 400 K/mcL LAB HEMETOLOGY METHOD 09/15/2024 10:09 AM [facility] LAB MPV 9.5 7.0 - 11.0 FL LAB HEMETOLOGY METHOD 09/15/2024 10:09 AM [facility] LAB NRBC 0.0 <1.0 % LAB HEMETOLOGY METHOD 09/15/2024 10:09 AM [facility] LAB NRBC Absolute 0.00 <0.10 K/mcL LAB HEMETOLOGY METHOD 09/15/2024 10:09 AM [facility] LAB Neutrophils Relative 70.2 % LAB HEMETOLOGY METHOD 09/15/2024 10:09 AM [facility] Lymphocytes Relative 15.6 % LAB HEMETOLOGY METHOD 09/15/2024 10:09 AM [facility] Monocytes Relative 10.5 % LAB HEMETOLOGY METHOD 09/15/2024 10:09 AM [facility] Eosinophils Relative 2.4 % LAB HEMETOLOGY METHOD 09/15/2024 10:09 AM [facility] Basophils Relative 0.4 % LAB HEMETOLOGY METHOD 09/15/2024 10:09 AM [facility] Immature Granulocytes Relative 0.9 % LAB HEMETOLOGY METHOD 09/15/2024 10:09 AM [facility] LAB Neutrophils Absolute 7.01(H) 1.50 - 7.00 K/mcL LAB HEMETOLOGY METHOD 09/15/2024 10:09 AM [facility] Lymphocytes Absolute 1.56 1.00 - 5.00 K/mcL LAB HEMETOLOGY METHOD 09/15/2024 10:09 AM [facility] Monocytes Absolute 1.05(H) 0.20 - 1.00 K/mcL LAB HEMETOLOGY METHOD 09/15/2024 10:09 AM [facility] Eosinophils Absolute 0.24 0.00 - 0.50 K/mcL LAB HEMETOLOGY METHOD 09/15/2024 10:09 AM [facility] Basophils Absolute 0.04 0.00 - 0.20 K/mcL LAB HEMETOLOGY METHOD 09/15/2024 10:09 AM [facility] LAB Immature Granulocytes Absolute 0.09(H) 0.00 - 0.03 K/mcL LAB HEMETOLOGY METHOD 09/15/2024 10:09 AM [facility] Blood Venous blood specimen / Unknown Venipuncture / Unknown 09/15/2024 6:34 AM EDT 09/15/2024 9:31 AM EDT Lazaro Santoyo MD LAB BLOOD ORDERABLES Final Resul t [facility] [address] [place] [address], [place] [phone] * (ABNORMAL) Basic metabolic panel (09/15/2024 6:34 AM EDT) [facility] Sodium 139 133 - 145 mmol/L LAB CHEMISTRY METHOD 09/15/2024 10:36 AM [facility] Potassium 4.3 3.5 - 5.5 mmol/L LAB CHEMISTRY METHOD 09/15/2024 10:36 AM [facility] Chloride 107 96 - 110 mmol/L LAB CHEMISTRY METHOD 09/15/2024 10:36 AM [facility] CO2 20(L) 21 - 32 mmol/L LAB CHEMISTRY METHOD 09/15/2024 10:36 AM [facility] Anion Gap 12(H) 3 - 11 LAB CHEMISTRY METHOD 09/15/2024 10:36 AM [facility] Glucose 161(H) 70 - 100 mg/dL LAB CHEMISTRY METHOD 09/15/2024 10:36 AM [facility] BUN 51(H) 5 - 25 mg/dL LAB CHEMISTRY METHOD 09/15/2024 10:36 AM [facility] Creatinine 3.34(H) 0.50 - 1.10 mg/dL LAB CHEMISTRY METHOD 09/15/2024 10:36 AM [facility] LAB eGFR 15(L) >=60 mL/min/1. 73m2 LAB CHEMISTRY METHOD 09/15/2024 10:36 AM [facility] LAB Comment:Calculation based on the Chronic Kidney Disease Epidemiology Collaboration (CKD-EPI) equation refit without adjustment for race. BUN/Creatinine Ratio 15.3 LAB CHEMISTRY METHOD 09/15/2024 10:[address] [facility] Calcium 8.1(L) 8.5 - 10.5 mg/dL LAB CHEMISTRY METHOD 09/15/2024 10:[address] [facility] Blood Venous blood specimen / Unknown Venipuncture / Unknown 09/15/2024 6:34 AM EDT 09/15/2024 9:31 AM EDT us Lazaro Santoyo MD LAB BLOOD ORDERABLES Final Resul t [facility] [address] [place] [address], documented in this encounter Visit Diagnoses Diagnosis [...] documented as of this encounter Care Teams Alberene Stone Setter Relationship Specialty Start Date End Date Polo Kay NP [address] [place] [address] PCP - General Nurse Practitioner 12/28/24 documented as of this encounter
--- OUTSIDE RECORDS SUMMARY | 2025-05-18 06:55 | XMS_ITS | Encounter Summary ---
Author Organization [facility] Address [address] [place] [address] Care Team Providers Care Rigging Up Worker Name Role Phone Polo Kay NP Primary Care Provider +1- [phone] Encounter Details Date Type Department Care Team (Late st Contact Info) Description 09/14/2024 Lab Requisition [facility] - Main Lab [address] [place] [phone] Lazaro Santoyo MD [address] [place] [address] Chronic kidney disease, stage 3 unspecified (CMS/HCC [...] for your loved ones. For example, child health associate or elderly care for an older adult? [...] STS ST LTG General No Ene Moffett, FRETTED INSTRUMENT MAKER HAND Note: Pt will improve cognitive linguistic function to participate and communicate in basic ADLs supervision ST STGs General No Ene Moffett, FRETTED INSTRUMENT MAKER HAND Note: Pt will participate with development of [...] mmol/L LAB CHEMISTRY METHOD 09/14/2024 12:35 PM [facility] Chloride 106 96 - 110 mmol/L LAB CHEMISTRY METHOD 09/14/2024 12:35 PM [facility] CO2 22 21 - 32 mmol/L LAB CHEMISTRY METHOD 09/14/2024 12:35 PM [facility] Anion Gap 12(H) 3 - 11 LAB CHEMISTRY METHOD 09/14/2024 12:35 PM [facility] Glucose 156(H) 70 - 100 mg/dL LAB CHEMISTRY METHOD 09/14/2024 12:35 PM [facility] BUN 48(H) 5 - 25 mg/dL LAB CHEMISTRY METHOD 09/14/2024 12:35 PM [facility] Creatinine 3.50(H) 0.50 - 1.10 mg/dL LAB CHEMISTRY METHOD 09/14/2024 12:35 PM [facility] LAB eGFR 14(L) >=60 mL/min/1. 73m2 LAB CHEMISTRY METHOD 09/14/2024 12:35 PM [facility] Comment:Calculation based on the Chronic Kidney Disease Epidemiology Collaboration (CKD-EPI) equation refit without adjustment for race. BUN/Creatinine Ratio 13.7 LAB CHEMISTRY METHOD 09/14/2024 12:35 PM [facility] Calcium 8.3(L) 8.5 - 10.5 mg/dL LAB CHEMISTRY METHOD 09/14/2024 12:35 PM [facility] Blood Venous blood specimen / Unknown Venipuncture / Unknown 09/14/2024 8:09 AM EDT 09/14/2024 9:36 AM EDT us Lazaro Santoyo MD LAB BLOOD ORDERABLES Final Resul t [facility] [address] [place], [place] [address] [phone] documented in this encounter Visit Diagnoses Diagnosis Chronic kidney disease, stage 3 unspecified ([facility] V24, [facility] V28) documented in this encounter Additional Health [...] documented as of this encounter Care Teams Rigging Up Worker Relationship Specialty Start Date End Date Polo Kay NP [address] [place] [address] PCP - General Nurse Practitioner 12/28/24 documented as of this encounter
--- OUTSIDE RECORDS SUMMARY | 2025-05-18 06:55 | XMS_ITS | Encounter Summary ---
Author Organization [facility] Address [address] [place] [address] Care Team Providers Care Continuous Washer Operator Name Role Phone Polo Kay NP Primary Care Provider +1- [phone] Encounter Details Date Type Department Care Team (Late st Contact Info) Description 09/13/2024 Lab Requisition [facility] - Main Lab [address] [facility] [place] [phone] Lazaro Santoyo MD [address] [place] [address] Other malaise Social History Tobacco Use Types [...] for your loved ones. For example, children's zoo caretaker or elderly care for an older adult? [...] STS ST LTG General No Ene Moffett, DELIVERY AND INSTALLATION SUBCONTRACTOR Note: Pt will improve cognitive linguistic function to participate and communicate in basic ADLs supervision ST STGs General No Ene Moffett, DELIVERY AND INSTALLATION SUBCONTRACTOR Note: Pt will participate with development of [...] AM EDT) WBC 6.0 4.8 - 10.8 /[facility] LAB HEMETOLOGY METHOD 09/13/2024 11:07 AM [facility] LAB RBC 3.10(L) 3.80 - 4.80 M/mcL LAB HEMETOLOGY METHOD 09/13/2024 11:07 AM [facility] LAB Hemoglobin 9.0(L) 11.5 - 16.0 g/dL LAB HEMETOLOGY METHOD 09/13/2024 11:07 AM [facility] LAB Hematocrit 28.2(L) 35.0 - 47.0 % LAB HEMETOLOGY METHOD 09/13/2024 11:07 AM [facility] LAB MCV 91.0 79.0 - 98.0 FL LAB HEMETOLOGY METHOD 09/13/2024 11:07 AM [facility] LAB MCH 29.0 27.0 - 32.0 pcg LAB HEMETOLOGY METHOD 09/13/2024 11:07 AM [facility] LAB MCHC 31.9(L) 32.0 - 37.0 g/dL LAB HEMETOLOGY METHOD 09/13/2024 11:07 AM [facility] LAB RDW 15.7(H) 11.0 - 15.0 % LAB HEMETOLOGY METHOD 09/13/2024 11:07 AM [facility] LAB Platelets 192 130 - 400 K/mcL LAB HEMETOLOGY METHOD 09/13/2024 11:07 AM [facility] LAB MPV 9.6 7.0 - 11.0 FL LAB HEMETOLOGY METHOD 09/13/2024 11:07 AM [facility] LAB NRBC 0.0 <1.0 % LAB HEMETOLOGY METHOD 09/13/2024 11:07 AM [facility] LAB NRBC Absolute 0.00 <0.10 K/mcL LAB HEMETOLOGY METHOD 09/13/2024 11:07 AM [facility] LAB Neutrophils Relative 64.4 % LAB HEMETOLOGY METHOD 09/13/2024 11:07 AM [facility] Lymphocytes Relative 19.0 % LAB HEMETOLOGY METHOD 09/13/2024 11:07 AM [facility] Monocytes Relative 11.8 % LAB HEMETOLOGY METHOD 09/13/2024 11:07 AM [facility] Eosinophils Relative 3.3 % LAB HEMETOLOGY METHOD 09/13/2024 11:07 AM [facility] Basophils Relative 0.7 % LAB HEMETOLOGY METHOD 09/13/2024 11:07 AM [facility] LAB Immature Granulocytes Relative 0.8 % LAB HEMETOLOGY METHOD 09/13/2024 11:07 AM [facility] LAB Neutrophils Absolute 3.87 1.50 - 7.00 K/mcL LAB HEMETOLOGY METHOD 09/13/2024 11:07 AM [facility] LAB Lymphocytes Absolute 1.14 1.00 - 5.00 K/mcL LAB HEMETOLOGY METHOD 09/13/2024 11:07 AM [facility] Monocytes Absolute 0.71 0.20 - 1.00 K/mcL LAB HEMETOLOGY METHOD 09/13/2024 11:07 AM [facility] LAB Eosinophils Absolute 0.20 0.00 - 0.50 K/mcL LAB HEMETOLOGY METHOD 09/13/2024 11:07 AM [facility] Basophils Absolute 0.04 0.00 - 0.20 K/mcL LAB HEMETOLOGY METHOD 09/13/2024 11:07 AM [facility] LAB Immature Granulocytes Absolute 0.05(H) 0.00 - 0.03 K/mcL LAB HEMETOLOGY METHOD 09/13/2024 11:07 AM [facility] LAB Blood Venous blood specimen / Unknown Venipuncture / Unknown 09/13/2024 7:13 AM EDT 09/13/2024 10:18 AM EDT us Lazaro Santoyo MD LAB BLOOD ORDERABLES Final Resul t [facility] [address] [place] [address], [place] [phone] * (ABNORMAL) Basic metabolic panel (09/13/2024 7:13 AM EDT) Sodium 140 133 - 145 mmol/L LAB CHEMISTRY METHOD 09/13/2024 2:31 PM EDT [facility] Potassium 4.5 3.5 - 5.5 mmol/L LAB CHEMISTRY METHOD 09/13/2024 2:31 PM [facility] Chloride 107 96 - 110 mmol/L LAB CHEMISTRY METHOD 09/13/2024 2:31 PM [facility] CO2 24 21 - 32 mmol/L LAB CHEMISTRY METHOD 09/13/2024 2:31 PM [facility] Anion Gap 9 3 - 11 LAB CHEMISTRY METHOD 09/13/2024 2:31 PM [facility] Glucose 147(H) 70 - 100 mg/dL LAB CHEMISTRY METHOD 09/13/2024 2:31 PM [facility] BUN 53(H) 5 - 25 mg/dL LAB CHEMISTRY METHOD 09/13/2024 2:31 PM [facility] Creatinine 3.62(H) 0.50 - 1.10 mg/dL LAB CHEMISTRY METHOD 09/13/2024 2:31 PM [facility] LAB eGFR 14(L) >=60 mL/min/1. 73m2 LAB CHEMISTRY METHOD 09/13/2024 2:31 PM [facility] Comment:Calculation based on the Chronic Kidney Disease Epidemiology Collaboration (CKD-EPI) equation refit without adjustment for race. BUN/Creatinine Ratio 14.6 LAB CHEMISTRY METHOD 09/13/2024 2:31 PM EDT [facility] Calcium 8.1(L) 8.5 - 10.5 mg/dL LAB CHEMISTRY METHOD 09/13/2024 2:31 PM EDT [facility] Blood Venous blood specimen / Unknown Venipuncture / Unknown 09/13/2024 7:13 AM EDT 09/13/2024 10:18 AM EDT us Lazaro Santoyo MD LAB BLOOD ORDERABLES Final Resul t [facility] [address] [place] [address], documented in this encounter Visit Diagnoses Diagnosis [...] documented as of this encounter Care Teams Continuous Washer Operator Relationship Specialty Start Date End Date Polo Kay NP [address] [place] [address] PCP - General Nurse Practitioner 12/28/24 documented as of this encounter
--- OUTSIDE RECORDS SUMMARY | 2025-05-18 06:55 | XMS_ITS | Encounter Summary ---
Author Organization [facility] Address [address] [place] [address] Care Team Providers Care Electrolysis Engineer Name Role Phone Polo Kay NP Primary Care Provider +1- [phone] Encounter Details Date Type Department Care Team (Late st Contact Info) Description 06/30/2024 Lab Requisition [facility] - Main Lab 299 [facility] [place] [phone] Lazaro Santoyo MD [address] [place] [address] Essential (primary) hypertension; Urinary tract infection, site [...] STS ST LTG General No Ene Moffett, INDUCTION FURNACE OPERATOR Note: Pt will improve cognitive linguistic function to participate and communicate in basic ADLs supervision ST STGs General No Ene Moffett, INDUCTION FURNACE OPERATOR Note: Pt will participate with development [...] K/mcL LAB HEMETOLOGY METHOD 07/01/2024 10:42 AM [facility] RBC 2.70(L) 3.80 - 4.80 M/mcL LAB HEMETOLOGY METHOD 07/01/2024 10:42 AM [facility] Hemoglobin 7.6(L) 11.5 - 16.0 g/dL LAB HEMETOLOGY METHOD 07/01/2024 10:42 AM [facility] LAB Hematocrit 23.3(L) 35.0 - 47.0 % LAB HEMETOLOGY METHOD 07/01/2024 10:42 AM [facility] MCV 87.9 79.0 - 98.0 FL LAB HEMETOLOGY METHOD 07/01/2024 10:42 AM [facility] MCH 28.7 27.0 - 32.0 pcg LAB HEMETOLOGY METHOD 07/01/2024 10:42 AM [facility] LAB MCHC 32.6 32.0 - 37.0 g/dL LAB HEMETOLOGY METHOD 07/01/2024 10:42 AM [facility] RDW 13.6 11.0 - 15.0 % LAB HEMETOLOGY METHOD 07/01/2024 10:42 AM [facility] LAB Platelets 276 130 - 400 K/mcL LAB HEMETOLOGY METHOD 07/01/2024 10:42 AM EST [facility] MPV 10.0 7.0 - 11.0 FL LAB HEMETOLOGY METHOD 07/01/2024 10:42 AM EST [facility] NRBC 0.0 <1.0 % LAB HEMETOLOGY METHOD 07/01/2024 10:42 AM EST [facility] NRBC Absolute 0.00 <0.10 K/mcL LAB HEMETOLOGY METHOD 07/01/2024 10:42 AM EST [facility] Blood Venous blood specimen / Unknown 07/01/2024 7:34 AM EST 07/01/2024 9:20 AM EST us Lazaro Santoyo MD LAB BLOOD ORDERABLES Final Resul t [facility] [address] [place] [address], * (ABNORMAL) Basic metabolic panel (07/01/2024 7:34 AM EST) Sodium 137 133 - 145 mmol/L LAB CHEMISTRY METHOD 07/01/2024 11:04 AM [facility] Potassium 4.3 3.5 - 5.5 mmol/L LAB CHEMISTRY METHOD 07/01/2024 11:04 AM [facility] Chloride 107 96 - 110 mmol/L LAB CHEMISTRY METHOD 07/01/2024 11:04 AM [facility] CO2 24 21 - 32 mmol/L LAB CHEMISTRY METHOD 07/01/2024 11:04 AM [facility] Anion Gap 6 3 - 11 LAB CHEMISTRY METHOD 07/01/2024 11:04 AM [facility] Glucose 117(H) 70 - 100 mg/dL LAB CHEMISTRY METHOD 07/01/2024 11:04 AM [facility] BUN 42(H) 5 - 25 mg/dL LAB CHEMISTRY METHOD 07/01/2024 11:04 AM [facility] Creatinine 2.14(H) 0.50 - 1.10 mg/dL LAB CHEMISTRY METHOD 07/01/2024 11:04 AM [facility] eGFR 26(L) >=60 mL/min/1. 73m2 LAB CHEMISTRY METHOD 07/01/2024 11:04 AM [facility] Comment:Calculation based on the Chronic Kidney Disease Epidemiology Collaboration (CKD-EPI) equation refit without adjustment for race. BUN/Creatinine Ratio 19.6 LAB CHEMISTRY METHOD 07/01/2024 11:04 AM [facility] Calcium 8.5 8.5 - 10.5 mg/dL LAB CHEMISTRY METHOD 07/01/2024 11:04 AM [facility] Blood Venous blood specimen / Unknown Venipuncture / Unknown 07/01/2024 7:34 AM EST 07/01/2024 9:18 AM EST us Lazaro Santoyo MD LAB BLOOD ORDERABLES Final Resul t [facility] [address] [place] [address], documented in this encounter Visit Diagnoses Diagnosis [...] documented as of this encounter Care Teams Electrolysis Engineer Relationship Specialty Start Date End Date Polo Kay NP [address] [place] [address] PCP - General Nurse Practitioner 12/28/24 documented as of this encounter
--- OUTSIDE RECORDS SUMMARY | 2025-05-18 06:55 | XMS_ITS | Encounter Summary ---
Author Organization [facility] Address [address] [place] [address] Care Team Providers Care Gun Stocker Name Role Phone Polo Kay NP Primary Care Provider +1- [phone] Encounter Details Date Type Department Care Team (Late st Contact Info) Description 08/27/2024 Lab Requisition [facility] - Main Lab 299 [facility] [place] [phone] Lazaro Santoyo MD [address] [place] [address] Essential (primary) hypertension; Weakness Social History Tobacco [...] your loved ones. For example, child care director or elderly care for an older [...] STS ST LTG General No Ene Moffett, LEARNING AND DEVELOPMENT INTERN Note: Pt will improve cognitive linguistic function to participate and communicate in basic ADLs supervision ST STGs General No Ene Moffett, LEARNING AND DEVELOPMENT INTERN Note: Pt will participate with development of [...] AM EDT) WBC 6.7 4.8 - 10.8 K/[facility] LAB HEMETOLOGY METHOD 08/30/2024 11:08 AM EDT [facility] RBC 2.40(L) 3.80 - 4.80 M/[facility] LAB HEMETOLOGY METHOD 08/30/2024 11:08 AM [facility] Hemoglobin 6.8(L) 11.5 - 16.0 g/dL LAB HEMETOLOGY METHOD 08/30/2024 11:08 AM [facility] Hematocrit 21.7(L) 35.0 - 47.0 % LAB HEMETOLOGY METHOD 08/30/2024 11:08 AM [facility] MCV 90.0 79.0 - 98.0 FL LAB HEMETOLOGY METHOD 08/30/2024 11:08 AM [facility] MCH 28.2 27.0 - 32.0 pcg LAB HEMETOLOGY METHOD 08/30/2024 11:08 AM [facility] LAB MCHC 31.3(L) 32.0 - 37.0 g/dL LAB HEMETOLOGY METHOD 08/30/2024 11:08 AM [facility] RDW 15.5(H) 11.0 - 15.0 % LAB HEMETOLOGY METHOD 08/30/2024 11:08 AM [facility] Platelets 198 130 - 400 K/mcL LAB HEMETOLOGY METHOD 08/30/2024 11:08 AM [facility] MPV 10.4 7.0 - 11.0 FL LAB HEMETOLOGY METHOD 08/30/2024 11:08 AM [facility] NRBC 0.0 <1.0 % LAB HEMETOLOGY METHOD 08/30/2024 11:08 AM [facility] NRBC Absolute 0.00 <0.10 K/mcL LAB HEMETOLOGY METHOD 08/30/2024 11:08 AM [facility] Blood Venous blood specimen / Unknown Venipuncture / Unknown 08/30/2024 7:03 AM EDT 08/30/2024 9:42 AM EDT Lazaro Santoyo MD LAB BLOOD ORDERABLES Final Resul t [facility] [address] [place] [address], * (ABNORMAL) Basic metabolic panel (08/30/2024 7:03 AM EDT) Sodium 136 133 - 145 mmol/L LAB CHEMISTRY METHOD 08/30/2024 11:26 AM [facility] Potassium 5.2 3.5 - 5.5 mmol/L LAB CHEMISTRY METHOD 08/30/2024 11:26 AM [facility] Chloride 107 96 - 110 mmol/L LAB CHEMISTRY METHOD 08/30/2024 11:26 AM [facility] CO2 21 21 - 32 mmol/L LAB CHEMISTRY METHOD 08/30/2024 11:26 AM [facility] Anion Gap 8 3 - 11 LAB CHEMISTRY METHOD 08/30/2024 11:26 AM [facility] Glucose 83 70 - 100 mg/dL LAB CHEMISTRY METHOD 08/30/2024 11:26 AM [facility] BUN 41(H) 5 - 25 mg/dL LAB CHEMISTRY METHOD 08/30/2024 11:26 AM [facility] Creatinine 2.93(H) 0.50 - 1.10 mg/dL LAB CHEMISTRY METHOD 08/30/2024 11:26 AM [facility] eGFR 18(L) >=60 mL/min/1. 73m2 LAB CHEMISTRY METHOD 08/30/2024 11:26 AM [facility] Comment:Calculation based on the Chronic Kidney Disease Epidemiology Collaboration (CKD-EPI) equation refit without adjustment for race. BUN/Creatinine Ratio 14.0 LAB CHEMISTRY METHOD 08/30/2024 11:26 AM [facility] Calcium 7.8(L) 8.5 - 10.5 mg/dL LAB CHEMISTRY METHOD 08/30/2024 11:26 AM EDT [facility] Blood Venous blood specimen / Unknown Venipuncture / Unknown 08/30/2024 7:03 AM EDT 08/30/2024 9:44 AM EDT us Lazaro Santoyo MD LAB BLOOD ORDERABLES Final Resul t [facility] [address] [place] [address], documented in this encounter Visit Diagnoses Diagnosis [...] documented as of this encounter Care Teams Gun Stocker Relationship Specialty Start Date End Date Polo Kay NP [address] [place] [address] PCP - General Nurse Practitioner 12/28/24 documented as of this encounter
--- OUTSIDE RECORDS SUMMARY | 2025-05-18 06:55 | XMS_ITS | Encounter Summary ---
Author Organization [facility] Address [address] [place] [address] Care Team Providers Care Medical Staff Manager Name Role Phone Polo Kay NP Primary Care Provider +1- [phone] Encounter Details Date Type Department Care Team (Late st Contact Info) Description 09/21/2024 Lab Requisition [facility] - Main Lab [address] [facility] [place] [phone] Lazaro Santoyo MD [address] [place] [address] Chronic kidney disease, unspecified Social History Tobacco [...] for your loved ones. For example, children's lunchroom supervisor or elderly care for an older adult? [...] Patient-Stated? Author family goal General No Elena Wcik, OT Note: Help pt get better as [...] STS ST LTG General No Ene Moffett, OVEN LABORER Note: Pt will improve cognitive linguistic function to participate and communicate in basic ADLs supervision ST STGs General No Ene Moffett, OVEN LABORER Note: Pt will participate with development of [...] LAB CHEMISTRY METHOD 09/21/2024 11:23 AM EDT [facility] Potassium 4.9 3.5 - 5.5 mmol/L LAB CHEMISTRY METHOD 09/21/2024 11:23 AM EDT [facility] Chloride 107 96 - 110 mmol/L LAB CHEMISTRY METHOD 09/21/2024 11:23 AM [facility] CO2 21 21 - 32 mmol/L LAB CHEMISTRY METHOD 09/21/2024 11:23 AM [facility] LAB Anion Gap 8 3 - 11 LAB CHEMISTRY METHOD 09/21/2024 11:23 AM [facility] Glucose 122(H) 70 - 100 mg/dL LAB CHEMISTRY METHOD 09/21/2024 11:23 AM [facility] BUN 60(H) 5 - 25 mg/dL LAB CHEMISTRY METHOD 09/21/2024 11:23 AM [facility] Creatinine 3.26(H) 0.50 - 1.10 mg/dL LAB CHEMISTRY METHOD 09/21/2024 11:23 AM [facility] LAB eGFR 16(L) >=60 mL/min/1. 73m2 LAB CHEMISTRY METHOD 09/21/2024 11:23 AM [facility] LAB Comment:Calculation based on the Chronic Kidney Disease Epidemiology Collaboration (CKD-EPI) equation refit without adjustment for race. BUN/Creatinine Ratio 18.4 LAB CHEMISTRY METHOD 09/21/2024 11:23 AM [facility] Calcium 8.2(L) 8.5 - 10.5 mg/dL LAB CHEMISTRY METHOD 09/21/2024 11:23 AM [facility] Blood Venous blood specimen / Unknown Venipuncture / Unknown 09/21/2024 8:38 AM EDT 09/21/2024 10:10 AM EDT us Lazaro Santoyo MD LAB BLOOD ORDERABLES Final Resul t [facility] [address] [place] [address], documented in this encounter Visit Diagnoses Diagnosis [...] as of this encounter Care Teams Medical Staff Manager Relationship Specialty Start Date End Date Polo Kay NP [facility] [place] [address] PCP - General Nurse Practitioner 12/28/24 documented as of this encounter
--- OUTSIDE RECORDS SUMMARY | 2025-05-18 06:55 | XMS_ITS | Encounter Summary ---
Author Organization [facility] Address [address] [place] [address] Care Team Providers Care Business Job Titles Name Role Phone Polo Kay NP Primary Care Provider +1- [phone] Encounter Details Date Type Department Care Team (Late st Contact Info) Description 08/21/2024 Lab Requisition [facility] - Main Lab [address] [facility] [place] [address] Lazaro Santoyo MD [address] [place] [address] Essential (primary) hypertension Social History Tobacco Use [...] for your loved ones. For example, children's choir director or elderly care for an older [...] Entry Date Author No 08/18/2024 9:12 PM NICHOT Allyson Chester RN documented in this encounter Plan of [...] STS ST LTG General No Ene Moffett, CLINICAL BUSINESS ANALYST Note: Pt will improve cognitive linguistic function to participate and communicate in basic ADLs supervision ST STGs General No Ene Moffett, CLINICAL BUSINESS ANALYST Note: Pt will participate with development of [...] documented as of this encounter Care Teams Business Job Titles Relationship Specialty Start Date End Date Polo Kay NP [address] [place] [address] PCP - General Nurse Practitioner 12/28/24 documented as of this encounter
--- OUTSIDE RECORDS SUMMARY | 2025-05-18 06:55 | XMS_ITS | Encounter Summary ---
Author Organization [facility] Address [address] [place] [address] Care Team Providers Care Inspection Engineer Name Role Phone Polo Kay NP Primary Care Provider +1- [phone] Encounter Details Date Type Department Care Team (Late st Contact Info) Description 09/17/2024 Lab Requisition [facility] - Main Lab 299 [facility] [place] [phone] Lazaro Santoyo MD [address] [place] [address] Chronic kidney disease, unspecified Social History Tobacco [...] your loved ones. For example, early childhood assistant or elderly care for an older [...] STS ST LTG General No Ene Moffett, RELAY MOTORMAN Note: Pt will improve cognitive linguistic function to participate and communicate in basic ADLs supervision ST STGs General No Ene Moffett, RELAY MOTORMAN Note: Pt will participate with development of [...] LAB CHEMISTRY METHOD 09/17/2024 10:09 AM EDT [facility] Potassium 5.1 3.5 - 5.5 mmol/L LAB CHEMISTRY METHOD 09/17/2024 10:09 AM [facility] Chloride 104 96 - 110 mmol/L LAB CHEMISTRY METHOD 09/17/2024 10:09 AM [facility] CO2 23 21 - 32 mmol/L LAB CHEMISTRY METHOD 09/17/2024 10:09 AM [facility] Anion Gap 9 3 - 11 LAB CHEMISTRY METHOD 09/17/2024 10:09 AM [facility] Glucose 124(H) 70 - 100 mg/dL LAB CHEMISTRY METHOD 09/17/2024 10:09 AM [facility] BUN 57(H) 5 - 25 mg/dL LAB CHEMISTRY METHOD 09/17/2024 10:09 AM [facility] Creatinine 3.47(H) 0.50 - 1.10 mg/dL LAB CHEMISTRY METHOD 09/17/2024 10:09 AM [facility] eGFR 15(L) >=60 mL/min/1. 73m2 LAB CHEMISTRY METHOD 09/17/2024 10:09 AM [facility] LAB Comment:Calculation based on the Chronic Kidney Disease Epidemiology Collaboration (CKD-EPI) equation refit without adjustment for race. BUN/Creatinine Ratio 16.4 LAB CHEMISTRY METHOD 09/17/2024 10:09 AM [facility] Calcium 8.1(L) 8.5 - 10.5 mg/dL LAB CHEMISTRY METHOD 09/17/2024 10:09 AM [facility] Blood Venous blood specimen / Unknown Venipuncture / Unknown 09/17/2024 6:10 AM EDT 09/17/2024 8:40 AM EDT us Lazaro Santoyo MD LAB BLOOD ORDERABLES Final Resul t [facility] [address] [place] [address], [place] [phone] * (ABNORMAL) Complete blood count (09/17/2024 6:10 AM EDT) [facility] WBC 7.5 4.8 - 10.8 K/mcL LAB HEMETOLOGY METHOD 09/17/2024 9:00 AM [facility] RBC 2.80(L) 3.80 - 4.80 M/mcL LAB HEMETOLOGY METHOD 09/17/2024 9:00 AM [facility] Hemoglobin 8.0(L) 11.5 - 16.0 g/dL LAB HEMETOLOGY METHOD 09/17/2024 9:00 AM [facility] Hematocrit 25.1(L) 35.0 - 47.0 % LAB HEMETOLOGY METHOD 09/17/2024 9:00 AM [facility] MCV 90.3 79.0 - 98.0 FL LAB HEMETOLOGY METHOD 09/17/2024 9:00 AM [facility] MCH 28.8 27.0 - 32.0 pcg LAB HEMETOLOGY METHOD 09/17/2024 9:00 AM [facility] MCHC 31.9(L) 32.0 - 37.0 g/dL LAB HEMETOLOGY METHOD 09/17/2024 9:00 AM [facility] RDW 15.9(H) 11.0 - 15.0 % LAB HEMETOLOGY METHOD 09/17/2024 9:00 AM [facility] Platelets 167 130 - 400 K/mcL LAB HEMETOLOGY METHOD 09/17/2024 9:00 AM [facility] MPV 9.8 7.0 - 11.0 FL LAB HEMETOLOGY METHOD 09/17/2024 9:00 AM [facility] NRBC 0.0 <1.0 % LAB HEMETOLOGY METHOD 09/17/2024 9:00 AM EDT [facility] NRBC Absolute 0.00 <0.10 K/mcL LAB HEMETOLOGY METHOD 09/17/2024 9:00 AM EDT [facility] Blood Venous blood specimen / Unknown Venipuncture / Unknown 09/17/2024 6:10 AM EDT 09/17/2024 8:40 AM EDT us Lazaro Santoyo MD LAB BLOOD ORDERABLES Final Resul t [facility] [address] [place] [address], documented in this encounter Visit Diagnoses Diagnosis [...] documented as of this encounter Care Teams Inspection Engineer Relationship Specialty Start Date End Date Polo Kay NP [address] [place] [address] PCP - General Nurse Practitioner 12/28/24 documented as of this encounter
--- OUTSIDE RECORDS SUMMARY | 2025-05-18 06:55 | XMS_ITS | Encounter Summary ---
Author Organization [facility] Address [address] [place] [address] Care Team Providers Care Education Consultant Name Role Phone Eliza Polo DINAH Primary Care Provider +1- [phone] Encounter Details Date Type Department Care Team (Late st Contact Info) Description 08/09/2024 Lab Requisition [facility] - Main Lab 299 [facility] [place] [phone] Lazaro Santoyo MD [address] [place] [address] Essential (primary) hypertension Social History Tobacco Use [...] STS ST LTG General No Ene Moffett, CINDER DUMP CRANE OPERATOR Note: Pt will improve cognitive linguistic function to participate and communicate in basic ADLs supervision ST STGs General No Ene Moffett, CINDER DUMP CRANE OPERATOR Note: Pt will participate with development [...] mmol/L LAB CHEMISTRY METHOD 08/09/2024 12:10 PM [facility] Potassium 3.4(L) 3.5 - 5.5 mmol/L LAB CHEMISTRY METHOD 08/09/2024 12:10 PM [facility] Chloride 103 96 - 110 mmol/L LAB CHEMISTRY METHOD 08/09/2024 12:10 PM [facility] CO2 23 21 - 32 mmol/L LAB CHEMISTRY METHOD 08/09/2024 12:10 PM [facility] Anion Gap 8 3 - 11 LAB CHEMISTRY METHOD 08/09/2024 12:10 PM [facility] Glucose 74 70 - 100 mg/dL LAB CHEMISTRY METHOD 08/09/2024 12:10 PM [facility] BUN 23 5 - 25 mg/dL LAB CHEMISTRY METHOD 08/09/2024 12:10 PM [facility] Creatinine 1.93(H) 0.50 - 1.10 mg/dL LAB CHEMISTRY METHOD 08/09/2024 12:10 PM [facility] eGFR 29(L) >=60 mL/min/1. 73m2 LAB CHEMISTRY METHOD 08/09/2024 12:10 PM [facility] Comment:Calculation based on the Chronic Kidney Disease Epidemiology Collaboration (CKD-EPI) equation refit without adjustment for race. BUN/Creatinine Ratio 11.9 LAB CHEMISTRY METHOD 08/09/2024 12:10 PM EDT [facility] Calcium 8.1(L) 8.5 - 10.5 mg/dL LAB CHEMISTRY METHOD 08/09/2024 12:10 PM EDT [facility] Blood Venous blood specimen / Unknown Venipuncture / Unknown 08/09/2024 6:52 AM EDT 08/09/2024 11:25 AM EDT us Lazaro Santoyo MD LAB BLOOD ORDERABLES Final Resul t [facility] [address] [place] [address], * (ABNORMAL) Complete blood count (08/09/2024 6:52 AM EDT) WBC 6.6 4.8 - 10.8 K/mcL LAB HEMETOLOGY METHOD 08/09/2024 12:20 PM EDT [facility] RBC 2.80(L) 3.80 - 4.80 M/mcL LAB HEMETOLOGY METHOD 08/09/2024 12:20 PM EDT [facility] Hemoglobin 7.8(L) 11.5 - 16.0 g/dL LAB HEMETOLOGY METHOD 08/09/2024 12:20 PM [facility] Hematocrit 23.6(L) 35.0 - 47.0 % LAB HEMETOLOGY METHOD 08/09/2024 12:20 PM EDT [facility] MCV 84.6 79.0 - 98.0 FL LAB HEMETOLOGY METHOD 08/09/2024 12:20 PM EDT [facility] MCH 28.0 27.0 - 32.0 pcg LAB HEMETOLOGY METHOD 08/09/2024 12:20 PM [facility] MCHC 33.1 32.0 - 37.0 g/dL LAB HEMETOLOGY METHOD 08/09/2024 12:20 PM EDT [facility] RDW 13.5 11.0 - 15.0 % LAB HEMETOLOGY METHOD 08/09/2024 12:20 PM EDT [facility] Platelets 277 130 - 400 K/mcL LAB HEMETOLOGY METHOD 08/09/2024 12:20 PM EDT [facility] MPV 9.9 7.0 - 11.0 FL LAB HEMETOLOGY METHOD 08/09/2024 12:20 PM EDT [facility] NRBC 0.0 <1.0 % LAB HEMETOLOGY METHOD 08/09/2024 12:20 PM EDT [facility] NRBC Absolute 0.00 <0.10 K/mcL LAB HEMETOLOGY METHOD 08/09/2024 12:20 PM EDT [facility] Blood Venous blood specimen / Unknown Venipuncture / Unknown 08/09/2024 6:52 AM EDT 08/09/2024 11:25 AM EDT us Lazaro Santoyo MD LAB BLOOD ORDERABLES Final Resul t [facility] [address] [place] [address], documented in this encounter Visit Diagnoses Diagnosis [...] documented as of this encounter Care Teams Education Consultant Relationship Specialty Start Date End Date Polo Kay NP [address] [place] [address] PCP - General Nurse Practitioner 12/28/24 documented as of this encounter
--- OUTSIDE RECORDS SUMMARY | 2025-05-18 06:55 | XMS_ITS | Encounter Summary ---
Author Organization [facility] Address [address] [place] [address] Care Team Providers Care Clerical Clerk Name Role Phone Polo Kay NP Primary Care Provider +1- [phone] Encounter Details Date Type Department Care Team (Late st Contact Info) Description 09/01/[address] [facility] - Main Lab [address] [facility] [place] [address] Lazaro Santoyo MD [address] [place] [address] Chronic kidney disease, unspecified Social History Tobacco [...] your loved ones. For example, child support officer or elderly care for an older adult? [...] STS ST LTG General No Ene Moffett, ASSISTANT CORPORATION COUNSEL Note: Pt will improve cognitive linguistic function to participate and communicate in basic ADLs supervision ST STGs General No Ene Moffett, ASSISTANT CORPORATION COUNSEL Note: Pt will participate with development of [...] mmol/L LAB CHEMISTRY METHOD 09/01/2024 11:49 AM EDT [facility] Potassium 5.0 3.5 - 5.5 mmol/L LAB CHEMISTRY METHOD 09/01/2024 11:49 AM EDT [facility] Chloride 105 96 - 110 mmol/L LAB CHEMISTRY METHOD 09/01/2024 11:49 AM [facility] CO2 20(L) 21 - 32 mmol/L LAB CHEMISTRY METHOD 09/01/2024 11:49 AM [facility] Anion Gap 9 3 - 11 LAB CHEMISTRY METHOD 09/01/2024 11:49 AM [facility] Glucose 45(L) 70 - 100 mg/dL LAB CHEMISTRY METHOD 09/01/2024 11:49 AM [facility] BUN 49(H) 5 - 25 mg/dL LAB CHEMISTRY METHOD 09/01/2024 11:49 AM [facility] Creatinine 3.12(H) 0.50 - 1.10 mg/dL LAB CHEMISTRY METHOD 09/01/2024 11:49 AM [facility] eGFR 16(L) >=60 mL/min/1. 73m2 LAB CHEMISTRY METHOD 09/01/2024 11:49 AM [facility] Comment:Calculation based on the Chronic Kidney Disease Epidemiology Collaboration (CKD-EPI) equation refit without adjustment for race. BUN/Creatinine Ratio 15.7 LAB CHEMISTRY METHOD 09/01/2024 11:49 AM [facility] Calcium 8.1(L) 8.5 - 10.5 mg/dL LAB CHEMISTRY METHOD 09/01/2024 11:49 AM [facility] Blood Venous blood specimen / Unknown Venipuncture / Unknown 09/01/2024 8:16 AM EDT 09/01/2024 10:38 AM EDT us Lazaro Santoyo MD LAB BLOOD ORDERABLES Final Resul t [facility] [address] [place] [address], documented in this encounter Visit Diagnoses Diagnosis [...] documented as of this encounter Care Teams Clerical Clerk Relationship Specialty Start Date End Date Polo Kay NP [address] [place] [address] PCP - General Nurse Practitioner 12/28/24 documented as of this encounter
--- OUTSIDE RECORDS SUMMARY | 2025-05-18 06:55 | XMS_ITS | Encounter Summary ---
Author Organization [facility] Address [address] [place] [address] Care Team Providers Care Amusement Machine Mechanic Name Role Phone Polo Kay NP Primary Care Provider +1- [phone] Encounter Details Date Type Department Care Team (Late st Contact Info) Description 09/08/2024 Lab Requisition [facility] - Main Lab 299 [facility] [place] [phone] Lazaro Santoyo MD [address] [place] [address] Anemia, unspecified Social History Tobacco Use Types [...] your loved ones. For example, child care nurse or elderly care for an older [...] STS [facility] General No Ene Moffett, OFFBEARER SEWER PIPE Note: Pt will improve cognitive linguistic function to participate and communicate in basic ADLs supervision ST STGs General No Ene Moffett, OFFBEARER SEWER PIPE Note: Pt will participate with development of [...] CBC auto differential (09/08/2024 7:53 AM EDT) [facility] WBC 7.3 4.8 - 10.8 K/mcL LAB HEMETOLOGY METHOD 09/08/2024 10:54 AM [facility] RBC 2.90(L) 3.80 - 4.80 M/mcL LAB HEMETOLOGY METHOD 09/08/2024 10:54 AM [facility] Hemoglobin 8.3(L) 11.5 - 16.0 g/dL LAB HEMETOLOGY METHOD 09/08/2024 10:54 AM [facility] Hematocrit 26.2(L) 35.0 - 47.0 % LAB HEMETOLOGY METHOD 09/08/2024 10:54 AM [facility] MCV 90.3 79.0 - 98.0 FL LAB HEMETOLOGY METHOD 09/08/2024 10:54 AM [facility] MCH 28.6 27.0 - 32.0 pcg LAB HEMETOLOGY METHOD 09/08/2024 10:54 AM [facility] MCHC 31.7(L) 32.0 - 37.0 g/dL LAB HEMETOLOGY METHOD 09/08/2024 10:54 AM [facility] RDW 14.9 11.0 - 15.0 % LAB HEMETOLOGY METHOD 09/08/2024 10:54 AM [facility] Platelets 185 130 - 400 K/mcL LAB HEMETOLOGY METHOD 09/08/2024 10:54 AM [facility] MPV 9.9 7.0 - 11.0 FL LAB HEMETOLOGY METHOD 09/08/2024 10:54 AM [facility] NRBC 0.0 <1.0 % LAB HEMETOLOGY METHOD 09/08/2024 10:54 AM [facility] NRBC Absolute 0.00 <0.10 K/mcL LAB HEMETOLOGY METHOD 09/08/2024 10:54 AM [facility] Neutrophils Relative 61.3 % LAB HEMETOLOGY METHOD 09/08/2024 10:54 AM [facility] Lymphocytes Relative 20.9 % LAB HEMETOLOGY METHOD 09/08/2024 10:54 AM [facility] Monocytes Relative 11.2 % LAB HEMETOLOGY METHOD 09/08/2024 10:54 AM [facility] Eosinophils Relative 5.0 % LAB HEMETOLOGY METHOD 09/08/2024 10:54 AM [facility] Basophils Relative 0.4 % LAB HEMETOLOGY METHOD 09/08/2024 10:54 AM [facility] Immature Granulocytes Relative 1.2 % LAB HEMETOLOGY METHOD 09/08/2024 10:54 AM [facility] Neutrophils Absolute 4.49 1.50 - 7.00 K/mcL LAB HEMETOLOGY METHOD 09/08/2024 10:54 AM [facility] Lymphocytes Absolute 1.53 1.00 - 5.00 K/mcL LAB HEMETOLOGY METHOD 09/08/2024 10:54 AM [facility] Monocytes Absolute 0.82 0.20 - 1.00 K/mcL LAB HEMETOLOGY METHOD 09/08/2024 10:54 AM [facility] Eosinophils Absolute 0.37 0.00 - 0.50 K/mcL LAB HEMETOLOGY METHOD 09/08/2024 10:54 AM [facility] Basophils Absolute 0.03 0.00 - 0.20 K/mcL LAB HEMETOLOGY METHOD 09/08/2024 10:54 AM [facility] Immature Granulocytes Absolute 0.09(H) 0.00 - 0.03 K/mcL LAB HEMETOLOGY METHOD 09/08/2024 10:54 AM [facility] Blood Venous blood specimen / Unknown Venipuncture / Unknown 09/08/2024 7:53 AM EDT 09/08/2024 10:07 AM EDT us Lazaro Santoyo MD LAB BLOOD ORDERABLES Final Resul t Performing Organization Address [facility]/ZIP Co de Phone Number [facility] [address] [place] [address], [place] [phone] * Valproic acid level, total (09/08/2024 7:53 AM EDT) Pathologist [facility] Valproic Acid, Total 66 50 - 100 mcg/mL LAB CHEMISTRY METHOD 09/08/2024 12:00 PM EDT [facility] Blood Venous blood specimen / Unknown Venipuncture / Unknown 09/08/2024 7:53 AM EDT 09/08/2024 10:07 AM EDT us Lazaro Satnoyo MD LAB BLOOD ORDERABLES Final Resul t Performing Organization Address [facility]/ZIP Co de Phone Number [facility] [address] [place] [address], [place] [phone] * (ABNORMAL) Comprehensive metabolic panel (09/08/2024 7:53 AM EDT) Sodium 133 133 - 145 mmol/L LAB CHEMISTRY METHOD 09/08/2024 12:00 PM EDT [facility] Potassium 5.0 3.5 - 5.5 mmol/L LAB CHE[facility]STRY [facility] Chlor[facility] 105 96 - 110 mmol/L LAB CHEMISTRY METHOD 09/08/2024 12:00 PM T [facility] CO2 21 21 - 32 mmol/L LAB CHEMISTRY METHOD 09/08/2024 12:00 PM EDT [facility] Anion Gap 7 3 - 11 LAB CHEMISTRY METHOD 09/08/2024 12:00 PM [facility] Glucose 97 70 - 100 mg/dL LAB CHEMISTRY METHOD 09/08/2024 12:00 PM [facility] BUN 56(H) 5 - 25 mg/dL LAB CHEMISTRY METHOD 09/08/2024 12:00 PM [facility] Creatinine 3.27(H) 0.50 - 1.10 mg/dL LAB CHEMISTRY METHOD 09/08/2024 12:00 PM [facility] eGFR 16(L) >=60 mL/min/1. 73m2 LAB CHEMISTRY METHOD 09/08/2024 12:00 PM [facility] Comment:Calculation based on the Chronic Kidney Disease Epidemiology Collaboration (CKD-EPI) equation refit without adjustment for race. BUN/Creatinine Ratio 17.1 LAB CHEMISTRY METHOD 09/08/2024 12:00 PM [facility] Calcium 8.4(L) 8.5 - 10.5 mg/dL LAB CHEMISTRY METHOD 09/08/2024 12:00 PM [facility] AST (SGOT) 12 10 - 42 unit/L LAB CHEMISTRY METHOD 09/08/2024 12:00 [facility] ALT (SGPT) 14 10 - 60 unit/L LAB CHEMISTRY METHOD 09/08/2024 12:00 PM [facility] Alkaline Phosphatase 86 42 - 121 unit/L LAB CHEMISTRY METHOD 09/08/2024 12:00 PM [facility] Total Protein 5.3(L) 6.0 - 8.0 g/dL LAB CHEMISTRY METHOD 09/08/2024 12:00 PM [facility] Albumin 2.4(L) 3.2 - 5.0 g/dL LAB CHEMISTRY METHOD 09/08/2024 12:00 PM [facility] Total Bilirubin 0.3 0.0 - 1.4 mg/dL LAB CHEMISTRY METHOD 09/08/2024 12:00 PM EDT [facility] Blood Venous blood specimen / Unknown Venipuncture / Unknown 09/08/2024 7:53 AM EDT 09/08/2024 10:07 AM EDT us Lazaro Santoyo MD LAB BLOOD ORDERABLES Final Resul t [facility] [address] [place] [address], documented in this encounter Visit Diagnoses Diagnosis [...] documented as of this encounter Care Teams Amusement Machine Mechanic Relationship Specialty Start Date End Date Polo Kay NP [address] [place] [address] PCP - General Nurse Practitioner 12/28/24 documented as of this encounter
--- OUTSIDE RECORDS SUMMARY | 2025-05-18 06:55 | XMS_ITS | Encounter Summary ---
Author Organization [facility] Address [address] [place] [address] Care Team Providers Care Binder Technician Name Role Phone Polo Kay NP Primary Care Provider +1- [phone] Encounter Details Date Type Department Care Team (Late st Contact Info) Description 09/05/2024 Lab Requisition [facility] - Main Lab 299 [facility] [place] [phone] Lazaro Santoyo MD [address] [place] [address] Essential (primary) hypertension; Weakness Social History Tobacco [...] STS ST LTG General No Ene Moffett, SENIOR SQL DATABASE DEVELOPER Note: Pt will improve cognitive linguistic function to participate and communicate in basic ADLs supervision ST STGs General No Ene Moffett, SENIOR SQL DATABASE DEVELOPER Note: Pt will participate with development of [...] documented as of this encounter Care Teams Binder Technician Relationship Specialty Start Date End Date Polo Kay NP [address] [place] [id number] PCP - General Nurse Practitioner 12/28/24 documented as of this encounter
--- OUTSIDE RECORDS SUMMARY | 2025-05-18 06:55 | XMS_ITS | Encounter Summary ---
Author Organization [facility] Address [address] [place] [address] Care Team Providers Care Vocational Guidance Counselor Name Role Phone Polo Kay NP Primary Care Provider +1- [phone] Encounter Details Date Type Department Care Team (Late st Contact Info) Description 09/02/2024 Lab Requisition [facility] - Main Lab 299 [facility] [place] [address] Lazaro Santoyo MD [address] [place] [address] Chronic kidney disease, unspecified Social History Tobacco [...] care for your loved ones. For example, director child development center or elderly care for an older adult? [...] STS ST LTG General No Ene Moffett, ACCOUNTS PAYABLE SPECIALIST Note: Pt will improve cognitive linguistic function to participate and communicate in basic ADLs supervision ST STGs General No Ene Moffett, ACCOUNTS PAYABLE SPECIALIST Note: Pt will participate with development [...] documented as of this encounter Care Teams Vocational Guidance Counselor Relationship Specialty Start Date End Date Polo Kay NP [address] [place] [address] PCP - General Nurse Practitioner 12/28/24 documented as of this encounter
--- OUTSIDE RECORDS SUMMARY | 2025-05-18 06:55 | XMS_ITS | Encounter Summary ---
Author Organization [facility] Address [address] [place] [address] Care Team Providers Care Ruling Machine Operator Name Role Phone Polo Kay NP Primary Care Provider +1- [phone] Encounter Details Date Type Department Care Team (Late st Contact Info) Description 09/07/2024 Lab Requisition [facility] - Main Lab 299 [facility] [place] [address] Lazaro Santoyo MD [address] [place] [address] Chronic kidney disease, unspecified Social History Tobacco [...] STS ST LTG General No Ene Moffett, MOTOR EXPERT Note: Pt will improve cognitive linguistic function to participate and communicate in basic ADLs supervision ST STGs General No Ene Moffett, MOTOR EXPERT Note: Pt will participate with development of [...] LAB CHEMISTRY METHOD 09/07/2024 10:22 AM EDT [facility] Potassium 4.4 3.5 - 5.5 mmol/L LAB CHEMISTRY METHOD 09/07/2024 10:22 AM [facility] Chloride 107 96 - 110 mmol/L LAB CHEMISTRY METHOD 09/07/2024 10:22 AM [facility] CO2 20(L) 21 - 32 mmol/L LAB CHEMISTRY METHOD 09/07/2024 10:22 AM [facility] Anion Gap 9 3 - 11 LAB CHEMISTRY METHOD 09/07/2024 10:22 AM [facility] Glucose 180(H) 70 - 100 mg/dL LAB CHEMISTRY METHOD 09/07/2024 10:22 AM [facility] BUN 54(H) 5 - 25 mg/dL LAB CHEMISTRY METHOD 09/07/2024 10:22 AM [facility] Creatinine 3.17(H) 0.50 - 1.10 mg/dL LAB CHEMISTRY METHOD 09/07/2024 10:22 AM [facility] LAB eGFR 16(L) >=60 mL/min/1. 73m2 LAB CHEMISTRY METHOD 09/07/2024 10:22 AM [facility] LAB Comment:Calculation based on the Chronic Kidney Disease Epidemiology Collaboration (CKD-EPI) equation refit without adjustment for race. BUN/Creatinine Ratio 17.0 LAB CHEMISTRY METHOD 09/07/2024 10:22 AM [facility] Calcium 7.9(L) 8.5 - 10.5 mg/dL LAB CHEMISTRY METHOD 09/07/2024 10:22 AM [facility] AST (SGOT) 7(L) 10 - 42 unit/L LAB CHEMISTRY METHOD 09/07/2024 10:22 AM [facility] ALT (SGPT) 10 10 - 60 unit/L LAB CHEMISTRY METHOD 09/07/2024 10:22 AM [facility] Alkaline Phosphatase 93 42 - 121 unit/L LAB CHEMISTRY METHOD 09/07/2024 10:22 AM [facility] Total Protein 4.8(L) 6.0 - 8.0 g/dL LAB CHEMISTRY METHOD 09/07/2024 10:22 AM EDT [facility] Albumin 2.1(L) 3.2 - 5.0 g/dL LAB CHEMISTRY METHOD 09/07/2024 10:22 AM [facility] Total Bilirubin 0.2 0.0 - 1.4 mg/dL LAB CHEMISTRY METHOD 09/07/2024 10:22 AM T [facility] Blood Venous blood specimen / Unknown Venipuncture / Unknown 09/07/2024 7:08 AM EDT 09/07/2024 9:06 AM EDT us Lazaro Santoyo MD LAB BLOOD ORDERABLES Final Resul t [facility] [address] [place] [address], * (ABNORMAL) Complete blood count (09/07/2024 7:08 AM EDT) WBC 6.2 4.8 - 10.8 K/mcL LAB HEMETOLOGY METHOD 09/07/2024 10:23 AM [facility] RBC 2.60(L) 3.80 - 4.80 M/mcL LAB HEMETOLOGY METHOD 09/07/2024 10:23 AM [facility] Hemoglobin 7.6(L) 11.5 - 16.0 g/dL LAB HEMETOLOGY METHOD 09/07/2024 10:23 AM [facility] Hematocrit 23.3(L) 35.0 - 47.0 % LAB HEMETOLOGY METHOD 09/07/2024 10:23 AM [facility] LAB MCV 88.3 79.0 - 98.0 FL LAB HEMETOLOGY METHOD 09/07/2024 10:23 AM [facility] LAB MCH 28.8 27.0 - 32.0 pcg LAB HEMETOLOGY METHOD 09/07/2024 10:23 AM EDT [facility] MCHC 32.6 32.0 - 37.0 g/dL LAB HEMETOLOGY METHOD 09/07/2024 10:23 AM EDT [facility] RDW 15.0 11.0 - 15.0 % LAB HEMETOLOGY METHOD 09/07/2024 10:23 AM EDT [facility] Platelets 167 130 - 400 K/mcL LAB HEMETOLOGY METHOD 09/07/2024 10:23 AM EDT [facility] MPV 10.1 7.0 - 11.0 FL LAB HEMETOLOGY METHOD 09/07/2024 10:23 AM EDT [facility] NRBC 0.0 <1.0 % LAB HEMETOLOGY METHOD 09/07/2024 10:23 AM EDT [facility] NRBC Absolute 0.00 <0.10 K/mcL LAB HEMETOLOGY METHOD 09/07/2024 10:23 AM EDT [facility] Blood Venous blood specimen / Unknown Venipuncture / Unknown 09/07/2024 7:08 AM EDT 09/07/2024 9:06 AM EDT us Lazaro Santoyo MD LAB BLOOD ORDERABLES Final Resul t [facility] [address] [place] [address], documented in this encounter Visit Diagnoses Diagnosis Chronic kidney disease, unspecified documented in this encounter Additional Health Concerns Infection Onset Date Last Indicated Resolved Time ESBL Comment:Escherichia coli (+)ESBL urine 12/29/2024 01/31/2025 Respiratory Rule-Out 01/28/2025 01/28/202501/29/ 025 12:32 AM EDT COVID-19 Rule-Out 01/28/2025 [...] documented as of this encounter Care Teams Ruling Machine Operator Relationship Specialty Start Date End Date Polo Kay NP [address] [place] [address] PCP - General Nurse Practitioner 12/28/24 documented as of this encounter
--- OUTSIDE RECORDS SUMMARY | 2025-05-18 06:55 | XMS_ITS | Data Portability ---
Author Organization [facility], [facility] Address [address] [place] [address] Care Team Providers Care Marketing Copywriter Name Role Phone Polo Kay Primary Care Provider Assessment Encounter Date Assessment [...] have the procedure performed under straight local. [facility] speech recognition sterile processing manager software was used to create portions of [...] call for for such at her convenience. [email or web address] Not available 12/16/2024 16:10:18 Plan of Treatment Reminders Order Date Submit Date Provider Name Organization Details Last Modified By Last Modified Time Details Appointments None recorde d. Lab None recorde d. Referral physica l therapi st referra l 2024 15:59: 42 025 Mati Laguerre PA-C Not available Mati Laguerre PA-C 5 11:20:[address]i st referra l 2024 13:59: 42 025 Kimberly morejon PA-C Not available Kimberly Sidhu PA-C 5 15:58:44 Procedures None recorde d. Surgeries None recorde d. Imaging XR, knee, 4 or more view 2024 15:19: 39 025 Mati Laguerre PA-C [facility] [address], [place], [address], Mati Laguerre PA-C 5 11:20:54 XR, shoulde r, 2 or more view 2024 15:22: 02 025 Kimberly morejon PA-C [facility] [address], [place], [address], Kimberly Sidhu PA-C 5 13:04:11 XR, hand, 3 or more view 2023 09:13: 15 024 Raheem Cid PA-C [facility] [address], [place], [address], CHAYO MESSENGER 4 10:20:44 MedicationOrders None recorde d. VaccineOrders None recorde d. Patient TargetsNo targets recorded. Patient InstructionsNo instructions recorded. 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, LUE weakness Stretch shoulder, elbow, wrist, hand, HEP, modalities as appropriate 2-3 per week, 4-6 week Referring Physician: Kimberly Sidhu, Orthopedic Surgery, Encounter Date: 12/15/2024 Results Created Date Observation Date Name Description Value Unit Range Abnormal Flag Specimen Type Note LastModifiedBy Organization Detail LastModifiedTime 10/27/2024 10/27/2024 shoulder 4 view [email or web address]=tfPvGtwYS5fTlgUYp4p%6WIQucExrdd3wldk%5Uo8ARi4 guDtaP2mIvZAapwPj7MvSFTjQckKFS4gKjBKpqv82s8356ZW6VmyN4LJ0JlHyAdbWoB Not Available [facility] , [address] [address] , [place] , [address], , 10/27/2024 15:37:50 10/27/2024 10/27/2024 shoulder 4 view [email or web address]=yqEiUyjCQ4uBmsVPs2a%3NURxqCaoqg2xmxg%4Jj0LAp6 jlNctN7jPaIDvrdQj3EzAQCrMegTSG8tFtVNwcn72v0644MQ8LkeM0CS5GgXoQdnBiL Not Available [facility] , [address] [address] , [place] , [address], , 10/27/2024 15:37:51 10/27/2024 10/27/2024 shoulder 4 view [email or web address]=fkQgDokZL2lWskIGy3y%6IZQxfPgemb0cvxe%0Kl0CDy7 nhTqtR4uMsCFghzNp6KrYXOtCgjUXX5eMmHAzwk14z5909OJ5JjcR5CF8LkMfDisXpB Not Available [facility] , [address],[facility] [address] , [place] , [address], , 10/27/2024 15:59:27 10/27/2024 10/27/2024 shoulder 4 view [email or web address]=xgIxCkuFG4tXcgCGz6t%5HGNbiDeecr8haif%5Pf8VAp4 jkQasH9rDiUHtjgFa3IxWNNnBjzLHQ9lPeVXwwx76d1102WS2VbvJ9IF0JlGkYbaFeW Not Available [facility] , [address],[facility] [address] , [place] , [address], , 10/27/2024 15:59:28 12/16/2024 12/16/2024 knee 4 view [email or web address]=xtNkCfmEM2nTvgPGu8d%4OQWajPjpcu1sbxq%2Ml7UYq9 tyWszN8eUkOXuwjQj3AuSDKyKzdFEA0mUxCFkjq53i6619KT6FblxxCJGdsQpNbaXoA Not Available [facility] , [address],[facility] [address] , [place] , [address], , 12/16/2024 15:38:39 12/16/2024 12/16/2024 knee 4 view [email or web address]=viZsJrrNA0ePidKMp2t%0KZApcWulcb3wxch%7Xh1PUo9 ekPnsN6nHjWCiwfDx4ByKBJeHfnAAE2dBaHTbib30p6284YR6EorgsIAAsmLfJogYfZ Not Available [facility] , [address] , [place] , [address], , 12/16/2024 15:38:40 Result Notes Documentation Provider Name and Address Organization Details Recorded Time Xr, Shoulder, 2 Or More View : [email or web address] Encrypted=qfHmFnvAT9hRvkL Uv6g%4ZOErsUmnmq4iwgf%2Fg 8WXz8gkYjuM8bEmDQawvUe6Ss FLTdVxtWBO3vQyBKlhp85l182 3KF3WnhH8JV6HjMsPxuNcE Not Available [facility] 10/27/2024 15:37: 50 Xr, Shoulder, 2 Or More View : [email or web address] Encrypted=ovFsKwpLC5fBkqE Uv6g%3HHDjmOliac5zkaa%2Fg 7GEl0kyDofF2bTcURtgbZz4It VEBjOxpKVT8zSnNQsat25e634 7VL1OsdU1KD4MtBoLpoRvA Not Available [facility] 10/27/2024 15:37: 51 Xr, Shoulder, 2 Or More View : [email or web address] Encrypted=maYdJwdWG6oTkmY Uv6g%8FMAlrVqina2zmle%2Fg 0DKv4hwVprX2jAuNCqpjBi7Dl LTFkGeeBTA4uCvBShqf12g234 0CD4UydG9BY3JhSfObtNiB Not Available [facility] 10/27/2024 15:59: 27 Xr, Shoulder, 2 Or More View : [email or web address] Encrypted=mrFsBceFW5kJgsT Uv6g%7WQWxlRjofs0myca%2Fg 2HUk6xuQdcR9uErSEifyGp2Ij RXPyMkhUIC6fLqUDfpn71q739 5OT6UhaY2BG9TcDsRmxMwE Not Available [facility] 10/27/2024 15:59: 28 Xr, Knee, 4 Or More View : [email or web address] Encrypted=awTfAsiFC5sJmyL Uv6g%4UDGhkDmgmn7pyfq%2Fg 8NFw2mnXlcX4lWdJAglrQu2Iz VDGeNbaNQH8bEoSRcss00w781 7DN6WgiyjABWprQdFpqYfL Not Available [facility] 12/16/2024 15:38: 39 Xr, Knee, 4 Or More View : [email or web address] Encrypted=pcDaEdaBG0rUmbW Uv6g%2OYHxzDssbz3qltu%2Fg 9EJx6hsNhrF8xElFQbwpCc2Pt QBSfTcyMZR4pQyVUzrz95t621 5EF6NudtgRXGpgAaGavYxB Not Available [facility] 12/16/2024 15:38: 40 Problems Name Problem SNOMED Code Status Onset Date Resolution Date Notes Provider Name and Address Organization Details Recorded Time No complaints 223172180 Active Status : 'A'; Not Available [facility] 09:20:21 Pain of left shoulder joint 5160804996710 9109 Active 2024 MILLICENT freed [facility] 5 15:21:27 Muscle weakness of upper limb 222896562 Active 2024 MILLICENT freed [facility] 5 16:17:57 Shoulder girdle weakness 000417810 Active 2024 MILLICENT freed [facility] 5 13:58:04 Problem Notes None recorded. Procedures Surgical History Date Name Laterality Status Provider Name and Address Organization Details Recorded Time 5 Sports Knee Asp & Inj completed Mati Laguerre PA-C [address], [place], [address], [facility] 12/16/2024 16:09:05 5 Sports Shoulder 4&1 completed Kimberly Sidhu PA-C [address], [place], [address], [facility] 12/20/2024 15:19:19 Imaging Results Imaging Date Name Status LastModifiedBy Organiza tion Detail LastModifiedTime 10/27/2024 shoulder 4 view completed Not Available [facility] , [address] , [place] , [address], [place] , 10/27/2024 15:37:50 10/27/2024 shoulder 4 view completed Not Available [facility] , [address] , [place] , [address], [place] , 10/27/2024 15:37:51 10/27/2024 shoulder 4 view completed Not Available [facility] , [address] , [place] , [address], [place] , 10/27/2024 15:59:27 10/27/2024 shoulder 4 view completed Not Available [facility] , [address] , [place] , [address], [place] , 10/27/2024 15:59:28 12/16/2024 knee 4 view completed Not Available [facility] , [address] , [place] , [address], [place] , 12/16/2024 15:38:39 12/16/2024 knee 4 view completed Not Available [facility] , [address] , [place] , [address], [place] , 12/16/2024 15:38:40 Procedure Notes None recorded. Medical Equipment None Reported. Allergies Allergen ID Allergen Name Allergen Category Reaction Reaction Severity Criticality Documentation Date Start Date Code Code System Note Provider Name and Address Organization Details Recorded Time [id number] latex environme nt,medica tion Not available Not available Not available 10/27/2024 40686 91 RxNorm MILLICENT freed [place] - [facility] 14:47:00 718904 amlodipin e medicatio n Not available Not available Not available 05/09/2025 75428 RxNorm Not Available [facility] - External Data Service - prod 03:42:34 019428 amlodipin e / olmesarta n medicatio n Not available Not available Not available 05/09/20252021 42743 15 RxNorm Not Available [facility] - External Data Service - prod 5 03:42:35 Medications Name Authored On Sig Start Date Stop Date Status Note Indication Fill Status Repeat Number Dispense Quantity LastModified by Organization Details LastModified Time Omnip od 5 G6 Pods (Gen 5) subcu taneo us cartr idge 4 09:04:38 active Not Available Not availab le 0 Not Available [facility] Available [facility] 10/16/2023 09:04:38 doxyc yclin e hycla te 100 mg table t 4 09:04:38 10/15 aborted Not Available Not availab le 0 Not Available DONALD WILLIE [facility] 10/16/2023 09:30:21 dulox etine 30 mg capsu le,de layed relea se 4 09:04:38 10/15 aborted Not Available Not availab le 0 Not Available DONALD WILLIE [facility] 10/16/2023 09:30:28 Dexco m G6 Recei serafin 4 09:04:38 10/15 aborted Not Available Not availab le 0 Not Available DONALD [facility] 10/16/2023 09:30:39 Sure Comfo rt Pen Needl e 32 gauge x 4 09:04:38 10/15 aborted Not Available Not availab le 0 Not Available DONALD TAPIA [facility] 10/16/2023 09:30:44 nicot ine 7 mg/24 hr daily trans derma l patch 09:04:38 10/15 aborted Not Available Not availab le 0 Not Available DONALD [facility] 10/16/2023 09:30:57 nicot ine (jose miguel crile x) 2 mg bucca l lozen ge 4 09:04:38 10/15 aborted Not Available Not availab le 0 Not Available DONALD WILLIE [facility] 10/16/2023 09:31:07 Omnip od Dash Pods (Gen 4) subcu taneo us cartr idge 4 09:04:38 10/15 aborted Not Available Not availab le 0 Not Available DONALD [facility] 10/16/2023 09:31:11 sodiu m polys waqar e sulfo deo 15 gram oral powde r 4 09:04:38 10/15 aborted Not Available Not availab le 0 Not Available DONALD [facility] 10/16/2023 09:31:22 metop rolol succi deo ER 50 mg table t,ext ended relea se 24 hr 4 09:04:38 10/15 aborted Not Available Not availab le 0 Not Available [facility] 10/16/2023 09:31:31 Linze ss 145 mcg capsu le 4 09:04:38 10/15 aborted Not Available Not availab le 0 Not Available DONALD [facility] 10/16/2023 09:31:38 linez olid 600 mg table t 5 15:11:57 TAKE ONE TABL ET BY MOUT H TWIC E DOROTEO Y FOR TWO DAYS active Not Available Not availab le 0 Not Available Not Available [facility] - External Data Service - prod 10/25/2024 15:11:57 queti apine 25 mg table t 5 15:11:57 TAKE ONE- HALF TABL ET - ONE tabl et doroteo y NEED ED FOR ANXI ETY active Not Available Not availab le 0 Not Available Not Available [facility] - External Data Service - prod 10/25/2024 15:11:57 baclo fen 10 mg table t 5 15:11:58 TAKE 0.5 TABL ET BY MOUT H THRE E TIME S DOROTEO Y active Not Available Not availab le 0 Not Available Not Available [facility] - External Data Service - prod 10/25/2024 15:11:58 BD Ultra -Fine Short Pen Needl e 31 gauge x 5/16 5 15:11:[address] FOUR TIME S DOROTEO Y active Not Available Not availab le 0 Not Available Not Available [facility] - External Data Service - prod 10/25/2024 15:11:58 cloni dine HCl 0.1 mg table t 5 15:11:58 TAKE ONE TABL ET BY MOUT H IN THE MORN ING AND ONE TABL ET IN THE EVEN ING active Not Available Not availab le 0 Not Available Not Available [facility] - External Data Service - prod 10/25/2024 15:11:58 oxyco done 5 mg capsu le 5 15:11:58 TAKE 1 CAPS ULE BY MOUT H EVER Y 6 HOUR S IF NEED ED FOR PALAK RE PAIN . MAX DOROTEO Y AMOU NT: 20 MG active Not Available Not availab le 0 Not Available Not Available [facility] - External Data Service - prod 10/25/2024 15:11:58 Omnip od 5 G6-G7 Pods (Gen 5) subcu taneo us cartr idge 5 15:11:59 USE TO admi nist er insu francisca cont inuo usly STUBBS GE pod EVER Y TWO DAYS active Not Available Not availab le 0 Not Available Not Available [facility] - External Data Service - prod 10/25/2024 15:11:59 aceta minop hen 500 mg table t 5 15:12:00 TAKE ONE TABL ET BY MOUT H EVER Y 6 HOUR S NEED ED FOR PAIN active Not Available Not availab le 0 Not Available Not Available [facility] - External Data Service - prod 10/25/2024 15:12:00 losar kern 100 mg table t 5 15:12:01 TAKE ONE TABL ET BY MOUT H EVER Y MORN ING FOR bloo d pres sure active Not Available Not availab le 0 Not Available Not Available [facility] - External Data Service - prod 10/25/2024 15:12:01 nicot ine (jose miguel crile x) 4 mg bucca l lozen ge 5 15:12:01 DISS OLVE ONE LOZE NGE BY MOUT H EVER Y 1-2 HOUR S NEED ED FOR TOBA SAP HANA ARCHITECT CESS ATIO N (MAX 12 PIEC ES/D AY) active Not Available Not availab le 0 Not Available Not Available [facility] - External Data Service - prod 10/25/2024 15:12:01 nicot ine 21 mg/24 hr daily trans derma l patch 5 15:12:01 APPL Y ONE PATC H TO UPPE R TO THE ARM. USE FOR SIX WEEK S THEN STAR T 14 MG PATC HES active Not Available Not availab le 0 Not Available Not Available [facility] - External Data Service - prod 10/25/2024 15:12:01 Dexco m G6 Trans mitte r devic e 5 15:12:02 APPL Y with sens or TO abdo men OR FOR BACK of TO THE ARM repl amy EVER Y THRE E LORRAINE HS active Not Available Not availab le 0 Not Available Not Available [facility] - External Data Service - prod 10/25/2024 15:12:02 OneTo uch Verio Flex Meter 5 15:12:02 USE TO test bloo d gluc ose EVER Y DAY active Not Available Not availab le 0 Not Available Not Available [facility] - External Data Service - prod 10/25/2024 15:12:02 Baqsi mi 3 mg/ac tuati on nasal spray 5 15:12:03 SPRA Y ONE rika ce into one nost ril NEED ED FOR PALAK RE hypo glyc emia active Not Available Not availab le 0 Not Available Not Available [facility] - External Data Service - prod 10/25/2024 15:12:03 insul in lispr o (U-10 0) 100 unit/ mL subcu taneo us solut ion 5 15:12:05 active Not Available Not availab le 0 Not Available Not Available [facility] - External Data Service - prod 10/25/2024 15:12:05 amlod ipine 5 mg table t 5 15:12:03 TAKE ONE TABL ET BY MOUT H ONCE doroteo y 10/27 aborted Not Available Not availab le 0 Not Available MILLICENT CALVILLO [place] - [facility] 10/27/2024 14:47:23 buspi chantelle 15 mg table t 5 15:12:03 TAKE ONE TABL ET BY MOUT H THRE E TIME S DOROTEO Y 10/27 aborted Not Available Not availab le 0 Not Available MILLICENT CALVILLO [facility] 10/27/2024 14:47:47 cepha lexin 500 mg capsu le 5 15:11:57 TAKE ONE CAPS ULE BY MOUT H FOUR TIME S DOROTEO Y FOR PALAK N DAYS 10/27 aborted Not Available Not availab le 0 Not Available MILLICENT CALVILLO [facility] 10/27/2024 14:48:08 dulox etine 60 mg capsu le,de layed relea se 5 15:12:03 TAKE ONE CAPS ULE BY MOUT H ONCE doroteo y 10/27 aborted Not Available Not availab le 0 Not Available MILLICENT CALVILLO Replaced by [facility] 10/27/2024 14:48:21 Farxi ga 10 mg table t 15:12:01 TAKE ONE TABL ET BY MOUT H EVER Y MORN ING 10/27 aborted Not Available Not availab le 0 Not Available MILLICENT CALVILLO [facility] 10/27/2024 14:48:28 ergoc alcif hasmukh (cheryl min D2) 1,250 mcg (50,0 00 unit) capsu le 4 09:04:38 10/27 aborted Not Available Not availab le 0 Not Available MILLICENT CALVILLO Replaced by [facility] 10/27/2024 14:48:50 FeroS ul 325 mg (65 mg iron) table t 4 09:04:38 10/27 aborted Not Available Not availab le 0 Not Available MILLICENT CALVILLO [facility] 10/27/2024 14:48:54 gabap entin 300 mg capsu le 5 15:12:04 TAKE ONE CAPS ULE BY MOUT H THRE E TIME S DOROTEO Y 10/27 aborted Not Available Not availab le 0 Not Available MILLICENT CALVILLO [facility] 10/27/2024 14:49:00 hydra lazin e 25 mg table t 5 15:11:59 TAKE ONE TABL ET BY FLAKITO Blake THRE E TIME S DOROTEO Y FOR BLOO D PRES SURE 10/27 aborted Not Available Not availab le 0 Not Available MILLICENTANNIE CALVILLO [facility] 10/27/2024 14:49:28 Jermaine latham 10 gram oral powde r packe t 15:12:06 10/27 aborted Not Available Not availab le 0 Not Available MILLICENT CALVILLO [facility] 10/27/2024 14:49:51 metro nidaz ole 500 mg table t 15:12:05 TAKE ONE TABL ET BY FLAKITO Blake TWIC E DOROTEO Y 10/27 aborted Not Available Not availab le 0 Not Available MILLICENT RAJINDER [facility] 10/27/2024 14:49:57 queti apine 50 mg table t 5 15:12:00 TAKE ONE TABL ET [facility] 10/27 aborted Not Available Not availab le 0 Not Available MILLICENTANNIE CALVILLO [facility] 10/27/2024 14:50:31 ropin irole 0.25 mg table t 5 15:12:05 TAKE ONE TABL ET BY FLAKITO LEIJA [facility] 10/27 aborted Not Available Not availab le 0 Not Available MILLICENTANNIE CALVILLO [facility] 10/27/2024 14:50:43 tizan idine 2 mg table t 5 15:12:05 TAKE ONE TABL ET BY FLAKITO LEIJA Y 8 HOUR S 10/27 aborted Not Available Not availab le 0 Not Available MILLICENTANNIE CALVILLO [facility] 10/27/2024 14:50:57 levof loxac in 500 mg table t 5 14:00:18 TAKE ONE TABL ET BY FLAKITO Blake ONCE DOROTEO Y FOR SIX DAYS active Not Available Not availab le 0 Not Available Not Available [facility] - External Data Service - prod 12/12/2024 14:00:18 OneTo uch Delic a Plus Jason t 33 gauge 5 02:18:00 USE TO test bloo d gluc ose EVER Y DAY active Not Available Not availab le 0 Not Available Not Available [facility] - External Data Service - prod 12/15/2024 02:18:00 hydra lazin e 100 mg table t 5 13:50:27 TAKE ONE TABL ET BY MOUT H THRE E TIME S DOROTEO Y active Not Available Not availab le 0 Not Available Not Available [facility] - External Data Service - prod 01/16/2025 13:50:27 labet alol 200 mg table t 5 13:50:27 TAKE ONE TABL ET BY MOUT H THRE E TIME S DOROTEO Y active Not Available Not availab le 0 Not Available Not Available [facility] - External Data Service - prod 01/16/2025 13:50:27 nicot ine 14 mg/24 hr daily trans derma l patch 5 13:50:27 PLAC E ONE PATC H ON THE SKIN ONE TIME DOROTEO Y AT THE SAME TIME active Not Available Not availab le 0 Not Available Not Available [facility] - External Data Service - prod 01/16/2025 13:50:27 nifed ipine ER 30 mg table t,ext ended relea se 24 hr 5 13:50:27 TAKE ONE TABL ET BY MOUT H one time EACH DAY BEFO RE DIANA KFAS T, DO not YANNICK HED CHEW OR SPLI T active Not Available Not availab le 0 Not Available Not Available [facility] - External Data Service - prod 01/16/2025 13:50:27 fluco nazol e 150 mg table t 5 13:50:28 TAKE ONE TABL ET BY MOUT H ONCE active Not Available Not availab le 0 Not Available Not Available [facility] - External Data Service - prod 01/16/2025 13:50:28 nitro furan toin monoh ydrat e/mac rocry stals 100 mg capsu le 5 13:50:28 take ONE CAPS ULES BY MOUT H TWIC E DOROTEO Y FOR PALAK N DAYS active Not Available Not availab le 0 Not Available Not Available [facility] - External Data Service - prod 01/16/2025 13:50:28 mary lou nolac tone 25 mg table t 5 13:50:28 TAKE ONE TABL ET BY MOUT H ONE TIME EACH DAY active Not Available Not availab le 0 Not Available Not Available [facility] - External Data Service - prod 01/16/2025 13:50:28 amlod ipine 10 mg table t 5 10:16:12 TAKE ONE TABL ET BY MOUT H ONE time each DAY active Not Available Not availab le 0 Not Available Not Available [facility] - External Data Service - prod 04/25/2025 10:16:12 calci triol 0.25 mcg capsu le 5 10:16:12 Take 1 caps ule (0.2 5 mcg tota l) by mout h 1 (one ) time each day active Not Available Not availab le 0 Not Available Not Available [facility] - External Data Service - prod 04/25/2025 10:16:12 Easy Touch Alcoh ol Prep Pads 5 10:16:12 USE TO test BLOO D GLUC OSE FOUR TIME S DOROTEO Y active Not Available Not availab le 0 Not Available Not Available [facility] - External Data Service - prod 04/25/2025 10:16:12 furos emide 20 mg table t 5 10:16:12 TAKE ONE TABL ET BY MOUT H EVER Y DAY active Not Available Not availab le 0 Not Available Not Available [facility] - External Data Service - prod 04/25/2025 10:16:12 lamot rigin e 25 mg table t 5 10:16:12 TAKE ONE TABL ET BY MOUT H TWIC E DOROTEO Y active Not Available Not availab le 0 Not Available Not Available [facility] - External Data Service - prod 04/25/2025 10:16:12 nifed ipine ER 60 mg table t,ext ended relea se 24 hr 5 10:16:12 TAKE ONE TABL ET BY MOUT H EVER Y MORN ING FOR FOR BLOO D PRES SURE active Not Available Not availab le 0 Not Available Not Available [facility] - External Data Service - prod 04/25/2025 10:16:12 OneTo uch Verio test strip s 5 10:16:12 USE TO test BLOO D GLUC OSE FOUR TIME S DOROTEO Y active Not Available Not availab le 0 Not Available Not Available [facility] - External Data Service - prod 04/25/2025 10:16:12 Symbi alf 160 mcg-4 .5 mcg/a ctuat ion HFA aeros ol inhal er 5 10:16:12 INHA LE 1-2 PUFF S EVER Y 4-6 HOUR S NEED ED SHOR TNES S OF DIANA TH active Not Available Not availab le 0 Not Available Not Available [facility] - External Data Service - prod 04/25/2025 10:16:12 atorv astat in 80 mg table t 5 10:16:13 TAKE ONE TABL ET BY MOUT H NIGH TLY AT BEDT ZINA FOR CHOL THOMAS ROL active Not Available Not availab le 0 Not Available Not Available [facility] - External Data Service - prod 04/25/2025 10:16:13 cloni dine 0.2 mg/24 hr weekl y trans derma l patch 5 10:16:13 PLAC E ONE PATC H onto THE SKIN ONCE a WEEK FOR FOR BLOO D PRES SURE active Not Available Not availab le 0 Not Available Not Available [facility] - External Data Service - prod 04/25/2025 10:16:13 hydra lazin e 50 mg table t 5 10:16:13 TAKE ONE TABL ET BY MOUT H EVER Y MORN ING AND ONE TABL ET EVER Y EVEN ING AND ONE TABL ET AT BEDT ZINA active Not Available Not availab le 0 Not Available Not Available [facility] - External Data Service - prod 04/25/2025 10:16:13 insul in lispr o (U-10 0) 100 unit/ mL subcu taneo us pen 5 10:16:[address] 2-14 UNIT S INTO THE SKIN THRE E TIME S DOROTEO Y BEFO RE MEAL S acco rdin g TO slid ing scal e (max 42u/ day) active Not Available Not availab le 0 Not Available Not Available [facility] - External Data Service - prod 04/25/2025 10:16:13 panto prazo le 40 mg table t,del ayed relea se 5 10:16:13 TAKE ONE TABL ET BY MOUT H ONCE doroteo y active Not Available Not availab le 0 Not Available Not Available [facility] - External Data Service - prod 04/25/2025 10:16:13 amoxi cilli n 500 mg-po tassi um clavu lanat e 125 mg table t 5 10:16:14 TAKE ONE TABL ET BY MOUT H EVER Y TWEL VE HOUR S FOR 10 DAYS 04/25 aborted Not Available Not availab le 0 Not Available Not Available [facility] - External Data Service - prod 04/25/2025 10:16:14 bumet anide 1 mg table t 5 10:16:14 TAKE ONE TABL ET BY MOUT H TWIC E DOROTEO Y active Not Available Not availab le 0 Not Available Not Available pedro - External Data Service - prod 04/25/2025 10:16:14 labet alol 100 mg table t 5 10:16:14 TAKE ONE TABL ET BY MOUT H THRE E TIME S DOROTEO Y FOR BLOO D PRES SURE active Not Available Not availab le 0 Not Available Not Available pedro - External Data Service - prod 04/25/2025 10:16:14 Lantu s Solos tar U-100 Insul in 100 unit/ mL (3 mL) subcu taneo us pen 5 10:16:[address] 34-4 0 UNIT S into THE SKIN NIGH TLY AT BEDT ZINA active Not Available Not availab le 0 Not Available Not Available pedro - External Data Service - prod 04/25/2025 10:16:14 sodiu m bicar bonat e 650 mg table t 5 10:16:14 TAKE TWO TABL ETS BY MOUT H TWIC E DOROTEO Y active Not Available Not availab le 0 Not Available Not Available pedro - External Data Service - prod 04/25/2025 10:16:14 budes onide -form hurley l HFA 80 mcg-4 .5 mcg/a ctuat ion aeros ol inhal er 5 13:54:01 inha le TWO puff s BY MOUT H TWIC E DOROTEO Y. MAY take bradford tion al ONE TO TWO puff s NEED ED ever y FOUR hour s FOR whee ze. RINS E MOUT H with wate r AFTE R USE TO redu ce afte rtas te AND inci denc e. DO not swal low active Not Available Not availab le 0 Not Available Not Available pedro - External Data Service - prod 05/06/2025 13:54:01 doxyc yclin e monoh ydrat e 100 mg capsu le 5 13:54:01 TAKE ONE CAPS ULE BY MOUT H TWIC E DOROTEO Y FOR PALAK N DAYS . TAKE WITH AT leas t EIGH T OUNC E of wate r, DO not lie down FOR 30 MATT TONY AFTE R active Not Available Not availab le 0 Not Available Not Available pedro - External Data Service - prod 05/06/2025 13:54:01 cefur oxime axeti l 500 mg table t 13:54:02 TAKE 1 TABL ET BY MOUT H TWIC E A DAY FOR 7 DAYS active Not Available Not availab le 0 Not Available Not Available pedro - External Data Service - prod 05/06/2025 13:54:02 FreeS tyle Aime 2 Plus Senso r devic e 5 13:54:02 plac e ONE sens or ON BACK OF UPPE R ARM EVER Y 15 DAYS active Not Available Not availab le 0 Not Available Not Available pedro - External Data Service - prod 05/06/2025 13:54:02 Omnip od 5 (G6/L ibre 2 Plus) subcu taneo us cartr idge 5 13:54:02 USE kit TO inje ct insu francisca into THE SKIN cont inuo usly , STUBBS GE pod EVER Y THRE E DAYS active Not Available Not availab le 0 Not Available Not Available pedro - External Data Service - prod 05/06/2025 13:54:02 Vitals Date Recorded Body height Body mass index (BMI) Body weight Heart rate Body temperature Systolic And Diastolic Provider Name and Address Organization Details Last Updated DateTime 4 175.26 cm 24.1 kg/m2 20617.5 6 g 72 /min 97.8 [degF] 136/84 mm[Hg] DONALD TAPIA [place] - [facility] 4 09:35:00 Date Recorded Body height Body mass index (BMI) Body weight Provider Name and Address Organization Details Last Updated DateTime 10/27/2024 175.26 cm 23.6 kg/m2 90582.78 g MILLICENT CALVILLO [facility] 10/27/2024 14:46:37 Date Recorded Body height Body mass index (BMI) Body weight Provider Name and Address Organization Details Last Updated DateTime 12/15/2024 175.26 cm 23.6 kg/m2 18016.78 g MILLICENT CALVILLO [facility] 12/15/2024 13:17:22 Date Recorded Body height Body mass index (BMI) Body weight Provider Name and Address Organization Details Last Updated DateTime 12/16/2024 175.26 cm 23.6 kg/m2 30292.78 g Gema Williamson [facility] 12/16/2024 15:08:30 Social History Social History Observation Description Date Observed Sex Unknown 04/27/2025 Legal Sex Female Status Not (finding) 05/18/20 25 No social history survey screeners recorded No social history SDOH screeners recorded Functional Status None recorded. No Functional Screening assessment recorded No Functional SDOH screeners recorded Mental Status None recorded. No Mental Screening assessment recorded No Mental SDOH screeners recorded Family History Nothing Reported. Medical History Condition Response Nerve Disorders Y Anemia Y Kidney/Bladder Problems Y Cholesterol Y Diabetes Y Inflammatory Joint disease Y Arthritis Y Stroke Y Headaches Y Hypertension Y Gynecological HistoryNo gynecological history recorded. Obstetrics History GPAL:G 0 P 0 0 0 0 Past Encounters Encounter ID Performer Location Encounter Start Date Encounter Closed Date Diagnosis/Indication Diagnosis SNOMED-CT Code Diagnosis ICD10 Code Diagnosis IMO Codes Diagnosis Note [id number] [facility] [address] [place] [address] 10/16/2023 09:01:26 11/03/2023 10:20:44 Pain of right hand 9203350724 90575 M79.641 Trigger th umb of right hand 0178549830 54834 M65.543 [id number] [facility] [place] [address] [place] [address] 10/27/2024 14:06:24 11/03/2024 11:59:49 Pain of left shoulder joint 1148814703 2316365 M25.512 598038 Muscle wea kness of upper limb 220639610 M62.81 [id number] Kimberly Sidhu PA-C [facility] [place] [address] [place] [place] [address] 12/15/2024 13:10:10 12/23/2024 14:52:41 Pain of left shoulder joint 1172958880 7357629 M25.512 415149 Shoulder g irdle weakness 217130610 R29.898 [id number] Mati Laguerre PA-C [facility] [address] [place] [address] 12/16/2024 14:43:29 12/28/2024 13:43:48 Pain of left knee joint 2167477908 85380 M25.562 253382 Contractur e of left knee joint 2062220735 19460 M24.624 5661058 Health Concerns Section Related Observation LastModified by Organization Detai ls LastModified Time None Recorded Concern Status LastModified by Organization Details LastModified Time None Recorded SDOH Concern Status LastModified by Organization Detai ls LastModified Time None Recorded Advance Directives Directive None Recorded Payers Insurance Date Sequence Insurance Name Policy Number Policy Ceja Covered Member ID Ceja Member ID Guarantor Name 05/06/2025 1 [facility] - DOS ON OR AFTER 2022 - MEDICARE [place]VANTAGE [place] (MEDICARE REPLACEMENT/AD VANTAGE - PPO) Kisha Alvarez [id number] Kisha Alvarez 12/16/2024 2 [place] [facility] Kisha Alvarez [id number] Kisha Alvarez Notes Date Note Type Note [...] weeks ago. Seen in the ER at [facility] July 27 found to have a [...] June 07 and was seen in the [facility] ED where it was reportedly reduced. Past [...] visit note. This note was generated with [facility] speech recognition sterile processing manager dictation software. Please excuse any errors that may have been overlooked during review of this note. Sometimes, these errors may affect the content or meaning of a given sentence. Please call for corrections. Kimberly Sidhu PA-C [address] [facility] [address], [place], [address], [facility] - [facility] 10/27/2024 16:22:22 12/15/2024 text/html I am seeing [...] visit note. This note was generated with [facility] speech recognition sterile processing manager dictation software. Please excuse any errors that may have been overlooked during review of this note. Sometimes, these errors may affect the content or meaning of a given sentence. Please call for corrections. Kimberly Sidhu PA-C [address], [place], [address], [facility] 12/20/2024 15:19:23 12/16/2024 text/html I am seeing [...] to the knee. Mati Laguerre PA-C [address], [place], [address], [facility] 12/16/2024 16:10:22 Care Team Name Role Member ID Specialty Address Phone POLO KAY Primary Care Provider [address] [place] [address] Tomas Mckenzie [place] OBGyn Episode No OBEpisode recorded.
[2025-05-18 06:56] LABS: MANUAL DIFF FLAG NO
--- OUTSIDE RECORDS SUMMARY | 2025-05-18 06:56 | XMS_ITS | Encounter Summary ---
Author Organization [facility] Address [address] [place] [address] Care Team Providers Care Career Placement Specialist Name Role Phone Eliza Polo DINAH Primary Care Provider [phone]- [phone] Encounter Details Date Type Department Care Team (Late st Contact Info) Description 06/22/2024 Lab Requisition [facility] - Main Lab [address] [facility] [place] [phone] Lazaro Santoyo MD [address] [place] [address] Type 2 diabetes mellitus without complications (CMS/HCC [...] STS [facility] General No Ene Moffett, ETHICAL HACKER Note: Pt will improve cognitive linguistic function to participate and communicate in basic ADLs supervision ST ST[facility] General No Ene Moffett, ETHICAL HACKER Note: Pt will participate with development of [...] mmol/L LAB CHEMISTRY METHOD 06/22/2024 11:[address] [facility] Potassium 4.7 3.5 - 5.5 mmol/L LAB CHEMISTRY METHOD 06/22/2024 11:[address] [facility] Chloride 103 96 - 110 mmol/L LAB CHEMISTRY METHOD 06/22/2024 11:[address] [facility] CO2 20(L) 21 - 32 mmol/L LAB CHEMISTRY METHOD 06/22/2024 11:[address] [facility] Anion Gap 10 3 - 11 LAB CHEMISTRY METHOD 06/22/2024 11:[address] [facility] Glucose 97 70 - 100 mg/dL LAB CHEMISTRY METHOD 06/22/2024 11:[address] [facility] BUN 41(H) 5 - 25 mg/dL LAB CHEMISTRY METHOD 06/22/2024 11:[address] [facility] Creatinine 2.09(H) 0.50 - 1.10 mg/dL LAB CHEMISTRY METHOD 06/22/2024 11:[address] [facility] eGFR 27(L) >=60 mL/min/1. 73m2 LAB CHEMISTRY METHOD 06/22/2024 11:[address] [facility] Comment:Calculation based on the Chronic Kidney Disease Epidemiology Collaboration (CKD-EPI) equation refit without adjustment for race. BUN/Creatinine Ratio 19.6 LAB CHEMISTRY METHOD 06/22/2024 11:[address] [facility] Calcium 8.6 8.5 - 10.5 mg/dL LAB CHEMISTRY METHOD 06/22/2024 11:24 AM EST [facility] Blood Venous blood specimen / Unknown Venipuncture / Unknown 06/22/2024 5:24 AM EST 06/22/2024 10:05 AM EST us Lazaro Santoyo MD LAB BLOOD ORDERABLES Final Resul t [facility] [address] [place] [address], documented in this encounter Visit Diagnoses Diagnosis [...] documented as of this encounter Care Teams Career Placement Specialist Relationship Specialty Start Date End Date Polo Kay NP [address] [place] [address] PCP - General Nurse Practitioner 12/28/24 documented as of this encounter
--- OUTSIDE RECORDS SUMMARY | 2025-05-18 06:56 | XMS_ITS | Encounter Summary ---
Author Organization [facility] Address [address] [place] [address] Care Team Providers Care Electronic Installer Name Role Phone Polo Kay NP Primary Care Provider [phone]- [phone] Encounter Details Date Type Department Care Team (Late st Contact Info) Description 06/25/2024 Lab Requisition [facility] - Main Lab [address] [facility] [place] [phone] Lazaro Santoyo MD [address] [place] [address] Hemiplegia and hemiparesis following cerebral infarction affecting [...] STS [facility] General No Ene Moffett, RAILROAD WORKER Note: Pt will improve cognitive linguistic function to participate and communicate in basic ADLs supervision ST STGs General No Ene Moffett, RAILROAD WORKER Note: Pt will participate with development of [...] mmol/L LAB CHEMISTRY METHOD 06/28/2024 12:23 PM [facility] Potassium 4.0 3.5 - 5.5 mmol/L LAB CHEMISTRY METHOD 06/28/2024 12:23 PM [facility] Chloride 108 96 - 110 mmol/L LAB CHEMISTRY METHOD 06/28/2024 12:23 PM [facility] CO2 19(L) 21 - 32 mmol/L LAB CHEMISTRY METHOD 06/28/2024 12:23 PM [facility] Anion Gap 10 3 - 11 LAB CHEMISTRY METHOD 06/28/2024 12:23 PM [facility] Glucose 152(H) 70 - 100 mg/dL LAB CHEMISTRY METHOD 06/28/2024 12:23 PM [facility] BUN 45(H) 5 - 25 mg/dL LAB CHEMISTRY METHOD 06/28/2024 12:23 PM [facility] Creatinine 2.21(H) 0.50 - 1.10 mg/dL LAB CHEMISTRY METHOD 06/28/2024 12:23 PM EST [facility] eGFR 25(L) >=60 mL/min/1. 73m2 LAB CHEMISTRY METHOD 06/28/2024 12:23 PM EST [facility] Comment:Calculation based on the Chronic Kidney Disease Epidemiology Collaboration (CKD-EPI) equation refit without adjustment for race. BUN/Creatinine Ratio 20.4 LAB CHEMISTRY METHOD 06/28/2024 12:23 PM [facility] Calcium 8.6 8.5 - 10.5 mg/dL LAB CHEMISTRY METHOD 06/28/2024 12:23 PM [facility] Blood Venous blood specimen / Unknown Venipuncture / Unknown 06/28/2024 5:44 AM EST 06/28/2024 11:23 AM EST us Lazaro Santoyo MD LAB BLOOD ORDERABLES Final Resul t [facility] [address] [place] [address], [place] [phone] * (ABNORMAL) Complete blood count (06/28/2024 5:44 AM EST) WBC 8.4 4.8 - 10.8 K/mcL LAB HEMETOLOGY METHOD 06/28/2024 11:40 AM [facility] RBC 2.80(L) 3.80 - 4.80 M/mcL LAB HEMETOLOGY METHOD 06/28/2024 11:40 AM [facility] Hemoglobin 8.0(L) 11.5 - 16.0 g/dL LAB HEMETOLOGY METHOD 06/28/2024 11:40 AM [facility] Hematocrit 25.1(L) 35.0 - 47.0 % LAB HEMETOLOGY METHOD 06/28/2024 11:40 AM [facility] MCV 90.9 79.0 - 98.0 FL LAB HEMETOLOGY METHOD 06/28/2024 11:40 AM EST [facility] MCH 29.0 27.0 - 32.0 pcg LAB HEMETOLOGY METHOD 06/28/2024 11:40 AM [facility] MCHC 31.9(L) 32.0 - 37.0 g/dL LAB HEMETOLOGY METHOD 06/28/2024 11:40 AM [facility] RDW 13.5 11.0 - 15.0 % LAB HEMETOLOGY METHOD 06/28/2024 11:40 AM [facility] Platelets 284 130 - 400 K/mcL LAB HEMETOLOGY METHOD 06/28/2024 11:40 AM [facility] MPV 10.1 7.0 - 11.0 FL LAB HEMETOLOGY METHOD 06/28/2024 11:40 AM [facility] NRBC 0.0 <1.0 % LAB HEMETOLOGY METHOD 06/28/2024 11:40 AM [facility] NRBC Absolute 0.00 <0.10 K/mcL LAB HEMETOLOGY METHOD 06/28/2024 11:40 AM [facility] Blood Venous blood specimen / Unknown Venipuncture / Unknown 06/28/2024 5:44 AM EST 06/28/2024 11:23 AM EST us Lazaro Santoyo MD LAB BLOOD ORDERABLES Final Resul t [facility] [address] [place] [address], documented in this encounter Visit Diagnoses Diagnosis [...] documented as of this encounter Care Teams Electronic Installer Relationship Specialty Start Date End Date Polo Kay NP [address] [place] [address] PCP - General Nurse Practitioner 12/28/24 documented as of this encounter
--- OUTSIDE RECORDS SUMMARY | 2025-05-18 06:56 | XMS_ITS | Continuity of Care Document ---
Author Organization [facility] [facility] Address [address] [place] [address] Care Team Providers Care Internal Wholesaler Name Role Phone HIM CCA OTHER Assessment Encounter Date Assessment Date Assessment LastModified by Organization Details LastModified Time 04/17/2025 04/17/2025 Evaluation in e field was performed by my airline captain colleague, as noted above, I provided real-time [...] Orders cephalexin 500 mg capsule [facility] [email or web address], [address] [place] [address], [phone], 17:32:43 cefuroxime axetil 500 mg tablet 2024 025 [id number], [address] [place], [address], 05:00:59 Patient TargetsNo targets recorded. Patient InstructionsNo instructions recorded. Reason for Referral None Reported. Medical Equipment None Reported. Allergies Allergen ID Allergen Name Allergen Category Reaction Reaction Severity Criticality Documentation Date Start Date Code Code System Note Provider Name and Address Organization Details Recorded Time amlodipin e medicatio n Not available Not available Not available 04/17/2025 16242 RxNorm Not Available [employer] - prod 17:28:34 64914 amlodipin e / olmesarta n medicatio n Not available Not available Not available 04/17/20252021 80313 15 RxNorm Not Available [employer] - prod 17:28:38 62803 latex environme nt,medica tion Not available Not available Not available 04/17/2025 77755 91 RxNorm Not Available [employer]_ [employer] - prod 17:28:39 Medications Name [...] ICD10 Code Diagnosis IMO Codes Diagnosis Note [id number] Elena Pabon MD [facility] ED Medical [facility] [address] [place] [address] 04/17/2025 17:27:57 04/17/2025 18:46:50 Cellulitis of lower leg 656741621 L03.116 67749636 Open wound of left lower leg [id number] 7633329 S81.802A 86719264 Health Concerns Section Related Observation LastModified by Organization Detai ls LastModified Time None Recorded Concern Status LastModified by Organization Details LastModified Time None Recorded Payers Encounter Date Sequence Insurance Name Policy Number Policy Ceja Covered Member ID Ceja Member ID Guarantor Name 04/17/2025 1 [facility] - DOS ON OR AFTER 2022 - DUAL ELIGIBLE - CORRECTION OPTIONS AND ONE CARE (MEDICARE REPLACEMENT/ADV ANTAGE - HMO) Kisha Alvarez [id number] Kisha Alvarez Notes Date Note Type Note [...] ..................... ..................... ..................... ..................... ..................... ..................... ............... Route Manager Note From [place]: Encountered patient seated [...] to the touch. Peripheral pulses present throughout. [facility] contacted: wound care performed, patients wound was cleansed with sterile water, then fortified with non-adhesive dressing and wrapped with gauze. 500mg of PO Keflex administered after medication r ights were reconciled with patient and family. [facility] states they will send [...] states she is comfortable remaining home today. [facility] Medication Orders: cephalexin 500 mg capsule: Administered ..................... ..................... ..................... ..................... ..................... ..................... ............... [facility] Consulted: Elena Pabon ..................... ..................... ..................... ..................... ..................... ..................... ............... Disposition: Fulfilled Elena Pabon MD [address] [place] [address],[address], [place], [address], [employer] 04/17/2025 18:18:04 OBGyn Episode No OBEpisode recorded.
--- OUTSIDE RECORDS SUMMARY | 2025-05-18 06:56 | XMS_ITS | Encounter Summary ---
Author Organization [facility] Address [address] [place] [address] Care Team Providers Care Automotive Center Manager Name Role Phone Eliza, Tylor DINAH Primary Care Provider +1- [phone] Encounter Details Date Type Department Care Team (Latest Contact Info) Description 08/02/2024 Lab Requisition [facility] - Main Lab [address] [facility] [place] [address] Rayo Stoner MD [address] [place] [address], [place] [phone] Essential (primary) hypertension; Type 2 diabetes mellitus [...] STS ST LTG General No Ene Moffett, NUCLEAR WEAPONS MECHANICAL SPECIALIST Note: Pt will improve cognitive linguistic function to participate and communicate in basic ADLs supervision ST STGs General No Ene Moffett, NUCLEAR WEAPONS MECHANICAL SPECIALIST Note: Pt will participate with development [...] LAB CHEMISTRY METHOD 08/02/2024 6:56 PM EDT [facility] Mean Bld Glu Estim. 183 mg/dL LAB CHEMISTRY METHOD 08/02/2024 6:56 PM EDT [facility] Blood Venous blood specimen / Unknown Venipuncture / Unknown 08/02/2024 10:39 AM EDT 08/02/2024 12:19 PM EDT us Rayo Stoner MD LAB BLOOD ORDERABLES Final R esult [facility] [address] [place] [address], * (ABNORMAL) Comprehensive metabolic panel (08/02/2024 10:39 AM EDT) Sodium 139 133 - 145 mmol/L LAB CHEMISTRY METHOD 08/02/2024 2:08 PM [facility] Potassium 4.4 3.5 - 5.5 mmol/L LAB CHEMISTRY METHOD 08/02/2024 2:08 PM [facility] Chloride 106 96 - 110 mmol/L LAB CHEMISTRY METHOD 08/02/2024 2:08 PM [facility] CO2 22 21 - 32 mmol/L LAB CHEMISTRY METHOD 08/02/2024 2:08 PM [facility] Anion Gap 11 3 - 11 LAB CHEMISTRY METHOD 08/02/2024 2:08 PM [facility] Glucose 147(H) 70 - 100 mg/dL LAB CHEMISTRY METHOD 08/02/2024 2:08 PM [facility] BUN 21 5 - 25 mg/dL LAB CHEMISTRY METHOD 08/02/2024 2:08 PM [facility] Creatinine 1.82(H) 0.50 - 1.10 mg/dL LAB CHEMISTRY METHOD 08/02/2024 2:08 PM [facility] eGFR 32(L) >=60 mL/min/1. 73m2 LAB CHEMISTRY METHOD 08/02/2024 2:08 PM [facility] Comment:Calculation based on the Chronic Kidney Disease Epidemiology Collaboration (CKD-EPI) equation refit without adjustment for race. BUN/Creatinine Ratio 11.5 LAB CHEMISTRY METHOD 08/02/2024 2:08 PM [facility] Calcium 8.4(L) 8.5 - 10.5 mg/dL LAB CHEMISTRY METHOD 08/02/2024 2:08 PM [facility] AST (SGOT) 12 10 - 42 unit/L LAB CHEMISTRY METHOD 08/02/2024 2:08 PM [facility] ALT (SGPT) 16 10 - 60 unit/L LAB CHEMISTRY METHOD 08/02/2024 2:08 PM [facility] Alkaline Phosphatase 120 42 - 121 unit/L LAB CHEMISTRY METHOD 08/02/2024 2:08 PM EDT [facility] Total Protein 5.7(L) 6.0 - 8.0 g/dL LAB CHEMISTRY METHOD 08/02/2024 2:08 PM EDT [facility] Albumin 2.5(L) 3.2 - 5.0 g/dL LAB CHEMISTRY METHOD 08/02/2024 2:08 PM EDT [facility] Total Bilirubin 0.4 0.0 - 1.4 mg/dL LAB CHEMISTRY METHOD 08/02/2024 2:08 PM EDT [facility] Blood Venous blood specimen / Unknown Venipuncture / Unknown 08/02/2024 10:39 AM EDT 08/02/2024 12:19 PM EDT us Rayo Stoner MD LAB BLOOD ORDERABLES Final R esult [facility] [address] [place] [address], * (ABNORMAL) Complete blood count (08/02/2024 10:39 AM EDT) WBC 8.4 4.8 - 10.8 K/mcL LAB HEMETOLOGY METHOD 08/02/2024 1:26 PM EDT [facility] RBC 3.00(L) 3.80 - 4.80 M/mcL LAB HEMETOLOGY METHOD 08/02/2024 1:26 PM EDT [facility] Hemoglobin 8.2(L) 11.5 - 16.0 g/dL LAB HEMETOLOGY METHOD 08/02/2024 1:26 PM EDT [facility] Hematocrit 25.7(L) 35.0 - 47.0 % LAB HEMETOLOGY METHOD 08/02/2024 1:26 PM EDT [facility] MCV 87.1 79.0 - 98.0 FL LAB HEMETOLOGY METHOD 08/02/2024 1:26 PM EDT [facility] MCH 27.8 27.0 - 32.0 pcg LAB HEMETOLOGY METHOD 08/02/2024 1:26 PM EDT [facility] MCHC 31.9(L) 32.0 - 37.0 g/dL LAB HEMETOLOGY METHOD 08/02/2024 1:26 PM EDT [facility] RDW 13.3 11.0 - 15.0 % LAB HEMETOLOGY METHOD 08/02/2024 1:26 PM EDT [facility] Platelets 241 130 - 400 K/mcL LAB HEMETOLOGY METHOD 08/02/2024 1:26 PM EDT [facility] MPV 10.1 7.0 - 11.0 FL LAB HEMETOLOGY METHOD 08/02/2024 1:26 PM EDT [facility] NRBC 0.0 <1.0 % LAB HEMETOLOGY METHOD 08/02/2024 1:26 PM EDT [facility] NRBC Absolute 0.00 <0.10 K/mcL LAB HEMETOLOGY METHOD 08/02/2024 1:26 PM EDT [facility] Blood Venous blood specimen / Unknown Venipuncture / Unknown 08/02/2024 10:39 AM EDT 08/02/2024 12:19 PM EDT Rayo Stoner MD LAB BLOOD ORDERABLES Final R esult [facility] [address] [place] [address], documented in this encounter Visit Diagnoses Diagnosis Essential (primary) hypertension Unspecified essential hypertension Type 2 diabetes mellitus without complications (CMS/HCC V24, CMS/HCC V28) Acute kidney failure, unspecified ([facility] V24) Acute kidney failure, unspecified documented in [...] documented as of this encounter Care Teams Automotive Center Manager Relationship Specialty Start Date End Date Polo Kay NP [address] [place] [id number] PCP - General Nurse Practitioner 12/28/24 documented as of this encounter
--- OUTSIDE RECORDS SUMMARY | 2025-05-18 06:56 | XMS_ITS | Data Portability ---
Author Organization [place] [facility] Address [address] [place] [address] Care Team Providers Care Employment Services Director Name Role Phone HIM CCA OTHER Assessment Encounter Date Assessment Date Assessment LastModified by Organization Details LastModified Time 04/20/2024 04/20/2024 I provided real -time medical direction via phone for this encounter and was available for additional phone-based assistance as needed. I have reviewed and agree with the Assessment and Plan as documented by the Assistant Auto Center Manager. Patient given the opportunity to ask questions. Our service contacted for an assessment of: chronic left should pain As per above, patient with chronic left shoulder pain. Fell at rehab approx 6 months ago and states that her pain is worse since then. Denies loss of function but does have some debility associated with the pain. Per garnett feeder on the scene, VSS, NAD. No obvious [...] available 04/20/2024 12:22:08 04/17/2025 04/17/2025 Evaluation in [facility] field was performed by my garnett feeder colleague, as noted above, I provided real-time [...] Orders cephalexin 500 mg capsule 2024 [email or web address], [address], [place], [phone], 17:32:43 cefuroxime axetil 500 mg tablet 2024 025 [id number], [address] [facility], [place], [address], 05:00:59 Patient TargetsNo targets recorded. Patient InstructionsNo instructions recorded. Reason for Referral None Reported. Medical Equipment None Reported. Allergies Allergen ID Allergen Name Allergen Category Reaction Reaction Severity Criticality Documentation Date Start Date Code Code System Note Provider Name and Address Organization Details Recorded Time amlodipin e medicatio n Not available Not available Not available 04/17/2025 55514 RxNorm Not Available [employer] - prod 17:28:34 62395 amlodipin e / olmesarta n medicatio n Not available Not available Not available 04/17/20252021 71320 15 RxNorm Not Available [employer] [facility] NCR [employer] 17:28:38 05752 latex environme nt,medica tion Not available Not available Not available 04/17/2025 01092 91 RxNorm Not Available [employer] [facility] 17:28:39 Medications Name Sig Start Date Stop [...] ICD10 Code Diagnosis IMO Codes Diagnosis Note [id number] Jeanie Paige MD Main - [facility] [address] [place] [phone] 04/20/2024 11:35:47 04/20/2024 20:50:45 Pain of left shoulder joint [id number] M25.512 [id number] Elena Pabon MD Main-[facility] [address] [phone] 04/17/2025 17:27:57 04/17/2025 18:46:50 Cellulitis of lower leg 112611976 L03.116 [id number] Open wound of left lower leg [id number] 1194598 S81.802A [id number] Health Concerns Section Related Observation LastModified by Organization Detai ls LastModified Time None Recorded Concern Status LastModified by Organization Details LastModified Time None Recorded Advance Directives Directive None Recorded Payers Insurance Date Sequence Insurance Name Policy Number Policy Ceja Covered Member ID Ceja Member ID Guarantor Name 04/30/2025 1 [facility] - DOS ON OR AFTER 2022 - DUAL ELIGIBLE - LONGTERM OPTIONS AND ONE CARE (MEDICARE REPLACEMENT/ADV ANTAGE - HMO) Kisha Saez [id number] Kisha Alvarez Notes Date Note Type Note [...] ..................... ..................... ..................... ..................... ..................... ..................... ............... Assistant Auto Center Manager Note From Cassius Rg: This 59-year-old female [...] ..................... ..................... ..................... ..................... ..................... ..................... ............... [facility] Consulted: Jeanie Paige ..................... ..................... ..................... ..................... ..................... ..................... ............... Disposition: Indu Paige MD [address] [facility],[address], [place], [address], [place] [employer] 04/20/2024 12:22:32 04/17/2025 text/html ROS as noted [...] ..................... ..................... ..................... ..................... ..................... ..................... ............... Assistant Auto Center Manager Note From Macho Logan: Encountered patient [...] touch. Peripheral pulses present throughout. [facility] contacted: wound care performed, patients wound was cleansed with sterile water, then fortified with non-adhesive dressing and wrapped with gauze. 500mg of PO Keflex administered after medication r ights were reconciled with patient and family. [facility] states they will send a prescription for [...] states she is comfortable remaining home today. [facility] Medication Orders: cephalexin 500 mg capsule: Administered ..................... ..................... ..................... ..................... ..................... ..................... ............... [facility] Consulted: Elena Pabon ..................... ..................... ..................... ..................... ..................... ..................... ............... Disposition: Fulfilled Elena Pabon MD [address] [place] [address],[address], [place], [address], [employer] [facility] 04/17/2025 18:18:04 OBGyn Episode No OBEpisode recorded.
--- OUTSIDE RECORDS SUMMARY | 2025-05-18 06:56 | XMS_ITS | Encounter Summary ---
Author Organization [facility] Address [address] [place] [address] Care Team Providers Care Parking Supervisor Name Role Phone Polo Kay NP Primary Care Provider +1- [phone] Encounter Details Date Type Department Care Team (Late st Contact Info) Description 06/23/2024 Lab Requisition [facility] - Main Lab [address] [facility] [place] [phone] Lazaro Santoyo MD [address] [place] [address] Dehydration Social History Tobacco Use Types Packs/Day [...] STS ST LTG General No Ene Moffett, BPM ARCHITECT Note: Pt will improve cognitive linguistic function to participate and communicate in basic ADLs supervision ST STGs General No Ene Moffett, BPM ARCHITECT Note: Pt will participate with development [...] mmol/L LAB CHEMISTRY METHOD 06/23/2024 4:46 PM [facility] Potassium 4.4 3.5 - 5.5 mmol/L LAB CHEMISTRY METHOD 06/23/2024 4:46 PM [facility] Chloride 103 96 - 110 mmol/L LAB CHEMISTRY METHOD 06/23/2024 4:46 PM [facility] CO2 22 21 - 32 mmol/L LAB CHEMISTRY METHOD 06/23/2024 4:46 PM [facility] Anion Gap 9 3 - 11 LAB CHEMISTRY METHOD 06/23/2024 4:46 PM [facility] Glucose 57(L) 70 - 100 mg/dL LAB CHEMISTRY METHOD 06/23/2024 4:46 PM [facility] BUN 43(H) 5 - 25 mg/dL LAB CHEMISTRY METHOD 06/23/2024 4:46 PM [facility] Creatinine 2.02(H) 0.50 - 1.10 mg/dL LAB CHEMISTRY METHOD 06/23/2024 4:46 PM [facility] eGFR 28(L) >=60 mL/min/1. 73m2 LAB CHEMISTRY METHOD 06/23/2024 4:46 PM [facility] Comment:Calculation based on the Chronic Kidney Disease Epidemiology Collaboration (CKD-EPI) equation refit without adjustment for race. BUN/Creatinine Ratio 21.3 LAB CHEMISTRY METHOD 06/23/2024 4:46 PM [facility] Calcium 8.3(L) 8.5 - 10.5 mg/dL LAB CHEMISTRY METHOD 06/23/2024 4:46 PM [facility] Blood Venous blood specimen / Unknown Venipuncture / Unknown 06/23/2024 8:18 AM EST 06/23/2024 11:46 AM EST us Lazaro Santoyo MD LAB BLOOD ORDERABLES Final Resul t [facility] [address] [place] [address], documented in this encounter Visit Diagnoses Diagnosis [...] documented as of this encounter Care Teams Parking Supervisor Relationship Specialty Start Date End Date Polo Kay NP [address] [place] [address] PCP - General Nurse Practitioner 12/28/24 documented as of this encounter
--- OUTSIDE RECORDS SUMMARY | 2025-05-18 06:56 | XMS_ITS | Encounter Summary ---
Author Organization [facility] Address [address] [place] [address] Care Team Providers Care Crm Architect Name Role Phone Polo Kay NP Primary Care Provider +1- [phone] Encounter Details Date Type Department Care Team (Late st Contact Info) Description 06/24/2024 Lab Requisition [facility] - Main Lab [address] [facility] [place] [phone] Lazaro Santoyo MD [address] [place] [address] Dehydration Social History Tobacco Use Types Packs/Day [...] STS ST LTG General No Ene Moffett, FAST FOOD TEAM MEMBER Note: Pt will improve cognitive linguistic function to participate and communicate in basic ADLs supervision ST STGs General No Ene Moffett, FAST FOOD TEAM MEMBER Note: Pt will participate with development of [...] mmol/L LAB CHEMISTRY METHOD 06/25/2024 9:55 AM [facility] Potassium 4.5 3.5 - 5.5 mmol/L LAB CHEMISTRY METHOD 06/25/2024 9:55 AM [facility] Chloride 104 96 - 110 mmol/L LAB CHEMISTRY METHOD 06/25/2024 9:55 AM [facility] CO2 24 21 - 32 mmol/L LAB CHEMISTRY METHOD 06/25/2024 9:55 AM [facility] Anion Gap 7 3 - 11 LAB CHEMISTRY METHOD 06/25/2024 9:55 AM [facility] Glucose 96 70 - 100 mg/dL LAB CHEMISTRY METHOD 06/25/2024 9:55 AM [facility] BUN 53(H) 5 - 25 mg/dL LAB CHEMISTRY METHOD 06/25/2024 9:55 AM [facility] Creatinine 2.00(H) 0.50 - 1.10 mg/dL LAB CHEMISTRY METHOD 06/25/2024 9:55 AM [facility] eGFR 28(L) >=60 mL/min/1. 73m2 LAB CHEMISTRY METHOD 06/25/2024 9:55 AM [facility] Comment:Calculation based on the Chronic Kidney Disease Epidemiology Collaboration (CKD-EPI) equation refit without adjustment for race. BUN/Creatinine Ratio 26.5 LAB CHEMISTRY METHOD 06/25/2024 9:55 AM [facility] Calcium 8.5 8.5 - 10.5 mg/dL LAB CHEMISTRY METHOD 06/25/2024 9:55 AM EST [facility] Blood Venous blood specimen / Unknown Venipuncture / Unknown 06/25/2024 7:50 AM EST 06/25/2024 9:05 AM EST Lazaro Santoyo MD LAB BLOOD ORDERABLES Final Resul t [facility] [address] [place] [address], documented in this encounter Visit Diagnoses Diagnosis [...] documented as of this encounter Care Teams Crm Architect Relationship Specialty Start Date End Date Polo Kay NP [address] [place] [address] PCP - General Nurse Practitioner 12/28/24 documented as of this encounter
--- OUTSIDE RECORDS SUMMARY | 2025-05-18 06:56 | XMS_ITS | Clinical Summary ---
Author Organization 175 [facility] Address [address] [place] [address] Phone Care Team Providers Care Mop Handle Assembler Name Role Phone Polo Kay NP Primary Care Provider [phone] Allergies No known active allergies Medications insulin [...] a day. 90 each 5 Active cloNIDine ([id number]-5 ) 0.2 mg/[address] 1 patch [...] for 10 days. 10 each 5 Active budesonide-form oteroL (SYMBICORT) 80-4.5 mcg/actuation inhaler Inhale 2 puffs by mouth 2 (two) times a day. May take additional 1 to 2 puffs as needed every 4 hours for wheeze. Rinse mouth with water after use to reduce aftertaste and incidence of candidiasis. Do not swallow. 1 each 5 Active doxycycline (MONODOX) 100 mg capsule Take 1 capsule (100 mg total) by mouth 2 (two) times a day for 7 days. Take with at least 8 ounces (large glass) of water, do not lie down for 30 minutes after 14 each 5 05/07/20 25 Active Problems Problem Noted Date Diagnosed Date [...] 2:27 PM EST - 04/30/2025 6:46 PM [facility] [address] [place] [address] Iggy Tse MD Pneumonia of left lung due to infectious organism, unspecified part of lung (Primary Dx); Mild intermittent asthma with exacerbation Discharge Disposition: Home or Self Care 04/04/2025 8:23 PM EST - 04/05/2025 10:24 AM [facility] [address] [place] [address] Zoila Steele MD Leg edema, left (Primary Dx) Discharge Disposition: Home or Self Care 03/22/2025 Telephone [facility] [address] [place] [address] Dr [address] [place] [phone] Jesus Quiroz MD 02/21/2025 5:59 PM EDT - 02/22/2025 1:42 AM EDT Emergency [facility] [address] [place] [id number] Josh Huynh MD Seizure ([facility] V24, [facility] V28) (Primary Dx) Discharge Disposition: Home or Self Care from Last 3 Months Immunizations Immunization Administration [...] (chronic kidney disease) CVA (cerebral vascular accident) ([facility] V24, [facility] V28) L sided hemiparesis Smoker Hypertension Hyperlipidemia Diabetes mellitus ([facility] V24, [facility] V28) CKD (chronic kidney disease) , stage III ([facility] V24, [facility] V28) Depression with anxiety Meade catheter in [...] your loved ones. For example, child care teacher or elderly care for an older [...] Patient-Stated? Author family goal General No Elena Wick OT Note: Help pt get better as much as possible ltg (8 visits) General On track( 025 2:03 PM EST) Elena Ward OT Note: PROM L shldr elevation at [...] STS ST LTG General No Ene Moffett, SPECIAL EFFECTS SPECIALIST Note: Pt will improve cognitive linguistic function to participate and communicate in basic ADLs supervision ST STGs General No Ene Moffett, SPECIAL EFFECTS SPECIALIST Note: Pt will participate with development [...] semantic cues Medical Devices Implanted Type Area Claims Processor Device Identifier Shelf Expiration Date Model / Serial / Lot Sponge Surgifoam Gel 12 X 7mm - [id number] Implanted:Qty: 1 on 02/01/2025 by Tamica Alvarado PA at [facility] Dominik Hemostasis Right: Flank [employer] [id number] 04/13/20281971 [id number] Device Clsur Angio-Seal 8f Vip Teru-Intv [id number] Implanted:Qty: 1 on 11/28/2023 by Dilip Fay MD TERUMO - INTERVENTIONAL SYSTEM 07/10/2024 [id number] / / [id number] Procedures Procedure Name Priority Date/Time Associated Diagnosis Comments XR CHEST 2 VIEWS STAT 04/30/2025 4:45 PM EST MCBE-QHH4-[id number], RSV, FLU A AND B QUALITATIVE RT-PCR, [...] AND DIFFERENTIAL STAT 02/21/2025 6:53 PM EDT OCCULT BLOOD STOOL, GUAIAC STAT 01/29/2025 4:00 AM EDT HEPATITIS C ANTIBODY Add-On 01/13/2025 [...] Signed Date: 04/30/2025 17:01 ET Workstation ID: [id number] Transcribed By: Self Edit Transcribed Date: 04/30/2025 [...] Dictated Date: 04/30/2025 16:57 ET Assigned Physician: Cheryl, Shaq F Reviewed and Electronically Signed By: Shaq Luna F Signed Date: 04/30/2025 17:01 ET Workstation ID: [id number] Transcribed By: Self Edit Transcribed Date: 04/30/2025 16:57 ET Iggy Tse MD IMG XR PROCEDURES Final Result * QHCG-SOR3-IVC, RSV, Influenza A and B qualitative RT-PCR (04/30/2025 2:59 PM EST) [facility] Influenza A PCR Not Detected Not Detected LAB MICROBIOLOGY METHOD 04/30/2025 3:[address] [facility] Influenza B PCR Not Detected Not Detected LAB MICROBIOLOGY METHOD 04/30/2025 3:[address] [facility] RSV PCR Not Detected Not Detected LAB MICROBIOLOGY METHOD 04/30/2025 3:[address] [facility] SARS COV-2 Not Detected Not Detected LAB MICROBIOLOGY METHOD 04/30/2025 3:[address] [facility] Swab Both anterior nares / Unknown Non-blood Collection / Unknown 04/30/2025 2:59 PM EST 04/30/2025 3:08 PM EST Iggy Tse MD LAB [facility] - [facility] Final Result [facility] [address] [place] [address], * ECG-Annotated (04/06/2025) us Provider Onbase MD ECG ORDERABLES Final Result * (ABNORMAL) Basic metabolic panel (04/05/2025 5:59 AM EST) Only the most recent of2 resultswithin the time period is included. [facility] Sodium 127(L) 133 - 145 mmol/L LAB CHEMISTRY METHOD 04/05/2025 6:[address] [facility] Potassium 4.7 3.5 - 5.5 mmol/L LAB CHEMISTRY METHOD 04/05/2025 6:48 AM [facility] Comment:Hemolysis present Chloride 97 96 - 110 mmol/L LAB CHEMISTRY METHOD 04/05/2025 6:48 AM [facility] CO2 19(L) 21 - 32 mmol/L LAB CHEMISTRY METHOD 04/05/2025 6:48 AM [facility] Anion Gap 11 3 - 11 LAB CHEMISTRY METHOD 04/05/2025 6:48 AM [facility] Glucose 170(H) 70 - 100 mg/dL LAB CHEMISTRY METHOD 04/05/2025 6:48 AM [facility] BUN 39(H) 5 - 25 mg/dL LAB CHEMISTRY METHOD 04/05/2025 6:48 AM [facility] Creatinine 3.62(H) 0.50 - 1.10 mg/dL LAB CHEMISTRY METHOD 04/05/2025 6:48 AM [facility] eGFR 14(L) >=60 mL/min/1. 73m2 LAB CHEMISTRY METHOD 04/05/2025 6:48 AM [facility] Comment:Calculation based on the Chronic Kidney Disease Epidemiology Collaboration (CKD-EPI) equation refit without adjustment for race. BUN/Creatinine Ratio 10.8 LAB CHEMISTRY METHOD 04/05/2025 6:48 AM [facility] Calcium 8.8 8.5 - 10.5 mg/dL LAB CHEMISTRY METHOD 04/05/2025 6:48 AM [facility] Blood Venous blood specimen / Unknown Venipuncture / Unknown 04/05/2025 5:59 AM EST 04/05/2025 6:06 AM EST us Jd Lugo MD LAB BLOOD ORDERABLES Final Result [facility] [address] [place] [address], * ECG 12 lead (04/05/2025 12:11 AM EST) Only the most recent of2 resultswithin the time period is included. Ventricular Rate ECG 87 BPM GEMUSE Atrial Rate 87 BPM GEMUSE P-R Interval 194 ms GEMUSE QRS Duration 74 ms GEMUSE Q-T Interval 366 ms GEMUSE QTc 440 ms GEMUSE P Wave [place] 64 degrees GEMUSE R [place] 24 degrees GEMUSE T [place] 20 degrees GEMUSE ECG Interpretation Normal sinus rhythm Anterior infarct (cited on or before 29-DEC-2024) Abnormal ECG When compared with ECG of 04-APR-2025 21:03, No significant change was found Confirmed by MD Jairo, Bradford ([id number]) on 04/05/2025 5:17:36 PM GEMUSE 04/05/2025 12:1 1 AM EST 04/05/2025 5:17 PM EST Zoila Steele MD ECG ORDERABLES Final Result Performing Organization Address [facility] de Phone Number GEMUSE * Troponin I high sensitivity (04/05/2025 12:00 AM EST) Only the most recent of2 resultswithin the time period is included. Pathologist [facility] High Sensitivity Troponin I 9 <=54 ng/L LAB CHEMISTRY METHOD 04/05/2025 1:[address] [facility] Blood Venous blood specimen / Unknown Venipuncture / Unknown 04/05/2025 12:00 AM EST 04/05/2025 12:[address] [facility] - 04/05/2025 1:12 AM EST High levels of biotin in samples may falsely decrease hsTroponin values. Use caution when interpreting hsTroponin results in patients taking biotin who exhibit renal impairment (eGFR <60) or in patients taking more than 20 mg/day of biotin. Zoila Steele MD LAB BLOOD ORDERABLES Final Res ult Performing Organization Address City/[facility]/ZIP Co de Phone Number [facility] [address] [place] [address], [place] [phone] * XR Chest 1 View (04/04/2025 10:40 PM EST) Anatomical Region Laterality Modality Body Radiographic Susan ging 04/05/2025 8:14 AM EST Impressions 04/05/2025 8:17 AM EST Impression: Improved pleural parenchymal process at the left base since 01/29/25. Telerad JACEK ([id number]) -------- FINAL REPORT -------- Dictated By: Aleena Souza Dictated Date: 04/05/2025 08:14 ET Assigned Physician: Aleena Souza Reviewed and Electronically Signed By: Aleena Souza Signed Date: 04/05/2025 08:17 ET Workstation ID: [id number] Transcribed By: Self Edit Transcribed Date: 04/05/2025 [...] at the left base since 01/29/25. Telerad PA ([id number]) -------- FINAL REPORT -------- Dictated By: Aleena Souza Dictated Date: 04/05/2025 08:14 ET Assigned Physician: Aleena Souza Reviewed and Electronically Signed By: Aleena Souza Signed Date: 04/05/2025 08:17 ET Workstation ID: [id number] Transcribed By: Self Edit Transcribed Date: 04/05/2025 08:14 ET Zoila Steele MD IMG XR PROCEDURES Final Result * (ABNORMAL) CBC auto differential (04/04/2025 9:50 PM EST) Only the most recent of2 resultswithin the time period is included. WBC 8.9 4.8 - 10.8 K/mcL LAB HEMETOLOGY METHOD 04/04/2025 11:06 PM [facility] RBC 3.00(L) 3.80 - 4.80 M/mcL LAB HEMETOLOGY METHOD 04/04/2025 11:06 PM [facility] Hemoglobin 9.0(L) 11.5 - 16.0 g/dL LAB HEMETOLOGY METHOD 04/04/2025 11:06 PM [facility] Hematocrit 27.6(L) 35.0 - 47.0 % LAB HEMETOLOGY METHOD 04/04/2025 11:06 PM [facility] MCV 90.8 79.0 - 98.0 FL LAB HEMETOLOGY METHOD 04/04/2025 11:06 PM [facility] MCH 29.6 27.0 - 32.0 pcg LAB HEMETOLOGY METHOD 04/04/2025 11:06 PM [facility] MCHC 32.6 32.0 - 37.0 g/dL LAB HEMETOLOGY METHOD 04/04/2025 11:06 PM [facility] RDW 14.4 11.0 - 15.0 % LAB HEMETOLOGY METHOD 04/04/2025 11:06 PM [facility] Platelets 276 130 - 400 K/mcL LAB HEMETOLOGY METHOD 04/04/2025 11:06 PM [facility] Comment:reviewed by slide MPV 10.7 7.0 - 11.0 FL LAB HEMETOLOGY METHOD 04/04/2025 11:06 PM [facility] NRBC 0.0 <1.0 % LAB HEMETOLOGY METHOD 04/04/2025 11:06 PM [facility] NRBC Absolute 0.00 <0.10 K/mcL LAB HEMETOLOGY METHOD 04/04/2025 11:06 PM [facility] Neutrophils Relative 76.7 % LAB HEMETOLOGY METHOD 04/04/2025 11:06 PM [facility] Lymphocytes Relative 13.1 % LAB HEMETOLOGY METHOD 04/04/2025 11:06 PM [facility] Monocytes Relative 6.5 % LAB HEMETOLOGY METHOD 04/04/2025 11:06 PM [facility] Eosinophils Relative 2.4 % LAB HEMETOLOGY METHOD 04/04/2025 11:06 PM [facility] Basophils Relative 0.3 % LAB HEMETOLOGY METHOD 04/04/2025 11:06 PM [facility] Immature Granulocytes Relative 1.0 % LAB HEMETOLOGY METHOD 04/04/2025 11:[address] [facility] Neutrophils Absolute 6.80 1.50 - 7.00 K/mcL LAB HEMETOLOGY METHOD 04/04/2025 11:[address] [facility] Lymphocytes Absolute 1.16 1.00 - 5.00 K/mcL LAB HEMETOLOGY METHOD 04/04/2025 11:[address] [facility] Monocytes Absolute 0.58 0.20 - 1.00 K/mcL LAB HEMETOLOGY METHOD 04/04/2025 11:[address] [facility] Eosinophils Absolute 0.21 0.00 - 0.50 K/mcL LAB HEMETOLOGY METHOD 04/04/2025 11:[address] [facility] Basophils Absolute 0.03 0.00 - 0.20 K/mcL LAB HEMETOLOGY METHOD 04/04/2025 11:06 PM [facility] Immature Granulocytes Absolute 0.09(H) 0.00 - 0.03 K/mcL LAB HEMETOLOGY METHOD 04/04/2025 11:06 PM [facility] Blood Venous blood specimen / Unknown Venipuncture / Unknown 04/04/2025 9:50 PM EST 04/04/2025 10:28 PM EST us Zoila Steele MD LAB BLOOD ORDERABLES Final Res ult [facility] [address] [place] [address], * (ABNORMAL) B-type natriuretic peptide (04/04/2025 9:50 PM EST) BNP 526(H) <=100 pcg/mL LAB CHEMISTRY METHOD 04/04/2025 11:[address] [facility] Blood Venous blood specimen / Unknown Venipuncture / Unknown 04/04/2025 9:50 PM EST 04/04/2025 10:28 PM EST us Zoila Steele MD LAB BLOOD ORDERABLES Final Res ult Performing Organization Address City/[facility]/ZIP Co de Phone Number [facility] [address] [place] [address], [place] [phone] * (ABNORMAL) Magnesium (04/04/2025 9:50 PM EST) Only the most recent of2 resultswithin the time period is included. Pathologist [facility] Magnesium 1.8(L) 1.9 - 2.6 mg/dL LAB CHEMISTRY METHOD 04/04/2025 11:[address] [facility] Blood Venous blood specimen / Unknown Venipuncture / Unknown 04/04/2025 9:50 PM EST 04/04/2025 10:28 PM EST us Zoila Steele MD LAB BLOOD ORDERABLES Final Res ult Performing Organization Address [facility]/ZIP Co de Phone Number [facility] [address] [place] [address], [place] [phone] * Lipase (04/04/2025 9:50 PM EST) [facility] Lipase 30 13 - 75 unit/L LAB CHEMISTRY METHOD 04/04/2025 11:[address] [facility] Blood Venous blood specimen / Unknown Venipuncture / Unknown 04/04/2025 9:50 PM EST 04/04/2025 10:28 PM EST us Zoila Steele MD LAB BLOOD ORDERABLES Final Res ult Performing Organization Address City/[facility]/ZIP Co de Phone Number [facility] [address] [place] [address], [place] [phone] * (ABNORMAL) Comprehensive metabolic panel (04/04/2025 9:50 PM EST) Pathologist [facility] Sodium 135 133 - 145 mmol/L LAB CHEMISTRY METHOD 04/04/2025 11:03 PM [facility] Potassium 6.0(H) 3.5 - 5.5 mmol/L LAB CHEMISTRY METHOD 04/04/2025 11:03 PM [facility] Comment:Hemolysis present Chloride 110 96 - 110 mmol/L LAB CHEMISTRY METHOD 04/04/2025 11:03 PM [facility] CO2 20(L) 21 - 32 mmol/L LAB CHEMISTRY METHOD 04/04/2025 11:03 PM [facility] Anion Gap 5 3 - 11 LAB CHEMISTRY METHOD 04/04/2025 11:03 PM [facility] Glucose 217(H) 70 - 100 mg/dL LAB CHEMISTRY METHOD 04/04/2025 11:03 PM [facility] BUN 44(H) 5 - 25 mg/dL LAB CHEMISTRY METHOD 04/04/2025 11:03 PM [facility] Creatinine 3.71(H) 0.50 - 1.10 mg/dL LAB CHEMISTRY METHOD 04/04/2025 11:03 PM [facility] eGFR 13(L) >=60 mL/min/1. 73m2 LAB CHEMISTRY METHOD 04/04/2025 11:03 PM [facility] Comment:Calculation based on the Chronic Kidney Disease Epidemiology Collaboration (CKD-EPI) equation refit without adjustment for race. BUN/Creatinine Ratio 11.9 LAB CHEMISTRY METHOD 04/04/2025 11:03 PM [facility] Calcium 7.8(L) 8.5 - 10.5 mg/dL LAB CHEMISTRY METHOD 04/04/2025 11:03 PM [facility] AST (SGOT) 39 10 - 42 unit/L LAB CHEMISTRY METHOD 04/04/2025 11:03 PM [facility] ALT (SGPT) 33 10 - 60 unit/L LAB CHEMISTRY METHOD 04/04/2025 11:03 PM [facility] Alkaline Phosphatase 146(H) 42 - 121 unit/L LAB CHEMISTRY METHOD 04/04/2025 11:[address] [facility] Total Protein 5.1(L) 6.0 - 8.0 g/dL LAB CHEMISTRY METHOD 04/04/2025 11:03 PM [facility] Albumin 2.1(L) 3.2 - 5.0 g/dL LAB CHEMISTRY METHOD 04/04/2025 11:03 PM [facility] Total Bilirubin 0.4 0.0 - 1.4 mg/dL LAB CHEMISTRY METHOD 04/04/2025 11:03 PM [facility] Blood Venous blood specimen / Unknown Venipuncture / Unknown 04/04/2025 9:50 PM EST 04/04/2025 10:28 PM EST Zoila Steele MD LAB BLOOD ORDERABLES Final Res ult [facility] [address] [place] [address], [place] [phone] * Prolactin (02/21/2025 6:53 PM EDT) Prolactin 62.00 See Comment ng/mL LAB CHEMISTRY METHOD 02/21/2025 7:[address] [facility] Comment: Prolactin Reference Ranges (ng/mL) Non 2.2 - 30.3 8.1 - 347.6 Postmenopausal 0.7 - 31.5 Blood Venous blood specimen / Unknown Venipuncture / Unknown 02/21/2025 6:53 PM EDT 02/21/2025 6:57 PM EDT us Jerry READ LAB BLOOD ORDERABLES Final Result Performing Organization Address [facility]/ZIP Co de Phone Number [facility] [address] [place] [address], [place] [phone] * (ABNORMAL) Occult blood stool, guaiac (01/29/2025 4:00 AM EDT) Pathologist [facility] Occult Blood, Stool #1 Positive( A) Negative 01/29/2025 8:[address] [facility] Stool Non-blood Collection / Unknown 01/29/2025 4:00 AM EDT 01/29/2025 4:42 AM EDT Jd Lugo MD LAB BODY FLUIDS AND STOOLS ORDERABLES Final Result [facility] [address] [place] [address], [place] [phone] * Hepatitis C antibody (01/13/2025 5:55 AM EDT) [facility] Hepatitis C Antibody Negative Negative LAB CHEMISTRY METHOD 01/14/2025 1:[address] [facility] Blood Venous blood specimen / Unknown Venipuncture / Unknown 01/13/2025 5:55 AM EDT 01/13/2025 6:11 AM EDT Claude Martinez MD LAB BLOOD ORDERABLES Final Result Performing Organization Address City/[facility]/ZIP Co de Phone Number [facility] [address] [place] [address], [place] [phone] * HIV 1,2 antibody, p24 antigen with reflex to differentiation (01/13/2025 5:55 AM EDT) [facility] HIV Combo AB/AG Negative Negative LAB CHEMISTRY METHOD 01/14/2025 2:[address] [facility] Blood Venous blood specimen / Unknown Venipuncture / Unknown 01/13/2025 5:55 AM EDT 01/13/2025 6:[address] [facility] - 01/14/2025 2:44 AM EDT This [...] Martinez MD LAB BLOOD ORDERABLES Final Result Performing Organization Address [facility]/ZIP Co de Phone Number [facility] [address] [place] [address], [place] [phone] * (ABNORMAL) Microalbumin creatinine urine ratio (01/12/2025 11:26 AM EDT) Creatinine, Urine 36.0 mg/dL LAB CHEMISTRY METHOD 01/12/2025 2:[address] [facility] Microalb, Ur 5,170.0(H ) 0.0 - 29.0 mg/L LAB CHEMISTRY METHOD 01/12/2025 2:[address] [facility] Microalb/Crea t Ratio 14,361(H) <30 mg/g creat LAB CHEMISTRY METHOD 01/12/2025 2:[address] [facility] Urine Urine specimen obtained by clean catch procedure / Unknown Non-blood Collection / Unknown 01/12/2025 11:26 AM EDT 01/12/2025 1:21 PM EDT Alisa READ LAB URINE ORDERABLES Nancy l Result Performing Organization Address [facility]/ZIP Co de Phone Number [facility] [address] [place] [address], [place] [phone] * (ABNORMAL) Lipid panel with reflex to direct LDL (12/31/2024 6:11 AM EDT) Cholesterol 209(H) 0 - 200 mg/dL LAB CHEMISTRY METHOD 12/31/2024 5:[address] [facility] Triglycerides 191(H) 0 - 150 mg/dL LAB CHEMISTRY METHOD 12/31/2024 5:[address] [facility] HDL 71 >=40 mg/dL LAB CHEMISTRY METHOD 12/31/2024 5:[address] [facility] LDL Calculated 100 0 - 100 mg/dL LAB CHEMISTRY METHOD 12/31/2024 5:[address] [facility] Comment:Estimated LDL Calcul ated using equation: Total cholesterol - HDL cholesterol - (Triglycerides/5) VLDL Cholesterol Silvio 38.2 mg/dL LAB CHEMISTRY METHOD 12/31/2024 5:[address] [facility] Non HDL Chol. (LDL+VLDL) 138 <145 mg/dL LAB CHEMISTRY METHOD 12/31/2024 5:[address] [facility] Chol/HDL Ratio 2.9 0.0 - 4.4 LAB CHEMISTRY METHOD 12/31/2024 5:[address] [facility] Blood Venous blood specimen / Unknown Venipuncture / Unknown 12/31/2024 6:11 AM EDT 12/31/2024 6:49 AM EDT us Luis A Griffin MD LAB BLOOD ORDERABLES Final Resu lt [facility] [address] [place] [address], * (ABNORMAL) Hemoglobin A1c (12/31/2024 6:10 AM EDT) Hemoglobin A1C 6.8(H) <6.5 % LAB CHEMISTRY METHOD 12/31/2024 10:[address] [facility] Mean Bld Glu Estim. 148 mg/dL LAB CHEMISTRY METHOD 12/31/2024 10:[address] [facility] Blood Venous blood specimen / Unknown Venipuncture / Unknown 12/31/2024 6:10 AM EDT 12/31/2024 6:49 AM EDT us Luis A Griffin MD LAB BLOOD ORDERABLES Final Resu lt [facility] [address] [place] [address], * GRETA SCREENING DIGITAL (10/24/2020 3:42 PM EDT) Anatomical Region Laterality Modality Mammography 10/24/2020 2:52 PM EDT Narrative 10/24/2020 3:42 PM EDT [facility] Diagnostic Imaging Department [address] [place] [address] Patient: KISHA ALVAREZ/Age/Sex: 1965 - 55 - F Unit#: [id number] [facility] CLI Mnemonic/Ordering Site: [facility] Ordering Physician: POLO KAY NP [facility] Screening Digital - 10/24/20 - 1519 INDICATION: SCREENING COMPARISON: [facility] and outside mammograms dating back to 05/01/2011 TECHNIQUE: CC and MLO views of the breasts were obtained, using full field digital mammography with 3D tomosynthesis views in the MLO projection. Computer aided detection with the Neema 7.2-H was employed. FINDINGS: The breasts contain [...] target date for the next mammogram. [id number]) , [id number] Dictating Physician: PETRONA SAHA MD Electronically Signed by: PETRONA SAHA MD Dic Date/Time: 10/24/20 1536 Sign date/Time: 10/24/20 1542 Procedure Note Petrona Saha MD - 05/07/2022 [facility] Diagnostic Imaging Department [address] [place] [address] Patient: TORO ALVAREZLYN /Age/Sex: 1965 55 - F Unit#: [id number] Location/Status: [facility] Mnemonic/Ordering Site: [facility] Ordering Physician: POLO KAY FLIGHT MANAGER [facility] Screening Digital - 10/24/20 - 1849 INDICATION: SCREENING COMPARISON: [facility] and outside mammograms dating back to 05/01/2011 TECHNIQUE: CC and MLO views of the breasts were obtained, using full field digital mammography with 3D tomosynthesis views in the MLO projection. Computer aided detection with the Neema 7.2-H was employed. FINDINGS: The breasts contain [...] a target date for the next mammogram. [id number] / [id number]) , [id number] Dictating Physician: PETRONA SAHA MD Electronically Signed by: PETRONA SAHA MD Dic Date/Time: 10/24/20 1535 Sign date/Time: 10/24/20 154 Polo Kay NP IMG BI PROCEDURES Final Re sult from Last 3 Months or Most Recently Relevant to Health Maintenance Additional Health Concerns Infection Onset Date Last Indicated ESBL Comment:Escherichia coli (+)ESBL urine 12/29/2024 01/31/2025 Insurance [facility] MEDIC[facility] Member Subscriber Plan / Payer (Ef fective 2024-Present) Name:KISHA ALVAREZ Relation to Subscriber:Self Name:Kisha Mo Payer ID:[id number] Group ID:[id number] Type:Not on file Address: [place] [address] [address] [phone] [facility] Member Subscriber Plan / Payer (Ef fective 2024-Present) Name:KISHA ALVAREZ Relation to Subscriber:Self Name:Kisha Mo Payer ID:[id number] Group ID:[id number] Type:Not on file Address: [place] [address] [address] [phone] Advance Directives Documents on File Type Date Recorded Patient Machine Cell Tuber Expl anation Power of Bottle Filler 10/04/2024 8:26 PM Advance Directives and Living Will 08/24/2024 11:30 AM MOLST Advance Directives and Living Will 08/03/2024 2:52 PM Rosetta Alvarez [facility] Proxy - [facility] Advance Directives and Living Will 08/02/2024 10:37 [...] Healthcare Agent Relationshi p Communication Rosetta Alvarez [facility] Care Agent Yuridia Kim [facility] Care Agent Care Teams Mop Handle Assembler Relationship Specialty Start Date End Date Polo Kay NP [address] [place] [address] PCP - General Nurse Practitioner 12/28/24
--- OUTSIDE RECORDS SUMMARY | 2025-05-18 06:56 | XMS_ITS | Encounter Summary ---
Author Organization [facility] Address [address] [place] [address] Care Team Providers Care Director Traffic And Planning Name Role Phone Eliza Polo NIX Primary Care Provider +1- [phone] Encounter Details Date Type Department Care Team (Late st Contact Info) Description 07/08/2024 Lab Requisition [facility] - Main Lab [address] [facility] [place] [place] [phone] Lazaro Santoyo MD [address] [place] [address] Essential (primary) hypertension Social History Tobacco Use [...] fro STS LTG - PT General No oJhana To, PT Note: Pt will demonstrate gait with platform walker Pt will be min assist transfer SL to sitting Pt will demonstrate min assist STS ST LTG General No Ene Moffett, TRAVEL AGENCY MANAGER Note: Pt will improve cognitive linguistic function to participate and communicate in basic ADLs supervision ST STGs General No Ene Moffett, TRAVEL AGENCY MANAGER Note: Pt will participate with development [...] K/mcL LAB HEMETOLOGY METHOD 07/08/2024 1:16 PM [facility] RBC 2.60(L) 3.80 - 4.80 M/mcL LAB HEMETOLOGY METHOD 07/08/2024 1:16 PM [facility] Hemoglobin 7.2(L) 11.5 - 16.0 g/dL LAB HEMETOLOGY METHOD 07/08/2024 1:16 PM [facility] LAB Hematocrit 22.7(L) 35.0 - 47.0 % LAB HEMETOLOGY METHOD 07/08/2024 1:16 PM [facility] MCV 88.0 79.0 - 98.0 FL LAB HEMETOLOGY METHOD 07/08/2024 1:16 PM [facility] MCH 27.9 27.0 - 32.0 pcg LAB HEMETOLOGY METHOD 07/08/2024 1:16 PM [facility] MCHC 31.7(L) 32.0 - 37.0 g/dL LAB HEMETOLOGY METHOD 07/08/2024 1:16 PM [facility] RDW 13.2 11.0 - 15.0 % LAB HEMETOLOGY METHOD 07/08/2024 1:16 PM [facility] Platelets 304 130 - 400 K/mcL LAB HEMETOLOGY METHOD 07/08/2024 1:16 PM [facility] MPV 10.0 7.0 - 11.0 FL LAB HEMETOLOGY METHOD 07/08/2024 1:16 PM EST [facility] NRBC 0.0 <1.0 % LAB HEMETOLOGY METHOD 07/08/2024 1:16 PM EST [facility] NRBC Absolute 0.00 <0.10 K/mcL LAB HEMETOLOGY METHOD 07/08/2024 1:16 PM EST [facility] Blood Venous blood specimen / Unknown Venipuncture / Unknown 07/08/2024 9:01 AM EST 07/08/2024 12:12 PM EST us Lazaro Santoyo MD LAB BLOOD ORDERABLES Final Resul t [facility] [address] [place] [address], [place] [phone] documented in this encounter Visit Diagnoses Diagnosis [...] documented as of this encounter Care Teams Director Traffic And Planning Relationship Specialty Start Date End Date Polo Kay NP [address] [place] [address] PCP - General Nurse Practitioner 12/28/24 documented as of this encounter
--- OUTSIDE RECORDS SUMMARY | 2025-05-18 06:56 | XMS_ITS | Encounter Summary ---
Author Organization [facility] Address [address] [place] [address] Care Team Providers Care Lathe Puller Name Role Phone Eliza Polo DINAH Primary Care Provider +1- [phone] Encounter Details Date Type Department Care Team (Late st Contact Info) Description 06/11/2024 Lab Requisition [facility] - Main Lab [address] [facility] [place] [phone] Lazaro Santoyo MD [address] [place] [address] Type 2 diabetes mellitus without complications (CMS/HCC [...] STS ST LTG General No Ene Moffett, PLATE CONDITIONER Note: Pt will improve cognitive linguistic function to participate and communicate in basic ADLs supervision ST STGs General No Ene Moffett, PLATE CONDITIONER Note: Pt will participate with development of [...] K/mcL LAB HEMETOLOGY METHOD 06/11/2024 12:31 PM [facility] LAB RBC 3.60(L) 3.80 - 4.80 M/mcL LAB HEMETOLOGY METHOD 06/11/2024 12:31 PM [facility] LAB Hemoglobin 10.2(L) 11.5 - 16.0 g/dL LAB HEMETOLOGY METHOD 06/11/2024 12:31 PM [facility] LAB Hematocrit 31.0(L) 35.0 - 47.0 % LAB HEMETOLOGY METHOD 06/11/2024 12:31 PM [facility] LAB MCV 87.3 79.0 - 98.0 FL LAB HEMETOLOGY METHOD 06/11/2024 12:31 PM [facility] LAB MCH 28.7 27.0 - 32.0 pcg LAB HEMETOLOGY METHOD 06/11/2024 12:31 PM [facility] LAB MCHC 32.9 32.0 - 37.0 g/dL LAB HEMETOLOGY METHOD 06/11/2024 12:31 PM [facility] LAB RDW 13.2 11.0 - 15.0 % LAB HEMETOLOGY METHOD 06/11/2024 12:31 PM [facility] LAB Platelets 269 130 - 400 K/mcL LAB HEMETOLOGY METHOD 06/11/2024 12:31 PM [facility] LAB MPV 10.7 7.0 - 11.0 FL LAB HEMETOLOGY METHOD 06/11/2024 12:31 PM [facility] LAB NRBC 0.0 <1.0 % LAB HEMETOLOGY METHOD 06/11/2024 12:31 PM [facility] LAB NRBC Absolute 0.00 <0.10 K/mcL LAB HEMETOLOGY METHOD 06/11/2024 12:31 PM [facility] Neutrophils Relative 75.9 % LAB HEMETOLOGY METHOD 06/11/2024 12:31 PM [facility] Lymphocytes Relative 14.9 % LAB HEMETOLOGY METHOD 06/11/2024 12:31 PM [facility] Monocytes Relative 5.8 % LAB HEMETOLOGY METHOD 06/11/2024 12:31 PM [facility] Eosinophils Relative 2.9 % LAB HEMETOLOGY METHOD 06/11/2024 12:31 PM [facility] Basophils Relative 0.2 % LAB HEMETOLOGY METHOD 06/11/2024 12:31 PM [facility] Immature Granulocytes Relative 0.3 % LAB HEMETOLOGY METHOD 06/11/2024 12:31 PM [facility] Neutrophils Absolute 6.74 1.50 - 7.00 K/mcL LAB HEMETOLOGY METHOD 06/11/2024 12:31 PM [facility] Lymphocytes Absolute 1.33 1.00 - 5.00 K/[facility] LAB HEMETOLOGY METHOD 06/11/2024 12:31 PM EST [facility] Monocytes Absolute 0.52 0.20 - 1.00 K[facility] LAB HEMETOLOGY METHOD 06/11/2024 12:31 PM EST [facility] Eosinophils Absolute 0.26 0.00 - 0.50 [facility] LAB HEMETOLOGY METHOD 06/11/2024 12:31 PM EST [facility] Basophils Absolute 0.02 0.00 - 0.20 K[facility] LAB HEMETOLOGY METHOD 06/11/2024 12:31 PM EST [facility] Immature Granulocytes Absolute 0.03 0.00 - 0.03 K[facility] LAB HEMETOLOGY METHOD 06/11/2024 12:31 PM EST [facility] Blood Venous blood specimen / Unknown Venipuncture / Unknown 06/11/2024 8:25 AM EST 06/11/2024 11:45 AM EST us Lazaro Santoyo MD LAB BLOOD ORDERABLES Final Resul t [facility] [address] [place] [address], * (ABNORMAL) Hemoglobin A1c (06/11/2024 8:25 AM EST) Hemoglobin A1C 10.0(H) <6.5 % LAB CHEMISTRY METHOD 06/11/2024 9:43 PM EST [facility] Mean Bld Glu Estim. 240 mg/dL LAB CHEMISTRY METHOD 06/11/2024 9:43 PM EST [facility] Blood Venous blood specimen / Unknown Venipuncture / Unknown 06/11/2024 8:25 AM EST 06/11/2024 11:45 AM EST us Lazaro Santoyo MD LAB BLOOD ORDERABLES Final Resul t [facility] [address] [place] [address], * (ABNORMAL) Comprehensive metabolic panel (06/11/2024 8:25 AM EST) Sodium 135 133 - 145 mmol/L LAB CHEMISTRY METHOD 06/11/2024 3:49 PM EST [facility] Potassium 3.9 3.5 - 5.5 mmol/L LAB CHEMISTRY METHOD 06/11/2024 3:49 PM [facility] Chloride 101 96 - 110 mmol/L LAB CHEMISTRY METHOD 06/11/2024 3:49 PM [facility] CO2 26 21 - 32 mmol/L LAB CHEMISTRY METHOD 06/11/2024 3:49 PM [facility] Anion Gap 8 3 - 11 LAB CHEMISTRY METHOD 06/11/2024 3:49 PM [facility] Glucose 90 70 - 100 mg/dL LAB CHEMISTRY METHOD 06/11/2024 3:49 PM [facility] BUN 32(H) 5 - 25 mg/dL LAB CHEMISTRY METHOD 06/11/2024 3:49 PM [facility] Creatinine 1.79(H) 0.50 - 1.10 mg/dL LAB CHEMISTRY METHOD 06/11/2024 3:49 PM [facility] LAB eGFR 32(L) >=60 mL/min/1. 73m2 LAB CHEMISTRY METHOD 06/11/2024 3:49 PM [facility] Comment:Calculation based on the Chronic Kidney Disease Epidemiology Collaboration (CKD-EPI) equation refit without adjustment for race. BUN/Creatinine Ratio 17.9 LAB CHEMISTRY METHOD 06/11/2024 3:49 PM [facility] Calcium 8.5 8.5 - 10.5 mg/dL LAB CHEMISTRY METHOD 06/11/2024 3:49 PM [facility] AST (SGOT) 23 10 - 42 unit/L LAB CHEMISTRY METHOD 06/11/2024 3:49 PM [facility] ALT (SGPT) 22 10 - 60 unit/L LAB CHEMISTRY METHOD 06/11/2024 3:49 PM [facility] Alkaline Phosphatase 93 42 - 121 unit/L LAB CHEMISTRY METHOD 06/11/2024 3:49 PM [facility] Total Protein 5.8(L) 6.0 - 8.0 g/dL LAB CHEMISTRY METHOD 06/11/2024 3:49 PM [facility] Albumin 2.8(L) 3.2 - 5.0 g/dL LAB CHEMISTRY METHOD 06/11/2024 3:49 PM [facility] Total Bilirubin 0.3 0.0 - 1.4 mg/dL LAB CHEMISTRY METHOD 06/11/2024 3:49 PM [facility] Blood Venous blood specimen / Unknown Venipuncture / Unknown 06/11/2024 8:25 AM EST 06/11/2024 11:45 AM EST us Lazaro Santoyo MD LAB BLOOD ORDERABLES Final Resul t [facility] [address] [place] [address], documented in this encounter Visit Diagnoses Diagnosis [...] as of this encounter Care Teams Lathe Puller Relationship Specialty Start Date End Date Polo Kay NP [address] [place] [address] PCP - General Nurse Practitioner 12/28/24 documented as of this encounter
--- OUTSIDE RECORDS SUMMARY | 2025-05-18 06:56 | XMS_ITS | Encounter Summary ---
Author Organization [facility] Address [address] [place] [address] Care Team Providers Care Batting Machine Operator Name Role Phone Polo Kay NP Primary Care Provider +1- [phone] Encounter Details Date Type Department Care Team (Late st Contact Info) Description 06/18/2024 Lab Requisition [facility] - Main Lab 299 [facility] [place] [phone] Lazaro Santoyo MD [address] [place] [address] Hemiplegia and hemiparesis following cerebral infarction affecting [...] STS ST LTG General No Ene Moffett, BLOCK CUBER Note: Pt will improve cognitive linguistic function to participate and communicate in basic ADLs supervision ST STGs General No Ene Moffett, BLOCK CUBER Note: Pt will participate with development of [...] mmol/L LAB CHEMISTRY METHOD 06/21/2024 1:00 PM [facility] Potassium 4.6 3.5 - 5.5 mmol/L LAB CHEMISTRY METHOD 06/21/2024 1:00 PM [facility] LAB Chloride 103 96 - 110 mmol/L LAB CHEMISTRY METHOD 06/21/2024 1:00 PM [facility] CO2 23 21 - 32 mmol/L LAB CHEMISTRY METHOD 06/21/2024 1:00 PM [facility] Anion Gap 9 3 - 11 LAB CHEMISTRY METHOD 06/21/2024 1:00 PM [facility] Glucose 126(H) 70 - 100 mg/dL LAB CHEMISTRY METHOD 06/21/2024 1:00 PM [facility] BUN 44(H) 5 - 25 mg/dL LAB CHEMISTRY METHOD 06/21/2024 1:00 PM [facility] Creatinine 2.40(H) 0.50 - 1.10 mg/dL LAB CHEMISTRY METHOD 06/21/2024 1:00 PM [facility] LAB eGFR 23(L) >=60 mL/min/1. 73m2 LAB CHEMISTRY METHOD 06/21/2024 1:00 PM [facility] LAB Comment:Calculation based on the Chronic Kidney Disease Epidemiology Collaboration (CKD-EPI) equation refit without adjustment for race. BUN/Creatinine Ratio 18.3 LAB CHEMISTRY METHOD 06/21/2024 1:00 PM [facility] Calcium 8.2(L) 8.5 - 10.5 mg/dL LAB CHEMISTRY METHOD 06/21/2024 1:00 PM [facility] LAB Blood Venous blood specimen / Unknown Venipuncture / Unknown 06/21/2024 6:17 AM EST 06/21/2024 10:42 AM EST us Lazaro Santoyo MD LAB BLOOD ORDERABLES Final Resul t [facility] [address] [place] [address], [place] [phone] * (ABNORMAL) Complete blood count (06/21/2024 6:17 AM EST) WBC 8.8 4.8 - 10.8 K/mcL LAB HEMETOLOGY METHOD 06/21/2024 11:08 AM [facility] RBC 2.90(L) 3.80 - 4.80 M/mcL LAB HEMETOLOGY METHOD 06/21/2024 11:08 AM [facility] Hemoglobin 8.3(L) 11.5 - 16.0 g/dL LAB HEMETOLOGY METHOD 06/21/2024 11:08 AM [facility] LAB Hematocrit 25.4(L) 35.0 - 47.0 % LAB HEMETOLOGY METHOD 06/21/2024 11:08 AM [facility] LAB MCV 87.3 79.0 - 98.0 FL LAB HEMETOLOGY METHOD 06/21/2024 11:08 AM [facility] LAB MCH 28.5 27.0 - 32.0 pcg LAB HEMETOLOGY METHOD 06/21/2024 11:08 AM [facility] LAB MCHC 32.7 32.0 - 37.0 g/dL LAB HEMETOLOGY METHOD 06/21/2024 11:08 AM [facility] LAB RDW 13.3 11.0 - 15.0 % LAB HEMETOLOGY METHOD 06/21/2024 11:08 AM [facility] LAB Platelets 310 130 - 400 K/mcL LAB HEMETOLOGY METHOD 06/21/2024 11:08 AM [facility] LAB MPV 10.6 7.0 - 11.0 FL LAB HEMETOLOGY METHOD 06/21/2024 11:08 AM [facility] LAB NRBC 0.0 <1.0 % LAB HEMETOLOGY METHOD 06/21/2024 11:08 AM [facility] LAB NRBC Absolute 0.00 <0.10 K/mcL LAB HEMETOLOGY METHOD 06/21/2024 11:08 AM [facility] LAB Blood Venous blood specimen / Unknown Venipuncture / Unknown 06/21/2024 6:17 AM EST 06/21/2024 10:44 AM EST us Lazaro Santoyo MD LAB BLOOD ORDERABLES Final Resul t [facility] [address] [place] [address], documented in this encounter Visit Diagnoses Diagnosis [...] documented as of this encounter Care Teams Batting Machine Operator Relationship Specialty Start Date End Date Polo Kay NP [address] [place] [address] PCP - General Nurse Practitioner 12/28/24 documented as of this encounter
--- OUTSIDE RECORDS SUMMARY | 2025-05-18 06:56 | XMS_ITS | Encounter Summary ---
Author Organization [facility] Address [address] [place] [address] Care Team Providers Care Laboratory Immunologist Name Role Phone Polo Kay NP Primary Care Provider +1- [phone] Encounter Details Date Type Department Care Team (Late st Contact Info) Description 06/16/2024 Lab Requisition [facility] - Main Lab [address] [facility] [place] [phone] Lazaro Santoyo MD [address] [place] [address] Essential (primary) hypertension; Hypertensive crisis, unspecified Social [...] ST LTG General No Ene Moffett, HEAD START TEACHER Note: Pt will improve cognitive linguistic function to participate and communicate in basic ADLs supervision ST STGs General No Ene Moffett, HEAD START TEACHER Note: Pt will participate with development of [...] mmol/L LAB CHEMISTRY METHOD 06/16/2024 11:44 AM [facility] Potassium 4.7 3.5 - 5.5 mmol/L LAB CHEMISTRY METHOD 06/16/2024 11:44 AM [facility] Chloride 102 96 - 110 mmol/L LAB CHEMISTRY METHOD 06/16/2024 11:44 AM [facility] CO2 23 21 - 32 mmol/L LAB CHEMISTRY METHOD 06/16/2024 11:44 AM [facility] Anion Gap 8 3 - 11 LAB CHEMISTRY METHOD 06/16/2024 11:44 AM [facility] Glucose 227(H) 70 - 100 mg/dL LAB CHEMISTRY METHOD 06/16/2024 11:44 AM [facility] BUN 42(H) 5 - 25 mg/dL LAB CHEMISTRY METHOD 06/16/2024 11:44 AM [facility] Creatinine 2.01(H) 0.50 - 1.10 mg/dL LAB CHEMISTRY METHOD 06/16/2024 11:44 AM [facility] LAB eGFR 28(L) >=60 mL/min/1. 73m2 LAB CHEMISTRY METHOD 06/16/2024 11:44 AM [facility] Comment:Calculation based on the Chronic Kidney Disease Epidemiology Collaboration (CKD-EPI) equation refit without adjustment for race. BUN/Creatinine Ratio 20.9 LAB CHEMISTRY METHOD 06/16/2024 11:44 AM [facility] Calcium 8.5 8.5 - 10.5 mg/dL LAB CHEMISTRY METHOD 06/16/2024 11:44 AM EST [facility] Blood Venous blood specimen / Unknown Venipuncture / Unknown 06/16/2024 8:25 AM EST 06/16/2024 10:18 AM EST us Lazaro Santoyo MD LAB BLOOD ORDERABLES Final Resul t [facility] [address] [place] [address], documented in this encounter Visit Diagnoses Diagnosis [...] documented as of this encounter Care Teams Laboratory Immunologist Relationship Specialty Start Date End Date Polo Kay NP [address] [place] [address] PCP - General Nurse Practitioner 12/28/24 documented as of this encounter
--- OUTSIDE RECORDS SUMMARY | 2025-05-18 06:56 | XMS_ITS | Encounter Summary ---
Author Organization [facility] Address [address] [place] [address] Care Team Providers Care Welder/Fitter Name Role Phone Eliza Polo NIX Primary Care Provider +1- [phone] Encounter Details Date Type Department Care Team (Late st Contact Info) Description 06/18/2024 Lab Requisition [facility] - Main Lab 299 [facility] [place] [phone] Lazaro Santoyo MD [address] [place] [address] Essential (primary) hypertension Social History Tobacco Use [...] STS ST LTG General No Ene Moffett, OPTICAL SYSTEMS ENGINEER Note: Pt will improve cognitive linguistic function to participate and communicate in basic ADLs supervision ST STGs General No Ene Moffett, OPTICAL SYSTEMS ENGINEER Note: Pt will participate with development [...] mmol/L LAB CHEMISTRY METHOD 06/18/2024 10:02 AM [facility] Potassium 4.4 3.5 - 5.5 mmol/L LAB CHEMISTRY METHOD 06/18/2024 10:02 AM [facility] Chloride 102 96 - 110 mmol/L LAB CHEMISTRY METHOD 06/18/2024 10:02 AM [facility] CO2 22 21 - 32 mmol/L LAB CHEMISTRY METHOD 06/18/2024 10:02 AM [facility] Anion Gap 9 3 - 11 LAB CHEMISTRY METHOD 06/18/2024 10:02 AM [facility] Glucose 232(H) 70 - 100 mg/dL LAB CHEMISTRY METHOD 06/18/2024 10:02 AM [facility] BUN 35(H) 5 - 25 mg/dL LAB CHEMISTRY METHOD 06/18/2024 10:02 AM [facility] Creatinine 1.76(H) 0.50 - 1.10 mg/dL LAB CHEMISTRY METHOD 06/18/2024 10:02 AM [facility] LAB eGFR 33(L) >=60 mL/min/1. 73m2 LAB CHEMISTRY METHOD 06/18/2024 10:02 AM [facility] Comment:Calculation based on the Chronic Kidney Disease Epidemiology Collaboration (CKD-EPI) equation refit without adjustment for race. BUN/Creatinine Ratio 19.9 LAB CHEMISTRY METHOD 06/18/2024 10:02 AM [facility] Calcium 8.4(L) 8.5 - 10.5 mg/dL LAB CHEMISTRY METHOD 06/18/2024 10:[address] [facility] Blood Venous blood specimen / Unknown Venipuncture / Unknown 06/18/2024 6:17 AM EST 06/18/2024 9:15 AM EST us Lazaro Santoyo MD LAB BLOOD ORDERABLES Final Resul t [facility] [address] [place] [address], documented in this encounter Visit Diagnoses Diagnosis [...] documented as of this encounter Care Teams Welder/Fitter Relationship Specialty Start Date End Date Polo Kay NP [address] [place] [address] PCP - General Nurse Practitioner 12/28/24 documented as of this encounter
--- OUTSIDE RECORDS SUMMARY | 2025-05-18 06:56 | XMS_ITS | Clinical Summary ---
Author Organization [facility] Address [address] [facility] [address] [place] [address] Phone Care Team Providers Care Big Data Hadoop Developer Name Role Phone Polo Kay DAVINA Primary Care Provider [phone] Allergies Active Allergy Reactions Criticality Noted Date Comments Amlodipine-Olmesartan 04/23/2022 Medications albuterol HFA (PROVENTIL HFA;VENTOLIN HFA) 108 (90 Base) MCG/ACT inhaler Inhale 2 puffs 2019 Active busPIRone (BUSPAR) 15 MG tablet Take 15 mg by mouth 2020 Active acetaminophen (TYLENOL) 500 MG tablet Take 500 mg by mouth 2020 Active insulin lispro (HumaLOG) 100 UNIT/ML patient supplied pumpIndications:Type 2 Diabetes Mellitus Inject under the skin continuously Active atorvastatin (LIPITOR) 80 MG tablet Take 1 tablet by mouth every night 2023 Active labetalol (NORMODYNE) 200 MG tabletIndications:Acu te nontraumatic kidney injury, not otherwise specified (HCC),Stage 3b chronic kidney disease (HCC),Anemia in chronic kidney disease,Microalbuminu linda,Hypertension,Seco ndary hyperparathyroidism of renal origin (HCC),Cloudy urine,Vitamin D deficiency, not otherwise specified Take 200 mg by mouth in the morning and 200 mg at noon and 200 mg in the evening. Active cloNIDine (CATAPRES) 0.2 MG tabletIndications:Acu te nontraumatic kidney injury, not otherwise specified (HCC),Stage 3b chronic kidney disease (HCC),Anemia in chronic kidney disease,Microalbuminu linda,Hypertension,Seco ndary hyperparathyroidism of renal origin (HCC),Cloudy urine,Vitamin D deficiency, not otherwise specified Take 0.2 mg by mouth in the morning and 0.2 mg in the evening. Active amLODIPine (NORVASC) 10 MG tabletIndications:Sta ge 3b chronic kidney disease (HCC),Microalbuminuri a,Hypertension TAKE ONE TABLET BY MOUTH ONE time each DAY 30 tablet 2024 Active calcitriol (ROCALTROL) 0.25 MCG capsule Take 1 capsule (0.25 mcg total) by mouth 1 (one) time each day 30 capsule 2024 Active hydrALAZINE 50 MG tabletIndications:Acu te nontraumatic kidney injury, not otherwise specified (HCC),Stage 3b chronic kidney disease (HCC),Anemia in chronic kidney disease,Microalbuminu linda,Hypertension,Seco ndary hyperparathyroidism of renal origin (HCC),Cloudy urine,Vitamin D deficiency, not otherwise specified TAKE ONE TABLET BY MOUTH EVERY MORNING AND ONE TABLET EVERY EVENING AND ONE TABLET AT BEDTIME 90 tablet 2 2024 Active baclofen (LIORESAL) 10 MG tablet Take 10 mg by mouth 2023 Active nitroglycerin (NITROSTAT) 0.[address] under the tongue 05/02 Discontinued aspirin 81 MG chewable tablet Chew 81 mg 1 (one) time each day 05/02 Discontinued divalproex (DEPAKOTE) 500 MG 24 hr tabletIndications:Acu te nontraumatic kidney injury, not otherwise specified (HCC),Stage 3b chronic kidney disease (HCC),Anemia in chronic kidney disease,Microalbuminu linda,Hypertension,Seco ndary hyperparathyroidism of renal origin (HCC),Cloudy urine,Vitamin D deficiency, not otherwise specified Take 500 mg by mouth in the morning and 500 mg in the evening. Do not crush, chew, or split. 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 06/01/2019 Overview (12/05/2020): Followed by Neurologist Dr Bossman Rivas Neuropathy due to diabetes mellitus 01/12/2019 Disorder of eye due to type 2 diabetes mellitus 01/12/2019 Microalbuminuria 01/12/2019 Type 2 diabetes mellitus 01/12/2019 Venous varices 08/16/2018 Bilateral myopia 02/01/2016 Overview (12/05/2020): As per Dr.Britt Muse - [facility] visit date 01/10/16 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 10/26/2014 Overview (12/05/2020): per Nelia Ruiz OD - at [facility] 10/04/14 Other visual distortions and entoptic phenomena 10/26/2014 Overview (12/05/2020): per Nelia Ruiz OD - at [facility] 10/04/14 Presbyopia 10/26/2014 Overview (12/05/2020): per Nelia Ruiz OD - at [facility] 10/04/14 Type 2 diabetes mellitus 10/26/2014 Overview (12/05/2020): per Nelia Ruiz OD - at [facility] 10/04/[address]Britt Muse - [facility] visit date 01/10/16 Type 2 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 edema 10/26/2014 Overview (12/05/2020): per Nelia Ruiz OD - at [facility] 10/04/14 Hypertension 10/16/2014 H/O: menorrhagia 10/16/2014 Overview (12/05/2020): As per past Medical Records History of cardiac catheterization 10/16/2014 Overview (12/05/2020): As per past Medical Records- done 09/2010 [facility] Hyperlipidemia 10/16/2014 Resolved Problems Problem Noted Date Diagnosed Date Resolved Date Stage 3b chronic kidney disease 02/03/2024 11/01/2024 Encounters Date Type Department Care Team Description 05/04/2025 Orders Only [facility] [address] [phone] Marcelino Weller MD 05/02/2025 Telephone [facility] [address] [address] Claude Martinez MD 04/07/2025 1:00 PM EST Office Visit [facility] [address] [place] [address] [place] [address] Claude Martinez MD Stage 5 chronic kidney disease (HCC) (Primary Dx) 03/15/2025 Refill [facility] [address] [facility] [address] [place] [address] Cherie Jaime ARNP Acute nontraumatic kidney injury, [...] Care Team (Late st Contact Info) Description 06/07/2025 Orders Only [facility] [address] [place] [address] Claude Martinez MD [address] [address] Stage 5 chronic kidney disease (HCC) 06/09/2025 1:00 PM EST Office Visit [facility] [address] [place] [address] Claude Martinez MD [address] [address] Health Maintenance Due Date Last Done [...] (#1) 2025 05/29/2012, 2010 Diabetes: Hemoglobin A1C 08/12/2025 025, 12/31/2024, 12/31/2024, Additional history exists Hepatitis B Vaccine Aged Out 10/17/2011, 10/17/2011, 07/31/2010, Additional history exists No longer eligible based on patient's age to complete this topic Pneumococcal Vaccine: Peds (0 to 5 Years) and At-Risk Patients (6 to 49 Years) Discontinued 12/22/2015, 04/29/2011 Procedures Procedure Name Priority Date/Time Associated Diagnosis Comments COLLECTION DATE (HC) Routine 05/14/2025 3:00 AM EST HEPATITIS B CORE AB TOTAL Routine 05/14/2025 3:00 AM EST HEPATITIS C ABS W/REFLEX RNA DETECTR Routine 05/14/2025 3:00 AM EST CONFIRMATION TEST HCV Routine 05/14/2025 3:00 AM EST HEPATITIS B SURFACE ANTIGEN W/REFL CONFIRM Routine 05/14/2025 3:00 AM EST TRANSFERRIN SATURATION Routine 05/14/2025 3:00 AM EST PROTEIN, TOTAL, SERUM Routine 05/14/2025 3:00 AM EST KT/V NATURAL LOG, URR (HC) Routine 05/14/2025 3:00 AM EST ELECTROLYTE PANEL Routine 05/14/2025 3:0 0 AM EST LIPID PANEL Routine 05/14/2025 3:00 AM EST LIH (HC) Routine 05/14/2025 3:00 AM EST GLUCOSE, RANDOM Routine 05/14/2025 3:00 AM EST LACTATE DEHYDROGENASE Routine 05/14/2025 3:00 AM EST BUN/CREATININE RATIO Routine 05/14/2025 3:00 AM EST CREATININE, SERUM Routine 05/14/2025 3:0 0 AM EST BILIRUBIN, TOTAL Routine 05/14/2025 3:00 AM EST AST Routine 05/14/2025 3:00 AM EST ALT Routine 05/14/2025 3:00 AM EST ALKALINE PHOSPHATASE Routine 05/14/2025 3:00 AM EST CALCIUM PHOSPHORUS PRODUCT, ADJUSTED (HC) Routine 05/14/2025 3:00 AM EST HEPATITIS B SURFACE ANTIBODY QUANT Routine 05/14/2025 3:00 AM EST PTH, INTACT Routine 05/14/2025 3:00 AM EST Stage 5 chronic kidney disease (HCC) VITAMIN D 25 HYDROXY Routine 05/14/2025 3:00 AM EST Stage 5 chronic kidney disease (HCC) CBC AND DIFFERENTIAL Routine 05/14/2025 3:00 AM EST Stage 5 chronic kidney disease (HCC) URIC ACID Routine 05/14/2025 3:00 AM EST Stage 5 chronic kidney disease (HCC) FERRITIN Routine 05/14/2025 3:00 AM EST Stage 5 chronic kidney disease (HCC) MAGNESIUM Routine 05/14/2025 3:00 AM EST Stage 5 chronic kidney disease (HCC) HEMOGLOBIN A1C Routine 05/14/2025 3:00 AM EST Chronic kidney disease, stage 4 (severe) (HCC) Hypo-osmolality and hyponatremia HEPATITIS B PROFILE Routine 05/04/2025 1 2:24 PM EST FERRITIN Routine 05/04/2025 12:24 PM EST Chronic kidney disease, stage 4 (severe) (HCC) Hypo-osmolality and hyponatremia IRON PANEL (FE, TIBC, TSAT) Routine 05/04/2025 12:24 PM EST Chronic kidney disease, stage 4 (severe) (HCC) Hypo-osmolality and hyponatremia from Last 3 Months Results * Confirmation Test HCV (05/14/2025 3:00 AM EST) Hep C Ab Confirmation Not needed [facility] 05/14/2025 3:00 AM EST 05/16/2025 1:06 PM EST us Claude Martinez MD LAB BLOOD ORDERABLES Final Result Performing Organization Address [facility] de Phone Number [facility] [address] [place] [address] * Collection Date (05/14/2025 3:00 AM EST) Collection Date See Comment [facility] Comment: Patient sample received may exceed specimen stability, based on the collection date electronically provided. When reviewing patient results, verify collection information and consider specimen stability before acting on any critical or panic results. 05/14/2025 3:00 AM EST us Claude Martinez MD LAB HISTORICA [id number] RESULTS Final Result Performing Organization Address [facility] de Phone Number [facility] [address] [place] [address] * LIH (05/14/2025 3:00 AM EST) Pathologist [facility] Lipemia Normal Normal [facility] Icterus Normal Normal [facility] Hemolysis Normal Normal [facility] 05/14/2025 3:00 AM EST 05/16/2025 1:27 PM EST us Claude Martinez MD LAB HISTORICA [id number] RESULTS Final Result Performing Organization Address [facility] de Phone Number [facility] [address] [place] [address] * (ABNORMAL) Kt/V Natural Log, URR (05/14/2025 3:00 AM EST) BUN 24 7 - 25 mg/dL [facility] Treatment Time 242 min [facility] Pre-Weight, lb 63.8 kg [facility] Post-Weight, lb 63.7 kg [facility] Ultrafiltration Rate 0 <=13 mL/kg/hr [facility] Comment: Recommend achieving Ultrafiltration Rate (UFR) <=10 mL/kg/hr References: Inge HORTA et al. Kidney Int. 2010; 79(2):250-257 BUN Post Dialysis 6(L) 7 - 25 mg/dL [facility] UREA REDUCTION RATIO (%) 75 >=65 % [facility] Kt/V Natural Log 1.53 >=1.2 [facility] 05/14/2025 3:00 AM EST 05/16/2025 1:27 PM EST Claude Martinez MD LAB HISTORICA [id number] RESULTS Final Result Performing Organization Address [facility] Co de Phone Number [facility] [address] [place] [address] * (ABNORMAL) Calcium Phosphorus Product, Adjusted (05/14/2025 3:00 AM EST) Albumin 2.8(L) 3.6 - 5.4 g/dL [facility] Calcium 7.5(L) 8.6 - 10.3 mg/dL [facility] Phosphorus, Serum 4.8 2.5 - 5.0 mg/dL [facility] Ca*PO4 36.0 <55.0 mg2/dL2 [facility] Calcium, Adjusted Total 8.5(L) 8.6 - 10.3 mg/dL [facility] CA*PO4 CORRCTD 40.8 <55.0 mg2/dL2 [facility] 05/14/2025 3:00 AM EST 05/16/2025 1:27 PM EST Claude Martinez MD LAB HISTORICA [id number] RESULTS Final Result Performing Organization Address [facility]/ZIP Co de Phone Number [facility] [address] [place] [address] * HEPATITIS C ABS W/REFLEX RNA DETECTR (05/14/2025 3:00 AM EST) Hep C Virus Ab Non-Reacti ve Non-Reacti ve [facility] 05/14/2025 3:00 AM EST 05/16/2025 1:27 PM EST us Claude Martinez MD LAB HISTORICA [id number] RESULTS Final Result Performing Organization Address [facility] de Phone Number [facility] [address] [place] [address] * Hepatitis B Surface Ag w/Reflex Confirmation (05/14/2025 3:00 AM EST) Hep B Surface Antigen Negative Negative [facility] 05/14/2025 3:00 AM EST 05/16/2025 1:27 PM EST us Claude Martinez MD LAB BLOOD ORDERABLES Final Result Performing Organization Address [facility] de Phone Number [facility] [address] [place] [address] * BUN/CREATININE RATIO (05/14/2025 3:00 AM EST) BUN/Creatinine Ratio 6.8 <=23.0 [facility] 05/14/2025 3:00 AM EST 05/16/2025 1:27 PM EST us Claude Martinez MD LAB HISTORICA [id number] RESULTS Final Result Performing Organization Address [facility] Phone Number [facility] [address] [place] [address] * (ABNORMAL) TSAT (05/14/2025 3:00 AM EST) Iron 40(L) 50 - 170 ug/dL [facility] Transferrin 106(L) 250 - 380 mg/dL [facility] TIBC 148(L) 211 - 406 ug/dL [facility] Iron Saturation (TSat) 27 22 - 52 % [facility] 05/14/2025 3:00 AM EST 05/16/2025 1:27 PM EST us Claude Martinez MD LAB BLOOD ORDERABLES Final Result Performing Organization Address [facility]/ZIP Co de Phone Number [facility] [address] [place] [address] * Hepatitis B Core Antibody, Total (05/14/2025 3:00 AM EST) [facility] HBc Total Ab, S Negative Negative [facility] 05/14/2025 3:00 AM EST 05/16/2025 1:27 PM EST Claude Martinez MD LAB BLOOD ORDERABLES Final Result Performing Organization Address [facility] de Phone Number [facility] [address] [place] [address] * Vitamin D 25 Hydroxy (05/14/2025 3:00 AM EST) [facility] Vitamin D, 25-Hydroxy 11 30 - 100 ng/mL [facility] Comment: Status Adult Pediatric Deficient: <20 <15 Insufficient: 20-29 15-19 Sufficient: 30-100 20-100 Blood Venous blood / Unknown 05/14/2025 3:00 AM EST 05/16/2025 1:27 PM EST us Claude Martinez MD LAB BLOOD ORDERABLES Final Result Performing Organization Address [facility] de Phone Number [facility] [address] [place] [address] * Hepatitis B Surface Antibody (05/14/2025 3:00 AM EST) [facility] Hep B Surface Antibody 343 mIU/mL [facility] Comment: Interpretation: <10: No Immunity >=10: Probable Immunity 05/14/2025 3:00 AM EST 05/16/2025 1:27 PM EST Claude Martinez MD LAB BLOOD ORDERABLES Final Result Performing Organization Address [facility] Co de Phone Number [facility] [address] [place] [address] * (ABNORMAL) CBC and Differential (05/14/2025 3:00 AM EST) [facility] DIFFERENTIAL MANUAL, 2 Not Indicated [facility] White Blood Cells 9.8 4.0 - 10.0 K/uL [facility] RBC 2.81(L) 3.93 - 5.22 M/uL [facility] Hgb 8.3(L) 11.2 - 15.7 g/dL [facility] Hemoglobin x 3 24.9(L) 33.6 - 47.1 g/dL [facility] Hematocrit 26.0(L) 34.1 - 44.9 % [facility] MCV 92.5 79.4 - 94.8 fL [facility] MCH 29.5 25.6 - 32.2 pg [facility] MCHC 31.9(L) 32.2 - 35.5 g/dL [facility] RDW 13.4 11.7 - 14.4 % [facility] Platelets 245 182 - 369 K/uL [facility] MPV 10.3 9.2 - 12.8 fL [facility] Neutrophils Relative 68.8 34.0 - 71.1 % [facility] Lymphocytes Relative 16.7(L) 19.3 - 51.7 % [facility] Monocytes 10.7 4.7 - 12.5 % [facility] Eosinophils Relative 1.8 0.7 - 5.8 % [facility] Basophils Relative 0.4 0.1 - 1.2 % [facility] Immature Granulocytes 1.6(H) 0.0 - 1.0 % [facility] Blood Venous blood / Unknown 05/14/2025 3:00 AM EST 05/16/2025 1:06 PM EST Claude Martinez MD LAB BLOOD ORDERABLES Final Result [facility] [address] [place] [address] * Uric Acid (05/14/2025 3:00 AM EST) [facility] Uric Acid 6.0 2.3 - 6.6 mg/dL [facility] Blood Venous blood / Unknown 05/14/2025 3:00 AM EST 05/16/2025 1:27 PM EST Claude Martinez MD LAB BLOOD ORDERABLES Final Result Performing Organization Address [facility] de Phone Number [facility] [address] [place] [address] * ALT (05/14/2025 3:00 AM EST) ALT (SGPT) 10 10 - 49 U/L [facility] 05/14/2025 3:00 AM EST 05/16/2025 1:27 PM EST Claude Martinez MD LAB BLOOD ORDERABLES Final Result Performing Organization Address [facility] de Phone Number [facility] [address] [place] [address] * AST (05/14/2025 3:00 AM EST) AST (SGOT) 19 <34 U/L [facility] 05/14/2025 3:00 AM EST 05/16/2025 1:27 PM EST Claude Martinez MD LAB BLOOD ORDERABLES Final Result Performing Organization Address [facility] de Phone Number [facility] [address] [place] [address] * (ABNORMAL) Protein, total (05/14/2025 3:00 AM EST) Total Protein 4.4(L) 6.4 - 8.9 g/dL [facility] 05/14/2025 3:00 AM EST 05/16/2025 1:27 PM EST Claude Martinez MD LAB BLOOD ORDERABLES Final Result Performing Organization Address [facility] de Phone Number [facility] [address] [place] [address] * Alkaline phosphatase (05/14/2025 3:00 AM EST) Alkaline Phosphatase 100 46 - 116 U/L [facility] 05/14/2025 3:00 AM EST 05/16/2025 1:27 PM EST us Claude Martinez MD LAB BLOOD ORDERABLES Final Result Performing Organization Address [facility] de Phone Number [facility] [address] [place] [address] * PTH, Intact (05/14/2025 3:00 AM EST) PTH, Intact 193 160 - 721 pg/mL [facility] Comment: Suggested (KDIGO) ESRD maintenance range is two to nine times the upper normal limit (80.1 pg/mL) for the laboratory. Blood Venous blood / Unknown 05/14/2025 3:00 AM EST 05/16/2025 1:27 PM EST us Claude Martinez MD LAB BLOOD ORDERABLES Final Result Performing Organization Address [facility] Phone Number [facility] [address] [place] [address] * Magnesium (05/14/2025 3:00 AM EST) Magnesium 1.9 1.9 - 2.7 mg/dL [facility] Blood Venous blood / Unknown 05/14/2025 3:00 AM EST 05/16/2025 1:27 PM EST Claude Martinez MD LAB BLOOD ORDERABLES Final Result Performing Organization Address [facility] de Phone Number [facility] [address] [place] [address] * (ABNORMAL) Lactate dehydrogenase (05/14/2025 3:00 AM EST) LDH 341(H) 120 - 246 U/L [facility] 05/14/2025 3:00 AM EST 05/16/2025 1:27 PM EST us Claude Martinez MD LAB BLOOD ORDERABLES Final Result Performing Organization Address [facility] de Phone Number [facility] [address] [place] [address] * (ABNORMAL) Hemoglobin A1c (05/14/2025 3:00 AM EST) Hemoglobin A1C 5.9(H) <5.7 % [facility] Comment: Methodology: Enzymatic Normal: <5.7% Prediabetes: 5.7-6.4% Diabetes: >6.4% Diabetic Glucose Control Evaluation: Therapeutic action suggested at >8.0% ADA recommends a glycemic goal of <7.0% Blood Venous blood / Unknown 05/14/2025 3:00 AM EST 05/16/2025 1:06 PM EST us Claude Martinez MD LAB BLOOD ORDERABLES Final Result Performing Organization Address [facility]/ZIP Co de Phone Number [facility] [address] [place] [address] * (ABNORMAL) Glucose, random (05/14/2025 3:00 AM EST) Glucose 198(H) 70 - 99 mg/dL [facility] Comment: ADA guidelines outline the following fasting glucose ranges: Normal: <100 Prediabetes: 100-125 Diabetes: >125 05/14/2025 3:00 AM EST 05/16/2025 1:27 PM EST us Claude Martinez MD LAB BLOOD ORDERABLES Final Result Performing Organization Address [facility]/ZIP Co de Phone Number [facility] [address] [address] * (ABNORMAL) Ferritin (05/14/2025 3:00 AM EST) Only the most recent of2 resultswithin the time period is included. Ferritin 296(H) 10 - 291 ng/mL [facility] Blood Venous blood / Unknown 05/14/2025 3:00 AM EST 05/16/2025 1:27 PM EST us Claude Martinez MD LAB BLOOD ORDERABLES Final Result Performing Organization Address [facility] Co de Phone Number [facility] [address] [place] [address] * (ABNORMAL) Creatinine, serum (05/14/2025 3:00 AM EST) Creatinine 3.55(H) 0.55 - 1.02 mg/dL [facility] 05/14/2025 3:00 AM EST 05/16/2025 1:27 PM EST Claude Martinez MD LAB BLOOD ORDERABLES Final Result Performing Organization Address [facility] Co de Phone Number [facility] [address] [place] [address] * (ABNORMAL) Bilirubin, total (05/14/2025 3:00 AM EST) Total Bilirubin <0.2(L) 0.3 - 1.2 mg/dL [facility] 05/14/2025 3:00 AM EST 05/16/2025 1:27 PM EST Claude Martinez MD LAB BLOOD ORDERABLES Final Result Performing Organization Address [facility] de Phone Number [facility] [address] [place] [address] * (ABNORMAL) Lipid panel (05/14/2025 3:00 AM EST) Cholesterol 170 mg/dL [facility] Comment: Optimal: <200 Borderline: 200-239 High Risk: >239 Triglycerides 228(H) mg/dL [facility] Comment: Optimal: <150 Borderline: 150-200 High Risk: >200 HDL 55(L) mg/dL [facility] Comment: Optimal: >59 Borderline: 40-59 High Risk: <40 LDL-Calc 69 mg/dL [facility] Comment: Optimal: <100 Borderline: 100-159 High Risk: >159 VLDL Cholesterol Silvio 46(H) mg/dL [facility] Comment: Optimal: <30 Borderline: 30-40 High Risk: >40 Chol/HDL Ratio 3.1 [facility] Comment: Optimal: <3.3 High Risk: >6.2 05/14/2025 3:00 AM EST 05/16/2025 1:27 PM EST us Claude Martinez MD LAB BLOOD ORDERABLES Final Result Performing Organization Address [facility] de Phone Number [facility] [address] [place] [address] * (ABNORMAL) Electrolyte panel (05/14/2025 3:00 AM EST) Pathologist [facility] Sodium 134(L) 136 - 145 mEq/L [facility] Potassium 4.0 3.4 - 5.0 mEq/L [facility] Chloride 98 98 - 107 mEq/L [facility] Bicarbonate (CO2) 26 21 - 31 mEq/L [facility] Anion Gap 10 3 - 14 mEq/L [facility] 05/14/2025 3:00 AM EST 05/16/2025 1:27 PM EST us Claude Martinez MD LAB BLOOD ORDERABLES Final Result Performing Organization Address [facility] de Phone Number [facility] [address] [place] [address] * Hepatitis B Profile (05/04/2025 12:24 PM EST) [facility] Hep B Surface Antibody REACTIVE Nonreactive See order comments Comment:REACTIVE: > 11.99 mI U/mL Hep B Core Total Ab Nonreactive Nonreactive See order comments Hep B Surface Antigen Negative Negative See order comments 05/04/2025 12:2 4 PM EST 05/04/2025 12:24 PM EST us Marcelino Weller MD LAB BLOOD ORDERABLES Final Re sult Performing Organization Address [facility] de Phone Number [place] See order comments [place] [address] * (ABNORMAL) Iron Panel (Fe, TIBC, TSAT) (05/04/2025 12:24 PM EST) Pathologist [facility] Iron 14(L) 30 - 160 mcg/dL See order comments TIBC 125(L) 228 - 428 mcg/dL See order comments Iron Saturation (TSat) 11(L) 15 - 50 % See order comments UIBC 111 ug/dL See order comments Blood Venous blood / Unknown 05/04/2025 12:24 PM EST 05/04/2025 12:24 PM EST Claude Martinez MD LAB BLOOD ORDERABLES Final Result [place] See order comments [place] [address] from Last 3 Months Insurance [facility] JACEK ATKINS [phone] Care Teams Big Data Hadoop Developer Relationship Specialty Start Date End Date Polo Kay FNP [address] [place] [address] PCP - General Nurse Practitioner 11/07/20
--- OUTSIDE RECORDS SUMMARY | 2025-05-18 06:56 | XMS_ITS | Encounter Summary ---
Author Organization [facility] Address [address] [place] [address] Care Team Providers Care Tube Drawer Name Role Phone Polo Kay NP Primary Care Provider +1- [phone] Encounter Details Date Type Department Care Team (Late st Contact Info) Description 06/14/2024 Lab Requisition [facility] - Main Lab 299 [facility] [place] [phone] Lazaro Santoyo MD [address] [place] [address] Hemiplegia and hemiparesis following cerebral infarction affecting [...] STS ST LTG General No Ene Moffett, IRONWORKER APPRENTICE Note: Pt will improve cognitive linguistic function to participate and communicate in basic ADLs supervision ST STGs General No Ene Moffett, IRONWORKER APPRENTICE Note: Pt will participate with development of [...] mmol/L LAB CHEMISTRY METHOD 06/14/2024 3:48 PM [facility] Potassium 4.4 3.5 - 5.5 mmol/L LAB CHEMISTRY METHOD 06/14/2024 3:48 PM [facility] Chloride 102 96 - 110 mmol/L LAB CHEMISTRY METHOD 06/14/2024 3:48 PM [facility] CO2 25 21 - 32 mmol/L LAB CHEMISTRY METHOD 06/14/2024 3:48 PM [facility] Anion Gap 8 3 - 11 LAB CHEMISTRY METHOD 06/14/2024 3:48 PM [facility] Glucose 333(H) 70 - 100 mg/dL LAB CHEMISTRY METHOD 06/14/2024 3:48 PM [facility] BUN 42(H) 5 - 25 mg/dL LAB CHEMISTRY METHOD 06/14/2024 3:48 PM [facility] Creatinine 2.31(H) 0.50 - 1.10 mg/dL LAB CHEMISTRY METHOD 06/14/2024 3:48 PM EST [facility] eGFR 24(L) >=60 mL/min/1. 73m2 LAB CHEMISTRY METHOD 06/14/2024 3:48 PM EST [facility] Comment:Calculation based on the Chronic Kidney Disease Epidemiology Collaboration (CKD-EPI) equation refit without adjustment for race. BUN/Creatinine Ratio 18.2 LAB CHEMISTRY METHOD 06/14/2024 3:48 PM [facility] Calcium 8.3(L) 8.5 - 10.5 mg/dL LAB CHEMISTRY METHOD 06/14/2024 3:48 PM [facility] Blood Venous blood specimen / Unknown Venipuncture / Unknown 06/14/2024 5:47 AM EST 06/14/2024 12:27 PM EST us Lazaro Santoyo MD LAB BLOOD ORDERABLES Final Resul t [facility] [address] [place] [address], [place] [phone] * (ABNORMAL) Complete blood count (06/14/2024 5:47 AM EST) WBC 11.9(H) 4.8 - 10.8 K/mcL LAB HEMETOLOGY METHOD 06/14/2024 2:46 PM [facility] RBC 3.20(L) 3.80 - 4.80 M/mcL LAB HEMETOLOGY METHOD 06/14/2024 2:46 PM [facility] Hemoglobin 9.2(L) 11.5 - 16.0 g/dL LAB HEMETOLOGY METHOD 06/14/2024 2:46 PM [facility] Hematocrit 28.3(L) 35.0 - 47.0 % LAB HEMETOLOGY METHOD 06/14/2024 2:46 PM [facility] MCV 89.3 79.0 - 98.0 FL LAB HEMETOLOGY METHOD 06/14/2024 2:46 PM EST [facility] MCH 29.0 27.0 - 32.0 pcg LAB HEMETOLOGY METHOD 06/14/2024 2:46 PM EST [facility] MCHC 32.5 32.0 - 37.0 g/dL LAB HEMETOLOGY METHOD 06/14/2024 2:46 PM EST [facility] RDW 13.4 11.0 - 15.0 % LAB HEMETOLOGY METHOD 06/14/2024 2:46 PM EST [facility] Platelets 274 130 - 400 K/mcL LAB HEMETOLOGY METHOD 06/14/2024 2:46 PM EST [facility] MPV 11.1(H) 7.0 - 11.0 FL LAB HEMETOLOGY METHOD 06/14/2024 2:46 PM EST [facility] NRBC 0.0 <1.0 % LAB HEMETOLOGY METHOD 06/14/2024 2:46 PM [facility] NRBC Absolute 0.00 <0.10 K/mcL LAB HEMETOLOGY METHOD 06/14/2024 2:46 PM [facility] Blood Venous blood specimen / Unknown Venipuncture / Unknown 06/14/2024 5:47 AM EST 06/14/2024 12:27 PM EST us Lazaro Santoyo MD LAB BLOOD ORDERABLES Final Resul t [facility] [address] [place] [address], documented in this encounter Visit Diagnoses Diagnosis [...] as of this encounter Care Teams Tube Drawer Relationship Specialty Start Date End Date Polo Kay NP [facility] [place] [address] PCP - General Nurse Practitioner 12/28/24 documented as of this encounter
--- OUTSIDE RECORDS SUMMARY | 2025-05-18 06:56 | XMS_ITS | Encounter Summary ---
Author Organization [facility] Address [address] [place] [address] Care Team Providers Care Ventilated Rib Fitter Name Role Phone Polo Kay NP Primary Care Provider +1- [phone] Encounter Details Date Type Department Care Team (Late st Contact Info) Description 06/16/2024 Lab Requisition [facility] - Main Lab 299 [facility] [place] [phone] Lazaro Santoyo MD [address] [place] [address] Essential (primary) hypertension; Hypertensive crisis, unspecified Social [...] STS ST LTG General No Ene Moffett, SLAB LIFTING SUPERVISOR Note: Pt will improve cognitive linguistic function to participate and communicate in basic ADLs supervision ST STGs General No Ene Moffett, SLAB LIFTING SUPERVISOR Note: Pt will participate with development [...] mmol/L LAB CHEMISTRY METHOD 06/17/2024 11:20 AM [facility] Potassium 4.7 3.5 - 5.5 mmol/L LAB CHEMISTRY METHOD 06/17/2024 11:20 AM [facility] Chloride 103 96 - 110 mmol/L LAB CHEMISTRY METHOD 06/17/2024 11:20 AM [facility] CO2 22 21 - 32 mmol/L LAB CHEMISTRY METHOD 06/17/2024 11:20 AM [facility] Anion Gap 9 3 - 11 LAB CHEMISTRY METHOD 06/17/2024 11:20 AM [facility] Glucose 172(H) 70 - 100 mg/dL LAB CHEMISTRY METHOD 06/17/2024 11:20 AM [facility] BUN 37(H) 5 - 25 mg/dL LAB CHEMISTRY METHOD 06/17/2024 11:20 AM [facility] Creatinine 1.79(H) 0.50 - 1.10 mg/dL LAB CHEMISTRY METHOD 06/17/2024 11:20 AM [facility] eGFR 32(L) >=60 mL/min/1. 73m2 LAB CHEMISTRY METHOD 06/17/2024 11:20 AM [facility] Comment:Calculation based on the Chronic Kidney Disease Epidemiology Collaboration (CKD-EPI) equation refit without adjustment for race. BUN/Creatinine Ratio 20.7 LAB CHEMISTRY METHOD 06/17/2024 11:20 AM [facility] Calcium 8.2(L) 8.5 - 10.5 mg/dL LAB CHEMISTRY METHOD 06/17/2024 11:20 AM EST [facility] Blood Venous blood specimen / Unknown Venipuncture / Unknown 06/17/2024 5:19 AM EST 06/17/2024 10:17 AM EST us Lazaro Santoyo MD LAB BLOOD ORDERABLES Final Resul t [facility] [address] [place] [address], documented in this encounter Visit Diagnoses Diagnosis [...] documented as of this encounter Care Teams Ventilated Rib Fitter Relationship Specialty Start Date End Date Polo Kay NP [address] [place] [address] PCP - General Nurse Practitioner 12/28/24 documented as of this encounter
--- OUTSIDE RECORDS SUMMARY | 2025-05-18 06:56 | XMS_ITS | Data Portability ---
Author Organization [place] [facility], Allergy Address [address] [place] [phone] Care Team Providers Care Director Product Name Role Phone [facility] Primary Care Provider Assessment Encounter Date Assessment [...] r/o malignancy , Radiology center 2023 024 [email or web address] [facility], [address] [facility], [place], [address], 16:48:47 Surgeries None recorded. Imaging None recorded. 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 Health Concerns Section Related Observation LastModified by Organization Detai ls LastModified Time None Recorded Concern Status LastModified by Organization Details LastModified Time None Recorded Advance Directives Directive None Recorded Payers Insurance Date Sequence Insurance Name Policy Number Policy Ceja Covered Member ID Ceja Member ID Guarantor Name 02/16/2024 2 [place] [facility] Kisha Alvarez [id number] Kisha Vickers 02/16/2024 1 [place] [email or web address] Kisha Vickers [id number] KCecy Vickers Notes Date Note Type Note Provider Name and Address Organization Details Recorded Time 2024 text/html ROS as noted in the HPI Right parotid mass04/21/19 MR Brain [facility] - incidental finding of right parotid tail with 2cm mass, changes of a CVA 08/25/20 right parotid FNA non diagnostic - advised US FNA09/19/2020 Pt no showed her U/S fna at [facility] 11/21/2023 CT neck noncontrast at [facility] shows right parotid gland mass measuring 21 x 15 x 24 mm. 12/01/23 CVA, just got out of rehab earlier today with home PT LAN WEST MD [address] [place] [address], [place], [address], [place] [facility] 2024 13:57:27 OBGyn Episode No OBEpisode recorded.
--- OUTSIDE RECORDS SUMMARY | 2025-05-18 06:56 | XMS_ITS | Encounter Summary ---
Author Organization [facility] Address [address] [place] [address] Care Team Providers Care Conference Coordinator Name Role Phone Polo Kay NP Primary Care Provider +1- [phone] Encounter Details Date Type Department Care Team (Late st Contact Info) Description 06/23/2024 Lab Requisition [facility] - Main Lab 299 [facility] [place] [phone] Lazaro Santoyo MD [address] [place] [address] Dehydration Social History Tobacco Use Types Packs/Day [...] STS ST LTG General No Ene Moffett, PLATFORM BUILDER Note: Pt will improve cognitive linguistic function to participate and communicate in basic ADLs supervision ST STGs General No Ene Moffett, PLATFORM BUILDER Note: Pt will participate with development of [...] mmol/L LAB CHEMISTRY METHOD 06/24/2024 9:43 AM [facility] Potassium 4.5 3.5 - 5.5 mmol/L LAB CHEMISTRY METHOD 06/24/2024 9:43 AM [facility] Chloride 104 96 - 110 mmol/L LAB CHEMISTRY METHOD 06/24/2024 9:43 AM [facility] CO2 23 21 - 32 mmol/L LAB CHEMISTRY METHOD 06/24/2024 9:43 AM [facility] Anion Gap 6 3 - 11 LAB CHEMISTRY METHOD 06/24/2024 9:43 AM [facility] Glucose 86 70 - 100 mg/dL LAB CHEMISTRY METHOD 06/24/2024 9:43 AM [facility] BUN 49(H) 5 - 25 mg/dL LAB CHEMISTRY METHOD 06/24/2024 9:43 AM [facility] Creatinine 2.05(H) 0.50 - 1.10 mg/dL LAB CHEMISTRY METHOD 06/24/2024 9:43 AM [facility] eGFR 27(L) >=60 mL/min/1. 73m2 LAB CHEMISTRY METHOD 06/24/2024 9:43 AM [facility] Comment:Calculation based on the Chronic Kidney Disease Epidemiology Collaboration (CKD-EPI) equation refit without adjustment for race. BUN/Creatinine Ratio 23.9 LAB CHEMISTRY METHOD 06/24/2024 9:43 AM [facility] Calcium 8.3(L) 8.5 - 10.5 mg/dL LAB CHEMISTRY METHOD 06/24/2024 9:43 AM [facility] Blood Venous blood specimen / Unknown Venipuncture / Unknown 06/24/2024 5:18 AM EST 06/24/2024 7:57 AM EST Lazaro Santoyo MD LAB BLOOD ORDERABLES Final Resul t [facility] [address] [place] [address], documented in this encounter Visit Diagnoses Diagnosis [...] documented as of this encounter Care Teams Conference Coordinator Relationship Specialty Start Date End Date Polo Kay NP [address] [place] [address] PCP - General Nurse Practitioner 12/28/24 documented as of this encounter
--- OUTSIDE RECORDS SUMMARY | 2025-05-18 06:56 | XMS_ITS | Encounter Summary ---
Author Organization Address [address] [place] [address] Care Team Providers Care Associate Product Manager Name Role Phone Eliza Polo DINAH Primary Care Provider +1- [phone] Encounter Details Date Type Department Care Team (Late st Contact Info) Description 06/15/2024 Lab Requisition [facility] - Main Lab 299 [facility] [place] [phone] Lazaro Santoyo MD [address] [place] [address] Type 2 diabetes mellitus without complications (CMS/HCC [...] STS ST LTG General No Ene Moffett, END TRIMMER Note: Pt will improve cognitive linguistic function to participate and communicate in basic ADLs supervision ST STGs General No Ene Moffett, END TRIMMER Note: Pt will participate with development of [...] K/mcL LAB HEMETOLOGY METHOD 06/15/2024 9:36 AM [facility] RBC 3.00(L) 3.80 - 4.80 M/mcL LAB HEMETOLOGY METHOD 06/15/2024 9:36 AM [facility] Hemoglobin 8.8(L) 11.5 - 16.0 g/dL LAB HEMETOLOGY METHOD 06/15/2024 9:36 AM [facility] Hematocrit 26.7(L) 35.0 - 47.0 % LAB HEMETOLOGY METHOD 06/15/2024 9:36 AM [facility] MCV 88.7 79.0 - 98.0 FL LAB HEMETOLOGY METHOD 06/15/2024 9:36 AM [facility] MCH 29.2 27.0 - 32.0 pcg LAB HEMETOLOGY METHOD 06/15/2024 9:36 AM [facility] MCHC 33.0 32.0 - 37.0 g/dL LAB HEMETOLOGY METHOD 06/15/2024 9:36 AM [facility] RDW 13.3 11.0 - 15.0 % LAB HEMETOLOGY METHOD 06/15/2024 9:36 AM [facility] Platelets 280 130 - 400 K/mcL LAB HEMETOLOGY METHOD 06/15/2024 9:36 AM [facility] MPV 11.1(H) 7.0 - 11.0 FL LAB HEMETOLOGY METHOD 06/15/2024 9:36 AM [facility] NRBC 0.0 <1.0 % LAB HEMETOLOGY METHOD 06/15/2024 9:36 AM [facility] NRBC Absolute 0.00 <0.10 K/mcL LAB HEMETOLOGY METHOD 06/15/2024 9:36 AM [facility] Neutrophils Relative 75.2 % LAB HEMETOLOGY METHOD 06/15/2024 9:36 AM [facility] Lymphocytes Relative 14.3 % LAB HEMETOLOGY METHOD 06/15/2024 9:36 AM [facility] Monocytes Relative 7.2 % LAB HEMETOLOGY METHOD 06/15/2024 9:36 AM [facility] Eosinophils Relative 2.5 % LAB HEMETOLOGY METHOD 06/15/2024 9:36 AM [facility] Basophils Relative 0.5 % LAB HEMETOLOGY METHOD 06/15/2024 9:36 AM [facility] Immature Granulocytes Relative 0.3 % LAB HEMETOLOGY METHOD 06/15/2024 9:36 AM [facility] Neutrophils Absolute 7.44(H) 1.50 - 7.00 K/mcL LAB HEMETOLOGY METHOD 06/15/2024 9:36 AM [facility] Lymphocytes Absolute 1.41 1.00 - 5.00 K/mcL LAB HEMETOLOGY METHOD 06/15/2024 9:36 AM [facility] Monocytes Absolute 0.71 0.20 - 1.00 K/[facility] LAB HEMETOLOGY METHOD 06/15/2024 9:36 AM EST [facility] Eosinophils Absolute 0.25 0.00 - 0.50 K/[facility] LAB HEMETOLOGY METHOD 06/15/2024 9:36 AM EST [facility] Basophils Absolute 0.05 0.00 - 0.20 K/[facility] LAB HEMETOLOGY METHOD 06/15/2024 9:36 AM EST [facility] Immature Granulocytes Absolute 0.03 0.00 - 0.03 K/[facility] LAB HEMETOLOGY METHOD 06/15/2024 9:36 AM [facility] Blood Venous blood specimen / Unknown Venipuncture / Unknown 06/15/2024 5:37 AM EST 06/15/2024 8:57 AM EST us Lazaro Santoyo MD LAB BLOOD ORDERABLES Final Resul t [facility] [address] [place] [address], * (ABNORMAL) Basic metabolic panel (06/15/2024 5:37 AM EST) Sodium 133 133 - 145 mmol/L LAB CHEMISTRY METHOD 06/15/2024 10:00 AM [facility] Potassium 4.8 3.5 - 5.5 mmol/L LAB CHEMISTRY METHOD 06/15/2024 10:00 AM [facility] Chloride 101 96 - 110 mmol/L LAB CHEMISTRY METHOD 06/15/2024 10:00 AM [facility] CO2 26 21 - 32 mmol/L LAB CHEMISTRY METHOD 06/15/2024 10:00 AM [facility] Anion Gap 6 3 - 11 LAB CHEMISTRY METHOD 06/15/2024 10:00 AM [facility] Glucose 231(H) 70 - 100 mg/dL LAB CHEMISTRY METHOD 06/15/2024 10:00 AM EST [facility] BUN 48(H) 5 - 25 mg/dL LAB CHEMISTRY METHOD 06/15/2024 10:00 AM [facility] Creatinine 2.43(H) 0.50 - 1.10 mg/dL LAB CHEMISTRY METHOD 06/15/2024 10:00 AM EST [facility] eGFR 22(L) >=60 mL/min/1. 73m2 LAB CHEMISTRY METHOD 06/15/2024 10:00 AM EST [facility] Comment:Calculation based on the Chronic Kidney Disease Epidemiology Collaboration (CKD-EPI) equation refit without adjustment for race. BUN/Creatinine Ratio 19.8 LAB CHEMISTRY METHOD 06/15/2024 10:00 AM [facility] Calcium 8.4(L) 8.5 - 10.5 mg/dL LAB CHEMISTRY METHOD 06/15/2024 10:00 AM [facility] Blood Venous blood specimen / Unknown Venipuncture / Unknown 06/15/2024 5:37 AM EST 06/15/2024 8:57 AM EST us Lazaro Santoyo MD LAB BLOOD ORDERABLES Final Resul t [facility] [address] [place] [address], documented in this encounter Visit Diagnoses Diagnosis Type 2 diabetes mellitus without complications (CMS/HCC V24, CMS/HCC V28) Essential (primary) hypertension Unspecified essential hypertension documented in this encounter Additional Health Concerns Infection Onset Date Last Indicated Resolved Time ESBL Comment:Escherichia coli (+)ESBL urine 12/29/2024 01/31/2025 Respiratory Rule-Out 01/28/2025 01/28/2025 025 12:32 AM EDT COVID-19 Rule-Out 01/28/2025 01/28/2025 01/29/2025 12:32 AM EDT Respiratory Rule-Out 01/29/2025 01/29/202513/2 025 1:50 PM EDT COVID-19 Rule-Out 01/29/2025 01/29/2025 01/29/2025 1:50 PM EDT Enterovirus 01/29/2025 01/29/2025 02/22/2025 7:04 PM EDT Rhinovirus 01/29/2025 01/29/2025 02/22/2025 7:04 PM EDT Respiratory Rule-Out 04/30/2025 04/30/2025 025 3:53 PM EST COVID-19 Rule-Out 04/30/2025 04/30/2025 04/30/2025 3:53 PM EST documented as of this encounter Care Teams Associate Product Manager Relationship Specialty Start Date End Date Polo Kay NP [address] [place] [address] PCP - General Nurse Practitioner 12/28/24 documented as of this encounter
--- OUTSIDE RECORDS SUMMARY | 2025-05-18 06:56 | XMS_ITS | Encounter Summary ---
Author Organization [facility] Address [address] [place] [address] Care Team Providers Care Landscaping Specialist Name Role Phone Eliza Polo NIX Primary Care Provider +1- [phone] Encounter Details Date Type Department Care Team (Late st Contact Info) Description 07/14/2024 Lab Requisition [facility] - Main Lab 299 [facility] [place] [phone] Lazaro Santoyo MD [address] [place] [address] Pemphigoid, unspecified (CMS/HCC V28) Social History Tobacco [...] STS ST LTG General No Ene Moffett, PAPER LATCHER Note: Pt will improve cognitive linguistic function to participate and communicate in basic ADLs supervision ST STGs General No Ene Moffett, PAPER LATCHER Note: Pt will participate with development of [...] mmol/L LAB CHEMISTRY METHOD 07/14/2024 11:55 AM [facility] Potassium 4.0 3.5 - 5.5 mmol/L LAB CHEMISTRY METHOD 07/14/2024 11:55 AM [facility] Chloride 106 96 - 110 mmol/L LAB CHEMISTRY METHOD 07/14/2024 11:55 AM [facility] CO2 18(L) 21 - 32 mmol/L LAB CHEMISTRY METHOD 07/14/2024 11:55 AM [facility] Anion Gap 13(H) 3 - 11 LAB CHEMISTRY METHOD 07/14/2024 11:55 AM [facility] Glucose 48(L) 70 - 100 mg/dL LAB CHEMISTRY METHOD 07/14/2024 11:55 AM [facility] Comment:Results verified by repeat testing BUN 48(H) 5 - 25 mg/dL LAB CHEMISTRY METHOD 07/14/2024 11:55 AM [facility] Creatinine 1.98(H) 0.50 - 1.10 mg/dL LAB CHEMISTRY METHOD 07/14/2024 11:55 AM [facility] eGFR 28(L) >=60 mL/min/1. 73m2 LAB CHEMISTRY METHOD 07/14/2024 11:55 AM [facility] Comment:Calculation based on the Chronic Kidney Disease Epidemiology Collaboration (CKD-EPI) equation refit without adjustment for race. BUN/Creatinine Ratio 24.2 LAB CHEMISTRY METHOD 07/14/2024 11:55 AM [facility] Calcium 8.2(L) 8.5 - 10.5 mg/dL LAB CHEMISTRY METHOD 07/14/2024 11:55 AM [facility] Blood Venous blood specimen / Unknown Venipuncture / Unknown 07/14/2024 7:17 AM EST 07/14/2024 9:07 AM EST us Lazaro Santoyo MD LAB BLOOD ORDERABLES Final Resul t [facility] [address] [place] [address], [place] [phone] * (ABNORMAL) Complete blood count (07/14/2024 7:17 AM EST) WBC 10.0 4.8 - 10.8 K/mcL LAB HEMETOLOGY METHOD 07/14/2024 11:09 AM [facility] RBC 2.40(L) 3.80 - 4.80 M/mcL LAB HEMETOLOGY METHOD 07/14/2024 11:09 AM [facility] Hemoglobin 6.7(L) 11.5 - 16.0 g/dL LAB HEMETOLOGY METHOD 07/14/2024 11:09 AM [facility] Hematocrit 21.3(L) 35.0 - 47.0 % LAB HEMETOLOGY METHOD 07/14/2024 11:09 AM [facility] MCV 89.5 79.0 - 98.0 FL LAB HEMETOLOGY METHOD 07/14/2024 11:09 AM [facility] MCH 28.2 27.0 - 32.0 pcg LAB HEMETOLOGY METHOD 07/14/2024 11:09 AM [facility] MCHC 31.5(L) 32.0 - 37.0 g/dL LAB HEMETOLOGY METHOD 07/14/2024 11:09 AM EST [facility] RDW 13.2 11.0 - 15.0 % LAB HEMETOLOGY METHOD 07/14/2024 11:09 AM EST [facility] Platelets 369 130 - 400 K/mcL LAB HEMETOLOGY METHOD 07/14/2024 11:09 AM [facility] MPV 10.0 7.0 - 11.0 FL LAB HEMETOLOGY METHOD 07/14/2024 11:09 AM EST [facility] NRBC 0.0 <1.0 % LAB HEMETOLOGY METHOD 07/14/2024 11:09 AM [facility] NRBC Absolute 0.00 <0.10 K/mcL LAB HEMETOLOGY METHOD 07/14/2024 11:09 AM [facility] Blood Venous blood specimen / Unknown Venipuncture / Unknown 07/14/2024 7:17 AM EST 07/14/2024 9:07 AM EST us Lazaro Santoyo MD LAB BLOOD ORDERABLES Final Resul t [facility] [address] [place] [address], documented in this encounter Visit Diagnoses Diagnosis Pemphigoid, unspecified (CMS/[facility] V28) documented in this encounter Additional Health [...] documented as of this encounter Care Teams Landscaping Specialist Relationship Specialty Start Date End Date Polo Kay NP [facility] [place] [address] PCP - General Nurse Practitioner 12/28/24 documented as of this encounter
--- OUTSIDE RECORDS SUMMARY | 2025-05-18 06:56 | XMS_ITS | Encounter Summary ---
Author Organization [facility] Address [address] [place] [address] Care Team Providers Care Cloth Shrinking Machine Operator Helper Name Role Phone Polo Kay NP Primary Care Provider [phone]- [phone] Encounter Details Date Type Department Care Team (Late st Contact Info) Description 07/05/2024 Lab Requisition [facility] - Main Lab [address] [facility] [place] [phone] Lazaro Santoyo MD [address] [place] [address] Chronic kidney disease, unspecified; Anemia, unspecified Social [...] [facility] L[facility] General No Ene Moffett, GLOBAL DIRECTOR AIR AND CLIMATE CHANGE Note: Pt will improve cognitive linguistic function to participate and communicate in basic ADLs supervision ST STGs General No Ene Moffett, GLOBAL DIRECTOR AIR AND CLIMATE CHANGE Note: Pt will participate with development of [...] LAB CHEMISTRY METHOD 07/05/2024 2:27 PM EST [facility] Folate 10.7 2.8 - 17.0 ng/ml LAB CHEMISTRY METHOD 07/05/2024 2:27 PM EST [facility] Blood Venous blood specimen / Unknown Venipuncture / Unknown 07/05/2024 9:24 AM EST 07/05/2024 1:18 PM EST us Lazaro Santoyo MD LAB BLOOD ORDERABLES Final Resul t [facility] [address] [place] [address], [place] [phone] * Ferritin (07/05/2024 9:24 AM EST) Ferritin 99 8 - 252 ng/mL LAB CHEMISTRY METHOD 07/05/2024 2:27 PM EST [facility] Blood Venous blood specimen / Unknown Venipuncture / Unknown 07/05/2024 9:24 AM EST 07/05/2024 1:18 PM EST us Lazaro Santoyo MD LAB BLOOD ORDERABLES Final Resul t Performing Organization Address [facility] de Phone Number [facility] [address] [place] [address], [place] [phone] * (ABNORMAL) Iron and TIBC (07/05/2024 9:24 AM EST) Iron 15(L) 40 - 150 mcg/dL LAB CHEMISTRY METHOD 07/05/2024 2:04 PM EST [facility] TIBC 216(L) 250 - 450 mcg/dL LAB CHEMISTRY METHOD 07/05/2024 2:04 PM EST [facility] Iron Saturation 7(L) 15 - 50 % LAB CHEMISTRY METHOD 07/05/2024 2:04 PM EST [facility] Blood Venous blood specimen / Unknown Venipuncture / Unknown 07/05/2024 9:24 AM EST 07/05/2024 1:18 PM EST us Lazaro Santoyo MD LAB BLOOD ORDERABLES Final Resul t Performing Organization Address [facility] de Phone Number [facility] [address] [place] [address], [place] [phone] * (ABNORMAL) Basic metabolic panel (07/05/2024 9:24 AM EST) Sodium 135 133 - 145 mmol/L LAB CHEMISTRY METHOD 07/05/2024 2:27 PM EST [facility] Potassium 4.8 3.5 - 5.5 mmol/L LAB CHEMISTRY METHOD 07/05/2024 2:27 PM EST [facility] Chloride 105 96 - 110 mmol/L LAB CHEMISTRY METHOD 07/05/2024 2:27 PM EST [facility] CO2 19(L) 21 - 32 [...] 07/05/2024 2:27 PM [facility] Blood Venous blood specimen / Unknown Venipuncture / Unknown 07/05/2024 9:24 AM EST 07/05/2024 1:18 PM EST us Lazaro Santoyo MD LAB BLOOD ORDERABLES Final Resul t [facility] [address] [place] [address], * (ABNORMAL) Complete blood count (07/05/2024 9:24 [...] 07/05/2024 2:00 PM [facility] MPV 10.5 7.0 - 11.0 FL LAB HEMETOLOGY METHOD 07/05/2024 2:00 PM [facility] NRBC 0.0 <1.0 % LAB HEMETOLOGY METHOD 07/05/2024 2:00 PM [facility] NRBC Absolute 0.00 <0.10 K/mcL LAB HEMETOLOGY METHOD 07/05/2024 2:00 PM [facility] Blood Venous blood specimen / Unknown Venipuncture / Unknown 07/05/2024 9:24 AM EST 07/05/2024 1:18 PM EST us Lazaro Santoyo MD LAB BLOOD ORDERABLES Final Resul t [facility] [address] [place] [address], documented in this encounter Visit Diagnoses Diagnosis [...] documented as of this encounter Care Teams Cloth Shrinking Machine Operator Helper Relationship Specialty Start Date End Date Polo Kay NP [address] [place] [address] PCP - General Nurse Practitioner 12/28/24 documented as of this encounter
--- OUTSIDE RECORDS SUMMARY | 2025-05-18 06:56 | XMS_ITS | Encounter Summary ---
Author Organization [facility] Address [address] [place] [address] Care Team Providers Care Test Eng Name Role Phone Polo Kay NP Primary Care Provider +1- [phone] Encounter Details Date Type Department Care Team (Late st Contact Info) Description 07/01/2024 Lab Requisition [facility] - Main Lab [address] [facility] [place] [phone] Lazaro Santoyo MD [address] [place] [address] Dysuria Social History Tobacco Use Types Packs/Day [...] STS ST LTG General No Ene Moffett, UNINDENTURED APPRENTICE Note: Pt will improve cognitive linguistic function to participate and communicate in basic ADLs supervision ST STGs General No Ene Moffett, UNINDENTURED APPRENTICE Note: Pt will participate with development [...] reflex microscopic (07/01/2024 6:00 AM EST) Specific [place] Urine 1.010 1.003 - 1.030 LAB URINALYSIS - AUTOMATED METHOD 07/01/2024 11:15 AM [facility] pH, Urine 5.5 5.0 - 8.0 pH LAB URINALYSIS - AUTOMATED METHOD 07/01/2024 11:15 AM [facility] Leukocytes, Urine Moderate(A) Negative LAB URINALYSIS - AUTOMATED METHOD 07/01/2024 11:15 AM [facility] Nitrite, Urine Negative Negative LAB URINALYSIS - AUTOMATED METHOD 07/01/2024 11:15 AM [facility] Protein, Urine 300(A) <=Trace mg/dL LAB URINALYSIS - AUTOMATED METHOD 07/01/2024 11:15 AM [facility] Glucose, Urine Negative Negative mg/dL LAB URINALYSIS - AUTOMATED METHOD 07/01/2024 11:15 AM [facility] Ketones, Urine Negative Negative mg/dL LAB URINALYSIS - AUTOMATED METHOD 07/01/2024 11:15 AM [facility] Urobilinogen , Urine 0.2 0.2 - 1.0 mg/dL LAB URINALYSIS - AUTOMATED METHOD 07/01/2024 11:15 AM [facility] Bilirubin, Urine Negative Negative LAB URINALYSIS - AUTOMATED METHOD 07/01/2024 11:15 AM [facility] Blood, Urine Negative Negative LAB URINALYSIS - AUTOMATED METHOD 07/01/2024 11:15 AM [facility] RBC, Urine 2.6 0 - 4 /HPF LAB URINALYSIS - AUTOMATED METHOD 07/01/2024 11:15 AM [facility] WBC, Urine 73.6(H) 0 - 4 /HPF LAB URINALYSIS - AUTOMATED METHOD 07/01/2024 11:15 AM [facility] Squamous Epithelial, Urine 27 0 - 60 /LPF LAB URINALYSIS - AUTOMATED METHOD 07/01/2024 11:15 AM [facility] Bacteria, Urine Many(A) Negative /HPF LAB URINALYSIS - AUTOMATED METHOD 07/01/2024 11:15 AM [facility] Hyaline Casts, Urine 0.8 0 - 3 /LPF LAB URINALYSIS - AUTOMATED METHOD 07/01/2024 11:15 AM [facility] Urine Urine specimen obtained by clean catch procedure / Unknown 07/01/2024 6:00 AM EST 07/01/2024 10:53 AM EST Lazaro Santoyo MD LAB URINE ORDERABLES Final Resul t [facility] [address] [place] [address], * (ABNORMAL) Culture urine (07/01/2024 6:00 AM EST) Culture, Urine 50,000-100,000 CFU/mL Escherichia coli(A) TOVA 07/03/2024 10:30 AM [facility] Urine Urine specimen obtained by [...] MICROBIOLOGY - GENERAL ORDER CHRISTINE Final Result [facility] ([facility] [address] [place] [address], documented in this encounter Visit Diagnoses Diagnosis [...] 02/22/2025 7:04 PM EDT Respiratory Rule-Out 04/30/2025 04/30/202513/2 025 3:53 PM EST COVID-19 Rule-Out 04/30/2025 04/30/2025 04/30/2025 3:53 PM EST documented as of this encounter Care Teams Test Eng Relationship Specialty Start Date End Date Polo Kay NP [address] [place] [address] PCP - General Nurse Practitioner 12/28/24 documented as of this encounter
--- OUTSIDE RECORDS SUMMARY | 2025-05-18 06:56 | XMS_ITS | Encounter Summary ---
Author Organization [facility] Address [address] [place] [address] Care Team Providers Care Skills Instructor Name Role Phone Eliza Polo NIX Primary Care Provider +1- [phone] Encounter Details Date Type Department Care Team (Late st Contact Info) Description 07/15/2024 Lab Requisition [facility] - Main Lab [address] [facility] [place] [phone] Lazaro Santoyo MD [address] [place] [address] Essential (primary) hypertension Social History Tobacco Use [...] STS ST LTG General No Ene Moffett, HIGH SCHOOL ADMISSIONS REPRESENTATIVE Note: Pt will improve cognitive linguistic function to participate and communicate in basic ADLs supervision ST STGs General No Ene Moffett, HIGH SCHOOL ADMISSIONS REPRESENTATIVE Note: Pt will participate with development of [...] K/mcL LAB HEMETOLOGY METHOD 07/15/2024 12:50 PM [facility] RBC 2.40(L) 3.80 - 4.80 M/mcL LAB HEMETOLOGY METHOD 07/15/2024 12:50 PM [facility] Hemoglobin 6.9(L) 11.5 - 16.0 g/dL LAB HEMETOLOGY METHOD 07/15/2024 12:50 PM [facility] Hematocrit 21.6(L) 35.0 - 47.0 % LAB HEMETOLOGY METHOD 07/15/2024 12:50 PM [facility] MCV 90.0 79.0 - 98.0 FL LAB HEMETOLOGY METHOD 07/15/2024 12:50 PM [facility] MCH 28.8 27.0 - 32.0 pcg LAB HEMETOLOGY METHOD 07/15/2024 12:50 PM [facility] MCHC 31.9(L) 32.0 - 37.0 g/dL LAB HEMETOLOGY METHOD 07/15/2024 12:50 PM [facility] RDW 13.1 11.0 - 15.0 % LAB HEMETOLOGY METHOD 07/15/2024 12:50 PM [facility] Platelets 396 130 - 400 K/mcL LAB HEMETOLOGY METHOD 07/15/2024 12:50 PM [facility] MPV 9.9 7.0 - 11.0 FL LAB HEMETOLOGY METHOD 07/15/2024 12:50 PM EST [facility] NRBC 0.0 <1.0 % LAB HEMETOLOGY METHOD 07/15/2024 12:50 PM EST [facility] NRBC Absolute 0.00 <0.10 K/mcL LAB HEMETOLOGY METHOD 07/15/2024 12:50 PM EST [facility] Blood Venous blood specimen / Unknown Venipuncture / Unknown 07/15/2024 8:05 AM EST 07/15/2024 11:36 AM EST us Lazaro Santoyo MD LAB BLOOD ORDERABLES Final Resul t [facility] [address] [place] [address], [place] [phone] documented in this encounter Visit Diagnoses Diagnosis [...] documented as of this encounter Care Teams Skills Instructor Relationship Specialty Start Date End Date Polo Kay NP [address] [place] [address] PCP - General Nurse Practitioner 12/28/24 documented as of this encounter
--- OUTSIDE RECORDS SUMMARY | 2025-05-18 06:57 | XMS_ITS | Clinical Summary ---
Author Organization [facility] Address [address] [facility] [address] [place] [phone] Phone Care Team Providers Care Middle School Math Teacher Name Role Phone Pcp, Not Required Primary Care Provider Unavaila ble Social History Tobacco Use Types Packs/Day Years [...] on file Medical Devices Not on file Insurance [facility] [employer] MEDICARE REPLACEMENT MEDICARE REPLACEMENT MEDICARE REPLACEMENT MEDICARE REPLACEMENT MEDICARE REPLACEMENT MEDICARE REPLACEMENT Care Teams [employer] Math Teacher Relationship Specialty Start Date End Date Pcp, Not Required PCP - General 02/02/25 Additional Source Comments The information contained in this document represents components of the legal health record. It is not the complete legal health record.[facility]
--- OUTSIDE RECORDS SUMMARY | 2025-05-18 06:57 | XMS_ITS | Data Portability ---
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 Primary Care Provider Assessment Encounter Date Assessment Date Assessment LastModified by Organization Details LastModified Time 12/30/2023 12/30/2023 I have seen and examined the patient independently and confirmed the findings above with the FINISHING RANGE OPERATOR student note. Management plan discussed with the FINISHING RANGE OPERATOR student personally. [email or web address] Not available 12/30/2023 16:22:11 Plan of Treatment [...] Organization Details Recorded Time Hypertensi ve disorder 50720428 Active 2023 MONIE SEWELL NP [address] [facility], [facility] [address], [place], [address], [facility] 4 11:37:27 Insulin treated type 2 diabetes mellitus 606498646 Active 2023 MONIE SEWELL NP [address] [facility], [address], [place], [address], [facility] 4 11:38:13 Hyperlipid emia 19647228 Active 2023 MONIE SEWELL NP [address] [facility], [address], [place], [address], [facility] 4 11:38:21 History of cerebrovas cular accident 823673498 Active 2023 MONIE SEWELL NP [address], [address], [place], [address], [facility] 4 11:38:32 Tobacco user 484764836 Active 2023 MONIE SEWELL NP [address], [place], [address], [facility] 4 11:38:43 Ischemic stroke 690922847 Active 2023 Right sided distal M1 MCA ischemic stroke 11/28/23, failed thrombecto my at [facility]. MONIE SEWELL NP [address] [facility], [address], [place], [address], [facility] 4 11:52:39 Left hemiparesi s 803842279 Active 2023 spastic post R ischemic CVA 11/28/23 MONIE SEWELL NP [address] [facility], [address], [place], [address], [facility] 4 11:54:16 Dysphagia 56254705 Active 2023 due to R ischemic CVA 11/28/23 MONIE SEWELL NP [address] [facility], [address], [place], [address], [facility] 4 11:54:02 Mass of salivary gland 108010824 Active 2023 right sided, seen by ENT Dr. Carver back in 2020 but did not follow up. Recent CT of neck done in ER on 11/21/23 showed right parotid gland mass, 2.4 cm, sent home with ENT referral. MONIE SEWELL NP [address], [address], [place], [address], [facility] 4 11:57:34 Hyperkalem ia 36686790 Active 2023 MONIE SEWELL NP [address], [address], [place], [address], [facility] 4 12:03:01 Liver function tests outside reference range 533057948 Active 2023 MONIE SEWELL NP [address], [address], [place], [address], [facility] 4 12:03:27 Chronic kidney disease 690103432 Active 2023 MONIE SEWELL NP [address], [place], [address], [facility] 4 12:03:52 Diabetic peripheral neuropathy 202674347 Active 2023 Elena Cazares MD [address], [address], [place], [address], [facility] 4 18:46:24 Restless legs syndrome 79083529 Active 2023 Elena Cazares MD [address], [address], [place], [address], [facility] 4 18:53:16 Anemia 608509517 Active 2023 MONIE SEWELL NP [address] [facility], [address], [place], [address], [facility] 4 14:37:35 Problem Notes None recorded. Medical Equipment None Reported. Allergies No known drug allergies Vitals Date Recorded Body height Heart rate Respiratory rate Body temperature Oxygen saturation Systolic And Diastolic Provider Name and Address Organization Details Last Updated DateTime 4 175.26 cm 66 /min 16 /min 98.2 [degF] 98 % 140/87 mm[Hg] MONIE SEWELL NP [address] [facility], [address], [place], [address], [facility] 4 14:24:13 Date Recorded Body height Heart rate Respiratory rate Body temperature Oxygen saturation Systolic And Diastolic Provider Name and Address Organization Details Last Updated DateTime 4 175.26 cm 88 /min 18 /min 98.2 [degF] 97 % 134/58 mm[Hg] MONIE SEWELL NP [address], [address], [place], [address], [facility] 4 10:51:13 Date Recorded Body height Body weight Heart rate Respiratory rate Body temperature Oxygen saturation Systolic And Diastolic Provider Name and Address Organization Details Last Updated DateTime 4 175.26 cm 64208.3 3 g 91 /min 18 /min 97.1 [degF] 97 % 160/60 mm[Hg] Vicenta Lundberg NP [address] [facility] [address], [place], [address], [facility] 4 15:03:59 Date Recorded Body height Body mass index (BMI) Body weight Heart rate Respiratory rate Body temperature Oxygen saturation Systolic And Diastolic Provider Name and Address Organization Details Last Updated DateTime 4 175.26 cm 24.5 kg/m2 52197.3 3 g 81 /min 18 /min 98.2 [degF] 98 % 154/69 mm[Hg] Charline condon [facility] 4 15:20:00 Date Recorded Body height Heart rate Respiratory rate Body temperature Oxygen saturation Systolic And Diastolic Provider Name and Address Organization Details Last Updated DateTime 4 175.26 cm 72 /min 18 /min 98.2 [degF] 99 % 150/68 mm[Hg] MONIE SEWELL NP [address] [facility] [address], [place], [address], [facility] 4 14:12:19 Social History Question Answer Notes LastModified by Organizat ion Details LastModified Time Tobacco Smoking Status Former Smoker hasn't smoked since 11/28/23 when she had stroke Elena Cazares MD [address] [facility] [address], [place], [address], [facility] 12/22/2023 18:36:46 Do You Have An Advance Directive? Yes Information not available 12/22/2023 What Is Your Code Status? Full Code [email or web address] Information not available 12/18/2023 Where Do You Live? Apartment Lives With , [address]nd [address] Daughter Lives On 1st Fl. [email or web address] Information not available 12/18/2023 Legal Guardian? No Informati on not available 12/22/2023 Do You Have A Medical Power Of Goldbeater? Yes Has HCP, Not Invoked Information not available 12/22/2023 What Was The Date Of Your Most Recent Tobacco Screening? 12/22/2023 Information not available 12/22/2023 Do You Have An Out Of Hospital DNR? Yes [email or web address] Information not available 12/18/2023 What Is Your Relationship Status? Information not available 12/22/2023 How Much Tobacco Do You Smoke? 1 PPD [email or web address] Information not available 12/18/2023 Has Tobacco Cessation Counseling Been Provided? Yes [email or web address] Information not available 12/18/2023 On What Date Was Tobacco Cessation Counseling Provided? 12/22/2023 Says She No Longer Smokes, Stroke Was Her Answer From God On The Way To Quit Smoking, Does Need Patch, Because She Is Getting Cravings. Information not available 12/22/2023 How Many Years Have You Smoked Tobacco? 40 [email or web address] Information not available 12/18/2023 Sex: Unknown Functional Status Question Answer Note LastModified by Organizat ion Details LastModified Time Do you use any illicit or recreational drugs? No Information not available 12/18/2023 Do you or have you ever used any other forms of tobacco or nicotine? No [email or web address] Information not available 12/18/2023 What is your level of alcohol consumption? None Information not available 12/18/2023 Mental Status None recorded. Family History Relationship Description Onset Age of this Age Resolved Age Notes LastModified by Organization Details LastModified Time Paternal Grandmother Cerebrovascu lar accident Not available 05/2023 12:43:21 Medical History No medical history recorded. Gynecological HistoryNo gynecological history recorded. Obstetrics History GPAL:G 0 P 0 0 0 0 Immunizations Vaccine Type Date Status Note Provider Nam e and Address Organization Details Recorded Time Hep B, unspecified formulation 1 completed Lacey Peña [facility] 12/25/2023 12:29:35 Hep B, unspecified formulation 2 completed Lacey Peña [facility] 12/25/2023 12:29:46 Tdap 1 sada Peña [facility] 12/25/2023 12:30:00 Tdap 6 completed Lacey Peña [facility] 12/25/2023 12:30:09 Pneumococcal Conjugate, unspecified formulation 3 completed Lacey Peña [facility], [facility] 12/25/2023 12:31:07 pneumococcal polysaccharide PPV23 1 completed Lacey Peña [facility], [facility] 12/25/2023 12:31:25 pneumococcal polysaccharide PPV23 6 completed Laceyelena Peña [facility] 12/25/2023 12:31:33 SARS-COV-2 (COVID-19) vaccine, UNSPECIFIED 1 completed Lacey Peña [facility], [facility] 12/25/2023 12:31:56 SARS-COV-2 (COVID-19) vaccine, UNSPECIFIED 1 completed Lacey Peña [facility] 12/25/2023 12:32:07 SARS-COV-2 (COVID-19) vaccine, UNSPECIFIED 2 completed Lacey Peña [facility] 12/25/2023 12:32:13 zoster, unspecified formulation 0 completed Lacey Peña [facility] 12/25/2023 12:32:29 zoster, unspecified formulation 1 completed Laceyelena Peña [facility] 12/25/2023 12:32:36 Past Encounters Encounter ID Performer Location Encounter Start Date Encounter Closed Date Diagnosis/Indication Diagnosis SNOMED-CT Code Diagnosis ICD10 Code Diagnosis IMO Codes Diagnosis Note [id number] MONIE SEWELL NP [address] [address] 12/18/2023 11:32:44 12/19/2023 15:30:47 Ischemic stroke 457712646 I63.9 Presented to [facility] 11/27 with left sided weakness, CTA head and neck significan t for distal right M1 occlusion. Transferre d to [facility], underwent a thrombecto my, M1 thrombus found to be impenetrab le. Started ASA and statin.Tra nsferred to [facility] 12/02 - 12/16 for acute rehab, now [...] Dr. Kaufman, 01/13. [address] [place] [address]. [phone] 1130 day Holter rec. as oupt.Monit or VS, labs, pain, CSMRefer to Dr. Schwartz, PMRAdjust tx. as needed Goal is to return home. Addendum - BP high with headache - see HTN for POC Left hemiparesis 0924965 00 G81.90 See above, s/p R ischemic CVA 7/12/24PMR consultCon tinue baclofen for tone, adjust as needed Dysphagia 10114204 R13.1 0 See above, s/p R ischemic CVAContinu e modified diet, DROP WIRE BUILDER Hypertensive disorder 38 134813 I10 Meds adjusted at [facility].Cur rently on:coreg 3.125 mg bidamlodip ine 10 mg qdMonitor VS, labs, adjust tx. prn Addendum - BP staying elevated today, goal < 140/80. Also with H/A. Increase coreg to 6.25 mg bid, start tonight, hydralazin e 25 mg x 1 dose this afternoon, and hydralazin e 25 mg q 8 hr, hold for SBP<140. Monitor closely Hyperlipidemia 39868030 E78.5 Atorvastat in 80 mg qd added post CVA - continue.M onitor LFTs q mond. x 3 (current levels with mild elevation) and lipid panel prn Insulin tr eated type 2 diabetes mellitus 104581807 Z79.4 A1C 8.4% todayCurre ntly on:Glipizi de 5 mg bidlantus 24 U q HSlispro SSI - not on JUL, will re-order Addendum BS currently in 300s, will give 6 units of lispro to coverCar b Control dietMonito r intake, BS, adjust meds as needed. Tobacco user 462329357 Z 72.0 >1 ppdContinu e nicoderm patch 14 mg/d - titrate down with goal of discontinu ing. Mass of sa livary gland 494796049 K11.8 Apparently has had since 2020, did not follow up with ENT at thst time.Refer red to ENT Judith MORALES - to notify us of appt. date and time. Hyperkalemia 65403031 E8 7.5 K 5.8, 5.5 at [facility] ars losartan and hydralazin e stoppedK 4.9 todayMonit or CMP q mon. x 3 Chronic ki dney disease 875348721 N18.9 ??Get old records from PCP to verifyGFR [facility] stoppedMai ntain fluidsMoni tor output.CMP q mon. x 3Avoid nephrotoxi c meds. Liver func tion tests outside reference range 275766568 R94.5 Mild elevation of SGOT SGPT on labs today.On high dose statin - follow q wk. x 3Avoid other hepatotoxi cs Diabetic p eripheral neuropathy 592248197 E11.40 ??VS. RLSRLEHas used meds in past, but unsure of nameAs above, will get records from PCPIn the mean time, add gabapentin 100 mg q HSMonitor [id number] Elena Cazares MD [address] [address] 12/22/2023 17:11:22 12/23/2023 14:45:01 Ischemic stroke 068057501 I63.311 With some recovery post CVA.Good rehab potential. Needs PT/OT for strengthen ing, balance, gait training, safety and function.N eeds DROP WIRE BUILDER for swallowing , cognition and speech.Con tinue [...] Dr. Kaufman, 01/13. [address] [place] [address]. [phone] [facility] arrange 30 day Holter rec. as outpt.Dr. Schwartz, PMR, to follow.Adj ust tx. as needed Left hemiparesis 7031186 00 G81.14 As above. Dysphagia 41969766 R13.1 0 As above.Cont inue modified diet and DROP WIRE BUILDER tx.Monitor for aspiration . Hypertensive disorder 38 865900 I10 SBP continues to be borderline most of the time. DBP is good.Goal is <140 SBPContinu e carvedilol 6.25 mg BID (increased on 12/18), amlodipine 10 mg qd and hydralazin e 25 mg q 8 hrs-will change parameters to hold if SBP<135.Mo nitor BP and labs Hyperlipidemia 73119281 E78.49 Continue atorvastat in 80 mg qd.Conside r decrease in dose if LFTs remain elevated.M onitor LFTs q week x 3 (not drawn today, ordered for tomorrow) Insulin tr eated type 2 diabetes mellitus 466301371 E11.65 HgA1C 8.4, sugars since here on the high side. Likely due to food brought in by family.Con tinue glipizide 5 mg BID, lantus 24 U qhs and SSI.Encour age keeping to diet parameters .Consider increasing lantus or adding 3rd agent.Tracie tor fingerstic ks TID and HgA1C q 3 months. Tobacco user [id number] F 17.210 Committed to quitting.C ontinue nicoderm patch 14 mg/d x 1 month, then down to 7 mg x 1-2 months then d/cContinu e to support her in abstinence . Mass of sa livary gland 543946284 K11.8 Apparently has had since 2020, did not follow up with ENT at thst time.Refer red to ENT W. [place] - to notify us of appt. date and time. Hyperkalemia 39191084 E8 7.5 K+ was WNL last wk.No labs done today.Tracie tor CMP q wk. x 3, ordered for tomorrow. Chronic ki dney disease 072385538 N18.32 Appears at this baseline since 2021.Sergo nue to avoid nephrotoxi c meds as able.Monit or labs.Renal consult prn. Liver func tion tests outside reference range 328427786 R94.5 Mild elevation las twk.Rechec k tomorrow.C onsider lowering dose of statin if remains elevated. Abrasion 981730225 S90.4 15A With superficia l abrasion.W ill use abx ointment qAM with gauze covering and then leave open to air at night.Tracie tor for healing. Restless l egs syndrome 88325446 G25.81 Could be neuropathy , but seems to me to be more like RLS.Contin ue gabapentin 100 mg qhsMonitor sxs [id number] MONIE SEWELL NP [facility] [address] [place] [address] 12/23/2023 10:34:11 12/24/2023 19:11:10 Ischemic stroke 910336438 I63.311 With some recovery post CVA.Good rehab potential. Needs PT/OT for strengthen ing, balance, gait training, safety and function.N eeds DROP WIRE BUILDER for swallowing , cognition and speech.Con tinue [...] Dr. Kaufman, 01/13. [address] [place] [address]. [phone] [facility] arrange 30 day Holter rec. as outpt.Dr. Schwartz, PMR, to follow.Adj ust tx. as neededWatc derrick LFTs closely due to high dose statin use and familys note of Nephrologi st recommendi ng to stop. Left hemiparesis 0311345 00 G81.14 As above. Dysphagia 26148589 R13.1 0 As above.Cont inue modified diet and DROP WIRE BUILDER tx.Monitor for aspiration . Hypertensive disorder 38 809149 I10 SBP continues to be borderline most of the time. DBP is good.Goal is <140 SBPContinu e carvedilol 6.25 mg BID (increased on 12/18), amlodipine 10 mg qd and hydralazin e 25 mg q 8 hrs-will change parameters to hold if SBP<135.Mo nitor BP and labs, continue to adjust as needed. Hyperlipidemia 88849909 E78.49 Continue atorvastat in 80 mg qd.Conside r decrease in dose if LFTs remain elevated.M onitor LFTs q week x 3 (not drawn today, ordered for tomorrow) Insulin tr eated type 2 diabetes mellitus 695962203 E11.65 HgA1C 8.4, sugars since here on the high side. Likely due to food brought in by family.Con tinue glipizide 5 mg BID, lantus 24 U qhs and SSI.Encour age keeping to diet parameters .Consider increasing lantus or adding 3rd agent.Tracie tor fingerstic ks TID and HgA1C q 3 months. Tobacco user [id number] F 17.210 Committed to quitting.C ontinue nicoderm patch 14 mg/d x 1 month, then down to 7 mg x 1-2 months then d/cContinu e to support her in abstinence . Mass of sa livary gland 739664653 K11.8 Apparently has had since 2020, did not follow up with ENT at thst time.Refer red to JALEEL W. [place] - to notify us of appt. date and time. Hyperkalemia 55989229 E8 7.5 K+ 4.9 Monitor CMP q wk. x 3 Chronic ki dney disease 213781014 N18.32 Appears at this baseline since 2021.Sergo nue to avoid nephrotoxi c meds as able.Will stop gabapentin as requested by family, even though it is a very low dose.Monit or labs.Renal consult prn. Liver func tion tests outside reference range 280762050 R94.5 Mild elevation last twk., a little better this weekRechec k friday.Con emergency vehicle dispatcher lowering dose or stopping statin if remains elevated. Restless l egs syndrome 55776531 G25.81 Could be neuropathy , but seems to me to be more like RLS.gabape ntin 100 mg qhs added, but will stop now at request of family.Mon itor sxs closely, may consider an alternate agent if problemati c. Abrasion 581967960 S90.4 15A With superficia l abrasion.W ill use abx ointment qAM with gauze covering and then leave open to air at night.Tracie tor for healing. Anemia 104353927 D64.9 Hgb. dropping, now 8.9Normocy tic.Alicia tly on heparin - hemetest stools x 3Check Fe profile, B12, folate x 1Repeat CBC 12/28Monito r for s/s acive bleed. [id number] MONIE SEWELL NP [facility] [address] [place] [address] 12/25/2023 10:50:07 12/30/2023 15:42:18 Ischemic stroke 175944042 I63.311 With some recovery post CVA.Good rehab potential. Needs PT/OT for strengthen ing, balance, gait training, safety and function.N eeds DROP WIRE BUILDER for swallowing , cognition and speech.Con tinue fall precaution s.Monitor for safety. For spasticity , baclofen helping a little, but not enough, so now trialing tizanidine 2 mg q 8 hrsper recs. from PMR with plans to increase as tolerated. Reported as not helpful at [facility], but will monitor and increase dose as tolerated. Continue ASA 81 mg qd, atorvastat in 80 mg qd, and heparin 5000 U BID for DVT prophylaxi s until more active.Fol low up with Neuro, Dr. Kaufman, 01/13. [address] [place] [address]. [phone] [facility] arrange 30 day Holter rec. as outpt.Dr. Schwartz, PMR now following. Adjust tx. as neededWatc derrick LFTs closely due to high dose statin use and familys note of Nephrologi st recommendi ng to stop. CMP q friday Left hemiparesis 2656484 00 G81.14 As above. Dysphagia 34613232 R13.1 0 As above.Cont inue modified diet and DROP WIRE BUILDER tx.Monitor for aspiration . Hypertensive disorder 38 594648 I10 SBP continues to be borderline most of the time. DBP is good.Goal is <140 SBPContinu e carvedilol 6.25 mg BID (increased on 12/18), amlodipine 10 mg qd and hydralazin e 25 mg q 8 hrs-change d parameters to hold if SBP<135.Ti zanidine just added, may bring BP down furtherMon itor BP and labs, continue to adjust as needed. Hyperlipidemia 42320698 E78.49 Continue atorvastat in 80 mg qd.Conside r decrease in dose if LFTs remain elevated.M onitor LFTs q week x 3 (not drawn today, ordered for tomorrow) Insulin tr eated type 2 diabetes mellitus 376342982 E11.65 HgA1C 8.4,BS readings all over.Sergo nue glipizide 5 mg BID, lantus 24 U qhs and SSI.Encour age keeping to diet parameters .Consider increasing lantus or adding 3rd agent.Tracie tor fingerstic ks TID and HgA1C q 3 months. Tobacco user [id number] F 17.210 Committed to quitting.C ontinue nicoderm patch 14 mg/d x 1 month, then down to 7 mg x 1-2 months then d/cContinu e to support her in abstinence . Mass of sa livary gland 526791408 K11.8 Apparently has had since 2020, did not follow up with ENT at thst time.Refer red to ENT [facility]. [facility] - to notify us of appt. date and time. Hyperkalemia 08955495 E8 7.5 K+ 5.3 Monitor CMP q wk. x 3 Chronic ki dney disease 620826352 N18.32 Appears at this baseline since 2021.Sergo nue to avoid nephrotoxi c meds as able.Will stop gabapentin as requested by family, even though it is a very low dose.Monit or labs.Renal consult prn. Liver func tion tests outside reference range 822764766 R94.5 Mild elevation last twk., a little better this weekRechec k friday.Con emergency vehicle dispatcher lowering dose or stopping statin if remains elevated. Restless l egs syndrome 36214358 G25.81 Could be neuropathy , but seems to me to be more like RLS.gabape ntin 100 mg qhs added, but stopped per request of family.Pt. reporting sx. todayAdd requip 0.25 mg q HS, titrate up as needed/tony eratedMoni tor sxs closely Abrasion 081094919 S90.4 15A With superficia l abrasion.W ill use abx ointment qAM with gauze covering and then leave open to air at night.Tracie tor for healing. Anemia 261286225 D64.9 Hgb. dropping as low as 8.9, recheck 9.2Normocy tic.Alicia tly on heparin - hemetest stools x 3Check Fe profile, B12, folate x 1 - all NLRepeat CBC 12/28Monito r for s/s active bleed. [id number] Vicenta Lundberg NP [facility] [address] [facility] [place] [address] 12/26/2023 15:00:46 12/30/2023 15:52:03 Ischemic stroke 160453112 I63.311 With some recovery post CVA.Good rehab potential. Needs PT/OT for strengthen ing, balance, gait training, safety and function.N eeds DROP WIRE BUILDER for swallowing , cognition and speech.Con tinue fall precaution s.Monitor for safety. cont-tizan idine 2 mg q 8 hrs per recs. from PMR with plans to increase as tolerated. (baclofen dc'd as not helpful)-A SA 81 mg qdatorvast atin 80 mg qdheparin 5000 U BID for DVT prophylaxi s until more active.Fol low up with Neuro, Dr. Kaufman, 01/13. [address] [place] [address]. [phone] 11[facility] arrange 30 day Holter rec. as outpt.Dr. Schwartz, PMR now following. Adjust tx. as neededcont watching LFTs closely due to high dose statin use and familys note of Nephrologi st recommendi ng to stop. CMP q friday Left hemiparesis 1381061 00 G81.14 As above. Dysphagia 88686233 R13.1 0 As above.Cont inue modified diet and DROP WIRE BUILDER tx.Monitor for aspiration . Hypertensive disorder 38 298829 I10 SBP continues to be borderline high most of the time. DBP is good.Goal is <140 SBPContinu ecarvedilo l 6.25 mg BID (increased on 12/18)amlodi pine 10 mg qdhydralaz ine 25 mg q 8 hrs-change d parameters to hold if SBP<135.Ti zanidine just added, may bring BP down furtherMon itor BP and labs, continue to adjust as neededlabs on friday. Hyperlipidemia 77464382 E78.49 Continueat orvastatin 80 mg qdConsider decrease in dose if LFTs remain elevated.M onitor LFTs q week x 3 (not drawn today, ordered for tomorrow) Insulin tr eated type 2 diabetes mellitus 418111072 E11.65 HgA1C 8.4,BS 100-300sCo ntinueglip izide 5 mg BID12/25 increase lantus 24 to 28 U qhs and SSI.Encour age keeping to diet parameters .adjust and titrate as neededMoni tor fingerstic ks TID and HgA1C q 3 months. Tobacco user [id number] F 17.210 Committed to quitting.C ontinuenic oderm patch 14 mg/d x 1 month, then down to 7 mg x 1-2 months then d/cContinu e to support her in abstinence . Mass of sa livary gland 461462798 K11.8 Apparently has had since 2020, did not follow up with ENT at that time.Refer red to ENT [facility]. [place] - to notify us of appt. date and time. Hyperkalemia 23631774 E8 7.5 K+ 5.3 on 12/23Monitor CMP q wk. x 3 Chronic ki dney disease 774550967 N18.32 Appears at this baseline since 2021.Sergo nue to avoid nephrotoxi c meds as able.gabap entin stopped as requested by family, even though it is a very low dose.Monit or labs.Renal consult prn. Liver func tion tests outside reference range [id number] R94.5 Mild elevation last twk., a little better this weekRechec k friday.Con emergency vehicle dispatcher lowering dose or stopping statin if remains elevated. Restless l egs syndrome 62232806 G25.81 ? RLS.12/25 pt/family thought she received [...] as needed/tony eratedMoni tor sxs closely Abrasion [id number] S90.4 15A With superficia l abrasion.W ill use abx ointment qAM with gauze covering and then leave open to air at night.Tracie tor for healing. Anemia 261082155 D64.9 Hgb. dropping as low as 8.9, recheck 9.2 on 12/23Normocy tic.Alicia tly on heparin - hemetest stools x 3Check Fe profile, B12, folate x 1 - all NLRepeat CBC 12/28Monito r for s/s active bleed. [id number] MONIE SEWELL, DINAH [facility] [address] [place] [address] 12/30/2023 12:37:56 12/31/2023 13:33:40 Restless legs syndrome 08430142 G25.81 possible RLS.12/25 initiated Requip 0.25mg at bedtimeRem ains off gabapentin Pt. reporting no sx. todaycontr equip 0.25 mg q HS, titrate up as needed/tony eratedMoni tor sxs closely Ischemic stroke [id number] 2 I63.311 With some recovery post CVA.Contin ues to work with PT/OT- making progressCo ntinues to need PT/OT for strengthen ing, balance, gait training, safety and function.C ontinues to need DROP WIRE BUILDER for swallowing , cognition and speech.Con tinue fall precaution s.Monitor for safety. continue:t izanidine 2 mg q 8 hrs per recs. from PMR- monitor for need to increaseAS A 81 mg qdatorvast atin 80 mg qdheparin 5000 U BID for DVT prophylaxi s until more active.Fol low up with Neuro, Dr. Kaufman, 01/13. [address] [place] [address]. [phone] [facility] arrange 30 day Holter rec. as outpt.Dr. Schwartz, PMR now following. Adjust tx. as neededcont watching LFTs closely due to high dose statin use and family's note of Nephrologi st recommendi ng to stop.Sergo nue with CMP q friday Insulin tr eated type 2 diabetes mellitus 512604998 E11.65 HgA1C 8.4 (12/23/23),B S 100-300sLa ntus increased on 12/26/23, may need to consider another increase or add another agentConti nue:glipiz jared 5 mg BIDLantus 28 U qhs and SSI.Encour age to follow dietadjust and titrate as neededSeemai tor fingerstic ks TID and HgA1C q 3 months. Left hemiparesis 3896545 00 G81.14 As above. Dysphagia 80223183 R13.1 0 Continues to work with DROP WIRE BUILDER for swallowing , cognition and speech.Con anant modified diet and DROP WIRE BUILDER tx.Monitor for aspiration . 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 [place] - to notify us of appt. date and time.Monit or for sx Hyperkalemia 80146236 E8 7.5 K+ 4.6 on 12/29Monito r CMP q wk. Chronic ki dney disease 892750721 N18.32 Baseline since 2021.Sergo nue to avoid nephrotoxi c meds as able.Remai ns off gabapentin as requested by familySeemai tor labs.Renal consult prn. Liver func tion tests outside reference range 705220557 R94.5 Labs improved.L abs- SGPT 45, SGOT 17.Conside r lowering dose or stopping statin if remains elevated. Abrasion 128918138 S90.4 15A With superficia l abrasion, left 4th and 5th toesContin ue to use abx ointment qAM with gauze covering and then leave open to air at night.Tracie tor for healing. Anemia 633935262 D64.9 Hgb. dropping as low as 8.9, recheck 9.2 on 12/23, recheck today 8.1Normocy tic.Jessen tly on heparin 5000U BIDFe profile, B12, folate x 1 - all NLhemetest stools x 3 - discussed with nsg.CBC 01/05Monito r for s/s active bleed. [id number] MONIE SEWELL NP [facility] [address] [place] [address] 01/01/2024 14:10:57 01/05/2024 16:05:44 Restless legs syndrome 69502831 G25.81 possible RLS.12/25 initiated Requip 0.25mg at bedtimeRem ains off gabapentin Pt. reporting no sx. todaycontr equip 0.25 mg q HS, titrate up as needed/tony eratedMoni tor sxs closely Ischemic stroke 04067906 2 I63.311 With some recovery post CVA.Contin ues to work with PT/OT- making progressCo ntinues to need PT/OT for strengthen ing, balance, gait training, safety and function.C ontinues to need DROP WIRE BUILDER for swallowing , cognition and speech.Con tinue fall precaution s.Monitor for safety. continue:t izanidine 2 mg q 8 hrs per recs. from PMR- monitor for need to increaseAS A 81 mg qdatorvast atin 80 mg qdheparin 5000 U BID for DVT prophylaxi s until more active.Fol low up with Neuro, Dr. Kaufman, 01/13. [address] [place] [address]. [phone] 11Will arrange 30 day Holter rec. as outpt.Dr. Schwartz, PMR now following. Adjust tx. as neededcont watching LFTs closely due to high dose statin use and family's note of Nephrologi st recommendi ng to stop.Sergo nue with CMP q friday Left hemiparesis 4938330 00 G81.14 As above. Anemia 151360822 D64.9 Hgb. dropping as low as 8.9, recheck 9.2 on 12/23, recheck this week 8.1Normocy tic.Alicia tly on heparin 5000U BIDFe profile, B12, folate x 1 - all NLhemetest stools x 3 - discussed with nsg. as not done yet.CBC 01/05Monito r for s/s active bleed. Insulin tr eated type 2 diabetes mellitus 777381337 E11.65 HgA1C 8.4 (12/23/23),B S 100-300sLa ntus increased on 12/26/23, may need to consider another increase or add another agentConti nue:glipiz jared 5 mg BIDLantus 28 U qhs and SSI.Encour age to follow dietadjust and titrate as neededMoni tor fingerstic ks TID and HgA1C q 3 months. Dysphagia 94307480 R13.1 0 Continues to work with DROP WIRE BUILDER for swallowing , cognition and speech.Con anant modified diet and DROP WIRE BUILDER tx.Monitor for aspiration . Hypertensive disorder 38 606839 I10 SBP continues to be borderline high [...] labs, continue to adjust as needed Hyperlipidemia 39607070 E78.49 Continue atorvastat in 80 mg qd12/30/23 Labs improved- SGPT 45, SGOT 17Monitor labs periodical ly Tobacco user [id number] F 17.210 Remains committed to quitting.C ontinue nicoderm patch 14 mg/d x 1 month, then down to 7 mg x 1-2 months then d/cContinu e to provide supports Mass of sa livary gland 293460696 K11.8 Hx of had since 2020, did not follow up with ENT at that time.Refer red to ENT [facility]. [facility] - to notify us of appt. date and time.Monit or for sx Hyperkalemia 63579713 E8 7.5 K+ 4.6 on 12/29Monito r CMP q wk. Chronic ki dney disease 152216524 N18.32 Baseline since 2021.Sergo nue to avoid nephrotoxi c meds as able.Remai ns off gabapentin as requested by [facility] labs.Renal consult prn. Liver func tion tests outside reference range 898279796 R94.5 Labs improved.L abs- SGPT 45, SGOT 17.Conside r lowering dose or stopping statin if remains elevated. Abrasion 204475920 S90.4 15A With superficia l abrasion, left [...] Member ID Guarantor Name 12/18/2023 2 [place] [facility] Kisha Vickers [id number] Kisha Vickers (Kim) 12/18/2023 1 MEDICARE B-[place]: [employer] Kisha Vickers [id number] Kisha Vickers (Kim) Notes Date Note Type Note Provider Name and Address Organization Details Recorded Time 12/23/2023 text/html Kisha is seen today for an acute visit. She is a 58 yo woman who is here for subacute rehab after acute rehab at [facility], and previous hospitalization at [facility] for a right MCA stroke, s/p thrombectomy. She initially presented to the [facility] ED on 11/27 with c/o left facial droop and left sided numbness.Briefly, per Miguel d/c summary: 58-year-old female with past medical history including hypertension, insulin-dependent type 2 diabetes, hyperlipidemia, prior CVA with no residual deficits, tobacco user. Patient presented to [facility] emergency room on 11/27 for chief complaint of left-sided facial droop and weakness. Patient's last known well time was 9:30 PM the night prior. Upon presentation patient was noted to have persistent left-sided deficits. CT head unremarkable for acute intracranial pathology. CTA head and neck significant for distal right M1 occlusion with patency of distal branches. Patient [place] [facility] [place] and evaluation for endovascular thrombectomy. [...] monitor for 30 days and follow-up with [facility]. She was transferred to [facility] on 12/02. She participated with intensive rehab [...] gabapentin and statin should be stopped per Retirement Administrator due to her kidney function. Gabapentin was [...] smoker and HLD. MONIE SEWELL, DINAH [address] [facility], [address], [place], [address], [facility] - [employer] 12/23/2023 14:48:42 12/25/2023 text/html Kisha is seen today for an acute visit. She is a 58 yo woman who is here for subacute rehab after acute rehab at [facility], and previous hospitalization at [facility] for a right MCA stroke, s/p thrombectomy. She initially presented to the [facility] ED on 11/27 with c/o left facial droop and left sided numbness.Briefly, per Miguel d/c summary: 58-year-old female with past medical history including hypertension, insulin-dependent type 2 diabetes, hyperlipidemia, prior CVA with no residual deficits, tobacco user. Patient presented to [facility] emergency room on 11/27 for chief complaint of left-sided facial droop and weakness. Patient's last known well time was 9:30 PM the night prior. Upon presentation patient was noted to have persistent left-sided deficits. CT head unremarkable for acute intracranial pathology. CTA head and neck significant for distal right M1 occlusion with patency of distal branches. Patient was [place] [facility] [place] and evaluation for endovascular thrombectomy. [...] monitor for 30 days and follow-up with [facility]. She was transferred to [facility] on 12/02. She participated with intensive rehab [...] but stopped per family request stating her Retirement Administrator doesn't want her taking gabapentin or atorvastatin. Upon exam, Kisha is laying in bed, still with pain, anel. left side. She is also complaining of jumping legs again, not sleeping well because of this. 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 MONIE SEWELL NP [address] [place] [address], [address], [place], [address], [facility] 12/25/2023 11:22:55 12/26/2023 text/html Pt is seen today for an acute visit. Kisha is a 58 yo woman who is here for subacute rehab after acute rehab at [facility], and previous hospitalization at [facility] for a right MCA stroke, s/p thrombectomy. She initially presented to the [facility] ED on 11/27 with c/o left facial droop and left sided numbness.She was transferred here on 12/16 for rehab. While here she was started on requip for restless legs on 12/24 with FINISHING RANGE OPERATOR, however states she does not want [...] but stopped per family request stating her Retirement Administrator doesn't want her taking gabapentin or atorvastatin [...] residual deficits, tobacco user. Patient presented to [facility] emergency room on 11/27 for chief complaint of left-sided facial droop and weakness. Patient's last known well time was 9:30 PM the night prior. Upon presentation patient was noted to have persistent left-sided deficits. CT head unremarkable for acute intracranial pathology. CTA head and neck significant for distal right M1 occlusion with patency of distal branches. Patient was [place] [facility] [place] and evaluation for endovascular thrombectomy. [...] monitor for 30 days and follow-up with [facility]. She was transferred to [facility] on 12/02. She participated with intensive rehab [...] ENT after discharge Vicenta Lundberg NP [address] [facility], [address], [place], [address], [place] - [facility] 12/26/2023 15:31:39 12/30/2023 text/html ROS as noted in the HPI Kisha is seen today for an acute visit. Kisha is a 58 yo female who is here for SNF rehab services after acute rehab at [facility], and previous hospitalization at [facility] for a right MCA stroke and s/p thrombectomy. Kisha presented to the [facility] ED on 11/27 with left facial droop and left sided numbness. According to dc summary from [facility]: she presented to [facility] ER on 11/27 for CC left-sided facial droop and weakness. Patient's last known well time was 9:30 PM the night prior. Patient was noted to have persistent left-sided deficits. CT head unremarkable for acute intracranial pathology. CTA head and neck significant for distal right M1 occlusion with patency of distal branches. Patient was [place] [facility] [place] and evaluation for endovascular thrombectomy. [...] Patient was initiated on aspirin and statin. DROP WIRE BUILDER consulted and recommended pur ed diet with moderately thick liquids. Upon discharge it is recommended that patient wear a Holter monitor for 30 days and follow-up with [facility]. She was transferred to [facility] on 12/02. She participated with intensive rehab [...] smoker and HLD. MONIE SEWELL, DINAH [address] [facility], [address], [place], [address], [facility] - [employer] [facility] 12/30/2023 20:17:57 01/01/2024 text/html ROS as noted in the HPI Kisha is seen today for discharge. Per pt./family request, she is transferring to [facility] today for continued care. She is a 58 yo female who is here for SNF rehab services after acute rehab at [facility], and previous hospitalization at [facility] for a right MCA stroke and s/p thrombectomy. Kisha presented to the [facility] ED on 11/27 with left facial droop and left sided numbness. According to dc summary from [facility]: she presented to [facility] ER on 11/27 for CC left-sided facial droop and weakness. Patient's last known well time was 9:30 PM the night prior. Patient was noted to have persistent left-sided deficits. CT head unremarkable for acute intracranial pathology. CTA head and neck significant for distal right M1 occlusion with patency of distal branches. Patient was [place] [facility] [place] and evaluation for endovascular thrombectomy. [...] Patient was initiated on aspirin and statin. DROP WIRE BUILDER consulted and recommended pur ed diet with moderately thick liquids. Upon discharge it is recommended that patient wear a Holter monitor for 30 days and follow-up with [facility]. She was transferred to [facility] on 12/02. She participated with intensive rehab [...] smoker and HLD. MONIE SEWELL NP [address] [facility], [address], [place], [address], [facility] 01/01/2024 14:19:57 OBGyn Episode No OBEpisode recorded.
[2025-05-18 07:22] LABS: Hematocrit 23.3 % (37.0-47.0); Hemoglobin 7.5 g/dl (12.0-16.0); Imm Gran Abs Auto 0.05 X10*3/uL (0.00-0.03); Imm Gran Pct Auto 0.7 % (0.0-0.4); Lymphocytes Absolute Auto 1.5 X10*3/uL (1.2-4.9); Mean Corpuscular HGB Conc 32.2 g/dl (31.0-35.0); Mean Corpuscular Hemoglobin 29.2 pg (27.0-33.0); Mean Corpuscular Volume 90.7 fL (80.0-98.0); NRBC Abs Auto 0.000 X10*3/uL (0.0-0.012); NRBC Pct Auto 0.0 /100WBC (0.0-0.2); Platelet Count 227 X10*3/uL (160-400); Red Blood Count 2.57 X10*6/uL (4.20-5.50); White Blood Count 6.8 X10*3/uL (4.8-10.8)
[2025-05-18 07:59] LABS: Anion Gap 9 (12-20); Blood Urea Nitrogen 16 mg/dL (9-16); Calcium 7.6 mg/dL (8.4-10.2); Carbon Dioxide 28 mmol/L (22-29); Chloride 97 mmol/L (96-108); Estimated Glomerular Filt Rate 16; Potassium 2.9 mmol/L (3.3-5.1); Sodium 131 mmol/L (135-145)
== END 2025-05-18 06:54 | disposition home or self-care (01) ==
LOC: HO.MMNH2L 06:53
PROVIDERS: Visit Provider Physician Assistant Medical
DX: N18.6 End stage renal disease (principal); D63.1 Anemia in chronic kidney disease
CPT/HCPCS: 36415; 80048; 85025